=== PATIENT | female | born 1955 | race Caucasian/White ===

== ENCOUNTER 2022-12-29 04:11 | Emergency (ER) | payer OTHER, SELFPAY ==
[2022-12-29 04:17] VITALS: BP 175/77; PULSE 70; RESP 16; TEMP 36.6; O2SAT 97; BMI 33.1
--- NOTE | 2022-12-29 04:42 | ECG_ITS ---
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
[2022-12-29 04:47] LABS: Basophils Percent Auto 0.2 % (0.2-2.0); Eosinophils Absolute Auto 0.3 10^3/uL (0.0-0.7); Eosinophils Percent Auto 3.6 % (0.9-7.0); Hematocrit 35.1 % (36.0-48.0); Immature Granulocytes Abs Auto 0.17 10^3/uL (0.00-0.03); Immature Granulocytes Pct Auto 1.8 % (0.0-0.5); Lymphocytes Absolute Auto 1.3 10^3/uL (1.2-3.8); Lymphocytes Percent Auto 13.7 % (20.5-60.0); Mean Corpuscular HGB Conc 34.2 g/dL (29.9-35.2); Mean Corpuscular Hemoglobin 28.4 pg (26.7-34.0); Mean Platelet Volume 9.8 fL (9.5-13.5); Monocytes Absolute Auto 0.9 10^3/uL (0.3-0.8); Monocytes Percent Auto 10.2 % (1.7-12.0); Neutrophils Absolute Auto 6.5 10^3/uL (1.4-6.5); Neutrophils Percent Auto 70.5 % (43.0-75.0); Platelet Count 269 10^3/uL (150-450); Red Blood Count 4.23 10^6/uL (4.20-5.40); Red Cell Distribution Width 13.7 % (11.0-15.0); White Blood Count 9.2 10^3/uL (4.0-11.0)
[2022-12-29 04:58] LABS: Alanine Aminotransferase 12 U/L (14-59); Albumin Globulin Ratio 0.9; Albumin Level 3.3 g/dL (3.4-5.0); Alkaline Phosphatase 92 U/L (46-116); Anion Gap 10.3; Aspartate Amino Transferase <5 U/L (15-37); BUN Creatinine Ratio 33.3; Bilirubin Total 0.3 mg/dL (0.2-1.0); Calcium 9.2 mg/dL (8.5-10.1); Carbon Dioxide 30.3 mmol/L (21.0-32.0); Chloride 102 mmol/L (98-107); Estimated GFR (African America 56 (>=60); Estimated GFR (Non-African Ame 46 (>=60); Globulin 3.6 g/dL; Glucose 109 mg/dL (74-106); Potassium 3.6 mmol/L (3.5-5.1); Sodium 139 mmol/L (136-145); Total Protein 6.9 g/dL (6.4-8.2)
--- NOTE | 2022-12-29 05:03 | ED.ABDPAIN1 ---
HPI - Abdominal Pain General Chief Complaint: Abdominal Pain Stated Complaint: GENERAL WEAKNESS, 3 WEEKS POST COVID Time Seen by Provider: 12/29/22 04:40 Source: patient Mode of arrival: walk-in Limitations: no limitations History of Present Illness HPI narrative: The patient presented to us with a lower abdominal pain that resolved and she mentioned that she is feeling much better but she had some dizziness yesterday and 1 bowel movement that was loose the day before and the patient admitted that she have history of IBS and this is similar to her regular pain But she wanted to make sure that she is good to go to work at that she is feeling better Related Data Home Medications Medication Instructions Recorded Confirmed carvedilol 25 mg tablet mg 12/29/22 chlorthalidone 25 mg tablet mg 12/29/22 hydroxyzine HCl 10 mg tablet mg 12/29/22 lisinopril 40 mg tablet mg 12/29/22 methylprednisolone 4 mg tablets in mg 12/29/22 a dose pack pantoprazole 40 mg tablet,delayed mg PO 12/29/22 release rosuvastatin 40 mg tablet mg 12/29/22 Allergies Allergy/AdvReac Type Severity Reaction Status Date / Time Sulfa (Sulfonamide Allergy Mild Rash Verified 12/29/22 04:17 Antibiotics) Review of Systems ROS Status of ROS 10 or more systems reviewed and unremarkable except as noted in history and below Exam Narrative Exam Narrative: Nurses notes and vital signs reviewed and patient is not hypoxic. General: Well-appearing and in no apparent distress. Skin: Warm, dry, no pallor noted. No rash. Head: Normocephalic, atraumatic. Neck: Supple, non-tender. Eye: Pupils are equal, round and EOMI. No scleral icterus. Ears, Nose, Mouth, and Throat: TM are clear, no nasal mucosal hypertrophy. Oral mucosa is moist, no posterior oropharynx erythema, uvula is mid-line Cardiovascular: Regular Rate and Rhythm without murmur, gallop or rub. Respiratory: No accessory muscle use or respiratory distress. Lungs are clear to auscultation, no wheezing, rales or rhonchi Chest Wall: no tenderness Back: No midline thoracic or lumbar vertebral tenderness. No CVA tenderness Musculoskeletal: normal ROM, no calf or popliteal tenderness, no lower extremity edema/swelling GI: Abdomen is soft, non-distended. Normal bowel sounds. No masses appreciated. No tenderness to palpation. No rebound, guarding, or rigidity noted. Neurological: A&O x4. No cranial nerve dysfunction observed. No truncal ataxia. Moves all extremities. Sensation intact. Psychiatric: Cooperative and interactive. Normal mood and affect. Constitutional Vital Signs, click to edit/add: Last Vital Signs Temp 97.9 F 12/29/22 04:17 Pulse 70 12/29/22 04:17 Resp 16 12/29/22 04:17 BP 175/77 H 12/29/22 04:17 Pulse Ox 97 12/29/22 04:17 O2 Del Method Room Air 12/29/22 04:17 Course Vital Signs Vital signs: Vital Signs Temperature 97.9 F 12/29/22 04:17 Pulse Rate 70 12/29/22 04:17 Respiratory Rate 16 12/29/22 04:17 Blood Pressure 175/77 H 12/29/22 04:17 Pulse Oximetry 97 12/29/22 04:17 Oxygen Delivery Method Room Air 12/29/22 04:17 Temperature 97.9 F 12/29/22 04:17 Pulse Rate 70 12/29/22 04:17 Respiratory Rate 16 12/29/22 04:17 Blood Pressure 175/77 H 12/29/22 04:17 Pulse Oximetry 97 12/29/22 04:17 Oxygen Delivery Method Room Air 12/29/22 04:17 MDM - Abdominal Pain MDM Narrative Medical decision making narrative: Examination was benign the patient EKG was showing sinus rhythm with a heart rate of [address] elevation or depression The patient abdominal examination showed no tenderness in the CBC and chemistry showed mild acute kidney injury The patient was instructed on hydration The patient blood pressure was noted to be elevated and she did not take her blood pressure medication yet, she was instructed to take her medication on time The patient is to follow up with primary care physician in next 2-3 days or to return to the emergency department should any of the signs or symptoms worsen or new symptoms develop. The patient agrees with the following Diagnosis and Treatment plan and the patient will be discharged home. Lab Data Labs: Lab Results 12/29/22 Range/Units 04:25 WBC 9.2 (4.0-11.0) 10^3/uL RBC 4.23 (4.20-5.40) 10^6/uL Hgb 12.0 (12.0-16.0) g/dL Hct 35.1 L (36.0-48.0) % MCV 83.0 (81.0-99.0) fL MCH 28.4 (26.7-34.0) pg MCHC 34.2 (29.9-35.2) g/dL RDW 13.7 (11.0-15.0) % Plt Count 269 (150-450) 10^3/uL MPV 9.8 (9.5-13.5) fL Neut % (Auto) 70.5 (43.0-75.0) % Lymph % (Auto) 13.7 L (20.5-60.0) % [place] % (Auto) 10.2 (1.7-12.0) % Eos % (Auto) 3.6 (0.9-7.0) % Baso % (Auto) 0.2 (0.2-2.0) % Neut # (Auto) 6.5 (1.4-6.5) 10^3/uL Lymph # (Auto) 1.3 (1.2-3.8) 10^3/uL [place] # (Auto) 0.9 H (0.3-0.8) 10^3/uL Eos # (Auto) 0.3 (0.0-0.7) 10^3/uL Baso # (Auto) 0.0 (0.0-0.1) 10^3/uL Abs Immat Gran (auto) 0.17 H (0.00-0.03) 10^3/uL Imm/Tot Granulo (auto) 1.8 H (0.0-0.5) % Sodium 139 (136-145) mmol/L Potassium 3.6 (3.5-5.1) mmol/L Chloride 102 (98-107) mmol/L Carbon Dioxide 30.3 (21.0-32.0) mmol/L Anion Gap 10.3 BUN 39.0 H (7.0-18.0) mg/dL Creatinine 1.17 H (0.55-1.02) mg/dL Est GFR ( Amer) 56 L (>=60) Est GFR (Non-Af Amer) 46 L (>=60) BUN/Creatinine Ratio 33.3 Glucose 109 H (74-106) mg/dL Calcium 9.2 (8.5-10.1) mg/dL Total Bilirubin 0.3 (0.2-1.0) mg/dL AST <5 L (15-37) U/L ALT 12 L (14-59) U/L Alkaline Phosphatase 92 (46-116) U/L Troponin I High Sens 5.0 (4.0-51.3) pg/mL Total Protein 6.9 (6.4-8.2) g/dL Albumin 3.3 L (3.4-5.0) g/dL Globulin 3.6 g/dL Albumin/Globulin Ratio 0.9 Discharge Plan Discharge Chief Complaint: Abdominal Pain Clinical Impression: Gastroenteritis Patient Disposition: Home, Self-Care Time of Disposition Decision: 05:12 Condition: Good Mode of Transportation: Private Vehicle Prescriptions / Home Meds: No Action carvedilol 25 mg tablet chlorthalidone 25 mg tablet pantoprazole 40 mg tablet,delayed release (DR/EC) PO methylprednisolone 4 mg tablets,dose pack hydroxyzine HCl 10 mg tablet lisinopril 40 mg tablet rosuvastatin 40 mg tablet Instructions: Gastroenteritis (ED) Stand Alone Forms: Portal Instructions Referrals: Farzana Aldana MD [Primary Care Provider] - 1 week
[2022-12-29] MEDS: 0.9 % SODIUM CHLORIDE 1,000 ML 500 ML IV (05:15)
== END 2022-12-29 06:53 | disposition home or self-care (01) ==
PROVIDERS: Emergency Provider Emergency Medicine; PCP Family Medicine
DX: K52.9 Noninfective gastroenteritis and colitis, unspecified (principal); N17.9 Acute kidney failure, unspecified; K58.9 Irritable bowel syndrome, unspecified; Z79.899 Other long term (current) drug therapy
CPT/HCPCS: 36415; 80053; 84484; 85025; 93005; 99284

== ENCOUNTER 2023-03-27 11:16 | Outpatient (OUT) | payer OTHER, SELFPAY ==
--- NOTE | 2023-03-27 | US_ITS ---
[facility] [place] [id number] Patient Name: PEBBLES PEREYRA MRN: [id number] date: 1955 Sex: F Assigned Patient Location: [facility] Current Patient Location: [facility] Accession/Order Number: [id number] Exam Date: 03/27/2023 11:30 Report Date: 03/27/2023 13:41 At the request of: JEFFY RAMOS Procedure: US venous doppler LE RT EXAMINATION: US venous doppler LE RT HISTORY: M25.471 , right ankle swelling COMPARISON: No relevant comparison available. FINDINGS: REGION: Right lower extremity THROMBI: None. COMPRESSIBILITY: Normal compressibility. FLOW: Normal waveform and antegrade flow between 5 and 20 cm/s. OTHER: None. US/US venous doppler LE RT IMPRESSION: 1. No deep vein thrombus within the right lower extremity. Electronically authenticated by: KIRK LEWIS Date: 03/27/2023 13:41
== END 2023-03-27 11:17 | disposition home or self-care (01) ==
PROVIDERS: PCP Family Medicine; Visit Provider Family Medicine
DX: M79.604 Pain in right leg (principal)
CPT/HCPCS: 93971

== ENCOUNTER 2023-05-05 10:18 | Outpatient (OUT) | payer OTHER, SELFPAY ==
--- NOTE | 2023-05-05 10:23 | XR_ITS ---
[address] [address] Patient Name: PEBBLES PEREYRA MRN: [id number] date: 1955 Sex: F Assigned Patient Location: [facility] Current Patient Location: [facility] Accession/Order Number: [id number] Exam Date: 05/05/2023 10:27 Report Date: 05/05/2023 10:55 At the request of: JEFFY RAMOS Procedure: XR lumbar spine 2-3V EXAM: XR lumbar spine 2-3V HISTORY: Low Back Pain M54.50 COMPARISON: None. TECHNIQUE: 3 views Findings/impression: Satisfactory alignment. Maintained vertebral body heights and disc spaces. Mild facet arthropathy of L4-S1. No acute fracture or subluxation. Nonobstructive bowel gas pattern. Electronically authenticated by: JANN ACOSTA Date: 05/05/2023 10:55
== END 2023-05-05 10:19 | disposition home or self-care (01) ==
LOC: RAD 10:20
PROVIDERS: PCP Family Medicine; Visit Provider Family Medicine
DX: M54.50 Low back pain, unspecified (principal)
CPT/HCPCS: 72100

== ENCOUNTER 2023-06-24 08:33 | Outpatient (OUT) | payer OTHER, SELFPAY ==
--- OUTSIDE RECORDS SUMMARY | 2023-06-24 08:38 | XMS_ITS | CCD ---
Author Name Unknown Address [address] [place] [address] Organization [facility] Care Team Providers Care Senior Architectural Designer Name Role Phone Alex Horton Unavailable ARCADIO PRIEST Attending Unavailable Farzana Ramos Unavailable MD Farzana Ramos Attending Provider RICHARD, DR FARZANA Smith Admitting Unavailable RAMOS, DR FARZANA Smith Attending Unavailable RAMOS, DR FARZANA Smith Primary Care Unavailable ZIEBSHIRLEY, DR VICTOR HUGO Burton Consulting Unavailable RAMOS, DR FARZANA Smith Consulting Unavailable MISC, DR MCLAUGHLIN Admitting Unavailable MISC, DR MCLAUGHLIN Attending Unavailable RAMOS, DR FARZANA Smith Primary Care Unavailable MISC, DR MCLAUGHLIN Consulting Unavailable RICHARD, DR FARZANA Smith Admitting Unavailable RAMOS, DR FARZANA Smith Attending Unavailable RAMOS, DR FARZANA Smith Primary Care Unavailable CRISTOBALEBSHIRLEY, DR VICTOR HUGO Burton Consulting Unavailable RICHARD, DR FARZANA Smith Consulting Unavailable RICHARD, DR FARZANA Smith Primary Care Unavailable TUNG, DR JANN Burton Consulting Unavailable TUNG, DR JANN Burton Admitting Unavailable TUNG, DR JANN Burton Attending Unavailable RO BONILLA Consulting Unavailable LEVY BRAND Admitting Unavailable SUNDAY, LEVY Attending Unavailable RAMOS, DR FARZANA Smith Primary Care Unavailable LEVY BRAND Consulting Unavailable WINDY, DR HAQUE Admitting Unavailable WINDY, DR HAQUE Attending Unavailable RICHARD, DR FARZANA Smith Primary Care Unavailable WINDY, DR HAQUE Consulting Unavailable NON STAFF Primary Care Provider UnavailDO Alex Key Attending Provider Jean Paul FRANCISCO Attending Unavailable Gucci Meyers Unavailable Marine Watson Unavailable NON STAFF Primary Care Provider UnavailMD Gucci Christine Attending Provider Farzana Ramos Admitting Unavailable Farzana Ramos Attending Unavailable NON STAFF Primary Care Unavailable Gucci Meyers Admitting UnavailGucci Christine Attending UnavailAlex Key Admitting Unavailable Alex Horton Attending Unavailable NON STAFF Primary Care Unavailable Allergies Allergy Classification Reported Allergen(s) Allergy Type Date of Onset Reaction(s) Facility (17 sources) Sulf-10 Drug allergy Unknown [facility] Other (4 sources) Sulfonamides (Antibiotic); Translations: [SULFA (SULFONAMIDE ANTIBIOTICS)] Propensity to adverse reactions to drug (disorder) 06-02-20 14 [facility] Repository (3 sources) steriod Propensity to adverse reactions 10-17-19 22 Redness of Skin [facility] (1 source) Sulfonamides (Antibiotic) Drug allergy (disorder) 01-10-20 13 [facility] Repository (7 sources) HMG-CoA reductase inhibitor Drug allergy 08-27-19 14 Unknown [facility] Other (12 sources) Penicillin Drug Allergy 07-11-19 17 Unknown [facility] Other (3 sources) Allergies Reconciled Propensity to adverse reactions 04-30-20 21 Unknown [facility] Other (12 sources) Substance with sulfonamide structure and antibacterial mechanism of action (substance) Drug allergy 10-19-19 19 Unknown [facility] Other (3 sources) patient allergy list reviewed by nurse or physicia Propensity to adverse reactions 11-11-19 19 Comment:Done [facility] Other (7 sources) Statins Depletion *DIETARY PRODUCTS/DIETARY MANAGE Propensity to adverse reactions Unknown [facility] Other (1 source) Sulfamethoxazole; Translations: [sulfamethoxazole ] Drug Allergy [facility] Repository Medications Current Medications Medication Drug Class(es) Dates Sig (Normalized) Sig (Original) Aspir-81 (20 sources) Aspir-81 Active carvedilol 25 mg oral tablet (20 sources) alpha-Adrenergic Kalpana, beta-Adrenergic Kalpana Start: 10-17-19 take 25 mg by mouth twice daily Carvedilol Active 25 MG PO Twice daily October 15, 2021 11:00pm escitalopram 10 mg oral tablet (7 sources) Serotonin Reuptake Inhibitor Start: 04-09-20 take 1 tablet by mouth every twenty-four hours Lexapro 10 MG 1 tablet Orally Once a day for 30 day(s) Mar, Active hydroCHLOROthiazide 25 mg oral tablet (12 sources) Thiazide Diuretic Start: 10-17-19 take 25 mg by mouth once daily in the morning Hydrochlorothiazide Active 25 MG PO Every morning October 15, 2021 11:00pm hydrOXYzine hydrochloride 10 mg oral tablet (13 sources) Antihistamine Start: 11-22-19 take 1 tablet by mouth once daily at bedtime as needed hydrOXYzine HCl 10 MG 1 tablet at bedtime as needed Orally qhs prn for 30 days Nov, Active lisinopril 40 mg oral tablet (20 sources) Angiotensin Converting Enzyme Inhibitor take 1 tablet by mouth every twenty-four hours Lisinopril 40 MG 1 tablet Orally Once a day Active take 1 tablet by nazario th every twenty-four hours Lisinopril 10 MG 1 tablet Orally Once a day Active meloxicam 15 mg oral tablet (19 sources) Nonsteroidal Anti-inflammatory Drug Start: 10-16-2021 take 15 mg by mouth once daily in the morning Meloxicam Active 15 MG PO Every morning October 15, 2021 11:00pm Nitro Sublingual 0.4 (5 sources) Nitro Sublingual 0.4 Active nystatin 648085 unt/ml topical cream (10 sources) Polyene Antifungal Nystatin 1000 00 UNIT/GM 1 application Externally Twice a day for 10 days Active Nystatin 828547 UNIT/GM 1 application Externally Twice a day for 10 days Active pantoprazole 40 mg delayed release oral tablet (20 sources) Proton Pump Inhibitor Start: 10-16-2021 take 40 mg by mouth once daily in the morning Pantoprazole Active 40 MG PO Every morning October 15, 2021 11:00pm rosuvastatin calcium 20 mg oral tablet (20 sources) HMG-CoA Reductase Inhibitor Start: 10-16-2021 take 20 mg by mouth once daily at bedtime Rosuvastatin Active 20 MG PO Daily at bedtime October 15, 2021 11:00pm take 1 tablet by mouth every oth er day Rosuvastatin Calcium 40 MG 1 tablet Orally qod for 100 days Active take 1 tablet by nazario th every twenty-four hours Crestor 40 MG 1 tablet Orally Once a day Not-Taking/PRN Completed/Discontinued Medications Medication Drug Class(es) Dates Sig (Normalized) Sig (Original) acetaminophen 325 mg / oxyCODONE hydrochloride 5 mg oral tablet (8 sources) Opioid Agonist Start: 11-14-2021 take 1 tablet by mouth every four to six hours as needed oxyCODONE-Acetami nophen 5-325 MG 1 tablet as needed Orally every 4-6 hrs for 7 days Nov, Not-Taking Start: 10-22-2021 take 1 tablet by nazario th every four hours Oxycodone-Acetaminophen (Percocet) 5-325 mg tablet Active 1 TAB PO Q4H 30 October 22, 2021 Amoxicillin-Pot Clavulanate (1 source) Amoxicillin-Pot Clavulanate Not-Taking cefdinir 300 mg oral capsule (16 sources) Cephalosporin Antibacterial Cefdinir 300 MG as directed Orally Not-Taking/PRN chlorthalidone 25 mg oral tablet (16 sources) Thiazide-like Diuretic take 1 tablet by mouth every twenty-four hours Chlorthalidone 25 MG 1 tablet in the morning with food Orally Once a day Not-Taking/PRN cyclobenzaprine hydrochloride 5 mg oral tablet (4 sources) Muscle Relaxant Start: 2021 take 1 tablet by mouth every eight hours at bedtime as needed Cyclobenzaprine HCl 5 MG 1 tablet at bedtime as needed Orally every 8 hours as needed for 7 days Mar, Not-Taking fluconazole 100 mg oral tablet (16 sources) Azole Antifungal Fluconazole 100 MG 1 tablet Orally Not-Taking/PRN methylPREDNISolone 4 mg oral tablet (4 sources) Corticosteroid Start: 2021 methylPREDNISolone 4 MG as directed Orally for 6 days Mar, Not-Taking Multi For Her - (9 sources) Multi For Her - as directed Orally Not-Taking Multi For Her - as directed Orally Active PEG 3350-KCl-Na Bicarb-NaCl (1 source) PEG 3350-KCl-Na Bicarb-NaCl Not-Taking traMADol hydrochloride 50 mg oral tablet (4 sources) Opioid Agonist Start: 04-02-2022 take 1 tablet by mouth every four to six hours as needed traMADol HCl 50 MG 1 tablet as needed Orally every 4-6 hours as needed for 7 days [facility] # [id number] Mar, Not-Taking triamcinolone acetonide 40 mg/ml injectable suspension (11 sources) Corticosteroid Start: 02-23-2023 Kenalog-40 Feb, 40 mg Problems Active Problems Problem Classification Problem Date Documented Date Episodic/Chronic Adjustment disorders (3 sources) Adjustment disorder with depressed mood; Translations: [Adjustment disorder with depressed mood] Onset: 11-04-2016 Chronic Anxiety disorders (20 sources) Anxiety; Translations: [Other specified anxiety disorders] Chronic Disorders of lipid metabolism (20 sources) Mixed hyperlipidemia; Translations: [Dyslipidemia] Onset: 02-19-2022 Chronic Essential hypertension (20 sources) Essential (primary) hypertension; Translations: [Essential hypertension] Onset: 03-10-2022 Chronic Fluid and electrolyte disorders (16 sources) Hypokalemia; Translations: [Hypokalemia] Episodic Immunizations and screening for infectious disease (3 sources) Vaccination given; Translations: [Encounter for immunization] Episodic Malaise and fatigue (19 sources) Fatigue; Translations: [Other fatigue] Episodic Mycoses (6 sources) Candidiasis of skin and nails; Translations: [Candidiasis of skin and nail] Onset: 11-16-2017 Episodic Nonmalignant breast conditions (3 sources) Inflammatory disorder of breast; Translations: [Mastitis without abscess] Episodic Osteoarthritis (20 sources) Osteoarthritis of left knee joint; Translations: [Unilateral primary osteoarthritis, left knee] Onset: 09-23-2021 Resolved: 10-28-2021 Chronic Other connective tissue disease (1 source) Other specified soft tissue disorders Episodic Other ear and sense organ disorders (3 sources) Otitis externa of left ear; Translations: [Unspecified otitis externa, left ear] Chronic Other ear and sense organ disorders (20 sources) Impacted cerumen; Translations: [Impacted cerumen, left ear] Onset: 10-05-2017 Episodic Other inflammatory condition of skin (1 source) Pruritus, unspecified Episodic Other inflammatory condition of skin (3 sources) Lichen simplex chronicus; Translations: [Lichen simplex chronicus] Episodic Other lower respiratory disease (2 sources) Other forms of dyspnea; Translations: [Other forms of dyspnea] Onset: 07-01-2022 Episodic Other nervous system disorders (19 sources) Abnormal gait; Translations: [Other abnormalities of gait and mobility] Episodic Other non-traumatic joint disorders (20 sources) Arthralgia of the pelvic region and thigh; Translations: [Pain in left hip] Onset: 08-06-2018 Episodic Other non-traumatic joint disorders (2 sources) Effusion, right ankle Episodic Other nutritional; endocrine; and metabolic disorders (3 sources) Simple obesity ; Translations: [Other obesity due to excess calories] Onset: 08-25-2016 Chronic Other nutritional; endocrine; and metabolic disorders (3 sources) Obesity; Translations: [Obesity, unspecified] Chronic Other nutritional; endocrine; and metabolic disorders (3 sources) Body mass index 30+ - obesity; Translations: [Body mass index 31.0-31.9, adult] Onset: 08-25-2016 Chronic Other nutritional; endocrine; and metabolic disorders (6 sources) Obese class I; Translations: [Body mass index 32.0-32.9, adult] Onset: 04-01-2018 Chronic Other screening for suspected conditions (not mental disorders or infectious disease) (4 sources) Encounter for screening mammogram for malignant neoplasm of breast; Translations: [ENC SCR MAMMO MALIG NEOPLASM BREAST] Onset: 09-24-2022 Episodic Other upper respiratory infections (11 sources) Acute pharyngitis, unspecified; Translations: [Acute laryngitis] Onset: 08-26-2013 Episodic Otitis media and related conditions (20 sources) Non-suppurative otitis media; Translations: [Unspecified nonsuppurative otitis media, left ear] Onset: 05-07-2022 Episodic Residual codes; unclassified (2 sources) Other specified postprocedural states Onset: 11-13-2021 Resolved: 11-13-2021 Episodic Residual codes; unclassified (16 sources) Edema; Translations: [Localized edema] Episodic Residual codes; unclassified (19 sources) Insomnia; Translations: [Insomnia, unspecified] Episodic Residual codes; unclassified (7 sources) Asymptomatic menopausal state; Translations: [Menopause] Episodic Residual codes; unclassified (1 source) Family history of malignant neoplasm of kidney; Translations: [FAM HX MALIGNANT NEOPLASM KIDNEY] Onset: 09-29-2022 Episodic Residual codes; unclassified (3 sources) Localized edema; Translations: [Localized edema] Episodic Residual codes; unclassified (3 sources) Postmenopausal state; Translations: [Asymptomatic menopausal state] Episodic Residual codes; unclassified (9 sources) Menopause present; Translations: [Asymptomatic menopausal state] Episodic Spondylosis; intervertebral disc disorders; other back problems (20 sources) Radiculopathy, lumbar region; Translations: [Left side sciatica] Onset: 03-31-2022 Episodic Unclassified (3 sources) Acute candidiasis of vulva and vagina; Translations: [Acute candidiasis of vulva and vagina] Unclassified (1 source) Unilateral primary osteoarthritis, left knee; Translations: [Unilateral primary osteoarthritis, left knee] Onset: 02-23-2023 Varicose veins of lower extremity (1 source) Asymptomatic varicose veins of bilateral lower extremities Episodic Past or Other Problems Problem Classification Problem Date Documented Da te Episodic/Chronic Abdominal pain (3 sources) Abdominal pain; Translations: [Unspecified abdominal pain] Onset: 02-07-2014 Episodic Allergic reactions (3 sources) Contact dermatitis; Translations: [Contact dermatitis and other eczema, due to unspecified cause] Onset: 04-10-2015 Episodic Blindness and vision defects (3 sources) Transient visual loss; Translations: [Transient visual loss] Onset: 06-30-2017 Episodic Chronic obstructive pulmonary disease and bronchiectasis (1 source) Bronchitis, not specified as acute or chronic; Translations: [BRONCHITIS NOT SPEC ACUTE/CHRON] Onset: 05-07-2022 Episodic Gastrointestinal hemorrhage (3 sources) Melena; Translations: [Melena] Onset: 02-25-2018 Episodic Genitourinary symptoms and ill-defined conditions (4 sources) Dysuria; Translations: [Dysuria] Onset: 03-06-2016 Episodic Inflammatory diseases of female pelvic organs (3 sources) Acute vaginitis; Translations: [Acute vaginitis] Onset: 09-13-2018 Episodic Joint disorders and dislocations; trauma-related (5 sources) Other tear of medial meniscus, current injury, left knee, initial encounter; Translations: [Other tear of medial meniscus, current injury, left knee, subsequent encounter] Onset: 11-16-2014 Resolved: 10-14-2021 Episodic Nonspecific chest pain (6 sources) Chest pain; Translations: [Other chest pain] Onset: 08-25-2016 Episodic Other aftercare (1 source) intermediate manager (current) use of aspirin; Translations: [CARE HOME CURRENT USE OF ASPIRIN] Onset: 05-07-2022 Episodic Other aftercare (1 source) 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; Translations: [OTH CARE HOME CURRENT DRUG THERAPY] Onset: 05-07-2022 Episodic Other circulatory disease (3 sources) Cardiovascular symptoms; Translations: [Other specified symptoms and signs involving the circulatory and respiratory systems] Onset: 07-20-2018 Episodic Other eye disorders (3 sources) Pain in eye; Translations: [Ocular pain, bilateral] Onset: 06-30-2017 Episodic Other inflammatory condition of skin (3 sources) Intertrigo; Translations: [Erythema intertrigo] Onset: 09-28-2013 Episodic Other lower respiratory disease (3 sources) Cough; Translations: [Cough] Onset: 11-14-2015 Episodic Other non-traumatic joint disorders (2 sources) Pain in left knee Onset: 09-23-2021 Resolved: 10-14-2021 Episodic Other skin disorders (3 sources) Disorder of skin and/or subcutaneous tissue; Translations: [Unspecified disorder of skin and subcutaneous tissue] Onset: 11-14-2015 Episodic Residual codes; unclassified (3 sources) Requires influenza virus vaccination; Translations: [Need for prophylactic vaccination and inoculation, Influenza] Onset: 02-29-2016 Episodic Residual codes; unclassified (3 sources) Family history of mental disorder; Translations: [Family history of psychiatric condition] Onset: 08-26-2013 Episodic Residual codes; unclassified (3 sources) Chill; Translations: [Chills (without fever)] Onset: 07-20-2018 Episodic Unclassified (1 source) Allergic cough R05.8 Unclassified (1 source) Lumbar pain M54.50 Viral infection (19 sources) Disease caused by 2019-nCoV; Translations: [COVID-19] Results Test Name Value Interpretation Reference Range Facility US venous duplex LE BIon US venous duplex LE [facility] [place] [address] Ultrasound Report Signed Patient: Pebbles Johnson MR#: [id number] : 1955 Acct:[id number] Age/Sex: 68 / F ADM Date: 06/03/23 Loc: [facility] Room: Type: [facility] Attending Dr: Gucci Meyers MD Ordering Provider: Gucci Meyers MD Date of Service: 06/03/23 US/US venous duplex LE BI: I83.813 Copies to: Gucci Meyers MD BILATERAL LOWER EXTREMITY VENOUS DUPLEX INDICATION: Symptomatic varicose veins and right ankle swelling. PROCEDURE: Color-flow duplex scanning is used to interrogate the deep venous system of the right and left lower extremities. The common femoral vein, femoral vein and popliteal vein show good compressibility with normal proximal and distal augmentation. The calf veins are compressible. US/US venous duplex LE BI IMPRESSION: NO EVIDENCE FOR DEEP VEIN THROMBOSIS OR PROXIMAL SUPERFICIAL THROMBOPHLEBITIS IN THE RIGHT OR LEFT LOWER EXTREMITY. Severe reflux of greater than 5 seconds was identified in the greater saphenous vein, bilaterally. The greater saphenous vein was patent from the groin to the ankle, bilaterally. Impression dictated by: Gucci Meyers MD06/03/2023 12:58 PM Dictation Location: [place] [address] Tech: Sondra Longo Transcribed By: SADIA 06/03/23 1258 Dictated By: Gucci Meyers MD 06/03/23 1258 Signed By: 06/03/23 1258 Normal [facility] XR knee LT 3V - NOT FOR ER U Danny 02-23-2023 XR knee LT 3V - NOT FOR ER USE [facility] [place] [address] XRay Report Signed Patient: Pebbles Johnson MR#: [id number] : 1955 Acct:[id number] Age/Sex: 68 / F ADM Date: 02/23/23 Loc: [facility] Room: Type: [facility] Attending Dr: Alex Horton DO Copies to: Alex Horton DO Ordering Provider: Alex Horton DO Date of Service: 02/23/23 XR/XR knee LT 3V - NOT FOR ER USE: Primary osteoarthritis of left knee LEFT KNEE - 3 views CLINICAL HISTORY: Continue left knee pain for months. COMPARISON: Left knee series 07/05/2020 FINDINGS: Mild degenerative changes without acute bony process. XR/XR knee LT 3V - NOT FOR ER USE IMPRESSION: MILD DEGENERATIVE CHANGES WITHOUT ACUTE BONY PROCESS. Impression dictated by: Marc Mak Jr., DVidalOVidal02/23/2023 3:35 PM Dictation Location: [place] [address] Transcribed By: [facility] 02/23/23 1535 Dictated By: Marc Mak Jr, DO 02/23/23 1534 Signed By: 02/23/23 1535 [facility] MG MAMM SCREEN 3D FELICIA CADon 09-24-2022 MG MAMM SCREEN 3D FELICIA CAD Patient: PEBBLES JOHNSON Exam Date: 09/24/2022 : 1955 Gender:F Ordering : DR FARZANA RAMOS M.D. Admission #: [id number] Family : Order #: [id number] CLICK HERE TO VIEW EXAM RADIOLOGY REPORT PROCEDURE: MAMMOGRAM SCREENING 3D BILATERAL CAD COMPARISON: MG MAMM SCREEN 3D FELICIA CAD, 09/09/2021. MG MAMM SCREEN FELICIA W CAD, 05/02/2020. MG MAMM SCREEN FELICIA W CAD, 07/26/2018. DIGITIZED_MAMMO, 11/17/2008. INDICATIONS: Screening mammography Calculator Name NCI Breast Cancer Risk Assessment Tool 5 Year Breast Cancer Risk 1.40% Lifetime Breast Cancer Risk 4.90% Personal Breast Cancer No Personal Ovarian Cancer No Treatments None Family Cancers Mother with kidney cancer at age 30. LOCATION: [facility] BREAST COMPOSITION: Heterogeneously dense,which may obscure small masses. FINDINGS: DIAGNOSTIC CATEGORY 2--BENIGN FINDING: RIGHT BREAST: No significant suspicious finding. No significant change has occurred. LEFT BREAST: No significant suspicious finding. Scattered benign-appearing calcifications are present. No significant change has occurred. RECOMMENDATIONS: ROUTINE MAMMOGRAM AND CLINICAL EVALUATION IN 12 MONTHS. PLEASE NOTE: A NORMAL MAMMOGRAM DOES NOT EXCLUDE THE POSSIBILITY OF BREAST CANCER. A CLINICALLY SUSPICIOUS PALPABLE LUMP SHOULD BE BIOPSIED. Dictated by: Victor Hugo Cesar M.D. on 09/24/2022 at 13:19 Approved by: Victor Hugo Cesar M.D. on 09/24/2022 at 13:25 Normal [facility] Urinalysis - DIPSTICKon 04- Appearance (U) clear [employer] Other Bilirubin Ql (U) small [employer] Other Color (U) yellow [facility] Other Glucose Ql (U) Negative [employer] Other Hemoglobin Ql (U) Negative [employer] Other Ketones Ql (U) off chart [employer] Other Leukocyte esterase Test strip Ql (U) Negative [facility] Other Nitrite Ql (U) Negative [employer] Other pH (U) 5.0 [pH] [facility] Other Protein Ql (U) Negative [employer] Other Specific gravity (U) [Rel density] 1.010 [facility] Other Urobilinogen (U) [Mass/Vol] 0.2 mg/dL [facility] Other Urinalysis - DIPSTICK [facility] Other Urine Cultureon 09-24-2022 Bacteria identified Cx Nom (U) <9,000 colonies/ml mixed bacterial skin contaminants 2 Days PERFORMED BY: [place] [address] PATHOLOGIST BRIDGE MECHANIC DARRICK GARZA M.D. Normal [facility] Comment on above: Performed By: #### C UU #### [facility] [address] [place] [address] LIPID PROFILEon 07-05-2022 CHOL-HDL RATIO NORM SEE BELOW Normal [facility] Comment on above: Result Comment: 3.3 - 4.4 LOW RISK 4.4 - 7.1 AVERAGE RISK 7.1 - 11.0 MODERATE RISK >11.0 HIGH RISK Performed By: #### L IPID #### [facility] [address] [place] [address] Dr. Carlos Barlow Cholesterol [Mass/Vol] 181 mg/dL Normal <=200 [facility] Comment on above: Performed By: #### L IPID #### [facility] [address] [place] [address] [address] Carlos Barlow Cholesterol in HDL [Mass/Vol] 63 mg/dL Critically high 40-60 [facility] Comment on above: Performed By: #### L IPID #### [facility] [address] [place] [id number] Carlos Barlow Cholesterol in LDL [Mass/Vol] 88.0 mg/dL Normal [facility] Comment on above: Performed By: #### L IPID #### [facility] [address] [place] [address] [address] Carlos Barlow Cholesterol.total /Cholesterol in HDL [Mass ratio] 2.9 {ratio} Normal [facility] Comment on above: Performed By: #### L IPID #### [facility] [address] [place] [address] [address] Carlos Barlow HDL NORMAL > or = 60 mg/dl - LO W CARDIOVASCULAR RISK <40 mg/dl - HIGH CARDIOVASCULAR RISK Normal [facility] Comment on above: Performed By: #### L IPID #### [facility] [address] [address] [address] Carlos Barlow LDL CALC NORMAL SEE BELOW Normal [facility] Comment on above: Result Comment: <100 mg/dl OPTIMAL 100 - 129 mg/dl NEAR OR ABOVE OPTIMAL 130 - 159 mg/dl BORDERLINE HIGH 160 - 189 mg/dl HIGH >190 mg/dl VERY HIGH Performed By: #### L IPID #### [facility] [address] [address] [address] Carlos Barlow Triglyceride [Mass/Vol] 150 mg/dL Normal <=150 [facility] Comment on above: Performed By: #### L IPID #### [facility] [address] [address] [address] Carlos Barlow VLDL CALC 30.0 mg/dL Normal [facility] Comment on above: Performed By: #### L IPID #### [facility] [address] [place], [place] [address] Dr. Carlos Barlow 37on 07-01-2022 37 -Check cholesterol blood work when fasting -Continue current medications Normal [facility] Office Visiton 07-01-2022 Follow-up visit [id number] Pebbles Johnson 1955 F Date Provider Department Center 07/01/2022 [id number] LARIOS [facility] No family history on file Level of Service:57223 MS OFFICE/OUTPATIENT ESTABLISHED LOW MDM 20-29 MIN Reason for Visit and Comments: Hypertension [701328] Hyperlipidemia [182] Normal [facility] XR CHEST 1 Von 05-05-2022 XR CHEST 1 V EXAM: XR CHEST 1 V HISTORY: COUGH COMPARISON: 10/11/2019 TECHNIQUE: Chest single view. FINDINGS: Lines/tubes/devices: None. Cardiomediastinum: Cardiac silhouette appears normal in size. Unremarkable mediastinal silhouette. Vasculature: No increased pulmonary vasculature. Lungs/pleura: No consolidation, sizeable effusion, or visible pneumothorax. Mild coarsening of interstitial lung markings suggested, similar to the prior exam, likely chronic changes. Mild biapical thickening. Suspect small granulomas, most visible towards the right lung apex. Bones/soft tissues: Bony thorax appears grossly intact as seen. IMPRESSION: No acute cardiopulmonary findings. Electronically authenticated by: RO BONILLA Date: 2022-05-05 06:41 Normal [facility] XR NECK SOFT TISSUEon 2021 XR NECK SOFT TISSUE EXAM: XR NECK SOFT TISSUE HISTORY: COUGH COMPARISON: None. FINDINGS: 2 views of the neck were obtained using soft tissue technique. The airway appears patent and nondistended. Epiglottis and aryepiglottic folds appear well-defined. No pathologic prevertebral soft tissue thickening is seen. No unexpected radiopaque foreign body is seen. Mild degenerative changes of the cervical spine with mild narrowing of the disc spaces and small disc marginal osteophytes at the C4-C5 and C5-C6 levels. IMPRESSION: No acute radiographic abnormality of the neck soft tissues. Electronically authenticated by: RO BONILLA Date: 2022-05-05 06:42 Normal [facility] XR LSPINE MIN 4 VIEWSon 03-15 XR LSPINE MIN 4 VIEWS EXAMINATION: XR LSPINE MIN 4 VIEWS HISTORY: Left side sciatica ; low back and left hip pain for 2 weeks COMPARISON: No relevant comparison available. FINDINGS: BONES: 3 mm anterior listhesis of L4 on 5. Moderate degenerative facet arthropathy L4-L5, L5-S1. No fracture or bone lesion. DISC SPACES: Mild narrowing L4-L5, L5-S1. PARASPINOUS: Negative. No paraspinous abnormality is seen. OTHER: Negative. IMPRESSION: 1. 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 Electronically authenticated by: VICTOR HUGO CESAR Date: 2022-04-01 06:49 Normal [facility] 36on 03-24-2022 36 Patient called c/o increased muscle cramps and pain since Crestor was increased to 40mg daily on 02/25/2022. She has been in severe pain and unable to ambulate at times. She states she cannot tolerate bigger dose. Any recommendations? Please advise. Thanks. 03/25/22: Spoke with patient and made her aware of Dr. Temple's suggestion. She will try it and let us know. Normal [facility] LIPID PROFILEon 03-10-2022 CHOL-HDL RATIO NORM SEE BELOW Normal [facility] Comment on above: Result Comment: 3.3 - 4.4 LOW RISK 4.4 - 7.1 AVERAGE RISK 7.1 - 11.0 MODERATE RISK >11.0 HIGH RISK Performed By: #### B MP, LIPID, LIVER #### [facility] [address] [address] [address] Carlos Barlow Cholesterol [Mass/Vol] 186 mg/dL Normal <=200 [facility] Comment on above: Performed By: #### B MP, LIPID, LIVER #### [facility] [address] [address] [address] Carlos Barlow Cholesterol in HDL [Mass/Vol] 61 mg/dL Critically high 40-60 [facility] Comment on above: Performed By: #### B MP, LIPID, LIVER #### [facility] [address] [address] [address] Carlos Barlow Cholesterol in LDL [Mass/Vol] 90.4 mg/dL Normal [facility] Comment on above: Performed By: #### B MP, LIPID, LIVER #### [facility] [address] [address] [address] Carlos Barlow Cholesterol.total /Cholesterol in HDL [Mass ratio] 3.0 {ratio} Normal [facility] Comment on above: Performed By: #### B MP, LIPID, LIVER #### [facility] [address] [address] [address] Carlos Barlow HDL NORMAL > or = 60 mg/dl - LO W CARDIOVASCULAR RISK <40 mg/dl - HIGH CARDIOVASCULAR RISK Normal [facility] Comment on above: Performed By: #### B MP, LIPID, LIVER #### [facility] [address] [address] [address] Carlos Barlow LDL CALC NORMAL SEE BELOW Normal [facility] Comment on above: Result Comment: <100 mg/dl OPTIMAL 100 - 129 mg/dl NEAR OR ABOVE OPTIMAL 130 - 159 mg/dl BORDERLINE HIGH 160 - 189 mg/dl HIGH >190 mg/dl VERY HIGH Performed By: #### B MP, LIPID, LIVER #### [facility] [address] [place] [address] Dr. Carlos Barlow Triglyceride [Mass/Vol] 173 mg/dL Critically high <=150 [facility] Comment on above: Performed By: #### B MP, LIPID, LIVER #### [facility] [address] [address] [address] Carlos Barlow VLDL CALC 34.6 mg/dL Normal [facility] Comment on above: Performed By: #### B MP, LIPID, LIVER #### [facility] [address] [place] [address] Dr. Carlos Barlow LIVER PROFILEon 03-10-2022 Albumin [Mass/Vol] 3.6 g/dL Normal 3.4-5.0 [facility] Comment on above: Performed By: #### B MP, LIPID, LIVER #### [facility] [address] [place] [address] Dr. Carlos Barlow Albumin/Globulin [Mass ratio] 1.1 {ratio} Normal [facility] Comment on above: Performed By: #### B MP, LIPID, LIVER #### [facility] [address] [address] [address] Carlos Barlow ALP [Catalytic activity/Vol] 92 U/L Normal 46-116 [facility] Comment on above: Performed By: #### B MP, LIPID, LIVER #### [facility] [address] [address] [address] Carlos Barlow ALT [Catalytic activity/Vol] 20 U/L Normal 14-59 [facility] Comment on above: Performed By: #### B MP, LIPID, LIVER #### [facility] [address] [address] [address] Carlos Barlow AST [Catalytic activity/Vol] 16 U/L Normal 15-37 [facility] Comment on above: Performed By: #### B MP, LIPID, LIVER #### [facility] [address] [address] [address] Carlos Barlow BILI, CONJUGATED 0.1 mg/dL Normal 0.0-0.2 [facility] Comment on above: Performed By: #### B MP, LIPID, LIVER #### [facility] [address] [address] [address] Carlos Barlow Bilirubin [Mass/Vol] 0.3 mg/dL Normal 0.2-1.0 [facility] Comment on above: Performed By: #### B MP, LIPID, LIVER #### [facility] [address] [address] [address] Carlos Barlow Globulin (S) [Mass/Vol] 3.4 g/dL Normal [facility] Comment on above: Performed By: #### B MP, LIPID, LIVER #### [facility] [address] [address] [address] Carlos Barlow Protein [Mass/Vol] 7.0 g/dL Normal 6.4-8.2 [facility] Comment on above: Performed By: #### B MP, LIPID, LIVER #### [facility] [address] [address] [address] Carlos Barlow PROF CHEM 8 (BAS METB)on Anion gap [Moles/Vol] 12.0 mmol/L Normal [facility] Comment on above: Performed By: #### B MP, LIPID, LIVER ####[facility] [address] [address]Dr. Carlos Barlow Calcium [Mass/Vol] 9.6 mg/dL Normal 8.5-10.1 [facility] Comment on above: Performed By: #### B MP, LIPID, LIVER ####[facility] [address] [address]Dr. Carlos Barlow Chloride [Moles/Vol] 105 mmol/L Normal 98-107 [facility] Comment on above: Performed By: #### B MP, LIPID, LIVER ####[facility] [address] [address]Dr. Carlos Barlow CO2 [Moles/Vol] 26.5 mmol/L Normal 21.0-32.0 [facility] Comment on above: Performed By: #### B MP, LIPID, LIVER ####[facility] [address] [address]Dr. Carlos Barlow Creatinine [Mass/Vol] 0.89 mg/dL Normal 0.55-1.02 [facility] Comment on above: Performed By: #### B MP, LIPID, LIVER ####[facility] [address] [address]Dr. Carlos Barlow EGFR-AF TAJIK >60 Normal >=60 [facility] Comment on above: Performed By: #### B MP, LIPID, LIVER ####[facility] [address] [address]Dr. Carlos Barlow EGFR-NON AF TAJIK >60 Normal >=60 [facility] Comment on above: Performed By: #### B MP, LIPID, LIVER ####[facility] [address] [address]Dr. Carlos Barlow Glucose [Mass/Vol] 116 mg/dL Critically high 74-106 [facility] Comment on above: Performed By: #### B MP, LIPID, LIVER ####[facility] [address] [address]Dr. Carlos Barlow Potassium [Moles/Vol] 4.0 mmol/L Normal 3.5-5.1 [facility] Comment on above: Performed By: #### B MP, LIPID, LIVER ####[facility] [address] [address]Dr. Carlos Barlow Sodium [Moles/Vol] 139 mmol/L Normal 136-145 [facility] Comment on above: Performed By: #### B MP, LIPID, LIVER ####[facility] [address] [address]Dr. Dulceulices Barlow Urea nitrogen [Mass/Vol] 24.0 mg/dL Critically high 7.0-18.0 [facility] Comment on above: Performed By: #### B MP, LIPID, LIVER ####[facility] [address] [address]Dr. Carlos Barlow Urea nitrogen/Creatini ne [Mass ratio] 26.9 mg/mg Normal [facility] Comment on above: Performed By: #### B MP, LIPID, LIVER ####[facility] [address] [address]Dr. Carlos Barlow Orders Onlyon 02-21-2022 Orders Only [id number] Pebbles Johnson 1955 F Date Provider Department Center 02/21/2022 RadhikaEVERARDO FALCON [facility] No family history on file Normal [facility] CBC AUTO DIFFon 02-19-2022 BASO # 0.0 103/ul Normal 0.0-0.1 [facility] Comment on above: Performed By: #### C BC ####[facility] [address] [place], [place] [address]Dr. Carlos Barlow Basophils/100 WBC (Bld) 0.4 % Normal 0.2-2.0 [facility] Comment on above: Performed By: #### C BC ####[facility] [address] [address]Dr. Carlos Barlow EO # 0.2 103/ul Normal 0.0-0.7 [facility] Comment on above: Performed By: #### C BC ####[facility] [address] [address]Dr. Carlos Barlow Eosinophils/100 WBC (Bld) 4.1 % Normal 0.9-7.0 [facility] Comment on above: Performed By: #### C BC ####[facility] [address] [address]Dr. Carlos Barlow Erythrocyte distribution width (RBC) [Ratio] 13.2 % Normal 11.0-15.0 [facility] Comment on above: Performed By: #### C BC ####[facility] [address] [place], [place] [address]Dr. Carlos Barlow Hematocrit (Bld) [Volume fraction] 37.9 % Normal 36.0-48.0 [facility] Comment on above: Performed By: #### C BC ####[facility] [address] [place], [place] [address]Dr. Carlos Barlow Hemoglobin (Bld) [Mass/Vol] 12.7 g/dL Normal 12.0-16.0 [facility] Comment on above: Performed By: #### C BC ####[facility] [address] [place], [place] [address]Dr. Carlos Barlow IG # 0.02 10e3/ul Normal 0.00-0.03 [facility] Comment on above: Performed By: #### C BC ####[facility] [address] [place], [place] [address]Dr. Carlos Barlow IG % 0.4 % Normal 0.0-0.5 [facility] Comment on above: Performed By: #### C BC ####[facility] [address] [place], [place] [address]Dr. Carlos Barlow LYMPH # 0.9 103/ul Critically low 1.2-3.8 [facility] Comment on above: Performed By: #### C BC ####[facility] [address] [place], [place] [address]Dr. Carlos Barlow Lymphocytes/100 WBC (Bld) 17.7 % Critically low 20.5-60.0 [facility] Comment on above: Performed By: #### C BC ####[facility] [address] [place], [place] [address]Dr. Carlos Barlow MANUAL DIFF REQ NO Normal [facility] Comment on above: Performed By: #### C BC ####[facility] [address] [id number][address] Carlos Barlow MCH (RBC) [Entitic mass] 28.4 pg Normal 26.7-34.0 [facility] Comment on above: Performed By: #### C BC ####[facility] [address] [id number]. Carlos Barlow MCHC (RBC) [Mass/Vol] 33.5 g/dL Normal 29.9-35.2 [facility] Comment on above: Performed By: #### C BC ####[facility] [address] [address]Dr. Carlos Cain MCV (RBC) [Entitic vol] 84.8 fL Normal 81.0-99.0 [facility] Comment on above: Performed By: #### C BC ####[facility] [address] [place], [place] [address]Dr. Carlos Barlow MONO # 0.7 103/ul Normal 0.3-0.8 [facility] Comment on above: Performed By: #### C BC ####[facility] [address] [place], [place] [address]Dr. Dulceulices Barlow Monocytes/100 WBC (Bld) 13.4 % Critically high 1.7-12.0 [facility] Comment on above: Performed By: #### C BC ####[facility] [address] [place], [place] [address]Dr. Carlos Barlow NEUT # 3.3 103/ul Normal 1.4-6.5 [facility] Comment on above: Performed By: #### C BC ####[facility] [address] [place], [place] [address]Dr. Dulceulices Barlow Neutrophils/100 WBC (Bld) 64.0 % Normal 43.0-75.0 [facility] Comment on above: Performed By: #### C BC ####[facility] [address] [place], [place] [address]Dr. Carlos Barlow Platelet mean volume (Bld) [Entitic vol] 10.5 fL Normal 9.5-13.5 [facility] Comment on above: Performed By: #### C BC ####[facility] [address] [place], [place] [address]Qb. Dulceulices Barlow PLT 252 103/ul Normal 150-450 [facility] Comment on above: Performed By: #### C BC ####[facility] [address] [place], [place] [address]Zf. Carlos Barlow RBC 4.47 106/ul Normal 4.20-5.40 [facility] Comment on above: Performed By: #### C BC ####[facility] [address] [place], [place] [address]Nb. Carlos Barlow WBC 5.2 103/ul Normal 4.0-11.0 [facility] Comment on above: Performed By: #### C BC ####[facility] [address] [place], [place] [address]Qi. Carlos Barlow LIPID PROFILEon 02-19-2022 CHOL-HDL RATIO NORM SEE BELOW Normal [facility] Comment on above: Result Comment: 3.3 - 4.4 LOW RISK 4.4 - 7.1 AVERAGE RISK 7.1 - 11.0 MODERATE RISK >11.0 HIGH RISK Performed By: #### C MP, LIPID #### [facility] [address] [address] [address] Carlos Barlow Cholesterol [Mass/Vol] 241 mg/dL Critically high <=200 [facility] Comment on above: Performed By: #### C MP, LIPID #### [facility] [address] [address] [address] Carlos Barlow Cholesterol in HDL [Mass/Vol] 51 mg/dL Normal 40-60 [facility] Comment on above: Performed By: #### C MP, LIPID #### [facility] [address] [address] [address] Carlos Barlow Cholesterol in LDL [Mass/Vol] 133.8 mg/dL Normal [facility] Comment on above: Performed By: #### C MP, LIPID #### [facility] [address] [address] [address] Carlos Barlow Cholesterol.total /Cholesterol in HDL [Mass ratio] 4.7 {ratio} Normal [facility] Comment on above: Performed By: #### C MP, LIPID #### [facility] [address] [address] [address] Carlos Barlow HDL NORMAL > or = 60 mg/dl - LO W CARDIOVASCULAR RISK <40 mg/dl - HIGH CARDIOVASCULAR RISK Normal [facility] Comment on above: Performed By: #### C MP, LIPID #### [facility] [address] [address] [address] Carlos Barlow LDL CALC NORMAL SEE BELOW Normal [facility] Comment on above: Result Comment: <100 mg/dl OPTIMAL 100 - 129 mg/dl NEAR OR ABOVE OPTIMAL 130 - 159 mg/dl BORDERLINE HIGH 160 - 189 mg/dl HIGH >190 mg/dl VERY HIGH Performed By: #### C MP, LIPID #### [facility] [address] [place] [address] Dr. Carlso Barlow Triglyceride [Mass/Vol] 281 mg/dL Critically high <=150 [facility] Comment on above: Performed By: #### C MP, LIPID #### [facility] [address] [place] [address] Dr. Carlos Barlow VLDL CALC 56.2 mg/dL Normal [facility] Comment on above: Performed By: #### C MP, LIPID #### [facility] [address] [place] [address] Dr. Carlos Barlow PROF 14(COMP METB)on 022 Albumin [Mass/Vol] 3.3 g/dL Critically low 3.4-5.0 [facility] Comment on above: Performed By: #### C MP, LIPID #### [facility] [address] [address] [address] Carlos Barlow Albumin/Globulin [Mass ratio] 0.9 {ratio} Normal [facility] Comment on above: Performed By: #### C MP, LIPID #### [facility] [address] [address] [address] Carlos Barlow ALP [Catalytic activity/Vol] 96 U/L Normal 46-116 [facility] Comment on above: Performed By: #### C MP, LIPID #### [facility] [address] [address] [address] Carlos Barlow ALT [Catalytic activity/Vol] 21 U/L Normal 14-59 [facility] Comment on above: Performed By: #### C MP, LIPID #### [facility] [address] [address] [address] Carlos Barlow Anion gap [Moles/Vol] 7.2 mmol/L Normal [facility] Comment on above: Performed By: #### C MP, LIPID #### [facility] [address] [address] [address] Carlos Barlow AST [Catalytic activity/Vol] 14 U/L Critically low 15-37 [facility] Comment on above: Performed By: #### C MP, LIPID #### [facility] [address] [place] [address] Dr. Carlos Barlow Bilirubin [Mass/Vol] 0.2 mg/dL Normal 0.2-1.0 [facility] Comment on above: Performed By: #### C MP, LIPID #### [facility] [address] [place] [address] Dr. Carlos Barlow Calcium [Mass/Vol] 9.5 mg/dL Normal 8.5-10.1 [facility] Comment on above: Performed By: #### C MP, LIPID #### [facility] [address] [place] [address] Dr. Carlos Barlow Chloride [Moles/Vol] 103 mmol/L Normal 98-107 [facility] Comment on above: Performed By: #### C MP, LIPID #### [facility] [address] [address] [address] Carlos Barlow CO2 [Moles/Vol] 32.1 mmol/L Critically high 21.0-32.0 [facility] Comment on above: Performed By: #### C MP, LIPID #### [facility] [address] [place] [address] Dr. Carlos Barlow Creatinine [Mass/Vol] 0.80 mg/dL Normal 0.55-1.02 [facility] Comment on above: Performed By: #### C MP, LIPID #### [facility] [address] [address] [address] Carlos Barlow EGFR-AF TAJIK >60 Normal >=60 [facility] Comment on above: Performed By: #### C MP, LIPID #### [facility] [address] [address] [address] Carlos Barlow EGFR-NON AF TAJIK >60 Normal >=60 [facility] Comment on above: Performed By: #### C MP, LIPID #### [facility] [address] [address] [address] Carlos Barlow Globulin (S) [Mass/Vol] 3.5 g/dL Normal [facility] Comment on above: Performed By: #### C MP, LIPID #### [facility] [address] [place] [address] Dr. Carlos Barlow Glucose [Mass/Vol] 110 mg/dL Critically high 74-106 [facility] Comment on above: Performed By: #### C MP, LIPID #### [facility] [address] [address] [address] Carlos Barlow Potassium [Moles/Vol] 4.3 mmol/L Normal 3.5-5.1 [facility] Comment on above: Performed By: #### C MP, LIPID #### [facility] [address] [place] [address] Dr. Carlos Barlow Protein [Mass/Vol] 6.8 g/dL Normal 6.4-8.2 [facility] Comment on above: Performed By: #### C MP, LIPID #### [facility] [address] [address] [address] Carlos Barlow Sodium [Moles/Vol] 138 mmol/L Normal 136-145 [facility] Comment on above: Performed By: #### C MP, LIPID #### [facility] [address] [address] [address] Carlos Barolw Urea nitrogen [Mass/Vol] 15.0 mg/dL Normal 7.0-18.0 [facility] Comment on above: Performed By: #### C MP, LIPID #### [facility] [address] [place], [place] [address] Dr. Carlos Barlow Urea nitrogen/Creatini ne [Mass ratio] 18.8 mg/mg Normal [facility] Comment on above: Performed By: #### C MP, LIPID #### [facility] [address] [place], [place] [address] Dr. Carlos Barlow Vital Signs Date Time Vital Sign Value Performing Clinician Facility 06-03-2023 09:00-0500 Body height 149.86 cm Marine Watson Other [facility] Other 06-03-2023 09:00-0500 Body mass index (BMI) [Ratio] 33.93 kg/m2 Marine Watson Other [facility] Other 06-03-2023 09:00-0500 Body temperature 96.7 [degF] Marine Watson Other [facility] Other 06-03-2023 09:00-0500 Body weight 76.2 kg Marine Shirley Other [facility] Other 06-03-2023 09:00-0500 Diastolic blood pressure 80 mm[Hg] Marine Watson Other [facility] Other 06-03-2023 09:00-0500 SaO2% (BldA) [Mass fraction] 96 % Marine Watson Other [facility] Other 06-03-2023 09:00-0500 Systolic blood pressure 142 mm[Hg] Marine Watson Other [facility] Other 05-05-2023 09:45-0500 Body height 149.86 cm Farzana Ramos Other [facility] Other 05-05-2023 09:45-0500 Body mass index (BMI) [Ratio] 33.93 kg/m2 Farzana Ramos Other [facility] Other 05-05-2023 09:45-0500 Body weight 76.2 kg Farzana Ramos Other [facility] Other 05-05-2023 09:45-0500 Diastolic blood pressure 76 mm[Hg] Farzana Ramos Other [facility] Other 05-05-2023 09:45-0500 Systolic blood pressure 142 mm[Hg] Farzana Ramos Other [facility] Other 04-29-2023 09:45-0500 Body height 149.86 cm Gucci Meyers Other [facility] Other 04-29-2023 09:45-0500 Body mass index (BMI) [Ratio] 34.53 kg/m2 Gucci Meyers Other [facility] Other 04-29-2023 09:45-0500 Body temperature 97.4 [degF] Gucci Meyers Other [facility] Other 04-29-2023 09:45-0500 Body weight 77.57 kg Gucci Meyers Other [facility] Other 04-29-2023 09:45-0500 Diastolic blood pressure 62 mm[Hg] Gucci Meyers Other [facility] Other 04-29-2023 09:45-0500 SaO2% (BldA) [Mass fraction] 99 % Gucci Meyers Other [facility] Other 04-29-2023 09:45-0500 Systolic blood pressure 140 mm[Hg] Gucci Meyers Other [facility] Other 04-09-2023 09:15-0400 Body height 149.86 cm Farzana Ramos Other [facility] Other 04-09-2023 09:15-0400 Body mass index (BMI) [Ratio] 34.53 kg/m2 Farzana Ramos Other [facility] Other 04-09-2023 09:15-0400 Body weight 77.57 kg Farzana Ramos Other [facility] Other 04-09-2023 09:15-0400 Diastolic blood pressure 78 mm[Hg] Farzana Ramos Other [facility] Other 04-09-2023 09:15-0400 Systolic blood pressure 151 mm[Hg] Farzana Ramos Other [facility] Other 03-27-2023 10:30-0400 Body height 149.86 cm Farzana Ramos Other [facility] Other 03-27-2023 10:30-0400 Body mass index (BMI) [Ratio] 35.75 kg/m2 Farzana Ramos Other [facility] Other 03-27-2023 10:30-0400 Body weight 80.29 kg Farzana Ramos Other [facility] Other 03-27-2023 10:30-0400 Diastolic blood pressure 81 mm[Hg] Farzana Ramos Other [facility] Other 03-27-2023 10:30-0400 Systolic blood pressure 147 mm[Hg] Farzana Ramos Other [facility] Other 03-11-2023 11:00-0400 Body height 149.86 cm Farzana Ramos Other [facility] Other 03-11-2023 11:00-0400 Body mass index (BMI) [Ratio] 33.73 kg/m2 Farzana Ramos Other [facility] Other 03-11-2023 11:00-0400 Body weight 75.75 kg Farzana Ramos Other [facility] Other 03-11-2023 11:00-0400 Diastolic blood pressure 66 mm[Hg] Farzana Ramos Other [facility] Other 03-11-2023 11:00-0400 Systolic blood pressure 109 mm[Hg] Farzana Ramos Other [facility] Other 11-21-2022 10:45-0400 Body height 149.86 cm Farzana Ramos Other [facility] Other 11-21-2022 10:45-0400 Body mass index (BMI) [Ratio] 33.12 kg/m2 Farzana Ramos Other [facility] Other 11-21-2022 10:45-0400 Body weight 74.39 kg Farzana Ramos Other [facility] Other 11-21-2022 10:45-0400 Diastolic blood pressure 70 mm[Hg] Farzana Ramos Other [facility] Other 11-21-2022 10:45-0400 Systolic blood pressure 112 mm[Hg] Farzana Ramos Other [facility] Other 10-14-2021 10:45-0400 Body height 149.86 cm Alex Horton Other [facility] Other 10-14-2021 10:45-0400 Body mass index (BMI) [Ratio] 33.93 kg/m2 Alex Sol Other [facility] Other 10-14-2021 10:45-0400 Body weight 76.2 kg Alex Sol Other [facility] Other 09-23-2021 11:15-0400 Body height 149.86 cm Alex Sol Other [facility] Other 09-23-2021 11:15-0400 Body mass index (BMI) [Ratio] 33.12 kg/m2 Alex Sol Other [facility] Other 09-23-2021 11:15-0400 Body weight 74.39 kg Alex Sol Other [facility] Other Encounters Encounter Date Encounter Type Care Provider Facility Start: 06-29-2023 ambulatory Jean Paul Stone ty:[facility] Start: 06-03-2023 End: 06-03-2023 Patient encounter procedure Marine Watson [facility] V[facility] Surgery Start: 06-03-2023 End: 06-03-2023 ambulatory NON STAFF [facility] Other Start: 05-20-2023 End: 05-20-2023 ambulatory Farzana Ramos Other [facility] Other Start: 05-20-2023 Telephone encounter Farzana Ramos [facility] Start: 05-05-2023 End: 05-05-2023 ambulatory Farzana Ramos Other [facility] Other Start: 05-05-2023 Office outpatient vi sit 15 minutes Farzana Ramos [facility] Start: 04-29-2023 End: 04-29-2023 ambulatory Gucci Luigi Other [facility] Other Start: 04-29-2023 Office outpatient ne w 30 minutes Gucci Meyers [facility] Start: 04-29-2023 Telephone encounter Gucci Terry [facility] Start: 04-21-2023 End: 04-21-2023 ambulatory Alex Horton Other [facility] Other Start: 04-21-2023 Telephone encounter Alex Horton [facility] Start: 04-09-2023 End: 04-09-2023 ambulatory Farzana Ramos Other [facility] Other Start: 04-09-2023 Office outpatient vi sit 15 minutes Farzana Ramos [facility] Start: 03-30-2023 End: 03-30-2023 ambulatory Farzana Ramos Other [facility] Other Start: 03-30-2023 Telephone encounter Farzana Ramos [facility] Start: 03-27-2023 End: 03-27-2023 ambulatory Farzana Ramos Other [facility] Other Start: 03-27-2023 Office outpatient vi sit 15 minutes Farzana Ramos [facility] Start: 03-24-2023 End: 03-24-2023 ambulatory Farzana Ramos Other [facility] Other Start: 03-24-2023 Telephone encounter Farzana Ramos [facility] Start: 03-23-2023 ambulatory Jean Paul FRANCISCO Facility :[facility] Start: 03-11-2023 End: 03-11-2023 ambulatory Farzana Ramos Other [facility] Other Start: 03-11-2023 Office outpatient vi sit 15 minutes Farzana Ramos [facility] Start: 02-23-2023 End: 02-23-2023 ambulatory Alex Horton Facility:[facility] Start: 02-23-2023 End: 02-23-2023 ambulatory NON STAFF [facility] Work Phone: Start: 02-23-2023 End: 02-23-2023 Patient encounter procedure [facility] Start: 02-03-2023 End: 02-03-2023 ambulatory Farzana Ramos Other [facility] Other Start: 02-03-2023 Telephone encounter Farzana Ramos [facility] Start: 11-21-2022 End: 11-21-2022 ambulatory Farzana Ramos Other [facility] Other Start: 11-21-2022 Office outpatient vi sit 15 minutes Farzana Ramos [facility] Start: 09-26-2022 End: 09-26-2022 ambulatory Farzana Ramos Other [facility] Other Start: 09-26-2022 Telephone encounter Farzana Ramos [facility] Start: 09-24-2022 Nursing evaluation o f patient and report Farzana Ramos [facility] Start: 09-24-2022 End: 09-25-[address] FARZANA RAMOS [facility] Work Phone: Start: 09-24-2022 End: 09-24-2022 Departed Referred MD Farzana Ramos Work Phone: [facility] [place] Work Phone: Start: 07-07-2022 (Televisit) Televisit Farzana De La Cruz [facility] Start: 07-07-2022 End: 07-07-2022 ambulatory Farzana Ramos Other [facility] Other Start: 07-05-2022 End: 07-06-[address] DOCTOR MCCULLOUGH Facility:[facility] Start: 07-01-2022 End: 07-01-2022 [facility] Start: 05-13-2022 Adult health examination Farzana Ramos Other [facility] Other Start: 05-05-2022 End: 05-05-[address] FARZANA RAMOS Facility:[facility] Start: 04-02-2022 End: 04-02-2022 ambulatory Alex Horton Other [facility] Other Start: 04-02-2022 Office outpatient vi sit 15 minutes Alex Horton [facility] Start: 03-31-2022 End: 04-01-[address] FARZANA RAMOS Facility:[facility] Start: 03-10-2022 End: 03-11-[address] GARLAND TEMPLE Facility:[facility] Start: 02-19-2022 End: 02-20-2022 ambulatory LEVY BRAND Facility:[facility] Start: 11-13-2021 End: 11-13-2021 ambulatory Alex Horton Other [facility] Other Start: 11-13-2021 Telephone encounter Alex RAMIRES [facility] Start: 10-28-2021 End: 10-28-2021 ambulatory Alex Horton Other [facility] Other Start: 10-28-2021 Telephone encounter Alex RAMIRES [facility] Start: 10-23-2021 End: 10-23-2021 ambulatory Alex Horton Other [facility] Other Start: 10-23-2021 Telephone encounter Alex RAMIRES [facility] Start: 10-14-2021 End: 10-14-2021 ambulatory Alex Horton Other [facility] Other Start: 10-14-2021 Office outpatient vi sit 25 minutes Alex Horton [facility] Start: 09-23-2021 End: 09-23-2021 ambulatory Alex Horton Other [facility] Other Start: 09-23-2021 Office outpatient vi sit 15 minutes Alex Horton [facility] Procedures Date Procedure Procedure Detail Performing Clinician Start: 06-03-2023 Duplex scan of lower limb veins Start: 02-23-2023 X-ray of left knee Start: 09-13-2018 Screening for malignant neoplasm of cervix Farzana Ramos Other Start: 04-10-2015 Screening mammography Farzana Ramos Other Start: 05-16-2014 History and 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, administrative Farzana Ramos Other History of operative procedure on knee S/P arthroscopic knee surgery MD Farzana Ramos Work Phone: Screening for malign ant neoplasm of breast Farzana Ramos Other Plan of Treatment Date Care Activity Detail Author Start: 09-24-2022 Bacteria identified in Urine by Culture Urine Culture [facility] Immunizations Immunization Date Immunization Notes Care Provider Fa cility 07-23-2022 Prevnar 20 Farzana Ramos Other [facility] Other 03-22-2022 COVID-19 Vaccine Moderna - Documentation Purposes Only Farzana Ramos Other [facility] Other 03-22-2022 influenza virus vaccine, split virus (incl. purified surface antigen) Farzana Ramos Other [facility] Other 06-05-2021 pneumococcal conjuga te vaccine, 13 valent Farzana Ramos Other [facility] Other 05-23-2021 Do not use COVID-19 Pfizer 2 dose Alex Horton Other [facility] 09-28-2020 COVID-19 mRNA, Comirnaty (Pfizer) MD Farzana Ramos Work Phone: [facility] 09-18-2020 Do not use COVID-19 Pfizer 2 dose Alex Sol Other [facility] Other 08-28-2020 Do not use COVID-19 Pfizer 2 dose Alex Sol Other [facility] 03-09-2018 influenza virus vaccine, split virus (incl. purified surface antigen) Farzana Ramos Other [facility] Other 02-29-2016 tetanus and diphther ia toxoids, adsorbed, preservative free, for adult use (5 Lf of tetanus toxoid and 2 Lf of diphtheria toxoid) Farzana Ramos Other [facility] Other 04-09-2015 tetanus and diphther ia toxoids, adsorbed, preservative free, for adult use (5 Lf of tetanus toxoid and 2 Lf of diphtheria toxoid) Farzana Ramos Other [facility] Other Payers Date Payer Category Payer Unknown [id number] 2020 Unknown [id number] 1955 Unknown [id number] 2.16.84 [id number] 1956 Unknown [id number] 2.16.84 [id number] 1956 Unknown [id number] .16.84 [id number] 1956 Unknown [id number] .16.84 [id number] 1956 Unknown [id number] 2.16.84 [id number] 1956 Unknown [id number] 2.16.84 [id number] 1956 Unknown [id number] 2.16.8 [id number] Self-pay Self Pay [id number] Social History Date Type Detail Facility Unknown if ever smoked [facility] Other Sex Assigned At Sex Assigned At Bir th [facility] Other Start: 10-22-2021 End: 10-22-2021 Tobacco smoking status NHIS Never smoked tobacco (finding) [facility] Start: 1955 Sex Assigned At Female [facility] Clinical Notes 09-23-2021 to 06-03-2023 Note Date & Type Note Facility 06-03-2023 Evaluation note Encounter Date Diagnosis Assessment Notes May, Asymptomatic varicose veins of both lower extremities (ICD-10 - I83.93) We reviewed her full functional duplex studies which in fact does show greater than 5-second reflux of bilateral GSV and saphenofemoral junction. Bilateral GSV however are not significantly dilated and of normal size. She does have additional secondary varicosities bilaterally however again not significantly dilated. Her right ankle edema was her main concern and by use of graded compression stockings the symptoms have become controlled. She denies any additional symptoms of venous disease. At this juncture, I would recommend continued conservative management of her venous disease. We discussed venous disease at length and all her questions were addressed. She understands the importance of conservative therapy efforts with use of graded compression stockings, leg elevation, good skin care moisturizer therapy, weight management, and frequent activity in the overall management of her chronic venous disease. She understands the chronic and progressive nature of venous disease in general and the importance of these conservative therapy efforts. We will continue to follow her along as needed going forward, she knows to call us with any issues or concerns along the way. She knows to call us with any worsening or additional symptoms. May, Edema of right ankle (ICD-10 - M25.471) [facility] Other 12-06-2023 Evaluation note* Encounter Date Diagnosis Assessment Notes Treatment Notes Treatment Clinical Notes May, Lumbar radiculopathy (ICD-10 - M54.16) [facility] Other 11-21-2023 Evaluation note* Encounter Date Diagnosis Assessment Notes Treatment Notes Treatment Clinical Notes Apr, Lumbar pain (ICD-10 - M54.50) Continue followup w chiropractor in 1 hr. XR order given. Discussed potential referral to pain management if needed. Will call w update. Taking motrin tid for pain. [facility] Other 11-15-2023 Evaluation note* Encounter Date Diagnosis Assessment Notes Treatment Notes Treatment Clinical Notes Apr, Right leg swelling (ICD-10 - M79.89) This patient is complaining of unilateral leg swelling. She really does not have very many symptoms of varicose veins. However I do suggest we obtain a right lower extremity comprehensive venous duplex evaluation to rule out any valvular incompetence and/or venous insufficiency which may be contributing to her symptoms of swelling. I am aware that she recently had a venous duplex which was negative for DVT, however they did not check the valve status. We will reorder this evaluation as I do believe it is very pertinent to her diagnosis and care. The meantime the patient can help herself by weight loss and compression therapy. We will see her back in a few weeks to go over the results. [facility] Other 10-26-2023 Evaluation note* Encounter Date Diagnosis Assessment Notes Treatment Notes Treatment Clinical Notes Mar, Anxiety, generalized (ICD-10 - F41.1) Skin exam normal. Suspect her anxiety is causing the itching sensation. Discussed medication and counseling. Followup in 1 month. [facility] Other 10-13-2023 Evaluation note* Encounter Date Diagnosis Assessment Notes Treatment Notes Treatment Clinical Notes Mar, Right ankle swelling (ICD-10 - M25.471) Discussed importance to r/o DVT. Consider referral based on US results. [facility] Other 09-27-2023 Evaluation note* Encounter Date Diagnosis Assessment Notes Treatment Notes Treatment Clinical Notes Feb, Essential hypertension (ICD-10 - I10) Discussed low bp today and how this can be linked to her symptoms of lightheadedness. Will hold chlorthalidone. Check bp daily. Call with readings. Followup in 1 month. [facility] Other 06-09-2023 Evaluation note* Encounter Date Diagnosis Assessment Notes Treatment Notes Treatment Clinical Notes Nov, Pruritus (ICD-10 - L29.9) Med could relieve itching and help her sleep Nov, Situational anxiety (ICD-10 - F41.8) Discussed medications and stress relief. Continue present chronic medications. [facility] Other 04-12-2023 Evaluation note* Encounter Date Diagnosis Assessment Notes Treatment Notes Treatment Clinical Notes Sep, Dysuria (ICD-10 - R30.0) [facility] Other 01-23-2023 Evaluation note* Encounter Date Diagnosis Assessment Notes Treatment Notes Treatment Clinical Notes Jun, Allergic cough (ICD-10 - R05.8) Discussed symptom management with Coricidin and Claritin. Call if fevers or shortness of breath occurs. Discussed masking at work for her own wellness as well as her coworkers and customers. [facility] Other 01-17-2023 NotePatient here for 4 mo follow up hypertension and hyperlipidemia. Dr. Temple increased her lisinopril to 40mg daily at last apt in Feb 2022. He also switched hydrochlorothiazide to chlorthalidone. She had labs 03/10/2022. Denies chest pain and SOB. Doing well from cardiac standpoint. Thinks she has neuropathy and will call her PCP for an apt soon. Review of Systems Musculoskeletal: Positive for arthritis and joint pain. Neurological: Positive for light-headedness. All other systems reviewed and are negative.[facility] 07[facility] NoteCardiology Clinic Note Subjective Pebbles Johnson is a 67 y.o. year old female patient with hypertension and hyperlipidemia seen in follow-up. Last seen by Dr. Cartagena in 02/2022 for BP management. BP is well controlled with medication changes, she reports dizziness with bending but otherwise doing well from a cardiac standpoint. Patient Active Problem List Diagnosis Abnormal results of cardiovascular function studies Bipolar disorder (CMS/HCC) Diaphragmatic hernia Dyspnea Essential hypertension Hyperlipidemia Irritable bowel syndrome No family history on file. Social History Tobacco Use Smoking status: Never Smokeless tobacco: Never Substance Use Topics Alcohol use: Yes Comment: occasional Review of Systems Constitutional: Positive for decreased appetite. Cardiovascular: Negative for chest pain, claudication, dyspnea on exertion, irregular heartbeat, leg swelling, near-syncope, orthopnea, palpitations, paroxysmal nocturnal dyspnea and syncope. Musculoskeletal: Positive for joint pain. Neurological: Positive for dizziness. All other systems reviewed and are negative. Objective Visit Vitals BP 117/59 (BP Location: Left arm, Patient Position: Sitting) Pulse 72 Ht 1.499 m (4' 11 ) Wt 75.8 kg (167 lb) SpO2 99% BMI 33.73 kg/m??? Smoking Status Never BSA 1.78 m??? Physical Exam General: Awake, alert, good spirits. NAD Eyes: anicteric sclera. Non-injected conjunctiva. No xanthelasmas Neck: No elevated JVP. No carotid bruit Pulm: Breath sounds clear to ascultation bilaterally with no wheeze, crackles or rhonchi Cards: Regular rate and rhythm, S1, S2. No S3 or S4 gallop. Murmur: none Abd: Soft, Nontender, physiologic bowel sounds are present Extr: Lower extremity edema: None. DP pulses:2+ Skin: warm, dry, well perfused Neuro: A&Ox3, No gross deficits Allergies Allergies Allergen Reactions Sulfa (Sulfonamide Antibiotics) Other Medications Current Outpatient Medications: aspirin 81 mg EC tablet, in the morning., Disp: , Rfl: carvedilol (Coreg) 25 mg tablet, Take 1 tablet (25 mg) by mouth with breakfast and with evening meal., Disp: 180 tablet, Rfl: 3 chlorthalidone (Hygroton) 25 mg tablet, Take 25 mg by mouth in the morning., Disp: , Rfl: lisinopril 40 mg tablet, Take 40 mg by mouth in the morning., Disp: , Rfl: meloxicam (Mobic) 15 mg tablet, Take 15 mg by mouth in the morning., Disp: , Rfl: nitroglycerin (Nitrostat) 0.4 mg SL tablet, nitroglycerin 0.[address] 1 tablet as needed by sublingual route for 30 days., Disp: , Rfl: pantoprazole (ProtoNix) 40 mg EC tablet, pantoprazole 40 mg tablet,delayed release TAKE 1 TABLET BY MOUTH EVERY DAY, Disp: , Rfl: rosuvastatin (Crestor) 40 mg tablet, Take 1 tablet by mouth daily in the evening, Disp: 30 tablet, Rfl: 11 Recent Labs 02/20/2022 Hemoglobin: 12.7; hematocrit 37.9; sodium 138, potassium 4.3, BUN 15, serum creatinine 0.8, ALT 21, AST 14, total cholesterol 241, HDL 51, triglycerides 281, LDL of 133.8. Imaging and other tests Echo: 06/2019 Global left ventricular systolic function is hyperdynamic (Visually estimated EF 75%). The left ventricle is normal size. No regional wall motion abnormality. Grade 1, mild diastolic dysfunction (abnormal relaxation). Normal right ventricular systolic function. The right ventricle is normal in size. Doppler studies suggest normal right sided pressures. No valvular stenosis or significant insufficiency. Assessment Diagnoses and all orders for this visit: Mixed hyperlipidemia - Lipid panel; Future Essential hypertension Dyspnea on exertion Plan 1 mixed hyperlipidemia -Reports rosuvastatin was increased following last blood draw. We will recheck fasting lipid panel. If poorly controlled, plan to add ezetimibe. 2. Essential hypertension -Well-controlled on carvedilol 25 mg twice daily, lisinopril 40 mg daily, chlorthalidone 25 mg daily. Continue current medication regiment Follow up in about 6 months (around 12/29/2022). Arcadio Priest APRN-PHYLICIA [facility]* Encounter Date Diagnosis Assessment Notes Treatment Notes Treatment Clinical Notes Mar, Primary osteoarthritis of left knee (ICD-10 - M17.12) Mar, Other tear of medial meniscus of left knee as current injury, subsequent encounter (ICD-10 - S83.242D) Doing well no issues Mar, Other specified postprocedural states (ICD-10 - Z98.890) Mar, Lumbar radiculopathy (ICD-10 - M54.16) Pebbles is a patient known to me from prior left knee issues she is presents today with a left lumbar radiculopathy. Her physical exam and x-rays have been reviewed with her at bedside. At this time we will treat this conservatively and I have prescribed the listed medications in order to treat this. We will also get her started in physical therapy for back stretching core strengthening exercises. Would not recommend chiropractor use at this time. I will plan to see her back in 6 weeks to see how she is progressing. She continues to have issues we will get an MRI of the lumbar spine [facility] Other 10-18-2022 NotePROCEDURE: XR HIP LT 2 3V W PELVIS HISTORY: Left side sciatica ; low back and left hip pain for 2 weeks COMPARISON: None. FINDINGS: BONES:No fracture, acute abnormality, or significant arthropathy. SOFT TISSUES:No visible soft tissue swelling. EFFUSION:None visible. OTHER: Negative. IMPRESSION: 1. No acute bone abnormality or significant degenerative joint disease. Electronically authenticated by: VICTOR HUGO CESAR Date: 2022-04-01 06:49[facility]06-01-2022 Evaluation note* Encounter Date Diagnosis Assessment Notes Treatment Notes Treatment Clinical Notes Nov, Other specified postprocedural states (ICD-10 - Z98.890) [facility] Other 05-16-2022 Evaluation note* Encounter Date Diagnosis Assessment Notes Treatment Notes Treatment Clinical Notes October, Primary osteoarthritis of left knee (ICD-10 - M17.12) [facility] Other 05-02-2022 Evaluation note* Encounter Date Diagnosis Assessment Notes Treatment Notes Treatment Clinical Notes October, Acute pain of left knee (ICD-10 - M25.562) Annia is here today for MRI review of the left knee. We have discussed this and images have been reviewed. There is medial compartment arthrosis appreciated along with a medial meniscus tear. We have discussed these in particular in regards to ongoing pain after surgery which could represent knee DJD which we will treat in the future. She verbalizes understanding of this. At this juncture we have discussed the findings and diagnosis as well as reviewed appropriate imaging and performed interpretation of testing. Surgical intervention is recommended. Prior medical notes and history have been reviewed. Surgical versus non-operative management have been discussed in detail and non-operative management was given as an option. The risks of surgical intervention were given. Pre-operative optimization will be done prior to surgical procedure to limit juan c-operative risks. I have discussed the planned procedure, how and who performs the procedure, and the personnel involved. Cardiovascular, pulmonary, and other life threatening episodes can occur during surgery although there is a low risk of these happening. Surgical risks including bleeding, neurovascular injury, wound closure problems and infection were discussed. Juan C-operative risks including infection, bleeding, wound healing problems, and need for further surgery were discussed. It was discussed that there is a possibility of blood transfusion with any surgical procedure and the risks involved in receiving a blood transfusion. Possibility of, and need for, future bracing or DME use, physical or occupational therapy, mental therapy, rehabilitation, pain management and need for secondary procedures was discussed. I have warned against smoking and the use of tobacco products due to the risks associated with them, in particular, poor healing. 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 I have advised to follow all post-operative instructions in order to obtain the best outcome. Informed consent has been verbally affirmed and signed as indicated. We will plan on left knee arthroscopy. Follow-up 1 week after surgery. October, Acute medial meniscus tear of left knee, initial encounter (ICD-10 - S83.242A) October, Primary osteoarthritis of left knee (ICD-10 - M17.12) Today we have discussed degenerative joint disease of the knee and its treatment. Imaging was explained and reviewed with the patient. We discussed recommended conservative therapies including physical therapy, anti-inflammatory medications, and weight loss strategies. We also discussed other treatment options including cortisone injections, Visco supplementation injections which I cannot recommend but are options for treatment. I have laid out the course of knee DJD including the end-stage treatment of total joint arthroplasty. The patient recognizes and understands our options and goals and we will move forward with our treatment. Continue meloxicam at this time. Voltaren as needed. We will attempt to obtain an MRI of the knee and she may follow-up after this for further treatment options. [facility] Other 04-11-2022 Evaluation note* Encounter Date Diagnosis Assessment Notes Treatment Notes Treatment Clinical Notes Sep, Acute pain of left knee (ICD-10 - M25.562) With the patient's ongoing symptoms and failure conservative treatment, including NSAIDs cortisone injections and HEP, and overall benign appearance of her x-rays I would proceed with an MRI of the knee at this time to evaluate for internal derangement or meniscal pathology. She may follow-up after MRI I am concerned about a potential meniscal tear that will not improve with conservative and non-operative treatments. Continued active use of the knee can lead to worsening of the condition and lead to irreversible damage to the knee. An MRI of the knee will be necessary to identify the source of pain and plan potential surgical treatment. Patient given MRI information sheet Sep, Primary osteoarthritis of left knee (ICD-10 - M17.12) Today we have discussed degenerative joint disease of the knee and its treatment. Imaging was explained and reviewed with the patient. We discussed recommended conservative therapies including physical therapy, anti-inflammatory medications, and weight loss strategies. We also discussed other treatment options including cortisone injections, Visco supplementation injections which I cannot recommend but are options for treatment. I have laid out the course of knee DJD including the end-stage treatment of total joint arthroplasty. The patient recognizes and understands our options and goals and we will move forward with our treatment. Continue meloxicam at this time. Voltaren as needed. We will attempt to obtain an MRI of the knee and she may follow-up after this for further treatment options. [employer] Other Evaluation noteNo InformationNort Dashride Other Evaluation noteNo assessment information available [facility] Work Phone: History general Narrative - Reported* Type Description Date Medical History Benign essential HTN Medical History Hypercholesterolemia Surgical History colonoscopy Surgical History partial hysterectomy Hospitalization History see above [facility] Other History general Narrative - Reported* Type Description Date Medical History Benign essential HTN Medical History Hypercholesterolemia Medical History Dyslipidemia Medical History COVID Medical History Fatigue Medical History Left otitis media with effusion Medical History Sciatica, left side Medical History Menopause Medical History Hip pain, left Medical History Edema of both lower extremities Medical History Balance disorder Medical History Hypokalemia Medical History Impacted cerumen of left ear Medical History Osteoarthritis of left knee Medical History Essential hypertension Medical History Insomnia, persistent Medical History Situational anxiety Medical History Cellulitis of right breast Surgical History colonoscopy Surgical History partial hysterectomy Surgical History Left knee surgery 10/2021 Hospitalization History see above [place] [facility] Other Reason for visit NarrativeLOWER BACK - REFERRAL FOR [facility] Dashride Other Summary Purpose Family History Relationship Condition Age at Onset Recorded Date/T elizabeth Not Specified Malignant neoplasm of kidney Unknown father Pulmonary emphysema Unknown brother Chronic obstructive pulmonary disease Unk nown Advance Directives Advance Directive Response Recorded Date/ Time Advance Directives No July 08, 2020 7:33pm Advance Directive Response Recorded Date/ Time Advance Directives No July 08, 2020 6:33pm Reason for Referral Reason lumbar pain Diagnosis 1 Lumbar radiculopathy (M54.16) Referral Organization [facility] [employer] [facility] kavin Referring Provider First Name Farzana Referring Provider Last Name Richard Referring Provider Specialty [facility] Referred Organization [facility] Referred Address [address], [place],[address] Referred Provider Specialty Pain Medicin e Referral Priority Routine Reason *Waiting for appt swelling and varicosities Diagnosis 1 Right ankle swelling (M25.471) Referral Organization [facility] kavin Referring Provider First Name Farzana Referring Provider Last Name Richard Referring Provider Specialty [facility] Referred Organization [facility] V[facility] Surge ry Referred Provider Gucci Meyers Referred Address [address],[address] Referred Provider Specialty Vascular Navjot soledad Referral Priority Routine General Notes Yuridia Garcia 12:53:57 PM >received today, faxed P2P Chief Complaint and Reason for Visit Chief Complaint i83.813 Additional Source Comments REASON FOR VISIT (unrecogniz ed section and content) Recheck Left KneeReview MRI Resultssurgery questionsrxpain medRecheck Left KneeCOUGH, RUNNY NOSEUA-Frequency- Stomach Painurine cultureAnxiety/Nervesrefilldizzy lightheadedmessageswollen anklesUS legOn-Going IssuesNo InformationReferred by Dr. Farzana Ramos for swelling and varicositiesVascular surgery office note4 week follow up; To go over FF results; B/L FF legs at 8:00amlumbar xr INFORMATION SOURCE (unrecogn ized section and content) DATE CREATED AUTHOR 07/02/2022 [facility] DATE CREATED AUTHOR AUTHOR'S ORGANIZ ATION 09/30/2022 [facility] DATE CREATED AUTHOR AUTHOR'S ORGANIZ ATION 03/24/2023 Luis Alexus [facility] DATE CREATED AUTHOR AUTHOR'S ORGANIZ ATION 06/04/2023 [facility] Care Teams (unrecognized sec tion and content) Team Status: Inactive Member Role Status Dates Farzana Ramos MD Attending Provider Active Team Status: Active Member Role Status Dates NON STAFF Primary Care Provider Active Team Status: Inactive Member Role Status Dates NON STAFF Primary Care Provider Active Alex Horton DO Attending Provider Active Team Status: Inactive Member Role Status Dates NON STAFF Primary Care Provider Active Gucci Meyers MD Attending Provider Active Goals (unrecognized section and content) Goals may be documented in a n alternate section FOR RECORDS PERTAINING TO PATIENTS WHO ARE OR HAVE BEEN ENROLLED IN A CHEMICAL DEPENDENCY/SUBSTANCEABUSE PROGRAM, SOME INFORMATION MAY BE OMITTED. This clinical summary was aggregated from multiple sources. Caution should be exercised in using it in the provision of clinical care. This summary normalizes information from multiple sources, and as a consequence, information in this document may materially change the coding, format and clinical context of patient data. In addition, data may be omitted in some cases. CLINICAL DECISIONS SHOULD BE BASED ON THE PRIMARY CLINICAL RECORDS. [employer] provides no warranty or guarantee of the accuracy or completeness of information in this document.
--- NOTE | 2023-06-24 08:57 | PM.CN ---
Consult Note: HPI Data of Consult Patient: new to practice Consult date: 06/24/23 Requesting Physician: Sara Cobb NP Primary Care Provider: Farzana Aldana MD Consult Narrative Reason for consult: establish for low back pain Narrative: Adelita Johnson a pleasant 68 year old female presents for chronic low back pain, worsening over the last month. Has been following with PCP and chiropractor for chronic low back pain, today pain 0/10 however increased pain with activity standing and walking. Pain does increase to 8/10 Denies numbness, tingling, weakness. finds benefit to tylenol arthritis PRN. Patient has not completed PT at this time, over the summer she is active in water therapy. Patient notices the most pain throughout her work day and with standing for periods of time. Patient would like to discuss options for her chronic low back pain. cc:: CC: Sara Cobb NP Review of Systems ROS Status of ROS 10 or more systems reviewed and unremarkable except as noted in history and below Musculoskeletal Reports: back pain Meds Home Medications and Allergies Home Medications Medication Instructions Recorded Confirmed Type carvedilol 25 mg tablet mg 12/29/22 History chlorthalidone 25 mg tablet mg 12/29/22 History hydroxyzine HCl 10 mg tablet mg 12/29/22 History lisinopril 40 mg tablet mg 12/29/22 History methylprednisolone 4 mg tablets in mg 12/29/22 History a dose pack pantoprazole 40 mg tablet,delayed mg PO 12/29/22 History release rosuvastatin 40 mg tablet mg 12/29/22 History Allergies Allergy/AdvReac Type Severity Reaction Status Date / Time Sulfa (Sulfonamide Allergy Mild Rash Verified 12/29/22 04:17 Antibiotics) Exam Constitutional Documenting provider has reviewed patient's vital signs: yes Common normals: no apparent distress, oriented x3, healthy appearing, alert and well nourished General appearance: cooperative HENMT Common normals: normocephalic, hearing grossly normal bilaterally and moist oral mucous membranes Head and scalp: normocephalic Eye Common normals: PERRL Pupil: PERRL Neck & C-Spine Common normals: full ROM General: normal visual inspection Chest Common normals: inspection of chest normal Respiratory Common normals: normal respiratory effort, no retractions and no use of accessory muscles Back & Pelvis Lumbar spine/lower back: ROM limited, pain with ROM and straight leg raise negative bilaterally Sacroiliac joints: SI joint(s) abnormal Other: bilateral facet pain pain worst over l4-5 l5-s1 no radiculopathy positive facet loading bilateral positive fabers/fadirs, thigh thrust, gaenslens and tenderness over bilateral PSIS Extremity Common normals: normal to inspection and full ROM Neuro Common normals: oriented x3, CN's II-XII intact bilaterally, moves all extremities, no focal motor deficits, no sensory deficits noted and deep tendon reflexes 2+ bilaterally Sensorium/orientation: alert Motor exam: strength 5/5 throughout and no movement abnormalities noted Psych Common normals: mental status grossly normal, thought process normal, cooperative, affect normal, speech normal and activity/motor behavior normal Speech: normal speech Thought process: normal thought process Results Additional Findings Additional findings: I have checked an [place] report on this patient today and there are no aberrancies noted in the prescribing history.?? A drug screen was completed and reviewed within the last year, and if there has not been a drug screen completed we ordered one today to monitor higher risk, state monitored pain medication use. As part of providing excellent, safe, comprehensive care, the following was completed at our patient's visit: 1. A medication reconciliation and review to ensure accurate knowledge of current/active medications, including asking our patients to inform us about any [id number] medications or herbal remedies/nutritional supplements/alternative remedies. 2. A review to specifically ensure our patients have had annual screening for: elevated body mass index (BMI), tobacco use, screening for depression, and screening for unhealthy alcohol use. When screening is concerning, patients are provided with education and the specific recommendation to discuss the concerning health issue and treatment options with their primary care provider. 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 education provided on facet blocks and thermal RFA at bilateral l4-5 L5-S1 for chronic low back pain and lumbar spondylosis
== END 2023-06-24 08:34 | disposition home or self-care (01) ==
LOC: PM 08:34
PROVIDERS: PCP Family Medicine; Visit Provider Nurse Practitioner
DX: M47.816 Spondylosis without myelopathy or radiculopathy, lumbar region (principal); M46.1 Sacroiliitis, not elsewhere classified; M54.50 Low back pain, unspecified
CPT/HCPCS: G0463

== ENCOUNTER 2023-08-07 18:19 | Emergency (ER) | payer OTHER, SELFPAY ==
[2023-08-07 18:20] VITALS: BP 176/90; PULSE 74; RESP 18; TEMP 37.1; O2SAT 97; BMI 35.6
--- OUTSIDE RECORDS SUMMARY | 2023-08-07 18:25 | XMS_ITS | CCD ---
Author Name Unknown Address [address] [place] [address] Organization [facility] Care Team Providers Care Mill Dresser Name Role Phone Alex Horton Unavailable YUVAL PRIEST Attending Unavailable Jeffy Ramos Unavailable MD Jeffy Ramos Attending Provider [phone] RICHARD, DR JEFFY Smith Admitting Unavailable RAMOS, DR JEFFY Smith Attending Unavailable RAMOS, DR JEFFY Smith Primary Care Unavailable ZIEBSHIRLEY, DR KIRK Burton Consulting Unavailable RAMOS, DR JEFFY Smith Consulting Unavailable MISC, DR MCLAUGHLIN Admitting Unavailable MISC, DR MCLAUGHLIN Attending Unavailable RAMOS, DR JEFFY Smith Primary Care Unavailable MISC, DR MCLAUGHLIN Consulting Unavailable RAMOS, DR JEFFY Smith Admitting Unavailable RAMOS, DR JEFFY Smith Attending Unavailable RAMOS, DR JEFFY Smith Primary Care Unavailable CRISTOBALEBSHIRLEY, DR KIRK Burton Consulting Unavailable RAMOS, DR JEFFY Smith Consulting Unavailable RAMOS, DR JEFFY Smith Primary Care Unavailable TUNG, DR JANN Burton Consulting Unavailable TUNG, DR JANN Burton Admitting Unavailable TUNG, DR JANN Burton Attending Unavailable RO BONILLA Consulting Unavailable SUNDAY, LEVY Admitting Unavailable SUNDAYLEVY Attending Unavailable RAMOS, DR JEFFY Smith Primary Care Unavailable SUNDAY, LEVY Consulting Unavailable ELTAHAWRichard, DR HAQUE Admitting Unavailable ELTAHAWY, DR HAQUE Attending Unavailable RAMOS, DR JEFFY Smith Primary Care Unavailable WINDY, DR HAQUE Consulting Unavailable NON STAFF Primary Care Provider UnavailDO Alex Key Attending Provider Gucci Meyers Unavailable Marine Watson Unavailable NON STAFF Primary Care Provider UnavailMD Gucci Christine Attending Provider Jeffy Ramos Admitting Unavailable Jeffy Ramos Attending Unavailable NON STAFF Primary Care Unavailable Gucci Meyers Admitting UnavailGucci Christine Attending UnavailAlex Key Admitting Unavailable Alex Horton Attending Unavailable NON STAFF Primary Care Unavailable JEFFY RAMOS Primary Care Physician [phone] Lissa Prather Unavailable Jean Paul URBAN Referring Unavailable Jean Paul URBAN Attending Unavailable Jean Paul URBAN Attending Unavailable Jean Paul URBAN Admitting Unavailable Jean Paul URBAN R Referring Unavailable Jean Paul URBAN Attending Unavailable Allergies Allergy Classification Reported Allergen(s) Allergy Type Date of Onset Reaction(s) Facility (17 sources) Sulf-10 Drug allergy Unknown [facility] Other (4 sources) Sulfonamides (Antibiotic); Translations: [SULFA (SULFONAMIDE ANTIBIOTICS)] Propensity to adverse reactions to drug (disorder) 06-02-20 14 [facility] Repository (3 sources) steriod Propensity to adverse reactions 10-17-19 22 Redness of Skin [facility] (1 source) Sulfonamides (Antibiotic) Drug allergy (disorder) 01-10-20 13 [facility] Repository (7 sources) HMG-CoA reductase inhibitor Drug allergy 08-27-19 14 Unknown [facility] Other (12 sources) Penicillin Drug Allergy 07-11-19 17 Unknown [facility] Other (3 sources) Allergies Reconciled Propensity to adverse reactions 04-30-20 21 Unknown [facility] Other (13 sources) Substance with sulfonamide structure and antibacterial mechanism of action (substance) Drug allergy 10-19-19 19 Unknown [facility] Other (3 sources) patient allergy list reviewed by nurse or physicia Propensity to adverse reactions 11-11-19 19 Comment:Done [facility] Other (7 sources) Statins Depletion *DIETARY PRODUCTS/DIETARY MANAGE Propensity to adverse reactions Unknown [facility] Other (3 sources) Sulfamethoxazole; Translations: [sulfamethoxazole ] Drug Allergy .... [facility] Medications Current Medications Medication Drug Class(es) Dates Sig (Normalized) Sig (Original) Aspir-81 (20 sources) Aspir-81 Active aspirin 81 mg oral tablet (2 sources) Platelet Aggregation Inhibitor, Nonsteroidal Anti-inflammatory Drug Start: 10-23-19 17 take 1 tablet by mouth once daily aspirin 81 mg oral tablet 81 mg = 1 tab(s), Oral, Daily, Refills(s) 0, Prophylaxis Start Date: 10/22/16 Status: Ordered carvedilol 25 mg oral tablet (20 sources) alpha-Adrenergic Kalpana, beta-Adrenergic Kalpana Start: 10-17-19 22 carvedilol 25 mg Tab Refills(s) 0 Start Date: 06/29/23 Status: Ordered escitalopram 10 mg oral tablet (10 sources) Serotonin Reuptake Inhibitor Start: 04-09-20 23 escitalopram 10 mg Tab Refills(s) 0 Start Date: 06/29/23 Status: Ordered hydroCHLOROthiazide 25 mg oral tablet (12 sources) Thiazide Diuretic Start: 10-17-19 22 take 25 mg by mouth once daily in the morning Hydrochlorothiazide Active 25 MG PO Every morning October 15, 2021 11:00pm hydrOXYzine hydrochloride 10 mg oral tablet (14 sources) Antihistamine Start: 11-22-19 23 take 1 tablet by mouth once daily at bedtime as needed hydrOXYzine HCl 10 MG 1 tablet at bedtime as needed Orally qhs prn for 30 days Nov, Active Lisinopril (20 sources) Angiotensin Converting Enzyme Inhibitor Start: 03-12-20 20 lisinopril Oral, Daily, Refills(s) 0 Start Date: 03/12/20 Status: Ordered take 1 tablet by nazario th every twenty-four hours Lisinopril 40 MG 1 [...] October 15, 2021 11:00pm Nitro Sublingual 0.4 (6 sources) Nitro Sublingual 0.4 Active nitroglycerin 0.4 mg sublingual tablet (2 sources) Nitrate Vasodilator Start: 06-29-2023 nitroglycerin 0.4 mg sublingual Tab 0.4 mg = 1 tab(s), SubLingual, q5min, PRN for chest pain, # 100 tab(s), Refills(s) 0 Start Date: 06/29/23 Status: Ordered pantoprazole 40 mg delayed release oral tablet (20 sources) Proton Pump Inhibitor Start: 10-16-2021 take 1 mg by mouth once daily Pantoprazole [address] Tab mg tab(s), Oral, Daily, Refills(s) 0 Start Date: 06/29/23 Status: Ordered rosuvastatin calcium 40 mg oral tablet (20 sources) HMG-CoA Reductase Inhibitor Start: 06-29-2023 take 1 mg by mouth once daily rosuvastatin 40 mg Tab mg tab(s), Oral, Daily, Refills(s) 0 Start Date: 06/29/23 Status: Ordered Start: 10-16-2021 take 20 mg by mouth once daily at bedtime Rosuvastatin Active 20 MG PO Daily at bedtime October 15, 2021 11:00pm take 1 tablet by nazario th every other day Rosuvastatin Calcium 40 MG 1 tablet Orally qod for 100 days Active Completed/Discontinued Medications Medication Drug Class(es) Dates Sig [...] tablet Active 1 TAB PO Q4H 30 7 October 22, 2021 Amoxicillin-Pot Clavulanate (1 source) Amoxicillin-Pot Clavulanate Not-Taking cefdinir 300 mg oral capsule (17 sources) Cephalosporin Antibacterial Cefdinir 300 MG as directed Orally Not-Taking/PRN chlorthalidone 25 mg oral tablet (17 sources) Thiazide-like Diuretic take 1 tablet by mouth every twenty-four hours Chlorthalidone 25 MG 1 tablet in the morning with food Orally Once a day Not-Taking/PRN ciprofloxacin 500 mg oral tablet (2 sources) Quinolone Antimicrobial Start: 2023 take 1 tablet by mouth once daily Cipro 500 mg Tab 500 mg = 1 tab(s), Oral, Daily, take one tab day before procedure and one tab after procedure, same day of procedure, # 2 tab(s), Refills(s) 0, Pharmacy: [id number], 150, cm, 06/29/23 11:34:00 EST, Height/Length Dosing, 79, kg, 06/29/23 11:34:00 EST, Weight Dosing Start Date: 06/29/23 Status: Ordered cyclobenzaprine hydrochloride 5 mg oral tablet (4 sources) Muscle Relaxant Start: 2021 take 1 tablet by mouth every eight hours at bedtime as needed Cyclobenzaprine HCl 5 MG 1 tablet at bedtime as needed Orally every 8 hours as needed for 7 days Mar, Not-Taking fluconazole 100 mg oral tablet (17 sources) Azole Antifungal Fluconazole 100 MG 1 tablet Orally Not-Taking/PRN methylPREDNISolone 4 mg oral tablet (4 sources) Corticosteroid Start: 2021 methylPREDNISolone 4 MG as directed Orally for 6 days Mar, Not-Taking Multi For Her - (9 sources) Multi For Her - as directed Orally Not-Taking Multi For Her - as directed Orally Active nystatin 334362 unt/ml topical cream (11 sources) Polyene Antifungal Nystatin 1000 00 UNIT/GM 1 application Externally Twice a day for 10 days Not-Taking/PRN Nystatin 015405 UNIT/GM 1 application Externally Twice a day for 10 days Active PEG 3350-KCl-Na Bicarb-NaCl (1 source) PEG 3350-KCl-Na Bicarb-NaCl Not-Taking traMADol hydrochloride 50 mg oral tablet (4 sources) Opioid Agonist Start: 04-02-2022 take 1 tablet by mouth every four to six hours as needed traMADol HCl 50 MG 1 tablet as needed Orally every 4-6 hours as needed for 7 days VANESSA # [id number] Mar, Not-Taking triamcinolone acetonide 40 mg/ml injectable suspension (12 sources) Corticosteroid Start: 02-23-2023 Kenalog-40 Feb, 40 [...] Onset: 03-10-2022 Chronic Fluid and electrolyte disorders (17 sources) Hypokalemia; Translations: [Hypokalemia] Episodic Genitourinary symptoms and ill-defined conditions (6 sources) Mixed incontinence; Translations: [Incontinence without sensory awareness] Onset: 06-29-2023 Chronic Genitourinary symptoms and ill-defined conditions (8 sources) Dysuria; Translations: [Dysuria] Onset: 03-06-2016 Episodic Immunizations and screening for infectious disease (3 sources) Vaccination given; Translations: [Encounter for immunization] Episodic Malaise and fatigue (20 sources) Fatigue; Translations: [Other fatigue] Episodic Mood disorders (2 sources) Depressive disorder 06-29-2023 Chronic Mycoses (6 sources) Candidiasis of skin and [...] Onset: 07-01-2022 Episodic Other nervous system disorders (20 sources) Abnormal gait; Translations: [Other abnormalities of [...] Onset: 09-24-2022 Episodic Other upper respiratory infections (12 sources) Acute pharyngitis, unspecified; Translations: [Acute laryngitis] Onset: 08-26-2013 Episodic Otitis media and related conditions (20 sources) Non-suppurative otitis media; Translations: [Unspecified nonsuppurative otitis media, left ear] Onset: 05-07-2022 Episodic Residual codes; unclassified (2 sources) Other specified postprocedural states Onset: 11-13-2021 Resolved: 11-13-2021 Episodic Residual codes; unclassified (17 sources) Edema; Translations: [Localized edema] Episodic Residual codes; unclassified (20 sources) Insomnia; Translations: [Insomnia, unspecified] Episodic Residual [...] [Asymptomatic menopausal state] Episodic Residual codes; unclassified (10 sources) Menopause present; Translations: [Asymptomatic menopausal state] Episodic Spondylosis; intervertebral disc disorders; other back problems (20 sources) Radiculopathy, lumbar region; Translations: [Left side sciatica] Onset: 03-31-2022 Episodic Unclassified (3 sources) Acute candidiasis of vulva and vagina; Translations: [Acute candidiasis of vulva and vagina] Unclassified (1 source) Unilateral primary osteoarthritis, left knee; Translations: [Unilateral primary osteoarthritis, left knee] Onset: 02-23-2023 Unclassified (2 sources) Asymptomatic microscopic hematuria 06-29-2023 Varicose veins of lower extremity (1 source) [...] sources) Melena; Translations: [Melena] Onset: 02-25-2018 Episodic Inflammatory diseases of female pelvic organs [...] Onset: 08-25-2016 Episodic Other aftercare (1 source) terminologist (current) use of aspirin; Translations: [CORRECTION CURRENT USE OF ASPIRIN] Onset: 05-07-2022 Episodic Other aftercare (1 source) Other halfway (current) drug therapy; Translations: [OTH CORRECTION CURRENT DRUG THERAPY] Onset: 05-07-2022 Episodic Other [...] R05.8 Unclassified (1 source) Lumbar pain M54.50 Unclassified (1 source) Contact with and (suspected) exposure to covid-19 Z20.822 Viral infection (20 sources) Disease caused by 2019-nCoV; Translations: [COVID-19] Results Test Name Value Interpretation Reference Range Facility Consent for Procedure/Surger yon 07-28-2023 Consent for Procedure/Surgery [id number]# 1.00TIFF [facility] Consent for Treatmenton 07-16 Consent for Treatment [id number] .00TIFF [facility] IntraOperative Documentson 0 07-28-2023 IntraOperative Documents [id number]# 1.00TIFF [facility] IntraOperative Documents [id number]# 1.00TIFF [facility] Main OR Intraoperative Recor don 07-28-2023 Main OR Intraoperative Record IntraOp Document Type FTURO Summary Primary Physician: Jean Paul URBAN MD Finalized Date/Time: 07/28/23 11:03:27 Pt. Name: PEBBLES JOHNSON Dioni/Sex: 1955 Female Med Rec #: [id number] Physician: Jean Paul URBAN MD Financial #: [id number] Pt. Type: O Room/Bed: / Admit/Disch: 07/28/23 08:21:27 - Institution: Case Times FTURO Entry 1 Patient Times In Room 07/28/23 10:50:00 Out Room 07/28/23 11:05:00 Procedure Times Start 07/28/23 10:54:00 Stop 07/28/23 11:01:00 Anesthesia Times Last Modified By: Juan C BLAKELY, JUANISOR, Genesis 07/28/23 11:01:52 Case Attendance FTURO Entry 1 Entry 2 Entry 3 Case Attendee Jean Paul URBAN MD RN, CNOR, Belg[place] PEÑA, Reina Hurtado Role Performed Surgeon - Primary Baggage Porter Head - Primary Scrub - Primary Time In 07/28/23 10:50:00 07/28/23 10:50:00 07/28/23 10:50:00 Time Out 07/28/23 11:05:00 07/28/23 11:05:00 07/28/23 11:05:00 Procedure CYSTOSCOPY LOCAL WITH CYSTOSCOPY LOCAL WITH CYSTOSCOPY LOCAL WITH URETHRAL DILATION(.) URETHRAL DILATION(.) URETHRAL DILATION(.) Comments Last Modified By: Juan C RN, CNOR, Juan C RN, CNOR, Juan C RN, JUANISOR, Genesis 07/28/23 Genesis 07/28/23 Genesis 07/28/23 11:01:55 11:01:55 11:01:55 Surgical Procedures FTURO Entry 1 Procedure Description Procedure CYSTOSCOPY LOCAL WITH Modifiers . URETHRAL DILATION Surgeon Description CYSTO UD Primary Procedure Yes Primary Surgeon Jean Paul URBAN MD Start 07/28/23 10:54:00 Stop 07/28/23 11:01:00 Anesthesia Type Local Surgical Service Urology Wound Class 2 - Clean-Contaminated Last Modified By: KAY Irizarry RN, Ruthann 07/28/23 11:01:44 General Case Data FTURO Pre-Care Text: Classifies surgical wound, implements aseptic technique, initiates traffic control Entry 1 Case Information OR URO 1 FT Case Level None Wound Class 2 - Clean-Contaminated Specialty Urology Preop Diagnosis MIXED INCONTINENCE, Postop Same As Preop No HEMATURIA Postop Diagnosis urethral [id number] Outcomes Met? Yes Last Modified By: KAY Irizarry RN, Ruthann 07/28/23 11:02:15 Post-Care Text: The patient is free from signs and symptoms of infection EU IntraOp - FTURO Pre-Care Text: Implements protective measures prior to operative or invasive procedure, confirms identity before the operative or invasive procedure, verifies operative procedure, surgical site, and laterality Entry 1 EU Perioperative Protocols Procedure(s) CYSTOSCOPY LOCAL WITH Patient Identity Birthday, ID Band URETHRAL DILATION(.) Verified (select at Check, Patient least 2): Participation Consents / H and P HandP, Surgery/Procedure Operative Site N/A Verified Consent Marking Verified Surgical Site Yes Laterality Verified n/a Verified Procedure Verified Yes Correct Patient Yes Position Verified Availability Equipment, Medication Time Out MARYAM BEAVERS, Jean Paul Burton, Verified (If Participants KAY Irizarry RN, Applicable) Belgica Hurtado CST, Reina Valencia Time Out Complete 07/28/23 10:52:00 Allergies Reviewed? Yes Allergies Reviewed Self/Patient With Body Position Frog Legged Prep Area perineal area Prep Agents Betadine Solution Skin. Condition Unable to Visualize Additional None Specimens Collected Vitals - EU Blood Pressure 194/80 Pulse 63 bpm Respirations 18 br/min SPO2 EBL 0 IandO - EU Total Intake 0 mL Total Output 0 mL Outcomes Met? Yes Last Modified By: KAY Irizarry RN, Ruthann 07/28/23 11:03:11 Post-Care Text: The patient is free from signs and symptoms of injury caused by extraneous objects Sign Out FTURO Entry 1 Before Patient Leaves OR Nurse verbally Yes Nurse verbally n/a confirms with the confirms with the team the name of team that the procedure(s) instrument, sponge, recorded and needle counts are correct (or N/A) Nurse verbally n/a Nurse verbally n/a confirms with the confirms with the team how the team whether there specimen is labeled are any equipment (including patient problems to be name), if applicable addressed Sign Out Complete 07/28/23 11:04:00 Last Modified By: KAY Irizarry RN, Ruthann 07/28/23 11:03:20 Case Comments Finalized By: KAY Irizarry RN, Ruthann Document Signatures Signed By: KAY Irizarry RN, Ruthann 07/28/23 11:03 Normal [facility] Main OR Preoperative Recordo n 07-28-2023 Main OR Preoperative Record Holding Area Document Type FTURO Summary Primary Physician: Jean Paul URBAN MD Finalized Date/Time: 07/28/23 10:57:37 Pt. Name: PEBBLES JOHNSON/Sex: 1955 Female Med Rec #: [id number] Physician: Jean Paul URBAN MD Financial #: [id number] Pt. Type: O Room/Bed: / Admit/Disch: 07/28/23 08:21:27 - Institution: Case Times Holding FTURO Pre-Care Text: Verifies consent for planned procedure, identifies individual values and wishes concerning care, includes family members in perioperative teaching Secures patient's records' belongings, and valuables, maintains patient's dignity and privacy, and maintains patient confidentiality Entry 1 In Holding 07/28/23 10:05:00 Outcomes Met? Yes Last Modified By: Starr Villa LPN 07/28/23 10:05:35 Post-Care Text: The patient participates in decisions affecting his or her perioperative plan of care The patient's right to privacy is maintained Surgery Checklist FTURO Entry 1 Patient Birthday, ID Band Procedure History and Physical Identification: Check, Patient Verification: Participation NPO after Midnight: No Personal Items: Glasses Limitations: up ad kobe Complaints of Pain: No Skin Integrity Intact, [place], Warm, & Dry Vitals - EU Blood Pressure 194/80 Pulse 63 bpm Respirations 18 br/min SPO2 99 % RN Reviewed Yes Last Modified By: KAY Irizarry RN, Ruthann 07/28/23 10:57:35 Finalized By: KAY Irizarry RN, Ruthann Document Signatures Signed By: Starr Villa LPN 07/28/23 10:24 Juan C BLAKELY, Genesis VILLANUEVA 07/28/23 10:57 Normal [facility] Operative Reporton Operative Report Patient: PEBBLES JOHNSON Age: 68 years Sex: Female : 1955 Associated Diagnoses: None Author: Jean Paul URBAN MD Procedure Operative Information Details: Date/ Time: 07/28/2023 11:05:00. Pre-Op Dx: Micro Hematuria - With Symptoms - R31.29, Incomplete Bladder Emptying - R39.14, Urethral Stricture - Other Unspecified - N35.9. Post-Op Dx: Same. Anesthesia Type: Local. Procedure: Local Cystoscopy with Urethral Dilation. Complications: None. Risks/Benefits/Inform ed Consent: Surgical risks, benefits, details of the procedure have been explained to the patient, Full informed consent has been obtained. Intraoperative Information Prepped: Patient is brought back to the endoscopy suite, Patient is placed in modified dorso/lithotomy position, Patient prepped in the usual fashion with Betadine solution, 2% Xylocaine Jelly is placed per Urethra, After waiting several minutes the Cystoscope is introduced. The Urethra is: Tight. The Bladder is: Trabeculated (No bladder tumors. No CHAY. Posterior laxity. No true prolapse., Moderate atrophic vaginitis). The ureteral orifices: Show efflux of clear urine. The Urethra was dilated to: 30 Czech w/ sounds. Devices Implanted: None. Removal: Cystoscope is removed, The patient tolerated it well. Postoperative Information Discharge: Patient is discharged home with antibiotic coverage, Follow up arranged. Normal [facility] Comment on above: Result Comment: Elec tronically Signed By: Jean Paul URBAN MD\.br\Date and Time Signed: 07/28/23 11:10 EST COVID + FLU Quick Testingon 07-18-2023 SARS-CoV-2 (COVID-19) RNA ALEXA+probe Ql (Unsp spec) Negative [facility] Other COVID + FLU Quick Testing Negative [facility] Other [facility] 06-30-2023 Forms [id number] .00TIFF Normal [facility] Screenson 06-30-2023 Screens [id number]# 1.00TIFF Normal [facility] Ambulatory Visit Summaryon 0 06-29-2023 Ambulatory Visit Summary PEBBLES JOHNSON :1955 Visit Date:06/29/2023 Ambulatory Visit Instructions Your Diagnosis Mixed incontinence Incontinence without sensory awareness Asymptomatic microscopic hematuria History of UTI Tests Performed Urnls Dip Stick Auto w/o Microscopy POC [id number] Your Care Team Attending Physician - MARYAM BEAVERS, Jean Paul Burton Primary Care Physician - JEFFY RAMOS MD This Is Your Medications List ciprofloxacin (Cipro 500 mg Tab) Contact prescribing physician if questions or concerns aspirin (aspirin 81 mg oral tablet) carvedilol (carvedilol 25 mg Tab) escitalopram (escitalopram 10 mg Tab) lisinopril nitroglycerin (nitroglycerin 0.4 mg sublingual Tab) pantoprazole (Pantoprazole [address] Tab) rosuvastatin (rosuvastatin 40 mg Tab) Procedures Performed Appendectomy, Colonoscopy, Hysterectomy. Discharge Vitals Heart Rate (Peripheral) 69 Respiratory Rate 16 Blood Pressure 134/78 Height 150 cm Height 59 in Weight 79 kg Weight 173.8 lb BMI 35.11 What to do next You Need to Schedule the Following Appointments Follow Up with MARYAM BEAVERS, Jean Paul Burton, OLEKSANDR When: Comments: sched cysto/urodynamics Where: [facility] [address], [place] [address] [phone] Medications What How Much When Instructions New ciprofloxacin (Cipro 500 mg Tab) 1 Tablets By Mouth Every day take one tab day before procedure and one tab after procedure Pickup at [facility][id number] Unchanged aspirin (aspirin 81 mg oral tablet) 1 Tablets By Mouth Every day Contact prescribing physician if questions or concerns Unchanged carvedilol (carvedilol 25 mg Tab) Contact prescribing physician if questions or concerns Unchanged escitalopram (escitalopram 10 mg Tab) Contact prescribing physician if questions or concerns Unchanged lisinopril By Mouth Every day Contact prescribing physician if questions or concerns Unchanged nitroglycerin (nitroglycerin 0.4 mg sublingual Tab) 1 Tablets Sublingual Every 5 minutes as needed for for chest pain Contact prescribing physician if questions or concerns Unchanged pantoprazole (Pantoprazole [address] Tab) By Mouth Every day Contact prescribing physician if questions or concerns Unchanged rosuvastatin (rosuvastatin 40 mg Tab) By Mouth Every day Contact prescribing physician if questions or concerns Pharmacy Information [facility] #[id number]: [address], [place] [id number] [phone] Test Results Urnls Dip Stick Auto w/o Microscopy POC 98812 (06/29/2023) Bilirubin Urine Dipstick - Negative Blood Urine Dipstick - 1+ Small Leukocytes Urine Dipstick - Negative Nitrite Urine Dipstick - Negative Protein Urine Dipstick - Trace Specific [facility] Urine Dipstick - >=1.030 Urine Appearance Urine Dipstick - Clear Urine Color Urine Dipstick - Yellow Urobilinogen Urine Dipstick - Normal 0.2-1 EU/dl pH Urine Dipstick - 5 Allergies sulfamethoxazole (....) Problems Ongoing - Any problem that you are currently receiving treatment for. Asymptomatic microscopic hematuria Depression History of UTI Hyperlipemia Hypertension Incontinence without sensory awareness Mixed incontinence Patient Survey You may receive a survey via text or e-mail asking about your office visit. Please share your experience with us by completing your survey. We appreciate your feedback and thank you for choosing us for your care. Education Materials Urodynamic Testing Urodynamic tests are done to determine how well your lower urinary tract is working. The lower urinary tract includes your bladder and the part of your body that drains urine from the bladder (urethra). When your kidneys filter your blood, urine is stored in your bladder until you feel the urge to urinate. Urination requires coordination between the nerves and muscles of your bladder and urethra. When your lower urinary tract is working well, you should be able to: ? Start urinating when your bladder is full. ? Empty your bladder completely. ? Control the flow of your urine. Why do I need urodynamic testing? You may need urodynamic testing to help find the cause of any of these problems: ? Leaking urine (incontinence). ? Problems starting or stopping your urine flow. ? Frequent or painful urination. ? Frequent urinary tract infections. ? Being unable to empty your bladder completely. ? Having strong urges to pass urine (urgency). ? Having a weak flow of urine. What are the risks? Generally, these tests are safe. However, some of the tests have risks, including: ? Discomfort. ? Frequent urge to urinate. ? Bleeding. ? Infection. ? Allergic reactions to medicines or dyes (contrast material). What happens before the test? ? Ask your health care provider about changing or stopping your regular medicines. This is especially important if you are taking diabetes med (more content not included)... Normal [facility] Patient Educationon 06-29-19 Patient Education Urology Urodynamic Testing Urodynamic tests are done to determine how well your lower urinary tract is working. The lower urinary tract includes your bladder and the part of your body that drains urine from the bladder (urethra). When your kidneys filter your blood, urine is stored in your bladder until you feel the urge to urinate. Urination requires coordination between the nerves and muscles of your bladder and urethra. When your lower urinary tract is working well, you should be able to: ? Start urinating when your bladder is full. ? Empty your bladder completely. ? Control the flow of your urine. Why do I need urodynamic testing? You may need urodynamic testing to help find the cause of any of these problems: ? Leaking urine (incontinence). ? Problems starting or stopping your urine flow. ? Frequent or painful urination. ? Frequent urinary tract infections. ? Being unable to empty your bladder completely. ? Having strong urges to pass urine (urgency). ? Having a weak flow of urine. What are the risks? Generally, these tests are safe. However, some of the tests have risks, including: ? Discomfort. ? Frequent urge to urinate. ? Bleeding. ? Infection. ? Allergic reactions to medicines or dyes (contrast material). What happens before the test? ? Ask your health care provider about changing or stopping your regular medicines. This is especially important if you are taking diabetes medicines or blood thinners. ? You may be asked to avoid urinating before coming to the test so that you arrive with a full bladder. ? Tell a health care provider about: ? Any allergies you have. ? All medicines you are taking, including vitamins, herbs, eye drops, creams, and ovqm-giz-mcavehx medicines. ? Whether you are or may be . What happens during the test? You may have various urodynamic tests. The tests may be done separately or may all be done during one visit. You may be given an antibiotic medicine before or after testing to help prevent infection. The types of tests that may be done include: Uroflowmetry This test measures how much urine you pass and how long it takes to pass. ? You will urinate into a certain type of toilet or device (flowmeter). ? The device will measure the volume and the time of your urine flow. ? These measurements will be sent to a computer that creates a graph of your urine flow. Postvoid residual measurement This test measures how much urine is left in your bladder after you urinate. ? The test may be done with ultrasound. In this method, sound waves and a computer will be used to create an image of your bladder. ? The test can also be done by inserting a thin, flexible tube (catheter) into your bladder after you urinate. The remaining urine will be removed through the catheter so it can be measured. ? Remaining urine will be measured in milliliters (mL). If you have more than 100 mL left in your bladder after you urinate, your bladder is not emptying as it should. Cystometric testing This test uses a type of bladder catheter that can measure pressure. ? You may be given a medicine to numb the area (local anesthetic). ? The area around the opening of your urethra will be cleaned. ? A urinary catheter will be passed through your urethra into your bladder and used to empty your bladder completely. ? A measuring catheter will be placed, and your bladder will be filled with warm, germ-free (sterile) water. ? Pressure measurements will be taken: ? As your bladder fills. ? When you feel the need to urinate. ? As your bladder is emptied. ? You may be asked to cough or bear down to check for leakage. ? In some cases, your bladder may be filled with a material that shows up on X-rays (contrast material) so that X-ray pictures can be taken during the test. Electromyogram This test measures the electrical activity of the nerves and muscles of your bladder and the opening of your urethra. ? Sticky patches (electrodes) will be placed near your rectum and urethra to measure electrical activity. ? The measurements will show how well your nerves are communicating with your muscles. What can I expect after the test? ? You should be able to go home right away and do your usual activities. ? You may be told to drink a glass of water every 30 minutes for the first 2 hours after testing. ? Taking a warm bath or using warm, wet cloths (warm compresses) may relieve any discomfort near your urethra. What do the results mean? Talk with your health care provider about what your results mean. Some common causes for abnormal results from urodynamic tests include: ? Enlarged prostate in men. ? Overactive bladder. ? Urinary tract infection. ? Nervous system diseases. ? Spinal cord damage. Questions to ask your health care provider Ask your health care provider, or the department that is doing the test: ? When will my results be (more content not included)... Normal [facility] Urology Office/Clinic Noteon 06-29-2023 Urology Office/Clinic Note Chief Complaint stresss incontinence HPI Staff New pt today for stress incontinence. Previously seen by PRW. Last 2011. Previous dx of urgency, frequency, microhematuria, mixed incontinence and chronic cystitis. Dysuria: no Incomplete bladder emptying: no Hematuria: no Frequency: every couple of hours Urgency: only if she has to wait too long Nocturia: 2-3 for a year Stream: no straining Leaking: yes Post void dripping: no Wearing pads/ Depends: large pads changes sometimes 2-3x Urge incontinence: sometimes Stress incontinence: with lifting, sneezing and coughing Incontinence without Sensory Awareness: pt states she has gotten out of bed and realized she was wet Abdominal pain: no Flank pain: lower back arthritis Sexual complaints: no History of Present Illness Tests reviewed: reviewed UA I have reviewed the previous health record information and history for this patient from external providers. I have reviewed and verified the staff HPI to be accurate for this encounter. Review of Systems PHQ Score Initial Depression Screen Score: 0 SCORE ROS - Provider Constitutional: denies weight loss, denies hot flashes. Eyes: denies eye problems. Gastrointestinal: denies nausea, denies vomiting. Cardiovascular: denies chest pain or angina. Integumentary: no dryness Musculoskeletal: denies musculoskeletal symptoms. ENMT: denies otolaryngeal symptoms. Respiratory: no shortness of breath. Heme/Lymph: denies easy bleeding tendency, denies easy bruising tendency. Psychiatric: no confusion, no anxiety. Genitourinary: See HPI. Physical Exam Vitals & Measurements HR: 69(Peripheral) RR: 16 BP: 134/78 HT: 59 in HT: 150 cm WT: 79 kg WT: 173.8 lb BMI: 35.11 General Appearance: alert , no acute distress, well nourished, well developed female. Head: normocephalic . Eyes: normal orbit and globe. ENMT: normal examination of external ears. Chest: Lungs CTA, respirations non labored . Cardiovascular: regular rate and rhythm. Abdomen: soft , non distended, no tenderness, no mass or organomegaly, no hernia. Genitourinary: bladder nonpalpable, no flank tenderness. Lymph Nodes: unremarkable palpation of the cervical area. Skin: warm, dry, no bruising. Psychiatric: cooperative, affect appropriate for age, normal judgement, euthymic mood. Assessment/Plan Pebbles is a 68 yo female new pt here for CHAY. Last seen by PRW 2011. 1. Mixed incontinence (N39.46: Mixed incontinence) S/p Cysto/UD 10/31/09. Took Vesicare 5mg in the past. BBS 24. States she leaks when she coughs/sneezes. Reports she is able to make it to the bathroom most times. Has had a few episodes where her pad was wet without her realizing. Voids q3hrs. Denies having to strain to empty. States the most bothersome sx is leaking and pad usage. Changes pads 2-3x/day, usually damp vs soaked. -Will schedule cysto with urodynamics. The risks and benefits have been discussed. The risks include bleeding, infection, and irritation of the bladder and urinary channel, among others. The patient, after being informed of procedural details and after questions have been answered, wishes to proceed. Full informed consent has been obtained. Will order Local anesthesia. 2. 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 3. Asymptomatic microscopic hematuria (R31.21: Asymptomatic microscopic hematuria) Hx of partial hysterectomy. Chronic. States she has had this at her gynecology appts for years. UA today shows small blood. Denies ever seeing any visible blood in her urine. -cysto as above 4. History of UTI (Z87.440: Personal history of urinary (tract) infections) States she has not had an infection recently. Has been increasing her water intake. Follow-up With When Contact Information MARYAM BEAVERS, Jean Paul Burton, [facility] [address] [place] [address] [phone] Additional Instructions: sched cysto/urodynamics Patient Education Urodynamic Testing Urinary Incontinence I, Lucia Hensley, personally scribed for Dr. Urban on 06/29/2023 11:57:37. . Documentation recorded by the scribe, Lucia Hensley, accurately reflects the services(s) I performed and decisions made by me. Authenticated by Dr. Urban on 06/29/2023 11:59:53. Problem List/Past Medical History Ongoing Asymptomatic microscopic hematuria Depression History of UTI Hyperlipemia Hypertension Incontinence without sensory awareness Mixed incontinence Historical No qualifying data Procedure/Surgical History Appendectomy, Colonoscopy, Hysterectomy. Medications aspirin 81 mg oral tablet, 81 mg= 1 tab(s), Oral, Daily carvedilol 25 mg Tab escitalopram 10 mg Tab lisinopril, Oral, Daily nitroglycerin 0.4 mg sublingual Tab, 0.4 mg= 1 tab(s), SubLingual, q5min, PRN Pantoprazole [address] Tab, Oral, Daily rosuvastatin 40 mg Tab, Oral, Daily (more content not included)... Normal [facility] Comment on above: Result Comment: Elec tronically Signed By: Jean Paul URBAN MD\.br\Date and Time Signed: 06/29/23 11:59 EST\.br\Electronically Co-Signed By: Lucia Hensley\.br\Date and Time Co-Signed: 06/29/23 11:57 EST US venous duplex LE BIon US venous duplex LE BI [facility] Main [address] [address] Ultrasound Report Signed Patient: Pebbles Johnson MR#: [id number] : 1955 Acct:[id number] Age/Sex: 68 / F ADM Date: 06/03/23 Loc: [facility] Room: Type: [facility] CLI Attending Dr: Gucci Meyers MD Ordering Provider: [...] Gucci Meyers MD06/03/2023 12:58 PM Dictation Location: [place] [address] Tech: Sondra Longo Transcribed By: SADIA 06/03/23 1258 Dictated By: Gucci Meyers MD 06/03/23 1258 Signed By: 06/03/23 1258 Normal [facility] XR knee LT 3V - NOT FOR ER U Danny 02-23-2023 XR knee LT 3V - NOT FOR ER USE [place] [place] [address] XRay Report Signed Patient: Pebbles Johnson MR#: [id number] : 1955 Acct:[id number] Age/Sex: 68 / F ADM Date: 02/23/23 Loc: [facility] Room: Type: [facility] Attending Dr: Alex Horton DO Copies to: [...] PROCESS. Impression dictated by: Marc Mak Jr., DAnne Marie02/23/2023 3:35 PM Dictation Location: [place] [address] Transcribed By: [facility] 02/23/23 1535 Dictated By: Marc Mak Jr, DO 02/23/23 1534 Signed By: 02/23/23 1535 [facility] MG MAMM SCREEN 3D FELICIA CADon 09-24-2022 MG MAMM SCREEN 3D FELICIA CAD Patient: PEBBLES JOHNSON Exam Date: 09/24/2022 : 1955 Gender:F Ordering : DR JEFFY RAMOS M.D. Admission #: [id number] Family : Order #: [id number] CLICK HERE TO VIEW EXAM RADIOLOGY REPORT [...] kidney cancer at age 31. LOCATION: [facility] BREAST COMPOSITION: Heterogeneously dense,which may obscure small [...] PALPABLE LUMP SHOULD BE BIOPSIED. Dictated by: Kirk Cesar M.D. on 09/24/2022 at 13:19 Approved by: Kirk Cesar M.D. on 09/24/2022 at 13:25 Normal [facility] Urinalysis - DIPSTICKon 04- Appearance (U) clear [facility] Other Bilirubin Ql (U) small [employer] ast [employer] Other Color (U) yellow [facility] Other Glucose Ql (U) Negative [facility] Other Hemoglobin Ql (U) Negative [facility] Other Ketones Ql (U) off chart [facility] Other Leukocyte esterase Test strip Ql (U) Negative [facility] Other Nitrite Ql (U) Negative [facility] Other pH (U) 5.0 [pH] [facility] Other Protein Ql (U) Negative [facility] Other Specific gravity (U) [Rel density] 1.010 [facility] Other Urobilinogen (U) [Mass/Vol] 0.2 mg/dL [facility] Other Urinalysis - DIPSTICK [facility] Other Urine Cultureon 09-24-2022 Bacteria identified Cx Nom (U) <9,000 colonies/ml mixed bacterial skin contaminants 2 Days PERFORMED BY: [place] [address] PATHOLOGIST FUEL CELL BINDER DARRICK GARZA M.D. Normal [facility] Comment on above: Performed By: #### C UU #### [facility] [address] LIPID PROFILEon 07-05-2022 CHOL-HDL RATIO NORM SEE BELOW Normal [facility] Comment on above: Result Comment: 3.3 - 4.4 LOW RISK 4.4 - 7.1 AVERAGE RISK 7.1 - 11.0 MODERATE RISK >11.0 HIGH RISK Performed By: #### L IPID #### [facility] [address] [place] [address] [address] Carlos Barlow Cholesterol [Mass/Vol] 181 mg/dL Normal <=200 [facility] Comment on above: Performed By: #### L IPID #### [facility] [address] [place] [address] [address] Carlos Barlow Cholesterol in HDL [Mass/Vol] 63 mg/dL Critically high 40-60 [facility] Comment on above: Performed By: #### L IPID #### [facility] [address] [place] [address] [address] Carlos Barlow Cholesterol in LDL [Mass/Vol] 88.0 mg/dL Normal [facility] Comment on above: Performed By: #### L IPID #### [facility] [address] [place] [address] [address] Carlos Barlow Cholesterol.total/C holesterol in HDL [Mass ratio] 2.9 {ratio} Normal [facility] Comment on above: Performed By: #### L IPID #### [facility] [address] [place] [address] [address] Carlos Barlow HDL NORMAL > or = 60 mg/dl - LO W CARDIOVASCULAR RISK <40 mg/dl - HIGH CARDIOVASCULAR RISK Normal [facility] Comment on above: Performed By: #### L IPID #### [facility] [address] [place] [address] [address] Carlos Barlow LDL CALC NORMAL SEE BELOW Normal [facility] Comment on above: Result Comment: <100 mg/dl OPTIMAL 100 - 129 mg/dl NEAR OR ABOVE OPTIMAL 130 - 159 mg/dl BORDERLINE HIGH 160 - 189 mg/dl HIGH >190 mg/dl VERY HIGH Performed By: #### L IPID #### [facility] [address] [place] [address] [address] Carlos Barlow Triglyceride [Mass/Vol] 150 mg/dL Normal <=150 [facility] Comment on above: Performed By: #### L IPID #### [facility] [address] [place] [address] [address] Carlos Barlow VLDL CALC 30.0 mg/dL Normal [facility] Comment on above: Performed By: #### L IPID #### [facility] [address] [place] [address] [address] Carlos Barlow 37on 07-01-2022 37 -Check cholesterol blood work when fasting -Continue current medications Normal [facility] Office Visiton 07-01-2022 Follow-up visit [id number] AlexPebbles 1955 F Date Provider Department Center 07/01/2022 [id number] PRIEST DEVON [facility] No family history on file Level of Service:52838 [place] OFFICE/OUTPATIENT ESTABLISHED LOW [facility] 20-29 MIN Reason for Visit and Comments: Hypertension [746077] Hyperlipidemia [182] Normal [facility] XR CHEST 1 Von 05-05-2022 XR CHEST [...] by: RO BONILLA Date: 2022-05-05 06:41 Normal [facility] XR NECK SOFT TISSUEon 2021 XR NECK [...] by: RO BONILLA Date: 2022-05-05 06:42 Normal [facility] XR LSPINE MIN 4 VIEWSon 10- XR LSPINE MIN 4 VIEWS EXAMINATION: XR [...] of lower lumbar spine. Electronically authenticated by: KIRK CESAR Date: 2022-04-01 06:49 Normal [facility] 36on 03-24-2022 36 Patient called c/o increased [...] try it and let us know. Normal [facility] LIPID PROFILEon 03-10-2022 CHOL-HDL RATIO NORM SEE BELOW Normal [facility] Comment on above: Result Comment: 3.3 - 4.4 LOW RISK 4.4 - 7.1 AVERAGE RISK 7.1 - 11.0 MODERATE RISK >11.0 HIGH RISK Performed By: #### B MP, LIPID, LIVER #### [facility] [address] [place] [address] [address] Carlos Barlow Cholesterol [Mass/Vol] 186 mg/dL Normal <=200 [facility] Comment on above: Performed By: #### B MP, LIPID, LIVER #### [facility] [address] [place] [address] [address] Carlos Barlow Cholesterol in HDL [Mass/Vol] 61 mg/dL Critically high 40-60 [facility] Comment on above: Performed By: #### B MP, LIPID, LIVER #### [facility] [address] [place] [address] [address] Carlos Barlow Cholesterol in LDL [Mass/Vol] 90.4 mg/dL Normal [facility] Comment on above: Performed By: #### B MP, LIPID, LIVER #### [facility] [address] [place] [address] [address] Carlos Barlow Cholesterol.total/C holesterol in HDL [Mass ratio] 3.0 {ratio} Normal [facility] Comment on above: Performed By: #### B MP, LIPID, LIVER #### [facility] [address] [place] [address] Dr. Carlos Barlow HDL NORMAL > or = 60 mg/dl - LO W CARDIOVASCULAR RISK <40 mg/dl - HIGH CARDIOVASCULAR RISK Normal [facility] Comment on above: Performed By: #### B MP, LIPID, LIVER #### [facility] [address] [place] [address] [address] Carlos Barlow LDL CALC NORMAL SEE BELOW Normal [facility] Comment on above: Result Comment: <100 mg/dl OPTIMAL 100 - 129 mg/dl NEAR OR ABOVE OPTIMAL 130 - 159 mg/dl BORDERLINE HIGH 160 - 189 mg/dl HIGH >190 mg/dl VERY HIGH Performed By: #### B MP, LIPID, LIVER #### [facility] [address] [place] [address] Dr. Carlos Barlow Triglyceride [Mass/Vol] 173 mg/dL Critically high <=150 [facility] Comment on above: Performed By: #### B MP, LIPID, LIVER #### [facility] [address] [place] [address] Dr. Carlos Barlow VLDL CALC 34.6 mg/dL Normal [facility] Comment on above: Performed By: #### B MP, LIPID, LIVER #### [facility] [address] [place] [address] Dr. Carlos Barlow LIVER PROFILEon 03-10-2022 Albumin [Mass/Vol] 3.6 g/dL Normal 3.4-5.0 [facility] Comment on above: Performed By: #### B MP, LIPID, LIVER #### [facility] [address] [place] [address] Dr. Carlos Barlow Albumin/Globulin [Mass ratio] 1.1 {ratio} Normal [facility] Comment on above: Performed By: #### B MP, LIPID, LIVER #### [facility] [address] [place] [address] Dr. Carlos Barlow ALP [Catalytic activity/Vol] 92 U/L Normal 46-116 [facility] Comment on above: Performed By: #### B MP, LIPID, LIVER #### [facility] [address] [place] [address] Dr. Carlos Barlow ALT [Catalytic activity/Vol] 20 U/L Normal 14-59 [facility] Comment on above: Performed By: #### B MP, LIPID, LIVER #### [facility] [address] [place] [address] Dr. Carlos Barlow AST [Catalytic activity/Vol] 16 U/L Normal 15-37 [facility] Comment on above: Performed By: #### B MP, LIPID, LIVER #### [facility] [address] [place] [address] Dr. Carlos Barlow BILI, CONJUGATED 0.1 mg/dL Normal 0.0-0.2 [facility] Comment on above: Performed By: #### B MP, LIPID, LIVER #### [facility] [address] [place] [address] Dr. Carlos Barlow Bilirubin [Mass/Vol] 0.3 mg/dL Normal 0.2-1.0 [facility] Comment on above: Performed By: #### B MP, LIPID, LIVER #### [facility] [address] [place] [address] Dr. Carlos Barlow Globulin (S) [Mass/Vol] 3.4 g/dL Normal [facility] Comment on above: Performed By: #### B MP, LIPID, LIVER #### [facility] [address] [place] [address] Dr. Carlos Barlow Protein [Mass/Vol] 7.0 g/dL Normal 6.4-8.2 [facility] Comment on above: Performed By: #### B MP, LIPID, LIVER #### [facility] [address] [place] [address] Dr. Carlos Barlow PROF CHEM 8 (BAS METB)on Anion gap [Moles/Vol] 12.0 mmol/L Normal [facility] Comment on above: Performed By: #### B MP, LIPID, LIVER ####[facility] [id number] [place] [id number]. Carlos Barlow Calcium [Mass/Vol] 9.6 mg/dL Normal 8.5-10.1 [facility] Comment on above: Performed By: #### B MP, LIPID, LIVER ####[facility] [id number] [place] [id number]. Carlos Barlow Chloride [Moles/Vol] 105 mmol/L Normal 98-107 [facility] Comment on above: Performed By: #### B MP, LIPID, LIVER ####[facility] [address] [place] [id number]. Carlos Barlow CO2 [Moles/Vol] 26.5 mmol/L Normal 21.0-32.0 [facility] Comment on above: Performed By: #### B MP, LIPID, LIVER ####[facility] [address] [place] [address]Dr. Carlos Barlow Creatinine [Mass/Vol] 0.89 mg/dL Normal 0.55-1.02 [facility] Comment on above: Performed By: #### B MP, LIPID, LIVER ####[facility] [address] [place] [address]Dr. Carlos Barlow EGFR-AF BULGARIAN >60 Normal >=60 [facility] Comment on above: Performed By: #### B MP, LIPID, LIVER ####[facility] [address] [place] [address]Dr. Carlos Barlow EGFR-NON AF BULGARIAN >60 Normal >=60 [facility] Comment on above: Performed By: #### B MP, LIPID, LIVER ####[facility] [address] [place] [id number]. Carlos Barlow Glucose [Mass/Vol] 116 mg/dL Critically high 74-106 [facility] Comment on above: Performed By: #### B MP, LIPID, LIVER ####[facility] [address] [place] [address]Dr. Carlos Barlow Potassium [Moles/Vol] 4.0 mmol/L Normal 3.5-5.1 [facility] Comment on above: Performed By: #### B MP, LIPID, LIVER ####[facility] [address] [place] [address]Dr. Carlos Barlow Sodium [Moles/Vol] 139 mmol/L Normal 136-145 [facility] Comment on above: Performed By: #### B MP, LIPID, LIVER ####[facility] [address] [place] [address]Dr. Carlos Barlow Urea nitrogen [Mass/Vol] 24.0 mg/dL Critically high 7.0-18.0 [facility] Comment on above: Performed By: #### B MP, LIPID, LIVER ####[facility] [address] [place] [address]Dr. Carlos Barlow Urea nitrogen/Creatinine [Mass ratio] 26.9 mg/mg Normal [facility] Comment on above: Performed By: #### B MP, LIPID, LIVER ####[facility] [id number] [place], [place] [address]Dr. Carlos Barlow Orders Onlyon 02-21-2022 Orders Only [id number] Pebbles Johnson 1955 F Date Provider Department Center 02/21/2022 EVERARDO GUTIERREZ [facility] No family history on file Normal [facility] CBC AUTO DIFFon 02-19-2022 BASO # 0.0 103/ul Normal 0.0-0.1 [facility] Comment on above: Performed By: #### C BC ####[facility] [address] [place], [place] [address]Dr. Carlos Barlow Basophils/100 WBC (Bld) 0.4 % Normal 0.2-2.0 [facility] Comment on above: Performed By: #### C BC ####[facility] [address] [address]Dr. Carlos Barlow EO # 0.2 103/ul Normal 0.0-0.7 [facility] Comment on above: Performed By: #### C BC ####[facility] [address] [place], [place] [address]Dr. Carlos Barlow Eosinophils/100 WBC (Bld) 4.1 % Normal 0.9-7.0 [facility] Comment on above: Performed By: #### C BC ####[facility] [address] [address]Dr. Carlos Barlow Erythrocyte distribution width (RBC) [Ratio] 13.2 % Normal 11.0-15.0 [facility] Comment on above: Performed By: #### C BC ####[facility] [address] [place], [place] [address]Dr. Carlos Barlow Hematocrit (Bld) [Volume fraction] 37.9 % Normal 36.0-48.0 [facility] Comment on above: Performed By: #### C BC ####[facility] [address] [place], [place] [address]Dr. Carlos Barlow Hemoglobin (Bld) [Mass/Vol] 12.7 g/dL Normal 12.0-16.0 [facility] Comment on above: Performed By: #### C BC ####[facility] [address] [place], [place] [address]Dr. Carlos Barlow IG # 0.02 10e3/ul Normal 0.00-0.03 [facility] Comment on above: Performed By: #### C BC ####[facility] [address] [place], [place] [address]Dr. Carlos Barlow IG % 0.4 % Normal 0.0-0.5 [facility] Comment on above: Performed By: #### C BC ####[facility] [address] [place], [place] [address]Dr. Carlos Barlow LYMPH # 0.9 103/ul Critically low 1.2-3.8 [facility] Comment on above: Performed By: #### C BC ####[facility] [address] [place], [place] [address]Dr. Carlos Barlow Lymphocytes/100 WBC (Bld) 17.7 % Critically low 20.5-60.0 [facility] Comment on above: Performed By: #### C BC ####[facility] [address] [address]Dr. Carlos Barlow MANUAL DIFF REQ NO Normal [facility] Comment on above: Performed By: #### C BC ####[facility] [address] [address]Dr. Carlos Barlow MCH (RBC) [Entitic mass] 28.4 pg Normal 26.7-34.0 [facility] Comment on above: Performed By: #### C BC ####[facility] [address] [place], [place] [address]Dr. Carlos Cain MCHC (RBC) [Mass/Vol] 33.5 g/dL Normal 29.9-35.2 [facility] Comment on above: Performed By: #### C BC ####[facility] [address] [place], [place] [address]Dr. Carlos Cain MCV (RBC) [Entitic vol] 84.8 fL Normal 81.0-99.0 [facility] Comment on above: Performed By: #### C BC ####[facility] [address] [place], [place] [address]Dr. Carlos Cain MONO # 0.7 103/ul Normal 0.3-0.8 [facility] Comment on above: Performed By: #### C BC ####[facility] [address] [place], [place] [address]Dr. Dulceulices Barlow Monocytes/100 WBC (Bld) 13.4 % Critically high 1.7-12.0 [facility] Comment on above: Performed By: #### C BC ####[facility] [address] [place], [place] [address]Dr. Dulceulices Cain NEUT # 3.3 103/ul Normal 1.4-6.5 [facility] Comment on above: Performed By: #### C BC ####[facility] [address] [place], [place] [address]Dr. Dulceulices Barlow Neutrophils/100 WBC (Bld) 64.0 % Normal 43.0-75.0 [facility] Comment on above: Performed By: #### C BC ####[facility] [address] [place], [place] [address]Dr. Carlos Barlow Platelet mean volume (Bld) [Entitic vol] 10.5 fL Normal 9.5-13.5 [facility] Comment on above: Performed By: #### C BC ####[facility] [address] [place], [place] [address]Ze. Carlos Barlow PLT 252 103/ul Normal 150-450 [facility] Comment on above: Performed By: #### C BC ####[facility] [address] [id number]. Carlos Cain RBC 4.47 106/ul Normal 4.20-5.40 [facility] Comment on above: Performed By: #### C BC ####[facility] [address] [id number]. Dulceulices Cain WBC 5.2 103/ul Normal 4.0-11.0 [facility] Comment on above: Performed By: #### C BC ####[facility] [address] [id number]. Carlos Barlow LIPID PROFILEon 02-19-2022 CHOL-HDL RATIO NORM SEE BELOW Normal [facility] Comment on above: Result Comment: 3.3 - 4.4 LOW RISK 4.4 - 7.1 AVERAGE RISK 7.1 - 11.0 MODERATE RISK >11.0 HIGH RISK Performed By: #### C MP, LIPID #### [facility] [address] [address] [address] Carlos Barlow Cholesterol [Mass/Vol] 241 mg/dL Critically high <=200 [facility] Comment on above: Performed By: #### C MP, LIPID #### [facility] [address] [address] [address] Carlos Barlow Cholesterol in HDL [Mass/Vol] 51 mg/dL Normal 40-60 [facility] Comment on above: Performed By: #### C MP, LIPID #### [facility] [address] [address] [address] Carlos Barlow Cholesterol in LDL [Mass/Vol] 133.8 mg/dL Normal [facility] Comment on above: Performed By: #### C MP, LIPID #### [facility] [address] [address] [address] Carlos Barlow Cholesterol.total/C holesterol in HDL [Mass ratio] 4.7 {ratio} Normal [facility] Comment on above: Performed By: #### C MP, LIPID #### [facility] [address] [place] [address] Dr. Carlos Barlow HDL NORMAL > or = 60 mg/dl - LO W CARDIOVASCULAR RISK <40 mg/dl - HIGH CARDIOVASCULAR RISK Normal [facility] Comment on above: Performed By: #### C MP, LIPID #### [facility] [address] [place] [address] Dr. Carlos Barlow LDL CALC NORMAL SEE BELOW Normal [facility] Comment on above: Result Comment: <100 mg/dl OPTIMAL 100 - 129 mg/dl NEAR OR ABOVE OPTIMAL 130 - 159 mg/dl BORDERLINE HIGH 160 - 189 mg/dl HIGH >190 mg/dl VERY HIGH Performed By: #### C MP, LIPID #### [facility] [address] [place] [address] Dr. Carlos Barlow Triglyceride [Mass/Vol] 281 mg/dL Critically high <=150 [facility] Comment on above: Performed By: #### C MP, LIPID #### [facility] [address] [place] [address] Dr. Carlos Barlow VLDL CALC 56.2 mg/dL Normal [facility] Comment on above: Performed By: #### C MP, LIPID #### [facility] [address] [place] [address] Dr. Carlos Barlow PROF 14(COMP METB)on 022 Albumin [Mass/Vol] 3.3 g/dL Critically low 3.4-5.0 [facility] Comment on above: Performed By: #### C MP, LIPID #### [facility] [address] [place] [address] Dr. Carlos Barlow Albumin/Globulin [Mass ratio] 0.9 {ratio} Normal [facility] Comment on above: Performed By: #### C MP, LIPID #### [facility] [address] [place] [address] Dr. Carlos Barlow ALP [Catalytic activity/Vol] 96 U/L Normal 46-116 [facility] Comment on above: Performed By: #### C MP, LIPID #### [facility] [address] [address] [address] Carlos Barlow ALT [Catalytic activity/Vol] 21 U/L Normal 14-59 [facility] Comment on above: Performed By: #### C MP, LIPID #### [facility] [address] [address] [address] Carlos Barlow Anion gap [Moles/Vol] 7.2 mmol/L Normal [facility] Comment on above: Performed By: #### C MP, LIPID #### [facility] [address] [address] [address] Carlos Barlow AST [Catalytic activity/Vol] 14 U/L Critically low 15-37 [facility] Comment on above: Performed By: #### C MP, LIPID #### [facility] [address] [address] [address] Carlos Barlow Bilirubin [Mass/Vol] 0.2 mg/dL Normal 0.2-1.0 [facility] Comment on above: Performed By: #### C MP, LIPID #### [facility] [address] [place] [address] Dr. Carlos Barlow Calcium [Mass/Vol] 9.5 mg/dL Normal 8.5-10.1 [facility] Comment on above: Performed By: #### C MP, LIPID #### [facility] [address] [place] [address] Dr. Carlos Barlow Chloride [Moles/Vol] 103 mmol/L Normal 98-107 [facility] Comment on above: Performed By: #### C MP, LIPID #### [facility] [address] [address] [address] Carlos Barlow CO2 [Moles/Vol] 32.1 mmol/L Critically high 21.0-32.0 [facility] Comment on above: Performed By: #### C MP, LIPID #### [facility] [address] [place] [address] Dr. Carlos Barlow Creatinine [Mass/Vol] 0.80 mg/dL Normal 0.55-1.02 [facility] Comment on above: Performed By: #### C MP, LIPID #### [facility] [address] [place] [address] Dr. Carlos Barlow EGFR-AF BULGARIAN >60 Normal >=60 [facility] Comment on above: Performed By: #### C MP, LIPID #### [facility] [address] [address] [address] Carlos Barlow EGFR-NON AF BULGARIAN >60 Normal >=60 [facility] Comment on above: Performed By: #### C MP, LIPID #### [facility] [address] [place] [address] Dr. Carlos Barlow Globulin (S) [Mass/Vol] 3.5 g/dL Normal [facility] Comment on above: Performed By: #### C MP, LIPID #### [facility] [address] [place] [address] Dr. Carlos Barlow Glucose [Mass/Vol] 110 mg/dL Critically high 74-106 [facility] Comment on above: Performed By: #### C MP, LIPID #### [facility] [address] [place] [address] Dr. Carlos Barlow Potassium [Moles/Vol] 4.3 mmol/L Normal 3.5-5.1 [facility] Comment on above: Performed By: #### C MP, LIPID #### [facility] [address] [place] [address] Dr. Carlos Barlow Protein [Mass/Vol] 6.8 g/dL Normal 6.4-8.2 [facility] Comment on above: Performed By: #### C MP, LIPID #### [facility] [address] [place] [address] Dr. Carlos Barlow Sodium [Moles/Vol] 138 mmol/L Normal 136-145 [facility] Comment on above: Performed By: #### C MP, LIPID #### [facility] [address] [place] [address] Dr. Carlos Barlow Urea nitrogen [Mass/Vol] 15.0 mg/dL Normal 7.0-18.0 [facility] Comment on above: Performed By: #### C MP, LIPID #### [facility] [address] [address] [address] Carlos Barlow Urea nitrogen/Creatinine [Mass ratio] 18.8 mg/mg Normal [facility] Comment on above: Performed By: #### C MP, LIPID #### [facility] [id number] Carlos Barlow Vital Signs Date Time Vital Sign Value Performing Clinician Facility 07-18-2023 10:05-0500 Body height 149.86 cm Lissa Yamilka Other [facility] Other 07-18-2023 10:05-0500 Body mass index (BMI) [Ratio] 33.42 kg/m2 Lissa Yamilka Other [facility] Other 07-18-2023 10:05-0500 Body temperature 96.2 [degF] Lissa Yamilka Other [facility] Other 07-18-2023 10:05-0500 Body weight 75.07 kg Lissa Yamilka Other [facility] Other 07-18-2023 10:05-0500 Diastolic blood pressure 81 mm[Hg] Lissa Yamilka Other [facility] Other 07-18-2023 10:05-0500 Respiratory rate 18 /min Lissa Yamilka Other [facility] Other 07-18-2023 10:05-0500 SaO2% (BldA) [Mass fraction] 96 % Lissa Yamilka Other [facility] Other 07-18-2023 10:05-0500 Systolic blood pressure 181 mm[Hg] Lissa Prather Other [facility] Other 06-29-2023 11:17-0500 Blood Pressure Location Jean Paul URBAN [facility] 06-29-2023 11:17-0500 Diastolic blood pressure 78 mm[Hg] Jean Paul URBAN [facility] 06-29-2023 11:17-0500 Heart rate 69 /min Jean Paul URBAN [facility] 06-29-2023 11:17-0500 Respiratory rate 16 /min Jean Paul URBAN [facility] 06-29-2023 11:17-0500 Systolic blood pressure 134 mm[Hg] Jean Paul URBAN [facility] 06-03-2023 09:00-0500 Body height 149.86 cm Marine Watson Other [employer] [facility] Other 06-03-2023 09:00-0500 Body mass index (BMI) [Ratio] 33.93 kg/m2 Marine Watson Other [facility] Other 06-03-2023 09:00-0500 Body temperature 96.7 [degF] Marine Watson Other [facility] Other 06-03-2023 09:00-0500 Body weight 76.2 kg Marine Watson Other [facility] Other 06-03-2023 09:00-0500 Diastolic blood pressure 80 mm[Hg] Marine Watson Other [facility] Other 06-03-2023 09:00-0500 SaO2% (BldA) [Mass fraction] 96 % Marine Watson Other [facility] Other 06-03-2023 09:00-0500 Systolic blood pressure 142 mm[Hg] Marine Watson Other [facility] Other 05-05-2023 09:45-0500 Body height 149.86 cm Jeffy Ramos Other [facility] Other 05-05-2023 09:45-0500 Body mass index (BMI) [Ratio] 33.93 kg/m2 Jeffy Ramos Other [facility] Other 05-05-2023 09:45-0500 Body weight 76.2 kg Jeffy Ramos Other [facility] Other 05-05-2023 09:45-0500 Diastolic blood pressure 76 mm[Hg] Jeffy Ramos Other [facility] Other 05-05-2023 09:45-0500 Systolic blood pressure 142 mm[Hg] Jeffy Ramos Other [facility] Other 04-29-2023 09:45-0500 Body height 149.86 cm Gucci Meyers Other [facility] Other 04-29-2023 09:45-0500 Body mass index (BMI) [Ratio] 34.53 kg/m2 Gucci Meyers Other [facility] Other 04-29-2023 09:45-0500 Body temperature 97.4 [degF] Gucci Meyers Other [facility] Other 04-29-2023 09:45-0500 Body weight 77.57 kg Gucci Luigi Other [facility] Other 04-29-2023 09:45-0500 Diastolic blood pressure 62 mm[Hg] Gucci Meyers Other [facility] Other 04-29-2023 09:45-0500 SaO2% (BldA) [Mass fraction] 99 % Gucci Lowryjair Other [facility] Other 04-29-2023 09:45-0500 Systolic blood pressure 140 mm[Hg] Gucci Luigi Other [facility] Other 04-09-2023 09:15-0400 Body height 149.86 cm Jeffy Ramos Other [facility] Other 04-09-2023 09:15-0400 Body mass index (BMI) [Ratio] 34.53 kg/m2 Jeffy Ramos Other [facility] Other 04-09-2023 09:15-0400 Body weight 77.57 kg Jeffy Ramos Other [facility] Other 04-09-2023 09:15-0400 Diastolic blood pressure 78 mm[Hg] Jeffy Ramos Other [facility] Other 04-09-2023 09:15-0400 Systolic blood pressure 151 mm[Hg] Jeffy Ramos Other [facility] Other 03-27-2023 10:30-0400 Body height 149.86 cm Jeffy Ramos Other [facility] Other 03-27-2023 10:30-0400 Body mass index (BMI) [Ratio] 35.75 kg/m2 Jeffy Ramos Other [facility] Other 03-27-2023 10:30-0400 Body weight 80.29 kg Jeffy Ramos Other [facility] Other 03-27-2023 10:30-0400 Diastolic blood pressure 81 mm[Hg] Jeffy Ramos Other [facility] Other 03-27-2023 10:30-0400 Systolic blood pressure 147 mm[Hg] Jeffy Ramos Other [facility] Other 03-11-2023 11:00-0400 Body height 149.86 cm Jeffy Ramos Other [facility] Other 03-11-2023 11:00-0400 Body mass index (BMI) [Ratio] 33.73 kg/m2 Jeffy Ramos Other [facility] Other 03-11-2023 11:00-0400 Body weight 75.75 kg Jeffy Ramos Other [facility] Other 03-11-2023 11:00-0400 Diastolic blood pressure 66 mm[Hg] Jeffy Ramos Other [facility] Other 03-11-2023 11:00-0400 Systolic blood pressure 109 mm[Hg] Jeffy Ramos Other [facility] Other 11-21-2022 10:45-0400 Body height 149.86 cm Jeffy Ramos Other [facility] Other 11-21-2022 10:45-0400 Body mass index (BMI) [Ratio] 33.12 kg/m2 Jeffy Richard Other [facility] Other 11-21-2022 10:45-0400 Body weight 74.39 kg Jeffy Richard Other [facility] Other 11-21-2022 10:45-0400 Diastolic blood pressure 70 mm[Hg] Jeffy Richard Other [facility] Other 11-21-2022 10:45-0400 Systolic blood pressure 112 mm[Hg] Jeffy Richard Other [facility] Other 10-14-2021 10:45-0400 Body height 149.86 cm Alex Horton Other [facility] Other 10-14-2021 10:45-0400 Body mass index (BMI) [Ratio] 33.93 kg/m2 Alex Sol Other [facility] Other 10-14-2021 10:45-0400 Body weight 76.2 kg Alex Sol Other [facility] Other 09-23-2021 11:15-0400 Body height 149.86 cm Alex Sol Other [facility] Other 09-23-2021 11:15-0400 Body mass index (BMI) [Ratio] 33.12 kg/m2 Alex Sol Other [facility] Other 09-23-2021 11:15-0400 Body weight 74.39 kg Alex Sol Other [facility] Other Encounters Encounter Date Encounter Type Care Provider Facility Start: 10-16-2023 ambulatory Jean Paul Stone ty:[facility] Start: 07-28-2023 End: 07-29-2023 ambulatory Jean Paul Micheal MARYAM Facility:[facility] Start: 07-28-2023 End: 07-28-2023 Patient encounter procedure Jean Paul R MARYAM [facility] Start: 07-18-2023 End: 07-18-2023 ambulatory Lissa Prather Other [facility] Other Start: 07-18-2023 Office outpatient vi sit 15 minutes Lissa Prather [facility] Start: 06-29-2023 End: 06-30-2023 ambulatory Jean Paul Micheal MARYAM Facility:[facility] Start: 06-29-2023 End: 06-29-2023 Patient encounter procedure Jean Paul Micheal MARYAM [facility] Start: 06-03-2023 End: 06-03-2023 Patient encounter procedure Marine Victoriakathrin [facility] Vascular Surgery Start: 06-03-2023 End: 06-03-2023 ambulatory NON STAFF [facility] Other Start: 05-20-2023 End: 05-20-2023 ambulatory Jeffy Ramos Other [facility] Other Start: 05-20-2023 Telephone encounter Jeffy Ramos [facility] Start: 05-05-2023 End: 05-05-2023 ambulatory Jeffy Ramos Other [facility] Other Start: 05-05-2023 Office outpatient vi sit 15 minutes Jeffy Ramos [facility] Start: 04-29-2023 End: 04-29-2023 ambulatory Gucci Meyers Other [facility] Other Start: 04-29-2023 Office outpatient ne w 30 minutes Gucci Meyers [facility] Vascular Surgery Start: 04-29-2023 Telephone encounter Gucci sexton [facility] [employer] Start: 04-21-2023 End: 04-21-2023 ambulatory Alex Horton Other [facility] Other Start: 04-21-2023 Telephone encounter [facility] Start: 04-09-2023 End: 04-09-2023 ambulatory Jeffy Ramos Other [facility] Other Start: 04-09-2023 Office outpatient vi sit 15 minutes Jeffy Ramos [facility] Start: 03-30-2023 End: 03-30-2023 ambulatory Jeffy Ramos Other [facility] Other Start: 03-30-2023 Telephone encounter Jeffy Ramos [facility] Start: 03-27-2023 End: 03-27-2023 ambulatory Jeffy Ramos Other [facility] Other Start: 03-27-2023 Office outpatient vi sit 15 minutes Jeffy Ramos [facility] Start: 03-24-2023 End: 03-24-2023 ambulatory Jeffy Ramos Other [facility] Other Start: 03-24-2023 Telephone encounter Jeffy Ramos [facility] Start: 03-23-2023 ambulatory Jean Paul URBAN Facility :[facility] Start: 03-11-2023 End: 03-11-2023 ambulatory Jeffy Ramos Other [facility] Other Start: 03-11-2023 Office outpatient vi sit 15 minutes Jeffy Ramos [facility] Start: 02-23-2023 End: 02-23-2023 ambulatory Alex Horton Facility:[facility] Start: 02-23-2023 End: 02-23-2023 ambulatory NON STAFF [facility] Work Phone: Start: 02-23-2023 End: 02-23-2023 Patient encounter procedure [facility] Start: 02-03-2023 End: 02-03-2023 ambulatory Jeffy Ramos Other [facility] Other Start: 02-03-2023 Telephone encounter Jeffy Ramos [facility] Start: 11-21-2022 End: 11-21-2022 ambulatory Jeffy Ramos Other [facility] Other Start: 11-21-2022 Office outpatient vi sit 15 minutes Jeffy Ramos [facility] Start: 09-26-2022 End: 09-26-2022 ambulatory Jeffy Ramos Other [facility] Other Start: 09-26-2022 Telephone encounter Jeffy Ramos [facility] Start: 09-24-2022 Nursing evaluation o f patient and report Jeffy Ramos [facility] Start: 09-24-2022 End: 09-25-[address] JEFFY RAMOS [facility] Work Phone: Start: 09-24-2022 End: 09-24-2022 Departed Referred MD Jeffy Ramos Work Phone: [facility] [place] Work Phone: Start: 07-07-2022 (Televisit) Televisit Jeffy De La Cruz [facility] Start: 07-07-2022 End: 07-07-2022 ambulatory Jeffy Ramos Other [facility] Other Start: 07-05-2022 End: 07-06-[address] DOCTOR MCCULLOUGH Facility:[facility] Start: 07-01-2022 End: 07-01-2022 ambulatory [facility] Start: 05-13-2022 Adult health examination Jeffy Ramos Other [facility] Other Start: 05-05-2022 End: 05-05-[address] JEFFY RAMOS Facility:[facility] Start: 04-02-2022 End: 04-02-2022 ambulatory Alex Horton Other [facility] Other Start: 04-02-2022 Office outpatient vi sit 15 minutes Alex Horton [facility] Start: 03-31-2022 End: 04-01-[address] JEFFY RAMOS Facility:[facility] Start: 03-10-2022 End: 03-11-[address] GARLAND TEMPLE Facility:[facility] Start: 02-19-2022 End: 02-20-2022 ambulatory LEVY SUNDAY Facility:[facility] Start: 11-13-2021 End: 11-13-2021 ambulatory Alex Horton Other [facility] Other Start: 11-13-2021 Telephone encounter Alex RAMIRES [facility] Start: 10-28-2021 End: 10-28-2021 ambulatory Alex Horton Other [facility] Other Start: 10-28-2021 Telephone encounter Alex RAMIRES [facility] Start: 10-23-2021 End: 10-23-2021 ambulatory Alex Horton Other [facility] Other Start: 10-23-2021 Telephone encounter Alex Horton [facility] Start: 10-14-2021 End: 10-14-2021 ambulatory Alex Horton Other [facility] Other Start: 10-14-2021 Office outpatient vi sit 25 minutes Alex Horton [facility] Start: 09-23-2021 End: 09-23-2021 ambulatory Alex Horton Other [facility] Other Start: 09-23-2021 Office outpatient vi sit 15 minutes Alex Horton [facility] Procedures Date Procedure Procedure Detail Performing Clinician Start: 06-03-2023 Duplex scan of lower limb veins Start: 02-23-2023 X-ray of left knee Start: 09-13-2018 Screening for malignant neoplasm of cervix Jeffy Ramos Other Start: 04-10-2015 Screening mammography Jeffy Ramos Other Start: 05-16-2014 History and 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, administrative Jeffy Ramos Other Appendectomy Jean Paul URBAN Colonoscopy Jean Paul URBAN History of operative procedure on knee S/P arthroscopic knee surgery MD Jeffy Ramos Work Phone: Hysterectomy Jean Paul URBAN Screening for malign ant neoplasm of breast Jeffy Ramos Other Plan of Treatment Date Care Activity Detail Author Start: 09-24-2022 Bacteria identified in Urine by Culture Urine Culture [facility] Immunizations Immunization Date Immunization Notes Care Provider Fa ciliruben 07-23-2022 Prevnar 20 Jeffy Ramos Other [facility] Other 03-22-2022 COVID-19 Vaccine Moderna - Documentation Purposes Only Jeffy Ramos Other [facility] Other 03-22-2022 influenza virus vaccine, split virus (incl. purified surface antigen) Jeffy Ramos Other [facility] Other 06-05-2021 pneumococcal conjuga te vaccine, 13 valent Jeffy Ramos Other [facility] Other 05-23-2021 Do not use COVID-19 Pfizer 2 dose Alex Horton Other [facility] 09-28-2020 COVID-19 Jaguar Jimenes (Pfizer) MD Jeffy Ramos Work Phone: [facility] 09-18-2020 Do not use COVID-19 Pfizer 2 dose Alex Sol Other [facility] Other 08-28-2020 Do not use COVID-19 Pfizer 2 dose Alex Horton Other [facility] 03-09-2018 influenza virus vaccine, split virus (incl. purified surface antigen) Jeffy Ramos Other [facility] Other 02-29-2016 tetanus and diphther ia toxoids, adsorbed, preservative free, for adult use (5 Lf of tetanus toxoid and 2 Lf of diphtheria toxoid) Jeffy Ramos Other [facility] Other 04-09-2015 tetanus and diphther ia toxoids, adsorbed, preservative free, for adult use (5 Lf of tetanus toxoid and 2 Lf of diphtheria toxoid) Jeffy Ramos Other [facility] Other Payers Date Payer Category Payer Unknown [id number] 1955 Unknown [id number] 2.16.84 [id number] 1955 Unknown [id number] 2.16.84 [id number] 1955 Unknown [id number] 2.16.84 [id number] 1955 Unknown [id number] 2.16.84 [id number] 1955 Unknown [id number] 2.16.84 [id number] 1955 Unknown [id number] 2.16.84 [id number] 1955 Unknown [id number] 2.16.8 [id number] 1955 Unknown [id number] 2.16.8 [id number] 1955 Unknown [id number] 2.16.8 [id number] Self-pay Self Pay [id number] Unknown [employer] [id number] Social History Date Type Detail Facility Unknown if ever smoked [facility] Other Sex Assigned At [facility] Start: 03-12-2020 End: 10-22-2021 Tobacco smoking status NHIS Never smoked tobacco (finding) [facility] Start: 1955 Sex Assigned At Female [facility] Tobacco smoking status Never [facility] Functional Status Date Assessment Result Facility 07-28-2023 Functional Status N/A [facility] 06-29-2023 Functional Status N/A [facility] Clinical Notes 09-23-2021 to 07-28-2023 Note Date & Type Note Facility 07-28-2023 Note [id number] [facility] 07-28-2023 Hospital Discharg e instructions Patient Education 07/28/2023 11:01:31 EU - Cystoscopy with Urethral Dilation Discharge Instructions (CUSTOM) Cystoscopy with Urethral Dilation Voiding after the procedure: there may be some pain, urethral bleeding, burning, urgency, frequency and blood tinged urine following the procedure. These symptoms usually resolve within 2-5 days. Drink the amount of fluid it takes to keep the urine pink to yellow or clear in color. Drinking enough water and fluids will help to ease any discomfort after your procedure. If you are having problems that seem out of the ordinary, please call. If unable to contact your physician and you feel it is an emergency, go to the nearest emergency room or call 911 Diet you may resume your normal diet. Activity you may resume your normal activities Call if you have a fever over 100 degrees Follow Up Care 06/29/2023 12:29:49 With:Jean Paul URBAN Address: [facility] [address] [place] [address]- Business (1) When:10/26/2023 11:01:17 [facility] 07-28-2023 Note Custom Cystoscopy with Urethral Dilation ? Voiding after the procedure: there may be some pain, urethral bleeding, burning, urgency, frequency and blood tinged urine following the procedure. These symptoms usually resolve within 2-5 days. Drink the amount of fluid it takes to keep the urine pink to yellow or clear in color. Drinking enough water and fluids will help to ease any discomfort after your procedure. ? If you are having problems that seem out of the ordinary, please call. ? If unable to contact your physician and you feel it is an emergency, go to the nearest emergency room or call 911 ? Diet ? you may resume your normal diet. ? Activity ? you may resume your normal activities ? Call if you have a fever over 100 degrees [facility] 07-18-2023 Evaluation note Encounter Date Diagnosis Assessment Notes Jul, Contact with and (suspected) exposure to covid-19 (ICD-10 - Z20.822) Jul, Viral URI (ICD-10 - J06.9) Drink plenty of fluids, get plenty of rest. Take Tylenol or Motrin as needed for aches pains or fevers. Follow-up with your family physician if no improvement in 2 to 3 days [facility] Other 01-15-2024 Hospital Discharge instructions Patient Education 06/29/2023 11:57:20 Urodynamic Testing Urodynamic Testing Urodynamic tests are done to determine how well your lower urinary tract is working. The lower urinary tract includes your bladder and the part of your body that drains urine from the bladder (urethra). When your kidneys filter your blood, urine is stored in your bladder until you feel the urge to urinate. Urination requires coordination between the nerves and muscles of your bladder and urethra. When your lower urinary tract is working well, you should be able to: Start urinating when your bladder is full. Empty your bladder completely. Control the flow of your urine. Why do I need urodynamic testing? You may need urodynamic testing to help find the cause of any of these problems: Leaking urine (incontinence). Problems starting or stopping your urine flow. Frequent or painful urination. Frequent urinary tract infections. Being unable to empty your bladder completely. Having strong urges to pass urine (urgency). Having a weak flow of urine. What are the risks? Generally, these tests are safe. However, some of the tests have risks, including: Discomfort. Frequent urge to urinate. Bleeding. Infection. Allergic reactions to medicines or dyes (contrast material). What happens before the test? Ask your health care provider about changing or stopping your regular medicines. This is especiallyimportant if you are taking diabetes medicines or blood thinners. You may be asked to avoid urinating before coming to the test so that you arrive with a full bladder. Tell a health care provider about: ?Any allergies you have. ?All medicines you are taking, including vitamins, herbs, eye drops, creams, and avrk-ukc-ikksqim medicines. ?Whether you are or may be . What happens during the test? You may have various urodynamic tests. The tests may be done separately or may all be done during one visit. You may be given an antibiotic medicine before or after testing to help prevent infection. The types of tests that may be done include: Uroflowmetry This test measures how much urine you pass and how long it takes to pass. You will urinate into a certain type of toilet or device (flowmeter). The device will measure the volume and the time of your urine flow. These measurements will be sent to a computer that creates a graph of your urine flow. Postvoid residual measurement This test measures how much urine is left in your bladder after you urinate. The test may be done with ultrasound. In this method, sound waves and a computer will be used to create an image of your bladder. The test can also be done by inserting a thin, flexible tube (catheter) into your bladder after youurinate. The remaining urine will be removed through the catheter so it can be measured. Remaining urine will be measured in milliliters (mL). If you have more than 100 mL left in your bladder after you urinate, your bladder is not emptying as it should. Cystometric testing This test uses a type of bladder catheter that can measure pressure. You may be given a medicine to numb the area (local anesthetic). The area around the opening of your urethra will be cleaned. A urinary catheter will be passed through your urethra into your bladder and used to empty your bladder completely. A measuring catheter will be placed, and your bladder will be filled with warm, germ-free (sterile)water. Pressure measurements will be taken: ?As your bladder fills. ?When you feel the need to urinate. ?As your bladder is emptied. You may be asked to cough or bear down to check for leakage. In some cases, your bladder may be filled with a material that shows up on X- rays (contrast material) so that X-ray pictures can be taken during the test. Electromyogram This test measures the electrical activity of the nerves and muscles of your bladder and the opening of your urethra. Sticky patches (electrodes) will be placed near your rectum and urethra to measure electrical activity. The measurements will show how well your nerves are communicating with your muscles. What can I expect after the test? You should be able to go home right away and do your usual activities. You may be told to drink a glass of water every 30 minutes for the first 2 hours after testing. Taking a warm bath or using warm, wet cloths (warm compresses) may relieve any discomfort near yoururethra. What do the results mean? Talk with your health care provider about what your results mean. Some common causes for abnormal results from urodynamic tests include: Enlarged prostate in men. Overactive bladder. Urinary tract infection. Nervous system diseases. Spinal cord damage. Questions to ask your health care provider Ask your health care provider, or the department that is doing the test: When will my results be ready? How will I get my results? What are my treatment options? What other tests do I need? What are my next steps? Contact a health care provider if: You have pain. You have blood in your urine. You have chills. You have a fever. Summary Urodynamic tests are done to determine how well your lower urinary tract is working. The lower urinary tract includes your bladder and urethra. You may need urodynamic testing to help find the cause of various problems with urination, such as leaking urine (incontinence) or problems starting or stopping your urine flow. You may have various urodynamic tests. The tests may be done separately or may all be done during one testing visit. Talk with your health care provider about what your results mean. Contact your health care provider if you have pain, chills, a fever, or blood in your urine. This information is not intended to replace advice given to you by your health care provider. Make sure you discuss any questions you have with your health care provider. Document Revised: 02/12/2022 Document Reviewed: 01/04/2021 [employer] Patient Education 2022 [employer]. 06/29/2023 11:52:01 Urinary Incontinence Urinary Incontinence Urinary incontinence refers to a condition in which a person is unable to control where and when topass urine. A person with this condition will urinate involuntarily. This means that the person urinates when he or she does not mean to. What are the causes? This condition may be caused by: Medicines. Infections. Constipation. Overactive bladder muscles. Weak bladder muscles. Weak pelvic floor muscles. These muscles provide support for the bladder, intestine, and, in women,the uterus. Enlarged prostate in men. The prostate is a gland near the bladder. When it gets too big, it can pinch the urethra. With the urethra blocked, the bladder can weaken and lose the ability to empty properly. Surgery. Emotional factors, such as anxiety, stress, or post-traumatic stress disorder (PTSD). Spinal cord injury, nerve injury, or other neurological conditions. Pelvic organ prolapse. This happens in women when organs move out of place and into the vagina. This movement can prevent the bladder and urethra from working properly. What increases the risk? The following factors may make you more likely to develop this condition: Age. The older you are, the higher the risk. Obesity. Being physically inactive. and childbirth. Menopause. Diseases that affect the nerves or spinal cord. Long-term, or chronic, coughing. This can increase pressure on the bladder and pelvic floor muscles. What are the signs or symptoms? Symptoms may vary depending on the type of urinary incontinence you have. They include: A sudden urge to urinate, and passing urine involuntarily before you can get to a bathroom (urge incontinence). Suddenly passing urine when doing activities that force urine to pass, such as coughing, laughing, exercising, or sneezing (stress incontinence). Needing to urinate often but urinating only a small amount, or constantly dribbling urine (overflowincontinence). Urinating because you cannot get to the bathroom in time due to a physical disability, such as arthritis or injury, or due to a communication or thinking problem, such as Alzheimer's disease (functional incontinence). How is this diagnosed? This condition may be diagnosed based on: Your medical history. A physical exam. Tests, such as: ?Urine tests. ?X-rays of your kidney and bladder. ?Ultrasound. ?CT scan. ?Cystoscopy. In this procedure, a health care provider inserts a tube with a light and camera (cystoscope) through the urethra and into the bladder to check for problems. ?Urodynamic testing. These tests assess how well the bladder, urethra, and sphincter can store and release urine. There are different types of urodynamic tests, and they vary depending on what the test is measuring. To help diagnose your condition, your health care provider may recommend that you keep a log of when you urinate and how much you urinate. How is this treated? Treatment for this condition depends on the type of incontinence that you have and its cause. Treatment may include: Lifestyle changes, such as: ?Quitting smoking. ?Maintaining a healthy weight. ?Staying active. Try to get 150 minutes of moderate-intensity exercise every week. Ask your health care provider which activities are safe for you. ?Eating a healthy diet. ?Avoid high-fat foods, like fried foods. ?Avoid refined carbohydrates like white bread and white rice. ?Limit how much alcohol and caffeine you drink. ?Increase your fiber intake. Healthy sources of fiber include beans, whole grains, and fresh fruitsand vegetables. Behavioral changes, such as: ?Pelvic floor muscle exercises. ?Bladder training, such as lengthening the amount of time between bathroom breaks, or using the bathroom at regular intervals. ?Using techniques to suppress bladder urges. This can include distraction techniques or controlled breathing exercises. Medicines, such as: ?Medicines to relax the bladder muscles and prevent bladder spasms. ?Medicines to help slow or prevent the growth of a man's prostate. ?Botox injections. These can help relax the bladder muscles. Treatments, such as: ?Using pulses of electricity to help change bladder reflexes (electrical nerve stimulation). ?For women, using a clinical medical assistant to prevent urine leaks. This is a small, tampon-like, disposabledevice that is inserted into the urethra. ?Injecting collagen or carbon beads (bulking agents) into the urinary sphincter. These can help thicken tissue and close the bladder opening. ?Surgery. Follow these instructions at home: Lifestyle Limit alcohol and caffeine. These can fill your bladder quickly and irritate it. Keep yourself clean to help prevent odors and skin damage. Ask your health care provider about special skin creams and cleansers that can protect the skin from urine. Consider wearing pads or adult diapers. Make sure to change them regularly, and always change them right after experiencing incontinence. General instructions Take dczc-mos-mvcsjgr and prescription medicines only as told by your health care provider. Use the bathroom about every 3 4 hours, even if you do not feel the need to urinate. Try to empty your bladder completely every time. After urinating, wait a minute. Then try to urinate again. Make sure you are in a relaxed position while urinating. If your incontinence is caused by nerve problems, keep a log of the medicines you take and the times you go to the bathroom. Keep all follow-up visits. This is important. Where to find more information National [place] of Diabetes and Digestive and Kidney Diseases: www.niddk.nih.gov [employer] [place] [employer] Association: www.urologyhealth.org Contact a health care provider if: You have pain that gets worse. Your incontinence gets worse. Get help right away if: You have a fever or chills. You are unable to urinate. You have redness in your groin area or down your legs. Summary Urinary incontinence refers to a condition in which a person is unable to control where and when topass urine. This condition may be caused by medicines, infection, weak bladder muscles, weak pelvic floor muscles, enlargement of the prostate (in men), or surgery. Factors such as older age, obesity, and childbirth, menopause, neurological diseases, andchronic coughing may increase your risk for developing this condition. Types of urinary incontinence include urge incontinence, stress incontinence, overflow incontinence, and functional incontinence. This condition is usually treated first with lifestyle and behavioral changes, such as quitting smoking, eating a healthier diet, and doing regular pelvic floor exercises. Other treatment options include medicines, bulking agents, medical devices, electrical nerve stimulation, or surgery. This information is not intended to replace advice given to you by your health care provider. Make sure you discuss any questions you have with your health care provider. Document Revised: 01/04/2021 Document Reviewed: 01/04/2021 [employer] Patient Education 2022 [employer]. Follow Up Care 03/23/2023 10:22:20 With:MARYAM BEAVERS, Jean Paul Burton, URL Address: [facility] [address], [place] [address]- [phone] When: Unknown Comments:sched cysto/urodynamics [facility] [place] 12-20-2023 Evaluation note* Encounter Date Diagnosis Assessment Notes Treatment Notes Treatment Clinical Notes May, Asymptomatic varicose veins of both [...] Edema of right ankle (ICD-10 - M25.471) [facility] Other 12-06-2023 Evaluation note* Encounter Date Diagnosis Assessment Notes Treatment Notes Treatment Clinical Notes May, Lumbar radiculopathy (ICD-10 - M54.16) [facility] Other 11-21-2023 Evaluation note* Encounter Date Diagnosis Assessment Notes Treatment Notes Treatment Clinical Notes Apr, Lumbar pain (ICD-10 - M54.50) Continue followup w chiropractor in 1 hr. XR order given. Discussed potential referral to pain management if needed. Will call w update. Taking motrin tid for pain. [facility] Other 11-15-2023 Evaluation note* Encounter Date Diagnosis [...] few weeks to go over the results. [facility] Other 10-26-2023 Evaluation note* Encounter Date Diagnosis Assessment Notes Treatment Notes Treatment Clinical Notes Mar, Anxiety, generalized (ICD-10 - F41.1) Skin exam normal. Suspect her anxiety is causing the itching sensation. Discussed medication and counseling. Followup in 1 month. [facility] Other 10-13-2023 Evaluation note* Encounter Date Diagnosis Assessment Notes Treatment Notes Treatment Clinical Notes Mar, Right ankle swelling (ICD-10 - M25.471) Discussed importance to r/o DVT. Consider referral based on US results. [facility] Other 09-27-2023 Evaluation note* Encounter Date Diagnosis Assessment Notes Treatment Notes Treatment Clinical Notes Feb, Essential hypertension (ICD-10 - I10) Discussed low bp today and how this can be linked to her symptoms of lightheadedness. Will hold chlorthalidone. Check bp daily. Call with readings. Followup in 1 month. [facility] Other 06-09-2023 Evaluation note* Encounter Date Diagnosis Assessment Notes Treatment Notes Treatment Clinical Notes Nov, Pruritus (ICD-10 - L29.9) Med could relieve itching and help her sleep Nov, Situational anxiety (ICD-10 - F41.8) Discussed medications and stress relief. Continue present chronic medications. [facility] Other 04-12-2023 Evaluation note* Encounter Date Diagnosis Assessment Notes Treatment Notes Treatment Clinical Notes Sep, Dysuria (ICD-10 - R30.0) [facility] Other 01-23-2023 Evaluation note* Encounter Date Diagnosis Assessment Notes Treatment Notes Treatment Clinical Notes Jun, Allergic cough (ICD-10 - R05.8) Discussed symptom management with Coricidin and Claritin. Call if fevers or shortness of breath occurs. Discussed masking at work for her own wellness as well as her coworkers and customers. [facility] Other 01-17-2023 NotePatient here for 4 mo [...] light-headedness. All other systems reviewed and are negative.[facility] 07-01-2022 NoteCardiology Clinic Note Subjective Pebbles Johnson [...] up in about 6 months (around 12/29/2022). Yuval Priest APRN-[facility]* Encounter Date Diagnosis Assessment Notes [...] get an MRI of the lumbar spine [facility] Other 10-18-2022 NotePROCEDURE: XR HIP LT 2 3V W PELVIS HISTORY: Left side sciatica ; low back and left hip pain for 2 weeks COMPARISON: None. FINDINGS: BONES:No fracture, acute abnormality, or significant arthropathy. SOFT TISSUES:No visible soft tissue swelling. EFFUSION:None visible. OTHER: Negative. IMPRESSION: 1. No acute bone abnormality or significant degenerative joint disease. Electronically authenticated by: KIRK CESAR Date: 2022-04-01 06:49[facility]06[facility]01[facility] Evaluation note* Encounter Date Diagnosis Assessment Notes Treatment Notes Treatment Clinical Notes Nov, Other specified postprocedural states (ICD-10 - Z98.890) [facility] Other 05-16-2022 Evaluation note* Encounter Date Diagnosis Assessment Notes Treatment Notes Treatment Clinical Notes October, Primary osteoarthritis of left knee (ICD-10 - M17.12) [facility] Other 05-02-2022 Evaluation note* Encounter Date Diagnosis [...] done prior to surgical procedure to limit toshia-operative risks. I have discussed the planned procedure, how and who performs the procedure, and the personnel involved. Cardiovascular, pulmonary, and other life threatening episodes can occur during surgery although there is a low risk of these happening. Surgical risks including bleeding, neurovascular injury, wound closure problems and infection were discussed. Toshia-operative risks including infection, bleeding, wound healing problems, [...] poor healing. 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 I [...] follow-up after this for further treatment options. [facility] Other 04-11-2022 Evaluation note* Encounter Date Diagnosis [...] follow-up after this for further treatment options. [facility] Other Evaluation + Plan note Future Appointments Appointment Date:07/28/2023 09:00:00 AM Scheduled Provider: Location:[facility] Appointment Type:Urology FT Appointment Date:07/28/2023 10:15:00 AM Scheduled Provider: Location:[facility] Appointment Type:Urology FT [facility] evaluation + Plan note Future Appointments Appointment Date:10/16/2023 10:30:00 AM Scheduled Provider:Jean Paul URBAN MD Location:[facility] Other Evaluation noteNo assessment information available [facility] Work Phone: [facility] Narrative - Reported* Type Description Date Medical History Benign essential HTN Medical History Hypercholesterolemia Surgical History colonoscopy Surgical History partial hysterectomy Hospitalization History see above [facility] Other [facility] Narrative - Reported* Type Description Date [...] knee surgery 10/2021 Hospitalization History see above [place] [facility] Other Hospital course Narrative No data available for this section [facility] [employer] progress note No data available for this section [facility] [employer] reason for visit NarrativeLOWER BACK - REFERRAL FOR [facility] [employer] Other Summary Purpose Family History No Family History Records Found Relationship Condition Age at Onset Recorded Date/T elizabeth Not Specified Malignant neoplasm of kidney Unknown father Pulmonary emphysema Unknown brother Chronic obstructive pulmonary disease Unk nown Advance Directives No Advanced Directives Records Found Advance Directive Response Recorded Date/ Time Advance Directives No July 08, 2020 7:33pm Advance Directive Response Recorded Date/ Time Advance Directives No July 08, 2020 6:33pm Reason for Referral Reason lumbar pain Diagnosis 1 Lumbar radiculopathy (M54.16) Referral Organization [facility] [place] Referring Provider First Name Jeffy Referring Provider Last Name Richard Referring Provider Specialty [facility] Referred Organization [facility] Referred Address [address] [place], [place],[address] Referred Provider Specialty Pain Medicin e Referral Priority Routine Reason *Waiting for appt swelling and varicosities Diagnosis 1 Right ankle swelling (M25.471) Referral Organization [facility] [place] Referring Provider First Name Jeffy Referring Provider Last Name Richard Referring Provider Specialty [facility] Referred Organization [facility] Vascular Surge ry Referred Provider Gucci Meyers Referred Address [address],[address] Referred Provider Specialty Vascular Navjot soledad Referral Priority Routine General Notes Yuridia Garcia 12:53:57 PM >received today, faxed P2P Chief Complaint and Reason for Visit Chief Complaint i83.813 Additional Source Comments REASON FOR VISIT (unrecogniz ed section and content) Recheck Left KneeReview MRI Resultssurgery questionsrxpain medRecheck Left KneeCOUGH, RUNNY NOSEUA-Frequency- Stomach Painurine cultureAnxiety/Nervesrefilldizzy lightheadedmessageswollen anklesUS legOn-Going IssuesNo InformationReferred by Dr. Jeffy Ramos for swelling and varicositiesVascular surgery office note4 week follow up; To go over FF results; B/L FF legs at 8:00amlumbar xrCOUGH, CONGESTION, COVID EXPOSURE INFORMATION SOURCE (unrecogn ized section and content) DATE CREATED AUTHOR 07/02/2022 [facility] DATE CREATED AUTHOR AUTHOR'S ORGANIZ ATION 09/30/2022 [facility] DATE CREATED AUTHOR AUTHOR'S ORGANIZ ATION 06/04/2023 [facility] DATE CREATED AUTHOR AUTHOR'S ORGANIZ ATION 07/29/2023 [facility] Care Teams (unrecognized sec tion and content) Team Status: Inactive Member Role Status Dates Jeffy Ramos MD Attending Provider Active Team Status: [...] BE BASED ON THE PRIMARY CLINICAL RECORDS. [employer] provides no warranty or guarantee of the accuracy or completeness of information in this document.
[2023-08-07] MEDS: LIDOCAINE HCL 1% PF 20 MG/2 ML VIAL INJ (18:42)
[2023-08-07] MEDS: ADACEL DIPH,PERTUSS(ACELL),TET VAC/PF 0.5 ML ADULT SYRINGE IM (18:42)
--- NOTE | 2023-08-07 18:43 | ED.GENADUL1 ---
Documented by User: Shaniqua Ferguson 08/07/23 19:00 HPI - General Adult General Chief complaint: Wound/Laceration Stated complaint: Laceration Time Seen by Provider: 08/07/23 18:28 Source: patient Mode of arrival: walk-in Limitations: no limitations History of Present Illness HPI narrative: 68-year-old female presents with chief complaint of a laceration to the left index finger. 1.5 cm laceration noted to the distal aspect of the left index finger. While cutting with a pair of scissors at [employer]. She was working. Related Data Home Medications Medication Instructions Recorded Confirmed carvedilol 25 mg tablet 25 mg PO DAILY 12/29/22 06/24/23 lisinopril 40 mg tablet 40 mg PO DAILY 12/29/22 06/24/23 pantoprazole 40 mg tablet,delayed 40 mg PO DAILY 12/29/22 06/24/23 release rosuvastatin 40 mg tablet 40 mg PO DAILY 12/29/22 06/24/23 aspirin 81 mg tablet,delayed 81 mg PO DAILY 06/24/23 06/24/23 release (Adult Aspirin Regimen) escitalopram oxalate 10 mg tablet 10 mg PO DAILY 06/24/23 06/24/23 Allergies Allergy/AdvReac Type Severity Reaction Status Date / Time Sulfa (Sulfonamide Allergy Mild Rash Verified 12/29/22 04:17 Antibiotics) Review of Systems ROS Narrative All Systems are negative except as noted/marked. PFSH PFSH Medical History (Updated 08/07/23 @ 18:57 by Shaniqua Ferguson) Heartburn ?R12 - Heartburn (ICD-10) High cholesterol ?E78.00 - Pure hypercholesterolemia, unspecified (ICD-10) HTN (hypertension) ?I10 - Essential (primary) hypertension (ICD-10) Surgical History (Updated 06/24/23 @ 10:35 by Nila Arnold RN) History of arthroscopic knee surgery ?Z98.890 - Other specified postprocedural states (ICD-10) History of cardiac cath ?Z98.890 - Other specified postprocedural states (ICD-10) Social History Smoking status: Never smoker Exam Narrative Exam Narrative: Nurses note and vital signs reviewed and patient is not hypoxic. General: The patient appears well and in no apparent distress. Patient is resting comfortably on cart. Skin: Warm, dry, no pallor noted. There is no rash noted. Head: Normocephalic, atraumatic Eye: Normal conjunctiva, no drainage, EOMI. PERRL Ears, Nose, Mouth, and Throat: oral mucosa is moist. Nares patent. Mouth without vesicles. Ear canals patent. Tm's without Erythema Musculoskeletal: 1.5 5 cm laceration distal aspect left index finger, superficial, no active bleed The patient has no evidence of calf tenderness, no pitting edema, symmetrical pulses noted bilaterally Neurological: A&O x4, normal speech Psychiatric: Cooperative Constitutional Vital Signs, click to edit/add: Last Vital Signs Temp 98.8 F 08/07/23 18:20 Pulse 74 08/07/23 18:20 Resp 18 08/07/23 18:20 BP 176/90 H 08/07/23 18:20 Pulse Ox 97 08/07/23 18:20 Course Vital Signs Vital signs: Vital Signs Temperature 98.8 F 08/07/23 18:20 Pulse Rate 74 08/07/23 18:20 Respiratory Rate 18 08/07/23 18:20 Blood Pressure 176/90 H 08/07/23 18:20 Pulse Oximetry 97 08/07/23 18:20 Temperature 98.8 F 08/07/23 18:20 Pulse Rate 74 08/07/23 18:20 Respiratory Rate 18 08/07/23 18:20 Blood Pressure 176/90 H 08/07/23 18:20 Pulse Oximetry 97 08/07/23 18:20 Medical Decision Making [facility] Narrative Medical decision making narrative: Patient presenting here with chief complaint of laceration distal aspect left index finger volar surface.Wound was anesthetized 1% lidocaine solution locally.Area was cleaned and prepped. 2 simple sutures with 4-0 Ethilon were used. Patient was given suture instructions to follow-up with occupational medicine in 7 to 10 days for suture removal. No further workup needed Discharge Plan Discharge Chief Complaint: Wound/Laceration Clinical Impression: Laceration Patient Disposition: Home, Self-Care Time of Disposition Decision: 18:55 Condition: Good Prescriptions / Home Meds: No Action aspirin [Adult Aspirin Regimen] 81 mg tablet,delayed release (DR/EC) 81 mg PO DAILY escitalopram oxalate 10 mg tablet 10 mg PO DAILY carvedilol 25 mg tablet 25 mg PO DAILY pantoprazole 40 mg tablet,delayed release (DR/EC) 40 mg PO DAILY lisinopril 40 mg tablet 40 mg PO DAILY rosuvastatin 40 mg tablet 40 mg PO DAILY Instructions: Finger Laceration (ED) Additional Instructions: follow up with occupational medicine for suture removal in 7-10 days Stand Alone Forms: Portal Instructions Referrals: Farzana Aldana MD [Primary Care Provider] - 1 week Documented by User: Christian Narayan MD 08/07/23 19:29 HPI - General Adult General Chief complaint: Wound/Laceration Stated complaint: Laceration Time Seen by Provider: 08/07/23 18:28 Related Data Home Medications Medication Instructions Recorded Confirmed carvedilol 25 mg tablet 25 mg PO DAILY 12/29/22 06/24/23 lisinopril 40 mg tablet 40 mg PO DAILY 12/29/22 06/24/23 pantoprazole 40 mg tablet,delayed 40 mg PO DAILY 12/29/22 06/24/23 release rosuvastatin 40 mg tablet 40 mg PO DAILY 12/29/22 06/24/23 aspirin 81 mg tablet,delayed 81 mg PO DAILY 06/24/23 06/24/23 release (Adult Aspirin Regimen) escitalopram oxalate 10 mg tablet 10 mg PO DAILY 06/24/23 06/24/23 Allergies Allergy/AdvReac Type Severity Reaction Status Date / Time Sulfa (Sulfonamide Allergy Mild Rash Verified 12/29/22 04:17 Antibiotics) [facility] Medical History (Updated 08/07/23 @ 18:57 by Shaniqua Ferguson) Heartburn ?R12 - Heartburn (ICD-10) High cholesterol ?E78.00 - Pure hypercholesterolemia, unspecified (ICD-10) HTN (hypertension) ?I10 - Essential (primary) hypertension (ICD-10) Surgical History (Updated 06/24/23 @ 10:35 by Nila Arnold RN) History of arthroscopic knee surgery ?Z98.890 - Other specified postprocedural states (ICD-10) History of cardiac cath ?Z98.890 - Other specified postprocedural states (ICD-10) Social History Smoking status: Never smoker Exam Constitutional Vital Signs, click to edit/add: Last Vital Signs Temp 98.8 F 08/07/23 18:20 Pulse 74 08/07/23 18:20 Resp 18 08/07/23 18:20 BP 176/90 H 08/07/23 18:20 Pulse Ox 97 08/07/23 18:20 Course Vital Signs Vital signs: Vital Signs Temperature 98.8 F 08/07/23 18:20 Pulse Rate 74 08/07/23 18:20 Respiratory Rate 18 08/07/23 18:20 Blood Pressure 176/90 H 08/07/23 18:20 Pulse Oximetry 97 08/07/23 18:20 Temperature 98.8 F 08/07/23 18:20 Pulse Rate 74 08/07/23 18:20 Respiratory Rate 18 08/07/23 18:20 Blood Pressure 176/90 H 08/07/23 18:20 Pulse Oximetry 97 08/07/23 18:20 Medical Decision Making MDM Narrative Medical decision making narrative: Patient presenting here with chief complaint of laceration distal aspect left index finger volar surface.Wound was anesthetized 1% lidocaine solution locally.Area was cleaned and prepped. 2 simple sutures with 4-0 Ethilon were used. Patient was given suture instructions to follow-up with occupational medicine in 7 to 10 days for suture removal. No further workup needed I, Dr Narayan, have reviewed the above progress note and course of action in the ER; agree with the above. I have gone over history and physical, and discussed disposition and treatment plan with the patient. Discharge Plan Discharge Chief Complaint: Wound/Laceration Clinical Impression: Laceration Patient Disposition: Home, Self-Care Time of Disposition Decision: 18:55 Condition: Good Prescriptions / Home Meds: No Action aspirin [Adult Aspirin Regimen] 81 mg tablet,delayed release (DR/EC) 81 mg PO DAILY escitalopram oxalate 10 mg tablet 10 mg PO DAILY carvedilol 25 mg tablet 25 mg PO DAILY pantoprazole 40 mg tablet,delayed release (DR/EC) 40 mg PO DAILY lisinopril 40 mg tablet 40 mg PO DAILY rosuvastatin 40 mg tablet 40 mg PO DAILY Instructions: Finger Laceration (ED) Additional Instructions: follow up with occupational medicine for suture removal in 7-10 days Stand Alone Forms: Portal Instructions Referrals: Farzana Aldana MD [Primary Care Provider] - 1 week
== END 2023-08-07 20:10 | disposition home or self-care (01) ==
PROVIDERS: Emergency Provider Emergency Medicine; PCP Family Medicine
DX: S61.211A Laceration without foreign body of left index finger without damage to nail, initial encounter (principal); W26.8XXA Contact with other sharp object(s), not elsewhere classified, initial encounter
CPT/HCPCS: 12001; 90471; 90715; 99284

== ENCOUNTER 2024-01-31 23:52 | Observation (INO) | payer OTHER, SELFPAY ==
[2024-01-31 23:57] VITALS: BP 182/79; PULSE 76; TEMP 36.7; O2SAT 95; BMI 35.2
--- OUTSIDE RECORDS SUMMARY | 2024-01-31 23:59 | XMS_ITS | CCD ---
Author Organization [facility] Care Team Providers Care Content Publisher Name Role Phone Alex Horton Unavailable Farzana Ramos Unavailable MD Farzana Ramos Attending Provider [phone] RICHARD, DR FARZANA Smith Admitting Unavailable RAMOS, DR FARZANA Smith Attending Unavailable RAMOS, DR FARZANA Smith Primary Care Unavailable ZIEBER, DR VICTOR HUGO Burton Consulting Unavailable RAMOS, DR FARZANA Smith Consulting Unavailable MISC, DR MCLAUGHLIN Admitting Unavailable MISC, DR MCLAUGHLIN Attending Unavailable RAMOS, DR FARZANA Smith Primary Care Unavailable MISC, DR MCLAUGHLIN Consulting Unavailable RAMOS, DR FARZANA Smith Admitting Unavailable RAMOS, DR FARZANA Smith Attending Unavailable RAMOS, DR FARZANA Smith Primary Care Unavailable ZIEBSHIRLEY, DR VICTOR HUGO Burton Consulting Unavailable RAMOS, DR FARZANA Smith Consulting Unavailable RAMOS, DR FARZANA Smith Primary Care Unavailable RUBY, DR JANN Burton Consulting Unavailable TUNG, DR JANN Burton Admitting Unavailable TUNG, DR JANN Burton Attending Unavailable RO BONILLA Consulting Unavailable SUNDAY, LEVY Admitting Unavailable SUNDAY, LEVY Attending Unavailable RAMOS, DR FARZANA Smith Primary Care Unavailable SUNDAY, LEVY Consulting Unavailable ELTAHAWRichard, DR HAQUE Admitting Unavailable ELTAHAWY, DR HAQUE Attending Unavailable RAMOS, DR FARZANA Smith Primary Care Unavailable WINDY, [...] Attending Unavailable NON STAFF Primary Care Unavailable FARZANA RAMOS Primary Care Physician Lissa Prather Unavailable URBAN, Jean Paul R Attending Unavailable URBAN, Jean Paul R Attending Unavailable URBAN, Jean Paul R Referring Unavailable URBAN, Jean Paul R Attending Unavailable URBAN, Jean Paul R Admitting Unavailable URBAN, Jean Paul R Attending Unavailable URBAN, Jean Paul R Referring Unavailable WINDY, EHAB Attending Unavailable Allergies Allergy Classification Reported Allergen(s) Allergy Type Date of Onset Reaction(s) Facility (17 sources) Sulf-10 Drug allergy Unknown [facility] Other (4 sources) Sulfonamides (Antibiotic); Translations: [SULFA (SULFONAMIDE ANTIBIOTICS)] Allergy to substance 06-02-20 14 [facility] (3 sources) steriod Propensity to adverse reactions 10-17-19 22 [facility] (1 source) Sulfonamides (Antibiotic) Drug allergy (disorder) 01-10-20 13 [facility] (7 sources) HMG-CoA reductase inhibitor Drug allergy 08-27-19 14 Unknown [facility] Other (12 sources) Penicillin Drug Allergy 07-11-19 17 Unknown [facility] Other (3 sources) Allergies Reconciled Propensity to adverse reactions 04-30-20 21 Unknown [facility] Other (13 sources) Substance with sulfonamide structure and antibacterial mechanism of action (substance) Drug allergy 10-19-19 19 Unknown [facility] Other (3 sources) patient allergy list reviewed by nurse or physicia Propensity to adverse reactions 11-11-19 19 Comment:Done [facility] Other (7 sources) Statins Depletion *DIETARY PRODUCTS/DIETARY MANAGE Propensity to adverse reactions Unknown [facility] Other (4 sources) Sulfamethoxazole; Translations: [sulfamethoxazole ] Drug Allergy .... [facility] Medications Current Medications Medication Drug Class(es) Dates Sig (Normalized) Sig (Original) Aspir-81 (20 sources) Aspir-81 Active aspirin 81 mg oral tablet (3 sources) Platelet Aggregation Inhibitor, Nonsteroidal Anti-inflammatory Drug [...] Refills(s) 0 Start Date: 06/29/23 Status: Ordered estradiol 0.1 mg/ml vaginal cream (1 source) Estrogen Start: 10-16-19 24 estradiol 0.1 mg/g Vag Crm 1 gm, Vaginal, As Directed, 42.5 gm, Refill(s) 4, Apply with plunger 2x per week. Also pply around outer urethra with finger., [facility], 149, cm, 10/16/23 10:35:00 EDT, Height/Length Dosing, 76.4, kg, 10/16/23 10:35:00 EDT, Weight Dosing Start Date: 10/16/23 Status: Ordered hydroCHLOROthiazide 25 mg oral tablet [...] 0.4 Active nitroglycerin 0.4 mg sublingual tablet (3 sources) Nitrate Vasodilator Start: 06-29-2023 nitroglycerin 0.4 [...] procedure, # 2 tab(s), Refills(s) 0, Pharmacy: [facility], 150, cm, 06/29/23 11:34:00 EST, Height/Length [...] Her - as directed Orally Active nystatin 528262 unt/ml topical cream (11 sources) Polyene Antifungal Nystatin 1000 00 UNIT/GM 1 application Externally Twice a day for 10 days Not-Taking/PRN Nystatin 019953 UNIT/GM 1 application Externally Twice a day for 10 days Active PEG 3350-KCl-Na Bicarb-NaCl (1 source) PEG 3350-KCl-Na Bicarb-NaCl Not-Taking traMADol hydrochloride 50 mg oral tablet (4 sources) Opioid Agonist Start: 04-02-2022 take 1 tablet by mouth every four to six hours as needed traMADol HCl 50 MG 1 tablet as needed Orally every 4-6 hours as needed for 7 days [facility] # [id number] Mar, Not-Taking triamcinolone acetonide 40 mg/ml injectable suspension (12 sources) Corticosteroid Start: 02-23-2023 Kenalog-40 11 Feb, 2023 40 mg Problems Active Problems Problem Classification Problem Date Documented Date Episodic/Chronic Adjustment disorders (3 sources) Adjustment disorder with depressed mood; Translations: [Adjustment disorder with depressed mood] Onset: 11-04-2016 Chronic Anxiety disorders (20 sources) Anxiety; Translations: [Other specified anxiety disorders] Chronic Disorders of lipid metabolism (20 sources) Dyslipidemia; Translations: [Hyperlipidemia, unspecified] Onset: 02-19-2022 Chronic Essential hypertension (20 sources) Essential hypertension; Translations: [Essential (primary) hypertension] Onset: 03-10-2022 Chronic Fluid and electrolyte disorders (17 sources) Hypokalemia; Translations: [Hypokalemia] Episodic Genitourinary symptoms and ill-defined conditions (10 sources) Mixed incontinence; Translations: [Incontinence without sensory awareness] Onset: 06-29-2023 Chronic Genitourinary symptoms and ill-defined conditions (10 sources) Dysuria; Translations: [Dysuria] Onset: 03-06-2016 Episodic Immunizations and screening for infectious disease (3 sources) Vaccination given; Translations: [Encounter for immunization] Episodic Malaise and fatigue (20 sources) Fatigue; Translations: [Other fatigue] Episodic Menopausal disorders (2 sources) Atrophic vaginitis; Translations: [Postmenopausal atrophic vaginitis] Onset: 10-16-2023 Chronic Mood disorders (3 sources) Depressive disorder 06-29-2023 Chronic Mycoses (6 sources) Candidiasis of skin and nails; Translations: [Candidiasis of skin and nail] Onset: 11-16-2017 Episodic Nonmalignant breast conditions (3 sources) Inflammatory disorder of breast; Translations: [Mastitis without abscess] Episodic Nonspecific chest pain (8 sources) Chest pain; Translations: [Other chest pain] Onset: 08-25-2016 Episodic Osteoarthritis (20 sources) Osteoarthritis of left knee joint; Translations: [Unilateral primary osteoarthritis, left knee] Onset: 09-23-2021 Resolved: 10-28-2021 Chronic Other connective tissue disease (1 source) Other specified soft tissue disorders Episodic Other diseases of bladder and urethra (2 sources) Urethral stricture; Translations: [Unspecified urethral stricture, female] Onset: 10-16-2023 Episodic Other ear and sense organ disorders [...] chronicus; Translations: [Lichen simplex chronicus] Episodic Other nervous system disorders (20 sources) [...] primary osteoarthritis, left knee] Onset: 02-23-2023 Unclassified (3 sources) Asymptomatic microscopic hematuria 06-29-2023 Varicose veins [...] subsequent encounter] Onset: 11-16-2014 Resolved: 10-14-2021 Episodic Other aftercare (1 source) 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) use 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; Translations: [EXECUTIVE CANDIDATE DEVELOPER CURRENT USE OF ASPIRIN] Onset: 05-07-2022 Episodic Other aftercare (1 source) Other group home (current) drug therapy; Translations: [OTH EXECUTIVE CANDIDATE DEVELOPER CURRENT DRUG THERAPY] Onset: 05-07-2022 Episodic Other [...] Test Name Value Interpretation Reference Range Facility 36on 11-11-2023 36 PT INFORMED Normal [facility] Office Visiton 10-19-2023 Follow-up visit [id number] Pebbles Johnson 1955 F Date Provider Department Center 10/19/2023 [id number]-CYNTHIA BARRY Family History Problem Relation Age of Onset Cancer Other Coronary artery disease Other Depression Other Family Status - Relation Status Age at Other Level of Service:20349 [place] OFFICE/OUTPATIENT ESTABLISHED MOD MDM 30 MIN Normal [facility] Orders Onlyon 10-19-2023 Orders Only [id number] Pebbles Johnson 1955 F Date Provider Department Center 10/19/2023 Radhika8-EVERARDO ARELLANO Family History Problem Relation Age of Onset Cancer Other Coronary artery disease Other Depression Other Family Status - Relation Status Age at Other Normal [facility] Ambulatory Visit Summaryon 0 10-16-2023 Ambulatory Visit Summary PEBBLES JOHNSON :1955 Visit Date:10/16/2023 Ambulatory Visit Instructions Your Diagnosis Unspecified urethral stricture, female Mixed incontinence Incontinence without sensory awareness Vaginal atrophy Asymptomatic microscopic hematuria Your Care Team Attending Physician - Jean Paul URBAN MD Primary Care Physician - FARZANA RAMOS MD Referring Physician - Jean Paul URBAN MD This Is Your Medications List estradiol topical (estradiol 0.1 mg/g Vag Crm) Contact prescribing physician if questions or concerns aspirin (aspirin 81 mg oral tablet) carvedilol (carvedilol 25 mg Tab) lisinopril nitroglycerin (nitroglycerin 0.4 mg sublingual Tab) pantoprazole (Pantoprazole [address] Tab) rosuvastatin (rosuvastatin 40 mg Tab) Procedures Performed Cystourethroscopy with dilation of urethral stricture (07/28/2023), Urodynamics (07/28/2023), Appendectomy, Colonoscopy, Hysterectomy. Discharge Vitals Heart Rate (Peripheral) 80 Respiratory Rate 16 Blood Pressure 134/78 Height 149 cm Height 59 in Weight 76.4 kg Weight 168.08 lb BMI 34.41 What to do next You Need to Schedule the Following Appointments Follow Up with MARYAM BEAVERS, Jean Paul Burton, OLEKSANDR When: Where: [facility] [place] [address]- Medications What How Much When Instructions New estradiol topical (estradiol 0.1 mg/ g Vag Crm) 1 Gram Vaginal As Directed Refills: 4 Apply with plunger 2x per week. Also pply around outer urethra with finger. Pickup at [facility] Unchanged aspirin (aspirin 81 mg oral tablet) [...] physician if questions or concerns Pharmacy Information [facility]: [address] [place], [place] [id number] [phone] Allergies sulfamethoxazole (....) Problems Ongoing - Any problem that you are currently receiving treatment for. Asymptomatic microscopic hematuria Depression History of UTI Hyperlipemia Hypertension Incontinence without sensory awareness Mixed incontinence Unspecified urethral stricture, female Vaginal atrophy Patient Survey You may receive a survey via text or e-mail asking about your office visit. Please share your experience with us by completing your survey. We appreciate your feedback and thank you for choosing us for your care. Education Materials Vaginitis Vaginitis is a condition in which the vaginal tissue swells and becomes irritated. This condition is most often caused by a change in the normal balance of bacteria and yeast that live in the vagina. This change causes an overgrowth of certain bacteria or yeast, which causes the inflammation. There are different types of vaginitis. What are the causes? The cause of this condition depends on the type of vaginitis. It can be caused by: ? Bacteria (bacterial vaginosis). ? Yeast, which is a fungus (candidiasis). ? A parasite (trichomoniasis vaginitis). ? A virus (viral vaginitis). ? Low hormone levels (atrophic vaginitis). Low hormone levels can occur during , , or after menopause. ? Irritants, such as bubble baths, scented tampons, and feminine sprays (allergic vaginitis). Other factors can change the normal balance of the yeast and bacteria that live in the vagina. These include: ? Antibiotic medicines. ? Poor hygiene. ? Diaphragms, vaginal sponges, spermicides, control pills, and intrauterine devices (IUDs). ? Sex. ? Infection. ? Uncontrolled diabetes. ? A weakened body defense system (immune system). What increases the risk? This condition is more likely to develop in women who: ? Smoke or are exposed to secondhand smoke. ? Use vaginal douches, scented tampons, or scented sanitary pads. ? Wear tight-fitting pants or thong underwear. ? Use oral control pills or an IUD. ? Have sex without a condom or have multiple partners. ? Have an STI. ? Frequently use the spermicide nonoxynol-9. ? Eat lots of foods high in sugar or who have uncontrolled diabetes. ? Have low estrogen levels. ? Have a weakened immune system from an immune disorder or medical treatment. ? Are or . What are the signs or symptoms? Sympto (more content not included)... Normal [facility] Patient Educationon 10-16-19 Patient Education Obstetrics and Gynecology Vaginitis Vaginitis is a condition in which the vaginal tissue swells and becomes irritated. This condition is most often caused by a change in the normal balance of bacteria and yeast that live in the vagina. This change causes an overgrowth of certain bacteria or yeast, which causes the inflammation. There are different types of vaginitis. What are the causes? The cause of this condition depends on the type of vaginitis. It can be caused by: ? Bacteria (bacterial vaginosis). ? Yeast, which is a fungus (candidiasis). ? A parasite (trichomoniasis vaginitis). ? A virus (viral vaginitis). ? Low hormone levels (atrophic vaginitis). Low hormone levels can occur during , , or after menopause. ? Irritants, such as bubble baths, scented tampons, and feminine sprays (allergic vaginitis). Other factors can change the normal balance of the yeast and bacteria that live in the vagina. These include: ? Antibiotic medicines. ? Poor hygiene. ? Diaphragms, vaginal sponges, spermicides, control pills, and intrauterine devices (IUDs). ? Sex. ? Infection. ? Uncontrolled diabetes. ? A weakened body defense system (immune system). What increases the risk? This condition is more likely to develop in women who: ? Smoke or are exposed to secondhand smoke. ? Use vaginal douches, scented tampons, or scented sanitary pads. ? Wear tight-fitting pants or thong underwear. ? Use oral control pills or an IUD. ? Have sex without a condom or have multiple partners. ? Have an STI. ? Frequently use the spermicide nonoxynol-9. ? Eat lots of foods high in sugar or who have uncontrolled diabetes. ? Have low estrogen levels. ? Have a weakened immune system from an immune disorder or medical treatment. ? Are or . What are the signs or symptoms? Symptoms vary depending on the cause of the vaginitis. Common symptoms include: ? Abnormal vaginal discharge. ? The discharge is white, patel, or yellow with bacterial vaginosis. ? The discharge is thick, white, and cheesy with a yeast infection. ? The discharge is frothy and yellow or greenish with trichomoniasis. ? A bad vaginal smell. The smell is fishy with bacterial vaginosis. ? Vaginal itching, pain, or swelling. ? Pain with sex. ? Pain or burning when urinating. Sometimes there are no symptoms. How is this diagnosed? This condition is diagnosed based on your symptoms and medical history. A physical exam, including a pelvic exam, will also be done. You may also have other tests, including: ? Tests to determine the pH level (acidity or alkalinity) of your vagina. ? A whiff test to assess the odor that results when a sample of your vaginal discharge is mixed with a potassium hydroxide solution. ? Tests of vaginal fluid. A sample will be examined under a microscope. How is this treated? Treatment varies depending on the type of vaginitis you have. Your treatment may include: ? Antibiotic creams or pills to treat bacterial vaginosis and trichomoniasis. ? Antifungal medicines, such as vaginal creams or suppositories, to treat a yeast infection. ? Medicine to ease discomfort if you have viral vaginitis. Your sexual partner should also be treated. ? Estrogen delivered in a cream, pill, suppository, or vaginal ring to treat atrophic vaginitis. If vaginal dryness occurs, lubricants and moisturizing creams may help. You may need to avoid scented soaps, sprays, or douches. ? Stopping use of a product that is causing allergic vaginitis and then using a vaginal cream to treat the symptoms. Follow these instructions at home: Lifestyle ? Keep your genital area clean and dry. Avoid soap, and only rinse the area with water. ? Do not douche or use tampons until your health care provider says it is okay. Use sanitary pads, if needed. ? Do not have sex until your health care provider approves. When you can return to sex, practice safe sex and use condoms. ? Wipe from front to back. This avoids the spread of bacteria from the rectum to the vagina. General instructions ? Take tiss-ygz-[id number] and prescription medicines only as told by your health care provider. ? If you were prescribed an antibiotic medicine, take or use it as told by your health care provider. Do not stop taking or using the antibiotic even if you start to feel better. ? Keep all follow-up visits. This is important. How is this prevented? ? Use mild, unscented products. Do not use things that can irritate the vagina, such as fabric softeners. Avoid the following products if they are scented: ? Feminine sprays. ? Detergents. ? Tampons. ? Feminine hygiene products. ? Soaps or bubble baths. ? Let air reach your genital area. To do this: ? Wear cotton underwear to reduce moisture buildup. ? Avoid wearing underwear while you sleep. ? Avoid wearing tight pants and underwear or nylons without a cot (more content not included)... Normal [facility] Urology Office/Clinic Noteon 10-16-2023 Urology Office/Clinic Note Chief Complaint 3m s/p Cysto/UD HPI Staff S/P Cysto/UD & Uro's 07/28/23 DX: Mixed Incontinence, Incontinence w/o sensory awareness, Microscopic Hematuria & Hx of UTI. *No Urology Meds Since procedure, feels like she is emptying bladder better. Denies pain/burning and visible blood in urine. Denies UTI since last encounter. Still wearing a pad, pantyliner, changes 1-2x/day. Leaks mostly when she can't get to the restroom quick enough. Has improved since Cysto/UD. History of Present Illness Tests reviewed: reviewed UA and UDS report. I have reviewed the previous health record information and history for this patient from Dr. Urban. I have reviewed and verified the staff HPI to be accurate for this encounter. There have been no associated fever, chills, flank pain, or blood in the urine. Denies any urinary infections since last encounter. Review of Systems PHQ Score Initial [...] HPI. Physical Exam Vitals & Measurements HR: 80(Peripheral) RR: 16 BP: 134/78 HT: 59 in HT: 149 cm WT: 76.4 kg WT: 168.08 lb BMI: 34.41 General Appearance: alert , no acute distress, well nourished, well developed female. Assessment/Plan 1. Unspecified urethral stricture, female (N35.92: Unspecified urethral stricture, female) S/p Cysto/UD 10/31/09. S/p cysto/UD 07/28/23. Dilated to 30 Fr. Reports improvement in emptying since dilation. 2. Mixed incontinence (N39.46: Mixed incontinence) S/p urodynamics 07/28/23. Prior BBS 24. Took VESIcare 5mg in the past. No CHAY seen on cysto/UD 07/28/23. Posterior laxity. No true prolapse. Still wearing a panty liner, changes 1-2x daily. Leakage has improved since procedure. Does take a water pill. 3. Incontinence without sensory awareness (N39.42: Incontinence without sensory awareness) See #2. 4. Vaginal atrophy (N95.2: Postmenopausal atrophic vaginitis) Moderate atrophic vaginitis. Found recently cysto/UD 07/28/23. Had the discussion of starting estrogen cream. Discussed benefits of applying cream. Pt wishes to start. -Script sent for Estradiol cream to be applied 2x per week, pt to use plunger -Directed how to properly apply -Follow up in 6 months 5. Asymptomatic microscopic hematuria (R31.21: Asymptomatic microscopic hematuria) Hx of partial hysterectomy. Chronic. States she has had this at her gynecology appts for years. UA today shows trace-intact blood. Denies gross hematuria. Neg cysto 07/28/23. Follow-up With When Contact Information MARYAM BEAVERS, Jean Paul Burton, [address] [place] [address]- Additional Instructions: 6 months Patient Education Vaginitis Katiuska Beaver, personally scribed for Dr. Urban on 10/16/2023 11:09:42. . Documentation recorded by the scribe, Katiuska Hobbs, accurately reflects the services(s) I performed and decisions made by me. Authenticated by Dr. Urban on 10/16/2023 11:13:00. Problem List/Past Medical History Ongoing Asymptomatic microscopic hematuria Depression History of UTI Hyperlipemia Hypertension Incontinence without sensory awareness Mixed incontinence Unspecified urethral stricture, female Vaginal atrophy Historical No qualifying data Procedure/Surgical History Cystourethroscopy with dilation of urethral stricture (07/28/2023), Urodynamics (07/28/2023), Appendectomy, Colonoscopy, Hysterectomy. Medications aspirin 81 mg oral tablet, 81 mg= 1 tab(s), Oral, Daily carvedilol 25 mg Tab lisinopril, Oral, Daily nitroglycerin 0.4 mg sublingual Tab, 0.4 mg= 1 tab(s), SubLingual, q5min, PRN Pantoprazole [address] Tab, Oral, Daily rosuvastatin 40 mg Tab, Oral, Daily Allergies sulfamethoxazole (....) Social History Alcohol - Low Risk, 02/02/2019 Substance Abuse - Denies Substance Abuse, 02/02/2019 Tobacco - Denies Tobacco Use, 02/02/2019 Never (less than 100 in lifetime) Tobacco Use:. Never Smokeless Tobacco Use:. Household tobacco concerns: No. Yes, 10/16/2023 Family History Alcoholism: Sister and Brother. Renal cancer: Mother. Immunizations Vaccine Date Status influenza virus vaccine, inactivated 04/08/2023 Recorded influenza virus vaccine, inactivated 03/22/2022 Recorded SARS-CoV-2 (COVID-19) [id number] 03/22/2022 Recorded SARS-CoV-2 (COVID-19) mRNA BNT-162b2 vax 05/23/2021 Recorded influenza virus vaccine, inactivated 04/01/2021 Recorded SARS-CoV-2 (COVID-19) mRNA (more content not included)... [facility] Comment on above: Result Comment: Elec tronically Signed By: Jean Paul URBAN MD\.br\Date and Time Signed: 10/16/23 11:13 EDT\.br\Electronically Co-Signed By: Katiuska Hobbs\.br\Date and Time Co-Signed: 10/16/23 11:11 EDT Consent for Procedure/Surger yon 07-28-2023 Consent for Procedure/Surgery [id number]# 1.00TIFF [facility] Consent for Treatmenton 07-16 Consent for Treatment [id number] .00TIFF [facility] IntraOperative Documentson 0 07-28-2023 IntraOperative Documents [id number]# 1.00TIFF [facility] IntraOperative Documents [id number]# 1.00TIFF [facility] Main OR Intraoperative Recor don 07-28-2023 Main OR Intraoperative Record IntraOp Document Type FTURO Summary Primary Physician: Jean Paul URBAN MD Finalized Date/Time: 07/28/23 11:03:27 Pt. Name: PEBBLES JOHNSON/Sex: 1955 Female Med Rec #: [id number] Physician: Jean Paul URBAN MD Financial #: [id number] Pt. Type: O Room/Bed: / Admit/Disch: 07/28/23 08:21:27 - Institution: Case Times FTURO Entry 1 Patient Times In Room 07/28/23 10:50:00 Out Room 07/28/23 11:05:00 Procedure Times Start 07/28/23 10:54:00 Stop 07/28/23 11:01:00 Anesthesia Times Last Modified By: Juan C BLAKELY, JUANISOR, Genesis 07/28/23 11:01:52 Case Attendance FTURO Entry 1 Entry 2 Entry 3 Case Attendee MARYAM BEAVERS, Jean Paul Irizarry RN, CNOR, [place] PEÑA, Reina Hurtado Role Performed Surgeon - Primary Fence Post Driver - Primary Scrub - Primary Time In 07/28/23 10:50:00 07/28/23 10:50:00 07/28/23 10:50:00 Time Out 07/28/23 11:05:00 07/28/23 11:05:00 07/28/23 11:05:00 Procedure CYSTOSCOPY LOCAL WITH CYSTOSCOPY LOCAL WITH CYSTOSCOPY LOCAL WITH URETHRAL DILATION(.) URETHRAL DILATION(.) URETHRAL DILATION(.) Comments Last Modified By: Juan C RN, CNOR, Juan C BLAKELY, CNOR, Juan C BLAKELY, CNOR, Genesis 07/28/23 Genesis 07/28/23 Genesis 07/28/23 11:01:55 11:01:55 11:01:55 Surgical Procedures FTURO Entry 1 Procedure Description Procedure CYSTOSCOPY LOCAL WITH Modifiers . URETHRAL DILATION Surgeon Description CYSTO UD Primary Procedure Yes Primary Surgeon Jean Paul URBAN MD Start 07/28/23 10:54:00 Stop 07/28/23 11:01:00 Anesthesia Type Local Surgical Service Urology Wound Class 2 - Clean-Contaminated Last Modified By: Juan C BLAKELY, JUANISOR, Genesis 07/28/23 11:01:44 General Case Data FTURO Pre-Care Text: Classifies surgical wound, implements aseptic technique, initiates traffic control Entry 1 Case Information OR URO 1 FT Case Level None Wound Class 2 - Clean-Contaminated Specialty Urology Preop Diagnosis MIXED INCONTINENCE, Postop Same As Preop No HEMATURIA Postop Diagnosis urethral [id number] Outcomes Met? Yes Last Modified By: KAY [...] KAY Irizarry RN, Applicable) Belgica Hurtado CST, Kimberly A Time Out Complete 07/28/23 10:52:00 Allergies Reviewed? [...] By: KAY Irizarry RN, Ruthann 07/28/23 11:03 [facility] Main OR Preoperative Recordo n 07-28-2023 Main OR Preoperative Record Holding Area Document Type FTURO Summary Primary Physician: Jean Paul URBAN MD Finalized Date/Time: 07/28/23 10:57:37 Pt. Name: PEBBLES JOHNSON /Sex: 1955 Female Med Rec #: [id number] Physician: Jean Paul URBAN MD Financial #: [id number] Pt. Type: O Room/Bed: / Admit/Disch: 07/28/23 [...] Complaints of Pain: No Skin Integrity Intact, [place], Warm, & Dry Vitals - EU Blood Pressure 194/80 Pulse 63 bpm Respirations 18 br/min SPO2 99 % RN Reviewed Yes Last Modified By: KAY Irizarry RN, Ruthann 07/28/23 10:57:35 Finalized By: KAY Irizarry RN, Ruthann Document Signatures Signed By: Starr Villa LPN 07/28/23 10:24 KAY Irizarry RN, Ruthann 07/28/23 10:57 Normal [facility] Operative Reporton Operative Report Patient: PEBBLES JOHNSON [...] urine. The Urethra was dilated to: 30 Amharic w/ sounds. Devices Implanted: None. Removal: Cystoscope is removed, The patient tolerated it well. Postoperative Information Discharge: Patient is discharged home with antibiotic coverage, Follow up arranged. Normal [facility] Comment on above: Result Comment: Elec tronically Signed By: MARYAM BEAVERS, Jean Paul Billingsley.melissa\Date and Time Signed: 07/28/23 11:10 EST COVID + FLU Quick Testingon 07-18-2023 SARS-CoV-2 (COVID-19) RNA ALEXA+probe Ql (Unsp spec) Negative [employer] Other COVID + FLU Quick Testing Negative [employer] Other Formson 06-30-2023 Forms [id number] .00TIFF Normal [facility] Screenson 06-30-2023 Screens [id number] 1.00TIFF Normal [facility] Ambulatory Visit Summaryon 0 06-29-2023 Ambulatory Visit Summary PEBBLES JOHNSON :1955 Visit Date:06/29/2023 Ambulatory Visit Instructions Your Diagnosis Mixed incontinence Incontinence without sensory awareness Asymptomatic microscopic hematuria History of UTI Tests Performed Urnls Dip Stick Auto w/o Microscopy POC 80482 Your Care Team Attending Physician - Jean Paul URBAN MD Primary Care Physician - FARZANA RAMOS MD This Is Your Medications List [...] Schedule the Following Appointments Follow Up with MAYRAM BEAVERS, Jean Paul Burton, OLEKSANDR When: Comments: sched cysto/urodynamics Where: [facility] [address], [place] [address]- [phone] Medications What How Much When Instructions New ciprofloxacin (Cipro 500 mg Tab) 1 Tablets By Mouth Every day take one tab day before procedure and one tab after procedure Pickup at [facility] #51051 Unchanged aspirin (aspirin 81 mg oral tablet) [...] physician if questions or concerns Pharmacy Information [facility] #[id number]: [address], [place] [id number] [phone] Test Results Urnls Dip Stick Auto w/o Microscopy POC 80176 (06/29/2023) Bilirubin Urine Dipstick - Negative Blood Urine Dipstick - 1+ Small Leukocytes Urine Dipstick - Negative Nitrite Urine Dipstick - Negative Protein Urine Dipstick - Trace Specific Atkinson Urine Dipstick - >=1.030 Urine Appearance Urine [...] (more content not included)... Normal [facility] Patient Educationon 06-29-19 Patient Education Urology Urodynamic [...] including vitamins, herbs, eye drops, creams, and wqfn-rab-flqemyn medicines. ? Whether you are or may [...] results be (more content not included)... Normal [facility] Urology Office/Clinic Noteon 06-29-2023 Urology Office/Clinic Note Chief Complaint stresss incontinence HPI Staff New pt today for stress incontinence. Previously seen by PRW. Last OV 2011. Previous dx of urgency, frequency, microhematuria, [...] Contact Information MARYAM BEAVERS, Jean Paul Burton, URL [facility] [address], [place] [address] [phone] Additional Instructions: sched cysto/urodynamics Patient Education Urodynamic Testing Urinary Incontinence I, Lucia Hensley, personally scribed for Dr. Urban on 06/29/2023 11:57:37. . Documentation recorded by the hansaibe, Lucia Hensley, accurately reflects the services(s) I [...] (more content not included)... Normal [facility] Comment on above: Result Comment: Elec tronically Signed By: Jean Paul URBAN MD\.br\Date and Time Signed: 06/29/23 11:59 EST\.br\Electronically Co-Signed By: Lucia Hensley\.br\Date and Time Co-Signed: 06/29/23 11:57 EST US venous duplex LE BIon US venous duplex LE [facility] [place] [address] Ultrasound Report Signed Patient: Pebbles Johnson MR#: [id number] : 1955 Acct:[id number] Age/Sex: 68 / F ADM Date: 06/03/23 Loc: [facility] Room: Type: [facility] Attending Dr: Gucci Meyers MD Ordering Provider: [...] Gucci Meyers MD06/03/2023 12:58 PM Dictation Location: [place] [address] Tech: Sondra Longo Transcribed By: [facility] 06/03/23 1258 Dictated By: Gucci Meyers MD 06/03/23 1258 Signed By: 06/03/23 1258 [facility] XR knee LT 3V - NOT FOR ER U Danny 02-23-2023 XR knee LT 3V - NOT FOR ER USE [facility] [place] [address] XRay Report Signed Patient: Pebbles Johnson MR#: [id number] : 1955 Acct:[id number] Age/Sex: 68 / F ADM Date: 02/23/23 Loc[place] [facility] Room: Type: [facility] Attending Dr: Alex Horton DO Copies to: [...] PROCESS. Impression dictated by: Marc Mak Jr., D.O.02/23/2023 3:35 PM Dictation Location: [place] [address] Transcribed By: [facility] 02/23/23 1535 Dictated By: Marc Mak Jr, DO 02/23/23 1534 Signed By: 02/23/23 153 [facility] MG MAMM SCREEN 3D FELICIA CADon 09-24-2022 MG MAMM SCREEN 3D FELICIA CAD Patient: PEBBLES JOHNSON Exam Date: 09/24/2022 : 1955 Gender:F Ordering : DR FARZANA RAMOS M.D. Admission #: [id number] Family : Order #: [id number] CLICK HERE TO VIEW EXAM RADIOLOGY REPORT [...] kidney cancer at age 31. LOCATION: [facility] BREAST COMPOSITION: Heterogeneously dense,which may obscure small [...] M.D. on 09/24/2022 at 13:25 Normal [facility] Urinalysis - DIPSTICKon 09-13 Appearance (U) clear [employer] Other Bilirubin Ql (U) small [employer] Other Color (U) yellow [facility] Other Glucose Ql (U) Negative [employer] Other Hemoglobin Ql (U) Negative [employer] Other Ketones Ql (U) off chart [employer] Other Leukocyte esterase Test strip Ql (U) Negative [facility] Other Nitrite Ql (U) Negative [employer] Other pH (U) 5.0 [pH] [facility] Other Protein Ql (U) Negative [employer] Other Specific gravity (U) [Rel density] 1.010 [facility] Other Urobilinogen (U) [Mass/Vol] 0.2 mg/dL [facility] Other Urinalysis - DIPSTICK [facility] Other Urine Cultureon 09-24-2022 Bacteria identified Cx Nom (U) <9,000 colonies/ml mixed bacterial skin contaminants 2 Days PERFORMED BY: [place] [address] PATHOLOGIST DIRECTOR OF FINANCIAL PLANNING DARRICK GARZA M.D. Normal [facility] Comment on above: Performed By: #### C UU #### [facility] [address] LIPID PROFILEon 07-05-2022 CHOL-HDL RATIO NORM SEE BELOW Normal [facility] Comment on above: Result Comment: 3.3 - 4.4 LOW RISK 4.4 - 7.1 AVERAGE RISK 7.1 - 11.0 MODERATE RISK >11.0 HIGH RISK Performed By: #### L IPID #### [facility] [address] [place] [address] Dr. Carlos Barlow Cholesterol [Mass/Vol] 181 mg/dL Normal <=[address] [facility] Comment on above: Performed By: #### L IPID #### [facility] [address] [place] [address] [address] Carlos Barlow Cholesterol in HDL [Mass/Vol] 63 mg/dL Critically high 40-[address] [facility] Comment on above: Performed By: #### L IPID #### [facility] [address] [place] [address] [address] Carlos Barlow Cholesterol in LDL [Mass/Vol] 88.0 mg/dL Normal [facility] Comment on above: Performed By: #### L IPID #### [facility] [address] [place] [address] [address] Carlos Barlow Cholesterol.total/C holesterol in HDL [Mass ratio] 2.9 {ratio} Normal [facility] Comment on above: Performed By: #### L IPID #### [facility] [address] [place] [address] [address] Carlos Barlow HDL NORMAL > or = 60 mg/dl - LO W CARDIOVASCULAR RISK <40 mg/dl - HIGH CARDIOVASCULAR RISK Normal [facility] Comment on above: Performed By: #### L IPID #### [facility] [address] [place] [address] Dr. Carlos Barlow LDL CALC NORMAL SEE BELOW Normal [facility] Comment on above: Result Comment: <100 mg/dl OPTIMAL 100 - 129 mg/dl NEAR OR ABOVE OPTIMAL 130 - 159 mg/dl BORDERLINE HIGH 160 - 189 mg/dl HIGH >190 mg/dl VERY HIGH Performed By: #### L IPID #### [facility] [address] [place] [address] [address] Carlos Barlow Triglyceride [Mass/Vol] 150 mg/dL Normal <=150 [facility] Comment on above: Performed By: #### L IPID #### [facility] [address] [place] [address] [address] Carlos Barlow VLDL CALC 30.0 mg/dL Normal [facility] Comment on above: Performed By: #### L IPID #### [facility] [address] [place] [address] Dr. Carlos Barlow XR CHEST 1 Von 05-05-2022 XR CHEST [...] RO BONILLA Date: 2022-05-05 06:41 Normal [facility] XR NECK SOFT TISSUEon 2021 XR NECK [...] RO BONILLA Date: 2022-05-05 06:42 Normal [facility] XR LSPINE MIN 4 VIEWSon 03-15 XR [...] VICTOR HUGO CESAR Date: 2022-04-01 06:[address] [facility] LIPID PROFILEon 03-10-2022 CHOL-HDL RATIO NORM SEE BELOW Normal [facility] Comment on above: Result Comment: 3.3 - 4.4 LOW RISK 4.4 - 7.1 AVERAGE RISK 7.1 - 11.0 MODERATE RISK >11.0 HIGH RISK Performed By: #### B MP, LIPID, LIVER #### [facility] [address] [place] [address] [address] Carlos Barlow Cholesterol [Mass/Vol] 186 mg/dL Normal <=[address] [facility] Comment on above: Performed By: #### B MP, LIPID, LIVER #### [facility] [address] [place] [address] [address] Carlos Barlow Cholesterol in HDL [Mass/Vol] 61 mg/dL Critically high 40-[address] [facility] Comment on above: Performed By: #### B MP, LIPID, LIVER #### [facility] [address] [place] [address] [address] Carlos Barlow Cholesterol in LDL [Mass/Vol] 90.4 mg/dL Normal [facility] Comment on above: Performed By: #### B MP, LIPID, LIVER #### [facility] [address] [place] [address] [address] Carlos Barlow Cholesterol.total/C holesterol in HDL [Mass ratio] 3.0 {ratio} Normal [facility] Comment on above: Performed By: #### B MP, LIPID, LIVER #### [facility] [address] [place] [address] [address] Carlos Barlow HDL NORMAL > or = 60 mg/dl - LO W CARDIOVASCULAR RISK <40 mg/dl - HIGH CARDIOVASCULAR RISK Normal [facility] Comment on above: Performed By: #### B MP, LIPID, LIVER #### [facility] [address] [place] [address] Dr. Carlos Barlow LDL CALC NORMAL SEE BELOW Normal [facility] Comment on above: Result Comment: <100 mg/dl OPTIMAL 100 - 129 mg/dl NEAR OR ABOVE OPTIMAL 130 - 159 mg/dl BORDERLINE HIGH 160 - 189 mg/dl HIGH >190 mg/dl VERY HIGH Performed By: #### B MP, LIPID, LIVER #### [facility] [address] [place] [address] Dr. Carlos Barlow Triglyceride [Mass/Vol] 173 mg/dL Critically high <=150 [facility] Comment on above: Performed By: #### B MP, LIPID, LIVER #### [facility] [address] [place] [address] Dr. Carlos Barlow VLDL CALC 34.6 mg/dL Normal [facility] Comment on above: Performed By: #### B MP, LIPID, LIVER #### [facility] [address] [place] [address] [address] Carlos Barlow LIVER PROFILEon 03-10-2022 Albumin [Mass/Vol] 3.6 g/dL Normal 3.4-5.0 [facility] Comment on above: Performed By: #### B MP, LIPID, LIVER #### [facility] [address] [place] [address] [address] Carlos Barlow Albumin/Globulin [Mass ratio] 1.1 {ratio} Normal [facility] Comment on above: Performed By: #### B MP, LIPID, LIVER #### [facility] [address] [place] [address] [address] Carlos Barlow ALP [Catalytic activity/Vol] 92 U/L Normal 46-[address] [facility] Comment on above: Performed By: #### B MP, LIPID, LIVER #### [facility] [address] [place] [address] Dr. Carlos Barlow ALT [Catalytic activity/Vol] 20 U/L Normal 14-[address] [facility] Comment on above: Performed By: #### B MP, LIPID, LIVER #### [facility] [address] [place] [address] Dr. Carlos Barlow AST [Catalytic activity/Vol] 16 U/L Normal 15-[address] [facility] Comment on above: Performed By: #### B MP, LIPID, LIVER #### [facility] [address] [place] [address] Dr. Carlos Barlow BILI, CONJUGATED 0.1 mg/dL Normal 0.0-0.2 [facility] Comment on above: Performed By: #### B MP, LIPID, LIVER #### [facility] [address] [place] [address] Dr. Carlos Barlow Bilirubin [Mass/Vol] 0.3 mg/dL Normal 0.2-1.[address] [facility] Comment on above: Performed By: #### B MP, LIPID, LIVER #### [facility] [address] [place] [address] Dr. Carlos Barlow Globulin (S) [Mass/Vol] 3.4 g/dL Normal [facility] Comment on above: Performed By: #### B MP, LIPID, LIVER #### [facility] [address] [place] [address] [address] Carlos Barlow Protein [Mass/Vol] 7.0 g/dL Normal 6.4-8.2 [facility] Comment on above: Performed By: #### B MP, LIPID, LIVER #### [facility] [address] [place] [address] [address] Carlos Barlow PROF CHEM 8 (BAS METB)on Anion gap [Moles/Vol] 12.0 mmol/L Normal [facility] Comment on above: Performed By: #### B MP, LIPID, LIVER ####[facility] [address] [place] [address]Dr. Carlos Barlow Calcium [Mass/Vol] 9.6 mg/dL Normal 8.5-10.1 [facility] Comment on above: Performed By: #### B MP, LIPID, LIVER ####[facility] [address] [place] [address]Dr. Carlos Barlow Chloride [Moles/Vol] 105 mmol/L Normal 98-107 [facility] Comment on above: Performed By: #### B MP, LIPID, LIVER ####[facility] [address] [place] [address]Dr. Carlos Barlow CO2 [Moles/Vol] 26.5 mmol/L Normal 21.0-32.[address] [facility] Comment on above: Performed By: #### B MP, LIPID, LIVER ####[facility] [address] [place] [address]Dr. Carlos Barlow Creatinine [Mass/Vol] 0.89 mg/dL Normal 0.55-1.02 [facility] Comment on above: Performed By: #### B MP, LIPID, LIVER ####[facility] [address] [place] [address]Dr. Carlos Barlow EGFR-AF BRUNEIAN >60 Normal >=[address] [facility] Comment on above: Performed By: #### B MP, LIPID, LIVER ####[facility] [address] [place] [address]Dr. Carlos Barlow EGFR-NON AF BRUNEIAN >60 Normal >=[address] [facility] Comment on above: Performed By: #### B MP, LIPID, LIVER ####[facility] [address] [place] [address]Dr. Carlos Barlow Glucose [Mass/Vol] 116 mg/dL Critically high 74-106 [facility] Comment on above: Performed By: #### B MP, LIPID, LIVER ####[facility] [address] [place] [address]Dr. Carlos Barlow Potassium [Moles/Vol] 4.0 mmol/L Normal 3.5-5.[address] [facility] Comment on above: Performed By: #### B MP, LIPID, LIVER ####[facility] [address] [place] [address]Dr. Carlos Barlow Sodium [Moles/Vol] 139 mmol/L Normal 136-145 [facility] Comment on above: Performed By: #### B MP, LIPID, LIVER ####[facility] [address] [place] [address]Dr. Carlos Barlow Urea nitrogen [Mass/Vol] 24.0 mg/dL Critically high 7.0-18.[address] [facility] Comment on above: Performed By: #### B MP, LIPID, LIVER ####[facility] [address] [place] [address]Dr. Carlos Barlow Urea nitrogen/Creatinine [Mass ratio] 26.9 mg/mg Normal [facility] Comment on above: Performed By: #### B MP, LIPID, LIVER ####[facility] [address] [place] [address]Dr. Carlos Barlow CBC AUTO DIFFon 02-19-2022 BASO # 0.0 103/ul Normal 0.0-0.[address] [facility] Comment on above: Performed By: #### C BC ####[facility] [address] [place] [address]Dr. Carlos Barlow Basophils/100 WBC (Bld) 0.4 % Normal 0.2-2.[address] [facility] Comment on above: Performed By: #### C BC ####[facility] [address] [place] [address]Dr. Carlos Barlow EO # 0.2 103/ul Normal 0.0-0.7 [facility] Comment on above: Performed By: #### C BC ####[facility] [address] [place] [address]Dr. Carlos Barlow Eosinophils/100 WBC (Bld) 4.1 % Normal 0.9-7.0 [facility] Comment on above: Performed By: #### C BC ####[facility] [address] [place], [place] [address]Dr. Carlos Barlow Erythrocyte distribution width (RBC) [Ratio] 13.2 % Normal 11.0-15.[address] [facility] Comment on above: Performed By: #### C BC ####[facility] [address] [place], [place] [address]Dr. Carlos Barlow Hematocrit (Bld) [Volume fraction] 37.9 % Normal 36.0-48.[address] [facility] Comment on above: Performed By: #### C BC ####[facility] [address] [place], [place] [address]Dr. Carlos Barlow Hemoglobin (Bld) [Mass/Vol] 12.7 g/dL Normal 12.0-16.[address] [facility] Comment on above: Performed By: #### C BC ####[facility] [address] [place], [place] [address]Dr. Carlos Barlow IG # 0.02 10e3/ul Normal 0.00-0.03 [facility] Comment on above: Performed By: #### C BC ####[facility] [address] [place], [place] [address]Dr. Carlos Barlow IG % 0.4 % Normal 0.0-0.5 [facility] Comment on above: Performed By: #### C BC ####[facility] [address] [place], [place] [address]Dr. Carlos Barlow LYMPH # 0.9 103/ul Critically low 1.2-3.8 The [facility] Comment on above: Performed By: #### C BC ####[facility] [address] [place] [address]Dr. Carlos Barlow Lymphocytes/100 WBC (Bld) 17.7 % Critically low 20.5-60.[address] [facility] Comment on above: Performed By: #### C BC ####[facility] [address] [place] [address]Dr. Carlos Barlow MANUAL DIFF REQ NO Normal [facility] Comment on above: Performed By: #### C BC ####[facility] [address] [place] [phone]. Carlos Cain MCH (RBC) [Entitic mass] 28.4 pg Normal 26.7-34.0 [facility] Comment on above: Performed By: #### C BC ####[facility] [address] [place], [place] [address]Dr. Carlos Cain MCHC (RBC) [Mass/Vol] 33.5 g/dL Normal 29.9-35.2 [facility] Comment on above: Performed By: #### C BC ####[facility] [address] [place] [id number]. Carlos Barlow MCV (RBC) [Entitic vol] 84.8 fL Normal 81.0-99.0 [facility] Comment on above: Performed By: #### C BC ####[facility] [address] [place], [place] [address]Dr. Carlos Cain MONO # 0.7 103/ul Normal 0.3-0.8 [facility] Comment on above: Performed By: #### C BC ####[facility] [address] [place], [place] [address]Dr. Carlos Cain Monocytes/100 WBC (Bld) 13.4 % Critically high 1.7-12.0 [facility] Comment on above: Performed By: #### C BC ####[facility] [address] [place], [place] [address]Dr. Carlos Barlow NEUT # 3.3 103/ul Normal 1.4-6.5 [facility] Comment on above: Performed By: #### C BC ####[facility] [address] [place], [place] [address]Oo. Carlos Barlow Neutrophils/100 WBC (Bld) 64.0 % Normal 43.0-75.[address] [facility] Comment on above: Performed By: #### C BC ####[facility] [address] [place], [place] [address]Qm. Carlos Barlow Platelet mean volume (Bld) [Entitic vol] 10.5 fL Normal 9.5-13.[address] [facility] Comment on above: Performed By: #### C BC ####[facility] [address] [place] [address]Dr. Carlos Barlow PLT 252 103/ul Normal 150-[address] [facility] Comment on above: Performed By: #### C BC ####[facility] [address] [place] [address]Dr. Carlos Barlow RBC 4.47 106/ul Normal 4.20-5.40 [facility] Comment on above: Performed By: #### C BC ####[facility] [id number] [id number]. Carlos Barlow WBC 5.2 103/ul Normal 4.0-11.[address] [facility] Comment on above: Performed By: #### C BC ####[facility] [id number] [id number]. Carlos Barlow LIPID PROFILEon 02-19-2022 CHOL-HDL RATIO NORM SEE BELOW Normal [facility] Comment on above: Result Comment: 3.3 - 4.4 LOW RISK 4.4 - 7.1 AVERAGE RISK 7.1 - 11.0 MODERATE RISK >11.0 HIGH RISK Performed By: #### C MP, LIPID #### [facility] [id number] Carlos Barlow Cholesterol [Mass/Vol] 241 mg/dL Critically high <=[address] [facility] Comment on above: Performed By: #### C MP, LIPID #### [facility] [id number] Carlos Barlow Cholesterol in HDL [Mass/Vol] 51 mg/dL Normal 40-[address] [facility] Comment on above: Performed By: #### C MP, LIPID #### [facility] [address] [address] [address] Carlos Barlow Cholesterol in LDL [Mass/Vol] 133.8 mg/dL Normal [facility] Comment on above: Performed By: #### C MP, LIPID #### [facility] [address] [address] [address] Carlos Barlow Cholesterol.total/C holesterol in HDL [Mass ratio] 4.7 {ratio} Normal [facility] Comment on above: Performed By: #### C MP, LIPID #### [facility] [address] [place] [address] Dr. Carlos Barlow HDL NORMAL > or = 60 mg/dl - LO W CARDIOVASCULAR RISK <40 mg/dl - HIGH CARDIOVASCULAR RISK Normal [facility] Comment on above: Performed By: #### C MP, LIPID #### [facility] [address] [place] [address] Dr. Carlos Barlow LDL CALC NORMAL SEE BELOW Normal [facility] Comment on above: Result Comment: <100 mg/dl OPTIMAL 100 - 129 mg/dl NEAR OR ABOVE OPTIMAL 130 - 159 mg/dl BORDERLINE HIGH 160 - 189 mg/dl HIGH >190 mg/dl VERY HIGH Performed By: #### C MP, LIPID #### [facility] [address] [place] [address] Dr. Carlos Barlow Triglyceride [Mass/Vol] 281 mg/dL Critically high <=[address] [facility] Comment on above: Performed By: #### C MP, LIPID #### [facility] [address] [place] [address] Dr. Carlos Barlow VLDL CALC 56.2 mg/dL Normal [facility] Comment on above: Performed By: #### C MP, LIPID #### [facility] [address] [place] [address] Dr. Carlos Barlow PROF 14(COMP METB)on 022 Albumin [Mass/Vol] 3.3 g/dL Critically low 3.4-5.0 Th [facility] Comment on above: Performed By: #### C MP, LIPID #### [facility] [address] [address] [address] Carlos Barlow Albumin/Globulin [Mass ratio] 0.9 {ratio} Normal [facility] Comment on above: Performed By: #### C MP, LIPID #### [facility] [address] [address] [address] Carlos Barlow ALP [Catalytic activity/Vol] 96 U/L Normal 46-[address] [facility] Comment on above: Performed By: #### C MP, LIPID #### [facility] [address] [address] [address] Carlos Barlow ALT [Catalytic activity/Vol] 21 U/L Normal 14-[address] [facility] Comment on above: Performed By: #### C MP, LIPID #### [facility] [address] [place] [address] Dr. Carlos Barlow Anion gap [Moles/Vol] 7.2 mmol/L Normal [facility] Comment on above: Performed By: #### C MP, LIPID #### [facility] [address] [place] [address] Dr. Carlos Barlow AST [Catalytic activity/Vol] 14 U/L Critically low 15-[address] [facility] Comment on above: Performed By: #### C MP, LIPID #### [facility] [address] [place] [address] Dr. Carlos Barlow Bilirubin [Mass/Vol] 0.2 mg/dL Normal 0.2-1.[address] [facility] Comment on above: Performed By: #### C MP, LIPID #### [facility] [address] [address] [address] Carlos Barlow Calcium [Mass/Vol] 9.5 mg/dL Normal 8.5-10.1 [facility] Comment on above: Performed By: #### C MP, LIPID #### [facility] [address] [address] [address] Carlos Barlow Chloride [Moles/Vol] 103 mmol/L Normal 98-[address] [facility] Comment on above: Performed By: #### C MP, LIPID #### [facility] [address] [address] [address] Carlos Barlow CO2 [Moles/Vol] 32.1 mmol/L Critically high 21.0-32.[address] [facility] Comment on above: Performed By: #### C MP, LIPID #### [facility] [address] [address] [address] Carlos Barlow Creatinine [Mass/Vol] 0.80 mg/dL Normal 0.55-1.[address] [facility] Comment on above: Performed By: #### C MP, LIPID #### [facility] [address] [place] [address] Dr. Carlos Barlow EGFR-AF BRUNEIAN >60 Normal >=60 [facility] Comment on above: Performed By: #### C MP, LIPID #### [facility] [address] [place] [address] Dr. Carlos Barlow EGFR-NON AF BRUNEIAN >60 Normal >=[address] [facility] Comment on above: Performed By: #### C MP, LIPID #### [facility] [address] [place] [address] Dr. Carlos Barlow Globulin (S) [Mass/Vol] 3.5 g/dL Normal [facility] Comment on above: Performed By: #### C MP, LIPID #### [facility] [address] [place] [address] Dr. Carlos Barlow Glucose [Mass/Vol] 110 mg/dL Critically high 74-106 T [facility] Comment on above: Performed By: #### C MP, LIPID #### [facility] [address] [place] [address] Dr. Carlos Barlow Potassium [Moles/Vol] 4.3 mmol/L Normal 3.5-5.[address] [facility] Comment on above: Performed By: #### C MP, LIPID #### [facility] [address] [place] [address] Dr. Carlos Barlow Protein [Mass/Vol] 6.8 g/dL Normal 6.4-8.2 [facility] Comment on above: Performed By: #### C MP, LIPID #### [facility] [address], [place] [address] Dr. Carlos Barlow Sodium [Moles/Vol] 138 mmol/L Normal 136-145 [facility] Comment on above: Performed By: #### C MP, LIPID #### [facility] [address], [place] [address] Dr. Carlos Barlow Urea nitrogen [Mass/Vol] 15.0 mg/dL Normal 7.0-18.[address] [facility] Comment on above: Performed By: #### C MP, LIPID #### [facility] [address], [place] [address] Dr. Carlos Barlow Urea nitrogen/Creatinine [Mass ratio] 18.8 mg/mg Normal [facility] Comment on above: Performed By: #### C MP, LIPID #### [facility] [address] [place], [place] [address] Dr. Carlos Barlow Vital Signs Date Time Vital Sign Value Performing Clinician Facility 10-16-2023 10:31-0400 Blood Pressure Location Jean Paul URBAN [facility] 10-16-2023 10:31-0400 Diastolic blood pressure 78 mm[Hg] Jean Paul URBAN [facility] 10-16-2023 10:31-0400 Heart rate 80 /min Jean Paul RUBAN [facility] 10-16-2023 10:31-0400 Respiratory rate 16 /min Jean Paul URBAN [facility] 10-16-2023 10:31-0400 Systolic blood pressure 134 mm[Hg] Jean Paul URBAN [facility] 07-18-2023 10:05-0500 Body height 149.86 cm Lissa Prather Other [facility] Other 07-18-2023 10:05-0500 Body mass index (BMI) [Ratio] 33.42 kg/m2 Lissa Prather Other [facility] Other 07-18-2023 10:05-0500 Body temperature 96.2 [degF] Lissa Prather Other [facility] Other 07-18-2023 10:05-0500 Body weight 75.07 kg Lissa Prather Other [facility] Other 07-18-2023 10:05-0500 Diastolic blood pressure 81 mm[Hg] Lissa Prather Other [facility] Other 07-18-2023 10:05-0500 Respiratory rate 18 /min Lissa Prather Other [facility] Other 07-18-2023 10:05-0500 SaO2% (BldA) [Mass fraction] 96 % Lissa Prather Other [facility] Other 07-18-2023 10:05-0500 Systolic blood pressure 181 mm[Hg] Lissa Prather Other [facility] Other 06-29-2023 11:17-0500 Blood Pressure Location Jean Paul URBAN [facility] 06-29-2023 11:17-0500 Diastolic blood pressure 78 mm[Hg] Jean Paul URBAN [facility] 06-29-2023 11:17-0500 Heart rate 69 /min Jean Paul URBAN [facility] 06-29-2023 11:17-0500 Respiratory rate 16 /min Jean Paul URBAN [facility] 06-29-2023 11:17-0500 Systolic blood pressure 134 mm[Hg] Jean Paul URBAN [facility] 06-03-2023 09:00-0500 Body height 149.86 cm Marine Watson Other [facility] Other 06-03-2023 09:00-0500 Body mass index (BMI) [Ratio] 33.93 kg/m2 Marine Watson Other [facility] Other 06-03-2023 09:00-0500 Body temperature 96.7 [degF] Marine Watson Other [facility] Other 06-03-2023 09:00-0500 Body weight 76.2 kg Marine Shirley Other [facility] Other 06-03-2023 09:00-0500 Diastolic blood pressure 80 mm[Hg] Marine Watson Other [facility] Other 06-03-2023 09:00-0500 SaO2% (BldA) [Mass fraction] 96 % Marine Watson Other [facility] Other 06-03-2023 09:00-0500 Systolic blood pressure 142 mm[Hg] Marine Watson Other [facility] Other 05-05-2023 09:45-0500 Body height 149.86 cm Farzana Ramos Other [facility] Other 05-05-2023 09:45-0500 Body mass index (BMI) [Ratio] 33.93 kg/m2 Farzana Ramos Other [facility] Other 05-05-2023 09:45-0500 Body weight 76.2 kg Farzana Ramos Other [facility] Other 05-05-2023 09:45-0500 Diastolic blood pressure 76 mm[Hg] Farzana Ramos Other [facility] Other 05-05-2023 09:45-0500 Systolic blood pressure 142 mm[Hg] Farzana Ramos Other [facility] Other 04-29-2023 09:45-0500 Body height 149.86 cm Gucci Meyers Other [facility] Other 04-29-2023 09:45-0500 Body mass index (BMI) [Ratio] 34.53 kg/m2 Gucci Meyers Other [facility] Other 04-29-2023 09:45-0500 Body temperature 97.4 [degF] Gucci Meyers Other [facility] Other 04-29-2023 09:45-0500 Body weight 77.57 kg Gucci Meyers Other [facility] Other 04-29-2023 09:45-0500 Diastolic blood pressure 62 mm[Hg] Gucci Meyers Other [facility] Other 04-29-2023 09:45-0500 SaO2% (BldA) [Mass fraction] 99 % Gucci Meyers Other [facility] Other 04-29-2023 09:45-0500 Systolic blood pressure 140 mm[Hg] Gucci Lowryjair Other [facility] Other 04-09-2023 09:15-0400 Body height 149.86 cm Farzana Ramos Other [facility] Other 04-09-2023 09:15-0400 Body mass index (BMI) [Ratio] 34.53 kg/m2 Farzana Ramos Other [facility] Other 04-09-2023 09:15-0400 Body weight 77.57 kg Farzana Ramos Other [facility] Other 04-09-2023 09:15-0400 Diastolic blood pressure 78 mm[Hg] Farzana Ramos Other [facility] Other 04-09-2023 09:15-0400 Systolic blood pressure 151 mm[Hg] Farzana Ramos Other [facility] Other 03-27-2023 10:30-0400 Body height 149.86 cm Farzana Ramos Other [facility] Other 03-27-2023 10:30-0400 Body mass index (BMI) [Ratio] 35.75 kg/m2 Farzana Ramos Other [facility] Other 03-27-2023 10:30-0400 Body weight 80.29 kg Farzana Ramos Other [facility] Other 03-27-2023 10:30-0400 Diastolic blood pressure 81 mm[Hg] Farzana Ramos Other [facility] Other 03-27-2023 10:30-0400 Systolic blood pressure 147 mm[Hg] Farzana Ramos Other [facility] Other 03-11-2023 11:00-0400 Body height 149.86 cm Farzana Ramos Other [facility] Other 03-11-2023 11:00-0400 Body mass index (BMI) [Ratio] 33.73 kg/m2 Farzana Ramos Other [facility] Other 03-11-2023 11:00-0400 Body weight 75.75 kg Farzana Ramos Other [facility] Other 03-11-2023 11:00-0400 Diastolic blood pressure 66 mm[Hg] Farzana Ramos Other [facility] Other 03-11-2023 11:00-0400 Systolic blood pressure 109 mm[Hg] Farzana Ramos Other [facility] Other 11-21-2022 10:45-0400 Body height 149.86 cm Farzana Ramos Other [facility] Other 11-21-2022 10:45-0400 Body mass index (BMI) [Ratio] 33.12 kg/m2 Farzana Ramos Other [facility] Other 11-21-2022 10:45-0400 Body weight 74.39 kg Farzana Ramos Other [facility] Other 11-21-2022 10:45-0400 Diastolic blood pressure 70 mm[Hg] Farzana Ramos Other [facility] Other 11-21-2022 10:45-0400 Systolic blood pressure 112 mm[Hg] Farzana Ramos Other [facility] Other 10-14-2021 10:45-0400 Body height 149.86 cm Alex Horton Other [facility] Other 10-14-2021 10:45-0400 Body mass index (BMI) [Ratio] 33.93 kg/m2 Alex Sol Other [facility] Other 10-14-2021 10:45-0400 Body weight 76.2 kg Alex Sol Other [facility] Other 09-23-2021 11:15-0400 Body height 149.86 cm Alex Sol Other [facility] Other 09-23-2021 11:15-0400 Body mass index (BMI) [Ratio] 33.12 kg/m2 Alex Sol Other [facility] Other 09-23-2021 11:15-0400 Body weight 74.39 kg Alex Sol Other [facility] Other Encounters Encounter Date Encounter Type Care Provider Facility Start: 04-22-2024 ambulatory Jean Paul Stone ty:[facility] Start: 10-19-2023 End: 10-19-2023 ambulatory [facility] Start: 10-16-2023 End: 10-17-2023 ambulatory Jean Paul URBAN Facility: [facility] Start: 10-16-2023 End: 10-16-2023 Patient encounter procedure Jean Paul URBAN [facility] [place] Start: 07-28-2023 End: 07-29-2023 ambulatory Jean Paul URBAN Facility:[facility] Start: 07-28-2023 End: 07-28-2023 Patient encounter procedure Jean Paul URBAN [facility] Start: 07-18-2023 End: 07-18-2023 ambulatory Lissa Rossmond Other [facility] Other Start: 07-18-2023 Office outpatient vi sit 15 minutes Lissa Yamilka [facility] Start: 06-29-2023 End: 06-30-2023 ambulatory Jean Paul URBAN Facility:[facility] Start: 06-29-2023 End: 06-29-2023 Patient encounter procedure Jean Paul Burton URBAN [facility] Start: 06-03-2023 End: 06-03-2023 Patient encounter procedure Marine Barrywinnie [facility] Start: 06-03-2023 End: 06-03-2023 ambulatory NON STAFF [facility] Other Start: 05-20-2023 End: 05-20-2023 ambulatory Farzana Ramos Other [facility] Other Start: 05-20-2023 Telephone encounter Farzana Ramos [facility] Start: 05-05-2023 End: 05-05-2023 ambulatory Farzana Ramos Other [facility] Other Start: 05-05-2023 Office outpatient vi sit 15 minutes Farzana Ramos [facility] Start: 04-29-2023 End: 04-29-2023 ambulatory Gucci Meyers Other [facility] Other Start: 04-29-2023 Office outpatient ne w 30 minutes Gucci Meyers [facility] Start: 04-29-2023 Telephone encounter Gucci sexton [facility] Start: 04-21-2023 End: 04-21-2023 ambulatory Alex Horton Other [facility] Other Start: 04-21-2023 Telephone encounter [facility] Start: 04-09-2023 End: 04-09-2023 ambulatory Farzana Richard Other [facility] Other Start: 04-09-2023 Office outpatient vi sit 15 minutes Farzana Ramos [facility] Start: 03-30-2023 End: 03-30-2023 ambulatory Farzana Richard Other [facility] Other Start: 03-30-2023 Telephone encounter Farzana Ramos [facility] Start: 03-27-2023 End: 03-27-2023 ambulatory Farzana Ramos Other [facility] Other Start: 03-27-2023 Office outpatient vi sit 15 minutes Farzana Ramos [facility] Start: 03-24-2023 End: 03-24-2023 ambulatory Farzana Richard Other [facility] Other Start: 03-24-2023 Telephone encounter Farzana Richard [facility] Start: 03-23-2023 ambulatory Jean Paul URBAN Facility :[facility] Start: 03-11-2023 End: 03-11-2023 ambulatory Farzana Richard Other [facility] Other Start: 03-11-2023 Office outpatient vi sit 15 minutes Farzana Ramos [facility] Start: 02-23-2023 End: 02-23-2023 ambulatory Alex Horton [facility] Start: 02-23-2023 End: 02-23-2023 ambulatory NON STAFF [facility] Work Phone: Start: 02-23-2023 End: 02-23-2023 Patient encounter procedure [facility] Start: 02-03-2023 End: 02-03-2023 ambulatory Farzana Ramos Other [facility] Other Start: 02-03-2023 Telephone encounter Farzana Ramos [facility] Start: 11-21-2022 End: 11-21-2022 ambulatory Farzana Ramos Other [facility] Other Start: 11-21-2022 Office outpatient vi sit 15 minutes Farzana Ramos [facility] Start: 09-26-2022 End: 09-26-2022 ambulatory Farzana Ramos Other [facility] Other Start: 09-26-2022 Telephone encounter Farzana Ramos [facility] Start: 09-24-2022 Nursing evaluation o f patient and report Farzana Ramos [facility] Start: 09-24-2022 End: 09-25-[address] FARZANA RAMOS [facility] Work Phone: Start: 09-24-2022 End: 09-24-2022 Departed Referred MD Farzana Ramos Work Phone: [facility] [place] Work Phone: Start: 07-07-2022 (Televisit) Televisit Farzana De La Cruz [facility] Start: 07-07-2022 End: 07-07-2022 ambulatory Farzana Ramos Other [facility] Other Start: 07-05-2022 End: 07-06-[address] DOCTOR MCCULLOUGH Facility:[facility] Start: 05-13-2022 Adult health examination Farzana Ramos Other [facility] Other Start: 05-05-2022 End: 05-05-[address] FARZANA RAMOS Facility:[facility] Start: 04-02-2022 End: 04-02-2022 ambulatory Alex Horton Other [facility] Other Start: 04-02-2022 Office outpatient vi sit 15 minutes Alex Horton [facility] Start: 03-31-2022 End: 04-01-[address] FARZANA RAMOS Facility:[facility] Start: 03-10-2022 End: 03-11-[address] CYNTHIA BARRY Facility:[facility] Start: 02-19-2022 End: 02-20-2022 ambulatory LEVY BRAND Facility:[facility] Start: 11-13-2021 End: 11-13-2021 ambulatory Alex Horton Other [facility] Other Start: 11-13-2021 Telephone encounter Alex RAMIRES [facility] Start: 10-28-2021 End: 10-28-2021 ambulatory Alex Horton Other [facility] Other Start: 10-28-2021 Telephone encounter Alex RAMIRES [facility] Start: 10-23-2021 End: 10-23-2021 ambulatory Alex Horton Other [facility] Other Start: 10-23-2021 Telephone encounter Alex RAMIRES [facility] Start: 10-14-2021 End: 10-14-2021 ambulatory Alex Horton Other [facility] Other Start: 10-14-2021 Office outpatient vi sit 25 minutes Alex Horton [facility] Start: 09-23-2021 End: 09-23-2021 ambulatory Alex Horton Other [facility] Other Start: 09-23-2021 Office outpatient vi sit 15 minutes Alex Horton [facility] Procedures Date Procedure Procedure Detail Performing Clinician Start: 07-28-2023 Cystourethroscopy with dilation of urethral stricture Jean Paul URBAN Start: 07-28-2023 Urodynamic studies Jean Paul URBAN Start: 06-03-2023 Duplex scan of lower limb veins Start: 02-23-2023 X-ray of left knee Start: 09-13-2018 Screening for malignant neoplasm of cervix Farzana Ramos Other Start: 04-10-2015 Screening mammography Farzana Ramos Other Start: 05-16-2014 History and 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, administrative Farzana Ramos Other Appendectomy Jean Paul URBAN Colonoscopy Jean Paul URBAN History of operative procedure on knee S/P arthroscopic knee surgery MD Farzana Ramos Work Phone: Hysterectomy Jean Paul URBAN Screening for malign ant neoplasm of breast Farzana Ramos Other Plan of Treatment Date Care Activity Detail Author Start: 09-24-2022 Bacteria identified in Urine by Culture Urine Culture [facility] Immunizations Immunization Date Immunization Notes Care Provider Fa cili 04-08-2023 influenza virus vaccine, unspecified formulation Jean Paul URBAN [facility] 07-23-2022 Prevnar 20 Farzana Ramos Other [facility] Other 03-22-2022 COVID-19 Vaccine Moderna - Documentation Purposes Only Farzana Ramos Other [facility] Other 03-22-2022 influenza virus vaccine, split virus (incl. purified surface antigen) Farzana Ramos Other [facility] Other 03-22-2022 influenza virus vaccine, unspecified formulation Jean Paul URBAN [facility] 03-22-2022 SARS-CoV-2 (COVID-19 ) [id number] Jean Paul URBAN [facility] 06-05-2021 pneumococcal conjuga te vaccine, 13 valent Farzana Ramos Other [facility] Other 05-23-2021 Do not use COVID-19 Pfizer 2 dose Alex Horton Other [facility] 04-01-2021 influenza virus vaccine, unspecified formulation Q2ebanking [facility] 09-28-2020 COVID-19 Jaguar Jimenes (Pfizer) MD Farzana Ramos Work Phone: [facility] 09-18-2020 Do not use COVID-19 Pfizer 2 dose Alex Sol Other [facility] 08-28-2020 Do not use COVID-19 Pfizer 2 dose Alex Sol Other [facility] 02-29-2020 influenza virus vaccine, unspecified formulation Q2ebanking [facility] 03-25-2019 influenza virus vaccine, unspecified formulation Q2ebanking [facility] 06-28-2018 zoster vaccine recombinant Q2ebanking [facility] 03-30-2018 zoster vaccine recombinant Q2ebanking [facility] 03-09-2018 influenza virus vaccine, split virus (incl. purified surface antigen) Farzana Ramos Other [facility] Other 03-09-2018 influenza virus vaccine, unspecified formulation Q2ebanking [facility] 02-29-2016 tetanus and diphther ia toxoids, adsorbed, preservative free, for adult use (5 Lf of tetanus toxoid and 2 Lf of diphtheria toxoid) Farzana Ramos Other [facility] Other 04-09-2015 influenza virus vaccine, unspecified formulation Q2ebanking [facility] 04-09-2015 tetanus and diphther ia toxoids, adsorbed, preservative free, for adult use (5 Lf of tetanus toxoid and 2 Lf of diphtheria toxoid) Farzana Ramos Other [facility] Other Payers Date Payer Category Payer Unknown [id number] 1955 Unknown [id number] 2.16.84 [id number] 1955 Unknown [id number] 2.16.84 [id number] 1955 Unknown [id number] 2.16.84 [id number] 1955 Unknown [id number] 2.16.84 [id number] 1955 Unknown [id number] 2.16.84 [id number] 1955 Unknown [id number] 2.16.84 [id number] 1955 Unknown [id number] 2.16.8 [id number] 1955 Unknown [id number] 2.16.8 [id number] 1955 Unknown [id number] 2.16.8 [id number] 1955 Unknown [id number] 2.16.8 [id number] Self-pay Self Pay [id number] Unknown [facility] [id number] Social History Date Type Detail Facility Unknown if ever smoked [facility] Other Sex Assigned At [facility] Start: 10-22-2021 End: 10-16-2023 Tobacco smoking status NHIS Never smoked tobacco (finding) [facility] Start: 1955 Sex Assigned At Female F [facility] Tobacco smoking status Never [facility] Functional Status Date Assessment Result Facility 10-16-2023 Functional Status N/A [facility] 07-28-2023 Functional Status N/A [facility] 06-29-2023 Functional Status N/A [facility] Clinical Notes 09-23-2021 to 10-19-2023 Note Date & Type Note Facility 10-19-2023 Note [facility] Note Chief Complaint: Patient here for 1 year follow up hypertension and hyperlipidemia. Denies chest pain, SOB, and LE edema. Says she's doing well from cardiac standpoint. PCP stopped chlorthalidone back in Feb 2023. HPI: Pebbles Johnson is a 68 y.o. female with hypertension and hyperlipidemia seen in follow-up. Last seen by Dr. Cartagena in 02/2022 for BP management. BP is well controlled with medication changes, she reports dizziness with bending but otherwise doing well from a cardiac standpoint. She is not checking her blood pressure at home She has no cardiovascular symptoms Cardiology ROS: Review of Systems All other systems reviewed and are negative. Past Medical History She has a past medical history of Bipolar 1 disorder (CMS/[facility]), Hyperlipidemia, and Hypertension. Surgical History She has a past surgical history that includes Appendectomy; section, classic; Hemorrhoid surgery; and Hysterectomy. Social History She reports that she has never smoked. She has never used smokeless tobacco. She reports current alcohol use. No history on file for drug use. Family History Family History Problem Relation Name Age of Onset Cancer Other Coronary artery disease Other Depression Other Allergies Sulfa (sulfonamide antibiotics) Medications Current Outpatient Medications: aspirin 81 mg EC tablet, in the morning., Disp: , Rfl: carvedilol (Coreg) 25 mg tablet, TAKE 1 TABLET BY MOUTH EVERY DAY WITH BREAKFAST AND 1 WITH EVENING MEAL, Disp: 180 tablet, Rfl: 3 chlorthalidone (Hygroton) 25 mg tablet, Take 1 tablet (25 mg) by mouth once daily as directed., Disp: 90 tablet, Rfl: 3 lisinopril 40 mg tablet, Take 1 tablet (40 mg) by mouth in the morning., Disp: 90 tablet, Rfl: 3 meloxicam (Mobic) 15 mg tablet, Take 15 mg by mouth in the morning., Disp: , Rfl: nitroglycerin (Nitrostat) 0.4 mg SL tablet, nitroglycerin 0.[address] 1 tablet as needed by sublingual route for 30 days., Disp: , Rfl: pantoprazole (ProtoNix) 40 mg EC tablet, pantoprazole 40 mg tablet,delayed release TAKE 1 TABLET BY MOUTH EVERY DAY, Disp: 90 tablet, Rfl: 3 rosuvastatin (Crestor) 40 mg tablet, Take 1 tablet by mouth daily in the evening, Disp: 30 tablet, Rfl: 11 Last Recorded Vitals BP 166/82 (BP Location: Left arm, Patient Position: Sitting) Pulse 64 Ht 1.499 m (4' 11 ) Wt 76.2 kg (168 lb) SpO2 96% BMI 33.93 kg/m??? Physical Examination: GENERAL: alert and oriented x3, well developed, in no acute distress. HEAD: atraumatic, normocephalic. EYES: ALBINA, EOMI. NECK: trachea midline, no JVD present, no carotid bruits present. CARDIAC: S1, S2 present. RRR. No murmur, rubs, or gallops. RESPIRATORY: CTAB, no increased effort of breathing, no rales, rhonchi, or wheezing. ABDOMEN: soft, nontender, nondistended. EXTREMITIES: no lower extremity edema, peripheral pulses are 2+ bilaterally. No rash/skin discoloration present. NEURO: strength/sensation equal and symmetric in bilateral upper and lower extremities. PSYCH: appropriate mood, affect, and judgement. Recent Labs 02/20/2022 Hemoglobin: 12.7; hematocrit 37.9; [...] Future Essential hypertension Dyspnea on exertion Plan Will reinstitute a diuretic in the form of hydrochlorothiazide 25 mg daily Will repeat a CMP and fasting lipid profile 1 week later She is to continue the remainder of her medical therapy including aspirin, Coreg, lisinopril and Crestor; if her lipid profile is uncontrolled, may consider addition of Zetia or a PCSK9 inhibitor She is to monitor her blood pressure and heart rate at home and let us know of any significant fluctuations Return to clinic in 1 year or sooner should problems arise Cynthia Barry MD, MPH, FACC, [facility], [facility] Interventional Cardiology Pager Email: [email or web address] 10-16-2023 Hospital Discharge instructions Patient Education 10/16/2023 11:09:24 Vaginitis Vaginitis Vaginitis is a condition in which the vaginal tissue swells and becomes irritated. This condition is most often caused by a change in the normal balance of bacteria and yeast that live in the vagina. This change causes an overgrowth of certain bacteria or yeast, which causes the inflammation. There are different types of vaginitis. What are the causes? The cause of this condition depends on the type of vaginitis. It can be caused by: Bacteria (bacterial vaginosis). Yeast, which is a fungus (candidiasis). A parasite (trichomoniasis vaginitis). A virus (viral vaginitis). Low hormone levels (atrophic vaginitis). Low hormone levels can occur during , , or after menopause. Irritants, such as bubble baths, scented tampons, and feminine sprays (allergic vaginitis). Other factors can change the normal balance of the yeast and bacteria that live in the vagina. These include: Antibiotic medicines. Poor hygiene. Diaphragms, vaginal sponges, spermicides, control pills, and intrauterine devices (IUDs). Sex. Infection. Uncontrolled diabetes. A weakened body defense system (immune system). What increases the risk? This condition is more likely to develop in women who: Smoke or are exposed to secondhand smoke. Use vaginal douches, scented tampons, or scented sanitary pads. Wear tight-fitting pants or thong underwear. Use oral control pills or an IUD. Have sex without a condom or have multiple partners. Have an STI. Frequently use the spermicide nonoxynol-9. Eat lots of foods high in sugar or who have uncontrolled diabetes. Have low estrogen levels. Have a weakened immune system from an immune disorder or medical treatment. Are or . What are the signs or symptoms? Symptoms vary depending on the cause of the vaginitis. Common symptoms include: Abnormal vaginal discharge. ?The discharge is white, patel, or yellow with bacterial vaginosis. ?The discharge is thick, white, and cheesy with a yeast infection. ?The discharge is frothy and yellow or greenish with trichomoniasis. A bad vaginal smell. The smell is fishy with bacterial vaginosis. Vaginal itching, pain, or swelling. Pain with sex. Pain or burning when urinating. Sometimes there are no symptoms. How is this diagnosed? This condition is diagnosed based on your symptoms and medical history. A physical exam, including a pelvic exam, will also be done. You may also have other tests, including: Tests to determine the pH level (acidity or alkalinity) of your vagina. A whiff test to assess the odor that results when a sample of your vaginal discharge is mixed with a potassium hydroxide solution. Tests of vaginal fluid. A sample will be examined under a microscope. How is this treated? Treatment varies depending on the type of vaginitis you have. Your treatment may include: Antibiotic creams or pills to treat bacterial vaginosis and trichomoniasis. Antifungal medicines, such as vaginal creams or suppositories, to treat a yeast infection. Medicine to ease discomfort if you have viral vaginitis. Your sexual partner should also be treated. Estrogen delivered in a cream, pill, suppository, or vaginal ring to treat atrophic vaginitis. If vaginal dryness occurs, lubricants and moisturizing creams may help. You may need to avoid scented soaps, sprays, or douches. Stopping use of a product that is causing allergic vaginitis and then using a vaginal cream to treat the symptoms. Follow these instructions at home: Lifestyle Keep your genital area clean and dry. Avoid soap, and only rinse the area with water. Do not douche or use tampons until your health care provider says it is okay. Use sanitary pads, if needed. Do not have sex until your health care provider approves. When you can return to sex, practice safe sex and use condoms. Wipe from front to back. This avoids the spread of bacteria from the rectum to the vagina. General instructions Take ovzk-yyq-cdjjdjc and prescription medicines only as told by your health care provider. If you were prescribed an antibiotic medicine, take or use it as told by your health care provider. Do not stop taking or using the antibiotic even if you start to feel better. Keep all follow-up visits. This is important. How is this prevented? Use mild, unscented products. Do not use things that can irritate the vagina, such as fabric softeners. Avoid the following products if they are scented: ?Feminine sprays. ?Detergents. ?Tampons. ?Feminine hygiene products. ?Soaps or bubble baths. Let air reach your genital area. To do this: ?Wear cotton underwear to reduce moisture buildup. ?Avoid wearing underwear while you sleep. ?Avoid wearing tight pants and underwear or nylons without a cotton panel. ?Avoid wearing thong underwear. Take off any wet clothing, such as bathing suits, as soon as possible. Practice safe sex and use condoms. Contact a health care provider if: You have abdominal or pelvic pain. You have a fever or chills. You have symptoms that last for more than 2 3 days. Get help right away if: You have a fever and your symptoms suddenly get worse. Summary Vaginitis is a condition in which the vaginal tissue becomes inflamed.This condition is most often caused by a change in the normal balance of bacteria and yeast that live in the vagina. Treatment varies depending on the type of vaginitis you have. Do not douche, use tampons, or have sex until your health care provider approves. When you can return to sex, practice safe sex and use condoms. This information is not intended to replace advice given to you by your health care provider. Make sure you discuss any questions you have with your health care provider. Document Revised: 11/29/2020 Document Reviewed: 11/29/2020 [employer]bolt Patient Education 2022 [employer]. Follow Up Care 07/28/2023 11:08:09 With:MARYAM BEAVERS, Jean Paul Burton, URL Address: [address] [place] [address] [place] [address]- When: Unknown [facility] 07-28-2023 Note [id number] [facility] 07-28-2023 Hospital Discharge instructions Patient Education 07/28/2023 11:01:31 EU - [...] Paul URBAN Address: [facility] [address] [place] [address]- Business (1) When:10/26/2023 11:01:17 [facility] 07-28-2023 Note Custom Cystoscopy with Urethral [...] a fever over 100 degrees [facility] 07-18-2023 Evaluation note Encounter Date Diagnosis Assessment Notes Jul, Contact with and (suspected) exposure to covid-19 (ICD-10 - Z20.822) Jul, Viral URI (ICD-10 - J06.9) Drink plenty of fluids, get plenty of rest. Take Tylenol or Motrin as needed for aches pains or fevers. Follow-up with your family physician if no improvement in 2 to 3 days [facility] Other 01-15-2024 Hospital Discharge instructions Patient Education [...] including vitamins, herbs, eye drops, creams, and wlnk-bai-fzwcikv medicines. ?Whether you are or may be [...] provider. Document Revised: 02/12/2022 Document Reviewed: 01/04/2021 [employer]bolt Patient Education 2022 [employer]. 06/29/2023 11:52:01 Urinary Incontinence Urinary Incontinence Urinary [...] (electrical nerve stimulation). ?For women, using a medical van driver to prevent urine leaks. This is a [...] right after experiencing incontinence. General instructions Take uuss-wed-xfungcg and prescription medicines only as told by [...] important. Where to find more information National [place] of Diabetes and Digestive and Kidney Diseases: www.niddk.nih.gov [employer]: www.urologyhealth.org Contact a health care [...] provider. Document Revised: 01/04/2021 Document Reviewed: 01/04/2021 [employer]bolt Patient Education 2022 [employer]. Follow Up Care 03/23/2023 10:22:20 With:MARYAM BEAVERS, Jean Paul Burton, URL Address: [facility] [address] , [place] [address] [phone] When: Unknown Comments:sched cysto/urodynamics [facility] 12-20-2023 Evaluation note* Encounter Date Diagnosis Assessment [...] Edema of right ankle (ICD-10 - M25.471) [facility] Other 12-06-2023 Evaluation note* Encounter Date Diagnosis Assessment Notes Treatment Notes Treatment Clinical Notes May, Lumbar radiculopathy (ICD-10 - M54.16) [facility] Other 11-21-2023 Evaluation note* Encounter Date Diagnosis Assessment Notes Treatment Notes Treatment Clinical Notes Apr, Lumbar pain (ICD-10 - M54.50) Continue followup w chiropractor in 1 hr. XR order given. Discussed potential referral to pain management if needed. Will call w update. Taking motrin tid for pain. [facility] Other 11-15-2023 Evaluation note* Encounter Date Diagnosis [...] few weeks to go over the results. [facility] Other 10-26-2023 Evaluation note* Encounter Date Diagnosis Assessment Notes Treatment Notes Treatment Clinical Notes Mar, Anxiety, generalized (ICD-10 - F41.1) Skin exam normal. Suspect her anxiety is causing the itching sensation. Discussed medication and counseling. Followup in 1 month. [facility] Other 10-13-2023 Evaluation note* Encounter Date Diagnosis Assessment Notes Treatment Notes Treatment Clinical Notes Mar, Right ankle swelling (ICD-10 - M25.471) Discussed importance to r/o DVT. Consider referral based on US results. [facility] Other 09-27-2023 Evaluation note* Encounter Date Diagnosis Assessment Notes Treatment Notes Treatment Clinical Notes Feb, Essential hypertension (ICD-10 - I10) Discussed low bp today and how this can be linked to her symptoms of lightheadedness. Will hold chlorthalidone. Check bp daily. Call with readings. Followup in 1 month. [facility] Other 06-09-2023 Evaluation note* Encounter Date Diagnosis Assessment Notes Treatment Notes Treatment Clinical Notes Nov, Pruritus (ICD-10 - L29.9) Med could relieve itching and help her sleep Nov, Situational anxiety (ICD-10 - F41.8) Discussed medications and stress relief. Continue present chronic medications. [facility] Other 04-12-2023 Evaluation note* Encounter Date Diagnosis Assessment Notes Treatment Notes Treatment Clinical Notes Sep, Dysuria (ICD-10 - R30.0) [facility] Other 01-23-2023 Evaluation note* Encounter Date Diagnosis Assessment Notes Treatment Notes Treatment Clinical Notes Jun, Allergic cough (ICD-10 - R05.8) Discussed symptom management with Coricidin and Claritin. Call if fevers or shortness of breath occurs. Discussed masking at work for her own wellness as well as her coworkers and customers. [facility] Other 10-19-2022 Evaluation note* Encounter Date Diagnosis Assessment Notes [...] get an MRI of the lumbar spine [facility] Other 10-18-2022 NotePROCEDURE: XR HIP LT 2 3V W PELVIS HISTORY: Left side sciatica ; low back and left hip pain for 2 weeks COMPARISON: None. FINDINGS: BONES:No fracture, acute abnormality, or significant arthropathy. SOFT TISSUES:No visible soft tissue swelling. EFFUSION:None visible. OTHER: Negative. IMPRESSION: 1. No acute bone abnormality or significant degenerative joint disease. Electronically authenticated by: VICTOR HUGO CESAR Date: 2022-04-01 06:49[facility]06-01-2022 Evaluation note* Encounter Date Diagnosis Assessment Notes Treatment Notes Treatment Clinical Notes Nov, Other specified postprocedural states (ICD-10 - Z98.890) [facility] Other 05-16-2022 Evaluation note* Encounter Date Diagnosis Assessment Notes Treatment Notes Treatment Clinical Notes October, Primary osteoarthritis of left knee (ICD-10 - M17.12) [facility] Other 05-02-2022 Evaluation note* Encounter Date Diagnosis [...] healing. 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 I have [...] follow-up after this for further treatment options. [facility] Other 04-11-2022 Evaluation note* Encounter Date Diagnosis [...] follow-up after this for further treatment options. [facility] Other Evaluation + Plan note Future Appointments Appointment Date:07/28/2023 09:00:00 AM Scheduled Provider: Location:[facility] Appointment Type:Urology FT Appointment Date:07/28/2023 10:15:00 AM Scheduled Provider: Location:[facility] Appointment Type:Urology FT [facility] evaluation + Plan note Future Appointments Appointment Date:10/16/2023 10:30:00 AM Scheduled Provider:Jean Paul URBAN MD Location:[facility] Future App[facility]ments Appointment Date:04/22/2024 09:45:00 AM Scheduled Provider:Jean Paul URBAN MD Location:[facility] Appointment Type:URO Office Visit [facility] evaluation noteNo [employer] Other Evaluation noteNo assessment information available [facility] Work Phone: [facility] general Narrative - Reported* Type Description Date Medical History Benign essential HTN Medical History Hypercholesterolemia Surgical History colonoscopy Surgical History partial hysterectomy Hospitalization History see above [facility] Other [facility]ish[facility] general Narrative - Reported* Type Description Date [...] knee surgery 10/2021 Hospitalization History see above [facility] Other Hospital course Narrative No data available for this section [facility] progress note No data available for this section [facility] clickTRUE reason for visit NarrativeLOWER BACK - REFERRAL FOR [employer] Other Family History No Family History Records Found [...] Advance Directives No July 08, 2020 6:33pm Summary Purpose Reason for Referral Reason lumbar pain Diagnosis 1 Lumbar radiculopathy (M54.16) Referral Organization [facility] Referring Provider First Name Farzana Referring Provider Last Name Richard Referring Provider Specialty [facility] Berry Kitchen Referred Organization [facility] Referred Address [address], [place],[address] Referred Provider Specialty Pain Medicin e Referral Priority Routine Reason *Waiting for appt swelling and varicosities Diagnosis 1 Right ankle swelling (M25.471) Referral Organization [facility] Referring Provider First Name Farzana Referring Provider Last Name Richard Referring Provider Specialty [facility] cine Referred Organization [facility] Vascular Surge ry Referred Provider Gucci Meyers Referred Address [address] [facility] [address],[place], [place],[address] Referred Provider Specialty Vascular Navjot soledad Referral [...] legs at 8:00amlumbar xrCOUGH, CONGESTION, COVID EXPOSURE Care Teams (unrecognized sec tion and content) [...] be documented in a n alternate section INFORMATION SOURCE (unrecogn ized section and content) DATE CREATED AUTHOR 09/30/2022 [facility] DATE CREATED AUTHOR AUTHOR'S ORGANIZ ATION 06/04/2023 [facility] DATE CREATED AUTHOR AUTHOR'S ORGANIZ ATION 10/17/2023 [facility] DATE CREATED AUTHOR AUTHOR'S ORGANIZ ATION 11/12/2023 [facility] FOR RECORDS PERTAINING TO PATIENTS WHO ARE [...] BE BASED ON THE PRIMARY CLINICAL RECORDS. [employer] provides no warranty or guarantee of the accuracy or completeness of information in this document.
[2024-02-01] VITALS (33 sets, daily range): BP systolic 109–182; BP diastolic 68–95; PULSE 59–88; TEMP 36.5–36.6; O2SAT 94–97; BMI 34.7
--- NOTE | 2024-02-01 00:06 | XR_ITS ---
The [address] [address] Patient Name: PEBBLES PEREYRA MRN: [id number] date: 1955 Sex: F Assigned Patient Location: ER Current Patient Location: ED.MAIN Accession/Order Number: [id number] Exam Date: 02/01/2024 00:30 Report Date: 02/01/2024 03:23 At the request of: ORLANDO NGUYEN Procedure: XR chest 1V EXAM: XR chest 1V HISTORY: Chest pain COMPARISON: Chest radiograph dated 05/05/2022. TECHNIQUE: One view of the chest was obtained. FINDINGS: The cardiac silhouette is normal in size. The lungs are clear. There is no significant pneumothorax or pleural effusion. No acute osseous abnormality is seen. XR/XR chest 1V IMPRESSION: 1. No acute cardiopulmonary abnormality. Electronically authenticated by: Stevie AGUILERA Date: 02/01/2024 03:23
--- NOTE | 2024-02-01 00:06 | ECG_ITS ---
The 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
--- NOTE | 2024-02-01 00:06 | ED.CHESTPAI1 ---
HPI - Chest Pain General Chief Complaint: Chest Pain Stated Complaint: CHEST PAIN Time Seen by Provider: 02/01/24 00:00 Source: patient Mode of arrival: walk-in History of Present Illness HPI narrative: 69-year-old female presents for chest pain. It started 30 minutes prior to arrival when she was just laying down, she was not doing anything exertional. It feels like a pressure and it does not seem to radiate. No back pain or shortness of breath. She has not had a fever or vomiting. She has a history of hypertension and high cholesterol but no history of CAD. Symptom has been continuous. Related Data Home Medications ?Medication ?Instructions ?Recorded ?Confirmed carvedilol 25 mg tablet 25 mg PO DAILY 12/29/22 06/24/23 lisinopril 40 mg tablet 40 mg PO DAILY 12/29/22 06/24/23 pantoprazole 40 mg tablet,delayed 40 mg PO DAILY 12/29/22 06/24/23 release rosuvastatin 40 mg tablet 40 mg PO DAILY 12/29/22 06/24/23 aspirin 81 mg tablet,delayed 81 mg PO DAILY 06/24/23 06/24/23 release (Adult Aspirin Regimen) escitalopram oxalate 10 mg tablet 10 mg PO DAILY 06/24/23 06/24/23 Allergies Allergy/AdvReac Type Severity Reaction Status Date / Time Sulfa (Sulfonamide Allergy Mild Rash Verified 12/29/22 04:17 Antibiotics) Review of Systems ROS Narrative A ten point review of systems is negative except as noted above. PFSH PFSH Medical History (Updated 02/01/24 @ 01:50 by Padilla Pillai MD) Heartburn ?R12 - Heartburn (ICD-10) High cholesterol ?E78.00 - Pure hypercholesterolemia, unspecified (ICD-10) HTN (hypertension) ?I10 - Essential (primary) hypertension (ICD-10) Surgical History (Updated 06/24/23 @ 10:35 by Nila Arnold RN) History of arthroscopic knee surgery ?Z98.890 - Other specified postprocedural states (ICD-10) History of cardiac cath ?Z98.890 - Other specified postprocedural states (ICD-10) Social History Smoking status: Never smoker Exam Narrative Exam Narrative: Nurses note and vital signs reviewed and patient is not hypoxic. General: The patient appears well and in no apparent distress. Patient is resting comfortably on cart. Skin: Warm, dry, no pallor noted. There is no rash noted. Head: Normocephalic, atraumatic Eye: Normal conjunctiva, no drainage Ears, Nose, Mouth, and Throat: oral mucosa is moist. Nares patent. Cardiovascular: Regular Rate and Rhythm Respiratory: Patient is in no distress, no accessory muscle use, lungs are clear to auscultation, no wheezing, rales or rhonchi Back: non-tender GI: Soft and not tender Musculoskeletal: The patient has no evidence of calf tenderness, no pitting edema, symmetrical pulses noted bilaterally Neurological: A&O, normal speech Psychiatric: Cooperative Constitutional Vital Signs, click to edit/add: Last Vital Signs Temp 98.1 F 01/31/24 23:57 Pulse 76 01/31/24 23:57 Resp 16 01/31/24 23:57 BP 137/89 02/01/24 00:27 Pulse Ox 96 02/01/24 00:04 O2 Del Method Room Air 02/01/24 00:04 Course Vital Signs Vital signs: Vital Signs Temperature 98.1 F 01/31/24 23:57 Pulse Rate 76 01/31/24 23:57 Respiratory Rate 16 01/31/24 23:57 Blood Pressure 182/79 H 01/31/24 23:57 Pulse Oximetry 95 01/31/24 23:57 Oxygen Delivery Method Room Air 01/31/24 23:57 Temperature 98.1 F 01/31/24 23:57 Pulse Rate 76 01/31/24 23:57 Respiratory Rate 16 01/31/24 23:57 Blood Pressure 137/89 02/01/24 00:27 Pulse Oximetry 96 02/01/24 00:04 Oxygen Delivery Method Room Air 02/01/24 00:04 MDM - Chest Pain MDM Narrative Medical decision making narrative: Her symptoms are concerning and resolved with nitroglycerin. 2 sets of troponin are negative and should be admitted for observation. Findings are discussed with the patient. She is being admitted for observation. Differential Diagnosis Differential diagnosis: Likely pneumothorax, unstable angina pectoris, atypical chest pain, st elevation myocardial infarction and chest pain Lab Data Attestation: I reviewed the patient's lab results. Labs: Lab Results 02/01/24 02/01/24 Range/Units 00:15 01:21 WBC 6.2 (4.0-11.0) 10^3/uL RBC 4.65 (4.20-5.40) 10^6/uL Hgb 12.7 (12.0-16.0) g/dL Hct 38.8 (36.0-48.0) % MCV 83.4 (81.0-99.0) fL MCH 27.3 (26.7-34.0) pg MCHC 32.7 (29.9-35.2) g/dL RDW 14.5 (11.0-15.0) % Plt Count 211 (150-450) 10^3/uL MPV 9.5 (9.5-13.5) fL Neut % (Auto) 60.4 (43.0-75.0) % Lymph % (Auto) 22.2 (20.5-60.0) % [place] % (Auto) 11.7 (1.7-12.0) % Eos % (Auto) 5.0 (0.9-7.0) % Baso % (Auto) 0.2 (0.2-2.0) % Neut # (Auto) 3.7 (1.4-6.5) 10^3/uL Lymph # (Auto) 1.4 (1.2-3.8) 10^3/uL [place] # (Auto) 0.7 (0.3-0.8) 10^3/uL Eos # (Auto) 0.3 (0.0-0.7) 10^3/uL Baso # (Auto) 0.0 (0.0-0.1) 10^3/uL Abs Immat Gran (auto) 0.03 (0.00-0.03) 10^3/uL Imm/Tot Granulo (auto) 0.5 (0.0-0.5) % Sodium 137 (136-145) mmol/L Potassium 3.4 L (3.5-5.1) mmol/L Chloride 102 (98-107) mmol/L Carbon Dioxide 28.7 (21.0-32.0) mmol/L Anion Gap 9.7 BUN 18.0 (7.0-18.0) mg/dL Creatinine 1.05 H (0.55-1.02) mg/dL Est GFR ( Amer) >60 (>=60) Est GFR (Non-Af Amer) 52 L (>=60) BUN/Creatinine Ratio 17.1 Glucose 119 H (74-106) mg/dL Calcium 9.3 (8.5-10.1) mg/dL Troponin I High Sens 4.3 7.1 (4.0-51.3) pg/mL ECG Data Attestation: I personally reviewed and interpreted this ECG as follows: (EKG on my interpretation shows normal sinus rhythm with a rate of 75 and no acute change.) Heart Score History: Highly Suspicious ECG: NS Repolarization Age: >65 years Risk Factors: 1 or 2 Risk Factors Troponin: <Normal Limit Total Heart Score Recommendations & Risks:: 6 Discharge Plan Discharge Chief Complaint: Chest Pain Clinical Impression: Chest pain Patient Disposition: Admitted as Observation Time of Disposition Decision: 01:49 Condition: Good
[2024-02-01] MEDS: ASPIRIN 81 MG TAB.CHEW 324 MG PO (00:21)
[2024-02-01] MEDS: NITROGLYCERIN 0.4 MG BOTTLE SL (00:22)
[2024-02-01 00:23] LABS: Basophils Percent Auto 0.2 % (0.2-2.0); Eosinophils Absolute Auto 0.3 10^3/uL (0.0-0.7); Hematocrit 38.8 % (36.0-48.0); Hemoglobin 12.7 g/dL (12.0-16.0); Immature Granulocytes Abs Auto 0.03 10^3/uL (0.00-0.03); Immature Granulocytes Pct Auto 0.5 % (0.0-0.5); Lymphocytes Absolute Auto 1.4 10^3/uL (1.2-3.8); Lymphocytes Percent Auto 22.2 % (20.5-60.0); Mean Corpuscular HGB Conc 32.7 g/dL (29.9-35.2); Mean Corpuscular Hemoglobin 27.3 pg (26.7-34.0); Mean Corpuscular Volume 83.4 fL (81.0-99.0); Mean Platelet Volume 9.5 fL (9.5-13.5); Monocytes Absolute Auto 0.7 10^3/uL (0.3-0.8); Monocytes Percent Auto 11.7 % (1.7-12.0); Neutrophils Absolute Auto 3.7 10^3/uL (1.4-6.5); Neutrophils Percent Auto 60.4 % (43.0-75.0); Platelet Count 211 10^3/uL (150-450); Red Blood Count 4.65 10^6/uL (4.20-5.40); Red Cell Distribution Width 14.5 % (11.0-15.0); White Blood Count 6.2 10^3/uL (4.0-11.0)
--- NOTE | 2024-02-01 00:24 | PC.NURSE ---
prior to [facility]
[2024-02-01 00:52] LABS: Anion Gap 9.7; BUN Creatinine Ratio 17.1; Calcium 9.3 mg/dL (8.5-10.1); Carbon Dioxide 28.7 mmol/L (21.0-32.0); Chloride 102 mmol/L (98-107); Estimated GFR (African America >60 (>=60); Estimated GFR (Non-African Ame 52 (>=60); Glucose 119 mg/dL (74-106); Potassium 3.4 mmol/L (3.5-5.1); Sodium 137 mmol/L (136-145); Troponin I High Sensitivity 4.3 pg/mL (4.0-51.3)
[2024-02-01 01:43] LABS: Troponin I High Sensitivity 7.1 pg/mL (4.0-51.3)
--- OUTSIDE RECORDS SUMMARY | 2024-02-01 03:29 | XMS_ITS | CCD ---
Author Organization [facility] Care Team Providers Care Production Engineer Name Role Phone Alex Horton Unavailable Farzana Ramos Unavailable MD Farzana Ramos Attending Provider RICHARD, DR FARZANA Simth Admitting Unavailable RAMOS, DR FARZANA Smith Attending [...] Care Provider UnavailDO Alex Key Attending Provider [phone] Gucci Meyers Unavailable Marine Watson Unavailable NON [...] Facility (17 sources) Sulf-10 Drug allergy Unknown [employer] Other (4 sources) Sulfonamides (Antibiotic); Translations: [SULFA (SULFONAMIDE ANTIBIOTICS)] Allergy to substance 06-02-20 14 Rash [facility] (3 sources) steriod Propensity to adverse reactions 10-17-19 22 Redness of Skin [facility] (1 source) Sulfonamides (Antibiotic) Drug allergy (disorder) 01-10-20 13 [facility] Repository (7 sources) HMG-CoA reductase inhibitor Drug allergy 08-27-19 14 Unknown [employer] Other (12 sources) Penicillin Drug Allergy 07-11-19 17 Unknown [employer] Other (3 sources) Allergies Reconciled Propensity to adverse reactions 04-30-20 21 Unknown [employer] Other (13 sources) Substance with sulfonamide structure and antibacterial mechanism of action (substance) Drug allergy 10-19-19 19 Unknown [employer] Other (3 sources) patient allergy list reviewed by nurse or physicia Propensity to adverse reactions 11-11-19 19 Comment:Done [employer] Other (7 sources) Statins Depletion *DIETARY PRODUCTS/DIETARY 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 [facility] Medications Current Medications Medication Drug Class(es) Dates [...] Also pply around outer urethra with finger., [facility], 149, cm, 10/16/23 10:35:00 EDT, Height/Length [...] procedure, # 2 tab(s), Refills(s) 0, Pharmacy: [facility], 150, cm, 06/29/23 11:34:00 EST, Height/Length [...] Her - as directed Orally Active nystatin 867341 unt/ml topical cream (11 sources) Polyene Antifungal Nystatin 1000 00 UNIT/GM 1 application Externally Twice a day for 10 days Not-Taking/PRN Nystatin 171755 UNIT/GM 1 application Externally Twice a day for 10 days Active PEG 3350-KCl-Na Bicarb-NaCl (1 source) PEG 3350-KCl-Na Bicarb-NaCl Not-Taking traMADol hydrochloride 50 mg oral tablet (4 sources) Opioid Agonist Start: 04-02-2022 take 1 tablet by mouth every four to six hours as needed traMADol HCl 50 MG 1 tablet as needed Orally every 4-6 hours as needed for 7 days [facility] # [id number] Mar, Not-Taking triamcinolone acetonide 40 mg/ml injectable [...] Resolved: 10-14-2021 Episodic Other aftercare (1 source) 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; Translations: [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 CURRENT USE OF ASPIRIN] Onset: 05-07-2022 Episodic Other aftercare (1 source) Other skilled nursing (current) drug therapy; Translations: [OTH 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 CURRENT DRUG THERAPY] Onset: 05-07-2022 Episodic Other [...] Facility 36on 11-11-2023 36 PT INFORMED Normal [facility] Office Visiton 10-19-2023 Follow-up visit [id number] Pebbles Johnson 1955 F Date Provider Department Center 10/19/2023 271-CYNTHIA BARRY Family History Problem Relation Age of Onset Cancer Other Coronary artery disease Other Depression Other Family Status - Relation Status Age at Other Level of Service:[address] [place] OFFICE/OUTPATIENT ESTABLISHED MOD MDM 30 MIN Normal [facility] Orders Onlyon 10-19-2023 Orders Only [id number] Pebbles Johnson 1955 F Date Provider Department Center 10/19/2023 Radhika8-EVERARDO ARELLANO Family History Problem Relation Age of Onset Cancer Other Coronary artery disease Other Depression Other Family Status - Relation Status Age at Other Normal [facility] Ambulatory Visit Summaryon 0 10-16-2023 [...] BEAVERS, Jean Paul Burton, OLEKSANDR When: Where: [facility] [place] [address]- Medications What How Much When Instructions New estradiol topical (estradiol 0.1 mg/ g Vag Crm) 1 Gram Vaginal As Directed Refills: 4 Apply with plunger 2x per week. Also pply around outer urethra with finger. Pickup at [facility] Unchanged aspirin (aspirin 81 mg oral [...] physician if questions or concerns Pharmacy Information [facility]: [address] [place], [place] [phone] Allergies sulfamethoxazole (....) Problems Ongoing - Any [...] symptoms? Sympto (more content not included)... Normal [facility] Patient Educationon 10-16-19 Patient Education Obstetrics and [...] to the vagina. General instructions ? Take lbea-oma-ooixnfi and prescription medicines only as told by [...] a cot (more content not included)... Normal [facility] Urology Office/Clinic Noteon 10-16-2023 Urology Office/Clinic Note [...] MARYAM BEAVERS, Jean Paul Burton, [address] [place] [address]- Additional Instructions: 6 months Patient Education Vaginitis [...] virus vaccine, inactivated 03/22/2022 Recorded SARS-CoV-2 (COVID-19) [id number].[id number] 03/22/2022 Recorded SARS-CoV-2 (COVID-19) mRNA BNT-162b2 vax 05/23/2021 Recorded influenza virus vaccine, inactivated 04/01/2021 Recorded SARS-CoV-2 (COVID-19) mRNA (more content not included)... [facility] Comment on above: Result Comment: Elec tronically Signed By: Jean Paul URBAN MD\.br\Date and Time Signed: 10/16/23 11:13 EDT\.br\Electronically Co-Signed By: Katiuska Hobbs\.br\Date and Time Co-Signed: 10/16/23 11:11 EDT Consent for Procedure/Surger yon 07-28-2023 Consent for Procedure/Surgery [id number]# 1.00TIFF [facility] Consent for Treatmenton 07-16 Consent for Treatment [id number]#1 .00TIFF [facility] IntraOperative Documentson 0 07-28-2023 IntraOperative Documents [id number] 1.00TIFF [facility] IntraOperative Documents [id number]# 1.00TIFF [facility] Main [place] Intraoperative Recor don 07-28-2023 Main OR Intraoperative Record IntraOp Document Type FTURO Summary Primary Physician: Jean Paul URBAN MD Finalized Date/Time: 07/28/23 11:03:27 Pt. Name: PEBBLES JOHNSON/Sex: 1955 Female Med Rec #: [id number] Physician: Jean Paul URBAN MD Financial #: [id number] Pt. Type: O Room/Bed: / Admit/Disch: 07/28/23 [...] Reina Hurtado Role Performed Surgeon - Primary Public Defender - Primary Scrub - Primary Time In [...] As Preop No HEMATURIA Postop Diagnosis urethral ejl5xetigt Outcomes Met? Yes Last Modified By: KAY [...] By: KAY Irizarry RN, Ruthann 07/28/23 11:03 [facility] Main OR Preoperative Recordo n 07-28-2023 Main OR Preoperative Record Holding Area Document Type FTURO Summary Primary Physician: Jean Paul URBAN MD Finalized Date/Time: 07/28/23 10:57:37 Pt. Name: PEBBLES JOHNSON /Sex: 1955 Female Med Rec #: [id number] Physician: Jean Paul URBAN MD Financial #: [id number] Pt. Type: O Room/Bed: / Admit/Disch: 07/28/23 [...] Complaints of Pain: No Skin Integrity Intact, [place], Warm, & Dry Vitals - EU Blood Pressure 194/80 Pulse 63 bpm Respirations 18 br/min SPO2 99 % RN Reviewed Yes Last Modified By: KAY Irizarry RN, Ruthann 07/28/23 10:57:35 Finalized By: KAY Irizarry RN, Ruthann Document Signatures Signed By: Starr Villa LPN 07/28/23 10:24 KAY Irizarry RN, Ruthann 07/28/23 10:57 Normal [facility] Operative Reporton Operative Report Patient: PEBBLES JOHNSON [...] urine. The Urethra was dilated to: 30 Italian w/ sounds. Devices Implanted: None. Removal: Cystoscope is removed, The patient tolerated it well. Postoperative Information Discharge: Patient is discharged home with antibiotic coverage, Follow up arranged. Normal [facility] Comment on above: Result Comment: Elec tronically Signed By: MARYAM BEAVERS, Jean Paul Billingsley.melissa\Date and Time Signed: 07/28/23 11:10 EST COVID + FLU Quick Testingon 07-18-2023 SARS-CoV-2 (COVID-19) RNA ALEXA+probe Ql (Unsp spec) Negative [employer] Other COVID + FLU Quick Testing Negative [employer] Other Formson 06-30-2023 Forms [id number]#1 .00TIFF Normal [facility] Screenson 06-30-2023 Screens [id number]# 1.00TIFF Normal [facility] Ambulatory Visit Summaryon 0 06-29-2023 Ambulatory Visit Summary PEBBLES JOHNSON :1955 Visit Date:06/29/2023 Ambulatory Visit Instructions Your Diagnosis Mixed incontinence Incontinence without sensory awareness Asymptomatic microscopic hematuria History of UTI Tests Performed Urnls Dip Stick Auto w/o Microscopy POC 83551 Your Care Team Attending Physician - Jean [...] cysto/urodynamics Where: [facility] [address], [place] [phone] Medications What How Much When Instructions New ciprofloxacin (Cipro 500 mg Tab) 1 Tablets By Mouth Every day take one tab day before procedure and one tab after procedure Pickup at [facility] #35389 Unchanged aspirin (aspirin 81 mg oral tablet) [...] physician if questions or concerns Pharmacy Information [facility] #83047: [address] [place], [place] [phone] Test Results Urnls Dip Stick Auto w/o Microscopy POC 26969 (06/29/2023) Bilirubin Urine Dipstick - Negative Blood Urine Dipstick - 1+ Small Leukocytes Urine Dipstick - Negative Nitrite Urine Dipstick - Negative Protein Urine Dipstick - Trace Specific [place] Urine Dipstick - >=1.030 Urine Appearance Urine [...] diabetes med (more content not included)... Normal [facility] Patient Educationon 06-29-19 Patient Education Urology Urodynamic [...] including vitamins, herbs, eye drops, creams, and elkv-dxv-njupuvq medicines. ? Whether you are or may [...] be (more content not included)... Normal [facility] Urology Office/Clinic Noteon 06-29-2023 Urology Office/Clinic Note [...] [facility] [address], [place] [phone] Additional Instructions: sched cysto/urodynamics Patient Education Urodynamic [...] Oral, Daily (more content not included)... Normal [facility] Comment on above: Result Comment: Elec tronically Signed By: Jean Paul URBAN MD\.br\Date and Time Signed: 06/29/23 11:59 EST\.br\Electronically Co-Signed By: Lucia Hensley\.br\Date and Time Co-Signed: 06/29/23 11:57 EST US venous duplex LE BIon US venous duplex LE [facility] [place] [address] Ultrasound Report Signed Patient: Pebbles Johnson MR#: [id number] : 1955 Acct:[id number] Age/Sex: 68 / F ADM Date: 06/03/23 Loc: [facility] Room: Type: [facility] Attending Dr: Gucci Meyers MD Ordering Provider: [...] Gucci Meyers MD06/03/2023 12:58 PM Dictation Location: [place] [address] Tech: Sondra Longo Transcribed By: [facility] 06/03/23 1258 Dictated By: Gucci Meyers MD 06/03/23 1258 Signed By: 06/03/[address] [facility] XR knee LT 3V - NOT FOR ER U Danny 02-23-2023 XR knee LT 3V - NOT FOR ER USE [facility] [place] [address] XRay Report Signed Patient: Pebbles Johnson MR#: [id number] : 1955 Acct:[id number] Age/Sex: 68 / F ADM Date: 02/23/23 Loc: [facility] Room: Type: [facility] Attending Dr: Alex Horton DO Copies to: [...] Mak Jr., D.O.02/23/2023 3:35 PM Dictation Location: [place] [address] Transcribed By: [facility] 02/23/23 1535 Dictated By: Marc Mak Jr, DO 02/23/23 1534 Signed By: 02/23/[address] [facility] MG MAMM SCREEN 3D FELICIA CADon 09-24-2022 MG MAMM SCREEN 3D FELICIA CAD Patient: PEBBLES JOHNSON Exam Date: 09/24/2022 : 1955 Gender:F Ordering : DR FARZANA RAMOS M.D. Admission #: [id number] Family : Order #: [id number] CLICK HERE TO VIEW EXAM RADIOLOGY REPORT [...] kidney cancer at age 31. LOCATION: [facility] BREAST COMPOSITION: Heterogeneously dense,which may obscure small [...] M.D. on 09/24/2022 at 13:25 Normal [facility] Urinalysis - DIPSTICKon 09-13 Appearance (U) clear [employer] Other Bilirubin Ql (U) small [employer] Other Color (U) yellow [employer] Other Glucose Ql (U) Negative [employer] Other Hemoglobin Ql (U) Negative [employer] Other Ketones Ql (U) off chart [employer] Other Leukocyte esterase Test strip Ql (U) Negative [employer] Other Nitrite Ql (U) Negative [employer] Other pH (U) 5.0 [pH] [employer] Other Protein Ql (U) Negative [employer] Other Specific gravity (U) [Rel density] 1.010 [employer] Other Urobilinogen (U) [Mass/Vol] 0.2 mg/dL [employer] Other Urinalysis - DIPSTICK [employer] Other Urine Cultureon 09-24-2022 Bacteria identified Cx Nom (U) <9,000 colonies/ml mixed bacterial skin contaminants 2 Days PERFORMED BY: [place] [address] PATHOLOGIST BUYER INTERN DARRICK GARZA M.D. Normal [facility] Comment on above: Performed By: #### C UU #### [facility] [address] LIPID PROFILEon 07-05-2022 CHOL-HDL RATIO NORM SEE BELOW Normal [facility] Comment on above: Result Comment: 3.3 - 4.4 LOW RISK 4.4 - 7.1 AVERAGE RISK 7.1 - 11.0 MODERATE RISK >11.0 HIGH RISK Performed By: #### L IPID #### [facility] [address] [place] [address] Dr. Carlos Barlow Cholesterol [Mass/Vol] 181 mg/dL Normal <=200 [facility] Comment on above: Performed By: #### L IPID #### [facility] [address] [place] [address] [address] Carlos Barlow Cholesterol in HDL [Mass/Vol] 63 mg/dL Critically high 40-60 [facility] Comment on above: Performed By: #### L IPID #### [facility] [address] [place] [address] [address] Carlos Barlow Cholesterol in LDL [Mass/Vol] 88.0 mg/dL Normal [facility] Comment on above: Performed By: #### L IPID #### [facility] [address] [place] [address] [address] Carlos Barlow Cholesterol.total/C holesterol in HDL [Mass ratio] 2.9 {ratio} Normal [facility] Comment on above: Performed By: #### L IPID #### [facility] [address] [place] [address] [address] Carlos Barlow HDL NORMAL > or = 60 mg/dl - LO W CARDIOVASCULAR RISK <40 mg/dl - HIGH CARDIOVASCULAR RISK Normal [facility] Comment on above: Performed By: #### L IPID #### [facility] [address] [place] [address] Dr. Carlos Barlow LDL CALC NORMAL SEE BELOW Normal [facility] Comment on above: Result Comment: <100 mg/dl OPTIMAL 100 - 129 mg/dl NEAR OR ABOVE OPTIMAL 130 - 159 mg/dl BORDERLINE HIGH 160 - 189 mg/dl HIGH >190 mg/dl VERY HIGH Performed By: #### L IPID #### [facility] [address] [place] [address] [address] Carlos Barlow Triglyceride [Mass/Vol] 150 mg/dL Normal <=150 [facility] Comment on above: Performed By: #### L IPID #### [facility] [address] [place] [address] [address] Carlos Barlow VLDL CALC 30.0 mg/dL Normal [facility] Comment on above: Performed By: #### L IPID #### [facility] [address] [place] [address] Dr. Carlos Barlow XR CHEST 1 Von [...] RO BONILLA Date: 2022-05-05 06:41 Normal [facility] XR NECK SOFT TISSUEon 2021 XR [...] RO BONILLA Date: 2022-05-05 06:42 Normal [facility] XR LSPINE MIN 4 VIEWSon 03-15 XR [...] VICTOR HUGO CESAR Date: 2022-04-01 06:49 Normal [facility] LIPID PROFILEon 03-10-2022 CHOL-HDL RATIO NORM SEE BELOW Normal [facility] Comment on above: Result Comment: 3.3 - 4.4 LOW RISK 4.4 - 7.1 AVERAGE RISK 7.1 - 11.0 MODERATE RISK >11.0 HIGH RISK Performed By: #### B MP, LIPID, LIVER #### [facility] [address] [place] [address] [address] Carlos Barlow Cholesterol [Mass/Vol] 186 mg/dL Normal <=200 [facility] Comment on above: Performed By: #### B MP, LIPID, LIVER #### [facility] [address] [place] [address] [address] Carlos Barlow Cholesterol in HDL [Mass/Vol] 61 mg/dL Critically high 40-60 [facility] Comment on above: Performed By: #### B MP, LIPID, LIVER #### [facility] [address] [place] [address] [address] Carlos Barlow Cholesterol in LDL [Mass/Vol] 90.4 mg/dL Normal [facility] Comment on above: Performed By: #### B MP, LIPID, LIVER #### [facility] [address] [place] [address] [address] Carlos Barlow Cholesterol.total/C holesterol in HDL [Mass ratio] 3.0 {ratio} Normal [facility] Comment on above: Performed By: #### B MP, LIPID, LIVER #### [facility] [address] [place] [address] [address] Carlos Barlow HDL NORMAL > or = 60 mg/dl - LO W CARDIOVASCULAR RISK <40 mg/dl - HIGH CARDIOVASCULAR RISK Normal [facility] Comment on above: Performed By: #### B MP, LIPID, LIVER #### [facility] [address] [place] [address] Dr. Carlos Barlow LDL CALC NORMAL SEE BELOW Normal [facility] Comment on above: Result Comment: <100 mg/dl OPTIMAL 100 - 129 mg/dl NEAR OR ABOVE OPTIMAL 130 - 159 mg/dl BORDERLINE HIGH 160 - 189 mg/dl HIGH >190 mg/dl VERY HIGH Performed By: #### B MP, LIPID, LIVER #### [facility] [address] [place] [address] Dr. Carlos Barlow Triglyceride [Mass/Vol] 173 mg/dL Critically high <=150 [facility] Comment on above: Performed By: #### B MP, LIPID, LIVER #### [facility] [address] [place] [address] Dr. Carlos Barlow VLDL CALC 34.6 mg/dL Normal [facility] Comment on above: Performed By: #### B MP, LIPID, LIVER #### [facility] [address] [place] [address] [address] Carlos Barlow LIVER PROFILEon 03-10-2022 Albumin [Mass/Vol] 3.6 g/dL Normal 3.4-5.0 [facility] Comment on above: Performed By: #### B MP, LIPID, LIVER #### [facility] [address] [place] [address] [address] Carlos Barlow Albumin/Globulin [Mass ratio] 1.1 {ratio} Normal [facility] Comment on above: Performed By: #### B MP, LIPID, LIVER #### [facility] [address] [place] [address] [address] Carlos Barlow ALP [Catalytic activity/Vol] 92 U/L Normal 46-116 [facility] Comment on above: Performed By: #### B MP, LIPID, LIVER #### [facility] [address] [place] [address] Dr. Carlos Barlow ALT [Catalytic activity/Vol] 20 U/L Normal 14-59 [facility] Comment on above: Performed By: #### B MP, LIPID, LIVER #### [facility] [address] [place] [address] Dr. Carlos Barlow AST [Catalytic activity/Vol] 16 U/L Normal 15-37 [facility] Comment on above: Performed By: #### B MP, LIPID, LIVER #### [facility] [address] [place] [address] Dr. Carlos Barlow BILI, CONJUGATED 0.1 mg/dL Normal 0.0-0.2 [facility] Comment on above: Performed By: #### B MP, LIPID, LIVER #### [facility] [address] [place] [address] Dr. Carlos Barlow Bilirubin [Mass/Vol] 0.3 mg/dL Normal 0.2-1.0 [facility] Comment on above: Performed By: #### B MP, LIPID, LIVER #### [facility] [address] [place] [address] Dr. Carlos Barlow Globulin (S) [Mass/Vol] 3.4 g/dL Normal [facility] Comment on above: Performed By: #### B MP, LIPID, LIVER #### [facility] [address] [place] [address] [address] Carlos Barlow Protein [Mass/Vol] 7.0 g/dL Normal 6.4-8.2 [facility] Comment on above: Performed By: #### B MP, LIPID, LIVER #### [facility] [address] [place] [address] [address] Carlos Barlow PROF CHEM 8 (BAS METB)on Anion gap [Moles/Vol] 12.0 mmol/L Normal [facility] Comment on above: Performed By: #### B MP, LIPID, LIVER ####[facility] [address] [place] [address]Dr. Carlos Barlow Calcium [Mass/Vol] 9.6 mg/dL Normal 8.5-10.1 [facility] Comment on above: Performed By: #### B MP, LIPID, LIVER ####[facility] [address] [place] [address]Dr. Carlos Barlow Chloride [Moles/Vol] 105 mmol/L Normal 98-107 [facility] Comment on above: Performed By: #### B MP, LIPID, LIVER ####[facility] [address] [place] [address]Dr. Carlos Barlow CO2 [Moles/Vol] 26.5 mmol/L Normal 21.0-32.0 [facility] Comment on above: Performed By: #### B MP, LIPID, LIVER ####[facility] [address] [place] [address]Dr. Carlos Barlow Creatinine [Mass/Vol] 0.89 mg/dL Normal 0.55-1.02 [facility] Comment on above: Performed By: #### B MP, LIPID, LIVER ####[facility] [address] [place] [address]Dr. Carlos Barlow EGFR-AF LEBANESE >60 Normal >=60 [facility] Comment on above: Performed By: #### B MP, LIPID, LIVER ####[facility] [address] [place] [address]Dr. Carlos Barlow EGFR-NON AF LEBANESE >60 Normal >=60 [facility] Comment on above: Performed By: #### B MP, LIPID, LIVER ####[facility] [address] [place] [address]Dr. Carlos Barlow Glucose [Mass/Vol] 116 mg/dL Critically high 74-106 T [facility] Comment on above: Performed By: #### B MP, LIPID, LIVER ####[facility] [address] [place] [address]Dr. Carlos Barlow Potassium [Moles/Vol] 4.0 mmol/L Normal 3.5-5.1 [facility] Comment on above: Performed By: #### B MP, LIPID, LIVER ####[facility] [address] [place] [address]Dr. Carlos Barlow Sodium [Moles/Vol] 139 mmol/L Normal 136-145 [facility] Comment on above: Performed By: #### B MP, LIPID, LIVER ####[facility] [address] [place] [address]Dr. Carlos Barlow Urea nitrogen [Mass/Vol] 24.0 mg/dL Critically high 7.0-18.0 [facility] Comment on above: Performed By: #### B MP, LIPID, LIVER ####[facility] [address] [place] [address]Dr. Carlos Barlow Urea nitrogen/Creatinine [Mass ratio] 26.9 mg/mg Normal [facility] Comment on above: Performed By: #### B MP, LIPID, LIVER ####[facility] [address] [place] [address]Dr. Carlos Barlow CBC AUTO DIFFon 02-19-2022 BASO # 0.0 103/ul Normal 0.0-0.1 [facility] Comment on above: Performed By: #### C BC ####[facility] [address] [place] [address]Dr. Carlos Barlow Basophils/100 WBC (Bld) 0.4 % Normal 0.2-2.0 [facility] Comment on above: Performed By: #### C BC ####[facility] [address] [place] [id number]. Carlos Barlow EO # 0.2 103/ul Normal 0.0-0.7 [facility] Comment on above: Performed By: #### C BC ####[facility] [address] [place] [address]Dr. Carlos Barlow Eosinophils/100 WBC (Bld) 4.1 % Normal 0.9-7.0 [facility] Comment on above: Performed By: #### C BC ####[facility] [address] [place], [place] [address]Dr. Carlos Barlow Erythrocyte distribution width (RBC) [Ratio] 13.2 % Normal 11.0-15.0 [facility] Comment on above: Performed By: #### C BC ####[facility] [address] [place], [place] [address]Dr. Carlos Barlow Hematocrit (Bld) [Volume fraction] 37.9 % Normal 36.0-48.0 [facility] Comment on above: Performed By: #### C BC ####[facility] [address] [place], [place] [address]Dr. Carlos Barlow Hemoglobin (Bld) [Mass/Vol] 12.7 g/dL Normal 12.0-16.0 [facility] Comment on above: Performed By: #### C BC ####[facility] [address] [place], [place] [address]Dr. Carlos Barlow IG # 0.02 10e3/ul Normal 0.00-0.03 [facility] Comment on above: Performed By: #### C BC ####[facility] [address] [place], [place] [address]Dr. Carlos Barlow IG % 0.4 % Normal 0.0-0.5 [facility] Comment on above: Performed By: #### C BC ####[facility] [address] [place], [place] [address]Dr. Carlos Barlow LYMPH # 0.9 103/ul Critically low 1.2-3.8 [facility] Comment on above: Performed By: #### C BC ####[facility] [address] [id number]. Carlos Barlow Lymphocytes/100 WBC (Bld) 17.7 % Critically low 20.5-60.0 [facility] Comment on above: Performed By: #### C BC ####[facility] [address] [id number]. Carlos Barlow MANUAL DIFF REQ NO Normal [facility] Comment on above: Performed By: #### C BC ####[facility] [address] [id number]. Carlos Cain MCH (RBC) [Entitic mass] 28.4 pg Normal 26.7-34.0 [facility] Comment on above: Performed By: #### C BC ####[facility] [address] [place], [place] [address]Dr. Carlos Cain MCHC (RBC) [Mass/Vol] 33.5 g/dL Normal 29.9-35.2 [facility] Comment on above: Performed By: #### C BC ####[facility] [address] [place] [id number]. Carlos Barlow MCV (RBC) [Entitic vol] 84.8 fL Normal 81.0-99.0 [facility] Comment on above: Performed By: #### C BC ####[facility] [address] [place], [place] [id number]. Carlos Cain MONO # 0.7 103/ul Normal 0.3-0.8 [facility] Comment on above: Performed By: #### C BC ####[facility] [address] [place], [place] [id number]. Carlos Cain Monocytes/100 WBC (Bld) 13.4 % Critically high 1.7-12.0 [facility] Comment on above: Performed By: #### C BC ####[facility] [address] [place], [place] [id number]. Carlos Barlow NEUT # 3.3 103/ul Normal 1.4-6.5 [facility] Comment on above: Performed By: #### C BC ####[facility] [address] [place], [place] [address]Kn. Carlos Barlow Neutrophils/100 WBC (Bld) 64.0 % Normal 43.0-75.0 [facility] Comment on above: Performed By: #### C BC ####[facility] [address] [place], [place] [address]Zn. Carlos Barlow Platelet mean volume (Bld) [Entitic vol] 10.5 fL Normal 9.5-13.5 [facility] Comment on above: Performed By: #### C BC ####[facility] [address] [id number]. Carlos Barlow PLT 252 103/ul Normal 150-450 [facility] Comment on above: Performed By: #### C BC ####[facility] [address] [id number]. Carlos Barlow RBC 4.47 106/ul Normal 4.20-5.40 [facility] Comment on above: Performed By: #### C BC ####[facility] [address] [place] [id number]. Carlos Barlow WBC 5.2 103/ul Normal 4.0-11.0 [facility] Comment on above: Performed By: #### C BC ####[facility] [address] [place] [id number]. Carlos Barlow LIPID PROFILEon 02-19-2022 CHOL-HDL RATIO NORM SEE BELOW Normal [facility] Comment on above: Result Comment: 3.3 - 4.4 LOW RISK 4.4 - 7.1 AVERAGE RISK 7.1 - 11.0 MODERATE RISK >11.0 HIGH RISK Performed By: #### C MP, LIPID #### [facility] [id number] Carlos Barlow Cholesterol [Mass/Vol] 241 mg/dL Critically high <=200 [facility] Comment on above: Performed By: #### C MP, LIPID #### [facility] [id number] Carlos Barlow Cholesterol in HDL [Mass/Vol] 51 mg/dL Normal 40-60 [facility] Comment on above: Performed By: #### C MP, LIPID #### [facility] [address] [address] [address] Carlos Barlow Cholesterol in LDL [Mass/Vol] 133.8 mg/dL Normal [facility] Comment on above: Performed By: #### C MP, LIPID #### [facility] [address] [address] [address] Carlos Barlow Cholesterol.total/C holesterol in HDL [Mass ratio] 4.7 {ratio} Normal [facility] Comment on above: Performed By: #### C MP, LIPID #### [facility] [address] [place] [address] Dr. Carlos Barlow HDL NORMAL > or = 60 mg/dl - LO W CARDIOVASCULAR RISK <40 mg/dl - HIGH CARDIOVASCULAR RISK Normal [facility] Comment on above: Performed By: #### C MP, LIPID #### [facility] [address] [place] [address] Dr. Carlos Barlow LDL CALC NORMAL SEE BELOW Normal [facility] Comment on above: Result Comment: <100 mg/dl OPTIMAL 100 - 129 mg/dl NEAR OR ABOVE OPTIMAL 130 - 159 mg/dl BORDERLINE HIGH 160 - 189 mg/dl HIGH >190 mg/dl VERY HIGH Performed By: #### C MP, LIPID #### [facility] [address] [place] [address] Dr. Carlos Barlow Triglyceride [Mass/Vol] 281 mg/dL Critically high <=150 [facility] Comment on above: Performed By: #### C MP, LIPID #### [facility] [address] [place] [address] Dr. Carlos Barlow VLDL CALC 56.2 mg/dL Normal [facility] Comment on above: Performed By: #### C MP, LIPID #### [facility] [address] [place] [address] Dr. Carlos Barlow PROF 14(COMP METB)on 022 Albumin [Mass/Vol] 3.3 g/dL Critically low 3.4-5.0 Th [facility] Comment on above: Performed By: #### C MP, LIPID #### [facility] [address] [address] [address] Carlos Barlow Albumin/Globulin [Mass ratio] 0.9 {ratio} Normal [facility] Comment on above: Performed By: #### C MP, LIPID #### [facility] [address] [address] [address] Carlos Barlow ALP [Catalytic activity/Vol] 96 U/L Normal 46-116 [facility] Comment on above: Performed By: #### C MP, LIPID #### [facility] [address] [address] [address] Carlos Barlow ALT [Catalytic activity/Vol] 21 U/L Normal 14-59 [facility] Comment on above: Performed By: #### C MP, LIPID #### [facility] [address] [place] [address] Dr. Carlos Barlow Anion gap [Moles/Vol] 7.2 mmol/L Normal [facility] Comment on above: Performed By: #### C MP, LIPID #### [facility] [address] [place] [address] Dr. Carlos Barlow AST [Catalytic activity/Vol] 14 U/L Critically low 15-37 [facility] Comment on above: Performed By: #### C MP, LIPID #### [facility] [address] [place] [address] Dr. Carlos Barlow Bilirubin [Mass/Vol] 0.2 mg/dL Normal 0.2-1.0 [facility] Comment on above: Performed By: #### C MP, LIPID #### [facility] [address] [address] [address] Carlos Barlow Calcium [Mass/Vol] 9.5 mg/dL Normal 8.5-10.1 [facility] Comment on above: Performed By: #### C MP, LIPID #### [facility] [address] [address] [address] Carlos Barlow Chloride [Moles/Vol] 103 mmol/L Normal 98-107 [facility] Comment on above: Performed By: #### C MP, LIPID #### [facility] [address] [address] [address] Carlos Barlow CO2 [Moles/Vol] 32.1 mmol/L Critically high 21.0-32.0 [facility] Comment on above: Performed By: #### C MP, LIPID #### [facility] [address] [address] [address] Carlos Barlow Creatinine [Mass/Vol] 0.80 mg/dL Normal 0.55-1.02 [facility] Comment on above: Performed By: #### C MP, LIPID #### [facility] [address] [place] [address] Dr. Carlos Barlow EGFR-AF LEBANESE >60 Normal >=60 [facility] Comment on above: Performed By: #### C MP, LIPID #### [facility] [address] [place] [address] Dr. Carlos Barlow EGFR-NON AF LEBANESE >60 Normal >=60 [facility] Comment on above: Performed By: #### C MP, LIPID #### [facility] [address] [place] [address] Dr. Carlos Barlow Globulin (S) [Mass/Vol] 3.5 g/dL Normal [facility] Comment on above: Performed By: #### C MP, LIPID #### [facility] [address] [place] [address] Dr. Carlos Barlow Glucose [Mass/Vol] 110 mg/dL Critically high 74-106 T [facility] Comment on above: Performed By: #### C MP, LIPID #### [facility] [address] [place] [address] Dr. Carlos Barlow Potassium [Moles/Vol] 4.3 mmol/L Normal 3.5-5.1 [facility] Comment on above: Performed By: #### C MP, LIPID #### [facility] [address] [place] [address] Dr. Carlos Barlow Protein [Mass/Vol] 6.8 g/dL Normal 6.4-8.2 [facility] Comment on above: Performed By: #### C MP, LIPID #### [facility] [address] [place], [place] [address] Dr. Carlos Barlow Sodium [Moles/Vol] 138 mmol/L Normal 136-145 [facility] Comment on above: Performed By: #### C MP, LIPID #### [facility] [address] [place], [place] [address] Dr. Carlos Barlow Urea nitrogen [Mass/Vol] 15.0 mg/dL Normal 7.0-18.0 [facility] Comment on above: Performed By: #### C MP, LIPID #### [facility] [address] [place], [place] [address] Dr. Carlos Barlow Urea nitrogen/Creatinine [Mass ratio] 18.8 mg/mg Normal [facility] Comment on above: Performed By: #### C MP, LIPID #### [facility] [address] [place], [place] [address] Dr. Carlos Barlow Vital Signs Date Time Vital Sign Value Performing Clinician Facility 10-16-2023 10:31-0400 Blood Pressure Location Jean Paul URBAN [facility] 10-16-2023 10:31-0400 Diastolic blood pressure 78 mm[Hg] Jean Paul URBAN [facility] 10-16-2023 10:31-0400 Heart rate 80 /min Jean Paul URBAN [facility] 10-16-2023 10:31-0400 Respiratory rate 16 /min Jean Paul URBAN [facility] 10-16-2023 10:31-0400 Systolic blood pressure 134 mm[Hg] Jean Paul URBAN [facility] 07-18-2023 10:05-0500 Body height 149.86 cm Lissa Prather Other [facility] Other 07-18-2023 10:05-0500 Body mass index (BMI) [Ratio] 33.42 kg/m2 Lissa Prather Other [facility] Other 07-18-2023 10:05-0500 Body temperature 96.2 [degF] Lissa Prather Other [facility] Other 07-18-2023 10:05-0500 Body weight 75.07 kg Lissa Prather Other [facility] Other 07-18-2023 10:05-0500 Diastolic blood pressure 81 mm[Hg] Lissa Prather Other [facility] Other 07-18-2023 10:05-0500 Respiratory rate 18 /min Lissa Prather Other [facility] [facility] Other 07-18-2023 10:05-0500 SaO2% (BldA) [Mass fraction] 96 % Lissa Prather Other [facility] [facility] Other 07-18-2023 10:05-0500 Systolic blood pressure 181 mm[Hg] Lissa Prather Other [facility] [facility] Other 06-29-2023 11:17-0500 Blood Pressure Location Jean Paul URBAN [facility] 06-29-2023 11:17-0500 Diastolic blood pressure 78 mm[Hg] Jean Paul URBAN [facility] 06-29-2023 11:17-0500 Heart rate 69 /min Jean Paul URBAN [facility] 06-29-2023 11:17-0500 Respiratory rate 16 /min Jean Paul URBAN [facility] 06-29-2023 11:17-0500 Systolic blood pressure 134 mm[Hg] Jean Paul URBAN [facility] 06-03-2023 09:00-0500 Body height 149.86 cm Marine Watson Other [employer] [facility] Other 06-03-2023 09:00-0500 Body mass index (BMI) [Ratio] 33.93 kg/m2 Marine Watson Other [employer] Other 06-03-2023 09:00-0500 Body temperature 96.7 [degF] Marine Watson Other [employer] [facility] Other 06-03-2023 09:00-0500 Body weight 76.2 kg Marine Shirley Other [employer] [facility] Other 06-03-2023 09:00-0500 Diastolic blood pressure 80 mm[Hg] Marine Watson Other [facility] [facility] Other 06-03-2023 09:00-0500 SaO2% (BldA) [Mass fraction] 96 % Marine Watson Other [employer] [facility] Other 06-03-2023 09:00-0500 Systolic blood pressure 142 mm[Hg] Marine Watson Other [facility] [facility] Other 05-05-2023 09:45-0500 Body height 149.86 cm Farzana Ramos Other [facility] [facility] Other 05-05-2023 09:45-0500 Body mass index (BMI) [Ratio] 33.93 kg/m2 Farzana Ramos Other [facility] [facility] Other 05-05-2023 09:45-0500 Body weight 76.2 kg Farzana Ramos Other [employer] [facility] Other 05-05-2023 09:45-0500 Diastolic blood pressure 76 mm[Hg] Farzana Ramos Other [employer] Other 05-05-2023 09:45-0500 Systolic blood pressure 142 mm[Hg] Farzana Ramos Other [facility] [facility] Other 04-29-2023 09:45-0500 Body height 149.86 cm Gucci Meyers Other [employer] [facility] Other 04-29-2023 09:45-0500 Body mass index (BMI) [Ratio] 34.53 kg/m2 Gucci Meyers Other [employer] Other 04-29-2023 09:45-0500 Body temperature 97.4 [degF] Gucci Meyers Other [employer] Other 04-29-2023 09:45-0500 Body weight 77.57 kg Gucci Meyers Other [employer] Other 04-29-2023 09:45-0500 Diastolic blood pressure 62 mm[Hg] Gucci Meyers Other [employer] Other 04-29-2023 09:45-0500 SaO2% (BldA) [Mass fraction] 99 % Gucci Meyers Other [employer] Other 04-29-2023 09:45-0500 Systolic blood pressure 140 mm[Hg] Gucci Lowryjair Other [employer] [facility] Other 04-09-2023 09:15-0400 Body height 149.86 cm Farzana Ramos Other [employer] Other 04-09-2023 09:15-0400 Body mass index (BMI) [Ratio] 34.53 kg/m2 Farzana Ramos Other [employer] Other 04-09-2023 09:15-0400 Body weight 77.57 kg Farzana Ramos Other [employer] Other 04-09-2023 09:15-0400 Diastolic blood pressure 78 mm[Hg] Farzana Ramos Other [employer] Other 04-09-2023 09:15-0400 Systolic blood pressure 151 mm[Hg] Farzana Ramos Other [employer] [facility] Other 03-27-2023 10:30-0400 Body height 149.86 cm Farzana Ramos Other [employer] [facility] Other 03-27-2023 10:30-0400 Body mass index (BMI) [Ratio] 35.75 kg/m2 Farzana Ramos Other [employer] [facility] Other 03-27-2023 10:30-0400 Body weight 80.29 kg Farzana Ramos Other [employer] Other 03-27-2023 10:30-0400 Diastolic blood pressure 81 mm[Hg] Farzana Ramos Other [employer] Other 03-27-2023 10:30-0400 Systolic blood pressure 147 mm[Hg] Farzana Ramos Other [employer] Other 03-11-2023 11:00-0400 Body height 149.86 cm Farzana Ramos Other [employer] Other 03-11-2023 11:00-0400 Body mass index (BMI) [Ratio] 33.73 kg/m2 Farzana Ramos Other [employer] Other 03-11-2023 11:00-0400 Body weight 75.75 kg Farzana Ramos Other [employer] Other 03-11-2023 11:00-0400 Diastolic blood pressure 66 mm[Hg] Farzana Ramos Other [employer] Other 03-11-2023 11:00-0400 Systolic blood pressure 109 mm[Hg] Farzana Ramos Other [employer] Other 11-21-2022 10:45-0400 Body height 149.86 cm Farzana Ramos Other [employer] Other 11-21-2022 10:45-0400 Body mass index (BMI) [Ratio] 33.12 kg/m2 Farzana Ramos Other [employer] Other 11-21-2022 10:45-0400 Body weight 74.39 kg Farzana Ramos Other [employer] Other 11-21-2022 10:45-0400 Diastolic blood pressure 70 mm[Hg] Farzana Raoms Other [employer] [facility] Other 11-21-2022 10:45-0400 Systolic blood pressure 112 mm[Hg] Farzana Ramos Other [employer] Other 10-14-2021 10:45-0400 Body height 149.86 cm Alex Horton Other [employer] [facility] Other 10-14-2021 10:45-0400 Body mass index (BMI) [Ratio] 33.93 kg/m2 Alex Sol Other [employer] [facility] Other 10-14-2021 10:45-0400 Body weight 76.2 kg Alex Sol Other [employer] [facility] Other 09-23-2021 11:15-0400 Body height 149.86 cm Alex Sol Other [employer] [facility] Other 09-23-2021 11:15-0400 Body mass index (BMI) [Ratio] 33.12 kg/m2 Alex Sol Other [employer] [facility] Other 09-23-2021 11:15-0400 Body weight 74.39 kg Alex Sol Other [employer] Other Encounters Encounter Date Encounter Type Care Provider Facility Start: 04-22-2024 ambulatory Jean Paul Stone ty:[facility] Start: 10-19-2023 End: 10-19-2023 ambulatory [facility] Start: 10-16-2023 End: 10-17-2023 ambulatory Jean Paul URBAN [facility] Start: 10-16-2023 End: 10-16-2023 Patient encounter procedure Jean Paul URBAN [facility] Start: 07-28-2023 End: 07-29-2023 ambulatory Jean Paul URBAN Facility[place] Start: 07-28-2023 End: 07-28-2023 Patient encounter procedure Jean Paul URBAN [facility] Start: 07-18-2023 End: 07-18-2023 ambulatory Lissa Rossmond Other [employer] Other Start: 07-18-2023 Office outpatient vi sit 15 minutes Lissa Yamilka [facility] Start: 06-29-2023 End: 06-30-2023 ambulatory Jean Paul URBAN Facility:[facility] Start: 06-29-2023 End: 06-29-2023 Patient encounter procedure Jean Paul Burton URBAN [facility] Start: 06-03-2023 End: 06-03-2023 Patient encounter procedure Marine Barrywinnie [facility] Start: 06-03-2023 End: 06-03-2023 ambulatory NON STAFF [employer] [facility] Other Start: 05-20-2023 End: 05-20-2023 ambulatory Farzana Ramos Other [employer] [facility] Other Start: 05-20-2023 Telephone encounter Farzana Ramos [facility] Start: 05-05-2023 End: 05-05-2023 ambulatory Farzana Ramos Other [employer] Other Start: 05-05-2023 Office outpatient vi sit 15 minutes Farzana Ramos [facility] Start: 04-29-2023 End: 04-29-2023 ambulatory Gucci Meyers Other [employer] Other Start: 04-29-2023 Office outpatient ne w 30 minutes Gucci Meyers [facility] Start: 04-29-2023 Telephone encounter Gucci sexton [facility] Start: 04-21-2023 End: 04-21-2023 ambulatory Alex Horton Other [employer] [facility] Other Start: 04-21-2023 Telephone encounter [facility] Start: 04-09-2023 End: 04-09-2023 ambulatory Farzana Richard Other [employer] Other Start: 04-09-2023 Office outpatient vi sit 15 minutes Farzana Ramos [facility] Start: 03-30-2023 End: 03-30-2023 ambulatory Farzana Richard Other [employer] Other Start: 03-30-2023 Telephone encounter Farzana Ramos [facility] Start: 03-27-2023 End: 03-27-2023 ambulatory Farzana Ramos Other [employer] Other Start: 03-27-2023 Office outpatient vi sit 15 minutes Farzana Ramos [facility] Start: 03-24-2023 End: 03-24-2023 ambulatory Farzana Richard Other [employer] Other Start: 03-24-2023 Telephone encounter Farzana Richard [facility] Start: 03-23-2023 ambulatory Jean Paul URBAN Facility :[facility] Start: 03-11-2023 End: 03-11-2023 ambulatory Farzana Richard Other [employer] Other Start: 03-11-2023 Office outpatient vi sit 15 minutes Farzana Ramos [facility] Start: 02-23-2023 End: 02-23-2023 ambulatory Alex Horton Facility:[facility] Start: 02-23-2023 End: 02-23-2023 ambulatory NON STAFF [facility] Work Phone: Start: 02-23-2023 End: 02-23-2023 Patient encounter procedure [facility] Start: 02-03-2023 End: 02-03-2023 ambulatory Farzana Ramos Other [employer] Other Start: 02-03-2023 Telephone encounter Farzana Ramos [facility] Start: 11-21-2022 End: 11-21-2022 ambulatory Farzana Ramos Other [employer] Other Start: 11-21-2022 Office outpatient vi sit 15 minutes Farzana Ramos [facility] Start: 09-26-2022 End: 09-26-2022 ambulatory Farzana Ramos Other [employer] Other Start: 09-26-2022 Telephone encounter Farzana Ramos [facility] Start: 09-24-2022 Nursing evaluation o f patient and report Farzana Ramos [facility] Start: 09-24-2022 End: 09-25-[address] FARZANA RAMOS [facility] Work Phone: Start: 09-24-2022 End: 09-24-2022 Departed Referred MD Farzana Ramos Work Phone: [facility] [place] Work Phone: Start: 07-07-2022 (Televisit) Televisit Farzana De La Cruz [facility] Start: 07-07-2022 End: 07-07-2022 ambulatory Farzana Ramos Other [employer] Other Start: 07-05-2022 End: 07-06-[address] DOCTOR MCCULLOUGH Facility:[facility] Start: 05-13-2022 Adult health examination Farzana Ramos Other [employer] Other Start: 05-05-2022 End: 05-05-[address] FARZANA RAMOS Facility:[facility] Start: 04-02-2022 End: 04-02-2022 ambulatory Alex Horton Other [employer] Other Start: 04-02-2022 Office outpatient vi sit 15 minutes Alex Horton [facility] Start: 03-31-2022 End: 04-01-[address] FARZANA RAMOS Facility:[facility] Start: 03-10-2022 End: 03-11-[address] CYNTHIA BARRY Facility:[facility] Start: 02-19-2022 End: 02-20-2022 ambulatory LEVY BRAND Facility:[facility] Start: 11-13-2021 End: 11-13-2021 ambulatory Alex Horton Other [employer] Other Start: 11-13-2021 Telephone encounter Alex RAMIRES [facility] Start: 10-28-2021 End: 10-28-2021 ambulatory Alex Horton Other [employer] Other Start: 10-28-2021 Telephone encounter Alex RAMIRES [facility] Start: 10-23-2021 End: 10-23-2021 ambulatory Alex Horton Other [facility] Other Start: 10-23-2021 Telephone encounter Alex RAMIRES [facility] Start: 10-14-2021 End: 10-14-2021 ambulatory Alex Horton Other [employer] Other Start: 10-14-2021 Office outpatient vi sit 25 minutes Alex Horton [facility] Start: 09-23-2021 End: 09-23-2021 ambulatory Alex Horton Other [employer] Other Start: 09-23-2021 Office outpatient vi sit 15 minutes Alex Horton [facility] Procedures Date Procedure Procedure Detail Performing [...] administrative Farzana Ramos Other Appendectomy Jean Paul URABN Colonoscopy Jean Paul URBAN History of operative procedure on knee S/P arthroscopic knee surgery MD Farzana Ramos Work Phone: Hysterectomy Jean Paul URBAN Screening for malign ant neoplasm of breast Farzana Ramos Other Plan of Treatment Date Care Activity Detail Author Start: 09-24-2022 Bacteria identified in Urine by Culture Urine Culture [facility] Immunizations Immunization Date Immunization Notes Care Provider Fa cili 04-08-2023 influenza virus vaccine, unspecified formulation Jean Paul URBAN [facility] 07-23-2022 Prevnar 20 Farzana Ramos Other [employer] Other 03-22-2022 COVID-19 Vaccine Moderna - Documentation Purposes Only Farzana Ramos Other [employer] Other 03-22-2022 influenza virus vaccine, split virus (incl. purified surface antigen) Farzana Ramos Other [employer] Other 03-22-2022 influenza virus vaccine, unspecified formulation Jean Paul URBAN [facility] 03-22-2022 SARS-CoV-2 (COVID-19 ) [id number] Jean Paul URBAN [facility] 06-05-2021 pneumococcal conjuga te vaccine, 13 valent Farzana Ramos Other [employer] Other 05-23-2021 Do not use COVID-19 Pfizer 2 dose Alex Horton Other [facility] 04-01-2021 influenza virus vaccine, unspecified formulation [employer] [facility] 09-28-2020 COVID-19 Jaguar Jimenes (Pfizer) MD Farzana Ramos Work Phone: [facility] 09-18-2020 Do not use COVID-19 Pfizer 2 dose Alex Sol Other [facility] 08-28-2020 Do not use COVID-19 Pfizer 2 dose Alex Sol Other [facility] 02-29-2020 influenza virus vaccine, unspecified formulation [employer] [facility] 03-25-2019 influenza virus vaccine, unspecified formulation [employer] [facility] 06-28-2018 zoster vaccine recombinant [employer] [facility] 03-30-2018 zoster vaccine recombinant [employer] [facility] 03-09-2018 influenza virus vaccine, split virus (incl. purified surface antigen) Farzana Ramos Other [employer] Other 03-09-2018 influenza virus vaccine, unspecified formulation [employer] [facility] 02-29-2016 tetanus and diphther ia toxoids, adsorbed, preservative free, for adult use (5 Lf of tetanus toxoid and 2 Lf of diphtheria toxoid) Farzana Ramos Other [employer] Other 04-09-2015 influenza virus vaccine, unspecified formulation [employer] [facility] 04-09-2015 tetanus and diphther ia toxoids, adsorbed, preservative free, for adult use (5 Lf of tetanus toxoid and 2 Lf of diphtheria toxoid) Farzana Ramos Other [employer] Other Payers Date Payer Category Payer Unknown [id number] 1955 Unknown [id number] 2.16.84 [id number] 1955 Unknown [id number] 2.16.84 [id number] 1955 Unknown [id number] 2.16.84 [id number] 1955 Unknown [id number] 2.16.84 [id number] 1955 Unknown [id number] 2.16.84 [id number] 1955 Unknown [id number] 2.16.84 [id number] 1955 Unknown [id number] 2.16.8 [id number] 1955 Unknown [id number] 2.16.8 40.1.570774.3.579.2.727 1955 Unknown [id number] 2.16.8 [id number] 1955 Unknown [id number] 2.16.8 [id number] Self-pay Self Pay [id number] Unknown [facility] [id number] Social History Date Type Detail Facility Unknown if ever smoked [employer] Other Sex Assigned At [facility] Start: 10-22-2021 End: 10-16-2023 Tobacco smoking status NHIS Never smoked tobacco (finding) [facility] Start: 1955 Sex Assigned At Female F [facility] Tobacco smoking status Never [facility] Functional Status Date Assessment Result Facility 10-16-2023 Functional Status N/A [facility] 07-28-2023 Functional Status N/A [facility] 06-29-2023 Functional Status N/A [facility] Clinical Notes 09-23-2021 to 10-19-2023 Note Date & Type Note Facility 10-19-2023 Note [facility] Cardiology Clinic Note Chief Complaint: Patient here [...] past medical history of Bipolar 1 disorder (CMS/[facility]), Hyperlipidemia, and Hypertension. Surgical History She has [...] problems arise Cynthia Barry MD, MPH, FACC, [facility], [facility] Interventional Cardiology Pager Email: [email or web address] 10-16-2023 Hospital Discharge instructions Patient Education [...] rectum to the vagina. General instructions Take jyyk-tce-njkmxqb and prescription medicines only as told by [...] provider. Document Revised: 11/29/2020 Document Reviewed: 11/29/2020 [employer]IE[employer] Patient Education 2022 [employer]. Follow Up Care 07/28/2023 11:08:09 With:MARYAM BEAVERS, Jean Paul Burton, URL Address: [address] [place] [address] [place] [address]- When: Unknown [facility] 07-28-2023 Note [id number] [facility] 07-28-2023 Hospital Discharge instructions Patient Education 07/28/2023 [...] [facility] [address] [place] [address]- Business (1) When:10/26/2023 11:01:17 [facility] 07-28-2023 Note Custom Cystoscopy with Urethral Dilation [...] you have a fever over 100 degrees [facility] 07-18-2023 Evaluation note Encounter Date Diagnosis Assessment Notes Jul, Contact with and (suspected) exposure to covid-19 (ICD-10 - Z20.822) Jul, Viral URI (ICD-10 - J06.9) Drink plenty of fluids, get plenty of rest. Take Tylenol or Motrin as needed for aches pains or fevers. Follow-up with your family physician if no improvement in 2 to 3 days [employer] Other 01-15-2024 Hospital Discharge instructions Patient Education [...] including vitamins, herbs, eye drops, creams, and qjqu-orx-hsbvaxf medicines. ?Whether you are or may be [...] provider. Document Revised: 02/12/2022 Document Reviewed: 01/04/2021 [employer] Patient Education 2022 [employer]. 06/29/2023 11:52:01 Urinary Incontinence Urinary Incontinence Urinary [...] nerve stimulation). ?For women, using a medical corps officer to prevent urine leaks. This is a [...] right after experiencing incontinence. General instructions Take qmkv-qio-hikicyv and prescription medicines only as told by [...] important. Where to find more information National [place] of Diabetes and Digestive and Kidney Diseases: www.niddk.nih.gov Citizen Of [place] Urology Association: www.urologyhealth.org Contact a health care [...] provider. Document Revised: 01/04/2021 Document Reviewed: 01/04/2021 [employer]IE[employer] Patient Education 2022 [employer]. Follow Up Care 03/23/2023 10:22:20 With:MARYAM BEAVERS, Jean Paul Burton, URL Address: [facility] [address] , [place] [phone] When: Unknown Comments:sched cysto/urodynamics [facility] 12-20-2023 Evaluation note* Encounter Date Diagnosis Assessment [...] Edema of right ankle (ICD-10 - M25.471) [employer] Other 12-06-2023 Evaluation note* Encounter Date Diagnosis Assessment Notes Treatment Notes Treatment Clinical Notes May, Lumbar radiculopathy (ICD-10 - M54.16) [employer] Other 11-21-2023 Evaluation note* Encounter Date Diagnosis Assessment Notes Treatment Notes Treatment Clinical Notes Apr, Lumbar pain (ICD-10 - M54.50) Continue followup w chiropractor in 1 hr. XR order given. Discussed potential referral to pain management if needed. Will call w update. Taking motrin tid for pain. [employer] Other 11-15-2023 Evaluation note* Encounter Date Diagnosis [...] few weeks to go over the results. [employer] Other 10-26-2023 Evaluation note* Encounter Date Diagnosis Assessment Notes Treatment Notes Treatment Clinical Notes Mar, Anxiety, generalized (ICD-10 - F41.1) Skin exam normal. Suspect her anxiety is causing the itching sensation. Discussed medication and counseling. Followup in 1 month. [employer] Other 10-13-2023 Evaluation note* Encounter Date Diagnosis Assessment Notes Treatment Notes Treatment Clinical Notes Mar, Right ankle swelling (ICD-10 - M25.471) Discussed importance to r/o DVT. Consider referral based on US results. [employer] Other 09-27-2023 Evaluation note* Encounter Date Diagnosis Assessment Notes Treatment Notes Treatment Clinical Notes Feb, Essential hypertension (ICD-10 - I10) Discussed low bp today and how this can be linked to her symptoms of lightheadedness. Will hold chlorthalidone. Check bp daily. Call with readings. Followup in 1 month. [employer] Other 06-09-2023 Evaluation note* Encounter Date Diagnosis Assessment Notes Treatment Notes Treatment Clinical Notes Nov, Pruritus (ICD-10 - L29.9) Med could relieve itching and help her sleep Nov, Situational anxiety (ICD-10 - F41.8) Discussed medications and stress relief. Continue present chronic medications. [employer] Other 04-12-2023 Evaluation note* Encounter Date Diagnosis Assessment Notes Treatment Notes Treatment Clinical Notes Sep, Dysuria (ICD-10 - R30.0) [employer] Other 01-23-2023 Evaluation note* Encounter Date Diagnosis Assessment Notes Treatment Notes Treatment Clinical Notes Jun, Allergic cough (ICD-10 - R05.8) Discussed symptom management with Coricidin and Claritin. Call if fevers or shortness of breath occurs. Discussed masking at work for her own wellness as well as her coworkers and customers. [employer] Other 10-19-2022 Evaluation note* Encounter Date Diagnosis [...] get an MRI of the lumbar spine [employer] Other 10-18-2022 NotePROCEDURE: XR HIP LT 2 3V W PELVIS HISTORY: Left side sciatica ; low back and left hip pain for 2 weeks COMPARISON: None. FINDINGS: BONES:No fracture, acute abnormality, or significant arthropathy. SOFT TISSUES:No visible soft tissue swelling. EFFUSION:None visible. OTHER: Negative. IMPRESSION: 1. No acute bone abnormality or significant degenerative joint disease. Electronically authenticated by: VICTOR HUGO CESAR Date: 2022-04-01 06:49[facility]06-01-2022 Evaluation note* Encounter Date Diagnosis Assessment Notes Treatment Notes Treatment Clinical Notes Nov, Other specified postprocedural states (ICD-10 - Z98.890) [employer] Other 05-16-2022 Evaluation note* Encounter Date Diagnosis Assessment Notes Treatment Notes Treatment Clinical Notes October, Primary osteoarthritis of left knee (ICD-10 - M17.12) [employer] Other 05-02-2022 Evaluation note* Encounter Date Diagnosis [...] healing. 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 I have [...] follow-up after this for further treatment options. [employer] Other 04-11-2022 Evaluation note* Encounter Date Diagnosis [...] follow-up after this for further treatment options. [employer] Other Evaluation + Plan note Future Appointments Appointment Date:07/28/2023 09:00:00 AM Scheduled Provider: Location[facility] Appointment Type:Urology FT Appointment Date:07/28/2023 10:15:00 AM Scheduled Provider: Location:[facility] Appointment Type:Urology FT [facility] evaluation + Plan note Future Appointments Appointment Date:10/16/2023 10:30:00 AM Scheduled Provider:Jean Paul URBAN MD Location:[facility] Future Appointments Appointment Date:04/22/2024 09:45:00 AM Scheduled Provider:Jean Paul URBAN MD Location:[facility] Appointment Type:URO Office Visit [facility] evaluation noteNo Edvert Other Evaluation noteNo assessment information available [facility] Work Phone: [employer] general Narrative - Reported* Type Description Date Medical History Benign essential HTN Medical History Hypercholesterolemia Surgical History colonoscopy Surgical History partial hysterectomy Hospitalization History see above [employer] Other Hisdmrz general Narrative - Reported* Type Description Date [...] knee surgery 10/2021 Hospitalization History see above [employer] Other Hospital course Narrative No data available for this section [facility] progress note No data available for this section [facility] Manflu reason for visit NarrativeLOWER BACK - REFERRAL FOR [employer] Other Family History No Family History Records [...] Diagnosis 1 Lumbar radiculopathy (M54.16) Referral Organization [facility] Ogone kavin Referring Provider First Name Farzana Referring Provider Last Name Richard Referring Provider Specialty [facility] [email or web address] Referred Organization [facility] Referred Address [address], [place],[address] Referred Provider Specialty Pain Medicin e Referral Priority Routine Reason *Waiting for appt swelling and varicosities Diagnosis 1 Right ankle swelling (M25.471) Referral Organization [facility] Ogone kavin Referring Provider First Name Farzana Referring Provider Last Name Richard Referring Provider Specialty [facility] cine Referred Organization [facility] Vascular Surge ry Referred Provider Gucci Meyers Referred Address [address],[place], [place],[address] Referred Provider Specialty Vascular Navjot soledad Referral [...] DATE CREATED AUTHOR AUTHOR'S ORGANIZ ATION 06/04/2023 [facility] DATE CREATED AUTHOR AUTHOR'S ORGANIZ ATION 10/17/2023 [facility] DATE CREATED AUTHOR AUTHOR'S ORGANIZ ATION 11/12/2023 [facility] FOR RECORDS PERTAINING TO PATIENTS WHO ARE [...] BE BASED ON THE PRIMARY CLINICAL RECORDS. [employer] provides no warranty or guarantee of the accuracy or completeness of information in this document.
[2024-02-01] MEDS: 0.9 % SODIUM CHLORIDE 1,000 ML 75 ML IV (04:17)
[2024-02-01] MEDS: ENOXAPARIN SODIUM 40 MG/0.4 ML SYRINGE SUBQ (04:17)
[2024-02-01] MEDS: HYDRALAZINE HCL 20 MG/ML VIAL 10 MG IVP (04:17)
[2024-02-01 06:09] LABS: Basophils Percent Auto 0.3 % (0.2-2.0); Eosinophils Absolute Auto 0.3 10^3/uL (0.0-0.7); Eosinophils Percent Auto 4.9 % (0.9-7.0); Hematocrit 41.2 % (36.0-48.0); Hemoglobin 12.9 g/dL (12.0-16.0); Immature Granulocytes Abs Auto 0.03 10^3/uL (0.00-0.03); Immature Granulocytes Pct Auto 0.5 % (0.0-0.5); Lymphocytes Absolute Auto 1.3 10^3/uL (1.2-3.8); Lymphocytes Percent Auto 21.3 % (20.5-60.0); Mean Corpuscular HGB Conc 31.3 g/dL (29.9-35.2); Mean Corpuscular Hemoglobin 26.9 pg (26.7-34.0); Mean Platelet Volume 10.2 fL (9.5-13.5); Monocytes Absolute Auto 0.6 10^3/uL (0.3-0.8); Monocytes Percent Auto 10.3 % (1.7-12.0); Neutrophils Absolute Auto 3.9 10^3/uL (1.4-6.5); Neutrophils Percent Auto 62.7 % (43.0-75.0); Platelet Count 189 10^3/uL (150-450); Red Blood Count 4.79 10^6/uL (4.20-5.40); Red Cell Distribution Width 14.6 % (11.0-15.0); White Blood Count 6.1 10^3/uL (4.0-11.0)
[2024-02-01 06:12] LABS: INR 0.94; Partial Thromboplastin Time 35.6 sec (22.3-36.2)
[2024-02-01 06:26] LABS: Alanine Aminotransferase 23 U/L (14-59); Albumin Globulin Ratio 0.9; Albumin Level 3.2 g/dL (3.4-5.0); Alkaline Phosphatase 116 U/L (46-116); Anion Gap 11.8; Aspartate Amino Transferase 14 U/L (15-37); BUN Creatinine Ratio 22.4; Bilirubin Total 0.3 mg/dL (0.2-1.0); Calcium 9.3 mg/dL (8.5-10.1); Carbon Dioxide 26.7 mmol/L (21.0-32.0); Chloride 102 mmol/L (98-107); Estimated GFR (African America >60 (>=60); Estimated GFR (Non-African Ame >60 (>=60); Globulin 3.4 g/dL; Glucose 100 mg/dL (74-106); Magnesium 1.7 mg/dL (1.8-2.4); Phosphorus 3.2 mg/dL (2.6-4.7); Potassium 3.5 mmol/L (3.5-5.1); Sodium 137 mmol/L (136-145); Total Protein 6.6 g/dL (6.4-8.2)
--- NOTE | 2024-02-01 07:23 | CA_ITS ---
Patient Name: PEBBLES PEREYRA MR#: [id number] : 1955 Exam Date: 02/01/2024 Ordering Doctor: Shaikh Toshia Pitt . ECHOCARDIOGRAM REPORT PROCEDURE: CA ECHO DOPPLER COMPLETE INDICATIONS: chest pain COMPARISON: None. DESCRIPTION: COMPLETE ECHOCARDIOGRAM Real-time transthoracic echocardiography with 2D, M-mode, spectral and color flow Doppler performed. QUALITY: Technical quality was good. LEFT VENTRICLE: Normal chamber size. Mild concentric left ventricular hypertrophy. Normal systolic function. LV EF: Estimated left ventricular ejection fraction is 65-70%. DIASTOLIC: Grade 2 diastolic dysfunction. ATRIAL SEPTUM: LEFT ATRIUM: Normal chamber size. RIGHT ATRIUM: Normal chamber size. RIGHT VENTRICLE: Normal chamber size. Normal right ventricular systolic function. TRICUSPID VALVE: Normal mobility and thickness. No stenosis with mild regurgitation. Mild pulmonary hypertension. RVSP 39 mmHg MITRAL VALVE: Normal mobility and thickness. No evidence of mitral valve stenosis. There is no mitral annular calcification. Mild mitral regurgitation. AORTIC VALVE: Normal trileaflet appearance. No visible sclerosis. Normal leaflet mobility. No evidence of aortic valve stenosis. DVI 0.6. No aortic regurgitation. AORTIC ROOT: Normal diameter and appearance. PULMONIC VALVE: Normal thickness and mobility. No stenosis. Trivial regurgitation. PERICARDIUM: No evidence of pericardial effusion. IVC: Collapses with inspirations. Normal size. PLEURA: CONCLUSION: 1. Mild concentric left ventricular hypertrophy with normal systolic function. Estimated LVEF is 65 to 70%. 2. Normal right ventricular size and systolic function. 3. Grade 2 diastolic dysfunction. 4. Mild mitral and tricuspid regurgitation. 5. Mildly elevated right-sided pressures. RVSP is 39 mmHg. 6. No pericardial effusion. Adult Echocardiography Procedure Report Left Ventricle LVEDD (3.7 - 5.6 cm): 3.95 cm LVESD (2.2 - 4.0 cm): 2.52 cm LVIVS thickness (0.6 - 1.2 cm): 1.19 cm LVPW thickness (0.5 - 1.0 cm): 1.19 cm e': 0.06 m/s E - e': 15.45 LVOT Max Gradient: 1.95 mm[Hg], 2.79 mm[Hg] LVOT Area (cm2): 0.77 m/s Peak Velocity (LVOT): 0.70 m/s, 0.83 m/s Mean Velocity (LVOT): 0.48 m/s LVOT Diameter 1.87 cm Left Ventricular Ejection Fraction: 65-70 % Left Atrium LA Volume Index (2D A2C): 31.38 ml/m2 Left Atrium Systolic Dimension: 3.85 cm Mitral Valve MV E to A Ratio: 1.19 Mitral Valve A-Wave Peak Velocity: 0.76 m/s Mitral Valve E-Wave Peak Velocity: 0.90 m/s Right Ventricle RV Internal Diastolic Dimension: 2.95 cm Aorta AO Root Diam: 2.75 cm Ascending Ao Diam: 2.58 cm Aortic Valve AoV Area (Peak Nate): 1.40 cm2, 1.28 cm2 AoV Area (VTI): 1.39 cm2, 1.33 cm2 Peak Velocity(Antegrade Flow): 1.50 m/s Peak Gradient(Antegrade Flow): 8.97 mm[Hg] Mean Velocity(Antegrade Flow): 1.02 m/s Mean Gradient(Antegrade Flow): 4.92 mm[Hg] Velocity Time Integral: 37.24 cm Tricuspid Valve Peak Velocity (Regurgitant Flow): 1.84 m/s, 2.99 m/s Pulmonic Valve Mean Gradient: 2.57 mm[Hg], 2.22 mm[Hg] Mean Velocity: 0.76 m/s, 0.68 m/s Peak Velocity: 1.03 m/s Peak Gradient: 3.96 mm[Hg], 4.49 mm[Hg] Right Atrium Right Atrium Systolic Pressure: 47.76 ml, 47.76 ml Dictated by: Levi Peña M.D. on 02/01/2024 at 18:10 Approved by: Levi Peña M.D. on 02/01/2024 at 18:14
[2024-02-01 07:51] LABS: Estimated Average Glucose 120 mg/dL; Glycohemoglobin A1C 5.8 % (4.5-6.2)
[2024-02-01 07:54] LABS: Chol HDL Ratio 3.8; Cholesterol 232 mg/dL (<=200); HDL Cholesterol 61 mg/dL (40-60); Triglycerides 190 mg/dL (<=150)
[2024-02-01] MEDS: CARVEDILOL 25 MG TABLET PO (08:49)
[2024-02-01] MEDS: HYDROCHLOROTHIAZIDE 25 MG TABLET PO (08:49)
[2024-02-01] MEDS: LISINOPRIL 20 MG TABLET 40 MG PO (08:49)
[2024-02-01] MEDS: ASPIRIN 81 MG TABLET.DR PO (08:49)
[2024-02-01] MEDS: OMEPRAZOLE 40 MG CAPSULE.DR PO (08:49)
--- NOTE | 2024-02-01 12:05 | CM.NOTE ---
Rounds made with Dr. Pitt, pt will have echocardiogram today. Dr. Pitt will further discuss plan of care after echo completed. Possible discharge to home this afternoon.
--- NOTE | 2024-02-01 12:19 | CM.NOTE ---
Medicare Outpatient Observation Notice discussed with pt, pt verbalizes understanding and signs paper. Original given to pt and copy placed on pt's chart.
--- NOTE | 2024-02-01 13:32 | P.HP_ITS ---
HPI H&P: HPI History of Present Illness Chief complaint: CHEST PAIN Narrative: HPI and Hospital Course: 69-year-old female with no prior history of congestive heart failure or coronary artery disease was in her usual state of health when she felt that her heart was beating really fast and her chest felt a little funny. She is not sure but she might have felt a little chest discomfort and mild difficulty in breathing. Her symptoms lasted for about half an hour or so and then since arrival to ER, she has been asymptomatic. She has a history of high blood pressure and hyperlipidemia and reports compliance with her medications. She had exercise stress test many years ago for exertional shortness of breath and according to her her workup was negative. She has no significant family history of coronary artery disease in the family. Patient rides her bike 2-3 times a week for about 20 to 30 minutes and denies any exertional symptoms including chest pain, shortness of breath, palpitations, dizziness. She was admitted for overnight observation for chest pain workup. There are no significant EKG changes and her cardiac enzymes are negative. Echocardiogram was performed that did not show any significant cardiac structural abnormalities (official echo reading is pending) No overnight events noted on telemetry. Patient is asymptomatic. It seems very unlikely that her symptoms were because of underlying coronary artery disease as she is fairly active and does not experience any exertional symptoms to suggest underlying coronary artery disease. It is however possible that she may have cardiac arrhythmia that was transient and will benefit from outpatient Holter mo nitor. She will be discharged with Holter monitor for 72 hours. She was instructed to follow-up with her primary care physician within 1 to 2 weeks. Patient was educated on worrisome signs and symptoms and instructed to return to ED if she develop worsening/persistent/progressive chest pain, shortness of breath, palpitations, dizziness. Opioid HPI Opioid Management Most Recent Pain and Opioid Data: Last Pain Scale 2 08/07/23 19:01 Last Pain Assessment 02/01/24 13:16 Last ORT Total Score 1 02/01/24 03:35 Last ORT Risk Category Low Risk 02/01/24 03:35 Review of Systems ROS Status of ROS 10 or more systems reviewed and unremark able except as noted in history and below [facility] Medical History (Updated 02/01/24 @ 13:37 by Shaikh Yoandy MD) Heartburn ?R12 - Heartburn (ICD-10) High cholesterol ?E78.00 - Pure hypercholesterolemia, unspecified (ICD-10) HTN (hypertension) ?I10 - Essential (primary) hypertension (ICD-10) Surgical History (Updated 06/24/23 @ 10:35 by Nila Arnold RN) History of arthroscopic knee surgery ?Z98.890 - Other specified postprocedural states (ICD-10) History of cardiac cath ?Z98.890 - Other specified postprocedural states (ICD-10) Family History (Updated 02/01/24 @ 03:58 by Genie Hoang) Brother Family history of COPD (chronic obstructive pulmonary disease) Family history of diabetes mellitus Mother Family history of cancer Sister Family history of diabetes mellitus Daughter Family history of hypertension Father Family history of myocardial infarction Social History (Updated 02/01/24 @ 04:01 by Genie Hoang) Within the past year, how often did you have a drink containing alcohol: monthly or less Within the past year, how many standard drinks containing alcohol did you have on a typical day: 1 or 2 Within the past year, how often did you have six or more drinks on one occasion: never Total score: 0 Score interpretation: A score less than 3 is consistent with normal alcohol consumption. Smoking status: Never smoker Non-prescribed substance use: denies use Highest level of school completed/degree received: high school graduate Are you now , , , , never or living with a partner: living with partner In a typical week, how many times do you talk on the telephone with family, friends, or neighbors: once per week How often do you get together with friends or relatives: once per week How often do you attend anabaptist or adventism services: never Do you belong to any clubs or organizations such as anabaptist groups unions, fraternal or athletic groups, or school groups: yes Total score: 2 Score interpretation: A score of greater than or equal to 2 indicates the lowest level of social isolation. Little interest or pleasure in doing things: not at all Feeling down, depressed, or hopeless: not at all Feel stressed/tense/nervous/anxious/difficulty sleeping: very much Life stressors: other Life stressor details: family and new job Due to disability, difficulty making decisions: No Do you think of yourself as: straight/heterosexual Gender Identity: female Meds Home Medications and Allergies Home Medications ?Medication ?Instructions ?Recorded ?Confirmed ?Type carvedilol 25 mg tablet 25 mg PO BID 12/29/22 02/01/24 History lisinopril 40 mg tablet 40 mg PO DAILY 12/29/22 02/01/24 History pantoprazole 40 mg tablet,delayed 40 mg PO DAILY 12/29/22 02/01/24 History release rosuvastatin 40 mg tablet 40 mg PO .evry other day 12/29/22 02/01/24 History aspirin 81 mg tablet,delayed 81 mg PO DAILY 06/24/23 02/01/24 History release (Adult Aspirin Regimen) Allergies Allergy/AdvReac Type Severity Reaction Status Date / Time Sulfa (Sulfonamide Allergy Mild Rash Verified 12/29/22 04:17 Antibiotics) Exam Constitutional Vital Signs, click to edit/add: Last Vital Signs Temp 97.8 F 02/01/24 11:58 Pulse 63 02/01/24 11:58 Resp 16 02/01/24 11:58 BP 109/68 02/01/24 11:58 Pulse Ox 95 02/01/24 11:58 O2 Del Method Room Air 02/01/24 11:58 Documenting provider has reviewed patient's vital signs: yes Common normals: no apparent distress and oriented x3 General appearance: cooperative HENMT Common normals: normocephalic and head/scalp atraumatic Head and scalp: normocephalic and atraumatic Eye Common normals: conjunctivae normal and no scleral icterus Conjunctiva: conjunctiva(e) normal Respiratory Common normals: normal respiratory effort and clear to auscultation bilaterally Effort & inspection: able to speak in complete sentences Auscultation: clear to auscultation bilaterally Cardio Common normals: regular rate, S1 normal heart sound and S2 normal heart sound Rate: regular rate Heart sounds: S1 normal and S2 normal GI Common normals: Normal to inspection, nondistended, normoactive bowel sounds present, soft to palpation, non-tender and no hepatosplenomegaly Palpation: soft and no hepatosplenomegaly Extremity Common normals: no clubbing, cyanosis or edema Neuro Common normals: oriented x3, moves all extremities and no focal motor deficits Psych Common normals: mental status grossly normal, denies hallucinations, denies homicidal ideation and denies suicidal ideation Results Labs Labs: Short CBC 02/01/24 02/01/24 Range/Units 00:15 05:50 WBC 6.2 6.1 (4.0-11.0) 10^3/uL Hgb 12.7 12.9 (12.0-16.0) g/dL Hct 38.8 41.2 (36.0-48.0) % Plt Count 211 189 (150-450) 10^3/uL BMP 02/01/24 02/01/24 00:15 05:50 Sodium 137 137 Potassium 3.4 L 3.5 Chloride 102 102 Carbon Dioxide 28.7 26.7 BUN 18.0 19.0 H Creatinine 1.05 H 0.85 Glucose 119 H 100 Calcium 9.3 9.3 Liver Function 02/01/24 Range/Units 05:50 Total Bilirubin 0.3 (0.2-1.0) mg/dL AST 14 L (15-37) U/L ALT 23 (14-59) U/L Alkaline Phosphatase 116 (46-116) U/L Albumin 3.2 L (3.4-5.0) g/dL Assessment and Plan Assessment and Plan (1) Chest pain: Assessment and Plan: No acute EKG changes. Trops x 3 negative. No sig abnormality on ECHO. Symptoms resolved. likely non cardiac as patients does not experience any symptoms concerning for underlying CAD upon exertion and she is fairly active with regular moderate intensity exercise. Qualifiers: Chest pain type: other chest pain Qualified Code(s): R07.89 - Other chest pain (2) Palpitations: Assessment and Plan: Resolved. Ordered Holter for 3 days upon discharge. (3) HTN (hypertension): Assessment and Plan: BP at goal. C/w home medications Qualifiers: Hypertension type: primary hypertension Qualified Code(s): I10 - Essential (primary) hypertension (4) High cholesterol: Assessment and Plan: C/w crestor
--- NOTE | 2024-02-02 14:18 | CM.DCFOLLOWU ---
1st attempt 02/02/24
== END 2024-02-01 14:00 | disposition home or self-care (01) ==
LOC: ER 02-01 01:50 → MS 02-01 03:26
PROVIDERS: Registered Nurse; Admitting Provider Internal Medicine; Emergency Provider Emergency Medicine; PCP Family Medicine; Visit Provider Internal Medicine
DX: R07.89 Other chest pain (principal); R00.2 Palpitations; I10 Essential (primary) hypertension; E78.00 Pure hypercholesterolemia, unspecified; Z79.899 Other long term (current) drug therapy; R06.00 Dyspnea, unspecified
CPT/HCPCS: 36415; 71045; 80048; 80053; 80061; 83036; 83735; 83880; 84100; 84484; 85025; 85610; 85730; 93005; 93242; 93306; 94761; 96372; 96374; 99285; G0378; J0360; J1650

== ENCOUNTER 2024-02-25 08:12 | Outpatient (OUT) | payer OTHER, SELFPAY ==
[2024-02-25 09:12] LABS: Alanine Aminotransferase 28 U/L (14-59); Albumin Globulin Ratio 1.1; Albumin Level 3.8 g/dL (3.4-5.0); Alkaline Phosphatase 126 U/L (46-116); Anion Gap 12.8; Aspartate Amino Transferase 16 U/L (15-37); BUN Creatinine Ratio 29.5; Bilirubin Total 0.5 mg/dL (0.2-1.0); Calcium 9.7 mg/dL (8.5-10.1); Chloride 102 mmol/L (98-107); Estimated GFR (African America >60 (>=60); Estimated GFR (Non-African Ame >60 (>=60); Globulin 3.6 g/dL; Glucose 110 mg/dL (74-106); Potassium 3.8 mmol/L (3.5-5.1); Sodium 141 mmol/L (136-145); Total Protein 7.4 g/dL (6.4-8.2); Triglycerides 175 mg/dL (<=150)
[2024-02-25 09:13] LABS: Chol HDL Ratio 3.8; Cholesterol 259 mg/dL (<=200); HDL Cholesterol 68 mg/dL (40-60)
== END 2024-02-25 08:13 | disposition home or self-care (01) ==
LOC: LAB 08:15
PROVIDERS: PCP Family Medicine; Visit Provider Internal Medicine Interventional Cardiology
DX: E78.5 Hyperlipidemia, unspecified (principal)
CPT/HCPCS: 36415; 80053; 80061

== ENCOUNTER 2024-03-15 11:47 | Outpatient (OUT) | payer OTHER, SELFPAY ==
--- OUTSIDE RECORDS SUMMARY | 2024-03-15 12:09 | XMS_ITS | CCD ---
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 Name Role Phone Alex Horton Unavailable Jeffy Ramos Unavailable MD Jeffy Ramos Attending Provider RICHARD, DR JEFFY Smith Admitting Unavailable RAMOS, [...] RAMOS, DR JEFFY Smith Primary Care Unavailable ELTAADA, DR HAQUE Consulting Unavailable NON STAFF Primary Care Provider UnavailDO Alex Key Attending Provider Gucci Meyers Unavailable Marine Watson Unavailable NON STAFF Primary Care Provider UnavailMD Gucci Christine Attending Provider Jeffy Ramos Admitting Unavailable Jeffy Ramos Attending Unavailable NON STAFF Primary Care Unavailable Gucci Meyers Admitting UnavailGucci Christine Attending UnavailAlex Kye Admitting Unavailable Alex Horton Attending Unavailable NON STAFF Primary Care Unavailable JEFFY RAMOS Primary Care Physician [phone] YamilkaLissa jaramillo Unavailable URBAN, Jean Paul R Attending Unavailable URBAN, Jean Paul R Attending Unavailable URBAN, Jean Paul R Referring Unavailable URBAN, Jean Paul R Attending Unavailable URBAN, Jean Paul R Admitting Unavailable URBAN, Jean Paul R Attending Unavailable URBAN, Jean Paul R Referring Unavailable ELTAHAWY, EHAB Attending Unavailable ELTAHAWY, EHAB Attending Unavailable Allergies Allergy Classification Reported Allergen(s) Allergy Type Date of Onset Reaction(s) Facility (17 sources) Sulf-10 Drug allergy Unknown [facility] Other (4 sources) Sulfonamides (Antibiotic); Translations: [SULFA (SULFONAMIDE ANTIBIOTICS)] Allergy to substance 06-02-20 14 Rash [facility] (3 sources) steriod Propensity to adverse reactions 10-17-19 22 Redness of Skin [facility] (1 source) Sulfonamides (Antibiotic) Drug allergy (disorder) 01-10-20 13 [facility] Repository (7 sources) HMG-CoA reductase inhibitor Drug allergy 08-27-19 14 Unknown [facility] Other (12 sources) Penicillin Drug Allergy 07-11-19 17 Unknown [facility] Other (3 sources) Allergies Reconciled Propensity to adverse reactions 04-30-20 21 Unknown [facility] Other (13 sources) Substance with sulfonamide structure and antibacterial mechanism of action (substance) Drug allergy 10-19-19 19 Unknown [facility] Other (3 sources) patient allergy list reviewed by nurse or physicia Propensity to adverse reactions 11-11-19 19 Comment:Done [facility] Other (7 sources) Statins Depletion *DIETARY PRODUCTS/DIETARY MANAGE Propensity to adverse reactions Unknown [facility] Other (4 sources) Sulfamethoxazole; Translations: [sulfamethoxazole ] Drug Allergy .... [facility] (1 source) rosuvastatin; Translations: [ROSUVASTATIN] Drug Allergy 02-16-20 [facility] Repository Medications Current Medications Medication Drug Class(es) Dates Sig (Normalized) Sig (Original) Aspir-81 (20 sources) Aspir-81 Active aspirin 81 mg oral tablet (3 sources) Platelet Aggregation Inhibitor, Nonsteroidal Anti-inflammatory Drug Start: 10-23-19 take 1 tablet by mouth once daily aspirin 81 mg oral tablet 81 mg = 1 tab(s), Oral, Daily, Refills(s) 0, Prophylaxis Start Date: 10/22/16 Status: Ordered carvedilol 25 mg oral tablet (20 sources) alpha-Adrenergic Kalpana, beta-Adrenergic Kalpana Start: 10-17-19 carvedilol 25 mg Tab Refills(s) 0 Start Date: 06/29/23 Status: Ordered escitalopram 10 mg oral tablet (10 sources) Serotonin Reuptake Inhibitor Start: 04-09-20 escitalopram 10 mg Tab Refills(s) 0 Start Date: 06/29/23 Status: Ordered estradiol 0.1 mg/ml vaginal cream (1 source) Estrogen Start: 10-16-19 estradiol 0.1 mg/g Vag Crm 1 gm, Vaginal, As Directed, 42.5 gm, Refill(s) 4, Apply with plunger 2x per week. Also pply around outer urethra with finger., [facility], 149, cm, 10/16/23 10:35:00 EDT, Height/Length [...] procedure, # 2 tab(s), Refills(s) 0, Pharmacy: [facility], 150, cm, 06/29/23 11:34:00 EST, Height/Length [...] Her - as directed Orally Active nystatin 628752 unt/ml topical cream (11 sources) Polyene Antifungal Nystatin 1000 00 UNIT/GM 1 application Externally Twice a day for 10 days Not-Taking/PRN Nystatin 785168 UNIT/GM 1 application Externally Twice a day for 10 days Active PEG 3350-KCl-Na Bicarb-NaCl (1 source) PEG 3350-KCl-Na Bicarb-NaCl Not-Taking traMADol hydrochloride 50 mg oral tablet (4 sources) Opioid Agonist Start: 04-02-2022 take 1 tablet by mouth every four to six hours as needed traMADol HCl 50 MG 1 tablet as needed Orally every 4-6 hours as needed for 7 days VANESSA # [id number] Mar, Not-Taking triamcinolone acetonide 40 mg/ml injectable [...] 11-16-2014 Resolved: 10-14-2021 Episodic Nonspecific chest pain (8 sources) Chest pain; Translations: [Other chest pain] Onset: 08-25-2016 Episodic Other aftercare (1 source) 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; Translations: [[facility] CURRENT USE OF ASPIRIN] Onset: 05-07-2022 Episodic Other aftercare (1 source) Other superintendent terminal (current) drug therapy; Translations: [OTH [facility] CURRENT DRUG THERAPY] Onset: 05-07-2022 Episodic Other [...] Test Name Value Interpretation Reference Range Facility Office Visiton 02-16-2024 Follow-up visit [id number] Pebbles Johnson 1955 Date Provider Department Center 02/16/2024 CYNTHIA PARKER Family History Problem Relation Age of Onset Cancer Other Coronary artery disease Other Depression Other Family Status - Relation Status Age at Other Level of Service:06278 MD OFFICE/OUTPATIENT ESTABLISHED MOD MDM 30 MIN Normal [facility] 36on 11-11-2023 36 PT INFORMED Normal [facility] Office Visiton 10-19-2023 Follow-up visit [id number] Pebbles Johnson 1955 Provider Department Center 10/19/2023 CYNTHIA PARKER Family History Problem Relation Age of Onset Cancer Other Coronary artery disease Other Depression Other Family Status - Relation Status Age at Other Level of Service:69337 MD OFFICE/OUTPATIENT ESTABLISHED MOD MDM 30 MIN Normal [facility] Orders Onlyon 10-19-2023 Orders Only [id number] Pebbles Johnson 1955 Provider Department Center 10/19/2023 EVERARDO GUTIERREZ Family History Problem Relation Age of Onset Cancer Other Coronary artery disease Other Depression Other Family Status - Relation Status Age at Other Normal [facility] Ambulatory Visit Summaryon 0 10-16-2023 Ambulatory Visit Summary PEBBLES JOHNSON :1955 Visit Date:10/16/2023 Ambulatory Visit Instructions Your Diagnosis Unspecified urethral stricture, female Mixed incontinence Incontinence without sensory awareness Vaginal atrophy Asymptomatic microscopic hematuria Your Care Team Attending Physician - MARYAM BEAVERS, Jean Paul Burton Primary Care Physician - RICHARD BEAVERS, JEFFY Referring Physician - MARYAM BEAVERS, Jean Paul Burton This Is Your Medications List estradiol topical [...] Following Appointments Follow Up with MARYAM BEAVERS, OELKSANDR Topete When: Where: [address] [place] [address]- Medications What How Much When Instructions New estradiol topical (estradiol 0.1 mg/ g Vag Crm) 1 Gram Vaginal As Directed Refills: 4 Apply with plunger 2x per week. Also pply around outer urethra with finger. Pickup at [facility] Unchanged aspirin (aspirin 81 mg oral [...] physician if questions or concerns Pharmacy Information [facility]: [address] [place], [place] [phone] Allergies sulfamethoxazole (....) Problems Ongoing - Any [...] symptoms? Sympto (more content not included)... Normal [facility] Patient Educationon 10-16-19 Patient Education Obstetrics and [...] to the vagina. General instructions ? Take guka-bkt-egrvqpf and prescription medicines only as told by [...] a cot (more content not included)... Normal [facility] Urology Office/Clinic Noteon 10-16-2023 Urology Office/Clinic Note [...] Information MARYAM BEAVERS, Jean Paul Burton, URL [facility] [place] [id number]- Additional Instructions: 6 months Patient Education Vaginitis [...] virus vaccine, inactivated 03/22/2022 Recorded SARS-CoV-2 (COVID-19) [id number] 03/22/2022 Recorded SARS-CoV-2 (COVID-19) mRNA BNT-162b2 vax 05/23/2021 Recorded influenza virus vaccine, inactivated 04/01/2021 Recorded SARS-CoV-2 (COVID-19) mRNA (more content not included)... [facility] Comment on above: Result Comment: Elec tronically Signed By: Jean Paul URBAN MD\.br\Date and Time Signed: 10/16/23 11:13 EDT\.br\Electronically Co-Signed By: Katiuska Hobbs.br\Date and Time Co-Signed: 10/16/23 11:11 EDT Consent for Procedure/Surger yon 07-28-2023 Consent for Procedure/Surgery [id number]# 1.00TIFF [facility] Consent for Treatmenton 07-16 Consent for Treatment [id number]#1 .00TIFF [facility] IntraOperative Documentson 0 07-28-2023 IntraOperative Documents [id number]# 1.00TIFF Normal [facility] IntraOperative Documents [id number] 1.00TIFF Normal [facility] Main OR Intraoperative Recor don 07-28-2023 Main OR Intraoperative Record IntraOp Document Type FTURO Summary Primary Physician: Jean Paul URBAN MD Finalized Date/Time: 07/28/23 11:03:27 Pt. Name: RODDYPEBBLES/Sex: 1955 Female Med Rec #: [id number] Physician: Jean Paul URBAN MD Financial #: [id number] Pt. Type: O Room/Bed: / Admit/Disch: 07/28/23 08:21:27 - Institution: Case Times FTURO Entry 1 Patient Times In Room 07/28/23 10:50:00 Out Room 07/28/23 11:05:00 Procedure Times Start 07/28/23 10:54:00 Stop 07/28/23 11:01:00 Anesthesia Times Last Modified By: Juan C BLAKELY, KAY, Genesis 07/28/23 11:01:52 Case Attendance FTURO Entry 1 Entry 2 Entry 3 Case Attendee MARYAM BEAVERS, Jean Paul Irizarry RN, CNOR, [place] PEÑA, Reina Hurtado Role Performed Surgeon - Primary Web Marketing Coordinator - Primary Scrub - Primary Time In [...] As Preop No HEMATURIA Postop Diagnosis urethral [id number] Outcomes Met? Yes Last Modified By: KAY [...] Position Verified Availability Equipment, Medication Time Out Jean Paul URBAN MD, Verified (If Participants Juan C BLAKELY, JUANISOR, Applicable) [place] Hurtado CST, Kimberly A Time [...] KAY Irizarry RN, Ruthann 07/28/23 11:03 Normal [facility] Main OR Preoperative Recordo n 07-28-2023 Main OR Preoperative Record Holding Area Document Type FTURO Summary Primary Physician: Jean Paul URBAN MD Finalized Date/Time: 07/28/23 10:57:37 Pt. Name: JOHNSONPEBBLES./Sex: 1955 Female Med Rec #: [id number] Physician: Jean Paul URBAN MD Financial #: [id number] Pt. Type: O Room/Bed: / Admit/Disch: 07/28/23 [...] Complaints of Pain: No Skin Integrity Intact, [place], Warm, & Dry Vitals - EU Blood Pressure 194/80 Pulse 63 bpm Respirations 18 br/min SPO2 99 % RN Reviewed Yes Last Modified By: KAY Irizarry RN, Ruthann 07/28/23 10:57:35 Finalized By: KAY Irizarry RN, Ruthann Document Signatures Signed By: Allen SUNStarr Freedom 07/28/23 10:24 KAY Irizarry RN, Ruthann 07/28/23 10:57 Normal [facility] Operative Reporton Operative Report Patient: PEBBLES JOHNSON [...] urine. The Urethra was dilated to: 30 Austrian w/ sounds. Devices Implanted: None. Removal: Cystoscope is removed, The patient tolerated it well. Postoperative Information Discharge: Patient is discharged home with antibiotic coverage, Follow up arranged. Normal [facility] Comment on above: Result Comment: Elec tronically Signed By: Jean Paul URBAN MD\.br\Date and Time Signed: 07/28/23 11:10 EST COVID + FLU Quick Testingon 07-18-2023 SARS-CoV-2 (COVID-19) RNA ALEXA+probe Ql (Unsp spec) Negative [facility] Other COVID + FLU Quick Testing Negative [facility] Other Formson 06-30-2023 Forms [id number]#1 .00TIFF Normal [facility] Screenson 06-30-2023 Screens [id number]# 1.00TIFF Normal [facility] Ambulatory Visit Summaryon 0 06-29-2023 Ambulatory Visit Summary PEBBLES JOHNSON :1955 Visit Date:06/29/2023 Ambulatory Visit Instructions Your Diagnosis Mixed incontinence Incontinence without sensory awareness Asymptomatic microscopic hematuria History of UTI Tests Performed Urnls Dip Stick Auto w/o Microscopy POC 41869 Your Care Team Attending Physician - MARYAM [...] Up with MARYAM BEAVERS, Jean Paul Burton, URL When: Comments: sched cysto/urodynamics Where: [facility] [address] , [place] [phone] Medications What How Much When Instructions New ciprofloxacin (Cipro 500 mg Tab) 1 Tablets By Mouth Every day take one tab day before procedure and one tab after procedure Pickup at [id number] Unchanged aspirin (aspirin 81 mg oral tablet) [...] physician if questions or concerns Pharmacy Information [facility][id number]: [address] [place], [place] [phone] Test Results Urnls Dip Stick Auto w/o Microscopy POC 15277 (06/29/2023) Bilirubin Urine Dipstick - Negative Blood Urine Dipstick - 1+ Small Leukocytes Urine Dipstick - Negative Nitrite Urine Dipstick - Negative Protein Urine Dipstick - Trace Specific [place] Urine Dipstick - >=1.030 Urine Appearance Urine [...] diabetes med (more content not included)... Normal [facility] Patient Educationon 06-29-19 Patient Education Urology Urodynamic [...] including vitamins, herbs, eye drops, creams, and mdyg-hlv-nbdrxcm medicines. ? Whether you are or may [...] results be (more content not included)... Normal [facility] Urology Office/Clinic Noteon 06-29-2023 Urology [...] water intake. Follow-up With When Contact Information Jean Paul URBAN MD, L [facility] [address] [place] [phone] Additional Instructions: sched cysto/urodynamics Patient Education Urodynamic [...] Oral, Daily (more content not included)... Normal [facility] Comment on above: Result Comment: Elec tronically Signed By: Jean Paul URBAN MD\.br\Date and Time Signed: 06/29/23 11:59 EST\.br\Electronically Co-Signed By: Lucia Hensley\.br\Date and Time Co-Signed: 06/29/23 11:57 EST US venous duplex LE Sosan US venous duplex LE YUE [facility] Main [address] [address] Ultrasound Report Signed Patient: Pebbles Johnson MR#: [id number] : 1955 Acct:[id number] Age/Sex: 68 / F ADM Date: 06/03/23 Loc: [facility] Room: Type: [facility] CLI Attending Dr: Gucci Meyers MD Ordering [...] Gucci Meyers MD06/03/2023 12:58 PM Dictation Location: [id number] Tech: Sondra Longo Transcribed By: SADAI 06/03/23 1258 Dictated By: Gucci Meyers MD 06/03/23 1258 Signed By: 06/03/23 1258 [facility] XR knee LT 3V - NOT FOR ER U Danny 02-23-2023 XR knee LT 3V - NOT FOR ER USE [facility] Main [place] [address] [place] [address] XRay Report Signed Patient: Pebbles Johnson MR#: [id number] : 1955 Acct:[id number] Age/Sex: 68 / F ADM Date: 02/23/23 Loc: [facility] Room: Type: [facility] CLI Attending Dr: Alex Horton DO Copies to: [...] PROCESS. Impression dictated by: Marc Mak Jr., Freedom.OVidal02/23/2023 3:35 PM Dictation Location: [place] [address] Transcribed By: [facility] 02/23/23 1535 Dictated By: Marc Mak Jr, DO 02/23/23 1534 Signed By: 02/23/23 1535 Normal [facility] MG MAMM SCREEN 3D FELICIA CADon 09-24-2022 MG MAMM SCREEN 3D FELICIA CAD Patient: PEBBLES JOHNSON Exam Date: 09/24/2022 : 1955 Gender:F Ordering : DR JEFFY RAMOS M.D. Admission #: [id number] Family : Order #: [id number] CLICK HERE TO VIEW EXAM RADIOLOGY REPORT [...] kidney cancer at age 31. LOCATION: [facility] BREAST COMPOSITION: Heterogeneously dense,which may [...] Cesar M.D. on 09/24/2022 at 13:25 Normal [facility] Urinalysis - DIPSTICKon 09-13 Appearance (U) clear [employer] Other Bilirubin Ql (U) small [employer] [facility] [employer] Other Color (U) yellow [facility] Other Glucose Ql (U) Negative [employer] Other Hemoglobin Ql (U) Negative [employer] Other Ketones Ql (U) off chart [employer] Other Leukocyte esterase Test strip Ql (U) Negative [facility] Other Nitrite Ql (U) Negative [employer] Other pH (U) 5.0 [pH] [facility] Other Protein Ql (U) Negative [employer] Other Specific gravity (U) [Rel density] 1.010 [facility] Other Urobilinogen (U) [Mass/Vol] 0.2 mg/dL [facility] Other Urinalysis - DIPSTICK [facility] Other Urine Cultureon 09-24-2022 Bacteria identified Cx Nom (U) <9,000 colonies/ml mixed bacterial skin contaminants 2 Days PERFORMED BY: [facility] [address] [place] [address] PATHOLOGIST SHOE SALESMAN DARRICK GARZA M.D. Normal [facility] Comment on above: Performed By: #### C UU #### [facility] [address] LIPID PROFILEon 07-05-2022 CHOL-HDL RATIO NORM SEE BELOW Normal [facility] Comment on above: Result Comment: 3.3 - 4.4 LOW RISK 4.4 - 7.1 AVERAGE RISK 7.1 - 11.0 MODERATE RISK >11.0 HIGH RISK Performed By: #### L IPID #### [facility] [address] [place] [address] [address] Carlos Barlow Cholesterol [Mass/Vol] 181 mg/dL Normal <=200 [facility] Comment on above: Performed By: #### L IPID #### [facility] [address] [place] [address] [address] Carlos Barlow Cholesterol in HDL [Mass/Vol] 63 mg/dL Critically high 40-60 [facility] Comment on above: Performed By: #### L IPID #### [facility] [address] [place] [address] [address] Carlos Barlow Cholesterol in LDL [Mass/Vol] 88.0 mg/dL Normal [facility] Comment on above: Performed By: #### L IPID #### [facility] [address] [place] [address] [address] Carlos Barlow Cholesterol.total/C holesterol in HDL [Mass ratio] 2.9 {ratio} Normal [facility] Comment on above: Performed By: #### L IPID #### [facility] [address] [place] [address] [address] Carlos Barlow HDL NORMAL > or = 60 mg/dl - LO W CARDIOVASCULAR RISK <40 mg/dl - HIGH CARDIOVASCULAR RISK Normal [facility] Comment on above: Performed By: #### L IPID #### [facility] [address] [place] [address] [address] Carlos Barlow LDL CALC NORMAL SEE BELOW Normal [facility] Comment on above: Result Comment: <100 mg/dl OPTIMAL 100 - 129 mg/dl NEAR OR ABOVE OPTIMAL 130 - 159 mg/dl BORDERLINE HIGH 160 - 189 mg/dl HIGH >190 mg/dl VERY HIGH Performed By: #### L IPID #### [facility] [address] [place] [address] [address] Carlos Barlow Triglyceride [Mass/Vol] 150 mg/dL Normal <=150 [facility] Comment on above: Performed By: #### L IPID #### [facility] [address] [place] [address] [address] Carlos Barlow VLDL CALC 30.0 mg/dL Normal [facility] Comment on above: Performed By: #### L IPID #### [facility] [address] [place] [id number] aCrlos Barlow XR CHEST 1 Von 05-05-2022 XR [...] RO BONILLA Date: 2022-05-05 06:41 Normal [facility] XR NECK SOFT TISSUEon 2021 [...] RO BONILLA Date: 2022-05-05 06:42 Normal [facility] XR LSPINE MIN 4 VIEWSon [...] by: KIRK CESAR Date: 2022-04-01 06:49 Normal [facility] LIPID PROFILEon 03-10-2022 CHOL-HDL RATIO NORM SEE BELOW Normal [facility] Comment on above: Result Comment: 3.3 - 4.4 LOW RISK 4.4 - 7.1 AVERAGE RISK 7.1 - 11.0 MODERATE RISK >11.0 HIGH RISK Performed By: #### B MP, LIPID, LIVER #### [facility] [address] [place] [address] [address] Carlos Barlow Cholesterol [Mass/Vol] 186 mg/dL Normal <=200 [facility] Comment on above: Performed By: #### B MP, LIPID, LIVER #### [facility] [address] [place] [address] [address] Carlos Barlow Cholesterol in HDL [Mass/Vol] 61 mg/dL Critically high 40-60 [facility] Comment on above: Performed By: #### B MP, LIPID, LIVER #### [facility] [address] [place] [address] [address] Carlos Barlow Cholesterol in LDL [Mass/Vol] 90.4 mg/dL Normal [facility] Comment on above: Performed By: #### B MP, LIPID, LIVER #### [facility] [address] [place] [address] [address] Carlos Barlow Cholesterol.total/C holesterol in HDL [Mass ratio] 3.0 {ratio} Normal [facility] Comment on above: Performed By: #### B MP, LIPID, LIVER #### [facility] [address] [place] [address] Dr. Carlos Barlow HDL NORMAL > or = 60 mg/dl - LO W CARDIOVASCULAR RISK <40 mg/dl - HIGH CARDIOVASCULAR RISK Normal [facility] Comment on above: Performed By: #### B MP, LIPID, LIVER #### [facility] [address] [place] [address] Dr. Carlos Barlow LDL CALC NORMAL SEE BELOW Normal [facility] Comment on above: Result Comment: <100 mg/dl OPTIMAL 100 - 129 mg/dl NEAR OR ABOVE OPTIMAL 130 - 159 mg/dl BORDERLINE HIGH 160 - 189 mg/dl HIGH >190 mg/dl VERY HIGH Performed By: #### B MP, LIPID, LIVER #### [facility] [address] [place] [address] [address] Carlos Barlow Triglyceride [Mass/Vol] 173 mg/dL Critically high <=150 [facility] Comment on above: Performed By: #### B MP, LIPID, LIVER #### [facility] [address] [place] [address] [address] Carlos Barlow VLDL CALC 34.6 mg/dL Normal [facility] Comment on above: Performed By: #### B MP, LIPID, LIVER #### [facility] [address] [place] [address] [address] Carlos Barlow LIVER PROFILEon 03-10-2022 Albumin [Mass/Vol] 3.6 g/dL Normal 3.4-5.0 [facility] Comment on above: Performed By: #### B MP, LIPID, LIVER #### [facility] [address] [place] [address] Dr. Carlos Barlow Albumin/Globulin [Mass ratio] 1.1 {ratio} Normal [facility] Comment on above: Performed By: #### B MP, LIPID, LIVER #### [facility] [address] [place] [address] Dr. Carlos Barlow ALP [Catalytic activity/Vol] 92 U/L Normal 46-116 [facility] Comment on above: Performed By: #### B MP, LIPID, LIVER #### [facility] [address] [place] [address] Dr. Carlos Barlow ALT [Catalytic activity/Vol] 20 U/L Normal 14-59 [facility] Comment on above: Performed By: #### B MP, LIPID, LIVER #### [facility] [address] [place] [address] Dr. Carlos Barlow AST [Catalytic activity/Vol] 16 U/L Normal 15-37 [facility] Comment on above: Performed By: #### B MP, LIPID, LIVER #### [facility] [address] [place] [address] [address] Carlos Barlow BILI, CONJUGATED 0.1 mg/dL Normal 0.0-0.2 [facility] Comment on above: Performed By: #### B MP, LIPID, LIVER #### [facility] [address] [place] [address] [address] Carlos Barlow Bilirubin [Mass/Vol] 0.3 mg/dL Normal 0.2-1.0 [facility] Comment on above: Performed By: #### B MP, LIPID, LIVER #### [facility] [address] [place] [address] [address] Carlos Barlow Globulin (S) [Mass/Vol] 3.4 g/dL Normal [facility] Comment on above: Performed By: #### B MP, LIPID, LIVER #### [facility] [address] [place] [address] [address] Carlos Barlow Protein [Mass/Vol] 7.0 g/dL Normal 6.4-8.2 [facility] Comment on above: Performed By: #### B MP, LIPID, LIVER #### [facility] [facility] [address] [address] [address] Carlos Barlow PROF CHEM 8 (BAS METB)on Anion gap [Moles/Vol] 12.0 mmol/L Normal [facility] Comment on above: Performed By: #### B MP, LIPID, LIVER ####[facility] [address] [address]DrVidal Barlow Calcium [Mass/Vol] 9.6 mg/dL Normal 8.5-10.1 [facility] Comment on above: Performed By: #### B MP, LIPID, LIVER ####[facility] [address] [address]DrVidal Barlow Chloride [Moles/Vol] 105 mmol/L Normal 98-107 [facility] Comment on above: Performed By: #### B MP, LIPID, LIVER ####[facility] [address] [address]DrVidal Barlow CO2 [Moles/Vol] 26.5 mmol/L Normal 21.0-32.0 [facility] Comment on above: Performed By: #### B MP, LIPID, LIVER ####[facility] [address] [id number]. Carlos Barlow Creatinine [Mass/Vol] 0.89 mg/dL Normal 0.55-1.02 [facility] Comment on above: Performed By: #### B MP, LIPID, LIVER ####[facility] [address] [id number]. Dulcelan Barlow EGFR-AF [facility] >60 Normal >=60 [facility] Comment on above: Performed By: #### B MP, LIPID, LIVER ####[facility] [address] [id number]. Carlos Barlow EGFR-NON AF [facility] >60 Normal >=60 [facility] Comment on above: Performed By: #### B MP, LIPID, LIVER ####[facility] [address] [address]Dr. Carlos Barlow Glucose [Mass/Vol] 116 mg/dL Critically high 74-106 [facility] Comment on above: Performed By: #### B MP, LIPID, LIVER ####[facility] [address] [phone]. Carlos Barlow Potassium [Moles/Vol] 4.0 mmol/L Normal 3.5-5.1 [facility] Comment on above: Performed By: #### B MP, LIPID, LIVER ####[facility] [address] [phone]. Carlos Barlow Sodium [Moles/Vol] 139 mmol/L Normal 136-145 [facility] Comment on above: Performed By: #### B MP, LIPID, LIVER ####[facility] [address] [phone]. Carlos Barlow Urea nitrogen [Mass/Vol] 24.0 mg/dL Critically high 7.0-18.0 [facility] Comment on above: Performed By: #### B MP, LIPID, LIVER ####[facility] [address] [phone]. Carlos Barlow Urea nitrogen/Creatinine [Mass ratio] 26.9 mg/mg Normal [facility] Comment on above: Performed By: #### B MP, LIPID, LIVER ####[facility] [address] [phone]. Carlos Barlow CBC AUTO DIFFon 02-19-2022 BASO # 0.0 103/ul Normal 0.0-0.1 [facility] Comment on above: Performed By: #### C BC ####[facility] [address] [phone]. Dulceulices Barlow Basophils/100 WBC (Bld) 0.4 % Normal 0.2-2.0 [facility] Comment on above: Performed By: #### C BC ####[facility] [address] [place], [place] [id number]. Cralos Cain EO # 0.2 103/ul Normal 0.0-0.7 [facility] Comment on above: Performed By: #### C BC ####[facility] [address] [place], [place] [address]Dr. Dulceulices Barlow Eosinophils/100 WBC (Bld) 4.1 % Normal 0.9-7.0 [facility] Comment on above: Performed By: #### C BC ####[facility] [address] [place], [place] [address]Dr. Carlos Cain Erythrocyte distribution width (RBC) [Ratio] 13.2 % Normal 11.0-15.0 [facility] Comment on above: Performed By: #### C BC ####[facility] [address] [place], [place] [address]Dr. Carlos Barlow Hematocrit (Bld) [Volume fraction] 37.9 % Normal 36.0-48.0 [facility] Comment on above: Performed By: #### C BC ####[facility] [address] [place], [place] [id number]. Carlos Barlow Hemoglobin (Bld) [Mass/Vol] 12.7 g/dL Normal 12.0-16.0 [facility] Comment on above: Performed By: #### C BC ####[facility] [address] [place], [place] [id number]. Carlos Barlow IG # 0.02 10e3/ul Normal 0.00-0.03 [facility] Comment on above: Performed By: #### C BC ####[facility] [address] [phone]. Dulceulices Barlow IG % 0.4 % Normal 0.0-0.5 [facility] Comment on above: Performed By: #### C BC ####[facility] [address] [phone] Carlos Cain LYMPH # 0.9 103/ul Critically low 1.2-3.8 [facility] Comment on above: Performed By: #### C BC ####[facility] [address] [phone] Dulceulices Barlow Lymphocytes/100 WBC (Bld) 17.7 % Critically low 20.5-60.0 [facility] Comment on above: Performed By: #### C BC ####[facility] [address] [address]Dr. Carlos Balrow MANUAL DIFF REQ NO Normal [facility] Comment on above: Performed By: #### C BC ####[facility] [address] [phone]. Carlos Cain MCH (RBC) [Entitic mass] 28.4 pg Normal 26.7-34.0 [facility] Comment on above: Performed By: #### C BC ####[facility] [address] [phone] Carlos Cain MCHC (RBC) [Mass/Vol] 33.5 g/dL Normal 29.9-35.2 [facility] Comment on above: Performed By: #### C BC ####[facility] [address] [id number] Dulceulices Barlow MCV (RBC) [Entitic vol] 84.8 fL Normal 81.0-99.0 [facility] Comment on above: Performed By: #### C BC ####[facility] [address] [id number] Barlow MONO # 0.7 103/ul Normal 0.3-0.8 [facility] Comment on above: Performed By: #### C BC ####[facility] [address] [phone]. Carlos Barlow Monocytes/100 WBC (Bld) 13.4 % Critically high 1.7-12.0 [facility] Comment on above: Performed By: #### C BC ####[facility] [address] [id number]. Carlos Barlow NEUT # 3.3 103/ul Normal 1.4-6.5 [facility] Comment on above: Performed By: #### C BC ####[facility] [address] [phone]. Carlos Barlow Neutrophils/100 WBC (Bld) 64.0 % Normal 43.0-75.0 [facility] Comment on above: Performed By: #### C BC ####[facility] [address] [phone]. Carlos Barlow Platelet mean volume (Bld) [Entitic vol] 10.5 fL Normal 9.5-13.5 [facility] Comment on above: Performed By: #### C BC ####[facility] [address] [id number]. Carlos Barlow PLT 252 103/ul Normal 150-450 [facility] Comment on above: Performed By: #### C BC ####[facility] [address] [phone]. Carlos Barlow RBC 4.47 106/ul Normal 4.20-5.40 [facility] Comment on above: Performed By: #### C BC ####[facility] [address] [id number]. Carlos Barlow WBC 5.2 103/ul Normal 4.0-11.0 [facility] Comment on above: Performed By: #### C BC ####[facility] [address] [phone]. Carlos Barlow LIPID PROFILEon 02-19-2022 CHOL-HDL RATIO NORM SEE BELOW Normal [facility] Comment on above: Result Comment: 3.3 - 4.4 LOW RISK 4.4 - 7.1 AVERAGE RISK 7.1 - 11.0 MODERATE RISK >11.0 HIGH RISK Performed By: #### C MP, LIPID #### [facility] [address] [address] [address] Carlos Barlow Cholesterol [Mass/Vol] 241 mg/dL Critically high <=200 [facility] Comment on above: Performed By: #### C MP, LIPID #### [facility] [address] [address] [address] Carlos Barlow Cholesterol in HDL [Mass/Vol] 51 mg/dL Normal 40-60 [facility] Comment on above: Performed By: #### C MP, LIPID #### [facility] [address] [place] [address] Dr. Carlos Barlow Cholesterol in LDL [Mass/Vol] 133.8 mg/dL Normal [facility] Comment on above: Performed By: #### C MP, LIPID #### [facility] [address] [address] [address] Carlos Barlow Cholesterol.total/C holesterol in HDL [Mass ratio] 4.7 {ratio} Normal [facility] Comment on above: Performed By: #### C MP, LIPID #### [facility] [address] [place] [address] Dr. Carlos Barlow HDL NORMAL > or = 60 mg/dl - LO W CARDIOVASCULAR RISK <40 mg/dl - HIGH CARDIOVASCULAR RISK Normal [facility] Comment on above: Performed By: #### C MP, LIPID #### [facility] [address] [place] [address] Dr. Carlos Barlow LDL CALC NORMAL SEE BELOW Normal [facility] Comment on above: Result Comment: <100 mg/dl OPTIMAL 100 - 129 mg/dl NEAR OR ABOVE OPTIMAL 130 - 159 mg/dl BORDERLINE HIGH 160 - 189 mg/dl HIGH >190 mg/dl VERY HIGH Performed By: #### C MP, LIPID #### [facility] [address] [place] [address] Dr. Carlos Barlow Triglyceride [Mass/Vol] 281 mg/dL Critically high <=150 [facility] Comment on above: Performed By: #### C MP, LIPID #### [facility] [address] [address] [address] Carlos Barlow VLDL CALC 56.2 mg/dL Normal [facility] Comment on above: Performed By: #### C MP, LIPID #### [facility] [address] [address] [address] Carlos Barlow PROF 14(COMP METB)on 022 Albumin [Mass/Vol] 3.3 g/dL Critically low 3.4-5.[address] [facility] Comment on above: Performed By: #### C MP, LIPID #### [facility] [address] [address] [address] Carlos Barlow Albumin/Globulin [Mass ratio] 0.9 {ratio} Normal [facility] Comment on above: Performed By: #### C MP, LIPID #### [facility] [address] [place] [address] Dr. Carlos Barlow ALP [Catalytic activity/Vol] 96 U/L Normal 46-116 [facility] Comment on above: Performed By: #### C MP, LIPID #### [facility] [address] [place] [address] Dr. Carlos Barlow ALT [Catalytic activity/Vol] 21 U/L Normal 14-59 [facility] Comment on above: Performed By: #### C MP, LIPID #### [facility] [address] [address] [address] Carlos Barlow Anion gap [Moles/Vol] 7.2 mmol/L Normal [facility] Comment on above: Performed By: #### C MP, LIPID #### [facility] [address] [place] [address] Dr. Carlos Barlow AST [Catalytic activity/Vol] 14 U/L Critically low 15-37 [facility] Comment on above: Performed By: #### C MP, LIPID #### [facility] [address] [place] [address] Dr. Carlos Barlow Bilirubin [Mass/Vol] 0.2 mg/dL Normal 0.2-1.0 [facility] Comment on above: Performed By: #### C MP, LIPID #### [facility] [address] [address] [address] Carlos Barlow Calcium [Mass/Vol] 9.5 mg/dL Normal 8.5-10.1 [facility] Comment on above: Performed By: #### C MP, LIPID #### [facility] [address] [address] [address] Carlos Barlow Chloride [Moles/Vol] 103 mmol/L Normal 98-107 [facility] Comment on above: Performed By: #### C MP, LIPID #### [facility] [address] [address] [address] Carlos Barlow CO2 [Moles/Vol] 32.1 mmol/L Critically high 21.0-32.0 [facility] Comment on above: Performed By: #### C MP, LIPID #### [facility] [address] [place] [address] Dr. Carlos Barlow Creatinine [Mass/Vol] 0.80 mg/dL Normal 0.55-1.02 [facility] Comment on above: Performed By: #### C MP, LIPID #### [facility] [address] [address] [address] Carlos Barlow EGFR-AF [facility] >60 Normal >=60 [facility] Comment on above: Performed By: #### C MP, LIPID #### [facility] [address] [address] [address] Carlos Barlow EGFR-NON AF [facility] >60 Normal >=60 [facility] Comment on above: Performed By: #### C MP, LIPID #### [facility] [address] [address] [address] Carlos Barlow Globulin (S) [Mass/Vol] 3.5 g/dL Normal [facility] Comment on above: Performed By: #### C MP, LIPID #### [facility] [address] [address] [address] Carlos Barlow Glucose [Mass/Vol] 110 mg/dL Critically high 74-106 [facility] Comment on above: Performed By: #### C MP, LIPID #### [facility] [address] [address] [address] Carlos Barlow Potassium [Moles/Vol] 4.3 mmol/L Normal 3.5-5.1 [facility] Comment on above: Performed By: #### C MP, LIPID #### [facility] [address] [address] [address] Carlos Barlow Protein [Mass/Vol] 6.8 g/dL Normal 6.4-8.2 [facility] Comment on above: Performed By: #### C MP, LIPID #### [facility] [address] [address] [address] Carlos Barlow Sodium [Moles/Vol] 138 mmol/L Normal 136-145 [facility] Comment on above: Performed By: #### C MP, LIPID #### [facility] [address] [address] [address] Carlos Barlow Urea nitrogen [Mass/Vol] 15.0 mg/dL Normal 7.0-18.0 [facility] Comment on above: Performed By: #### C MP, LIPID #### [facility] [address] [address] [address] Carlos Barlow Urea nitrogen/Creatinine [Mass ratio] 18.8 mg/mg Normal [facility] Comment on above: Performed By: #### C MP, LIPID #### [facility] [address] [address] [address] Carlos Barlow Vital Signs Date Time Vital Sign Value Performing Clinician Facility 10-16-2023 10:31-0400 Blood Pressure Location Jean Paul [facility] 10-16-2023 10:31-0400 Diastolic blood pressure 78 mm[Hg] Jean Paul [facility] 10-16-2023 10:31-0400 Heart rate 80 /min Jean Paul [facility] 05-03-2024 10:31-0400 Respiratory rate 16 /min Jean [facility] 10-16-2023 10:31-0400 Systolic blood pressure 134 mm[Hg] Jean [facility] 07-18-2023 10:05-0500 Body height 149.86 cm Lissa Rossmond Other [facility] Other 07-18-2023 10:05-0500 Body mass index (BMI) [Ratio] 33.42 kg/m2 Lissa Yamilka Other [facility] Other 07-18-2023 10:05-0500 Body temperature 96.2 [degF] Lissa Yamilka Other [facility] Other 07-18-2023 10:05-0500 Body weight 75.07 kg Lissa Rossmond Other [facility] Other 07-18-2023 10:05-0500 Diastolic blood pressure 81 mm[Hg] Lissa Yamilka Other [facility] Other 07-18-2023 10:05-0500 Respiratory rate 18 /min Lissa Yamilka Other [facility] Other 07-18-2023 10:05-0500 SaO2% (BldA) [Mass fraction] 96 % Lissa Yamilka Other [facility] Other 07-18-2023 10:05-0500 Systolic blood pressure 181 mm[Hg] Lissa Yamilka Other [facility] Other 06-29-2023 11:17-0500 Blood Pressure Location [facility] 06-29-2023 11:17-0500 Diastolic blood pressure 78 mm[Hg] Jean Paul [facility] 06-29-2023 11:17-0500 Heart rate 69 /min Jean Paul [facility] 06-29-2023 11:17-0500 Respiratory rate 16 /min Jean Paul [facility] 06-29-2023 11:17-0500 Systolic blood pressure 134 mm[Hg] Jean Paul [facility] 06-03-2023 09:00-0500 Body height 149.86 cm Marine Watson Other [facility] Other 06-03-2023 09:00-0500 Body mass index (BMI) [Ratio] 33.93 kg/m2 Marine Watson Other [facility] Other 06-03-2023 09:00-0500 Body temperature 96.7 [degF] Marine Watson Other [facility] Other 06-03-2023 09:00-0500 Body weight 76.2 kg Marine Watson Other [facility] Other 06-03-2023 09:00-0500 Diastolic blood pressure 80 mm[Hg] Marine Watson Other [facility] Other 06-03-2023 09:00-0500 SaO2% (BldA) [Mass fraction] 96 % Marine Watson Other [facility] Other 06-03-2023 09:00-0500 Systolic blood pressure 142 mm[Hg] Marine Watson Other [facility] Other 05-05-2023 09:45-0500 Body height 149.86 cm Jeffy Ramos Other [facility] Other 05-05-2023 09:45-0500 Body mass index (BMI) [Ratio] 33.93 kg/m2 Jeffy Ramos Other [facility] Other 05-05-2023 09:45-0500 Body weight 76.2 kg Jeffy Ramos Other [facility] Other 05-05-2023 09:45-0500 Diastolic blood pressure 76 mm[Hg] Jeffy Ramos Other [facility] Other 05-05-2023 09:45-0500 Systolic blood pressure 142 mm[Hg] Jeffy Ramos Other [facility] Other 04-29-2023 09:45-0500 Body height 149.86 cm Gucci Meyers Other [facility] Other 04-29-2023 09:45-0500 Body mass index (BMI) [Ratio] 34.53 kg/m2 Gucci Meyers Other [facility] Other 04-29-2023 09:45-0500 Body temperature 97.4 [degF] Gucci Meyers Other [facility] Other 04-29-2023 09:45-0500 Body weight 77.57 kg Gucci Meyers Other [facility] Other 04-29-2023 09:45-0500 Diastolic blood pressure 62 mm[Hg] Gucci Luigi Other [facility] Other 04-29-2023 09:45-0500 SaO2% (BldA) [Mass fraction] 99 % Gucci Luigi Other [facility] Other 04-29-2023 09:45-0500 Systolic blood pressure 140 mm[Hg] Gucci Luigi Other [facility] Other 04-09-2023 09:15-0400 Body height 149.86 cm Jeffy Ramos Other [facility] Other 04-09-2023 09:15-0400 Body mass index (BMI) [Ratio] 34.53 kg/m2 Jeffy Ramos Other [facility] Other 04-09-2023 09:15-0400 Body weight 77.57 kg Jeffy Ramos Other [facility] Other 04-09-2023 09:15-0400 Diastolic blood pressure 78 mm[Hg] Jeffy Ramos Other [facility] Other 04-09-2023 09:15-0400 Systolic blood pressure 151 mm[Hg] Jeffy Ramos Other [facility] Other 03-27-2023 10:30-0400 Body height 149.86 cm Jeffy Ramos Other [facility] Other 03-27-2023 10:30-0400 Body mass index (BMI) [Ratio] 35.75 kg/m2 Jeffy Ramos Other [facility] Other 03-27-2023 10:30-0400 Body weight 80.29 kg Jeffy Ramos Other [facility] Other 03-27-2023 10:30-0400 Diastolic blood pressure 81 mm[Hg] Jeffy Ramos Other [facility] Other 03-27-2023 10:30-0400 Systolic blood pressure 147 mm[Hg] Jeffy Ramos Other [facility] Other 03-11-2023 11:00-0400 Body height 149.86 cm Jeffy Ramos Other [facility] Other 03-11-2023 11:00-0400 Body mass index (BMI) [Ratio] 33.73 kg/m2 Jeffy Ramos Other [facility] Other 03-11-2023 11:00-0400 Body weight 75.75 kg Jeffy Ramos Other [facility] Other 03-11-2023 11:00-0400 Diastolic blood pressure 66 mm[Hg] Jeffy Ramos Other [facility] Other 03-11-2023 11:00-0400 Systolic blood pressure 109 mm[Hg] Jeffy Ramos Other [facility] Other 11-21-2022 10:45-0400 Body height 149.86 cm Jeffy Ramos Other [facility] Other 11-21-2022 10:45-0400 Body mass index (BMI) [Ratio] 33.12 kg/m2 Jeffy Ramos Other [facility] Other 11-21-2022 10:45-0400 Body weight 74.39 kg Jeffy Ramos Other [facility] Other 11-21-2022 10:45-0400 Diastolic blood pressure 70 mm[Hg] Jeffy Ramos Other [facility] Other 11-21-2022 10:45-0400 Systolic blood pressure 112 mm[Hg] Jeffy Ramos Other [facility] Other 10-14-2021 10:45-0400 Body height 149.86 cm Alex Horton Other [facility] Other 10-14-2021 10:45-0400 Body mass index (BMI) [Ratio] 33.93 kg/m2 Alex Sol Other [facility] Other 10-14-2021 10:45-0400 Body weight 76.2 kg Alex Sol Other [facility] Other 09-23-2021 11:15-0400 Body height 149.86 cm Alex Sol Other [facility] Other 09-23-2021 11:15-0400 Body mass index (BMI) [Ratio] 33.12 kg/m2 Alex Sol Other [facility] Other 09-23-2021 11:15-0400 Body weight 74.39 kg Alex Sol Other [facility] Other Encounters Encounter Date Encounter Type Care Provider Facility Start: 04-22-2024 ambulatory Jean Paul Stone ty:[facility] Start: 02-16-2024 End: 02-16-2024 ambulatory [facility] Start: 10-19-2023 End: 10-19-2023 ambulatory [facility] Start: 10-16-2023 End: 10-17-2023 ambulatory Jean Paul URBAN Facility:[facility] Start: 10-16-2023 End: 10-16-2023 Patient encounter procedure [facility] Start: 07-28-2023 End: 07-29-2023 ambulatory Jean Paul URBAN Facility:[facility] Start: 07-28-2023 End: 07-28-2023 Patient encounter procedure Jean Paul URB[facility] Start: 07-18-2023 End: 07-18-2023 ambulatory Lissa Prather Other [facility] Other Start: 07-18-2023 Office outpatient vi sit 15 minutes Lissa Prather [facility] Start: 06-29-2023 End: 06-30-2023 ambulatory Jean Paul URBAN Facility: [facility] Start: 06-29-2023 End: 06-29-2023 Patient encounter procedure Jean Paul [facility] Start: 06-03-2023 End: 06-03-2023 Patient encounter procedure Marine Watson [facility] Start: 06-03-2023 End: 06-03-2023 ambulatory NON STAFF [facility] Other Start: 05-20-2023 End: 05-20-2023 ambulatory Jeffy Ramos Other [facility] Other Start: 05-20-2023 Telephone encounter Jeffy Ramos [facility] Start: 05-05-2023 End: 05-05-2023 ambulatory Jeffy Ramos Other [facility] Other Start: 05-05-2023 Office outpatient vi sit 15 minutes Jeffy Ramos [facility] Start: 04-29-2023 End: 04-29-2023 ambulatory Gucci Meyers Other [facility] Other Start: 04-29-2023 Office outpatient ne w 30 minutes Gucci Meyers [facility] Start: 04-29-2023 Telephone encounter Gucci sexton [facility] Start: 04-21-2023 End: 04-21-2023 ambulatory Alex Horton Other [facility] Other Start: 04-21-2023 Telephone encounter [facility] Start: 04-09-2023 End: 04-09-2023 ambulatory Jeffy Ramos Other [facility] Other Start: 04-09-2023 Office outpatient vi sit 15 minutes Jeffy Ramos [facility] Start: 03-30-2023 End: 03-30-2023 ambulatory Jeffy Ramos Other [facility] Other Start: 03-30-2023 Telephone encounter Jeffy Ramos [facility] Start: 03-27-2023 End: 03-27-2023 ambulatory Jeffy Ramos Other [facility] Other Start: 03-27-2023 Office outpatient vi sit 15 minutes Jeffy Ramos [facility] Start: 03-24-2023 End: 03-24-2023 ambulatory Jeffy Ramos Other [facility] Other Start: 03-24-2023 Telephone encounter Jeffy Ramos [facility] Start: 03-23-2023 ambulatory Jean Paul URBAN Facility :[facility] Start: 03-11-2023 End: 03-11-2023 ambulatory Jeffy Ramos Other [facility] Other Start: 03-11-2023 Office outpatient vi sit 15 minutes Jeffy Ramos [facility] Start: 02-23-2023 End: 02-23-2023 ambulatory Alex Erik NairSol Facility:[facility] Start: 02-23-2023 End: 02-23-2023 ambulatory NON STAFF [facility] Work Phone: Start: 02-23-2023 End: 02-23-2023 Patient encounter procedure [facility] Start: 02-03-2023 End: 02-03-2023 ambulatory Jeffy Ramos Other [facility] Other Start: 02-03-2023 Telephone encounter Jeffy Ramos [facility] Start: 11-21-2022 End: 11-21-2022 ambulatory Jefyf Ramos Other [facility] Other Start: 11-21-2022 Office outpatient vi sit 15 minutes Jeffy Ramos [facility] Start: 09-26-2022 End: 09-26-2022 ambulatory Jeffy Ramos Other [facility] Other Start: 09-26-2022 Telephone encounter Jfefy aRmos [facility] Start: 09-24-2022 Nursing evaluation o f patient and report Jeffy Ramos [facility] Start: 09-24-2022 End: 09-25-[address] JEFFY RAMOS [facility] Work Phone: Start: 09-24-2022 End: 09-24-2022 Departed Referred MD Jeffy Ramos Work Phone: [facility] [place] Work Phone: Start: 07-07-2022 (Televisit) Televisit Jeffy De La Cruz [facility] Start: 07-07-2022 End: 07-07-2022 ambulatory Jeffy Ramos Other [facility] Other Start: 07-05-2022 End: 07-06-[address] DOCTOR MCCULLOUGH Facility: Start: 05-13-2022 Adult health examination Jeffy Ramos Other [facility] Other Start: 05-05-2022 End: 05-05-[address] JEFFY RAMOS Facility:[facility] Start: 04-02-2022 End: 04-02-2022 ambulatory Alex Horton Other [facility] Other Start: 04-02-2022 Office outpatient vi sit 15 minutes Alex Horton [facility] Start: 03-31-2022 End: 04-01-[address] JEFFY RAMOS Facility:[facility] Start: 03-10-2022 End: 03-11-[address] CYNTHIA BARRY Facility:[facility] Start: 02-19-2022 End: 02-20-2022 ambulatory LEVY BRAND Facility:[facility] Start: 11-13-2021 End: 11-13-2021 ambulatory Alex Horton Other [facility] Other Start: 11-13-2021 Telephone encounter Alex RAMIRES [facility] Start: 10-28-2021 End: 10-28-2021 ambulatory Alex Horton Other [facility] Other Start: 10-28-2021 Telephone encounter Alex Horton FP [facility] Start: 10-23-2021 End: 10-23-2021 ambulatory Alex Horton Other [facility] Other Start: 10-23-2021 Telephone encounter Alex Horton [facility] Start: 10-14-2021 End: 10-14-2021 ambulatory Alex Horton Other [facility] Other Start: 10-14-2021 Office outpatient vi sit 25 minutes Alex Horton [facility] Start: 09-23-2021 End: 09-23-2021 ambulatory Alex Horton Other [facility] Other Start: 09-23-2021 Office outpatient vi sit 15 minutes [facility] Procedures Date Procedure Procedure Detail Performing [...] identified in Urine by Culture Urine Culture [facility] Immunizations Immunization Date Immunization Notes [facility] influenza virus vaccine, unspecified formulation Jean Paul URBAN [facility] 07-23-2022 Prevnar 20 Jeffy Ramos Other [facility] Other 03-22-2022 COVID-19 Vaccine Moderna - Documentation Purposes Only Jeffy Ramos Other [facility] Other 03-22-2022 influenza virus vaccine, split virus (incl. purified surface antigen) Jeffy Ramos Other [facility] Other 03-22-2022 influenza virus vaccine, unspecified formulation Jean Paul URBAN [facility] 03-22-2022 SARS-CoV-2 (COVID-19 ) [id number] Jean Paul URBAN [facility] 06-05-2021 pneumococcal conjuga te vaccine, 13 valent Jeffy Ramos Other [facility] [employer] Other 05-23-2021 Do not use COVID-19 Pfizer 2 dose Alex Sol Other [facility] 04-01-2021 influenza virus vaccine, unspecified formulation Jean Paul URBAN [facility] 09-28-2020 COVID-19 mRNA, Comirnaty (Pfizer) MD Jeffy Ramos Work Phone: [facility] 09-18-2020 Do not use COVID-19 Pfizer 2 dose Alex Sol Other [facility] 08-28-2020 Do not use COVID-19 Pfizer 2 dose Alex Sol Other [facility] 02-29-2020 influenza virus vaccine, unspecified formulation Jean Paul URBAN [facility] 03-25-2019 influenza virus vaccine, unspecified formulation Jean Paul URBAN [facility] 06-28-2018 zoster vaccine recombinant Jean Paul URBAN [facility] 03-30-2018 zoster vaccine recombinant Jean Paul URBAN [facility] 03-09-2018 influenza virus vaccine, split virus (incl. purified surface antigen) Jeffy Ramos Other [facility] Other 03-09-2018 influenza virus vaccine, unspecified formulation Jean Paul URBAN [facility] 02-29-2016 tetanus and diphther ia toxoids, adsorbed, preservative free, for adult use (5 Lf of tetanus toxoid and 2 Lf of diphtheria toxoid) Jeffy Ramos Other [facility] Other 04-09-2015 influenza virus vaccine, unspecified formulation Jean Paul URBAN [facility] 04-09-2015 tetanus and diphther ia toxoids, adsorbed, preservative free, for adult use (5 Lf of tetanus toxoid and 2 Lf of diphtheria toxoid) Jeffy Ramos Other [facility] Other Payers Date Payer Category Payer Unknown [id number] 1955 Unknown [id number] 2.16.84 [id number] 1955 Unknown [id number] 2.16.84 [id number] 1955 Unknown [id number] 2.16.84 [id number] 1955 Unknown [id number] 2.16.84 [id number] 1955 Unknown [id number] 2.16.84 [id number] 1955 Unknown [id number] 2.16.84 [id number] 1955 Unknown [id number] 2.16.8 [id number] 1955 Unknown [id number] 2.16.8 [id number] 1955 Unknown [id number] 2.16.8 [id number] 1955 Unknown [id number] 2.16.8 [id number] Self-pay Self Pay [id number] Unknown [employer] [id number] Social History Date Type Detail Facility Unknown if ever smoked [facility] Other Sex Assigned At [facility] Start: 10-22-2021 End: 10-16-2023 Tobacco smoking status NHIS Never smoked tobacco (finding) [facility] Start: 1955 Sex Assigned At Female F [facility] Tobacco smoking status Never [facility] Functional Status Date Assessment Result Facility 10-16-2023 Functional Status N/A [facility] 07-28-2023 Functional Status N/A [facility] 06-29-2023 Functional Status N/A [facility] Clinical Notes 09-23-2021 to 02-16-2024 Note Date & Type Note Facility 02-16-2024 Note [facility] Cardiology Clinic Note Chief Complaint: Patient here for 1 year follow up hypertension and hyperlipidemia. Denies chest pain, SOB, and LE edema. Says she's doing well from cardiac standpoint. PCP stopped chlorthalidone back in Feb 2023. HPI: Pebbles Johnson is a 69 y.o. female with hypertension and hyperlipidemia seen in follow-up. Last seen by Dr. Barry in 02/2022 for BP management. BP is well controlled with medication changes, she reports dizziness with bending but otherwise doing well from a cardiac standpoint. She is not checking her blood pressure at home She has no cardiovascular symptoms Assessment and Plan (1) Chest pain: Assessment and Plan: No acute EKG changes. Trops x 3 negative. No sig abnormality on ECHO. Symptoms resolved. likely non cardiac as patients does not experience any symptoms concerning for underlying CAD upon exertion and she is fairly active with regular moderate intensity exercise. Qualifiers: Chest pain type: other chest pain Qualified Code(s): R07.89 - Other chest pain (2) Palpitations: Assessment and Plan: Resolved. Ordered Holter for 3 days upon discharge. (3) HTN (hypertension): Assessment and Plan: BP at goal. C/w home medications Qualifiers: Hypertension type: primary hypertension Qualified Code(s): I10 - Essential (primary) hypertension (4) High cholesterol: Assessment and Plan: C/w crestor Cardiology ROS: Review of Systems Cardiovascular: Positive for leg swelling (minimal). All other systems reviewed and are negative. Past Medical History She has a past medical history of Bipolar 1 disorder (CMS/HCC), Hyperlipidemia, and Hypertension. Surgical History She has [...] Coronary artery disease Other Depression Other Allergies Rosuvastatin and Sulfa (sulfonamide antibiotics) Medications Current Outpatient Medications: aspirin 81 mg EC tablet, in the morning., Disp: , Rfl: carvedilol (Coreg) 25 mg tablet, TAKE 1 TABLET BY MOUTH EVERY DAY WITH BREAKFAST AND 1 WITH EVENING MEAL, Disp: 180 tablet, Rfl: 3 lisinopril 40 mg tablet, Take 1 tablet (40 mg) by mouth in the morning., Disp: 90 tablet, Rfl: 3 nitroglycerin (Nitrostat) 0.4 mg SL tablet, Place 1 tablet (0.4 mg) under the tongue every 5 (five) minutes if needed for chest pain., Disp: 25 tablet, Rfl: 3 pantoprazole (ProtoNix) 40 mg EC tablet, pantoprazole 40 mg tablet,delayed release TAKE 1 TABLET BY MOUTH EVERY DAY, Disp: 90 tablet, Rfl: 3 chlorthalidone (Hygroton) 25 mg tablet, Take 1 tablet (25 mg) by mouth once daily as directed. (Patient not taking: Reported on 10/19/2023), Disp: 90 tablet, Rfl: 3 furosemide (Lasix) 20 mg tablet, TAKE 1/2 TABLET DAILY (Patient not taking: Reported on 02/16/2024), Disp: 45 tablet, Rfl: 3 furosemide (Lasix) 20 mg tablet, TAKE 1/2 TABLET DAILY (Patient not taking: Reported on 02/16/2024), Disp: 45 tablet, Rfl: 3 hydroCHLOROthiazide (HYDRODiuril) 25 mg tablet, Take 1 tablet (25 mg) by mouth in the morning. (Patient not taking: Reported on 02/16/2024), Disp: 90 tablet, Rfl: 3 meloxicam (Mobic) 15 mg tablet, Take 15 mg by mouth in the morning., Disp: , Rfl: rosuvastatin (Crestor) 40 mg tablet, Take 1 tablet by mouth daily in the evening (Patient not taking: Reported on 02/16/2024), Disp: 30 tablet, Rfl: 11 Last Recorded Vitals BP 172/78 (BP Location: Left arm, Patient Position: Sitting) Pulse 69 Ht 1.499 m (4' 11 ) Wt 78.5 kg (173 lb) SpO2 98% BMI 34.94 kg/m??? Physical Examination: GENERAL: alert and oriented [...] 1, mild diastolic dysfunction (abnormal relaxation). Normal (more content not included)... [facility] 10-19-2023 Note [facility] Cardiology Clinic Note Chief Complaint: Patient [...] past medical history of Bipolar 1 disorder (CMS/HCC), Hyperlipidemia, and Hypertension. Surgical History She has [...] should problems arise Cynthia Barry MD, MPH, [facility], [facility], [facility] Interventional Cardiology Pager Email: [email or web address] 10-16-2023 Hospital Discharge instructions Patient Education 10/16/2023 [...] rectum to the vagina. General instructions Take bzew-jzd-sihrzae and prescription medicines only as told by [...] provider. Document Revised: 11/29/2020 Document Reviewed: 11/29/2020 [employer] Patient Education 2022 [employer]. Follow Up Care 07/28/2023 11:08:09 With:MARYAM BEAVERS, Jean Paul Burton, URL Address: [address] [place], [place] [address]- When: Unknown [facility] 07-28-2023 Note [id number] [facility] 07-28-2023 Hospital Discharge instructions Patient Education 07/28/2023 [...] Paul URBAN Address: [facility] [address] [place] [address]- Business (1) When:10/26/2023 11:01:17 [facility] 07-28-2023 Note Custom Cystoscopy with [...] you have a fever over 100 degrees [facility] 07-18-2023 Evaluation note Encounter Date Diagnosis Assessment Notes Jul, Contact with and (suspected) exposure to covid-19 (ICD-10 - Z20.822) Jul, Viral URI (ICD-10 - J06.9) Drink plenty of fluids, get plenty of rest. Take Tylenol or Motrin as needed for aches pains or fevers. Follow-up with your family physician if no improvement in 2 to 3 days [facility] Other 01-15-2024 Hospital Discharge instructions Patient Education [...] including vitamins, herbs, eye drops, creams, and qoen-coc-jyrglgp medicines. ?Whether you are or may be [...] provider. Document Revised: 02/12/2022 Document Reviewed: 01/04/2021 [employer] Patient Education 2022 [employer]. 06/29/2023 11:52:01 Urinary Incontinence Urinary Incontinence Urinary [...] nerve stimulation). ?For women, using a medical office assistant to prevent urine leaks. This is [...] right after experiencing incontinence. General instructions Take pzli-iwf-gzvxylh and prescription medicines only as told by [...] important. Where to find more information National [place] of Diabetes and Digestive and Kidney Diseases: www.niddk.nih.gov [place] [employer]: www.urologyhealth.org Contact a health care [...] provider. Document Revised: 01/04/2021 Document Reviewed: 01/04/2021 [employer] Patient Education 2022 [employer]. Follow Up Care 03/23/2023 10:22:20 With:MARYAM BEAVERS, Jean Paul Burton, URL Address: [facility] [address] , [place] [address] [phone] When: Unknown Comments:sched cysto/urodynamics [facility] 12-20-2023 Evaluation note* Encounter Date [...] Edema of right ankle (ICD-10 - M25.471) [facility] Other 12-06-2023 Evaluation note* Encounter Date Diagnosis Assessment Notes Treatment Notes Treatment Clinical Notes May, Lumbar radiculopathy (ICD-10 - M54.16) [facility] Other 11-21-2023 Evaluation note* Encounter Date Diagnosis Assessment Notes Treatment Notes Treatment Clinical Notes Apr, Lumbar pain (ICD-10 - M54.50) Continue followup w chiropractor in 1 hr. XR order given. Discussed potential referral to pain management if needed. Will call w update. Taking motrin tid for pain. [facility] Other 11-15-2023 Evaluation note* Encounter Date Diagnosis [...] few weeks to go over the results. [facility] Other 10-26-2023 Evaluation note* Encounter Date Diagnosis Assessment Notes Treatment Notes Treatment Clinical Notes Mar, Anxiety, generalized (ICD-10 - F41.1) Skin exam normal. Suspect her anxiety is causing the itching sensation. Discussed medication and counseling. Followup in 1 month. [facility] Other 10-13-2023 Evaluation note* Encounter Date Diagnosis Assessment Notes Treatment Notes Treatment Clinical Notes Mar, Right ankle swelling (ICD-10 - M25.471) Discussed importance to r/o DVT. Consider referral based on US results. [facility] Other 09-27-2023 Evaluation note* Encounter Date Diagnosis Assessment Notes Treatment Notes Treatment Clinical Notes Feb, Essential hypertension (ICD-10 - I10) Discussed low bp today and how this can be linked to her symptoms of lightheadedness. Will hold chlorthalidone. Check bp daily. Call with readings. Followup in 1 month. [facility] Other 06-09-2023 Evaluation note* Encounter Date Diagnosis Assessment Notes Treatment Notes Treatment Clinical Notes Nov, Pruritus (ICD-10 - L29.9) Med could relieve itching and help her sleep Nov, Situational anxiety (ICD-10 - F41.8) Discussed medications and stress relief. Continue present chronic medications. [facility] Other 04-12-2023 Evaluation note* Encounter Date Diagnosis Assessment Notes Treatment Notes Treatment Clinical Notes Sep, Dysuria (ICD-10 - R30.0) [facility] Other 01-23-2023 Evaluation note* Encounter Date Diagnosis Assessment Notes Treatment Notes Treatment Clinical Notes Jun, Allergic cough (ICD-10 - R05.8) Discussed symptom management with Coricidin and Claritin. Call if fevers or shortness of breath occurs. Discussed masking at work for her own wellness as well as her coworkers and customers. [facility] Other 10-19-2022 Evaluation note* Encounter Date Diagnosis [...] get an MRI of the lumbar spine [facility] Other 10-18-2022 NotePROCEDURE: XR HIP LT 2 3V W PELVIS HISTORY: Left side sciatica ; low back and left hip pain for 2 weeks COMPARISON: None. FINDINGS: BONES:No fracture, acute abnormality, or significant arthropathy. SOFT TISSUES:No visible soft tissue swelling. EFFUSION:None visible. OTHER: Negative. IMPRESSION: 1. No acute bone abnormality or significant degenerative joint disease. Electronically authenticated by: KIRK CESAR Date: 2022-04-01 06:49[facility]06-01-2022 Evaluation note* Encounter Date Diagnosis Assessment Notes Treatment Notes Treatment Clinical Notes Nov, Other specified postprocedural states (ICD-10 - Z98.890) [facility] Other 05-16-2022 Evaluation note* Encounter Date Diagnosis Assessment Notes Treatment Notes Treatment Clinical Notes October, Primary osteoarthritis of left knee (ICD-10 - M17.12) [facility] Other 05-02-2022 Evaluation note* Encounter Date Diagnosis [...] poor healing. I have advised against the correction use of narcotic pain medication. I have [...] follow-up after this for further treatment options. [facility] Other 04-11-2022 Evaluation note* Encounter Date Diagnosis [...] follow-up after this for further treatment options. [facility] Other Evaluation + Plan note Future Appointments Appointment Date:07/28/2023 09:00:00 AM Scheduled Provider: Location:[facility] Appointment Type:Urology FT Appointment Date:07/28/2023 10:15:00 AM Scheduled Provider: Location:[facility] Appointment Type:Urology FT [facility] evaluation + Plan note Future Appointments Appointment Date:10/16/2023 10:30:00 AM Scheduled Provider:Jean Paul URBAN MD Location:[facility] App[facility]ments Appointment Date:04/22/2024 09:45:00 AM Scheduled Provider:Jean Paul URBAN MD Location:[facility] Appointment Type:URO Office Visit [facility] evaluation noteNo InformationRedstone [employer] Other Evaluation noteNo assessment information available [facility] Work Phone: Hiswqfd general Narrative - Reported* Type Description Date Medical History Benign essential HTN Medical History Hypercholesterolemia Surgical History colonoscopy Surgical History partial hysterectomy Hospitalization History see above [facility] Other [facility] general Narrative - Reported* Type Description Date [...] knee surgery 10/2021 Hospitalization History see above [facility] Other Hospital course Narrative No data available for this section [facility] [employer] progress note No data available for this section [facility] [employer] reason for visit NarrativeLOWER BACK - REFERRAL FOR [facility] [employer] Other Family History No Family History Records [...] Diagnosis 1 Lumbar radiculopathy (M54.16) Referral Organization [facility] kavin Referring Provider First Name Jeffy Referring Provider Last Name Richard Referring Provider Specialty Family [facility] Referred Organization [facility] Referred Address [address] [place], [place],[address] Referred Provider Specialty Pain Medicin e Referral Priority Routine Reason *Waiting for appt swelling and varicosities Diagnosis 1 Right ankle swelling (M25.471) Referral Organization [facility] Referring Provider First Name Jeffy Referring Provider Last Name Richard Referring Provider Specialty Family Medi cine Referred Organization [facility] Vascular Surge ry Referred Provider Gucci Meyers Referred Address [address] [place] [address],[facility] [address],[place], [place],[address] Referred Provider Specialty Vascular Navjot soledad Referral [...] STAFF Primary Care Provider Active Alex Horton , Attending Provider Active Team Status: Inactive Member Role Status Dates NON STAFF Primary Care Provider Active Gucci Meyers MD Attending Provider Active Goals (unrecognized section and content) Goals may be documented in a n alternate section INFORMATION SOURCE (unrecogn ized section and content) DATE CREATED AUTHOR 09/30/[address] [facility] DATE CREATED AUTHOR AUTHOR'S ORGANIZ ATION 06/04/2023 [facility] DATE CREATED AUTHOR AUTHOR'S ORGANIZ ATION 10/17/2023 [facility] DATE CREATED AUTHOR AUTHOR'S ORGANIZ ATION 02/16/2024 [facility] FOR RECORDS PERTAINING TO PATIENTS WHO [...] BE BASED ON THE PRIMARY CLINICAL RECORDS. [facility]. provides no warranty or guarantee of the accuracy or completeness of information in this document.
[2024-03-15 12:13] LABS: Basophils Percent Auto 0.4 % (0.2-2.0); Eosinophils Absolute Auto 0.3 10^3/uL (0.0-0.7); Eosinophils Percent Auto 4.1 % (0.9-7.0); Hematocrit 39.9 % (36.0-48.0); Hemoglobin 13.4 g/dL (12.0-16.0); Immature Granulocytes Abs Auto 0.03 10^3/uL (0.00-0.03); Immature Granulocytes Pct Auto 0.4 % (0.0-0.5); Lymphocytes Absolute Auto 1.3 10^3/uL (1.2-3.8); Lymphocytes Percent Auto 15.9 % (20.5-60.0); Mean Corpuscular HGB Conc 33.6 g/dL (29.9-35.2); Mean Corpuscular Hemoglobin 27.9 pg (26.7-34.0); Mean Platelet Volume 9.5 fL (9.5-13.5); Monocytes Absolute Auto 0.7 10^3/uL (0.3-0.8); Monocytes Percent Auto 8.5 % (1.7-12.0); Neutrophils Absolute Auto 5.5 10^3/uL (1.4-6.5); Neutrophils Percent Auto 70.7 % (43.0-75.0); Platelet Count 228 10^3/uL (150-450); Red Blood Count 4.81 10^6/uL (4.20-5.40); Red Cell Distribution Width 14.3 % (11.0-15.0); White Blood Count 7.8 10^3/uL (4.0-11.0)
[2024-03-15 12:34] LABS: Estimated Average Glucose 123 mg/dL; Glycohemoglobin A1C 5.9 % (4.5-6.2)
[2024-03-15 12:50] LABS: Thyroid Stimulating Hormone 2.416 uIU/mL (0.358-3.740)
[2024-03-16 05:07] LABS: Vitamin B12 594 pg/mL (232-1245)
== END 2024-03-15 11:48 | disposition home or self-care (01) ==
LOC: LAB 11:49
PROVIDERS: PCP Family Medicine; Visit Provider Family Medicine
DX: R53.1 Weakness (principal); G62.9 Polyneuropathy, unspecified; R73.09 Other abnormal glucose; E61.1 Iron deficiency
CPT/HCPCS: 36415; 82607; 82728; 82746; 83036; 84443; 85025

== ENCOUNTER 2024-08-17 13:17 | Outpatient (OUT) | payer OTHER, SELFPAY ==
--- NOTE | 2024-08-17 13:20 | MM_ITS ---
Patient Name: PEBBLES PEREYRA MR#: [id number] : 1955 Exam Date: 08/17/2024 Ordering Doctor: DR Farzana Aldana M.D. RADIOLOGY REPORT PROCEDURE: MM TOMOSYNTHESIS SCREENING BI COMPARISON: MG MAMM SCREEN 3D FELICIA CAD, 09/24/2022. MG MAMM SCREEN 3D FELICIA CAD, 09/09/2021. MG MAMM SCREEN FELICIA W CAD, 05/02/2020. MG MAMM FELICIA SCRN W CAD DIG, 11/02/2012. INDICATIONS: Screening for malignant neoplasm Calculator Name NCI Breast Cancer Risk Assessment Tool 5 Year Breast Cancer Risk 1.40% Lifetime Breast Cancer Risk 4.60% Personal Breast Cancer No Personal Ovarian Cancer No Treatments None Family Cancers Mother with kidney cancer at age 30. LOCATION: [facility] BREAST COMPOSITION: There are scattered areas of fibroglandular density. FINDINGS: DIAGNOSTIC CATEGORY 1--NEGATIVE. RIGHT BREAST: No significant suspicious finding. LEFT BREAST: No significant suspicious finding. RECOMMENDATIONS: ROUTINE MAMMOGRAM AND CLINICAL EVALUATION IN 12 MONTHS. PLEASE NOTE: A NORMAL MAMMOGRAM DOES NOT EXCLUDE THE POSSIBILITY OF BREAST CANCER. A CLINICALLY SUSPICIOUS PALPABLE LUMP SHOULD BE BIOPSIED. Dictated by: Marc Mak DO on 08/18/2024 at 15:50 Approved by: Marc Mak DO on 08/18/2024 at 15:54
== END 2024-08-17 13:18 | disposition home or self-care (01) ==
LOC: MAMMO 13:17
PROVIDERS: PCP Family Medicine; Visit Provider Family Medicine
DX: Z12.31 Encounter for screening mammogram for malignant neoplasm of breast (principal); Z80.51 Family history of malignant neoplasm of kidney
CPT/HCPCS: 77063; 77067

== ENCOUNTER 2024-11-10 14:56 | Outpatient (OUT) | payer OTHER, SELFPAY ==
--- OUTSIDE RECORDS SUMMARY | 2024-11-10 14:00 | XMS_ITS | Encounter Summary ---
Author Organization The [facility] Address [address] [place] [address] Care Team Providers Care Jockey'S Agent Name Role Phone Farzana Aldana MD Primary Care Provider [phone] Encounter Details Date Type Department Care Team (Late st Contact Info) Description 11/10/2024 2:00 PM EDT Office Visit [facility] Heart at [facility] [address] [place] [address] Cynthia Barry MD [address] [facility] [place] [address] Orthostatic hypotension (Primary Dx); Benign hypertensive heart disease with heart failure (CMS/HCC) Social History Tobacco Use Types Packs/Day Years Used Date Smoking Tobacco: Never Smokeless Tobacco: Never Alcohol Use Standard Drinks/Week Comments Yes 0 (1 standard drink = 0.6 oz pur e alcohol) occasional [place] Safety & Environment Answer Date Rec orded Fear of Current or Ex-Partner Not on file Emotionally Abused Not on file 08/06/2023 Physically Abused Not on file 08/06/2023 Sexually Abused Not on file 08/06/2023 Physically or Sexually Abused Not on file Sex and Gender Information Value Date Recorded Sex Assigned at Female 10/14/2024 10:15 AM EDT Gender Identity Female 10/14/2024 10:15 AM EDT Sexual Orientation Heterosexual or Straight 07/2024 10:15 AM EDT documented as of this encounter Last Filed Vital Signs Vital Sign Reading Time Taken Comments Blood Pressure 119/62 11/10/2024 2:20 PM EDT Pulse 63 11/10/2024 2:20 PM EDT Temperature - - Respiratory Rate - - Oxygen Saturation 97% 11/10/2024 2:20 PM EDT Inhaled Oxygen Concentration - - Weight 80.3 kg (177 lb) 11/10/2024 2:20 PM EDT Height 149.9 cm (4' 11 ) 11/10/2024 2:20 PM EDT Body Mass Index 35.75 11/10/2024 2:20 PM EDT documented in this encounter Progress Notes * Cynthia Barry MD - 11/10/2024 2:00 PM EDT Images from the original note were not included. [facility] Cardiology Clinic Note Chief Complaint: Patient here for low blood pressure which is causing her to be lightheaded, walking sideways and dizzy. Dizziness occurs with standing, sitting, bending. Patient states her blood pressures at home have 76/42 , 77/40, 91/53 and 104/52. HPI: Adelita Johnson is a 69 y.o. female with [...] High cholesterol: Assessment and Plan: C/w crestor UPDATE 10/18/2024 Doing well; has no new cardiac symptoms. Blood pressure is well-controlled at home; she reassures me that it is consistently below 140 systolic and 85 diastolic UPDATE 11/10/2024 Started noticing dizziness and orthostatic symptoms on . She was working out in the yard and may not have been keeping up with her fluid intake. No fevers, no chills, no cough or expectoration. No blood in the urine or stools. No diarrhea. No vomiting. No burning in the urine. Denies chest pain, shortness of breath, palpitations. No orthopnea or paroxysmal dyspnea. No significant lower extremity edema. Cardiology ROS: Review of Systems Cardiovascular: Negative for leg swelling (minimal). All other systems [...] smokeless tobacco. She reports current alcohol use. She reports that she does not use drugs. Family History Family History Problem Relation Name Age of Onset Cancer Other Coronary artery disease Other Depression Other Allergies Rosuvastatin, Sulfa (sulfonamide antibiotics), and Sulfur Medications Current Outpatient Medications: aspirin 81 mg [...] on 10/19/2023), Disp: 90 tablet, Rfl: 3 ezetimibe (Zetia) 10 mg tablet, Take 1 tablet (10 mg) by mouth in the morning., Disp: 90 tablet, Rfl: 3 furosemide (Lasix) 20 mg tablet, TAKE 1/2 TABLET DAILY (Patient not taking: Reported on 02/16/2024), Disp: 45 tablet, Rfl: 3 furosemide (Lasix) 20 mg tablet, TAKE 1/2 TABLET DAILY (Patient not taking: Reported on 02/16/2024), Disp: 45 tablet, Rfl: 3 gabapentin (Neurontin) 300 mg capsule, Take 300 mg by mouth 3 times a day., Disp: , Rfl: hydroCHLOROthiazide (HYDRODiuril) 25 mg tablet, Take 1 tablet (25 mg) by mouth in the morning., Disp: 90 tablet, Rfl: 3 hydroCHLOROthiazide (HYDRODiuril) 25 mg tablet, Take 1 tablet (25 mg) by mouth in the morning. (Patient not taking: Reported on 10/18/2024), Disp: 90 tablet, Rfl: 3 lisinopril 40 mg tablet, TAKE 1 TABLET BY MOUTH IN THE MORNING, Disp: 90 tablet, Rfl: 3 meloxicam (Mobic) 15 mg tablet, Take 15 mg by mouth in the morning., Disp: , Rfl: nitroglycerin (Nitrostat) 0.4 mg SL tablet, Place 1 tablet (0.4 mg) under the tongue every 5 (five)minutes if needed for chest pain., Disp: 25 tablet, Rfl: 3 pantoprazole (ProtoNix) 40 mg EC tablet, TAKE 1 TABLET BY MOUTH DAILY, Disp: 90 tablet, Rfl: 3 rosuvastatin (Crestor) 40 mg tablet, Take 1 tablet by mouth daily in the evening, Disp: 30 tablet, Rfl: 11 Last Recorded Vitals BP 119/62 (BP Location: Right arm, Patient Position: Sitting) Pulse 63 Ht 1.499 m (4' 11 ) Wt80.3 kg (177 lb) SpO2 97% BMI 35.75 kg/m?? Physical Examination: GENERAL: alert and oriented x3, [...] 4.3, BUN 15, serum creatinine 0.8, ALT 21,AST 14, total cholesterol 241, HDL 51, triglycerides [...] pressures. No valvular stenosis or significant insufficiency. Echocardiogram 02/01/2024: Mild concentric left ventricular hypertrophy with normal systolic function; EF 65 to 70% Normal right ventricular size and systolic function Grade 2 diastolic dysfunction Mild mitral and tricuspid regurgitation Mildly elevated right-sided pressure; RVSP 39 mmHg No pericardial effusion Labs 03/15/2024: CBC is normal Labs 02/25/2024: BUN 26, creatinine 0.88 Triglycerides 175, cholesterol 259, HDL 68, LDL 156 Assessment Mixed hyperlipidemia Essential hypertension LVH Diastolic dysfunction Dyspnea on exertion Orthostatic hypotension/dizziness Low blood pressure readings Plan Will discontinue hydrochlorothiazide Will decrease her Coreg to 12.5 mg p.o. twice daily She is to monitor her blood pressure at home a.m. and p.m. to keep a log We will give her a lab slip to check CBC and CMP today She is to return to the clinic in 2 to 3 weeks for further evaluation Cynthia Barry MD, MPH, [facility], [facility], [facility] Interventional Cardiology Pager Email: [email or web address] documented in this encounter Plan of Treatment Upcoming Encounters Date Type Department Care Team (Late st Contact Info) Description 12/15/2024 11:45 AM EDT Office Visit [facility] Heart at [facility] [address] [place] [address] Cynthia Barry MD [address] [facility] [address] [facility] [place] [address] Scheduled Orders Name Type Priority Associated Diagnoses Orde r Schedule Comprehensive metabolic panel Lab Routine Benign hypertensive heart disease with heart failure (CMS/HCC) Expected: 11/10/2024 (Approximate), Expires: 11/10/2025 CBC and differential Lab Routine Benign hypertensive heart disease with heart failure (CMS/[facility]) Expected: 11/10/2024 (Approximate), Expires: 11/10/2025 documented as of this encounter Visit Diagnoses Diagnosis Orthostatic hypotension- Primary Benign hypertensive heart disease with heart failure (CMS/[facility]ER[facility]) documented in this encounter Care Teams Jockey'S Agent Relationship Specialty Start Date End Date Farzana Aldana MD [address] [place] [address] #A PCP - General 06/26/22 documented as of this encounter
--- OUTSIDE RECORDS SUMMARY | 2024-11-10 15:01 | XMS_ITS | Clinical Summary ---
Author Organization [facility] Address [address] [place] [address] Care Team Providers Care Firer Tunnel Kiln Name Role Phone Farzana Aldana MD Primary Care Provider [phone] Allergies Active Allergy Reactions Criticality Noted Date Comments Rosuvastatin Other 02/16/2024 myalgias Sulfa (Sulfonamide Antibiotics) Other 05/15 Sulfur Other 06/02/2014 Medications Medication Sig Dispensed Refills Start Date End Date Status rosuvastatin (Crestor) 40 mg tabletIndications:Mi xed hyperlipidemia Take 1 tablet by mouth daily in the evening 30 tablet 11 02/25/2022 Active aspirin 81 mg EC tablet in the morning. Active meloxicam (Mobic) 15 mg tablet Take 15 mg by mouth in the morning. Active chlorthalidone (Hygroton) 25 mg tabletIndications:Be nign hypertensive heart disease without congestive heart failure Take 1 tablet (25 mg) by mouth once daily as directed. 90 tablet 3 10/24/2022 Active Additional Information Patient not taking.Reported on 10/19/2023 nitroglycerin (Nitrostat) 0.4 mg SL tabletIndications:Ch est pain, unspecified type Place 1 tablet (0.4 mg) under the tongue every 5 (five) minutes if needed for chest pain. 25 tablet 3 10/19/2023 Active hydroCHLOROthiazide (HYDRODiuril) 25 mg tabletIndications:Be nign hypertensive heart disease without congestive heart failure Take 1 tablet (25 mg) by mouth in the morning. 90 tablet 3 10/20/2023 Active furosemide (Lasix) 20 mg tabletIndications:Ed aramis, unspecified type TAKE 1/2 TABLET DAILY 45 tablet 3 10/26/2023 Active Additional Information Patient not taking.Reported on 02/16/2024 furosemide (Lasix) 20 mg tabletIndications:Ed aramis, unspecified type TAKE 1/2 TABLET DAILY 45 tablet 3 10/26/2023 Active Additional Information Patient not taking.Reported on 02/16/2024 hydroCHLOROthiazide (HYDRODiuril) 25 mg tabletIndications:Es sential hypertension Take 1 tablet (25 mg) by mouth in the morning. 90 tablet 3 02/16/2024 Active Additional Information Patient not taking.Reported on 10/18/2024 ezetimibe (Zetia) 10 mg tabletIndications:Hy perlipidemia, unspecified hyperlipidemia type Take 1 tablet (10 mg) by mouth in the morning. 90 tablet 3 03/15/2024 Active carvedilol (Coreg) 25 mg tabletIndications:Es sential hypertension Take 1 tablet (25 mg) by mouth with breakfast and with evening meal. 180 tablet 3 04/28/2024 Active lisinopril 40 mg tabletIndications:Be nign hypertensive heart disease without congestive heart failure TAKE 1 TABLET BY MOUTH IN THE MORNING 90 tablet 3 10/05/2024 Active pantoprazole (ProtoNix) 40 mg EC tabletIndications:Ch est pain, unspecified type TAKE 1 TABLET BY MOUTH DAILY 90 tablet 3 10/05/2024 Active gabapentin (Neurontin) 300 mg capsule Take 300 mg by mouth 3 times a day. 04/26/2024 Active carvedilol (Coreg) 12.5 mg tabletIndications:Be nign hypertensive heart disease with heart failure (CMS/HCC) Take 1 tablet (12.5 mg) by mouth with breakfast and with evening meal. 180 tablet 3 11/10/2024 Active Active Problems Problem Noted Date Diagnosed Date Depression 10/18/2024 Anxiety, generalized 02/16/2024 Balance disorder 02/16/2024 COVID 02/16/2024 Dyslipidemia 02/16/2024 Edema of both lower extremities 02/16/2024 Fatigue 02/16/2024 Hypokalemia 02/16/2024 Insomnia, persistent 02/16/2024 S/P arthroscopic knee surgery 02/16/2024 Sciatica, left side 02/16/2024 Situational anxiety 02/16/2024 Unilateral primary osteoarthritis, left knee 08/2023 Viral URI with cough 02/16/2024 Visit for suture removal 02/16/2024 Vaginal atrophy 10/19/2023 10/19/2023 Unspecified urethral stricture, female 4 10/19/2023 Incontinence without sensory awareness 4 10/19/2023 History of UTI 10/19/2023 10/19/2023 Asymptomatic microscopic hematuria 10/19/2023 10/19/2023 Abnormal results of cardiovascular function stud ies 09/29/2013 Bipolar disorder 09/29/2013 Diaphragmatic hernia 09/29/2013 Dyspnea 09/29/2013 Essential hypertension 09/29/2013 Assessment & Plan (11/05/2022 3:46 PM EDT): Hypertension is well controlled 107/59 Continue lisinopril, coreg and chlorthalidone Recent renal function normal Hyperlipidemia 09/29/2013 Assessment & Plan (11/05/2022 3:47 PM EDT): Continue statin Lipid level well controlled- reviewed with patient Irritable bowel syndrome 09/29/2013 Encounters Date Type Department Care Team Description 11/10/2024 2:00 PM EDT Office Visit [facility] [address] [place] [address] Cynthia Barry MD Orthostatic hypotension (Primary Dx); Benign hypertensive heart disease with heart failure (CMS/HCC) 10/18/2024 10:45 AM EDT Office Visit [facility] [address] [place] [address] Cynthia Barry MD Mixed hyperlipidemia (Primary Dx); Essential hypertension 10/05/2024 Refill [facility] [address] [place] [address] Cynthia Barry MD Benign hypertensive heart disease without congestive heart failure; Chest pain, unspecified type from Last 3 Months Family History Medical History Relation Name Comments Cancer Other Coronary artery disease Other Depression Other Relation Name Status Comments Other Social History Tobacco Use Types Packs/Day Years Used Date Smoking Tobacco: Never Smokeless Tobacco: Never Tobacco Cessation:Counseling Given: Not Answered Alcohol Use Standard Drinks/Week Comments Yes 0 [...] Heterosexual or Straight 07/2024 10:15 AM EDT Last Filed Vital Signs Vital Sign Reading [...] Mass Index 35.75 11/10/2024 2:20 PM EDT Plan of Treatment Upcoming Encounters Date Type Department Care Team (Late st Contact Info) Description 12/15/2024 11:45 AM EDT Office Visit [facility] [address] [place] [address] Cynthia Barry MD [address] [facility] [place] [address] Health Maintenance Due Date Last Done Comments CT Colonography 1956 Colonoscopy 1956 Colorectal Cancer Screening 1955 FIT-DNA 1956 FIT 1956 FOBT 1955 Medicare Annual Wellness (AWV) 1955 Sigmoidoscopy 1956 Depression Screening 1968 Adult Tetanus 01/28/1978 Mammogram 1996 Fall Risk Screening 01/28/2021 Pneumococcal Vaccine: 65+ Years (1 of 1 - PCV) 01/28/2021 COVID-19 Vaccine ( - season) 2024 05/11/2023, 03/22/2022, 05/23/2021, Additional history exists Zoster Vaccines Completed 06/28/2018, 03/30/2018 Influenza Vaccine Completed 04/05/2024, , 03/22/2022, Additional history exists HIB Vaccines Aged Out No longer eligi ble based on patient's age to complete this topic HPV Vaccines Aged Out No longer eligi ble based on patient's age to complete this topic IPV Vaccines Aged Out No longer eligi ble based on patient's age to complete this topic Meningococcal B Vaccine Aged Out No l onger eligible based on patient's age to complete this topic Meningococcal Vaccine Aged Out No sean brett eligible based on patient's age to complete this topic Rotavirus Vaccines Aged Out No longer eligible based on patient's age to complete this topic Care Teams Firer Tunnel Kiln Relationship Specialty Start Date End Date Farzana Aldana MD [address] [facility] #A PCP - General 06/26/22
--- OUTSIDE RECORDS SUMMARY | 2024-11-10 15:01 | XMS_ITS | Encounter Summary ---
Author Organization The [facility] Address [address] [place] [address] Care Team Providers Care Straddle Bug Name Role Phone Farzana Aldana MD Primary Care Provider [phone] Reason for Visit * Reason Comments Med Refill Encounter Details Date Type Department Care Team (Late st Contact Info) Description 04/15/[address] [address] Angela Patel, SANFORIZING MACHINE OPERATOR [address] [place] [address] Essential hypertension Social History Tobacco Use Types Packs/Day Years Used Date Smoking Tobacco: Never Smokeless Tobacco: Never Alcohol Use Standard Drinks/Week Comments Yes 0 (1 standard drink = 0.6 oz pur e alcohol) occasional Sex and Gender Information Value Date Recorded Sex Assigned at Female 10/14/2024 10:15 AM EDT Gender Identity Female 10/14/2024 10:15 AM EDT Sexual Orientation Heterosexual or Straight 07/2024 10:15 AM EDT documented as of this encounter Plan of Treatment Upcoming Encounters Date Type Department Care Team (Late st Contact Info) Description 12/15/2024 11:45 AM EDT Office Visit [place] [place] [address] [place] [address] Cynthia Barry MD [address] [facility] [address] [facility] [place] [address] documented as of this encounter Visit Diagnoses Diagnosis Essential hypertension Unspecified essential hypertension documented in this encounter Care Teams Straddle Bug Relationship Specialty Start Date End Date Farzana Aldana MD [address] [facility] #A PCP - General 06/26/22 documented as of this encounter
--- OUTSIDE RECORDS SUMMARY | 2024-11-10 15:01 | XMS_ITS | Clinical Summary ---
Author Organization [facility] Address [id number] [address] [place] [address] Care Team Providers Care Palletizer Operator Name Role Phone Unavailable Primary Care Provider Unavailabl e Social History Tobacco Use Types Packs/Day Years Used Date Smoking Tobacco: Never Assessed Childcare Answer Date Recorded Childcare Unknown 11/24/2018 Employment Answer Date Recorded Employment Unknown 11/24/2018 Comments Unknown Sex and Gender Information Value Date Recorded Sex Assigned at Not on file Legal Sex Female 11:21 AM EDT Gender Identity Not on file Sexual Orientation Not on file Plan of Treatment Health Maintenance Due Date Last Done Comments Depression Screening 1968 Tobacco Screening 1968 Adult BMI Screening 01/28/1974 DTaP,Tdap and Td Vaccines (1 - Tdap) 01/28/1975 Fall Risk Screening 01/28/2021 COVID-19 Vaccine (2023-2 5 season) 2024 05/23/2021, 09/18/2020, 08/28/2020 Influenza Vaccine 02/13/2025 04/01/2021, , 03/25/2019, Additional history exists Zoster (Shingles) Vaccine Completed 06/28/2018, Medical Devices Not on file Insurance [employer]VANT[employer] MEDICARE
--- OUTSIDE RECORDS SUMMARY | 2024-11-10 15:01 | XMS_ITS | Referral Summary ---
Author Organization [facility] Address [address] [place] [address] Care Team Providers Care Jewelry Designer Name Role Phone Farzana Aldana MD Primary Care Provider [phone] Encounters Date Type Department Care Team Description 11/10/2024 2:00 PM EDT Office Visit [address] [phone] Cynthia Barry MD Orthostatic hypotension (Primary Dx); Benign hypertensive heart disease with heart failure (CMS/HCC) 10/18/2024 10:45 AM EDT Office Visit [address] [address] Cynthia Barry MD Mixed hyperlipidemia (Primary Dx); Essential hypertension 10/05/2024 Refill [facility] [address] [place] [address] Cynthia Barry MD Benign hypertensive heart disease without congestive heart failure; Chest pain, unspecified type from Last 3 Months Allergies Active Allergy Reactions Criticality Noted Date [...] with evening meal. 180 tablet 3 04/28/2024 5 Active lisinopril 40 mg tabletIndications:Be nign hypertensive [...] reviewed with patient Irritable bowel syndrome 09/29/2013 Social History Tobacco Use Types Packs/Day Years [...] Description 12/15/2024 11:45 AM EDT Office Visit [facility] [address] [place] [address] Cynthia Barry MD [address] [facility] [address] [facility] [place] [address] Care Teams Jewelry Designer Relationship Specialty Start Date End Date Farzana Aldana MD [address] [place] [address] #A PCP - General 06/26/22
--- OUTSIDE RECORDS SUMMARY | 2024-11-10 15:01 | XMS_ITS | Encounter Summary ---
Author Organization [facility] Address [address] [place] [address] Care Team Providers Care Pole Cutter Name Role Phone Farzana Aldana MD Primary Care Provider Ramez Mccauley DO Unavailable [phone] Mer Rodriguez CADD TECHNICIAN Unavailable [phone] Paula Irizarry NP Unavailable [phone] Encounter Details Date Type Department Care Team (Late st Contact Info) Description 09/12/2024 Orders Only [facility] [address] [place] [address] Ramez Mccauley DO [address] [place] [address] Social History Tobacco Use Types Packs/Day Years Used Date Smoking Tobacco: Never Assessed Comments Unknown Sex and Gender Information Value Date Recorded Sex Assigned at Female 03/23/2024 3:55 PM EDT Legal Sex Female 7:09 PM EDT Gender Identity Female 03/23/2024 3:55 PM EDT Sexual Orientation Not on file documented as of this encounter Plan of Treatment Upcoming Encounters Date Type Department Care Team (Late st Contact Info) Description 01/23/2025 9:00 AM EDT Office Visit [facility] [address] [place] [address] Paula Irizarry NP [address] [place] [address] 01/31/2025 1:45 PM EDT Office Visit [facility] [address] [address] Ramez Mccauley DO [address] [id number] documented as of this encounter Procedures Procedure Name Priority Date/Time Associated Diagnosis Comments MRI LUMBAR SPINE WO CONTRAST Routine 09/12/2024 8:01 AM EDT documented in this encounter Results * MRI LUMBAR SPINE WO CONTRAST (09/12/2024 8:01 AM EDT) Anatomical Region Laterality Modality Radiographic Meagan ging Ramez Mccauley DO IMG XR PROCEDURES Final R esult documented in this encounter Visit Diagnoses Not on filedocumented in this encounter Care Teams Pole Cutter Relationship Specialty Start Date End Date Farzana Aldana MD PCP - General Family Medicine 02/25/24 Ramez Mccauley DO [phone] Referring Physician Neurology 05/17/24 Mer Rodriguez NP [address] [place] [phone] Nurse Practitioner Neurology 05/17/24 Paula Irizarry NP [address] [address] Nurse Practitioner Neurology 05/17/24 documented as of this encounter
[2024-11-10 15:27] LABS: Basophils Percent Auto 0.3 % (0.2-2.0); Eosinophils Absolute Auto 0.3 10^3/uL (0.0-0.7); Eosinophils Percent Auto 5.2 % (0.9-7.0); Hematocrit 38.2 % (36.0-48.0); Hemoglobin 12.6 g/dL (12.0-16.0); Immature Granulocytes Abs Auto 0.03 10^3/uL (0.00-0.03); Immature Granulocytes Pct Auto 0.5 % (0.0-0.5); Lymphocytes Absolute Auto 1.2 10^3/uL (1.2-3.8); Lymphocytes Percent Auto 19.2 % (20.5-60.0); Mean Corpuscular Hemoglobin 28.3 pg (26.7-34.0); Mean Corpuscular Volume 85.8 fL (81.0-99.0); Mean Platelet Volume 9.3 fL (9.5-13.5); Monocytes Absolute Auto 0.7 10^3/uL (0.3-0.8); Monocytes Percent Auto 11.9 % (1.7-12.0); Neutrophils Absolute Auto 3.9 10^3/uL (1.4-6.5); Neutrophils Percent Auto 62.9 % (43.0-75.0); Platelet Count 244 10^3/uL (150-450); Red Blood Count 4.45 10^6/uL (4.20-5.40); White Blood Count 6.2 10^3/uL (4.0-11.0)
[2024-11-10 15:46] LABS: Alanine Aminotransferase 36 U/L (14-59); Albumin Globulin Ratio 1.1; Albumin Level 3.7 g/dL (3.4-5.0); Alkaline Phosphatase 92 U/L (46-116); Anion Gap 10.1; Aspartate Amino Transferase 28 U/L (15-37); BUN Creatinine Ratio 26.3; Bilirubin Total 0.4 mg/dL (0.2-1.0); Calcium 9.7 mg/dL (8.5-10.1); Carbon Dioxide 32.9 mmol/L (21.0-32.0); Chloride 104 mmol/L (98-107); Estimated GFR (African America >60 (>=60 mL/min/1.73m^2); Estimated GFR (Non-African Ame >60 (>=60 mL/min/1.73m^2); Globulin 3.5 g/dL; Glucose 96 mg/dL (74-106); Sodium 143 mmol/L (136-145); Total Protein 7.2 g/dL (6.4-8.2)
== END 2024-11-10 14:57 | disposition home or self-care (01) ==
LOC: LAB 14:59
PROVIDERS: PCP Family Medicine; Visit Provider Internal Medicine Interventional Cardiology
DX: I11.0 Hypertensive heart disease with heart failure (principal)
CPT/HCPCS: 36415; 80053; 85025

== ENCOUNTER 2025-01-14 14:16 | Emergency (ER) | payer OTHER, SELFPAY ==
--- OUTSIDE RECORDS SUMMARY | 2025-01-14 14:21 | XMS_ITS | CCD ---
Author Organization [facility] CliniSynv Care Team Providers Care Shellfish Checker Name Role Phone Alex Horton Unavailable Jeffy Ramos Unavailable MD Jeffy Ramos Attending Provider RICHARD, DR JEFFY Smith Admitting Unavailable RAMOS, DR JEFFY Smith Attending Unavailable RAMOS, DR JEFFY Smith Primary Care Unavailable ZIEBER, DR KIRK Burton Consulting Unavailable RAMOS, DR JEFFY Smith Consulting Unavailable MISC, DR MCLAUGHLIN Admitting Unavailable MISC, DR MCLAUGHLIN Attending Unavailable RAMOS, DR JEFFY Smith Primary Care Unavailable MISC, DR MCLAUGHLIN Consulting Unavailable RAMOS, DR JEFFY Smith Admitting Unavailable RAMOS, DR JEFFY Smith Attending Unavailable ARMOS, DR JEFFY Smith Primary Care Unavailable ZIEBER, DR KIRK Burton Consulting Unavailable RAMOS, DR JEFFY Smith Consulting Unavailable RAMOS, DR JEFFY Smith Primary Care Unavailable TUNG, DR JANN Burton Consulting Unavailable TUNG, DR JANN Burton Admitting Unavailable TUNG, DR JANN Burton Attending Unavailable RO BONILLA Consulting Unavailable SUNDAY, ANGELA Admitting Unavailable SUNDAY, ANGELA Attending Unavailable RAMOS, DR JEFFY Smith Primary Care Unavailable SUNDAY, ANGELA Consulting Unavailable ELTAHAWRichard, DR HAQUE Admitting Unavailable ELTAHAWRichard, DR HAQUE Attending Unavailable RAMOS, DR JEFFY mSith Primary Care Unavailable ELTAHAWRichard, DR HAQUE Consulting Unavailable NON STAFF Primary Care Provider UnavailDO Alex Key Attending Provider Gucci Meyers Unavailable [phone] Marine Watson Unavailable NON STAFF Primary Care Provider UnavailMD Gucci Christine Attending Provider JEFFY RAMOS Primary Care Physician Lissa Prather Unavailable Jeffy Ramos MD Primary Care Provider URBAN, Jean Paul R Attending Unavailable URBAN, Jean Paul R Attending Unavailable URBAN, Jean Paul R Referring Unavailable URBAN, Jean Paul R Admitting Unavailable URBAN, Jean Paul R Attending Unavailable URBAN, Jean Paul R Referring Unavailable SARANYA WAYNE Attending Unavailable Garrick DO, Christopher Unavailable [phone] Michael PROJECT PRODUCTION ENGINEER, Mer Unavailable Juan C PROJECT PRODUCTION ENGINEER, Paula Unavailable Jeffy Ramos MD Primary Care Provider Mustapha Mccauley DO Attending Provider Jeffy Ramos Primary Care Unavailable Mustapha Mccauley Attending Unavailab le Mustapha Mccauley Admitting Unavailab Jeffy Marcelino MD Primary Care Provider Michael PROJECT PRODUCTION ENGINEER, Mer Unavailable PAULA BENSON Attending Unavailable GARRICK, CHRISTOPHER Attending Unavailable GARRICK, CHRISTOPHER Referring Unavailable GARRICK, CHRISTOPHER Attending Unavailable JEFFY RAMOS Referring Unavailable BLACKSTON, TESS T Attending Unavailable GARRICK, CHRISTOPHER Referring Unavailable KELBLEY, ANGELA Attending Unavailable GARRICK, CHRISTOPHER Referring Unavailable KELBLEY, ANGELA Attending Unavailable GARRICK, CHRISTOPHER Referring Unavailable KELBLEY, ANGELA Attending Unavailable GARRICK, CHRISTOPHER Referring Unavailable GARRICK, CHRISTOPHER Attending Unavailable KELBLEY, ANGELA Attending Unavailable GARRICK, CHRISTOPHER Referring Unavailable BLACKSTON, TESS T Attending Unavailable GARRICK, CHRISTOPHER Referring Unavailable GARRICK, CHRISTOPHER Attending Unavailable ELTAHAWY, EHAB Attending Unavailable ELTAADA, EHAB Attending Unavailable ELTAHAWRichard, EHAB Attending Unavailable ELTAHAWRichard, EHAB Attending Unavailable Jeffy Ramos MD Primary Care Provider Cynthia Temple Attending Provider [phone] Jeffy Ramos MD Attending Provider Allergies Allergy Classification Reported Allergen(s) Allergy Type Date of Onset Reaction(s) Facility (17 sources) Sulf-10 Drug allergy [email or web address] Other (5 sources) Sulfonamides (Antibiotic); Translations: [Sulfa (Sulfonamide Antibiotics)] Allergy to substance 12-19-20 14 Rash [facility] (3 sources) steriod Propensity to adverse reactions 10-17-19 22 Redness of Skin [facility] (1 source) Sulfonamides (Antibiotic) Drug allergy (disorder) 01-10-[address] [facility] Repository (7 sources) HMG-CoA reductase inhibitor Drug allergy 08-27-19 14 [email or web address] Other (12 sources) Penicillin Drug Allergy 07-11-19 17 Unknown [email or web address] Other (3 sources) Allergies Reconciled Propensity to adverse reactions 04-30-20 21 Unknown [email or web address] Other (20 sources) Substance with sulfonamide structure and antibacterial mechanism of action (substance) Drug allergy 10-19-19 19 [facility] (3 sources) patient allergy list reviewed by nurse or physicia Propensity to adverse reactions 11-11-19 19 Comment:[email or web address] Other (7 sources) Statins Depletion *DIETARY PRODUCTS/DIETARY MANAGE Propensity to adverse reactions Unknown [email or web address] Other (5 sources) Sulfamethoxazole; Translations: [sulfamethoxazole ] Drug Allergy .... [facility] (1 source) rosuvastatin; Translations: [ROSUVASTATIN] Drug Allergy 02-16-20 24 [facility] Repository (1 source) Sulfur; Translations: [SULFUR] Drug Allergy 06-02-20 14 [facility] Repository Medications Current Medications Medication Drug Class(es) Dates Sig (Normalized) Sig (Original) Aspir-81 (20 sources) Aspir-81 Active aspirin 81 mg delayed release oral tablet (20 sources) Platelet Aggregation Inhibitor, Nonsteroidal Anti-inflammatory Drug Start: 08-14-2023 take 1 tablet by mouth once daily Aspirin 81 mg tablet,delayed release (DR/EC) Active 81 MG PO Daily August 14, 2023 1:00am Complies with drug therapy Start: 10-22-2016 take 1 tablet by nzaario th once daily aspirin 81 mg oral tablet 81 mg = 1 tab(s), Oral, Daily, Refills(s) 0, Prophylaxis Start Date: 10/22/16 Status: Ordered carvedilol 25 mg oral tablet (20 sources) alpha-Adrenergic Kalpana, beta-Adrenergic Kalpana Start: 10-16-2021 take 1 tablet by mouth twice daily Carvedilol 25 mg tablet Active 25 MG PO Twice daily October 16, 2021 12:00am Complies with drug therapy estradiol 0.1 mg/ml vaginal cream (2 sources) Estrogen Start: 10-16-2023 estradiol 0.1 mg/g Vag Crm 1 gm, Vaginal, As Directed, 42.5 gm, Refill(s) 4, Apply with plunger 2x per week. Also pply around outer urethra with finger., [facility], 149, cm, 10/16/23 10:35:00 EDT, Height/Length Dosing, 76.4, kg, 10/16/23 10:35:00 EDT, Weight Dosing Start Date: 10/16/23 Status: Ordered ezetimibe 10 mg oral tablet (20 sources) Dietary Cholesterol Absorption Inhibitor Start: 04-15-2024 take 1 tablet by mouth once daily Ezetimibe 10 mg tablet Active 10 MG PO Daily April 15, 2024 12:00am Complies with drug therapy fluocinonide 0.5 mg/ml topical cream (3 sources) Corticosteroid Start: 08-16-2024 Fluocinonide 0.05 % cream Active 1 APPLIC TOPICAL 2-4 TIMES PER DAY as needed for itching August 16, 2024 1:00am Complies with drug therapy gabapentin 300 mg oral capsule (20 sources) Anti-epileptic Agent Start: 04-26-2024 End: 04-26-2025 take 1 capsule by mouth in the morning, then take 1 capsule by mouth in the evening, then take 1 capsule by mouth at bedtime gabapentin (Neurontin) 300 MG capsule Indications: Paresthesia Take 1 capsule (300 mg) by mouth in the morning and 1 capsule (300 mg) in the evening and 1 capsule (300 mg) before bedtime. 90 capsule 2 04/26/2024 04/26/2025 Active hydroCHLOROthiazide 25 mg oral tablet (20 sources) Thiazide Diuretic Start: 02-18-2024 take 1 tablet by mouth once daily in the morning Hydrochlorothiazide 25 mg tablet Active 25 MG PO Every morning February 18, 2024 12:00am Complies with drug therapy Start: 10-16-2021 End: 08-14-2023 take 1 tablet by mouth once daily in the morning Hydrochlorothiazide 25 mg tablet Discontinued 25 MG PO Every morning October 16, 2021 12:00am August 14, 2023 12:19pm hydrOXYzine hydrochloride 10 mg oral tablet (14 sources) Antihistamine Start: 11-21-2022 take 1 tablet by mouth once daily at bedtime as needed hydrOXYzine HCl 10 MG 1 tablet at bedtime as needed Orally qhs prn for 30 days Nov, Active lisinopril 40 mg oral tablet (20 sources) Angiotensin Converting Enzyme Inhibitor Start: 08-14-2023 take 1 tablet by mouth once daily Lisinopril 40 mg tablet Active 40 MG PO Daily August 14, 2023 1:00am Complies with drug therapy Start: 03-12-2020 lisinopril Ora l, Daily, Refills(s) 0 Start Date: 03/12/20 Status: Ordered lisinopril 2.5 M G tablet Take 40 mg by mouth Daily Active take 1 tablet by nazario th every twenty-four hours Lisinopril 40 MG 1 tablet Orally Once a day Active take 1 tablet by nazario th every twenty-four hours Lisinopril 10 MG 1 tablet Orally Once a day Active Nitro Sublingual 0.4 (6 sources) Nitro Sublingual 0.4 Active nitroglycerin 0.3 mg sublingual tablet (20 sources) Nitrate Vasodilator Start: 02-18-2024 Nitroglycerin 0.3 mg tablet, sublingual Active 0.3 MG SUBLINGUAL Q5M as needed February 18, 2024 12:00am do not exceed 3 doses per episode Complies with drug therapy Start: 06-29-2023 End: 01-05-2024 Nitroglycerin 0.4 mg tablet, sublingual Discontinued 0.4 MG SUBLINGUAL August 14, 2023 1:00am January 05, 2024 10:00am pantoprazole 40 mg delayed release oral tablet (20 sources) Proton Pump Inhibitor Start: 10-16-2021 take 1 tablet by mouth once daily in the morning Pantoprazole 40 mg tablet,delayed release (DR/EC) Active 40 MG PO Every morning October 16, 2021 12:00am Complies with drug therapy take 1 tablet by mouth before me altime pantoprazole (ProtoNix) 20 MG EC tablet Take 20 mg by mouth in the morning. Take before meals. Do not crush, chew, or split.. Active Completed/Discontinued Medications Medication Drug Class(es) Dates Sig (Normalized) Sig (Original) acetaminophen 325 mg / oxyCODONE hydrochloride 5 mg oral tablet (11 sources) Opioid Agonist Start: 11-14-2021 take 1 tablet by mouth every four to six hours as needed oxyCODONE-Acetami nophen 5-325 MG 1 tablet as needed Orally every 4-6 hrs for 7 days Nov, Not-Taking Start: 10-22-2021 End: 01-02-2024 take 1 tablet by mouth every four hours Oxycodone-Acetaminophen (Percocet) 5-325 mg tablet Discontinued 1 TAB PO Q4H 30 October 22, 2021 January 02, 2024 9:34am Amoxicillin-Pot Clavulanate (1 source) Amoxicillin-Pot Clavulanate Not-Taking azithromycin 250 mg oral tablet (3 sources) Macrolide Antimicrobial Start: 01-05-2024 End: 02-18-2024 Azithromycin 250 mg tablet Discontinued 0 PO .COMPLEX January 05, 2024 12:00am February 18, 2024 12:11pm For 250 mg dose pack: take 500 mg today (day 1), then 250 mg for 4 days (days 2-5) PO bupivacaine hydrochloride 2.5 mg/ml injectable solution (4 sources) Amide Local Anesthetic Start: 10-11-2024 End: 10-11-2024 bupivacaine (Marcaine) 0.25 % injection 2.5 mg Start: 10-11-2024 End: 10-11-2024 bupivacaine (Marcaine) 0.25 % injection 2.5 mg Start: 10-11-2024 End: 10-11-2024 2.5 mg (1 mL), Injection, On ce, On Thu10/11/24 at 1330, For 1 dose Start: 10-11-2024 End: 10-11-2024 2.5 mg (1 mL), Injection, On ce, On Thu10/11/24 at 1330, For 1 dose cefdinir 300 mg oral capsule (17 sources) Cephalosporin Antibacterial Cefdinir 300 MG as directed Orally Not-Taking/PRN chlorthalidone 25 mg oral tablet (17 sources) Thiazide-like Diuretic take 1 tablet by mouth every twenty-four hours Chlorthalidone 25 MG 1 tablet in the morning with food Orally Once a day Not-Taking/PRN ciprofloxacin 500 mg oral tablet (2 sources) Quinolone Antimicrobial Start: take 1 tablet by mouth once daily Cipro 500 mg Tab 500 mg = 1 tab(s), Oral, Daily, take one tab day before procedure and one tab after procedure, same day of procedure, # 2 tab(s), Refills(s) 0, Pharmacy: [id number], 150, cm, 06/29/23 11:34:00 EST, Height/Length Dosing, 79, kg, 06/29/23 11:34:00 EST, Weight Dosing Start Date: 06/29/23 Status: Ordered cyclobenzaprine hydrochloride 5 mg oral tablet (4 sources) Muscle Relaxant Start: take 1 tablet by mouth every eight hours at bedtime as needed Cyclobenzaprine HCl 5 MG 1 tablet at bedtime as needed Orally every 8 hours as needed for 7 days Mar, Not-Taking dexamethasone phosphate 10 mg/ml injectable solution (4 sources) Corticosteroid Start: End: dexAMETHasone sod phos (Decadron) injection 10 mg Start: 10-11-2024 End: 10-11-2024 dexAMETHasone sod phos (Deca dron) injection 10 mg Start: 10-11-2024 End: 10-11-2024 10 mg (1 mL), Injection, Onc e, On Thu10/11/24 at 1330, For 1 dose Start: 10-11-2024 End: 10-11-2024 10 mg (1 mL), Injection, Onc e, On Thu10/11/24 at 1330, For 1 dose doxycycline hyclate 100 mg oral capsule (3 sources) Tetracycline-class Drug Start: 05-05-2024 End: 08-16-2024 take 1 capsule by mouth twice daily Doxycycline Hyclate 100 mg capsule Discontinued 100 MG PO Twice daily 03 04May 05, 2024 1:00am August 16, 2024 3:15pm escitalopram 10 mg oral tablet (13 sources) Serotonin Reuptake Inhibitor Start: 08-14-2023 End: 01-02-2024 take 1 tablet by mouth once daily Escitalopram Oxalate 10 mg tablet Discontinued 10 MG PO Daily August 14, 2023 1:00am January 02, 2024 9:35am Start: 04-09-2023 escitalopram 1 0 mg Tab Refills(s) 0 Start Date: 06/29/23 Status: Ordered fluconazole 100 mg oral tablet (17 sources) Azole Antifungal Fluconazole 100 MG 1 tablet Orally Not-Taking/PRN iohexol (OMNIPaque) 300 MG/ML injection 2 mL (4 sources) Start: 10-11-2024 End: 10-11-2024 iohexol (OMNIPaque) 300 MG/ML injection 2 mL Start: 10-11-2024 End: 10-11-2024 2 mL, Injection, Once in terri ging, Starting on Thu10/11/24 at 1317, For 1 dose meloxicam 15 mg oral tablet (20 sources) Nonsteroidal Anti-inflammatory Drug Start: 10-16-2021 End: 08-14-2023 take 1 tablet by mouth once daily in the morning Meloxicam 15 mg tablet Discontinued 15 MG PO Every morning October 16, 2021 12:00am August 14, 2023 12:19pm methylPREDNISolone 4 mg oral tablet (4 sources) Corticosteroid Start: 04-02-2022 methylPREDNISolone 4 MG as directed Orally for 6 days Mar, Not-Taking Multi For Her - (9 sources) Multi For Her - as directed Orally Not-Taking Multi For Her - as directed Orally Active nystatin [id number] unt/ml topical cream (17 sources) Polyene Antifungal Start: 08-14-2023 End: 02-18-2024 Nystatin 100,000 unit/gram cream Discontinued 1 APPLIC TOPICAL Twice daily October 14, 2023 12:05pm February 18, 2024 12:29pm [employer] application Externally Twice a day; Note: Source Status: Not-TakingundefinedPRN; Refills: 0; Provider: Richard Smith Nystatin [id number] UNIT/GM 1 application Externally Twice a day for 10 days Not-Taking/PRN Nystatin [id number] UNIT/GM 1 application Externally Twice a day for 10 days Active PEG 3350-KCl-Na Bicarb-NaCl (1 source) PEG 3350-KCl-Na Bicarb-NaCl Not-Taking rosuvastatin calcium 40 mg oral tablet (20 sources) HMG-CoA Reductase Inhibitor Start: End: 5 take 1 tablet by mouth once daily Rosuvastatin 40 mg tablet Discontinued 40 MG PO Daily April 15, 2024 12:00am July 28, 2024 11:15am Start: 01-02-2024 End: 04-15-2024 take 1 tablet by mouth every other day Rosuvastatin 20 mg tablet Discontinued 20 MG PO .QOD January 02, 2024 9:34am April 15, 2024 1:44pm Start: 06-29-2023 End: 07-28-2024 take 1 tablet by mouth once daily Rosuvastatin 40 mg tablet Discontinued 40 MG PO Daily April 15, 2024 12:00am July 28, 2024 11:15am Start: 10-16-2021 End: 01-02-2024 take 1 tablet by mouth once daily at bedtime Rosuvastatin 20 mg tablet Discontinued 20 MG PO Daily at bedtime October 16, 2021 12:00am January 02, 2024 9:35am take 1 tablet by nazario th every other day Rosuvastatin Calcium 40 MG 1 tablet Orally qod for 100 days Active traMADol hydrochloride 50 mg oral tablet (4 sources) Opioid Agonist Start: 04-02-2022 take 1 tablet by mouth every four to six hours as needed traMADol HCl 50 MG 1 tablet as needed Orally every 4-6 hours as needed for 7 days VANESSA # [id number] Mar, Not-Taking triamcinolone acetonide 40 mg/ml injectable suspension (12 sources) Corticosteroid Start: 02-23-2023 Kenalog-40 Feb, 40 mg Problems Active Problems Problem Classification Problem Date Documented Date Episodic/Chronic Adjustment disorders (3 sources) Adjustment disorder with depressed mood; Translations: [Adjustment disorder with depressed mood] Onset: 11-04-2016 Chronic Anxiety disorders (20 sources) Anxiety; Translations: [Other specified anxiety disorders] Chronic Diabetes mellitus without complication (3 sources) Increased glucose level; Translations: [Other abnormal glucose] 03-15-2024 Episodic Disorders of lipid metabolism (20 sources) Dyslipidemia; Translations: [Hyperlipidemia, unspecified] Onset: 02-19-2022 Chronic Essential hypertension (20 sources) Essential hypertension; Translations: [Essential (primary) hypertension] Onset: 03-10-2022 Chronic Fluid and electrolyte disorders (20 sources) Hypokalemia; Translations: [Hypokalemia] 08-14-2023 Episodic Genitourinary symptoms and ill-defined conditions (13 sources) Mixed incontinence; Translations: [Incontinence without sensory awareness] Onset: 06-29-2023 Chronic Genitourinary symptoms and ill-defined conditions (12 sources) Dysuria; Translations: [Dysuria] Onset: 03-06-2016 Episodic Hypertension with complications and secondary hypertension (2 sources) Hypertensive heart disease with heart failure; Translations: [Hypertensive heart disease with heart failure] Onset: 11-10-2024 Chronic Immunizations and screening for infectious disease (3 sources) Vaccination given; Translations: [Encounter for immunization] Episodic Malaise and fatigue (20 sources) Fatigue; Translations: [Other fatigue] 08-14-2023 Episodic Menopausal disorders (4 sources) Atrophic vaginitis; Translations: [Postmenopausal atrophic vaginitis] Onset: 10-16-2023 Chronic Mood disorders (4 sources) Depressive disorder 06-29-2023 Chronic Mycoses (6 sources) Candidiasis of skin and nails; Translations: [Candidiasis of skin and nail] Onset: 11-16-2017 Episodic Nonmalignant breast conditions (3 sources) Inflammatory disorder of breast; Translations: [Mastitis without abscess] Episodic Nutritional deficiencies (3 sources) Iron deficiency; Translations: [Iron deficiency] 03-15-2024 Episodic Osteoarthritis (20 sources) Osteoarthritis of left knee joint; Translations: [Unilateral primary osteoarthritis, left knee] Onset: 09-23-2021 Resolved: 10-28-2021 Chronic Other aftercare (2 sources) Surgical follow-up; Translations: [Encounter for removal of sutures] 08-17-2023 Episodic Other aftercare (1 source) Removal of sutures done; Translations: [Encounter for removal of sutures] 08-17-2023 Episodic Other circulatory disease (2 sources) Orthostatic hypotension; Translations: [Orthostatic hypotension] Onset: 11-10-2024 Episodic Other connective tissue disease (1 source) Other specified soft tissue disorders Episodic Other connective tissue disease (3 sources) Other symptoms and signs involving the musculoskeletal system; Translations: [Other musculoskeletal symptoms referable to limbs] Onset: 09-06-2024 05-24-2024 Episodic Other diseases of bladder and urethra (4 sources) Urethral stricture; Translations: [Unspecified urethral stricture, female] Onset: 10-16-2023 Episodic Other ear and sense organ disorders (3 sources) Otitis externa of left ear; Translations: [Unspecified otitis externa, left ear] Chronic Other ear and sense organ disorders (20 sources) Impacted cerumen; Translations: [Impacted cerumen, left ear] Onset: 10-05-2017 08-18-2024 Episodic Other ear and sense organ disorders (1 source) Impacted cerumen, bilateral; Translations: [Impacted cerumen] 08-16-2024 Episodic Other ear and sense organ disorders (1 source) Impacted cerumen of bilateral ears; Translations: [Impacted cerumen, bilateral] 08-18-2024 Episodic Other inflammatory condition of skin (1 source) Pruritus, unspecified Episodic Other inflammatory condition of skin (3 sources) Lichen simplex chronicus; Translations: [Lichen simplex chronicus] Episodic Other nervous system disorders (3 sources) Peripheral nerve disease ; Translations: [Polyneuropathy, unspecified] 03-22-2024 Chronic Other nervous system disorders (20 sources) Abnormal gait; Translations: [Other abnormalities of gait and mobility] Episodic Other nervous system disorders (17 sources) Paresthesia; Translations: [Paresthesia of skin] 04-19-2024 Episodic Other nervous system disorders (3 sources) Impairment of balance; Translations: [Other abnormalities of gait and mobility] 08-14-2023 Episodic Other non-traumatic joint disorders (20 sources) Arthralgia of the pelvic region and thigh; Translations: [Pain in left hip] Onset: 08-06-2018 Episodic Other non-traumatic joint disorders (2 sources) Effusion, right ankle Episodic Other non-traumatic joint disorders (3 sources) Hip pain; Translations: [Pain in right hip] 08-16-2024 Episodic Other non-traumatic joint disorders (1 source) Pain in right hip; Translations: [Pain in joint, pelvic region and thigh] 08-16-2024 Episodic Other nutritional; endocrine; and metabolic disorders [...] Onset: 09-24-2022 Episodic Other upper respiratory infections (20 sources) Acute pharyngitis, unspecified; Translations: [Acute laryngitis] [...] Menopause present; Translations: [Asymptomatic menopausal state] Episodic Residual codes; unclassified (3 sources) Bilateral lower limb edema; Translations: [Localized edema] 08-14-2023 Episodic Residual codes; unclassified (3 sources) Persistent insomnia; Translations: [Insomnia, unspecified] 08-14-2023 Episodic Spondylosis; intervertebral disc disorders; other back problems (6 sources) Lumbar spondylosis; Translations: [Spondylosis without myelopathy or radiculopathy, lumbar region] 09-13-2024 Chronic Spondylosis; intervertebral disc disorders; other back problems (20 sources) Radiculopathy, lumbar region; Translations: [Left side sciatica] Onset: 03-31-2022 Episodic Unclassified (3 sources) Acute candidiasis of vulva and vagina; Translations: [Acute candidiasis of vulva and vagina] Unclassified (4 sources) Asymptomatic microscopic hematuria 06-29-2023 Varicose veins of lower extremity (1 source) Asymptomatic varicose veins of bilateral lower extremities Episodic Viral infection (3 sources) Disease caused by 2019-nCoV; Translations: [COVID-19] 08-14-2023 Episodic Past or Other Problems Problem Classification [...] 08-25-2016 Episodic Other aftercare (1 source) terminal carman (current) use of aspirin; Translations: [WELLNESS TRAINER CURRENT USE OF ASPIRIN] Onset: 05-07-2022 Episodic Other aftercare (1 source) Other assisted (current) drug therapy; Translations: [OTH [facility] CURRENT DRUG THERAPY] Onset: 05-07-2022 Episodic Other [...] with and (suspected) exposure to covid-19 Z20.822 Unclassified (2 sources) Weakness of both lower extremities 05-24-2024 Viral infection (20 sources) Disease caused by 2019-nCoV; Translations: [COVID-19] Results Test Name Value Interpretation Reference Range Facility Office Visiton 12-15-2024 Follow-up visit [id number] Pebbles Johnson 1955 F Date Provider Department Center 12/15/2024 [id number] TEMPLE [facility] Family History Problem Relation Age of Onset Emphysema Father Cancer Other Coronary artery disease Other Depression Other Family Status - Relation Status Age at Mother Father Other Level of Service:[address] [place] OFFICE/OUTPATIENT ESTABLISHED LOW MDM 20 MIN Normal [facility] Basophils Auto (Bld) [#/Vol] on 11-10-2024 Basophils (Bld) [#/Vol] 0.0 10 3/uL 0.0-0.1 [facility] Basophils/100 WBC Auto (Bld) on 11-10-2024 Basophils/100 WBC (Bld) 0.3 % 0.2-2.0 [facility] Eosinophils/100 WBC Auto (Bl d)on 11-10-2024 Eosinophils/100 WBC (Bld) 5.2 % 0.9-7.0 [facility] Erythrocyte distribution wid th Auto (RBC) [Ratio]on 11-10-2024 Erythrocyte distribution width (RBC) [Ratio] 14.0 % 11.0-15.0 [facility] Estimated glomerular filtrat ion rate (GFR) non- Americanon 11-10-2024 GFR/1.73 sq M.predicted among non-blacks MDRD (S/P/Bld) [Vol rate/Area] mL/min/{1.73_m2} >=60 mL/min/1.73m 2 [facility] Globulin Calc (S) [Mass/Vol] on 11-10-2024 Globulin (S) [Mass/Vol] 3.5 g/dL [facility] Hematocrit Auto (Bld) [Volum e fraction]on 11-10-2024 Hematocrit (Bld) [Volume fraction] 38.2 % 36.0-48.0 [facility] Hemoglobin [Mass/volume] in Bloodon 11-10-2024 Hemoglobin (Bld) [Mass/Vol] 12.6 g/dL 12.0-16.0 [facility] Laboratory - Chemistry and C hemistry - challengeon 11-10-2024 Albumin [Mass/Vol] 3.7 g/dL 3.4-5.0 [facility] [facility] ALP [Catalytic activity/Vol] 92 U/L 46-116 [facility] ALT [Catalytic activity/Vol] 36 U/L 14-59 [facility] AST [Catalytic activity/Vol] 28 U/L 15-37 [facility] Bilirubin [Mass/Vol] 0.4 mg/dL 0.2-1.0 [facility] Calcium [Mass/Vol] 9.7 mg/dL 8.5-10.1 [facility] Chloride [Moles/Vol] 104 mmol/L 98-107 [facility] CO2 [Moles/Vol] 32.9 mmol/L High 21.0-32.0 [facility] Creatinine [Mass/Vol] 0.80 mg/dL 0.55-1.02 [facility] GFR/1.73 sq M.predicted MDRD (S/P/Bld) [Vol rate/Area] mL/min/{1.73_m2} >=60 mL/min/1.73m 2 [facility] Glucose [Mass/Vol] 96 mg/dL 74-106 [facility] Potassium [Moles/Vol] 4.0 mmol/L 3.5-5.1 [facility] Protein [Mass/Vol] 7.2 g/dL 6.4-8.2 [facility] Sodium [Moles/Vol] 143 mmol/L 136-145 [facility] Urea nitrogen [Mass/Vol] 21.0 mg/dL High 7.0-18.0 [facility] Urea nitrogen/Creatinine [Mass ratio] 26.3 mg/mg [facility] Laboratory - Hematology and Cell countson 11-10-2024 Immature granulocytes/100 WBC (Bld) 0.5 % 0.0-0.5 [facility] Leukocytes [#/volume] correc garcía for nucleated erythrocytes in Blood by Automated counon 11-10-2024 WBC corrected for nucl RBC Auto (Bld) [#/Vol] 6.2 10 3/uL 4.0-11.0 [facility] Lymphocytes Auto (Bld) [#/Vo l]on 11-10-2024 Lymphocytes (Bld) [#/Vol] 1.2 10 3/uL 1.2-3.8 [facility] Lymphocytes/100 WBC Auto (Bl d)on 11-10-2024 Lymphocytes/100 WBC (Bld) 19.2 % Low 20.5-60.0 [facility] MCH Auto (RBC) [Entitic mass ]on 11-10-2024 MCH (RBC) [Entitic mass] 28.3 pg 26.7-34.0 [facility] MCHC Auto (RBC) [Mass/Vol]on 11-10-2024 MCHC (RBC) [Mass/Vol] 33.0 g/dL 29.9-35.2 [facility] MCV Auto (RBC) [Entitic vol] on 11-10-2024 MCV (RBC) [Entitic vol] 85.8 fL 81.0-99.0 [facility] Monocytes Auto (Bld) [#/Vol] on 11-10-2024 Monocytes (Bld) [#/Vol] 0.7 10 3/uL 0.3-0.8 [facility] Monocytes/100 WBC Auto (Bld) on 11-10-2024 Monocytes/100 WBC (Bld) 11.9 % 1.7-12.0 [facility] Neutrophils Auto (Bld) [#/Vo l]on 11-10-2024 Neutrophils (Bld) [#/Vol] 3.9 10 3/uL 1.4-6.5 [facility] Neutrophils/100 WBC Auto (Bl d)on 11-10-2024 Neutrophils/100 WBC (Bld) 62.9 % 43.0-75.0 [facility] No Panel Informationon 11-10 Eosinophils # (Auto) 0.3 10 3/uL 0.0-0.7 [facility] Immature Granulocyte # (Auto) 0.03 10 3/uL 0.00-0.03 [facility] Office Visiton 11-10-2024 Follow-up visit [id number] Pebbles Johnson 1955 F Date Provider Department Center 11/10/2024 [facility] Family History Problem Relation Age of Onset Cancer Other Coronary artery disease Other Depression Other Family Status - Relation Status Age at Other Level of Service:02876 [place] OFFICE/OUTPATIENT ESTABLISHED MOD MDM 30 MIN Normal [facility] Platelet mean volume Auto (B ld) [Entitic vol]on 11-10-2024 Platelet mean volume (Bld) [Entitic vol] 9.3 fL Low 9.5-13.5 [facility] Platelets Auto (Bld) [#/Vol] on 11-10-2024 Platelets (Bld) [#/Vol] 244 10 3/uL 150-450 [facility] RBC Auto (Bld) [#/Vol]on RBC (Bld) [#/Vol] 4.45 10 6/uL 4.20-5.40 [facility] Serum or plasma albumin/glob ulin mass ratioon 11-10-2024 Albumin/Globulin [Mass ratio] 1.1 {ratio} [facility] Serum or plasma anion gap de terminationon 11-10-2024 Anion gap [Moles/Vol] 10.1 mmol/L [facility] Office Visiton 10-18-2024 Follow-up visit [id number] Pebbles Johnson 1955 F Date Provider Department Center 10/18/2024 [facility] Family History Problem Relation Age of Onset Cancer Other Coronary artery disease Other Depression Other Family Status - Relation Status Age at Other Level of Service:[address]54 [place] OFFICE/OUTPATIENT ESTABLISHED LOW MDM 20 MIN Normal [facility] Magnetic resonance imaging r eportOrdered By: Karan Merrill on 09-06-2024 Study [place] [address] MRI Report Signed Patient: Pebbles Johnson MR#: [id number] : 1955 Acct:[id number] Age/Sex: 69 / F ADM Date: 5 Loc: Room: Type: [facility] Attending Dr: Mustapha Mccauley DO Copies to: Mustapha Mccauley DO~ Ordering Provider: Mustapha Mccauley DO Date of Service: 09/06/24 MR/MR lumbar spine wo con: [id number] ([id number]) XR/XR pre/post mri xray: R29.898 MRI lumbar spine without contrast/2 views of the lumbar spine INDICATION: Weakness of both lower extremities COMPARISON: None FINDINGS: X-rays of the lumbar spine: Mild dextrocurvature of the lumbar spine mild levocurvature of the lower thoracic spine. There is 5 mm anterolisthesis L4 on L5. 4 mm anterolisthesis L5 on S1. Moderate facet arthropathy L4-S1. Qzlh-hv-ntvbcxtw facet arthropathy L3-4. Lumbar vertebral heights are maintained. Intervertebral heights are maintained. MRI of the lumbar spine: Lumbar vertebral heights and alignment maintained. Anterolisthesis of L4-L5 noted 2 mm. Bone marrow signal is unremarkable for patient's age. Conus medullaris terminates normally at mid L1. Paraspinal softtissues otherwise unremarkable. T12-L1: No significant disc disease, central canal or neural foraminal narrowingidentified. L1-2: Broad-based disc bulge with left subarticular to foraminal zone protrusion. This narrows the left subarticular zone and left foraminal zone. Mild facet arthropathy. Moderate left neural foraminal narrowing. Please correlate with possible left L1 and L2 radiculopathy. L2-3: Circumferential disc bulge with facet arthropathy. Mild neural foraminal narrowing. Minor central canal narrowing. L3-4: Broad-based disc bulge with ghzs-wi-jgsccsot facet arthropathy. Bypm-hn-pyeglvzm central canal stenosis. Mild/moderate right neural from narrowing. Moderate left neural foraminal narrowing. L4-5: Circumferential disc bulge with moderate to severe facet arthropathy. Slight uncovering the posterior disc. There is crowding of both subarticular zones, correlate with L5 radiculopathy. Mild central canal narrowing. Pjqq-wj-zmcjdbnx neural foraminal narrowing. L5-S1: Moderate severe right and severe left facet arthropathy. Mild foraminal narrowing. No significant central stenosis or focal disc protrusion. MR/MR lumbar spine wo con IMPRESSION: Multilevel prominent posterior element degenerative changes. 2 mm anterolisthesis of L4-L5 on the MRI. This measures 5 mm on the standing x-rays. Moderate left-sided foraminal narrowing at L1-L2 and at L3-4 Impression dictated by: Karan Merrill M.D.09/06/2024 5:09 PM Dictation Location: [place] [address] Transcribed By: [facility] 09/06/241708 Dictated By: Karan Merrill MD 09/06/241654 Signed By: 09/06/241708 [facility] Work Phone: XR pre/post mri xrayon 09-06 XR pre/post mri [place] [address] MRI Report Signed Patient: Pebbles Johnson MR#: [id number] : 1955 Acct:[id number] Age/Sex: 69 / F ADM Date: 09/06/24 Loc: MR Room: Type: [facility] Attending Dr: Mustapha Mccauley DO Copies to: Mustapha Mccauley DO Ordering Provider: Mustapha Mccauley DO Date of Service: 09/06/24 MR/MR lumbar spine wo con: [id number] ([id number]) XR/XR pre/post mri xray: [id number] MRI lumbar spine without contrast/2 views of the lumbar spine INDICATION: Weakness of both lower extremities COMPARISON: None FINDINGS: X-rays of the lumbar spine: Mild dextrocurvature of the lumbar spine mild levocurvature of the lower thoracic spine. There is 5 mm anterolisthesis L4 on L5. 4 mm anterolisthesis L5 on S1. Moderate facet arthropathy L4-S1. Wftk-vj-dxreazco facet arthropathy L3-4. Lumbar vertebral heights are maintained. Intervertebral heights are maintained. MRI of the lumbar spine: Lumbar vertebral heights and alignment maintained. Anterolisthesis of L4- L5 noted 2 mm. Bone marrow signal is unremarkable for patient's age. Conus medullaris terminates normally at mid L1. Paraspinal soft tissues otherwise unremarkable. T12-L1: No significant disc disease, central canal or neural foraminal narrowing identified. L1-2: Broad-based disc bulge with left subarticular to foraminal zone protrusion. This narrows the left subarticular zone and left foraminal zone. Mild facet arthropathy. Moderate left neural foraminal narrowing. Please correlate with possible left L1 and L2 radiculopathy. L2-3: Circumferential disc bulge with facet arthropathy. Mild neural foraminal narrowing. Minor central canal narrowing. L3-4: Broad-based disc bulge with kdyi-yd-udkxhkja facet arthropathy. Ojvp-jc-wrjfceiu central canal stenosis. Mild/moderate right neural from narrowing. Moderate left neural foraminal narrowing. L4-5: Circumferential disc bulge with moderate to severe facet arthropathy. Slight uncovering the posterior disc. There is crowding of both subarticular zones, correlate with L5 radiculopathy. Mild central canal narrowing. Oiwb-wd-oqbvdbsl neural foraminal narrowing. L5-S1: Moderate severe right and severe left facet arthropathy. Mild foraminal narrowing. No significant central stenosis or focal disc protrusion. MR/MR lumbar spine wo con IMPRESSION: Multilevel prominent posterior element degenerative changes. 2 mm anterolisthesis of L4-L5 on the MRI. This measures 5 mm on the standing x-rays. Moderate left-sided foraminal narrowing at L1-L2 and at L3-4 Impression dictated by: Karan Merrill M.D.09/06/2024 5:09 PM Dictation Location: [facility] Transcribed By: SADIA 09/06/241708 Dictated By: Karan Merrill MD 09/06/241654 Signed By: 09/06/241708 Normal [facility] EMG 2 Extremitieson 05-17-20 24 S1 radiculopathy, bilaterally, mild [facility] NVC 9-10 Nerveson 05-17-2024 S1 radiculopathy, bilaterally, mild [facility] Ambulatory Visit Summaryon 1 07-03-2023 Ambulatory Visit Summary Ambulatory Visit Summary PEBBLES JOHNSON :1955 Visit Date:05/03/2024 Ambulatory Visit Instructions Your Diagnosis Unspecified urethral stricture, female Mixed incontinence Vaginal atrophy Asymptomatic microscopic hematuria Your Care Team Attending Physician - SARANYA WAYNE PA-C Primary Care Physician - JEFFY RAMOS MD This Is Your Medications List aspirin (aspirin 81 mg oral tablet) carvedilol (carvedilol 25 mg Tab) estradiol topical (estradiol 0.1 mg/g Vag Crm) ezetimibe hydrochlorothiazide lisinopril nitroglycerin (nitroglycerin 0.4 mg sublingual Tab) pantoprazole (Pantoprazole [address] Tab) rosuvastatin (rosuvastatin 40 mg Tab) Procedures Performed Cystourethroscopy with dilation of urethral stricture (07/28/2023), Urodynamics (07/28/2023), Appendectomy, Colonoscopy, Hysterectomy. Discharge Vitals Temperature (Oral) 37 ???C Heart Rate (Peripheral) 73 Respiratory Rate 18 Blood Pressure 123/67 Height 149 cm Height 59 in Weight 76 kg Weight 167.551 lb BMI 34.23 What to do next You Need to Schedule the Following Appointments Follow Up with SARANYA WAYNE PA-C, URL When: Within 1 year Where: Medications What How Much When Instructions Unchanged aspirin (aspirin 81 mg oral tablet) 1 Tablets By Mouth Every day Unchanged carvedilol (carvedilol 25 mg Tab) Unchanged estradiol topical (estradiol 0.1 mg/ g Vag Crm) 1 Gram Vaginal As Directed Apply with plunger 2x per week. Also pply around outer urethra with finger. Unchanged ezetimibe 10 Milligram By Mouth Unchanged hydrochlorothiazide 25 Milligram By Mouth Unchanged lisinopril By Mouth Every day Unchanged nitroglycerin (nitroglycerin 0.4 mg sublingual Tab) 1 Tablets Sublingual Every 5 minutes as needed for for chest pain Unchanged pantoprazole (Pantoprazole [address] Tab) By Mouth Every day Unchanged rosuvastatin (rosuvastatin 40 mg Tab) By Mouth Every day Allergies sulfamethoxazole (....) Problems Ongoing - Any problem that you are currently receiving treatment for. Asymptomatic microscopic hematuria Depression Hyperlipemia Hypertension Mixed incontinence Unspecified urethral stricture, female Vaginal atrophy Historical - Any problem that you are no longer receiving treatment for. History of UTI Incontinence without sensory awareness Patient Survey You may receive a survey via text or e-mail asking about your office visit. Please share your experience with us by completing your survey. We appreciate your feedback and thank you for choosing us for your care. Education Materials Overactive Bladder, Adult Overactive bladder is a condition in which a person has a sudden and frequent need to urinate. A person might also leak urine if he or she cannot get to the bathroom fast enough (urinary incontinence). Sometimes, symptoms can interfere with work or social activities. What are the causes? Overactive bladder is associated with poor nerve signals between your bladder and your brain. Your bladder may get the signal to empty before it is full. You may also have very sensitive muscles that make your bladder squeeze too soon. This condition may also be caused by other factors, such as: ??? Medical conditions: ? Urinary tract infection. ? Infection of nearby tissues. ? Prostate enlargement. ? Bladder stones, inflammation, or tumors. ? Diabetes. ? Muscle or nerve weakness, especially from these conditions: ? A spinal cord injury. ? Stroke. ? Multiple sclerosis. ? Parkinson's disease. ??? Other causes: ? Surgery on the uterus or urethra. ? Drinking too much caffeine or alcohol. ? Certain medicines, especially those that eliminate extra fluid in the body (diuretics). ? Constipation. What increases the risk? You may be at greater risk for overactive bladder if you: ??? Are an older adult. ??? Smoke. ??? Are going through menopause. ??? Have prostate problems. ??? Have a neurological disease, such as stroke, dementia, Parkinson's disease, or multiple sclerosis (MS). ??? Eat or drink alcohol, spicy food, caffeine, and other things that irritate the bladder. ??? Are overweight or obese. What are the signs or symptoms? Symptoms of this condition include a sudden, strong urge to urinate. Other symptoms include: ??? Leaking urine. ??? Urinating 8 or more times a day. ??? Waking up to urinate 2 or more times overnight. How is this diagnosed? This condition may be diagnosed based on: ??? Your symptoms and medical history. ??? A physical exam. ??? Blood or urine tests to check for possible causes, such as infection. You may also need to see a health care provider who specializes in urinary tract problems. This is called a urologist. How is this treated? Treatment for overactive bladder depends on the cause of your condition (more content not included)... Normal [facility] Reminderson 05-03-2024 Reminders Reminders From: [place] To: EU - Administrative; Sent: 05/03/2024 16:11:34 EST Show up: 10/13/2024 16:11:00 EDT Subject: 1 yr f/u Due Date/Time: 04/29/2025 16:11:00 EST Reminder/Recall Patient needs an appointment with ERNESTINE for a 1 yr F/U Normal [facility] Urology Office/Clinic Noteon 05-03-2024 Urology Office/Clinic Note Urology Office/Clinic Note Chief Complaint 6mo f/u HPI Staff 69 year old female here for 6 month F/U after starting estradiol Previous DX: unspecified urethral stricture, mixed incontinence, incontinence without awareness, vaginal atrophy and asymptomatic micro hematuria S/p Cysto/UD 10/31/09 and cysto/UD with urodynamics 07/28/23 *Pt. prescribed Estradiol cream 2xper week at last visit. Has not used it recently. States she is trying to drink more water Dysuria: denies Incomplete bladder emptying: denies Hematuria: denies Frequency: about every 3-4hrs (states she is on diuretic) Urgency: denies - only if she holds her urine too long Nocturia: 2x per night Stream: good stream Leaking: only when coughing Post void dripping: denies Wearing pads/ Depends: wears pads Urge incontinence: sometimes - not often Stress incontinence: yes - only a small amount Incontinence without Sensory Awareness: denies Abdominal pain: denies Flank pain: denies Review of Systems PHQ Score Initial Depression Screen Score: 0 SCORE Physical Exam Vitals & Measurements T: 37 ???C(Oral) HR: 73(Peripheral) RR: 18 BP: 123/67 HT: 59 in HT: 149 cm WT: 76 kg WT: 167.551 lb BMI: 34.23 Assessment/Plan 1. Unspecified urethral stricture, female (N35.92: Unspecified urethral stricture, female) S/p Cysto/UD 10/31/09. S/p cysto/UD 07/28/23. Dilated to 30 Fr. Reports improvement in emptying since dilation 10/16/23. TODAY: Continues to do well. No worsening stream yet. No UTIs. No straining. Ordered: Body Mass Index (BMI) documented 3008F Current tobacco non-user 1036F Depression Screening Negative 3352F E&M of Est. Patient Moderate 30-39 Min 06526 Influenza immunization status assessed 1030F Medication list documented in medical record 1159F Most recent diastolic blood pressure <80 mm Hg 3078F Patient screen for fall risk: no falls in last year or 1 fall with no injury in last year 1101F Review of all meds by a prescribing practitioner or clinical pharmacist documented in EHR 1160F Systolic BP <130 mm Hg (Most Recent) 3074F Urnls Dip Stick Auto w/o Microscopy POC 59504 2. Mixed incontinence (N39.46: Mixed incontinence) S/p urodynamics 07/28/23. Failed Vesicare 5mg in the past. No CHAY seen on cysto/UD 07/28/23. Posterior laxity. No true prolapse. 10/16/23: Still wearing a panty liner, changes 1-2x daily. Leakage has improved since procedure. Does take a water pill. TODAY: BBSQ 15 good control. Sx not bothersome enough to warrant medication at this time. Ordered: Body Mass Index (BMI) documented 3008F Current tobacco non-user 1036F Depression Screening Negative 3352F E&M of Est. Patient Moderate 30-39 Min 33187 Influenza immunization status assessed 1030F Medication list documented in medical record 1159F Most recent diastolic blood pressure <80 mm Hg 3078F Patient screen for fall risk: no falls in last year or 1 fall with no injury in last year 1101F Review of all meds by a prescribing practitioner or clinical pharmacist documented in EHR 1160F Systolic BP <130 mm Hg (Most Recent) 3074F Urnls Dip Stick Auto w/o Microscopy POC 36291 3. Vaginal atrophy (N95.2: Postmenopausal atrophic vaginitis) Moderate atrophic vaginitis found cysto/UD 07/28/23. Started Estradiol cream 2x per week w plunger 10/16/23. TODAY: Admits she never really started the Estrogen cream. I explained that not only does it help w dryness, also will help w UTI prevention and help delay stricture recurrence. Pt will to start using. Proper application discussed. Ordered: Body Mass Index (BMI) documented 3008F Current tobacco non-user 1036F Depression Screening Negative 3352F E&M of Est. Patient Moderate 30-39 Min 01227 Influenza immunization status assessed 1030F Medication list documented in medical record 1159F Most recent diastolic blood pressure <80 mm Hg 3078F Patient screen for fall risk: no falls in last year or 1 fall with no injury in last year 1101F Review of all meds by a prescribing practitioner or clinical pharmacist documented in EHR 1160F Systolic BP <130 mm Hg (Most Recent) 3074F Urnls Dip Stick Auto w/o Microscopy POC 88973 4. Asymptomatic microscopic hematuria (R31.21: Asymptomatic microscopic hematuria) Hx of partial hysterectomy. Chronic. States she has had this at her gynecology appts for years. Neg cysto 07/28/23. UA 10/16/23 shows trace-intact blood. TODAY: Same as last time, trace-intact. Denies gross hematuria. No action needed. Ordered: Body Mass Index (BMI) documented 3008F Current tobacco non-user 1036F Depression Screening Negative 3352F E&M of Est. Patient Moderate 30-39 Min 30957 Influenza immunization status assessed 1030F Medication list documented in medical record 1159F Most recent diastolic blood pressure <80 mm Hg 3078F Patient screen for fall risk: no falls in last year or 1 fall with no injury in last year 1101F Review of all meds by a prescribing practitione (more content not included)... Normal [facility] Comment on above: Result Comment: Elec tronically Signed By: SARANYA WAYNE PA-C\.melissa\Date and Time Signed: 05/03/24 15:02 EST Office Visiton 02-16-2024 Follow-up visit [id number] Pebbles Johnson 1955 F Date Provider Department Center 02/16/2024 [facility] Family History Problem Relation Age of Onset Cancer Other Coronary artery disease Other Depression Other Family Status - Relation Status Age at Other Level of Service:50271 [place] OFFICE/OUTPATIENT ESTABLISHED MOD MDM 30 MIN Normal [facility] Ambulatory Visit Summaryon 0 10-16-2023 Ambulatory Visit Summary PEBBLES JOHNSON :1955 Visit Date:10/16/2023 Ambulatory Visit Instructions Your Diagnosis Unspecified urethral stricture, female Mixed incontinence Incontinence without sensory awareness Vaginal atrophy Asymptomatic microscopic hematuria Your Care Team Attending Physician - Jean Paul URBAN MD Primary Care Physician - JEFFY RAMOS MD Referring Physician - Jean Paul [...] Following Appointments Follow Up with MARYAM BEAVERS, OLEKSANDR Topete When: Where: [facility] [place] [address]- Medications What How Much When Instructions New estradiol topical (estradiol 0.1 mg/ g Vag Crm) 1 Gram Vaginal As Directed Refills: 4 Apply with plunger 2x per week. Also pply around outer urethra with finger. Pickup at [facility] Unchanged aspirin (aspirin 81 mg oral [...] physician if questions or concerns Pharmacy Information [facility]: [address] [place], [place] [phone] Allergies sulfamethoxazole (....) Problems Ongoing - Any [...] symptoms? Sympto (more content not included)... Normal [facility] Patient Educationon 10-16-19 Patient Education Obstetrics and [...] to the vagina. General instructions ? Take ejdo-rlm-rlbkhhh and prescription medicines only as told by [...] a cot (more content not included)... Normal [facility] Urology Office/Clinic Noteon 10-16-2023 Urology Office/Clinic Note [...] Information MARYAM BEAVERS, Jean Paul Burton, URL [facility] [place] [address]- Additional Instructions: 6 months Patient Education Vaginitis IKatiuska, personally scribed for Dr. Urban on 10/16/2023 [...] virus vaccine, inactivated 03/22/2022 Recorded SARS-CoV-2 (COVID-19) [id number].[id number] 03/22/2022 Recorded SARS-CoV-2 (COVID-19) mRNA BNT-162b2 vax 05/23/2021 Recorded influenza virus vaccine, inactivated 04/01/2021 Recorded SARS-CoV-2 (COVID-19) mRNA (more content not included)... [facility] Comment on above: Result Comment: Elec tronically Signed By: Jean Paul URBAN MD\.br\Date and Time Signed: 10/16/23 11:13 EDT\.br\Electronically Co-Signed By: Katiuska Hobbs\.br\Date and Time Co-Signed: 10/16/23 11:11 EDT Consent for Procedure/Surger yon 07-28-2023 Consent for Procedure/Surgery [id number]#1.00 TIFF [facility] Consent for Treatmenton 07-16 Consent for Treatment [id number] IFF [facility] IntraOperative Documentson 0 07-28-2023 IntraOperative Documents [id number]#1.00 TIFF [facility] IntraOperative Documents [id number] TIFF [facility] Main OR Intraoperative Recor don 07-28-2023 Main OR Intraoperative Record IntraOp Document Type FTURO Summary Primary Physician: Jean Paul URBAN MD Finalized Date/Time: 07/28/23 11:03:27 Pt. Name: PEBBLES JOHNSON/Sex: 1955 Female Med Rec #: [id number] Physician: Jean Paul URBAN MD Financial #: [id number] Pt. Type: O Room/Bed: / Admit/Disch: 07/28/23 08:21:27 - Institution: Case Times FTURO Entry 1 Patient Times In Room 07/28/23 10:50:00 Out Room 07/28/23 11:05:00 Procedure Times Start 07/28/23 10:54:00 Stop 07/28/23 11:01:00 Anesthesia Times Last Modified By: Juan C BLAKELY, JUANISOR, Genesis 07/28/23 11:01:52 Case Attendance FTURO Entry 1 Entry 2 Entry 3 Case Attendee MARYAM BEVAERS, Jean Paul Irizarry RN, CNOR, [place] PEÑA, Reina Hurtado Role Performed Surgeon - Primary Java J2Ee Architect - Primary Scrub - Primary Time In 07/28/23 10:50:00 07/28/23 10:50:00 07/28/23 10:50:00 Time Out 07/28/23 11:05:00 07/28/23 11:05:00 07/28/23 11:05:00 Procedure CYSTOSCOPY LOCAL WITH CYSTOSCOPY LOCAL WITH CYSTOSCOPY LOCAL WITH URETHRAL DILATION(.) URETHRAL DILATION(.) URETHRAL DILATION(.) Comments Last Modified By: Juan C RN, CNOR, Juan C RN, CNOR, Juan C BLAKELY, JUANISOR, Genesis 07/28/23 Genesis 07/28/23 Genesis 07/28/23 [...] As Preop No HEMATURIA Postop Diagnosis urethral [id number] Outcomes Met? Yes Last Modified By: KAY [...] Jean Paul URBAN MD, Verified (If Participants KAY Irizarry RN, Applicable) [...] KAY Irizarry RN, Ruthann 07/28/23 11:03 Normal [facility] Main OR Preoperative Recordo n 07-28-2023 Main OR Preoperative Record Holding Area Document Type FTURO Summary Primary Physician: Jean Paul URBAN MD Finalized Date/Time: 07/28/23 10:57:37 Pt. Name: PEBBLES JOHNSON /Sex: 1955 Female Med Rec #: [id number] Physician: Jean Paul URBAN MD Financial #: [id number] Pt. Type: O Room/Bed: / Admit/Disch: 07/28/23 [...] Complaints of Pain: No Skin Integrity Intact, Sherrill, Warm, & Dry Vitals - EU Blood Pressure 194/80 Pulse 63 bpm Respirations 18 br/min SPO2 99 % RN Reviewed Yes Last Modified By: KAY Irizarry RN, Ruthann 07/28/23 10:57:35 Finalized By: KAY Irizarry RN, Ruthann Document Signatures Signed By: Starr Villa LPN 07/28/23 10:24 KAY Irizarry RN, Ruthann 07/28/23 10:57 Normal [facility] Operative Reporton Operative Report Patient: PEBBLES JOHNSON [...] Local Cystoscopy with Urethral Dilation. Complications: None. Risks/Benefits/Informed Consent: Surgical risks, benefits, details of the [...] urine. The Urethra was dilated to: 30 Luxembourgish w/ sounds. Devices Implanted: None. Removal: Cystoscope is removed, The patient tolerated it well. Postoperative Information Discharge: Patient is discharged home with antibiotic coverage, Follow up arranged. Normal [facility] Comment on above: Result Comment: Elec tronically Signed By: Jean Paul URBAN MD\.br\Date and Time Signed: 07/28/23 11:10 EST COVID + FLU Quick Testingon 07-18-2023 SARS-CoV-2 (COVID-19) RNA ALEXA+probe Ql (Unsp spec) Negative [employer] Other COVID + FLU Quick Testing Negative [employer] Other Formson 06-30-2023 Forms [id number] IFF Normal [facility] Screenson 06-30-2023 Screens [id number] TIFF Normal [facility] Ambulatory Visit Summaryon 0 06-29-2023 Ambulatory Visit Summary PEBBLES JOHNSON:1955 Visit Date:06/29/2023 Ambulatory Visit Instructions Your Diagnosis Mixed incontinence Incontinence without sensory awareness Asymptomatic microscopic hematuria History of UTI Tests Performed Urnls Dip Stick Auto w/o Microscopy POC 49407 Your Care Team Attending Physician - Jean Paul URBAN MD Primary Care Physician - JEFFY RAMOS MD [...] cysto/urodynamics Where: [facility] [address] , [place] [address]- [phone] Medications What How Much When Instructions New ciprofloxacin (Cipro 500 mg Tab) 1 Tablets By Mouth Every day take one tab day before procedure and one tab after procedure Pickup at [facility] #[id number] Unchanged aspirin (aspirin 81 mg oral tablet) [...] physician if questions or concerns Pharmacy Information [facility] #[id number]: [address], [place] [id number] [phone] Test Results Urnls Dip Stick Auto w/o Microscopy POC 48193 (06/29/2023) Bilirubin Urine Dipstick - Negative Blood Urine Dipstick - 1+ Small Leukocytes Urine Dipstick - Negative Nitrite Urine Dipstick - Negative Protein Urine Dipstick - Trace Specific [place] Urine Dipstick - >=1.030 Urine Appearance Urine [...] diabetes med (more content not included)... Normal [facility] Patient Educationon 06-29-19 Patient Education Urology Urodynamic [...] including vitamins, herbs, eye drops, creams, and luaq-jey-bpjizhe medicines. ? Whether you are or may [...] results be (more content not included)... Normal [facility] Urology Office/Clinic Noteon 06-29-2023 Urology Office/Clinic Note [...] Paul Burton, URL [facility] [address] , [place] [phone] Additional Instructions: sched cysto/urodynamics Patient Education Urodynamic [...] Oral, Daily (more content not included)... Normal [facility] Comment on above: Result Comment: Elec tronically Signed By: Jean Paul URBAN MD\.br\Date and Time Signed: 06/29/23 11:59 EST\.br\Electronically Co-Signed By: Lucia Hensley.br\Date and Time Co-Signed: 06/29/23 11:57 EST MG MAMM SCREEN 3D FELICIA CADon 09-24-2022 MG MAMM SCREEN 3D FELICIA CAD Patient: PEBBLES JOHNSON Exam Date: 09/24/2022 : 1955 Gender:F Ordering : DR JEFFY RAMOS M.D. Admission #: [id number] Family : Order #: [id number] CLICK HERE TO VIEW EXAM RADIOLOGY REPORT [...] at age 31. LOCATION: [facility] BREAST COMPOSITION: Heterogeneously dense,which may [...] M.D. on 09/24/2022 at 13:25 Normal [facility] Urinalysis - DIPSTICKon 09-13 Appearance (U) clear [employer] Other Bilirubin Ql (U) small [employer] Other Color (U) yellow [employer] Other Glucose Ql (U) Negative [employer] Other Hemoglobin Ql (U) Negative [employer] Other Ketones Ql (U) off chart [employer] Other Leukocyte esterase Test strip Ql (U) Negative [employer] Other Nitrite Ql (U) Negative [employer] Other pH (U) 5.0 [pH] [employer] Other Protein Ql (U) Negative [employer] Other Specific gravity (U) [Rel density] 1.010 [employer] Other Urobilinogen (U) [Mass/Vol] 0.2 mg/dL [employer] Other Urinalysis - DIPSTICK [employer] Other LIPID PROFILEon 07-05-2022 CHOL-HDL RATIO NORM SEE BELOW Normal [facility] Comment on above: Result Comment: 3.3 - 4.4 LOW RISK 4.4 - 7.1 AVERAGE RISK 7.1 - 11.0 MODERATE RISK >11.0 HIGH RISK Performed By: #### L IPID #### [facility] [address] [address] [address] Carlos Barlow Cholesterol [Mass/Vol] 181 mg/dL Normal <=[address] [facility] Comment on above: Performed By: #### L IPID #### [facility] [address] [address] [address] Carlos Barlow Cholesterol in HDL [Mass/Vol] 63 mg/dL Critically high 40-[address] [facility] Comment on above: Performed By: #### L IPID #### [facility] [address] [address] [address] Carlos Barlow Cholesterol in LDL [Mass/Vol] 88.0 mg/dL Normal [facility] Comment on above: Performed By: #### L IPID #### [facility] [address] [address] [address] Carlos Barlow Cholesterol.total/C holesterol in HDL [Mass ratio] 2.9 {ratio} Normal [facility] Comment on above: Performed By: #### L IPID #### [facility] [address] [address] [address] Carlos Barlow HDL NORMAL > or = 60 mg/dl - LO W CARDIOVASCULAR RISK <40 mg/dl - HIGH CARDIOVASCULAR RISK Normal [facility] Comment on above: Performed By: #### L IPID #### [facility] [address] [address] [address] Carlos Barlow LDL CALC NORMAL SEE BELOW Normal [facility] Comment on above: Result Comment: <100 mg/dl OPTIMAL 100 - 129 mg/dl NEAR OR ABOVE OPTIMAL 130 - 159 mg/dl BORDERLINE HIGH 160 - 189 mg/dl HIGH >190 mg/dl VERY HIGH Performed By: #### L IPID #### [facility] [address] [address] [address] Carlos Barlow Triglyceride [Mass/Vol] 150 mg/dL Normal <=[address] [facility] Comment on above: Performed By: #### L IPID #### [facility] [address] [place], [place] [address] Dr. Carlos Barlow VLDL CALC 30.0 mg/dL Normal [facility] Comment on above: Performed By: #### L IPID #### [facility] [address] [place], [place] [address] Dr. Carlos Barlow XR CHEST 1 Von [...] Date: 2022-05-05 06:41 Normal [facility] XR NECK SOFT TISSUEon 2021 [...] Date: 2022-05-05 06:42 Normal [facility] XR LSPINE MIN 4 VIEWSon [...] by: KIRK CESAR Date: 2022-04-01 06:[address] [facility] LIPID PROFILEon 03-10-2022 CHOL-HDL RATIO NORM SEE BELOW Normal [facility] Comment on above: Result Comment: 3.3 - 4.4 LOW RISK 4.4 - 7.1 AVERAGE RISK 7.1 - 11.0 MODERATE RISK >11.0 HIGH RISK Performed By: #### B MP, LIPID, LIVER #### [facility] [address] [address] [address] Carlos Barlow Cholesterol [Mass/Vol] 186 mg/dL Normal <=[address] [facility] Comment on above: Performed By: #### B MP, LIPID, LIVER #### [facility] [address] [place] [address] Dr. Carlos Barlow Cholesterol in HDL [Mass/Vol] 61 mg/dL Critically high 40-[address] [facility] Comment on above: Performed By: #### B MP, LIPID, LIVER #### [facility] [address] [place] [address] Dr. Carlos Barlow Cholesterol in LDL [Mass/Vol] 90.4 mg/dL Normal [facility] Comment on above: Performed By: #### B MP, LIPID, LIVER #### [facility] [address] [address] [address] Carlos Barlow Cholesterol.total/C holesterol in HDL [Mass ratio] 3.0 {ratio} Normal [facility] Comment on above: Performed By: #### B MP, LIPID, LIVER #### [facility] [address] [place] [address] Dr. Carlos Barlow HDL NORMAL > or = 60 mg/dl - LO W CARDIOVASCULAR RISK <40 mg/dl - HIGH CARDIOVASCULAR RISK Normal [facility] Comment on above: Performed By: #### B MP, LIPID, LIVER #### [facility] [address] [place] [address] Dr. Carlos Barlow LDL CALC NORMAL SEE BELOW Normal [facility] Comment on above: Result Comment: <100 mg/dl OPTIMAL 100 - 129 mg/dl NEAR OR ABOVE OPTIMAL 130 - 159 mg/dl BORDERLINE HIGH 160 - 189 mg/dl HIGH >190 mg/dl VERY HIGH Performed By: #### B MP, LIPID, LIVER #### [facility] [address] [address] [address] Carlos Barlow Triglyceride [Mass/Vol] 173 mg/dL Critically high <=[address] [facility] Comment on above: Performed By: #### B MP, LIPID, LIVER #### [facility] [address] [address] [address] Carlos Barlow VLDL CALC 34.6 mg/dL Normal [facility] Comment on above: Performed By: #### B MP, LIPID, LIVER #### [facility] [address] [place] [address] Dr. Carlos Barlow LIVER PROFILEon 03-10-2022 Albumin [Mass/Vol] 3.6 g/dL Normal 3.4-5.0 [facility] Comment on above: Performed By: #### B MP, LIPID, LIVER #### [facility] [address] [address] [address] Carlos Barlow Albumin/Globulin [Mass ratio] 1.1 {ratio} Normal [facility] Comment on above: Performed By: #### B MP, LIPID, LIVER #### [facility] [address] [address] [address] Carlos Barlow ALP [Catalytic activity/Vol] 92 U/L Normal 46-[address] [facility] Comment on above: Performed By: #### B MP, LIPID, LIVER #### [facility] [address] [address] [address] Carlos Barlow ALT [Catalytic activity/Vol] 20 U/L Normal 14-[address] [facility] Comment on above: Performed By: #### B MP, LIPID, LIVER #### [facility] [address] [address] [address] Carlos Barlow AST [Catalytic activity/Vol] 16 U/L Normal 15-[address] [facility] Comment on above: Performed By: #### B MP, LIPID, LIVER #### [facility] [address] [address] [address] Carlos Barlow BILI, CONJUGATED 0.1 mg/dL Normal 0.0-0.2 [facility] Comment on above: Performed By: #### B MP, LIPID, LIVER #### [facility] [address] [address] [address] Carlos Barlow Bilirubin [Mass/Vol] 0.3 mg/dL Normal 0.2-1.[address] [facility] Comment on above: Performed By: #### B MP, LIPID, LIVER #### [facility] [address] [address] [address] Carlos Barlow Globulin (S) [Mass/Vol] 3.4 g/dL Normal [facility] Comment on above: Performed By: #### B MP, LIPID, LIVER #### [facility] [address] [address] [address] Carlos Barlow Protein [Mass/Vol] 7.0 g/dL Normal 6.4-8.2 [facility] Comment on above: Performed By: #### B MP, LIPID, LIVER #### [facility] [address] [address] [address] Carlos Barlow PROF CHEM 8 (BAS METB)on Anion gap [Moles/Vol] 12.0 mmol/L Normal [facility] Comment on above: Performed By: #### B MP, LIPID, LIVER ####[facility] [address] [address]Dr. Carlos Barlow Calcium [Mass/Vol] 9.6 mg/dL Normal 8.5-10.1 [facility] Comment on above: Performed By: #### B MP, LIPID, LIVER ####[facility] [address] [address]Dr. Carlos Barlow Chloride [Moles/Vol] 105 mmol/L Normal 98-[address] [facility] Comment on above: Performed By: #### B MP, LIPID, LIVER ####[facility] [address] [id number]. Carlos Barlow CO2 [Moles/Vol] 26.5 mmol/L Normal 21.0-32.0 [facility] Comment on above: Performed By: #### B MP, LIPID, LIVER ####[facility] [address] [address]Dr. Carlos Barlow Creatinine [Mass/Vol] 0.89 mg/dL Normal 0.55-1.[address] [facility] Comment on above: Performed By: #### B MP, LIPID, LIVER ####[facility] [address] [address]Dr. Carlos Barlow EGFR-AF TONGAN >60 Normal >=60 [facility] Comment on above: Performed By: #### B MP, LIPID, LIVER ####[facility] [address] [address]Dr. Carlos Barlow EGFR-NON AF TONGAN >60 Normal >=[address] [facility] Comment on above: Performed By: #### B MP, LIPID, LIVER ####[facility] [address] [id number]. Carlos Barlow Glucose [Mass/Vol] 116 mg/dL Critically high 74-106 [facility] Comment on above: Performed By: #### B MP, LIPID, LIVER ####[facility] [address] [address]Dr. Carlos Barlow Potassium [Moles/Vol] 4.0 mmol/L Normal 3.5-5.[address] [facility] Comment on above: Performed By: #### B MP, LIPID, LIVER ####[facility] [address] [id number]. Carlos Barlow Sodium [Moles/Vol] 139 mmol/L Normal 136-145 [facility] Comment on above: Performed By: #### B MP, LIPID, LIVER ####[facility] [address] [id number]. Carlos Barlow Urea nitrogen [Mass/Vol] 24.0 mg/dL Critically high 7.0-18.[address] [facility] Comment on above: Performed By: #### B MP, LIPID, LIVER ####[facility] [address] [id number]. Carlos Barlow Urea nitrogen/Creatinine [Mass ratio] 26.9 mg/mg Normal [facility] Comment on above: Performed By: #### B MP, LIPID, LIVER ####[facility] [address] [id number]. Carlos Barlow CBC AUTO DIFFon 02-19-2022 BASO # 0.0 103/ul Normal 0.0-0.[address] [facility] Comment on above: Performed By: #### C BC ####[facility] [address] [place], [place] [address]Dr. Carlos Cain Basophils/100 WBC (Bld) 0.4 % Normal 0.2-2.[address] [facility] Comment on above: Performed By: #### C BC ####[facility] [address] [place], [place] [address]Dr. Carlos Barlow EO # 0.2 103/ul Normal 0.0-0.[address] [facility] Comment on above: Performed By: #### C BC ####[facility] [address] [place], [place] [address]Dr. Carlos Barlow Eosinophils/100 WBC (Bld) 4.1 % Normal 0.9-7.[address] [facility] Comment on above: Performed By: #### C BC ####[facility] [address] [place], [place] [address]Dr. Carlos Barlow Erythrocyte distribution width (RBC) [Ratio] 13.2 % Normal 11.0-15.[address] [facility] Comment on above: Performed By: #### C BC ####[facility] [address] [place], [place] [address]Dr. Carlos Barlow Hematocrit (Bld) [Volume fraction] 37.9 % Normal 36.0-48.[address] [facility] Comment on above: Performed By: #### C BC ####[facility] [address] [place], [place] [address]Dr. Carlos Barlow Hemoglobin (Bld) [Mass/Vol] 12.7 g/dL Normal 12.0-16.[address] [facility] Comment on above: Performed By: #### C BC ####[facility] [address] [address]DrVidal Cardonaulices Cain IG # 0.02 10e3/ul Normal 0.00-0.[address] [facility] Comment on above: Performed By: #### C BC ####[facility] [address] [address]DrVidal Barlow IG % 0.4 % Normal 0.0-0.[address] [facility] Comment on above: Performed By: #### C BC ####[facility] [address] [address]DrVidal Barlow LYMPH # 0.9 103/ul Critically low 1.2-3.8 [facility] Comment on above: Performed By: #### C BC ####[facility] [address] [address]DrVidal Barlow Lymphocytes/100 WBC (Bld) 17.7 % Critically low 20.5-60.[address] [facility] Comment on above: Performed By: #### C BC ####[facility] [address] [address]DrVidal Barlow MANUAL DIFF REQ NO Normal [facility] Comment on above: Performed By: #### C BC ####[facility] [address] [address]DrVidal Barlow MCH (RBC) [Entitic mass] 28.4 pg Normal 26.7-34.[address] [facility] Comment on above: Performed By: #### C BC ####[facility] [address] [id number] Barlow MCHC (RBC) [Mass/Vol] 33.5 g/dL Normal 29.9-35.[address] [facility] Comment on above: Performed By: #### C BC ####[facility] [address] [id number] Barlow MCV (RBC) [Entitic vol] 84.8 fL Normal 81.0-99.[address] [facility] Comment on above: Performed By: #### C BC ####[facility] [address] [address]Dr. Carlos Barlow MONO # 0.7 103/ul Normal 0.3-0.[address] [facility] Comment on above: Performed By: #### C BC ####[facility] [address] [address]Dr. Carlos Barlow Monocytes/100 WBC (Bld) 13.4 % Critically high 1.7-12.[address] [facility] Comment on above: Performed By: #### C BC ####[facility] [address] [place], [place] [address]Dr. Carlos Barlow NEUT # 3.3 103/ul Normal 1.4-6.[address] [facility] Comment on above: Performed By: #### C BC ####[facility] [address] [place], [place] [address]Dr. Carlos Barlow Neutrophils/100 WBC (Bld) 64.0 % Normal 43.0-75.[address] [facility] Comment on above: Performed By: #### C BC ####[facility] [address] [place], [place] [address]Dr. Carlos Barlow Platelet mean volume (Bld) [Entitic vol] 10.5 fL Normal 9.5-13.[address] [facility] Comment on above: Performed By: #### C BC ####[facility] [address] [place], [place] [address]Dr. Carlos Barlow PLT 252 103/ul Normal 150-[address] [facility] Comment on above: Performed By: #### C BC ####[facility] [address] [place], [place] [address]Dr. Carlos Barlow RBC 4.47 106/ul Normal 4.20-5.[address] [facility] Comment on above: Performed By: #### C BC ####[facility] [address] [place], [place] [address]Dr. Dulceulices Cain WBC 5.2 103/ul Normal 4.0-11.[address] [facility] Comment on above: Performed By: #### C BC ####[facility] [address] [place], [place] [address]Dr. Carlos Barlow LIPID PROFILEon 02-19-2022 CHOL-HDL RATIO NORM SEE BELOW Normal [facility] Comment on above: Result Comment: 3.3 - 4.4 LOW RISK 4.4 - 7.1 AVERAGE RISK 7.1 - 11.0 MODERATE RISK >11.0 HIGH RISK Performed By: #### C MP, LIPID #### [facility] [address] [place], [place] [address] Dr. Carlos Barlow Cholesterol [Mass/Vol] 241 mg/dL Critically high <=[address] [facility] Comment on above: Performed By: #### C MP, LIPID #### [facility] [address] [place], [place] [address] Dr. Carlos Barlow Cholesterol in HDL [Mass/Vol] 51 mg/dL Normal 40-[address] [facility] Comment on above: Performed By: #### C MP, LIPID #### [facility] [address] [address] [address] Carlos Barlow Cholesterol in LDL [Mass/Vol] 133.8 mg/dL Normal [facility] Comment on above: Performed By: #### C MP, LIPID #### [facility] [address] [place], [place] [address] Dr. Carlos Barlow Cholesterol.total/C holesterol in HDL [Mass ratio] 4.7 {ratio} Normal [facility] Comment on above: Performed By: #### C MP, LIPID #### [facility] [address] [place], [place] [address] Dr. Carlos Barlow HDL NORMAL > or = 60 mg/dl - LO W CARDIOVASCULAR RISK <40 mg/dl - HIGH CARDIOVASCULAR RISK Normal [facility] Comment on above: Performed By: #### C MP, LIPID #### [facility] [address] [place], [place] [address] Dr. Carlos Barlow LDL CALC NORMAL SEE BELOW Normal [facility] Comment on above: Result Comment: <100 mg/dl OPTIMAL 100 - 129 mg/dl NEAR OR ABOVE OPTIMAL 130 - 159 mg/dl BORDERLINE HIGH 160 - 189 mg/dl HIGH >190 mg/dl VERY HIGH Performed By: #### C MP, LIPID #### [facility] [address] [place] [address] Dr. Carlos Barlow Triglyceride [Mass/Vol] 281 mg/dL Critically high <=[address] [facility] Comment on above: Performed By: #### C MP, LIPID #### [facility] [address] [address] [address] Carlos Barlow VLDL CALC 56.2 mg/dL Normal [facility] Comment on above: Performed By: #### C MP, LIPID #### [facility] [address] [place] [address] Dr. Carlos Barlow PROF 14(COMP METB)on 022 Albumin [Mass/Vol] 3.3 g/dL Critically low 3.4-5.0 [facility] Comment on above: Performed By: #### C MP, LIPID #### [facility] [address] [place] [address] Dr. Carlos Barlow Albumin/Globulin [Mass ratio] 0.9 {ratio} Normal [facility] Comment on above: Performed By: #### C MP, LIPID #### [facility] [address] [place] [address] Dr. Carlos Barlow ALP [Catalytic activity/Vol] 96 U/L Normal 46-[address] [facility] Comment on above: Performed By: #### C MP, LIPID #### [facility] [address] [place] [address] Dr. Carlos Barlow ALT [Catalytic activity/Vol] 21 U/L Normal 14-[address] [facility] Comment on above: Performed By: #### C MP, LIPID #### [facility] [address] [place] [address] Dr. Carlos Barlow Anion gap [Moles/Vol] 7.2 mmol/L Normal [facility] Comment on above: Performed By: #### C MP, LIPID #### [facility] [address] [place] [address] Dr. Carlos Barlow AST [Catalytic activity/Vol] 14 U/L Critically low 15-[address] [facility] Comment on above: Performed By: #### C MP, LIPID #### [facility] [address] [address] [address] Carlos Barlow Bilirubin [Mass/Vol] 0.2 mg/dL Normal 0.2-1.[address] [facility] Comment on above: Performed By: #### C MP, LIPID #### [facility] [address] [address] [address] Carlos Barlow Calcium [Mass/Vol] 9.5 mg/dL Normal 8.5-10.1 [facility] Comment on above: Performed By: #### C MP, LIPID #### [facility] [address] [address] [address] Carlos Barlow Chloride [Moles/Vol] 103 mmol/L Normal 98-[address] [facility] Comment on above: Performed By: #### C MP, LIPID #### [facility] [address] [address] [address] Carlos Barlow CO2 [Moles/Vol] 32.1 mmol/L Critically high 21.0-32.[address] [facility] Comment on above: Performed By: #### C MP, LIPID #### [facility] [address] [place] [address] Dr. Carlos Barlow Creatinine [Mass/Vol] 0.80 mg/dL Normal 0.55-1.[address] [facility] Comment on above: Performed By: #### C MP, LIPID #### [facility] [address] [address] [address] Carlos Barlow EGFR-AF TONGAN >60 Normal >=60 [facility] Comment on above: Performed By: #### C MP, LIPID #### [facility] [address] [address] [address] Carlos Barlow EGFR-NON AF TONGAN >60 Normal >=[address] [facility] Comment on above: Performed By: #### C MP, LIPID #### [facility] [address] [place] [address] Dr. Carlos Barlow Globulin (S) [Mass/Vol] 3.5 g/dL Normal [facility] Comment on above: Performed By: #### C MP, LIPID #### [facility] [address] [address] [address] Carlos Barlow Glucose [Mass/Vol] 110 mg/dL Critically high 74-106 [facility] Comment on above: Performed By: #### C MP, LIPID #### [facility] [address] [address] [address] Carlos Barlow Potassium [Moles/Vol] 4.3 mmol/L Normal 3.5-5.[address] [facility] Comment on above: Performed By: #### C MP, LIPID #### [facility] [address] [address] [address] Carlos Barlow Protein [Mass/Vol] 6.8 g/dL Normal 6.4-8.2 [facility] Comment on above: Performed By: #### C MP, LIPID #### [facility] [address] [address] [address] Carlos Barlow Sodium [Moles/Vol] 138 mmol/L Normal 136-145 [facility] Comment on above: Performed By: #### C MP, LIPID #### [facility] [address] [address] [address] Carlos Barlow Urea nitrogen [Mass/Vol] 15.0 mg/dL Normal 7.0-18.[address] [facility] Comment on above: Performed By: #### C MP, LIPID #### [facility] [address] [address] [address] Carlos Barlow Urea nitrogen/Creatinine [Mass ratio] 18.8 mg/mg Normal [facility] Comment on above: Performed By: #### C MP, LIPID #### [facility] [address] [address] [address] Carlos Barlow Vital Signs Date Time Vital Sign Value Performing Clinician Faith felton 12-27-2024 09:28-0400 Body height 149.86 cm Jeffy Ramos MD Work Phone: [facility] 12-27-2024 09:28-0400 Body mass index (BMI) [Ratio] 35.3 kg/m2 Jeffy Ramos MD Work Phone: [facility] 12-27-2024 09:28-0400 Body weight 79.37 kg Jeffy Ramos MD Work Phone: [facility] 12-27-2024 09:28-0400 Diastolic blood pressure 60 mm[Hg] Jeffy Ramos MD Work Phone: [facility] 12-27-2024 09:28-0400 Heart rate 77 /min Jeffy Ramos MD Work Phone: [facility] 12-27-2024 09:28-0400 Systolic blood pressure 100 mm[Hg] Jeffy Ramos MD Work Phone: [facility] 10-11-2024 11:51-0400 Diastolic blood pressure 79 mm[Hg] Christopher Garrick DO Work Phone: [facility] 10-11-2024 11:51-0400 Heart rate 75 /min Christopher Garrick DO Work Phone: [facility] 10-11-2024 11:51-0400 Systolic blood pressure 136 mm[Hg] Christopher Garrick DO Work Phone: [facility] 09-13-2024 14:13-0400 Body height 149.9 cm Paula Benson PROJECT PRODUCTION ENGINEER Work Phone: [facility] 09-13-2024 14:13-0400 Body mass index (BMI) [Ratio] 35.14 kg/m2 Paula Benson PROJECT PRODUCTION ENGINEER Work Phone: [facility] 09-13-2024 14:13-0400 Body weight 78.93 kg Paula Benson PROJECT PRODUCTION ENGINEER Work Phone: [facility] 09-13-2024 14:13-0400 Diastolic blood pressure 78 mm[Hg] Paula Benson PROJECT PRODUCTION ENGINEER Work Phone: [facility] 09-13-2024 14:13-0400 Systolic blood pressure 132 mm[Hg] Paula Benson PROJECT PRODUCTION ENGINEER Work Phone: [facility] 08-16-2024 14:04-0500 Body height 149.86 cm [facility] 08-16-2024 14:04-0500 Body mass index (BMI) [Ratio] 35.1 kg/m2 [facility] 08-16-2024 14:04-0500 Body weight 78.92 kg [facility] 08-16-2024 14:04-0500 Diastolic blood pressure 73 mm[Hg] [facility] 08-16-2024 14:04-0500 Heart rate 64 /min [facility] 08-16-2024 14:04-0500 Systolic blood pressure 116 mm[Hg] [facility] 05-24-2024 16:04-0500 Body mass index (BMI) [Ratio] 38.17 kg/m2 Christopher Garrick DO Work Phone: [facility] 05-24-2024 16:04-0500 Body weight 85.73 kg Christopher Garrick DO Work Phone: [facility] 05-24-2024 16:04-0500 Diastolic blood pressure 76 mm[Hg] Christopher Garrick DO Work Phone: [facility] 05-24-2024 16:04-0500 Heart rate 67 /min Christopher Garrick DO Work Phone: [facility] 05-24-2024 16:04-0500 SaO2% (BldA) [Mass fraction] 97 % Christopher Garrick DO Work Phone: [facility] 05-24-2024 16:04-0500 Systolic blood pressure 128 mm[Hg] Christopher Garrick DO Work Phone: [facility] 05-03-2024 14:38-0500 Blood Pressure Location SARANYA WAYNE [facility] 05-03-2024 14:38-0500 Body temperature 98.6 [degF] SARANYA WAYNE [facility] 05-03-2024 14:38-0500 Diastolic blood pressure 67 mm[Hg] SARANYA WAYNE [facility] 05-03-2024 14:38-0500 Heart rate 73 /min SARANYA WAYEN [facility] 05-03-2024 14:38-0500 Respiratory rate 18 /min SARANYA WAYNE [facility] 05-03-2024 14:38-0500 Systolic blood pressure 123 mm[Hg] SARANYA WAYNE [facility] 04-19-2024 08:47-0500 Body mass index (BMI) [Ratio] 35.31 kg/m2 Christopher Garrick DO Work Phone: [facility] 04-19-2024 08:47-0500 Body weight 79.29 kg Christopher Garrick DO Work Phone: [facility] 04-19-2024 08:47-0500 Diastolic blood pressure 82 mm[Hg] Christopher Garrick DO Work Phone: [facility] 04-19-2024 08:47-0500 Heart rate 73 /min Christopher Garrick DO Work Phone: [facility] 04-19-2024 08:47-0500 SaO2% (BldA) [Mass fraction] 93 % Christopher Garrick DO Work Phone: [facility] 04-19-2024 08:47-0500 Systolic blood pressure 143 mm[Hg] Christopher Garrick DO Work Phone: [facility] 10-16-2023 10:31-0400 Blood Pressure Location Jean Paul URBAN [facility] 10-16-2023 10:31-0400 Diastolic blood pressure 78 mm[Hg] Jean Paul URBAN [facility] 10-16-2023 10:31-0400 Heart rate 80 /min Jean Paul URBAN [facility] 10-16-2023 10:31-0400 Respiratory rate 16 /min Jean Paul URBAN [facility] 10-16-2023 10:31-0400 Systolic blood pressure 134 mm[Hg] Jean Paul URBAN [facility] 07-18-2023 10:05-0500 Body height 149.86 cm Lissa Yamilka Other [employer] Other 07-18-2023 10:05-0500 Body mass index (BMI) [Ratio] 33.42 kg/m2 Lissa Yamilka Other [employer] Other 07-18-2023 10:05-0500 Body temperature 96.2 [degF] Lissa Yamilka Other [employer] Other 07-18-2023 10:05-0500 Body weight 75.07 kg Lissa Yamilka Other [employer] Other 07-18-2023 10:05-0500 Diastolic blood pressure 81 mm[Hg] Lissa Yamilka Other [employer] Other 07-18-2023 10:05-0500 Respiratory rate 18 /min Lissa Yamilka Other [employer] Other 07-18-2023 10:05-0500 SaO2% (BldA) [Mass fraction] 96 % Lissa Yamilka Other [employer] Other 07-18-2023 10:05-0500 Systolic blood pressure 181 mm[Hg] Lissa Prather Other [employer] Other 06-29-2023 11:17-0500 Blood Pressure Location Jean Paul URBAN [facility] 06-29-2023 11:17-0500 Diastolic blood pressure 78 mm[Hg] Jean Paul URBAN [facility] 06-29-2023 11:17-0500 Heart rate 69 /min Jean Paul URBAN [facility] 06-29-2023 11:17-0500 Respiratory rate 16 /min Jean Paul URBAN [facility] 06-29-2023 11:17-0500 Systolic blood pressure 134 mm[Hg] Jean Paul URBAN [facility] 06-03-2023 09:00-0500 Body height 149.86 cm Marine Watson Other [employer] [facility] [employer] Other 06-03-2023 09:00-0500 Body mass index (BMI) [Ratio] 33.93 kg/m2 Marine Watson Other [employer] Other 06-03-2023 09:00-0500 Body temperature 96.7 [degF] Marine Watson Other [employer] Other 06-03-2023 09:00-0500 Body weight 76.2 kg Marine Watson Other [employer] Other 06-03-2023 09:00-0500 Diastolic blood pressure 80 mm[Hg] Marine Watson Other [employer] Other 06-03-2023 09:00-0500 SaO2% (BldA) [Mass fraction] 96 % Marine Watson Other [employer] Other 06-03-2023 09:00-0500 Systolic blood pressure 142 mm[Hg] Marine Watson Other [employer] Other 05-05-2023 09:45-0500 Body height 149.86 cm Jeffy Ramos Other [employer] Other 05-05-2023 09:45-0500 Body mass index (BMI) [Ratio] 33.93 kg/m2 Jeffy Ramos Other [employer] Other 05-05-2023 09:45-0500 Body weight 76.2 kg Jeffy Ramos Other [employer] Other 05-05-2023 09:45-0500 Diastolic blood pressure 76 mm[Hg] Jeffy Ramos Other [employer] Other 05-05-2023 09:45-0500 Systolic blood pressure 142 mm[Hg] Jeffy Ramos Other [employer] Other 04-29-2023 09:45-0500 Body height 149.86 cm Gucci Meyers Other [employer] Other 04-29-2023 09:45-0500 Body mass index (BMI) [Ratio] 34.53 kg/m2 Gucci Meyers Other [employer] Other 04-29-2023 09:45-0500 Body temperature 97.4 [degF] Gucci Meyers Other [employer] Other 04-29-2023 09:45-0500 Body weight 77.57 kg Gucci Luigi Other [employer] Other 04-29-2023 09:45-0500 Diastolic blood pressure 62 mm[Hg] Gucci Luigi Other [employer] Other 04-29-2023 09:45-0500 SaO2% (BldA) [Mass fraction] 99 % Gucci Lowryjair Other [employer] Other 04-29-2023 09:45-0500 Systolic blood pressure 140 mm[Hg] Gucci Luigi Other [employer] Other 04-09-2023 09:15-0400 Body height 149.86 cm Jeffy Ramos Other [employer] Other 04-09-2023 09:15-0400 Body mass index (BMI) [Ratio] 34.53 kg/m2 Jeffy Ramos Other [employer] Other 04-09-2023 09:15-0400 Body weight 77.57 kg Jeffy Ramos Other [employer] Other 04-09-2023 09:15-0400 Diastolic blood pressure 78 mm[Hg] Jeffy Ramos Other [employer] Other 04-09-2023 09:15-0400 Systolic blood pressure 151 mm[Hg] eJffy Ramos Other [employer] Other 03-27-2023 10:30-0400 Body height 149.86 cm Jeffy Ramos Other [employer] Other 03-27-2023 10:30-0400 Body mass index (BMI) [Ratio] 35.75 kg/m2 Jeffy Ramos Other [employer] Other 03-27-2023 10:30-0400 Body weight 80.29 kg Jeffy Ramos Other [employer] Other 03-27-2023 10:30-0400 Diastolic blood pressure 81 mm[Hg] Jeffy Ramos Other [employer] Other 03-27-2023 10:30-0400 Systolic blood pressure 147 mm[Hg] Jeffy Ramos Other [employer] Other 03-11-2023 11:00-0400 Body height 149.86 cm Jeffy Ramos Other [employer] Other 03-11-2023 11:00-0400 Body mass index (BMI) [Ratio] 33.73 kg/m2 Jeffy Ramos Other [employer] Other 03-11-2023 11:00-0400 Body weight 75.75 kg Jeffy Ramos Other [employer] Other 03-11-2023 11:00-0400 Diastolic blood pressure 66 mm[Hg] Jeffy Ramos Other [employer] Other 03-11-2023 11:00-0400 Systolic blood pressure 109 mm[Hg] Jeffy Ramos Other [employer] Other 11-21-2022 10:45-0400 Body height 149.86 cm Jeffy Ramos Other [employer] Other 11-21-2022 10:45-0400 Body mass index (BMI) [Ratio] 33.12 kg/m2 Jeffy Ramos Other [employer] Other 11-21-2022 10:45-0400 Body weight 74.39 kg Jeffy Ramos Other [employer] Other 11-21-2022 10:45-0400 Diastolic blood pressure 70 mm[Hg] Jeffy Ramos Other [employer] Other 11-21-2022 10:45-0400 Systolic blood pressure 112 mm[Hg] Jeffy Ramos Other [employer] Other 10-14-2021 10:45-0400 Body height 149.86 cm Alex Nairley Other [employer] Other 10-14-2021 10:45-0400 Body mass index (BMI) [Ratio] 33.93 kg/m2 Alex Sol Other [employer] Other 10-14-2021 10:45-0400 Body weight 76.2 kg Alex Sol Other [employer] Other 09-23-2021 11:15-0400 Body height 149.86 cm Alex Sol Other [employer] Other 09-23-2021 11:15-0400 Body mass index (BMI) [Ratio] 33.12 kg/m2 Alex Sol Other [employer] Other 09-23-2021 11:15-0400 Body weight 74.39 kg Alex Slo Other [employer] Other Encounters Encounter Date Encounter Type Care Provider Facility Start: 12-27-2024 End: 12-27-2024 ambulatory Jeffy Ramos MD Work Phone: [facility] Work Phone: Start: 12-27-2024 End: 12-27-2024 Patient encounter procedure Jeffy Ramos MD -[facility] Work Phone: Start: 12-15-2024 End: 12-15-2024 ambulatory [facility] Start: 11-10-2024 Non-patient / Non-visit Cynthia giraldo [facility] Work Phone: Start: 11-10-2024 End: 11-10-2024 ambulatory [facility] Start: 10-18-2024 End: 10-18-2024 ambulatory [facility] Start: 10-11-2024 End: 10-11-2024 Bamboo flowsheet Mustapha Mccauley DO Work Phone: [facility] Start: 10-11-2024 End: 10-11-2024 Bamboo flowsheet Mustapha Mccauley DO Work Phone: [facility] Start: 10-11-2024 End: 10-11-2024 ambulatory MUSTAPHA MCCAULEY Not Available Start: 10-11-2024 End: 10-11-2024 Patient encounter procedure Mustapha Mccauley DO Work Phone: [facility] Comment on above: Lumbar radiculopathy (Primary Dx); Lumbar spondylosis; Lumbosacral radiculopathy; Paresthesia Start: 09-13-2024 End: 09-13-2024 Office outpatient visit 25 minutes Paula Benson PROJECT PRODUCTION ENGINEER Work Phone: [facility] Comment on above: Lumbar spondylosis ( Primary Dx); Lumbosacral radiculopathy; Paresthesia Start: 09-13-2024 End: 09-13-2024 ambulatory PAULA BENSON Not Available Start: 09-13-2024 End: 09-13-2024 Bamboo flowsheet Paula Benson PROJECT PRODUCTION ENGINEER Work Phone: [facility] Start: 09-13-2024 End: 09-13-2024 Bamboo flowsheet Paula Benson PROJECT PRODUCTION ENGINEER Work Phone: [facility] Start: 09-06-2024 End: 09-06-2024 Patient encounter procedure Jeffy Ramos MD Work Phone: [facility] [place] Work Phone: Start: 09-06-2024 End: 09-06-2024 ambulatory Jeffy Ramos MD Work Phone: [facility] Work Phone: Start: 08-16-2024 End: 08-16-2024 ambulatory [facility] Work Phone: Start: 08-16-2024 End: 08-16-2024 Patient encounter procedure [facility] Work Phone: Start: 05-24-2024 End: 05-24-2024 Office outpatient visit 25 minutes Mustapha Mccauley DO Work Phone: [facility] Comment on above: Weakness of both low er extremities (Primary Dx); Lumbosacral radiculopathy Start: 05-24-2024 End: 05-24-2024 ambulatory MUSTAPHA MCCAULEY Not Available Start: 05-24-2024 End: 05-24-2024 Bamboo flowsheet Tess Lopez PT Work Phone: [facility] Start: 05-24-2024 End: 05-24-2024 Bamboo flowsheet Tess Lopez PT Work Phone: [facility] Start: 05-24-2024 End: 05-24-2024 ambulatory Tess Lopez PT Work Phone: [facility] Comment on above: Paresthesia (Primary Dx); Radiculopathy, lumbar region Start: 05-18-2024 End: 05-18-2024 ambulatory Angela Kelbley [employer] [facility] Comment on above: Paresthesia (Primary Dx); Radiculopathy, lumbar region Start: 05-17-2024 End: 05-17-2024 Bamboo flowsheet Mustapha Mccauley DO Work Phone: [facility] Start: 05-17-2024 End: 05-17-2024 Bamboo flowsheet Mustapha Mccauley DO Work Phone: [facility] Start: 05-17-2024 End: 05-17-2024 Patient encounter procedure Mustapha Mccauley DO Work Phone: [facility] Comment on above: Lumbosacral radiculo bhumika (Primary Dx); Paresthesia Start: 05-17-2024 End: 05-17-2024 ambulatory MUSTAPHA MCCAULEY Not Available Start: 05-10-2024 End: 05-10-2024 ambulatory Angela Kelbley [employer] [facility] Comment on above: Paresthesia (Primary Dx); Radiculopathy, lumbar region Start: 05-05-2024 End: 05-05-2024 Bamboo flowsheet Angela Kelbley [facility] [employer] [facility] Start: 05-05-2024 End: 05-05-2024 Bamboo flowsheet Angela Kelbley [employer] [employer] [facility] Start: 05-05-2024 End: 05-05-2024 ambulatory Angela Kelbley [employer] [facility] Comment on above: Paresthesia (Primary Dx); Radiculopathy, lumbar region Start: 05-03-2024 End: 05-03-2024 Patient encounter procedure SARANYA WAYNE [facility] Start: 05-03-2024 End: 05-03-2024 Bamboo flowsheet Angela Kelbley [employer] [employer] Start: 05-03-2024 End: 05-03-2024 Bamboo flowsheet Angela Kelbley [employer] [employer] [facility] Start: 05-03-2024 End: 05-03-2024 ambulatory Angela Kelbley [employer] [facility] Comment on above: Paresthesia (Primary Dx); Radiculopathy, lumbar region Start: 04-28-2024 End: 04-28-2024 Bamboo flowsheet Tess Nakia Titielvin PT Work Phone: [facility] Start: 04-28-2024 End: 04-28-2024 Bamboo flowsheet Tess Lopez PT Work Phone: [facility] Start: 04-28-2024 End: 04-28-2024 ambulatory Tess Lopez PT Work Phone: [facility] Comment on above: Radiculopathy, lumba r region (Primary Dx); Paresthesia Start: 04-20-2024 End: 04-20-2024 Telephone encounter Sumaya Mcconnell PT [facility] Comment on above: PT Initial Eval (Tri ed to contact to schedule PT Eval for Paresthesia; had to lm requesting a call back.); Call Back (She called noting she is off / and ; I scheduled her PT eval for 04/28 w/ Tess Lopez, PT.) Start: 04-19-2024 End: 04-19-2024 Bamboo flowsheet Mustapha Mccauley DO Work Phone: [facility] Start: 04-19-2024 End: 04-19-2024 Bamboo flowsheet Mustapha Mccauley DO Work Phone: [facility] Start: 04-19-2024 End: 04-19-2024 Office outpatient new 45 minutes Mustapha Mccauley DO Work Phone: [facility] Comment on above: Paresthesia (Primary Dx) Start: 04-19-2024 End: 04-19-2024 ambulatory MUSTAPHA MCCAULEY Not Available Start: 02-16-2024 End: 02-16-2024 ambulatory AB [facility] Start: 10-16-2023 End: 10-16-2023 ambulatory Jean Paul URBAN Facility:[facility] Start: 10-16-2023 End: 10-16-2023 Patient encounter procedure Jean Paul URBAN [facility] Start: 07-28-2023 End: 07-28-2023 ambulatory Jean Paul URBAN [facility] Start: 07-28-2023 End: 07-28-2023 Patient encounter procedure Jean Paul URBAN [facility] Start: 07-18-2023 End: 07-18-2023 ambulatory Lissa Prather Other [employer] Other Start: 07-18-2023 Office outpatient vi sit 15 minutes Lissa Yamilka [facility] Start: 06-29-2023 End: 06-29-2023 ambulatory Jean Paul URBAN Facility:[facility] Start: 06-29-2023 End: 06-29-2023 Patient encounter procedure Jean Paul URBAN [facility] Start: 06-03-2023 End: 06-03-2023 Patient encounter procedure Marine Shirley [facility] V[facility] Start: 06-03-2023 End: 06-03-2023 ambulatory NON STAFF [employer] Other Start: 05-20-2023 End: 05-20-2023 ambulatory Jeffy Ramos Other [employer] Other Start: 05-20-2023 Telephone encounter Jeffy Ramos [facility] Start: 05-05-2023 End: 05-05-2023 ambulatory Jeffy Ramos Other [employer] Other Start: 05-05-2023 Office outpatient vi sit 15 minutes Jeffy Ramos [facility] Start: 04-29-2023 End: 04-29-2023 ambulatory Gucci Meyers Other [employer] Other Start: 04-29-2023 Office outpatient ne w 30 minutes Gucci Meyers [facility] Start: 04-29-2023 Telephone encounter Gucci Terry [facility] [employer] Start: 04-21-2023 End: 04-21-2023 ambulatory Alex Horton Other [employer] Other Start: 04-21-2023 Telephone encounter Alex Horton [facility] Start: 04-09-2023 End: 04-09-2023 ambulatory Jeffy Ramos Other [employer] Other Start: 04-09-2023 Office outpatient vi sit 15 minutes Jeffy Ramos [facility] Start: 03-30-2023 End: 03-30-2023 ambulatory Jeffy Ramos Other [employer] Other Start: 03-30-2023 Telephone encounter Jeffy Ramos [facility] Start: 03-27-2023 End: 03-27-2023 ambulatory Jeffy Ramos Other [employer] Other Start: 03-27-2023 Office outpatient vi sit 15 minutes Jeffy Ramos [facility] Start: 03-24-2023 End: 03-24-2023 ambulatory Jeffy Ramos Other [employer] Other Start: 03-24-2023 Telephone encounter Jeffy Ramos [facility] Start: 03-11-2023 End: 03-11-2023 ambulatory Jeffy Ramos Other [employer] Other Start: 03-11-2023 Office outpatient vi sit 15 minutes Jeffy Ramos [facility] Start: 02-23-2023 End: 02-23-2023 ambulatory NON STAFF [facility] Work Phone: Start: 02-23-2023 End: 02-23-2023 Patient encounter procedure [facility] Start: 02-03-2023 End: 02-03-2023 ambulatory Jeffy Ramos Other [employer] Other Start: 02-03-2023 Telephone encounter Jeffy Ramos [facility] Start: 11-21-2022 End: 11-21-2022 ambulatory Jeffy Ramos Other [employer] Other Start: 11-21-2022 Office outpatient vi sit 15 minutes Jeffy Ramos [facility] Start: 09-26-2022 End: 09-26-2022 ambulatory Jeffy Ramos Other [employer] Other Start: 09-26-2022 Telephone encounter Jeffy Ramos [facility] Start: 09-24-2022 Nursing evaluation o f patient and report Jeffy Ramos [facility] Start: 09-24-2022 End: 09-25-[address] JEFFY RAMOS [facility] Work Phone: Start: 09-24-2022 End: 09-24-2022 Departed Referred MD Jeffy Ramos Work Phone: [facility] [place] Work Phone: Start: 07-07-2022 (Televisit) Televisit Jeffy De La Cruz [facility] Start: 07-07-2022 End: 07-07-2022 ambulatory Jeffy Ramos Other [email or web address] Other Start: 07-05-2022 End: 07-06-[address] DOCTOR MCCULLOUGH Facility:H1 Start: 05-13-2022 Adult health examination Zaina Ramos Other [email or web address] Other Start: 05-05-2022 End: 05-05-[address] JEFFY RAMOS Facility:[facility]1 Start: 04-02-2022 End: 04-02-2022 ambulatory Alex Horton Other [email or web address] Other Start: 04-02-2022 Office outpatient vi sit 15 minutes Alex Horton [facility] Start: 03-31-2022 End: 04-01-[address] JEFFY RAMOS Facility:[facility]1 Start: 03-10-2022 End: 03-11-[address] CYNTHIA TEMPLE Facility:[facility]1 Start: 02-19-2022 End: 02-20-2022 ambulatory ANGELA BRAND Facility:[facility]1 Start: 11-13-2021 End: 11-13-2021 ambulatory Alex Horton Other [email or web address] Other Start: 11-13-2021 Telephone encounter Alex Horton [facility] Start: 10-28-2021 End: 10-28-2021 ambulatory Alex Horton Other [email or web address] Other Start: 10-28-2021 Telephone encounter Alex Horton [facility] Start: 10-23-2021 End: 10-23-2021 ambulatory Alex Horton Other [email or web address] Other Start: 10-23-2021 Telephone encounter Alex Horton [facility] Start: 10-14-2021 End: 10-14-2021 ambulatory Alex Horton Other [email or web address] Other Start: 10-14-2021 Office outpatient vi sit 25 minutes Alex Horton [facility] Start: 09-23-2021 End: 09-23-2021 ambulatory Alex Horton Other [email or web address] Other Start: 09-23-2021 Office outpatient vi sit 15 minutes Alex Horton [facility] Procedures Date Procedure Procedure Detail Performing Clinician Start: 09-06-2024 MR lumbar spine wo con Jeffy Ramos MD Work Phone: Start: 09-06-2024 XR pre/post mri xray Scott Ramos MD Work Phone: Start: 05-17-2024 End: 05-17-2024 Needle emg ea extremty w/paraspinl area complete Mustapha Mccauley DO Work Phone: Start: 07-28-2023 Cystourethroscopy wi th dilation of urethral stricture Jean Paul URBAN Start: 07-28-2023 Urodynamic studies Patr marshall URBAN Start: 06-03-2023 Duplex scan of lower limb veins Start: 02-23-2023 X-ray of left knee Start: 09-13-2018 Screening for malign ant neoplasm of cervix Jeffy Ramos Other Start: 04-10-2015 Screening mammography Dalila Ramos Other Start: 05-16-2014 History and 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, administrative Jeffy Ramos Other Appendectomy Jean Paul URBAN Colonoscopy Jean Paul URBAN History of operative procedure on knee S/P arthroscopic knee surgery MD Jeffy Ramos Work Phone: Comment on above: Problem List clean-u p per request of Phys. EHR Cmte Hysterectomy Jean Paul URBAN Screening for malign ant neoplasm of breast Jeffy Ramos Other Plan of Treatment Date Care Activity Detail Author Start: 01-31-2025 End: 01-31-2025 Patient encounter procedure 01/31/2025 1:45 PM EDT Office Visit [facility] [place] [address] [place] [address] Mustapha Mccauley DO [address] [place] [address] [facility] [place] Start: 01-23-2025 End: 01-23-2025 Patient encounter procedure 01/23/2025 9:00 AM EDT Office Visit [facility] [place] [address] [place] [address] Paula Benson NP [address] [place] [phone] [facility] [place] Start: 10-11-2024 End: 09-13-2025 Nerve Block Nerve Block Procedures Routine Lumbar spondylosis Lumbosacral radiculopathy Paresthesia Expected: 10/11/2024 (Approximate), Expires: 09/13/2025 [facility] Work Phone: Comment on above: Expected: 10/11/2024 (Approximate), Expires: 09/13/2025 Start: 10-11-2024 End: 10-11-2024 Patient encounter procedure 10/11/2024 11:45 AM EDT Office Visit [facility] [place] [address] [place] [address] Mustapha Mccauley DO [address] [place], [place] [id number] [facility] [place] Start: 09-13-2024 End: 09-13-2024 Patient encounter procedure 09/13/2024 2:20 PM EDT Office Visit [facility] [place] [address] [place] [address] Paula Benson NP [address] [place] [phone] Arrived [facility] [place] Comment on above: Arrived Start: 06-21-2024 End: 06-21-2024 Patient encounter procedure 06/21/2024 12:30 PM EST Office Visit [facility] [place] [address] [facility] [place] [address] Mustapha Mccauley DO [address] [place] [address] [facility] [place] [facility] Start: 05-24-2024 End: 05-24-2024 Patient encounter procedure 05/24/2024 4:15 PM EST Office Visit [facility] [place] [address] [facility] [place] [address] Mustapha Mccauley, DO [address] [place] [address] [facility] [place] [facility] Start: 05-24-2024 End: 05-24-2025 MR Lumbar spine WO contrast MR lumbar spine wo contrast Imaging Routine Weakness of both lower extremities Expected: 05/24/2024, Expires: 05/24/2025 [facility] Comment on above: Expected: 05/24/2024 , Expires: 05/24/2025 Start: 05-24-2024 End: 05-24-2025 Nerve Block Nerve Block Procedures Routine Lumbosacral radiculopathy Expected: 05/24/2024 (Approximate), Expires: 05/24/2025 [facility] Work Phone: Comment on above: Expected: 05/24/2024 (Approximate), Expires: 05/24/2025 Start: 05-24-2024 End: 05-24-2024 ambulatory 05/24/2024 9:30 AM EST Treatment [facility] [address] [place] [address] Tess Lopez, PT [address] [place] [address] [facility] Start: 05-19-2024 End: 05-19-2024 ambulatory 05/19/2024 11:00 AM EST Treatment [facility] [address] [place] [address] Tess Lopez, PT [address] [place] [address] [facility] Start: 05-18-2024 End: 05-18-2024 ambulatory 05/18/2024 9:30 AM EST Treatment [facility] [address] [place] [address] Angela Looney, BUCK [facility] Start: 05-17-2024 End: 05-17-2024 Patient encounter procedure [facility] [place] [facility] Comment on above: Arrived Start: 05-17-2024 End: 05-17-2024 ambulatory 05/17/2024 10:30 AM EST Treatment [facility] [address] [place] [address] Marya Looneyissa, CRANE RIGGER [facility] Start: 05-10-2024 End: 05-10-2024 ambulatory 05/10/2024 11:00 AM EST Treatment [facility] [address] [place] [address] Marya Looneyissa, CRANE RIGGER [facility] Start: 05-05-2024 End: 05-05-2024 ambulatory [facility] Comment on above: Arrived Start: 05-03-2024 End: 05-03-2024 ambulatory 05/03/2024 11:00 AM EST Treatment [facility] [address] [place] [address] Marya Looneyissa, CRANE RIGGER Arrived [facility] Comment on above: Arrived Start: 04-28-2024 End: 04-28-2024 ambulatory 04/28/2024 2:00 PM EST Evaluation [facility] [address] [place] [address] Tess Lopez, PT [address] [place] [address] [facility] Start: 04-28-2024 End: 04-28-2024 Patient encounter procedure 04/28/2024 8:30 AM EST Procedure Visit [facility] [place] [facility] [address] [place] [phone] Mustapha Mccauley DO [address] [place] [address] [facility] [place] [facility] Start: 04-19-2024 End: 04-19-2025 EMG 2 Extremities EMG 2 Extremities Neurology Routine Paresthesia Expected: 04/19/2024, Expires: 04/19/2025 [facility] Work Phone: Comment on above: Expected: 04/19/2024 , Expires: 04/19/2025 Start: 04-19-2024 End: 04-19-2024 Patient encounter procedure 04/19/2024 9:00 AM EST Office Visit [facility] [address] [facility] [place] [phone] Mustapha Mccauley, DO [address] [place] [address] Arrived [facility] Comment on above: Arrived Start: 09-24-2022 Bacteria identified in Urine by Culture Urine Culture [facility] Start: 01-28-2021 Pneumococcal Vaccine : 65+ Years (1 of 1 - PCV) Pneumococcal Vaccine: 65+ Years (1 of 1 - PCV) [facility] Start: 01-28-2006 Pneumococcal Vaccine : 65+ Years (1 of 1 - PCV) Pneumococcal Vaccine: 65+ Years (1 of 1 - PCV) [facility] Start: 1996 Screening for malign ant neoplasm of breast Mammogram [facility] Start: 1956 Screening for malign ant neoplasm of colon [facility] Patient Education Low back pain in adults [facility] Work Phone: XR Hip - right 2 Views [facility] XR Lumbar spine 2 or 3 Views [facility] Immunizations Immunization Date Immunization Notes Care Provider Fa cility 04-05-2024 influenza virus vaccine, unspecified formulation SARANYA WAYNE [facility] 04-05-2024 influenza, high dose seasonal, preservative-free [facility] 04-08-2023 influenza virus vaccine, unspecified formulation Jean Paul URBAN [facility] 07-23-2022 Prevnar 20 Jeffy Ramos Other [facility] 03-22-2022 COVID-19 Vaccine Moderna - Documentation Purposes Only Jeffy Ramos Other [facility] 03-22-2022 influenza virus vaccine, split virus (incl. purified surface antigen) Jeffy Ramos Other [facility] [employer] Other 03-22-2022 influenza virus vaccine, unspecified formulation Jean Paul URBAN [facility] 03-22-2022 SARS-CoV-2 (COVID-19 ) [id number] Jean Paul URBAN [facility] 06-05-2021 pneumococcal conjuga te vaccine, 13 valent Jeffy Ramos Other [facility] 05-23-2021 Do not use COVID-19 Pfizer 2 dose Alex Sol Other [facility] 04-01-2021 influenza virus vaccine, unspecified formulation Jean Paul URBAN [facility] 09-28-2020 COVID-19 mRNA, Comirnaty (Pfizer) MD Jeffy Ramos Work Phone: [facility] 09-18-2020 Do not use COVID-19 Pfizer 2 dose Alex Sol Other [facility] 08-28-2020 Do not use COVID-19 Pfizer 2 dose Alex Sol Other [facility] 02-29-2020 influenza virus vaccine, unspecified formulation Jean Paul URBAN [facility] 03-25-2019 influenza virus vaccine, unspecified formulation Jean Paul URBAN [facility] 06-28-2018 zoster vaccine recombinant Jean Paul URBAN [facility] 03-30-2018 zoster vaccine recombinant Jean Paul URBAN [facility] 03-09-2018 influenza virus vaccine, split virus (incl. purified surface antigen) Jeffy Ramos Other [email or web address] Other 03-09-2018 influenza virus vaccine, unspecified formulation Jean Paul URBAN [facility] 02-29-2016 tetanus and diphther ia toxoids, adsorbed, preservative free, for adult use (5 Lf of tetanus toxoid and 2 Lf of diphtheria toxoid) Jeffy Ramos Other [facility] 04-09-2015 influenza virus vaccine, unspecified formulation Jean Paul URBAN [facility] 04-09-2015 tetanus and diphther ia toxoids, adsorbed, preservative free, for adult use (5 Lf of tetanus toxoid and 2 Lf of diphtheria toxoid) Jeffy Ramos Other [facility] Payers Date Payer Category Payer Self-pay [id number] 2021 Medicare (Managed Care) [facility] [id number] 2020 Unknown [id number] 1956 Unknown [id number] 2.16.840.1.451442.3.579. 2.593 1956 Unknown [id number] 2.16.840.1.484789.3.579. 2.593 1956 Unknown [id number] 2.16.840.1.681240.3.579. 2.593 1956 Unknown [id number] 2.16.840.1.384303.3.579. 2.593 1956 Unknown [id number] 2..840.1.594038.3.579. 2.593 1956 Unknown [id number] 2.840.1.368218.3.579. 2.59 1956 Unknown [id number] 2..840.1.764640.3.579. 2.727 1956 Unknown [id number] 2.840.1.356169.3.579. 2.727 1956 Unknown [id number] 2.840.1.319138.3.579. 2.727 1956 Unknown [id number] 2.840.1.184858.3.579. 2.727 1956 Unknown [id number] 2.840.1.457748.3.579. 2.125 1956 Unknown [id number] 2.840.1.652143.3.579. 2.125 1956 Unknown [id number] 2.840.1.004474.3.579. 2.125 1956 Unknown [id number] 2..840.1.601941.3.579. 2.125 1956 Unknown [id number] 2.840.1.579846.3.579. 2.125 1956 Unknown [id number] 2.840.1.610508.3.579. 2.125 1956 Unknown [id number] 2.16.840.1.369161.3.579. 2.9 1956 Unknown [id number] 2.16.840.1.072335.3.579. 2.9 1956 Unknown [id number] 2.16.840.1.692520.3.579. 2.1258 1956 Unknown [id number] 2.16.840.1.605108.3.579. 2.9 1956 Unknown [id number] 2.16.840.1.388778.3.579. 2.1258 Unknown [facility] [id number] Unknown [id number] 2.16.840.1.238693.3.579. 2.531 Social History Date Type Detail Facility Unknown if ever smoked [email or web address] Other Sex Assigned At [facility] Start: 10-22-2021 End: 04-15-2024 Tobacco smoking status FLIS Never smoked tobacco (finding) [facility] Start: 1955 Sex Assigned At Female F [facility] Tobacco smoking status Never [facility] Tobacco smoking status [facility] Tobacco smoking consumption unknown [facility] Start: 03-23-2024 Gender identity Identifies as female gender (finding) [facility] Start: 08-16-2024 End: 09-07-2024 Sex Female (finding) [facility] Functional Status Date Assessment Result Facility 05-03-2024 Functional Status N/A [facility] 10-16-2023 Functional Status N/A [facility] 07-28-2023 Functional Status N/A [facility] 06-29-2023 Functional Status N/A [facility] Clinical Notes 09-23-2021 to 12-15-2024 Mustapha Mccauley DO - 10/11/2024 11:45 AM Ketan Benson NP - 09/13/2024 2:20 PM EDT Note Date & Type Note Facility 12-15-2024 Note [facility] Cardiology Clinic Note Chief Complaint: Patient here for 6 week follow up medication change. Hydrochlorothiazide was stopped and carvedilol was decreased to 12.5mg bid. Then patient had some LE edema and weight gain so she restarted hydrochlorothiazide. C/o diaphoresis. Denies chest pain and SOB. LE edema has resolved since restarting hydrochlorothiazide. HPI: Pebbles Johnson is a 69 y.o. female with hypertension and hyperlipidemia seen in follow-up. Last seen by Dr. Temple in 02/2022 for BP management. BP is [...] paroxysmal dyspnea. No significant lower extremity edema. Update 01/11/2025: Doing well. Blood pressure is better. No significant lightheadedness or dizziness. Has lower Back pain for which she receives shots for pain control Cardiology ROS: Review of Systems Constitutional: Positive for diaphoresis. All other systems reviewed and are negative. [...] the morning., Disp: , Rfl: carvedilol (Coreg) 12.5 mg tablet, Take 1 tablet (12.5 mg) by mouth with breakfast and with evening meal., Disp: 180 tablet, Rfl: 3 carvedilol (Coreg) 25 mg tablet, Take 1 [...] tablet, Rfl: 11 Last Recorded Vitals BP (more content not included)... [facility] 11-10-2024 Note [facility] Cardiology Clinic Note Chief Complaint: Patient here for low blood pressure which is causing her to be lightheaded, walking sideways and dizzy. Dizziness occurs with standing, sitting, bending. Patient states her blood pressures at home have 76/42 , 77/40, 91/53 and 104/52. HPI: Pebbles Johnson is a 69 y.o. female with hypertension and hyperlipidemia seen in follow-up. Last seen by Dr. Temple in 02/2022 for BP management. BP is [...] 63 Ht 1.499 m (4' 11 ) Wt 80.3 kg (177 lb) SpO2 97% BMI 35.75 kg/m??? Physical Examination: GENERAL: alert and oriented x3, well developed, in no acute distress. HEAD: atraumatic, normocephalic. EYES: ALBINA, EOMI. NECK: trachea midline, no JVD present, no carotid bruits present. CARDIAC: S1, S2 (more content not included)... [facility] 10-18-2024 Note [facility] Cardiology Clinic Note Chief Complaint: Patient here for 8 month follow up . Patient states she feel pretty good and has no cardiac complaints at this time. HPI: Pebbles Johnson is a 69 y.o. female with hypertension and hyperlipidemia seen in follow-up. Last seen by Dr. Temple in 02/2022 for BP management. BP is [...] consistently below 140 systolic and 85 diastolic Cardiology ROS: Review of Systems Cardiovascular: Negative [...] antibiotics), and Sulfur Medications Current Outpatient Medications: gabapentin (Neurontin) 300 mg capsule, Take 300 mg by mouth 3 times a day., Disp: , Rfl: aspirin 81 mg EC tablet, in the [...] on 02/16/2024), Disp: 90 tablet, Rfl: 3 hydroCHLOROthiazide (HYDRODiuril) 25 mg tablet, Take 1 tablet (25 mg) by mouth in the morning., Disp: 90 tablet, Rfl: 3 lisinopril 40 [...] tablet, Rfl: 11 Last Recorded Vitals BP 121/68 (BP Location: Left arm, Patient Position: Sitting) Pulse 68 Ht 1.499 m (4' 11 ) Wt 80.3 kg (177 lb) SpO2 98% BMI 35.75 kg/m??? Physical Examination: GENERAL: alert and oriented [...] sodium 138, potassium 4.3, BUN 15, serum (more content not included)... [facility] 10-11-2024 History of Present illness Narrative Images from the original note were not included. Reason for Appointment: Epidural HERE FOR FIRST EPI Patient ID: Pebbles Johnson is a 69 y.o. female who presents for lumbar radiculopathy Current Medications: has a current medication list which includes the following prescription(s): aspirin, carvedilol, ezetimibe, gabapentin, hydrochlorothiazide, lisinopril, nitroglycerin, pantoprazole, and rosuvastatin. Vitals: Visit Vitals BP 136/79 (BP Location: Left arm, Patient Position: Sitting, BP Cuff Size: Adult) Pulse 75 Allergies: Allergies Allergen Reactions Sulfa Antibiotics Rash EPIDURAL NOTE: Right L5 Epidural Injection Fluoroscopic needle guidance REASON FOR PROCEDURE: Lumbar radiculopathy and radicular pain ALLERGIES: See allergy list above. Patient specifically denies contrast and shellfish allergy. MEDICATIONS INJECTED: 1ml of 0.25% Bupivacaine mixed with Dexamethasone (10mg/ml) 10mg total. LOCAL ANESTHETIC INJECTED: None CONTRAST: Omnipaque 300mgI/mL, 1 mL per each procedure site SEDATION MEDICATIONS: None TOPICAL ANESTHETIC: Ethyl Chloride spray ESTIMATED BLOOD LOSS: None COMPLICATIONS: None TECHNIQUE: If applicable, blood thinning medications were held according to SIS and ELIAN guidelines. Time-out was taken to identify the correct patient, procedure, and side prior to starting the procedure. Lying in a prone position, the patient was prepped in the usual aseptic fashion. The appropriate site was identified under fluoroscopy. A 22 gauge needle was then introduced and the Right L5 foramen was negotiated under direct intermittent fluoroscopy. Lateral view was obtained to confirm needle placement and depth. Negative aspiration confirmed no blood and no CSF return. In the AP view 1 ml of Omnipaque 300mgI/mL contrast was injected and showed a good spread of the dye along the corresponding nerve root and through the foramen into the axillary recess of the epidural space without any vascular uptake. Then the 1ml of 0.25% Bupivacaine mixed with 1ml of Dexamethasone 10mg/ml was injected without adverse effect. The procedure was completed without complications and was tolerated well. The patient was monitored after the procedure. The patient (or responsible green party) was given post-procedure and discharge instructions to follow at home. The patient was discharged in stable condition. A follow-up appointment was made. The patient was instructed to avoid activities that would normally worsen the pain. Pre-procedure pain score: 5-6 /10 Locker Room Clerk: RT Neville(R) kVp: 103 Time (sec): 10 mA: 3.0 Patient ID: Pebbles Johnson is a 69 y.o. female. Nerve Block Date/Time: 10/11/2024 12:34 PM Performed by: Mustapha Mccauley DO Authorized by: Mustapha Mccauley DO Consent: Consent obtained: Written Consent given by: Patient [place] protocol: Procedure explained and questions answered to patient or proxy's satisfaction: yes Patient identity confirmed: Verbally with patient Location: Body area: Trunk Trunk nerve: Lumbar Procedure details: Guidance: fluoroscopy Steroid injected: Dexamethasone Post-procedure details: Procedure completion: Tolerated documented in this encounter [facility] 09-13-2024 History of Present illness Narrative Chief Complaint Patient presents with Back Pain Subjective Pebbles Johnson is a 69 y.o. female. History of Present Illness The patient presents today for follow-up. She had an MRI of the lumbar spine completed for review. BACK PAIN - The patient reports right-sided low back pain - This is chronic and intermittent - Severity is mild - It does not radiate to the buttock or lower extremities - She denies lower extremity weakness - She denies incontinence or bowel or bladder dysfunction - She denies any recent falls - She states it hurts to lift her right leg up to swing it into her car - She does notice intermittent numbness and tingling in the bilateral lower extremities which have lessened in frequency - She completed physical therapy in late 2023, and this was helpful - She continues to perform at home physical therapy exercises - 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 Review of Systems Constitutional: Negative for appetite change, chills, fatigue, fever and unexpected weight change. HENT: Negative for trouble swallowing and voice change. Eyes: Negative for visual change, double vision or loss of vision Respiratory: Negative for cough, shortness of breath and wheezing. Cardiovascular: Negative for chest pain and palpitations. Gastrointestinal: Negative for abdominal pain, blood in stool, nausea and vomiting. Musculoskeletal: Positive for arthralgias and back pain. Negative for gait problem and myalgias. Neurological: Positive for numbness. Negative for dizziness, tremors, seizures, syncope, facial asymmetry, speech difficulty, weakness, light-headedness and headaches. Psychiatric/Behavioral: Negative for confusion, hallucinations and suicidal ideas. The patient is not nervous/anxious. Home Medication List aspirin 81 MG EC tablet carvedilol 25 MG tablet; Commonly known as: Coreg ezetimibe 10 MG tablet; Commonly known as: Zetia gabapentin 300 MG capsule; Commonly known as: Neurontin; Take 1 capsule (300 mg) by mouth in the morning and 1 capsule (300 mg) in the evening and 1 capsule (300 mg) before bedtime. hydroCHLOROthiazide 25 MG tablet; Commonly known as: HYDRODiuril lisinopril 2.5 MG tablet nitroglycerin 0.3 MG SL tablet; Commonly known as: Nitrostat pantoprazole 20 MG EC tablet; Commonly known as: ProtoNix rosuvastatin 40 MG tablet; Commonly known as: Crestor Past Medical History: Diagnosis Date Bipolar 1 disorder (CMS/HCC) Chest pain Essential hypertension (CMS/HCC) Hyperlipidemia (CMS/HCC) Lumbosacral radiculopathy Mixed incontinence Urethral stricture Past Surgical History: Procedure Laterality Date APPENDECTOMY SECTION, CLASSIC HEMORRHOID SURGERY HYSTERECTOMY No family history on file. Social History Tobacco Use Smoking status: Not on file Smokeless tobacco: Not on file Substance Use Topics Alcohol use: Not on file Allergies: Sulfa antibiotics Vitals: 09/13/24 1413 BP: 132/78 Body mass index is 35.14 kg/m . weight: 174 lb Neurologic exam: Mental status and general appearance: Awake and alert with unlabored respirations. Oriented to person, place, and time. Recent and remote memory are intact. Speech is clear and fluent without aphasia. Speech is non-dysarthric. Attention and concentration are normal. Fund of knowledge is appropriate for level of education. Pleasant. Cranial nerves: CN II: Visual acuity is normal. Visual quevedo full to confrontation. CN III, IV, : Pupils are equal, round, and reactive to light. Extraocular movements intact. No ptosis present. CN V: Facial sensation is normal. CN VII: Full and symmetric facial movement. CN VIII: Hearing is normal to finger rub bilaterally. CN IX and X: Palate elevates symmetrically. CN XI: Shoulder shrug is normal bilaterally. CN XII: Tongue is midline without atrophy or fasciculation. Motor: RUE strength deltoid , biceps , triceps , wrist extensors , wrist flexor , and vocational coordinator strength 5/5. LUE strength deltoid , biceps , triceps , wrist extensors , wrist flexor , and vocational coordinator strength 5/5. RLE strength iliopsoas, quadriceps, tibialis anterior, and plantar flexion strength 5/5. LLE strength iliopsoas, quadriceps, tibialis anterior, and plantar flexion strength 5/5. Tone and bulk are normal. Sensory: Sensation is intact to light touch throughout all four extremities. Sensation is intact to temperature in all extremities. Reflexes: RUE biceps reflex 2+ , brachioradialis reflex 2+. LUE biceps reflex 2+ , brachioradialis reflex 2+. RLE knee reflex 1+. LLE knee reflex 1+. Crockett's sign negative. Coordination: Krcfsj-[id number]-nvqt testing normal. Rapid alternating movements are normal. Gait: Appears mildly antalgic. Review and summary of old records: MRI of the lumbar spine with and without contrast at [facility] on 09/06/2024: 2 mm anterolisthesis of L4-L5. This measures 5 mm on the standing x-rays. Conus medullaris terminates normally at mid L1. At L1-L2, broad-based disc bulge with left subarticular to foraminal zone protrusion. This narrows the left subarticular zone and left foraminal zone. Mild facet arthropathy. Moderate left neural foraminal narrowing. Please correlate with possible left L1 and L2 radiculopathy. At L2-L3, circumferential disc bulge with facet arthropathy. Mild neural foraminal narrowing and minor central canal narrowing. At L3-L4, broad-based disc bulge with [id number] facet arthropathy. Mild to moderate central canal stenosis. Mild to moderate right neural foraminal narrowing and moderate left neural foraminal narrowing. At L4-L5, circumferential disc bulge with moderate to severe facet arthropathy. There is crowding of both subarticular zones, correlate with L5 radiculopathy. Mild central canal narrowing. Mild to moderate neural foraminal narrowing. At L5-S1, moderate to severe right and severe left facet arthropathy. Mild foraminal narrowing. No significant central stenosis or focal disc protrusion. EMG of the bilateral lower extremities at [facility] on 05/17/2024: Bilateral S1 radiculopathies which are mild in degree electrically. No evidence of polyneuropathy. Labs on 03/15/2024: Hemoglobin A1c, vitamin B12, and thyroid stimulating hormone within normal limits. Assessment/Plan Diagnoses and all orders for this visit: Lumbar spondylosis Lumbosacral radiculopathy Paresthesia Ms. Johnson is a 69-year-old female who I believe has lumbosacral radiculopathy. This is likely secondary to disc bulges and degenerative changes in the lumbar spine which contribute to neural foraminal narrowing on MRI. The patient reports chronic right-sided low back pain which is non-radicular but also has intermittent numbness/paresthesias in the bilateral lower extremities (unclear exactly where). She has no subjective weakness and no objective weakness on clinical exam. BLE EMG on 05/17/2024 identified bilateral S1 radiculopathies without evidence of polyneuropathy. MRI of the lumbar spine on 09/06/2024 identified multilevel degenerative disc disease with facet arthropathy and varying degrees of spinal canal and neural foraminal stenosis at multiple levels. There was moderate left neural foraminal narrowing at L1-L2 and L3-L4 and mild to moderate right neural foraminal narrowing at L3-L4. At L4-L5, there was crowding of both subarticular zones at L4-L5. The patient has tried physical therapy for her symptoms with positive response, but symptoms persist. PLAN: - I reviewed MRI results with the patient - Will schedule for right L5 epidural injections. The patient does not believe she needs left-sided injections at this time. Risks including but not limited to epidural hematoma, bleeding, contrast reaction, infection, cumulative steroid dose risk, allergic reaction, and weakness have been discussed with the patient. She verbalizes understanding and wishes to proceed - Could consider facet injections in the future if there is less than optimal response to epidural injections - Continue at home physical therapy exercises - May continue gabapentin 300 mg by mouth three times a day if well tolerated. OARRS reviewed Diagnosis and treatment options discussed in detail. All questions answered. The patient verbalizes understanding and is agreeable to the plan. Discussion in layman's terms. Follow up in the office within 1 month; sooner if needed for new or worsening symptoms. Paula Benson NP [facility] documented in this encounter [facility] 08-16-2024 Chief complaint+R marvin for visit Narrative hip pain talk about referral , ear lavage August 16, 2024 1:59pm r29.898 September 06, 2024 3:0 0pm Reason for Visit Admit Date Impacted cerumen of both ears August 16, 2024 1:59pm Lumbar pain August 16, 2024 1:59 pm [facility] Work Phone: 1(536) 511-696503-04-2025 Evaluation note* Diagnosis Onset Date Resolution Status Admit Date Impacted cerumen of both ears acute August 16, 2024 1:59pm Lumbar pain acute August 16 1:59pm [facility] Work Phone: 1(407) 236-460412-10-2024 History of Present illness Narrative* Mustapha Mccauley DO - 05/24/2024 4:15 PM EST Images from the original note were not included. Chief Compliant: Paresthesia Subjective Pebbles Johnson, 69 y.o., female Patient presents today for a follow up for paresthesia in bilateral lower extremities. She is here with her boyfriend. She had an EMG completed for review. Patient has been going for physical therapywhich she states is helping. She is still having some lower back pain. She admits to numbness and tingling on bilateral LE. She denies any new concerns at this time. Review of Systems Constitutional: Negative for appetite change, fatigue and fever. Respiratory: Negative for cough, shortness of breath and wheezing. Cardiovascular: Negative for chest pain, palpitations and leg swelling. Gastrointestinal: Negative for abdominal pain, constipation, diarrhea and nausea. Musculoskeletal: Negative for arthralgias, gait problem and myalgias. Neurological: Positive for numbness. Negative for dizziness, tremors and headaches. No past medical history on file. No past surgical history on file. No family history on file. Social History Tobacco Use Smoking status: Not on file Smokeless tobacco: Not on file Substance Use Topics Alcohol use: Not on file Allergies: Sulfa antibiotics There were no vitals filed for this visit. There is no height or weight on file to calculate BMI. Neurologic exam: Mental status: Awake, alert to person, place and time. Recent and remote memory are intact. Language is fluent without aphasia. Attention and concentration are normal. Fund of knowledge is appropriate for level of education. Cranial nerves: CN II: Visual acuity is normal. Visual quevedo full to confrontation. CN III, IV, : pupils equal round and reactive to light. Extraocular movements intact. No ptosis present. CN V: Facial sensation is normal. CN VII: Full and symmetric facial movement. CN VIII: Hearing is normal to finger rub bilaterally: CN IX and X: Palate elevates symmetrically. CN XI: Shoulder shrug is normal bilaterally. CN XII: Tongue is midline without atrophy or fasciculation. Motor: RUE Strength deltoid, , biceps , triceps , wrist extensors , wrist flexor , vocational coordinator strength 5/5. LUE Strength deltoid , biceps , triceps , wrist extensors , wrist flexor , vocational coordinator strength 5/5. RLE Strength illopsoas, quadriceps, tibialis anterior, and gastrocnemius strength 4+/5. LLE Strength illopsoas, quadriceps, tibialis anterior, and gastrocnemius strength 4+/5. Normal tone x4 extremities. Bulk is normal. Sensory: Sensation is intact to light touch throughout Four extremities. Reflexes: RUE biceps reflex 2+ brachioradialis reflex 2+ . LUE biceps reflex 2+ brachioradialis reflex 2+ . RLE knee reflex 1+ . LLE knee reflex 1+ . Crockett's sign negative. Coordination: Lbzdxb-pq-cyzc testing and rapid alternating movements are normal Gait: Normal Review and summary of old records: EMG of the bilateral lower extremities and [facility] on 05/17/2024: Bilateral S1 radiculopathies which are mild in degree electrically. No evidence of polyneuropathy. Hemoglobin A1c, B12 and thyroid stimulating hormone are normal on 03/15/2024 Assessment/Plan Diagnoses and all orders for this visit: Lumbosacral radiculopathy Bilateral leg weakness It is my impression that the patient has paresthesias of the bilateral lower extremities. She does also relate some back pain. She states that this is worsening over the course of the last few months. She is unclear for the etiology. She is not a diabetic. Thyroid, A1c and B12 are within normal limits. She has no history of chemotherapy use. She is not an alcoholic. Examination is largely unremarkable. EMG does identified bilateral S1 radiculopathies. The patient has subtle weakness of the bilateral lower extremities, reflex changes, dermatomal distribution of symptoms, EMG confirmation of S1 radiculopathy and worsening of symptoms that have not responded to physical therapy. This mandates imaging to rule out a compressive lesion which could be d ebilitating not correctly identified and treated. Plan: Continue physical therapy MRI of the lumbar spine without contrast Epidural injection bilaterally at L5. Risks and benefits explained to the patient included but not limited to epidural hematoma, contrast reaction, infection, cumulative steroid dosing risk, weaknessand others. Patient understands these risks and wishes to proceed. The patient has no known history of contrast allergy. The patient takes aspirin but no other blood thinners. The patient is boyfriend accompanied her to the visit today and provided additional history. Pt has been fully educated on their diagnosis, treatment options, follow up plan, and return instructions documented in this encounterS[facility] [id number] History of Present illness Narrative* Tess Lopez PT - 05/24/2024 9:30 AM EST Physical Therapy Treatment Visit Patient Name: Pebbles Johnson Today's Date: 05/24/2024 Encounter Diagnoses Name Primary? Paresthesia Yes Radiculopathy, lumbar region Visit number: 6 Timed Code Treatment Minutes: 42 minutes Total Treatment Time: 55 minutes Time In: 9:37 AM Time Out: 10:32 AM History: Pt. Presents to PT with bilateral LE radiculopathy and low back pain which started a couple months ago. Pt. Stands for long periods while at work which increases her symptoms. Sleeping at night and standing for long periods of time really increases her pain. Long history of back pain but now her back pain is affecting her quality of life. N/T travels down the front on her leg. Precautions: universal Subjective Pt. Reports of 70% improvement, less episodes of N/T throughout the day. Compliant with HEP and PT is help to improve her quality of life. Pain: denies present pain Objective: PT Evaluation (04/28/24) Lumbar ROM: grossly WFL in all planes Flexibility: moderate piriformis and lumbar paraspinal muscle tightness, mild hamstring Joint: hypomobility at L4/5 Strength: core 4-/5, hip 4/5 grossly Gait: waddle, antalgic gait Posture: increased lumbar lordosis Palpation: increased lumbar paraspinal muscle tightness Treatment: Manual Therapy: (17 minutes ) Delivered pt prone manual ther to lower lumbar spine paraspinals STM,PA mobs, sacral distractions to decrease pain and tone Therapeutic Exercise: (14 minutes unsupervised) Guided pt through ther and flex exercises per grid to improve lumbar LE strength stability and functional strength Therapeutic Activity: Exercises to improve dynamic activities, functional tasks, functional mobility to return to prior activity level Neuromuscular re-education: (13 minutes supervised ) Core lumbar stability exercises focusing on improving transverse abdominal muscle strength and stability Modalities: (15 minutes) Post session prone: IFC to lower lumbar pt prone to reduce muscle soreness Assessment: Pt has participated 6 PT session with start of POC on 04/28 for lumbar pain and paraesthesis in LE.Reports positive improvement in low back pain with PT interventions and performing HEP. Pt. Demonstrates good progress with PT and recommend to continue PT treatment to help her continue to improve core/hip strength to help improve her quality of life and met full goals. Outcome Measure: 44/80 LEFS Short Term Goal: To be met in 2 weeks Goal 1: Pt to be instructed in home exercise program. Animal Ride Manager Goals: To be met in 10 weeks Goal 1: Pt to report independence and compliance with home program. Goal 2: Pt. Will report of 2/10 low back pain while standing for long periods of time to help improve her functional mobility and quality of life. (Progressing) Goal 3: Pt. Will demonstrate normal lumbar paraspinal muscle and piriformis to help decrease back pain and improve her functional mobility. (Progressing) Goal 4: Pt. Will demonstrate 5/5 core strength to allow her to stand for long periods of time whileat work. (Progressing) Goal 5: Pt. Will demonstrate 5/5 hip strength to allow her to stand for long periods of time while at work. (Progressing) Goal 6: Pt. Will score 65 or greater on LEFS to help improve her functional mobility. Pt will benefit from skilled PT for 1-2x/week from 04/28/24 to 07/07/24 to address the above impairments. I hereby deem this POC medically necessary. Please sign below. Date: documented in this encounterSoutheast [facility] [id number] History of Present illness Narrative* ROYER Lozada - 05/17/2024 12:30 PM EST Images from the original note were not included. Reason for Appointment: EMG Patient: Pebbles Johnson : 1955 EMG Computer: [employer] Referring Physician: Dr. Mustapha Mccauley EMG: ABDIRAHMAN mechanical engineering draftsperson: Brian Liao RT(R) Office Location: [place] Reason for EMG: c/o numbness/tingling in bilateral feet, low back pain. No hx of DM. Taking ASA. Comments: Procedure was explained to the patient who expressed understanding. Patient appeared to have tolerated the test well despite some discomfort due to the nature of the test. documented in this encounterSoutheast [facility] [id number] Hospital Discharge instructions Patient Education 05/03/2024 15:01:36 Overactive Bladder, Adult Overactive Bladder, Adult Overactive bladder is a condition in which a person has a sudden and frequent need to urinate. A person might also leak urine if he or she cannot get to the bathroom fast enough (urinary incontinence). Sometimes, symptoms can interfere with work or social activities. What are the causes? Overactive bladder is associated with poor nerve signals between your bladder and your brain. Your bladder may get the signal to empty before it is full. You may also have very sensitive muscles thatmake your bladder squeeze too soon. This condition may also be caused by other factors, such as: Medical conditions: ?Urinary tract infection. ?Infection of nearby tissues. ?Prostate enlargement. ?Bladder stones, inflammation, or tumors. ?Diabetes. ?Muscle or nerve weakness, especially from these conditions: ?A spinal cord injury. ?Stroke. ?Multiple sclerosis. ?Parkinson's disease. Other causes: ?Surgery on the uterus or urethra. ?Drinking too much caffeine or alcohol. ?Certain medicines, especially those that eliminate extra fluid in the body (diuretics). ?Constipation. What increases the risk? You may be at greater risk for overactive bladder if you: Are an older adult. Smoke. Are going through menopause. Have prostate problems. Have a neurological disease, such as stroke, dementia, Parkinson's disease, or multiple sclerosis (MS). Eat or drink alcohol, spicy food, caffeine, and other things that irritate the bladder. Are overweight or obese. What are the signs or symptoms? Symptoms of this condition include a sudden, strong urge to urinate. Other symptoms include: Leaking urine. Urinating 8 or more times a day. Waking up to urinate 2 or more times overnight. How is this diagnosed? This condition may be diagnosed based on: Your symptoms and medical history. A physical exam. Blood or urine tests to check for possible causes, such as infection. You may also need to see a health care provider who specializes in urinary tract problems. This is called a urologist. How is this treated? Treatment for overactive bladder depends on the cause of your condition and whether it is mild or severe. Treatment may include: Bladder training, such as: ?Learning to control the urge to urinate by following a schedule to urinate at regular intervals. ?Doing Kegel exercises to strengthen the pelvic floor muscles that support your bladder. Special devices, such as: ?Biofeedback. This uses sensors to help you become aware of your body's signals. ?Electrical stimulation. This uses electrodes placed inside the body (implanted) or outside the body. These electrodes send gentle pulses of electricity to strengthen the nerves or muscles that control the bladder. ?Women may use a plastic device, called a pessary, that fits into the vagina and supports the bladder. Medicines, such as: ?Antibiotics to treat bladder infection. ?Antispasmodics to stop the bladder from releasing urine at the wrong time. ?Tricyclic antidepressants to relax bladder muscles. ?Injections of botulinum toxin type A directly into the bladder tissue to relax bladder muscles. Surgery, such as: ?A device may be implanted to help manage the nerve signals that control urination. ?An electrode may be implanted to stimulate electrical signals in the bladder. ?A procedure may be done to change the shape of the bladder. This is done only in very severe cases. Follow these instructions at home: Eating and drinking Make diet or lifestyle changes recommended by your health care provider. These may include: ?Drinking fluids throughout the day and not only with meals. ?Cutting down on caffeine or alcohol. ?Eating a healthy and balanced diet to prevent constipation. This may include: ?Choosing foods that are high in fiber, such as beans, whole grains, and fresh fruits and vegetables. ?Limiting foods that are high in fat and processed sugars, such as fried and sweet foods. Lifestyle Lose weight if needed. Do not use any products that contain nicotine or tobacco. These include cigarettes, chewing tobacco, and vaping devices, such as e-cigarettes. If you need help quitting, ask your health care provider. General instructions Take xilf-wdr-necocwl and prescription medicines only as told by your health care provider. If you were prescribed an antibiotic medicine, take it as told by your health care provider. Do notstop taking the antibiotic even if you start to feel better. Use any implants or pessary as told by your health care provider. If needed, wear pads to absorb urine leakage. Keep a log to track how much and when you drink, and when you need to urinate. This will help your health care provider monitor your condition. Keep all follow-up visits. This is important. Contact a health care provider if: You have a fever or chills. Your symptoms do not get better with treatment. Your pain and discomfort get worse. You have more frequent urges to urinate. Get help right away if: You are not able to control your bladder. Summary Overactive bladder refers to a condition in which a person has a sudden and frequent need to urinate. Several conditions may lead to an overactive bladder. Treatment for overactive bladder depends on the cause and severity of your condition. Making lifestyle changes, doing Kegel exercises, keeping a log, and taking medicines can help with this condition. This information is not intended to replace advice given to you by your health care provider. Make sure you discuss any questions you have with your health care provider. Document Revised: 02/18/2021 Document Reviewed: 02/18/2021 [employer] Patient Education 2023 [employer]. Follow Up Care 10/16/2023 11:19:56 With:SARANYA WAYNE PA-C, URL Address: When:1 year [facility] 11-19-2024 NotePatient Education Obstetrics and Gynecology Overactive Bladder, Adult Overactive bladder is a condition in which a person has a sudden and frequent need to urinate. A person might also leak urine if he or she cannot get to the bathroom fast enough (urinary incontinence). Sometimes, symptoms can interfere with work or social activities. What are the causes? Overactive bladder is associated with poor nerve signals between your bladder and your brain. Your bladder may get the signal to empty before it is full. You may also have very sensitive muscles thatmake your bladder squeeze too soon. This condition may also be caused by other factors, such as: ??? Medical conditions: ? Urinary tract infection. ? Infection of nearby tissues. ? Prostate enlargement. ? Bladder stones, inflammation, or tumors. ? Diabetes. ? Muscle or nerve weakness, especially from these conditions: ? A spinal cord injury. ? Stroke. ? Multiple sclerosis. ? Parkinson's disease. ??? Other causes: ? Surgery on the uterus or urethra. ? Drinking too much caffeine or alcohol. ? Certain medicines, especially those that eliminate extra fluid in the body (diuretics). ? Constipation. What increases the risk? You may be at greater risk for overactive bladder if you: ??? Are an older adult. ??? Smoke. ??? Are going through menopause. ??? Have prostate problems. ??? Have a neurological disease, such as stroke, dementia, Parkinson's disease, or multiple sclerosis (MS). ??? Eat or drink alcohol, spicy food, caffeine, and other things that irritate the bladder. ??? Are overweight or obese. What are the signs or symptoms? Symptoms of this condition include a sudden, strong urge to urinate. Other symptoms include: ??? Leaking urine. ??? Urinating 8 or more times a day. ??? Waking up to urinate 2 or more times overnight. How is this diagnosed? This condition may be diagnosed based on: ??? Your symptoms and medical history. ??? A physical exam. ??? Blood or urine tests to check for possible causes, such as infection. You may also need to see a health care provider who specializes in urinary tract problems. This is called a urologist. How is this treated? Treatment for overactive bladder depends on the cause of your condition and whether it is mild or severe. Treatment may include: ??? Bladder training, such as: ? Learning to control the urge to urinate by following a schedule to urinate at regular intervals. ? Doing Kegel exercises to strengthen the pelvic floor muscles that support your bladder. ??? Special devices, such as: ? Biofeedback. This uses sensors to help you become aware of your body's signals. ? Electrical stimulation. This uses electrodes placed inside the body (implanted) or outside the body. These electrodes send gentle pulses of electricity to strengthen the nerves or muscles that control the bladder. ? Women may use a plastic device, called a pessary, that fits into the vagina and supports the bladder. ??? Medicines, such as: ? Antibiotics to treat bladder infection. ? Antispasmodics to stop the bladder from releasing urine at the wrong time. ? Tricyclic antidepressants to relax bladder muscles. ? Injections of botulinum toxin type A directly into the bladder tissue to relax bladder muscles. ??? Surgery, such as: ? A device may be implanted to help manage the nerve signals that control urination. ? An electrode may be implanted to stimulate electrical signals in the bladder. ? A procedure may be done to change the shape of the bladder. This is done only in very severe cases. Follow these instructions at home: Eating and drinking ??? Make diet or lifestyle changes recommended by your health care provider. These may include: ? Drinking fluids throughout the day and not only with meals. ? Cutting down on caffeine or alcohol. ? Eating a healthy and balanced diet to prevent constipation. This may include: ? Choosing foods that are high in fiber, such as beans, whole grains, and fresh fruits and vegetables. ? Limiting foods that are high in fat and processed sugars, such as fried and sweet foods. Lifestyle ??? Lose weight if needed. ??? Do not use any products that contain nicotine or tobacco. These include cigarettes, chewing tobacco, and vaping devices, such as e-cigarettes. If you need help quitting, ask your health care provider. General instructions ??? Take wqea-bmu-nzcpwsa and prescription medicines only as told by your health care provider. ??? If you were prescribed an antibiotic medicine, take it as told by your health care provider. Donot stop taking the antibiotic even if you start to feel better. ??? Use any implants or pessary as told by your health care provider. ??? If needed, wear pads to absorb urine leakage. ??? Keep a log to track how much and when you drink, and whe (more content not included)...[facility]11-14-2024 History of Present illness Narrative* Tess Andrew John, PT - 04/28/2024 2:00 PM EST Physical Therapy Evaluation Visit Patient Name: Pebbles Johnson Today's Date: 04/28/2024 Encounter Diagnoses Name Primary? Radiculopathy, lumbar region Yes Paresthesia Visit number: 1 Timed Code Treatment Minutes: 60 minutes Total Treatment Time: 60 minutes Time In: 1345 Time Out: 1430 History: Pt. Presents to PT with bilateral LE radiculopathy and low back pain which started a couple months ago. Pt. Stands for long periods while at work which increases her symptoms. Sleeping at night and standing for long periods of time really increases her pain. Long history of back pain but now her back pain is affecting her quality of life. N/T travels down the front on her leg. Precautions: universal Subjective Pain: 3/10 today; worst 8/10 Objective: PT Evaluation (04/28/24) Lumbar ROM: grossly WFL in all planes Flexibility: moderate piriformis and lumbar paraspinal muscle tightness, mild hamstring Joint: hypomobility at L4/5 Strength: core 4-/5, hip 4/5 grossly Gait: waddle, antalgic gait Posture: increased lumbar lordosis Palpation: increased lumbar paraspinal muscle tightness Treatment: PT evaluation (20 minutes) Education: HEP education with demonstration, Educated on Eval Findings and POC Manual Therapy: Passive ROM, Joint mobilization, Soft Tissue Mobilization, Myofascial Release, Muscle Energy Technique, Neural Mobilization, Myofascial Cupping, Dry Needling, IASTM, and Scar mobilization Therapeutic Exercise: (16 minutes) exercises in grid; Strength, Endurance, Flexibility, ROM, HEP, Neural Mobilization, Power, and Core Stability Therapeutic Activity: Exercises to improve dynamic activities, functional tasks, functional mobility to return to prior activity level Neuromuscular re-education: Balance Training, Muscle Facilitation, Dynamic Stability, Core Stabilization, and Blood Flow Restriction Training (BFRT) Modalities: (15 minutes) prone: IFC with MHP; Heat, Ice, Electrical Stimulation, Ultrasound, Cervical Mechanical Traction, Lumbar Mechanical Traction, Iontophoresis, and Fluidotherapy Assessment: Pt. Has participated 1 PT session with start of POC on 04/28 for lumbar pain and paraesthesis in LE. Pt. Will benefit from skilled PT services. PT treatment to focus on improving flexibility and strength. Outcome Measure: 44/80 LEFS Short Term Goal: To be met in 2 weeks Goal 1: Pt to be instructed in home exercise program. Shelter Goals: To be met in 10 weeks Goal 1: Pt to report independence and compliance with home program. Goal 2: Pt. Will report of 2/10 low back pain while standing for long periods of time to help improve her functional mobility and quality of life. Goal 3: Pt. Will demonstrate normal lumbar paraspinal muscle and piriformis to help decrease back pain and improve her functional mobility. Goal 4: Pt. Will demonstrate 5/5 core strength to allow her to stand for long periods of time whileat work. Goal 5: Pt. Will demonstrate 5/5 hip strength to allow her to stand for long periods of time while at work. Goal 6: Pt. Will score 65 or greater on LEFS to help improve her functional mobility. Pt will benefit from skilled PT for 1-2x/week from 04/28/24 to 07/07/24 to address the above impairments. I hereby deem this POC medically necessary. Please sign below. Date: Cosigned by Mustapha Mccauley DO at 04/28/2024 3:02 PM EST documented in this encounterSoutheast Missouri Community Treatment [id number] History of Present illness Narrative* Mustapha Mccauley DO - 04/19/2024 9:00 AM EST Images from the original note were not included. Chief Compliant: Paresthesia Subjective Pebbles Johnson, 69 y.o., female Pebbles presents today for a neurologic consult at the request of Dr. Jeffy Ramos for polyneuropathy. Patient states she is experiencing a tingling sensation on the bottom of both feet and toes. Shestates this has been happening for about 3 weeks. This is intermittent. She denies any numbness or pins and needles. She reports her toes turning somewhat blue when she is cold. She admits to pain inboth legs as well. She reports the right bothers her a bit more. She reports this is worse when sheis on her feet more often. She reports some imbalance and dizziness. She denies any recent falls. She is not diagnosed with diabetes but that's her last blood work implied that. She has not tried any medications. Review of Systems Constitutional: Negative for appetite change, fatigue and fever. Respiratory: Negative for cough, shortness of breath and wheezing. Cardiovascular: Negative for chest pain, palpitations and leg swelling. Gastrointestinal: Negative for abdominal pain, constipation, diarrhea and nausea. Musculoskeletal: Negative for arthralgias, gait problem and myalgias. Neurological: Positive for numbness. Negative for dizziness, tremors and headaches. No past medical history on file. No past surgical history on file. No family history on file. Social History Tobacco Use Smoking status: Not on file Smokeless tobacco: Not on file Substance Use Topics Alcohol use: Not on file Allergies: Sulfa antibiotics Vitals: 04/19/24 0847 BP: 143/82 Pulse: 73 SpO2: 93% Body mass index is 35.31 kg/m . weight: 174 lb 12.8 oz Neurologic exam: Mental status: Awake, alert to person, place and time. Recent and remote memory are intact. Language is fluent without aphasia. Attention and concentration are normal. Fund of knowledge is appropriate for level of education. Cranial nerves: CN II: Visual acuity is normal. Visual quevedo full to confrontation. CN III, IV, : pupils equal round and reactive to light. Extraocular movements intact. No ptosis present. CN V: Facial sensation is normal. CN VII: Full and symmetric facial movement. CN VIII: Hearing is normal to finger rub bilaterally: CN IX and X: Palate elevates symmetrically. CN XI: Shoulder shrug is normal bilaterally. CN XII: Tongue is midline without atrophy or fasciculation. Motor: RUE Strength deltoid, , biceps , triceps , wrist extensors , wrist flexor , vocational coordinator strength 5/5. LUE Strength deltoid , biceps , triceps , wrist extensors , wrist flexor , vocational coordinator strength 5/5. RLE Strength illopsoas, quadriceps, tibialis anterior, and gastrocnemius strength 5/5. LLE Strength illopsoas, quadriceps, tibialis anterior, and gastrocnemius strength 5/5. Normal tone x4 extremities. Bulk is normal. Sensory: Sensation is intact to light touch throughout Four extremities. Reflexes: RUE biceps reflex 2+ brachioradialis reflex 2+ . LUE biceps reflex 2+ brachioradialis reflex 2+ . RLE knee reflex 1+ . LLE knee reflex 1+ . Crockett's sign negative. Coordination: Fjtcnj-do-udev testing and rapid alternating movements are normal Gait: Normal Review and summary of old records: Hemoglobin A1c, B12 and thyroid stimulating hormone are normal on 03/15/2024 Assessment/Plan Diagnoses and all orders for this visit: Paresthesia It is my impression that the patient has paresthesias of the bilateral lower extremities. She does also relate some back pain. She states that this is worsening over the course of the last few months. She is unclear for the etiology. She is not a diabetic. Thyroid, A1c and B12 are within normal limits. She has no history of chemotherapy use. She is not an alcoholic. Examination is largely unremarkable. Plan: EMG of the bilateral lower extremities to assess for pathology as above in determine type and severity Physical therapy Based on response, we may need to consider imaging and other treatment modality such as medicationsor injections Pt has been fully educated on their diagnosis, treatment options, follow up plan, and return instructions documented in this encounterSoutheast Missouri Community Treatment [id number] [facility] Chief Complaint: Patient here for 1 year follow up hypertension and hyperlipidemia. Denies chest pain, SOB, and LE edema. Says she's doing well from cardiac standpoint. PCP stopped chlorthalidone back in Feb 2023. HPI: Pebbles Johnson is a 69 y.o. female with hypertension and hyperlipidemia seen in follow-up. Last seen by Dr. Temple in 02/2022 for BP management. BP is [...] dysfunction (abnormal relaxation). Normal (more content not included)...[facility] 10-16-2023 Hospital Discharge instructions Patient Education 10/16/2023 11:09:24 Vaginitis Vaginitis Vaginitis is a condition in which the vaginal tissue swells and becomes irritated. This condition is most often caused by a change in the normal balance of bacteria and yeast that live in the vagina.This change causes an overgrowth of certain bacteria or yeast, which causes the inflammation. Thereare different types of vaginitis. What are the [...] says it is okay. Use sanitary pads, ifneeded. Do not have sex until your health care provider approves. When you can return to sex, practice safesex and use condoms. Wipe from front to back. This avoids the spread of bacteria from the rectum to the vagina. General instructions Take laut-tuy-jcuqfnu and prescription medicines only as told by your health care provider. If you were prescribed an antibiotic medicine, take or use it as told by your health care provider.Do not stop taking or using the antibiotic [...] provider. Document Revised: 11/29/2020 Document Reviewed: 11/29/2020 [employer] Patient Education 2022 [employer]. Follow Up Care 07/28/2023 11:08:09 With:MARYAM BEAVERS, Jean Paul Burton, URL Address: [address] [place] [address] [place] [address]- When: Unknown [facility] 02-13-2024 Hospital Discharge instructions Patient Education 07/28/2023 11:01:31 EU - Cystoscopy with Urethral Dilation Discharge Instructions (CUSTOM) Cystoscopy with Urethral Dilation Voiding after the procedure: there may be some pain, urethral bleeding, burning, urgency, frequencyand blood tinged urine following the procedure. These [...] URBAN Address: [facility] [address] [place] [address]- Business (1) When:10/26/2023 11:01:17 [facility]02-13-2024 Note [id number] NoteCustom Cystoscopy with Urethral Dilation ? Voiding after [...] if you have a fever over 100 degreesFisher [facility] Evaluation note* Encounter Date Diagnosis Assessment Notes Treatment Notes Treatment Clinical Notes Jul, Contact with and (suspected) exposure to covid-19 (ICD-10 - Z20.822) Jul, Viral URI (ICD-10 - J06.9) Drink plenty of fluids, get plenty of rest. Take Tylenol or Motrin as needed for aches pains or fevers. Follow-up with your family physician if no improvement in 2 to 3 days [email or web address] Other 01-15-2024 Hospital Discharge instructions Patient Education [...] including vitamins, herbs, eye drops, creams, and jqql-roy-rsfdbnj medicines. ?Whether you are or may be [...] provider. Document Revised: 02/12/2022 Document Reviewed: 01/04/2021 [employer] Patient Education 2022 [employer]. 06/29/2023 11:52:01 Urinary Incontinence Urinary Incontinence Urinary [...] nerve stimulation). ?For women, using a medical authorization specialist to prevent urine leaks. This is a [...] right after experiencing incontinence. General instructions Take bhcx-qnt-ddqhvyq and prescription medicines only as told by [...] important. Where to find more information National [place] of Diabetes and Digestive and Kidney Diseases: www.niddk.nih.gov [employer] [employer]: www.urologyhealth.org Contact a health care [...] provider. Document Revised: 01/04/2021 Document Reviewed: 01/04/2021 [employer] Patient Education 2022 [employer]. Follow Up Care 03/23/2023 10:22:20 With:MARYAM BEAVERS, OLEKSANDR Topete Address: [facility] [address], [place] [address] [phone] When: Unknown Comments:sched cysto/urodynamics [facility] 12-20-2023 Evaluation note* Encounter Date Diagnosis Assessment [...] Edema of right ankle (ICD-10 - M25.471) [email or web address] Other 12-06-2023 Evaluation note* Encounter Date Diagnosis Assessment Notes Treatment Notes Treatment Clinical Notes May, Lumbar radiculopathy (ICD-10 - M54.16) [email or web address] Other 11-21-2023 Evaluation note* Encounter Date Diagnosis Assessment Notes Treatment Notes Treatment Clinical Notes Apr, Lumbar pain (ICD-10 - M54.50) Continue followup w chiropractor in 1 hr. XR order given. Discussed potential referral to pain management if needed. Will call w update. Taking motrin tid for pain. [email or web address] Other 11-15-2023 Evaluation note* Encounter Date Diagnosis [...] few weeks to go over the results. [email or web address] Other 10-26-2023 Evaluation note* Encounter Date Diagnosis Assessment Notes Treatment Notes Treatment Clinical Notes Mar, Anxiety, generalized (ICD-10 - F41.1) Skin exam normal. Suspect her anxiety is causing the itching sensation. Discussed medication and counseling. Followup in 1 month. [email or web address] Other 10-13-2023 Evaluation note* Encounter Date Diagnosis Assessment Notes Treatment Notes Treatment Clinical Notes Mar, Right ankle swelling (ICD-10 - M25.471) Discussed importance to r/o DVT. Consider referral based on US results. [email or web address] Other 09-27-2023 Evaluation note* Encounter Date Diagnosis Assessment Notes Treatment Notes Treatment Clinical Notes Feb, Essential hypertension (ICD-10 - I10) Discussed low bp today and how this can be linked to her symptoms of lightheadedness. Will hold chlorthalidone. Check bp daily. Call with readings. Followup in 1 month. [email or web address] Other 06-09-2023 Evaluation note* Encounter Date Diagnosis Assessment Notes Treatment Notes Treatment Clinical Notes Nov, Pruritus (ICD-10 - L29.9) Med could relieve itching and help her sleep Nov, Situational anxiety (ICD-10 - F41.8) Discussed medications and stress relief. Continue present chronic medications. [email or web address] Other 04-12-2023 Evaluation note* Encounter Date Diagnosis Assessment Notes Treatment Notes Treatment Clinical Notes Sep, Dysuria (ICD-10 - R30.0) [email or web address] Other 01-23-2023 Evaluation note* Encounter Date Diagnosis Assessment Notes Treatment Notes Treatment Clinical Notes Jun, Allergic cough (ICD-10 - R05.8) Discussed symptom management with Coricidin and Claritin. Call if fevers or shortness of breath occurs. Discussed masking at work for her own wellness as well as her coworkers and customers. [email or web address] Other 10-19-2022 Evaluation note* Encounter Date Diagnosis [...] get an MRI of the lumbar spine [email or web address] Other 10-18-2022 NotePROCEDURE: XR HIP LT 2 3V W PELVIS HISTORY: Left side sciatica ; low back and left hip pain for 2 weeks COMPARISON: None. FINDINGS: BONES:No fracture, acute abnormality, or significant arthropathy. SOFT TISSUES:No visible soft tissue swelling. EFFUSION:None visible. OTHER: Negative. IMPRESSION: 1. No acute bone abnormality or significant degenerative joint disease. Electronically authenticated by: KIRK CESAR Date: 2022-04-01 06:49[facility]06-01-2022 Evaluation note* Encounter Date Diagnosis Assessment Notes Treatment Notes Treatment Clinical Notes Nov, Other specified postprocedural states (ICD-10 - Z98.890) [email or web address] Other 05-16-2022 Evaluation note* Encounter Date Diagnosis Assessment Notes Treatment Notes Treatment Clinical Notes October, Primary osteoarthritis of left knee (ICD-10 - M17.12) [email or web address] Other 05-02-2022 Evaluation note* Encounter Date Diagnosis [...] poor healing. 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 I have [...] follow-up after this for further treatment options. [email or web address] Other 04-11-2022 Evaluation note* Encounter Date Diagnosis [...] follow-up after this for further treatment options. [email or web address] Other Chief complaint+Reason for visit Narrative* Chief Complaint Admit Date hip pain talk about referral, ear lavage August 16, 2024 1:59pm Reason for Visit Admit Date Lumbar pain August 16, 2024 1:59 pm Right hip pain August 16, 2024 1:59 pm [facility] Work Phone: Evaluation + Plan note Future Appointments Appointment Date:07/28/2023 09:00:00 AM Scheduled Provider: Location:[facility] Appointment Type:Urology FT Appointment Date:07/28/2023 10:15:00 AM Scheduled Provider: Location:[facility] Appointment Type:Urology FT [facility] evaluation + Plan note Future Appointments Appointment Date:10/16/2023 10:30:00 AM Scheduled Provider:Jean Paul URBAN MD Location:[facility] Future Appointments Appointment Date:04/22/2024 09:45:00 AM Scheduled Provider:Jean Paul URBAN MD Location:[facility] Appointment Type:URO Office Visit [facility] evaluation noteNo InformationNortSelect Specialty Hospital - [facility] [employer] Other Evaluation noteNo assessment information available [facility] Work Phone: Evaluation note* Diagnosis Paresthesia- Primary Disturbance of skin sensation [facility] Diagnosis Paresthesia- Primary Disturbance of skin sensation Radiculopathy, lumbar region Thoracic or lumbosacral neuritis or radiculitis, unspecified documented [facility]* Diagnosis Paresthesia- Primary Disturbance of skin sensation Radiculopathy, lumbar region Thoracic or lumbosacral neuritis or radiculitis, unspecified documented in [facility] encounter [facility]* Diagnosis Radiculopathy, lumbar region- Primary Thoracic or lumbosacral neuritis or radiculitis, unspecified Paresthesia Disturbance of skin sensation [facility]* Diagnosis Paresthesia- Primary Disturbance of skin sensation Radiculopathy, lumbar region Thoracic or lumbosacral neuritis or radiculitis, unspecified documented in this encounter [facility]* Diagnosis Lumbosacral radiculopathy- Primary Thoracic or lumbosacral neuritis or radiculitis, unspecified Paresthesia Disturbance of skin sensation documented in this encounter [facility]* Diagnosis Paresthesia- Primary Disturbance of skin sensation Radiculopathy, lumbar region Thoracic or lumbosacral neuritis or radiculitis, unspecified documented in this encounter [facility]* Diagnosis Weakness of both lower extremities- Primary Lumbosacral radiculopathy Thoracic or lumbosacral neuritis or radiculitis, unspecified documented in this encounter [facility]* Diagnosis Onset Date Resolution Status Admit Date Lumbar pain acute August 16 1:59pm Right hip pain acute August 16, 2024 1:59pm [facility] Work Phone: Evaluation note* Diagnosis Lumbar spondylosis- Primary Lumbosacral spondylosis without myelopathy Lumbosacral radiculopathy Thoracic or lumbosacral neuritis or radiculitis, unspecified Paresthesia Disturbance of skin sensation documented in this encounter [facility]* Diagnosis Lumbar radiculopathy- Primary Thoracic or lumbosacral neuritis or radiculitis, unspecified Lumbar spondylosis Lumbosacral spondylosis without myelopathy Lumbosacral radiculopathy Thoracic or lumbosacral neuritis or radiculitis, unspecified Paresthesia Disturbance of skin sensation documented in this encounter [facility] HealthcareHistory general Narrative - Reported* Type Description Date Medical History Benign essential HTN Medical History Hypercholesterolemia Surgical History colonoscopy Surgical History partial hysterectomy Hospitalization History see above [email or web address] Other History general Narrative - Reported* Type [...] knee surgery 10/2021 Hospitalization History see above [facility] [employer] Other Hospital course Narrative No data available for this section [facility] progress note No data available for this section [facility] reason for referral (narrative)No reason for referral information availableMer[facility] Health [facility] Work Phone: Reason for visit NarrativeLOWER BACK - REFERRAL FOR [facility] [employer] Other Reason for visit Narrative* Consultation (Routine) - Closed Specialty Diagnoses / Procedures Referred By Gemma andrew Referred To Contact Neurology Diagnoses Polyneuropathy, unspecified Procedures [place] OFFICE/OUTPATIENT NEW LOW MDM 30 MINUTES Jeffy Ramos MD [address] [place] [address] Phone: tel: fax: Mustapha Mccauley DO [address] [address] Phone: tel: fax: Referral ID Status Reason Start Date Expiration Date V isits Requested Visits Authorized [id number] Closed Consult and Treat 03/22/2024 09/18/2024 1 1 [facility] Narrative* Consultation (Routine) - Authorized Specialty Diagnoses / Procedures Referred By Gemma andrew Referred To Contact Physical Therapy Diagnoses Paresthesia Procedures [place] OFFICE/OUTPATIENT NEW HIGH MDM 60 MINUTES Mustapha Mccauley DO [address] [address] Phone: tel: fax: [facility] [address] [facility] [address] [place] [address] Phone: tel: fax: Referral ID Status Reason Start Date Expiration Date Visits Requested Visits Authorized [id number] Authorized Specialty Services Required 04/19/2024 10/16/2024 99 99 [facility] for [facility] Narrative* Consultation (Routine) - Authorized Specialty Diagnoses / Procedures Referred By Gemma andrew Referred To Contact Physical Therapy Diagnoses Paresthesia Procedures [place] OFFICE/OUTPATIENT NEW HIGH MDM 60 MINUTES Mustapha Mccauley DO [address] [place] [address] Phone: tel: fax: [facility] [address] [address] Phone: tel: fax: Referral ID Status Reason Start Date Expiration Date Visits Requested Visits Authorized [id number] Authorized Specialty Services Required 04/19/2024 06/14/2024 99 99 [facility] for [facility] Narrative* Injection (Routine) - Closed Specialty Diagnoses / Procedures Referred By Gemma andrew Referred To Contact Neurology Diagnoses Lumbar spondylosis Lumbosacral radiculopathy Paresthesia Procedures Nerve Block Paula Benson NP [address] [place] [phone] Phone: tel: Referral ID Status Reason Start Date Expiration Date Visits Re quested Visits Authorized [id number] Closed 10/11/2024 01/05/2025 1 1 [facility] Family History Relationship Condition Age at Onset Recorded Date/T elizabeth Not Specified Malignant neoplasm of kidney Unknown father Pulmonary emphysema Unknown brother Chronic obstructive pulmonary disease Unk nown Relationship Condition Age at Onset Recorded Date/T elizabeth mother Malignant neoplasm of kidney Unknown father Pulmonary emphysema Unknown brother Chronic obstructive pulmonary disease Unk nown Diabetes mellitus Unknown father Unknown Heart disease Unknown mother Malignant neoplasm Unknown Unknown Advance Directives Advance Directive Response Recorded Date/ Time Advance Directives No July 08, 2020 7:33pm Advance Directive Response Recorded Date/ Time Advance Directives No July 08, 2020 6:33pm Summary Purpose Reason for Referral Reason lumbar pain Diagnosis 1 Lumbar radiculopathy (M54.16) Referral Organization [facility] kavin Referring Provider First Name Jeffy Referring Provider Last Name Richard Referring Provider Specialty Family Medi cine Referred Organization [facility] Referred Address [address], [place],[address] Referred Provider Specialty Pain Medicin e Referral Priority Routine Reason *Waiting for appt swelling and varicosities Diagnosis 1 Right ankle swelling (M25.471) Referral Organization [facility] kavin Referring Provider First Name Jeffy Referring Provider Last Name Richard Referring Provider Specialty Family [facility] cine Referred Organization [facility] Vascular Surge ry Referred Provider Gucci Meyers Referred Address [address] [facility] [address],[place], [place],[address] Referred Provider Specialty Vascular Navjot soledad Referral Priority Routine General Notes Yuridia Garcia 12:53:57 PM >received today, faxed P2P Chief Complaint and Reason for Visit Chief Complaint i83.813 Chief Complaint Admit Date Ear Cleaning December 27, 2024 9:27 am Additional Source Comments REASON FOR VISIT (unrecogniz ed section and content) Reason Onset Date Comments PT Initial Eval 04/20/2024 Tried to contact to schedule PT Eval for Paresthesia; had to lm requesting a call back. Call Back 04/20/2024 She called my g she is off / and s; I scheduled her PT eval for 04/28 w/ Tess Lopez PT. Reason Comments Back Pain Care Teams (unrecognized sec tion and content) Team Status: Active Member Role Status Dates Jeffy Ramos MD Primary Care Provider Active Team Status: Active Member Role Status Dates Jeffy Ramos MD Primary Care Provider Active Start: November 10, 2024 Cynthia Temple Attending Provider Active Start: November 10, 2024 Team Status: Inactive Member Role Status Dates Jeffy Rmaos MD Primary Care Provider Active Start: December 27, 2024 End: December 27, 2024 Jeffy Ramos MD Attending Provider Active St art: December 27, 2024 End: December 27, 2024 Team Status: Inactive Member Role Status Dates [...] Active Gucci Meyers MD Attending Provider Active Shellfish Checker Relationship Specialty Start Date End Date Jeffy Ramos MD [address] [place] [facility] [address] PCP - General Family Medicine 02/25/24 Shellfish Checker Relationship Specialty Start Date End Date Jeffy Ramos MD [address] [place] [facility] [address] PCP - General Family Medicine 02/25/24 Shellfish Checker Relationship Specialty Start Date End Date Jeffy Ramos MD [address] [place] [facility] [address] PCP - General Family Medicine 02/25/24 Shellfish Checker Relationship Specialty Start Date End Date Jeffy Ramos MD [address] [place] [facility] [phone] PCP - General Family Medicine 02/25/24 Shellfish Checker Relationship Specialty Start Date End Date Jeffy Ramos MD [address] [place] [facility] [address] PCP - General Family Medicine 02/25/24 Shellfish Checker Relationship Specialty Start Date End Date Jeffy Ramos MD [address] [place] [facility] [address] PCP - General Family Medicine 02/25/24 Shellfish Checker Relationship Specialty Start Date End Date Jeffy Ramos MD [address] [place] [facility] [address] PCP - General Family Medicine 02/25/24 Shellfish Checker Relationship Specialty Start Date End Date Jeffy Ramos MD [address] [place] [facility] [address] PCP - General Family Medicine 02/25/24 Shellfish Checker Relationship Specialty Start Date End Date Jeffy Ramos MD [address] [place] [facility] [address] PCP - General Family Medicine 02/25/24 Shellfish Checker Relationship Specialty Start Date End Date Jeffy Ramos MD [address] [place] [facility] [address] PCP - General Family Medicine 02/25/24 Mustapha Mccauley DO [address] [place] [address] Referring Physician Neurology 05/17/24 Mer Rodriguez NP [address] [place] [address] Nurse Practitioner Neurology 05/17/24 Shellfish Checker Relationship Specialty Start Date End Date Jeffy Ramos MD [address] [place] [facility] [address] PCP - General Family Medicine 02/25/24 Mustapha Mccauley DO [address] [place] [address] Referring Physician Neurology 05/17/24 Mer Rodriguez NP [address] [place] [address] Nurse Practitioner Neurology 05/17/24 Paula Benson NP [address] [place] [address] Nurse Practitioner Neurology 05/17/24 Shellfish Checker Relationship Specialty Start Date End Date Jeffy Ramos MD [address] [place] [facility] [address] PCP - General Family Medicine 02/25/24 Mustapha Mccauley DO [address] [place] [address] Referring Physician Neurology 05/17/24 Mer Rodriguez NP [address] [place] [address] Nurse Practitioner Neurology 05/17/24 Paula Benson NP [address] [place] [address] Nurse Practitioner Neurology 05/17/24 Shellfish Checker Relationship Specialty Start Date End Date Jeffy Ramos MD [address] [place] [facility] [address] PCP - General Family Medicine 02/25/24 Mustapha Mccauley DO [address] [place] [address] Referring Physician Neurology 05/17/24 Mer Rodriguez NP [address] [place] [address] Nurse Practitioner Neurology 05/17/24 Paula Benson NP [address] [place] [address] Nurse Practitioner Neurology 05/17/24 Shellfish Checker Relationship Specialty Start Date End Date Jeffy Ramos MD [address] [place] [facility] [address] PCP - General Family Medicine 02/25/24 Mustapha Mccauley DO [address] [phone] Referring Physician Neurology 05/17/24 Mer Rodriguez, QUINTON [address] [address] Nurse Practitioner Neurology 05/17/24 Paula Benson NP [address] [phone] Nurse Practitioner Neurology 05/17/24 Team Status: Active Member Role Status Dates Jeffy Ramos MD Primary Care Provider Active Team Status: Inactive Member Role Status Dates Jeffy Ramos MD Primary Care Provide r, Attending Provider Active Start: August 16, 2024 End: August 16, 2024 Team Status: Inactive Member Role Status Dates Jeffy Ramos MD Primary Care Provider Active Start: September 06, 2024 End: September 06, 2024 Mustapha Mccauley DO Attending Provider Active Start: September 06, 2024 End: September 06, 2024 Shellfish Checker Relationship Specialty Start Date End Date Jeffy Ramos MD [address] [place] [facility] [address] PCP - General Family Medicine 02/25/24 Mustapha Mccauley DO [address] [address] Referring Physician Neurology 05/17/24 Mer Rodriguez, QUINTON [address] [address] Nurse Practitioner Neurology 05/17/24 Paula Benson, QUINTON [address] [address] [place] [phone] Nurse Practitioner Neurology 05/17/24 Shellfish Checker Relationship Specialty Start Date End Date Jeffy Ramos MD [address] [facility] [place] [address] PCP - General Family Medicine 02/25/24 Mustapha Mccauley DO [address] [address] [place] [address] Referring Physician Neurology 05/17/24 Mer Rodriguez NP [address] [address] [place], [place] [phone] Nurse Practitioner Neurology 05/17/24 Paula Benson NP [address] [address] [place] [phone] Nurse Practitioner Neurology 05/17/24 Shellfish Checker Relationship Specialty Start Date End Date Jeffy Ramos MD PCP - General Family Medicine 02/25/24 Mustapha Mccauley DO [address] [address] [place] [address] Referring Physician Neurology 05/17/24 Mer Rodriguez NP [address] [address] [place] [address] Nurse Practitioner Neurology 05/17/24 Paula Benson NP [address] [address] [place] [phone] Nurse Practitioner Neurology 05/17/24 Shellfish Checker Relationship Specialty Start Date End Date Jeffy Ramos MD PCP - General Family Medicine 02/25/24 Mustapha Mccauley DO [address] [place] [phone] Referring Physician Neurology 05/17/24 Mer Rodriguez, QUINTON [address] [place] [phone] Nurse Practitioner Neurology 05/17/24 Paula Benson NP [address] [phone] Nurse Practitioner Neurology 05/17/24 Team Status: Active Member Role Status Dates Jeffy Ramos MD Primary Care Provider Active Start: November 10, 2024 Cynthia Temple Attending Provider Active Start: November 10, 2024 Team Status: Inactive Member Role Status Dates Jeffy Ramos MD Primary Care Provider Active Start: December 27, 2024 End: December 27, 2024 Jeffy Ramos MD Attending Provider Active St art: December 27, 2024 End: December 27, 2024 Goals (unrecognized section and content) Goals may be documented in a n alternate section INFORMATION SOURCE (unrecogn ized section and content) DATE CREATED AUTHOR 09/30/2022 [facility] DATE CREATED AUTHOR AUTHOR'S ORGANIZ ATION 05/06/2024 [facility] DATE CREATED AUTHOR AUTHOR'S ORGANIZ ATION 09/10/2024 [facility] DATE CREATED AUTHOR AUTHOR'S ORGANIZ ATION 10/12/2024 [facility] EPIC DATE CREATED AUTHOR AUTHOR'S ORGANIZ ATION 12/18/2024 [facility] FOR RECORDS PERTAINING TO PATIENTS WHO ARE [...] BE BASED ON THE PRIMARY CLINICAL RECORDS. [facility] [employer] [facility]. provides no warranty or guarantee of the accuracy or completeness of information in this document.
[2025-01-14 14:27] VITALS: BP 129/58; PULSE 66; TEMP 36.9; O2SAT 97; BMI 35.1
[2025-01-14 15:02] LABS: Glucose Urine UA NEGATIVE (NEGATIVE)
--- NOTE | 2025-01-14 15:36 | CT_ITS ---
[address] [address] Patient Name: PEBBLES PEREYRA MRN: [id number] date: 1955 Sex: F Assigned Patient Location: ER Current Patient Location: ER Accession/Order Number: [id number] Exam Date: 01/14/2025 17:43 Report Date: 01/14/2025 17:48 At the request of: JUANA BAJWA Procedure: CT abdomen pelvis w con CT abdomen pelvis w con 01/14/2025 4:42 PM SIGNS AND SYMPTOMS: Abdominal pain, UTI TECHNIQUE: Multidetector ct axial images of the abdomen and pelvis were obtained with IV contrast. Multiplanar reformats were performed and reviewed to further define anatomy and possible pathology. CT was performed with one or more of the following dose reduction techniques: Automated exposure control, adjustment of the mA and/or kV according to patient size, or use of iterative reconstruction technique. COMPARISON: None. FINDINGS: Lower Chest: There is a hiatal hernia with gastric fundus in the lower mediastinum. ABDOMEN: Liver: Within normal limits. Bile Ducts: Normal caliber. Gallbladder: No calcified gallstones. Normal caliber wall. Pancreas: Within normal limits. Spleen: Within normal limits. Adrenals: Within normal limits. Kidneys: Within normal limits. Pelvis: Reproductive Organs: No pelvic masses. Ureters: Within normal limits. Bladder: Within normal limits. Bowel: There are uncomplicated colonic diverticula. There is wall thickening along the sigmoid colon near the junction of the descending colon suspicious for acute diverticulitis. There is accompanying fat stranding. There is no bowel obstruction. Mesenteric Lymph Nodes: No enlarged mesenteric lymph nodes. Peritoneum: No ascites or free air, no fluid collection. Vessels: Atherosclerotic changes are noted in the abdominal aorta and its branches. Retroperitoneum: Within normal limits. Abdominal Wall: Within normal limits. Bones: Degenerative changes are noted in the thoracolumbar spine as well as the hips and sacroiliac joints. CT/CT abdomen pelvis w con IMPRESSION: Findings suggest acute diverticulitis near the junction of the descending and sigmoid colon. No perforation or abscess formation. Impression dictated by: Tin Guadalupe M.D. 01/14/2025 5:48 PM Dictation Location: [place] [address] Electronically authenticated by: [id number] Y Date: 01/14/2025 17:48
--- NOTE | 2025-01-14 15:37 | ED.ABDPAIN1 ---
HPI - Abdominal Pain General Chief Complaint: Abdominal Pain Stated Complaint: UTI Time Seen by Provider: 01/14/25 15:31 Source: patient Mode of arrival: walk-in Limitations: no limitations History of Present Illness HPI narrative: Patient is a 69-year-old female who presents to the emergency department for 2-day history of pain across the low abdomen. She denies any radiation of the pain. She states she feels bloated. She has had no fevers, chills, nausea, vomiting. She feels she is passing normal bowel movements. No diarrhea or blood in her stool. She has not had any dysuria or hematuria although she thought she might have a UTI causing her symptoms. No medications taken prior to arrival. She states she has had a partial hysterectomy, no other abdominal surgeries. Related Data Home Medications ?Medication ?Instructions ?Recorded ?Confirmed carvedilol 25 mg tablet 12.5 mg PO BID 12/29/22 01/14/25 lisinopril 40 mg tablet 40 mg PO DAILY 12/29/22 01/14/25 pantoprazole 40 mg tablet,delayed 40 mg PO DAILY 12/29/22 01/14/25 release rosuvastatin 40 mg tablet 40 mg PO .evry other day 12/29/22 01/14/25 aspirin 81 mg tablet,delayed 81 mg PO DAILY 06/24/23 01/14/25 release (Adult Aspirin Regimen) ezetimibe 10 mg tablet 10 mg PO QDAY 01/14/25 01/14/25 hydrochlorothiazide 25 mg tablet 25 mg PO QAM 01/14/25 01/14/25 Previous Rx's ?Medication ?Instructions ?Recorded ciprofloxacin HCl 500 mg tablet 500 mg PO Q12H #14 tabs 01/14/25 hyoscyamine sulfate 0.125 mg 0.125 mg PO Q6H PRN abdominal pain 01/14/25 tablet (Levsin) #12 tabs metronidazole 500 mg tablet 500 mg PO Q12H 7 days #14 tabs 01/14/25 ondansetron 4 mg disintegrating 4 mg PO Q6H PRN nausea and 01/14/25 tablet vomiting #12 tabs Allergies Allergy/AdvReac Type Severity Reaction Status Date / Time Sulfa (Sulfonamide Allergy Mild Rash Verified 01/14/25 14:24 Antibiotics) Review of Systems ROS Constitutional Denies: fever or chills Ears, nose, mouth, and throat Denies: throat pain Cardiovascular Denies: chest pain Respiratory Denies: shortness of breath or cough Gastrointestinal Reports: abdominal pain and bloating; Denies: nausea, vomiting, diarrhea or constipation Musculoskeletal Denies: back pain Integumentary/Breast Denies: rash Neurological Denies: numbness in extremities or weakness in extremities Hematologic/Lymphatic Denies: easy bruising or easy bleeding PFSH PFSH Medical History (Updated 01/14/25 @ 17:52 by AYDEE Hannah) Heartburn ?R12 - Heartburn (ICD-10) High cholesterol ?E78.00 - Pure hypercholesterolemia, unspecified (ICD-10) HTN (hypertension) ?I10 - Essential (primary) hypertension (ICD-10) Surgical History (Updated 06/24/23 @ 10:35 by Nila Arnold RN) History of arthroscopic knee surgery ?Z98.890 - Other specified postprocedural states (ICD-10) History of cardiac cath ?Z98.890 - Other specified postprocedural states (ICD-10) Family History (Updated 02/01/24 @ 03:58 by Genie Hoang) Brother Family history of COPD (chronic obstructive pulmonary disease) Family history of diabetes mellitus Mother Family history of cancer Sister Family history of diabetes mellitus Daughter Family history of hypertension Father Family history of myocardial infarction Social History Within the past year, how often did you have a drink containing alcohol: monthly or less Within the past year, how many standard drinks containing alcohol did you have on a typical day: 1 or 2 Within the past year, how often did you have six or more drinks on one occasion: never Total score: 0 Score interpretation: A score less than 3 is consistent with normal alcohol consumption. Smoking status: Never smoker Non-prescribed substance use: denies use Highest level of school completed/degree received: high school graduate Are you now , , , , never or living with a partner: living with partner In a typical week, how many times do you talk on the telephone with family, friends, or neighbors: once per week How often do you get together with friends or relatives: once per week How often do you attend zoroastrian or baptism services: never Do you belong to any clubs or organizations such as zoroastrian groups unions, fraternal or athletic groups, or school groups: yes Total score: 2 Score interpretation: A score of greater than or equal to 2 indicates the lowest level of social isolation. Little interest or pleasure in doing things: not at all Feeling down, depressed, or hopeless: not at all Feel stressed/tense/nervous/anxious/difficulty sleeping: very much Life stressors: other Life stressor details: family and new job Due to disability, difficulty making decisions: No Do you think of yourself as: straight/heterosexual Gender Identity: female Exam Narrative Exam Narrative: Gen.: Awake, alert, in no distress Head: Normocephalic, atraumatic ENT: Moist mucous membranes Respiratory: No respiratory distress, lungs clear bilaterally Cardio: Regular rate and rhythm Gastrointestinal: Abdomen is soft, obese. Mildly distended and minimally diffusely tender to palpation of the bilateral lower quadrants of the abdomen. No guarding or rebound Extremities: Moves extremities equally Psych: Normal mood and affect Neuro: No focal neuro deficit Skin: Warm, dry, intact Constitutional Vital Signs, click to edit/add: Last Vital Signs Temp 98.4 F 01/14/25 14:27 Pulse 66 01/14/25 14:27 Resp 16 01/14/25 14:27 BP 129/58 01/14/25 14:27 Pulse Ox 97 01/14/25 14:27 O2 Del Method Room Air 01/14/25 14:27 Course Vital Signs Vital signs: Vital Signs Temperature 98.4 F 01/14/25 14:27 Pulse Rate 66 01/14/25 14:27 Respiratory Rate 16 01/14/25 14:27 Blood Pressure 129/58 01/14/25 14:27 Pulse Oximetry 97 01/14/25 14:27 Oxygen Delivery Method Room Air 01/14/25 14:27 Temperature 98.4 F 01/14/25 14:27 Pulse Rate 66 01/14/25 14:27 Respiratory Rate 16 01/14/25 14:27 Blood Pressure 129/58 01/14/25 14:27 Pulse Oximetry 97 01/14/25 14:27 Oxygen Delivery Method Room Air 01/14/25 14:27 MDM - Abdominal Pain MDM Narrative Medical decision making narrative: Abdomen is soft and benign, patient is hemodynamically stable with unremarkable lab studies. CT of the abdomen and pelvis shows acute uncomplicated diverticulitis with no abscess or perforation. Pain is well-controlled with Levsin only in the emergency department. Patient encouraged to follow clear liquid diet for 48 hours, started on Cipro, Flagyl, Zofran, Levsin for home. Follow-up with PCP and return to the emergency department if symptoms change or worsen. Medical Records Attestation: I reviewed the patient's medical records. Lab Data Attestation: I reviewed the patient's lab results. Labs: Lab Results 01/14/25 01/14/25 Range/Units 14:40 15:56 WBC 8.4 (4.0-11.0) 10^3/uL RBC 4.23 (4.20-5.40) 10^6/uL Hgb 12.2 (12.0-16.0) g/dL Hct 35.7 L (36.0-48.0) % MCV 84.4 (81.0-99.0) fL MCH 28.8 (26.7-34.0) pg MCHC 34.2 (29.9-35.2) g/dL RDW 13.6 (11.0-15.0) % Plt Count 204 (150-450) 10^3/uL MPV 9.2 L (9.5-13.5) fL Neut % (Auto) 70.8 (43.0-75.0) % Lymph % (Auto) 15.3 L (20.5-60.0) % [place] % (Auto) 10.8 (1.7-12.0) % Eos % (Auto) 2.3 (0.9-7.0) % Baso % (Auto) 0.4 (0.2-2.0) % Neut # (Auto) 6.0 (1.4-6.5) 10^3/uL Lymph # (Auto) 1.3 (1.2-3.8) 10^3/uL [place] # (Auto) 0.9 H (0.3-0.8) 10^3/uL Eos # (Auto) 0.2 (0.0-0.7) 10^3/uL Baso # (Auto) 0.0 (0.0-0.1) 10^3/uL Abs Immat Gran (auto) 0.03 (0.00-0.03) 10^3/uL Imm/Tot Granulo (auto) 0.4 (0.0-0.5) % Sodium 139 (136-145) mmol/L Potassium 3.5 (3.5-5.1) mmol/L Chloride 100 (98-107) mmol/L Carbon Dioxide 33.4 H (21.0-32.0) mmol/L Anion Gap 9.1 BUN 22.0 H (7.0-18.0) mg/dL Creatinine 0.87 (0.55-1.02) mg/dL Est GFR ( Amer) >60 (>=60 mL/min/1.73m^2) Est GFR (Non-Af Amer) >60 (>=60 mL/min/1.73m^2) BUN/Creatinine Ratio 25.3 Glucose 93 (74-106) mg/dL Lactate 0.9 (0.4-2.0) mmol/L Calcium 9.8 (8.5-10.1) mg/dL Total Bilirubin 0.7 (0.2-1.0) mg/dL AST 18 (15-37) U/L ALT 26 (14-59) U/L Alkaline Phosphatase 101 (46-116) U/L Total Protein 7.5 (6.4-8.2) g/dL Albumin 3.6 (3.4-5.0) g/dL Globulin 3.9 g/dL Albumin/Globulin Ratio 0.9 Lipase 26.0 (16.0-77.0) U/L Urine Color Lt. yellow (YELLOW) Urine Clarity Clear (CLEAR) Urine pH 6.0 (5.0-9.0) Ur Specific Wharton 1.025 (1.005-1.025) Urine Protein Negative (NEG/TRACE) mg/dL Urine Glucose (UA) Negative (NEGATIVE) mg/dL Urine Ketones Negative (NEGATIVE) mg/dL Urine Occult Blood Negative (NEGATIVE) Urine Nitrite Negative (NEGATIVE) Urine Bilirubin Negative (NEGATIVE) Urine Urobilinogen 0.2 (0.2-1.0) EU/dL Ur Leukocyte Esterase Negative (NEGATIVE) Imaging Data CT scan - abdomen: Attestation: I have reviewed the pertinent imaging results. Radiologist's impression: ITS Impressions Abdomen/Pelvis CT 01/14/25 15:36 IMPRESSION: Findings suggest acute diverticulitis near the junction of the descending and sigmoid colon. No perforation or abscess formation. Impression dictated by: Tin Guadalupe M.D. 01/14/2025 5:48 PM Dictation Location: [place] [address] Electronically authenticated by: [id number] Y Date: 01/14/2025 17:48 Discharge Plan Discharge Chief Complaint: Abdominal Pain Clinical Impression: Diverticulitis, Abdominal pain Patient Disposition: Home, Self-Care Time of Disposition Decision: 17:52 Condition: Good Prescriptions / Home Meds: New metronidazole 500 mg tablet 500 mg PO Q12H 7 Days Qty: 14 0RF ciprofloxacin HCl 500 mg tablet 500 mg PO Q12H Qty: 14 0RF hyoscyamine sulfate [Levsin] 0.125 mg tablet 0.125 mg PO Q6H PRN (Reason: abdominal pain) Qty: 12 0RF ondansetron 4 mg tablet,disintegrating 4 mg PO Q6H PRN (Reason: nausea and vomiting) Qty: 12 0RF No Action aspirin [Adult Aspirin Regimen] 81 mg tablet,delayed release (DR/EC) 81 mg PO DAILY ezetimibe 10 mg tablet 10 mg PO QDAY hydrochlorothiazide 25 mg tablet 25 mg PO QAM carvedilol 25 mg tablet 12.5 mg PO BID pantoprazole 40 mg tablet,delayed release (DR/EC) 40 mg PO DAILY lisinopril 40 mg tablet 40 mg PO DAILY rosuvastatin 40 mg tablet 40 mg PO . day Print Language: Solomon Islander Instructions: Diverticulitis (ED), Diverticulitis Diet (ED) Referrals: Farzana Aldana MD [Primary Care Provider, Family Practice] - 1 week
[2025-01-14] MEDS: HYOSCYAMINE SULFATE 0.125 MG TAB.SUBL SL (16:01)
[2025-01-14 16:02] LABS: Hematocrit 35.7 % (36.0-48.0); Hemoglobin 12.2 g/dL (12.0-16.0); Immature Granulocytes Abs Auto 0.03 10^3/uL (0.00-0.03); Immature Granulocytes Pct Auto 0.4 % (0.0-0.5); Lymphocytes Absolute Auto 1.3 10^3/uL (1.2-3.8); Mean Corpuscular HGB Conc 34.2 g/dL (29.9-35.2); Mean Corpuscular Hemoglobin 28.8 pg (26.7-34.0); Mean Corpuscular Volume 84.4 fL (81.0-99.0); Platelet Count 204 10^3/uL (150-450); Red Blood Count 4.23 10^6/uL (4.20-5.40); White Blood Count 8.4 10^3/uL (4.0-11.0)
[2025-01-14 16:17] LABS: Alanine Aminotransferase 26 U/L (14-59); Albumin Globulin Ratio 0.9; Albumin Level 3.6 g/dL (3.4-5.0); Alkaline Phosphatase 101 U/L (46-116); Anion Gap 9.1; Aspartate Amino Transferase 18 U/L (15-37); Blood Urea Nitrogen 22.0 mg/dL (7.0-18.0); Calcium 9.8 mg/dL (8.5-10.1); Carbon Dioxide 33.4 mmol/L (21.0-32.0); Chloride 100 mmol/L (98-107); Estimated GFR (African America >60 (>=60 mL/min/1.73m^2); Estimated GFR (Non-African Ame >60 (>=60 mL/min/1.73m^2); Globulin 3.9 g/dL; Glucose 93 mg/dL (74-106); Lipase 26.0 U/L (16.0-77.0); Potassium 3.5 mmol/L (3.5-5.1); Sodium 139 mmol/L (136-145); Total Protein 7.5 g/dL (6.4-8.2)
[2025-01-14 16:22] LABS: Lactate/Lactic Acid 0.9 mmol/L (0.4-2.0)
[2025-01-14] MEDS: CIPROFLOXACIN HCL 500 MG TABLET PO (18:08)
[2025-01-14] MEDS: METRONIDAZOLE 250 MG TABLET 500 MG PO (18:08)
== END 2025-01-14 18:10 | disposition home or self-care (01) ==
PROVIDERS: Physician Assistant; Emergency Provider Emergency Medicine; PCP Family Medicine
DX: K57.32 Diverticulitis of large intestine without perforation or abscess without bleeding (principal); R10.30 Lower abdominal pain, unspecified; Z90.711 Acquired absence of uterus with remaining cervical stump
CPT/HCPCS: 36415; 74177; 80053; 81003; 83605; 83690; 85025; 99285; Q9967

== ENCOUNTER 2025-03-02 09:00 | Outpatient (OUT) | payer OTHER, SELFPAY ==
--- OUTSIDE RECORDS SUMMARY | 2025-03-02 09:06 | XMS_ITS | CCD ---
Author Organization [facility] CliniSynv Care Team Providers Care [place] Folder Name Role Phone Alex Horton Unavailable Jeffy [...] Unavailable SUNDAY, ANGELA Attending Unavailable RAMOS, DR EJFFY Smith Primary Care Unavailable SUNDAY, ANGELA Consulting Unavailable ELTAHAWRichard, DR HAQUE Admitting Unavailable ELTAHAWRichard, DR HAQUE Attending Unavailable RAMOS, DR JEFFY Smith Primary Care Unavailable ELTAHAWRichard, DR HAQUE Consulting Unavailable NON STAFF Primary Care Provider UnavailDO Aelx Key Attending Provider Gucci Meyers Unavailable Marine Watson Unavailable NON STAFF Primary Care Provider UnavailMD Gucci Christine Attending Provider JEFFY RAMOS Primary Care Physician Lissa Prather Unavailable Jeffy Ramos MD Primary Care Provider [phone] URBAN, Jean Paul R Attending Unavailable URBAN, Jean Paul R Attending Unavailable URBAN, Jean Paul R Referring Unavailable URBAN, Jean Paul R Admitting Unavailable URBAN, Jean Paul R Attending Unavailable URBAN, Jean Paul R Referring Unavailable SARANYA WAYNE Attending Unavailable Garrick DO Christopher Unavailable Michael AIRPORT CONTROL OPERATOR, Mer Unavailable Juan C AIRPORT CONTROL OPERATOR, Paula Unavailable Jeffy Ramos MD Primary Care Provider Mustapha Mccauley DO Attending Provider Jeffy Ramos Primary Care Unavailable Mustapha Mccauley Attending Unavailab le Mustapha Mccauley Admitting Unavailab Jeffy Marcelino MD Primary Care Provider Michael AIRPORT CONTROL OPERATOR, Mer Unavailable PAULA BENSON Attending Unavailable GARRICK, [...] CHRISTOPHER Attending Unavailable ELTAHAWY, EHAB Attending Unavailable ELTAHAWRichard, EHAB Attending Unavailable ELTAHAWRichard, EHAB Attending Unavailable ELTAHAWY, EHAB Attending Unavailable Jeffy Ramos MD Primary Care Provider Elmatt, Chemaab A Attending Provider Jeffy Ramos MD Attending Provider Christian Pillai DO Attending Provider [phone] Cristela Turner CMA Attending Provider Unavaila madina Benson CROZE MACHINE OPERATOR-COMPREHENSIVE OPHTHALMOLOGIST-CPaula Attending Provider Mustapha Mccauley DO Attending Provider [phone] Jeffy Ramos MD Primary Care Provider Allergies Allergy Classification Reported Allergen(s) Allergy Type Date of Onset Reaction(s) Facility (17 sources) Sulf-10 Drug allergy Unknown [facility] Other (5 sources) Sulfonamides (Antibiotic); Translations: [Sulfa (Sulfonamide Antibiotics)] Allergy to substance 06-02-20 14 Rash [facility] (3 sources) steriod Propensity to adverse reactions 10-17-19 22 Redness of Skin [facility] (1 source) Sulfonamides (Antibiotic) Drug allergy (disorder) 01-10-[address] [facility] Repository (7 sources) HMG-CoA reductase inhibitor Drug allergy 08-27-19 14 Unknown [facility] Other (12 sources) Penicillin Drug Allergy 07-11-19 17 Unknown [facility] Other (3 sources) Allergies Reconciled Propensity to adverse reactions 04-30-20 21 Unknown [facility] Other (20 sources) Substance with sulfonamide structure and antibacterial mechanism of action (substance) Drug allergy 10-19-19 19 [facility] (3 sources) patient allergy list reviewed by nurse or physicia Propensity to adverse reactions 11-11-19 19 Comment:Done [facility] Other (7 sources) Statins Depletion *DIETARY PRODUCTS/DIETARY MANAGE Propensity to adverse reactions Unknown [facility] Other (5 sources) Sulfamethoxazole; Translations: [sulfamethoxazole ] Drug Allergy .... [facility] (1 source) rosuvastatin; Translations: [ROSUVASTATIN] Drug Allergy 02-16-20 24 [facility] Repository (1 source) Sulfur; Translations: [SULFUR] Drug Allergy 06-02-20 14 [facility] Repository Medications Current Medications Medication Drug [...] therapy Start: 10-22-2016 take 1 tablet by nazario once daily aspirin 81 mg oral tablet 81 mg = 1 tab(s), Oral, Daily, Refills(s) 0, Prophylaxis Start Date: 10/22/16 Status: Ordered azithromycin 250 mg oral tablet (8 sources) Macrolide Antimicrobial Start: 02-20-2025 Azithromycin 250 mg tablet Active 0 PO .COMPLEX February 20, 2025 12:00am For 250 mg dose pack: take 500 mg today (day 1), then 250 mg for 4 days (days 2-5) PO Complies with drug therapy Start: 01-05-2024 End: 02-18-2024 Azithromycin 250 mg tablet D iscontinued 0 PO .COMPLEX January 05, 2024 12:00am February 18, 2024 12:11pm For 250 mg dose pack: take 500 mg today (day 1), then 250 mg for 4 days (days 2-5) PO carvedilol 12.5 mg oral tablet (20 sources) alpha-Adrenergic Kalpana, beta-Adrenergic Kalpana Start: 01-23-2025 Carvedilol 12.5 mg tablet Active 12.5 MG PO January 23, 2025 12:00am Complies with drug therapy Start: 10-16-2021 take 1 tablet by [facility] twice daily Carvedilol 25 mg tablet Active 25 MG PO Twice daily October 16, 2021 12:00am Complies with drug therapy estradiol 0.1 mg/ml vaginal cream (2 sources) Estrogen Start: 10-16-2023 estradiol 0.1 mg/g Vag Crm 1 gm, Vaginal, As Directed, 42.5 gm, Refill(s) 4, Apply with plunger 2x per week. Also pply around outer urethra with finger., [id number], 149, cm, 10/16/23 10:35:00 EDT, Height/Length Dosing, 76.4, kg, 10/16/23 10:35:00 EDT, Weight Dosing Start Date: 10/16/23 Status: Ordered ezetimibe 10 mg oral tablet (20 sources) Dietary Cholesterol Absorption Inhibitor Start: 04-15-2024 take 1 tablet by mouth once daily Ezetimibe 10 mg tablet Active 10 MG PO Daily April 15, 2024 12:00am Complies with drug therapy fluocinonide 0.5 mg/ml topical cream (11 sources) Corticosteroid Start: 08-16-2024 End: 01-20-2025 Fluocinonide 0.05 % cream Active 1 APPLIC TOPICAL 2-4 TIMES PER DAY as needed for itching January 20, 2025 10:44am Complies with drug therapy gabapentin 300 mg [...] 14, 2023 1:00am January 05, 2024 10:00am nystatin [id number] unt/ml topical cream (20 sources) Polyene Antifungal Start: 02-02-2025 Nystatin 10 0,000 unit/gram cream Active 1 APPLIC TOPICAL Twice daily February 02, 2025 3:26pm [employer] application Externally Twice a day; Note: Source Status: Not-TakingundefinedPRN; Refills: 0; Provider: Richard Smith Complies with drug therapy Start: 08-14-2023 End: 02-18-2024 Nystatin 100,000 unit/gram c ream Discontinued 1 APPLIC TOPICAL Twice daily October 14, 2023 12:05pm February 18, 2024 12:29pm [employer] application Externally Twice a day; Note: Source Status: Not-TakingundefinedPRN; Refills: 0; Provider: Richard Smith Nystatin [id number] UNIT/GM 1 application Externally Twice a day for 10 days Not-Taking/PRN Nystatin [id number] UNIT/GM 1 application Externally Twice a day [...] / oxyCODONE hydrochloride 5 mg oral tablet (15 sources) Opioid Agonist Start: 11-14-2021 take 1 [...] Amoxicillin-Pot Clavulanate (1 source) Amoxicillin-Pot Clavulanate Not-Taking bupivacaine hydrochloride 2.5 mg/ml injectable solution (4 [...] procedure, # 2 tab(s), Refills(s) 0, Pharmacy: [facility], 150, cm, 06/29/23 11:34:00 EST, Height/Length [...] dose doxycycline hyclate 100 mg oral capsule (7 sources) Tetracycline-class Drug Start: 05-05-2024 End: 08-16-2024 take 1 capsule by mouth twice daily Doxycycline Hyclate 100 mg capsule Discontinued 100 MG PO Twice daily 03 04May 05, 2024 1:00am August 16, 2024 3:15pm escitalopram 10 mg oral tablet (17 sources) Serotonin Reuptake Inhibitor Start: 08-14-2023 End: [...] (20 sources) HMG-CoA Reductase Inhibitor Start: End: take 1 tablet by mouth once daily [...] as needed for 7 days VANESSA # [id number] Mar, Not-Taking triamcinolone acetonide 40 mg/ml injectable suspension (12 sources) Corticosteroid Start: 02-23-2023 Kenalog-40 Feb, 40 mg Problems Active Problems Problem Classification Problem Date Documented Date Episodic/Chronic Adjustment disorders (3 sources) Adjustment disorder with depressed mood; Translations: [Adjustment disorder with depressed mood] Onset: 11-04-2016 Chronic Anxiety disorders (20 sources) Anxiety; Translations: [Other specified anxiety disorders] Chronic Diabetes mellitus without complication (7 sources) Increased glucose level; Translations: [Other abnormal glucose] 03-15-2024 Episodic Disorders of lipid metabolism (20 sources) Dyslipidemia; Translations: [Hyperlipidemia, unspecified] Onset: 02-19-2022 Chronic Diverticulosis and diverticulitis (2 sources) Diverticulitis of large intestine; Translations: [Diverticulitis of large intestine without perforation or abscess without bleeding] 02-14-2025 Chronic Essential hypertension (20 sources) Essential hypertension; [...] Translations: [Mastitis without abscess] Episodic Nutritional deficiencies (7 sources) Iron deficiency; Translations: [Iron deficiency] 03-15-2024 Episodic Osteoarthritis (20 sources) Osteoarthritis of left knee joint; Translations: [Unilateral primary osteoarthritis, left knee] Onset: 09-23-2021 Resolved: 10-28-2021 Chronic Other aftercare (2 sources) Surgical follow-up; Translations: [Encounter for removal of sutures] 08-17-2023 Episodic Other aftercare (5 sources) Removal of sutures done; Translations: [Encounter for [...] Episodic Other ear and sense organ disorders (5 sources) Impacted cerumen of bilateral ears; Translations: [Impacted cerumen, bilateral] 08-18-2024 Episodic Other ear and sense organ disorders (8 sources) Disorder of right middle ear; Translations: [Unspecified disorder of right middle ear and mastoid] 12-27-2024 Episodic Other ear and sense organ disorders (8 sources) Excessive cerumen in ear canal ; Translations: [Impacted cerumen, left ear] 12-27-2024 Episodic Other inflammatory condition of skin (1 source) Pruritus, unspecified Episodic Other inflammatory condition of skin (3 sources) Lichen simplex chronicus; Translations: [Lichen simplex chronicus] Episodic Other nervous system disorders (7 sources) Peripheral nerve disease ; Translations: [Polyneuropathy, unspecified] 03-22-2024 Chronic Other nervous system disorders (20 sources) Abnormal gait; Translations: [Other abnormalities of gait and mobility] Episodic Other nervous system disorders (17 sources) Paresthesia; Translations: [Paresthesia of skin] 04-19-2024 Episodic Other nervous system disorders (7 sources) Impairment of balance; Translations: [Other abnormalities of gait and mobility] 08-14-2023 Episodic Other non-traumatic joint disorders (20 sources) Arthralgia of the pelvic region and thigh; Translations: [Pain in left hip] Onset: 08-06-2018 Episodic Other non-traumatic joint disorders (2 sources) Effusion, right ankle Episodic Other non-traumatic joint disorders (7 sources) Hip pain; Translations: [Pain in right [...] [Asymptomatic menopausal state] Episodic Residual codes; unclassified (7 sources) Bilateral lower limb edema; Translations: [Localized edema] 08-14-2023 Episodic Residual codes; unclassified (7 sources) Persistent insomnia; Translations: [Insomnia, unspecified] 08-14-2023 Episodic Spondylosis; intervertebral disc disorders; other back problems (14 sources) Lumbar spondylosis; Translations: [Spondylosis without myelopathy [...] of bilateral lower extremities Episodic Viral infection (7 sources) Disease caused by 2019-nCoV; Translations: [COVID-19] [...] Onset: 08-25-2016 Episodic Other aftercare (1 source) snf (current) use of aspirin; Translations: [ACCOUNT INSTALLATION SPECIALIST CURRENT USE OF ASPIRIN] Onset: 05-07-2022 Episodic Other aftercare (1 source) Other sports administrator (current) drug therapy; Translations: [OTH ACCOUNT INSTALLATION SPECIALIST CURRENT DRUG THERAPY] Onset: 05-07-2022 Episodic Other [...] Test Name Value Interpretation Reference Range Facility Basophils Auto (Bld) [#/Vol] Ordered By: Lisha So on 01-14-2025 Basophils (Bld) [#/Vol] 0.0 10 3/uL 0.0-0.1 [facility] Basophils/100 WBC Auto (Bld) Ordered By: Lisha So on 01-14-2025 Basophils/100 WBC (Bld) 0.4 % 0.2-2.0 [facility] Eosinophils/100 WBC Auto (Bl d)Ordered By: Lisha So on 01-14-2025 Eosinophils/100 WBC (Bld) 2.3 % 0.9-7.0 [facility] Erythrocyte distribution wid th Auto (RBC) [Ratio]Ordered By: Lisha So on 01-14-2025 Erythrocyte distribution width (RBC) [Ratio] 13.6 % 11.0-15.0 [facility] Estimated glomerular filtrat ion rate (GFR) non- AmericanOrdered By: Lisha So on 01-14-2025 GFR/1.73 sq M.predicted among non-blacks MDRD (S/P/Bld) [Vol rate/Area] mL/min/{1.73_m2} >=60 mL/min/1.73 m 2 [facility] Globulin Calc (S) [Mass/Vol] Ordered By: Lisha So on 01-14-2025 Globulin (S) [Mass/Vol] 3.9 g/dL [facility] Hematocrit Auto (Bld) [Volum e fraction]Ordered By: Lisha So on 01-14-2025 Hematocrit (Bld) [Volume fraction] 35.7 % Low 36.0-48.0 [facility] Hemoglobin [Mass/volume] in BloodOrdered By: Lisha So on 01-14-2025 Hemoglobin (Bld) [Mass/Vol] 12.2 g/dL 12.0-16.0 [facility] Laboratory - Chemistry and C hemistry - challengeOrdered By: Lisha So on 01-14-2025 Albumin [Mass/Vol] 3.6 g/dL 3.4-5.0 [facility] ALP [Catalytic activity/Vol] 101 U/L 46-116 [facility] ALT [Catalytic activity/Vol] 26 U/L 14-59 [facility] AST [Catalytic activity/Vol] 18 U/L 15-37 [facility] Bilirubin [Mass/Vol] 0.7 mg/dL 0.2-1.0 [facility] Calcium [Mass/Vol] 9.8 mg/dL 8.5-10.1 [facility] Chloride [Moles/Vol] 100 mmol/L 98-107 [facility] CO2 [Moles/Vol] 33.4 mmol/L High 21.0-32.0 [facility] Creatinine [Mass/Vol] 0.87 mg/dL 0.55-1.02 [facility] GFR/1.73 sq M.predicted MDRD (S/P/Bld) [Vol rate/Area] mL/min/{1.73_m2} >=60 mL/min/1.73 m 2 [facility] Glucose [Mass/Vol] 93 mg/dL 74-106 [facility] Lactate [Moles/Vol] 0.9 mmol/L 0.4-2.0 [facility] Lipase [Catalytic activity/Vol] 26.0 U/L 16.0-77.0 [facility] Potassium [Moles/Vol] 3.5 mmol/L 3.5-5.1 [facility] Protein [Mass/Vol] 7.5 g/dL 6.4-8.2 [facility] Sodium [Moles/Vol] 139 mmol/L 136-145 [facility] Urea nitrogen [Mass/Vol] 22.0 mg/dL High 7.0-18.0 [facility] Urea nitrogen/Creatinine [Mass ratio] 25.3 mg/mg [facility] Laboratory - Chemistry and C hemistry - challengeOrdered By: Christian Pillai on 01-14-2025 Bilirubin Ql (U) Negative NEGATIVE [facility] Glucose (U) [Mass/Vol] Negative NEGATIVE [facility] Ketones Ql (U) Negative NEGATIVE [facility] pH (U) 6.0 [pH] 5.0-9.0 [facility] Specific gravity (U) [Rel density] 1.025 1.005-1.025 [facility] Urobilinogen Qn (U) 0.2 {Michael'U}/dL 0.2-1.0 [facility] Laboratory - Hematology and Cell countsOrdered By: Lisha So on 01-14-2025 Immature granulocytes/100 WBC (Bld) 0.4 % 0.0-0.5 [facility] - Specimen inform ationOrdered By: Christian Pillai on 01-14-2025 Appearance (U) CLEAR CLEAR [facility] Color (U) LT. YELLOW YELLOW [facility] - UrinalysisOrder ed By: Christian Pillai on 01-14-2025 Leukocyte esterase Test strip Ql (U) Negative NEGATIVE [facility] Nitrite Ql (U) Negative NEGATIVE [facility] Protein Ql (U) Negative NEG/TRACE [facility] Leukocytes [#/volume] correc garcía for nucleated erythrocytes in Blood by Automated counOrdered By: Lisha So on 01-14-2025 WBC corrected for nucl RBC Auto (Bld) [#/Vol] 8.4 10 3/uL 4.0-11.0 [facility] Lymphocytes Auto (Bld) [#/Vo l]Ordered By: Lisha So on 01-14-2025 Lymphocytes (Bld) [#/Vol] 1.3 10 3/uL 1.2-3.8 [facility] Lymphocytes/100 WBC Auto (Bl d)Ordered By: Lisha So on 01-14-2025 Lymphocytes/100 WBC (Bld) 15.3 % Low 20.5-60.0 [facility] MCH Auto (RBC) [Entitic mass ]Ordered By: Lisha So on 01-14-2025 MCH (RBC) [Entitic mass] 28.8 pg 26.7-34.0 [facility] MCHC Auto (RBC) [Mass/Vol]Or dered By: Lisha So on 01-14-2025 MCHC (RBC) [Mass/Vol] 34.2 g/dL 29.9-35.[address] [facility] MCV Auto (RBC) [Entitic vol] Ordered By: Lisha So on 01-14-2025 MCV (RBC) [Entitic vol] 84.4 fL 81.0-99.0 [facility] Monocytes Auto (Bld) [#/Vol] Ordered By: Lisha So on 01-14-2025 Monocytes (Bld) [#/Vol] 0.9 10 3/uL High 0.3-0.8 [facility] Monocytes/100 WBC Auto (Bld) Ordered By: Lihsa So on 01-14-2025 Monocytes/100 WBC (Bld) 10.8 % 1.7-12.0 [facility] Neutrophils Auto (Bld) [#/Vo l]Ordered By: Lisha So on 01-14-2025 Neutrophils (Bld) [#/Vol] 6.0 10 3/uL 1.4-6.5 [facility] Neutrophils/100 WBC Auto (Bl d)Ordered By: Lisha So on 01-14-2025 Neutrophils/100 WBC (Bld) 70.8 % 43.0-75.0 [facility] No Panel InformationOrdered By: Lisha So on 01-14-2025 Eosinophils # (Auto) 0.2 10 3/uL 0.0-0.7 [facility] Immature Granulocyte # (Auto) 0.03 10 3/uL 0.00-0.03 [facility] No Panel InformationOrdered By: Christian Pillai on 01-14-2025 Urine Microscopic Review NO [facility] Urine Occult Blood Negative NEGATIVE [facility] Platelet mean volume Auto (B ld) [Entitic vol]Ordered By: Lisha So on 01-14-2025 Platelet mean volume (Bld) [Entitic vol] 9.2 fL Low 9.5-13.5 [facility] Platelets Auto (Bld) [#/Vol] Ordered By: Lisha So on 01-14-2025 Platelets (Bld) [#/Vol] 204 10 3/uL 150-450 [facility] RBC Auto (Bld) [#/Vol]Ordere d By: Lisha So on 01-14-2025 RBC (Bld) [#/Vol] 4.23 10 6/uL 4.20-5.40 [facility] Serum or plasma albumin/glob ulin mass ratioOrdered By: Lisha So on 01-14-2025 Albumin/Globulin [Mass ratio] 0.9 {ratio} [facility] Serum or plasma anion gap de terminationOrdered By: Lisha So on 01-14-2025 Anion gap [Moles/Vol] 9.1 mmol/L [facility] Office Visiton 12-15-2024 Follow-up visit [id number] Pebbles Johnson 1955 F Date Provider Department Center 12/15/2024 Lesley-CYNTHIA BARRY CARD [facility] Family History Problem Relation Age of Onset Emphysema Father Cancer Other Coronary artery disease Other Depression Other Family Status - Relation Status Age at Mother Father Other Level of Service:[address]004 [place] OFFICE/OUTPATIENT ESTABLISHED LOW MDM 20 MIN Normal [facility] Basophils Auto (Bld) [#/Vol] on 11-10-2024 Basophils (Bld) [#/Vol] 0.0 10 3/uL 0.0-0.1 [facility] Basophils/100 WBC Auto (Bld) on 11-10-2024 Basophils/100 WBC (Bld) 0.3 % 0.2-2.0 [facility] Eosinophils/100 WBC Auto (Bl d)on 11-10-2024 Eosinophils/100 WBC (Bld) 5.2 % 0.9-7.0 [facility] Erythrocyte distribution wid th Auto (RBC) [Ratio]on 11-10-2024 Erythrocyte distribution width (RBC) [Ratio] 14.0 % 11.0-15.0 [facility] Estimated glomerular filtrat ion rate (GFR) non- Americanon 11-10-2024 GFR/1.73 sq M.predicted among non-blacks MDRD (S/P/Bld) [Vol rate/Area] mL/min/{1.73_m2} >=60 mL/min/1.73 m 2 [facility] Globulin Calc (S) [Mass/Vol] on 11-10-2024 Globulin (S) [Mass/Vol] 3.5 g/dL [facility] Hematocrit Auto (Bld) [Volum e fraction]on 11-10-2024 Hematocrit (Bld) [Volume fraction] 38.2 % 36.0-48.0 [facility] Hemoglobin [Mass/volume] in Bloodon 11-10-2024 Hemoglobin (Bld) [Mass/Vol] 12.6 g/dL 12.0-16.0 [facility] Laboratory - Chemistry and C hemistry - challengeon 11-10-2024 Albumin [Mass/Vol] 3.7 g/dL 3.4-5.0 [facility] ALP [Catalytic activity/Vol] 92 U/L 46-116 [facility] ALT [Catalytic activity/Vol] 36 U/L 14-59 [facility] AST [Catalytic activity/Vol] 28 U/L 15-37 [facility] Bilirubin [Mass/Vol] 0.4 mg/dL 0.2-1.0 [facility] Calcium [Mass/Vol] 9.7 mg/dL 8.5-10.1 [facility] Chloride [Moles/Vol] 104 mmol/L 98-107 [facility] CO2 [Moles/Vol] 32.9 mmol/L High 21.0-32.0 [facility] Creatinine [Mass/Vol] 0.80 mg/dL 0.55-1.02 [facility] GFR/1.73 sq M.predicted MDRD (S/P/Bld) [Vol rate/Area] mL/min/{1.73_m2} >=60 mL/min/1.73 m 2 [facility] Glucose [Mass/Vol] 96 mg/dL 74-106 [facility] Potassium [Moles/Vol] 4.0 mmol/L 3.5-5.1 [facility] Protein [Mass/Vol] 7.2 g/dL 6.4-8.2 [facility] Sodium [Moles/Vol] 143 mmol/L 136-145 [facility] Urea nitrogen [Mass/Vol] 21.0 mg/dL High 7.0-18.0 [facility] Urea nitrogen/Creatinine [Mass ratio] 26.3 mg/mg [facility] Laboratory - Hematology and Cell countson 11-10-2024 Immature granulocytes/100 WBC (Bld) 0.5 % 0.0-0.5 [facility] Leukocytes [#/volume] correc garcía for nucleated erythrocytes in Blood by Automated counon 11-10-2024 WBC corrected for nucl RBC Auto (Bld) [#/Vol] 6.2 10 3/uL 4.0-11.0 [facility] Lymphocytes Auto (Bld) [#/Vo l]on 11-10-2024 Lymphocytes (Bld) [#/Vol] 1.2 10 3/uL 1.2-3.8 [facility] Lymphocytes/100 WBC Auto (Bl d)on 11-10-2024 Lymphocytes/100 WBC (Bld) 19.2 % Low 20.5-60.0 [facility] MCH Auto (RBC) [Entitic mass ]on 11-10-2024 MCH (RBC) [Entitic mass] 28.3 pg 26.7-34.0 [facility] MCHC Auto (RBC) [Mass/Vol]on 11-10-2024 MCHC (RBC) [Mass/Vol] 33.0 g/dL 29.9-35.2 [facility] MCV Auto (RBC) [Entitic vol] on 11-10-2024 MCV (RBC) [Entitic vol] 85.8 fL 81.0-99.0 [facility] Monocytes Auto (Bld) [#/Vol] on 11-10-2024 Monocytes (Bld) [#/Vol] 0.7 10 3/uL 0.3-0.8 [facility] Monocytes/100 WBC Auto (Bld) on 11-10-2024 Monocytes/100 WBC (Bld) 11.9 % 1.7-12.0 [facility] Neutrophils Auto (Bld) [#/Vo l]on 11-10-2024 Neutrophils (Bld) [#/Vol] 3.9 10 3/uL 1.4-6.5 [facility] Neutrophils/100 WBC Auto (Bl d)on 11-10-2024 Neutrophils/100 WBC (Bld) 62.9 % 43.0-75.0 [facility] No Panel Informationon 11-10 Eosinophils # (Auto) 0.3 10 3/uL 0.0-0.7 [facility] Immature Granulocyte # (Auto) 0.03 10 3/uL 0.00-0.03 [facility] Office Visiton 11-10-2024 Follow-up visit [id number] Pebbles Johnson 1955 F Date Provider Department Center 11/10/2024 [id number], CYNTHIA CARD [facility] Family History Problem Relation Age of Onset Cancer Other Coronary artery disease Other Depression Other Family Status - Relation Status Age at Other Level of Service:[address] [place] OFFICE/OUTPATIENT ESTABLISHED MOD MDM 30 MIN Normal [facility] Platelet mean volume Auto (B ld) [Entitic vol]on 11-10-2024 Platelet mean volume (Bld) [Entitic vol] 9.3 fL Low 9.5-13.5 [facility] Platelets Auto (Bld) [#/Vol] on 11-10-2024 Platelets (Bld) [#/Vol] 244 10 3/uL 150-450 [facility] RBC Auto (Bld) [#/Vol]on 05- 29-2025 RBC (Bld) [#/Vol] 4.45 10 6/uL 4.20-5.40 [facility] Serum or plasma albumin/glob ulin mass ratioon 11-10-2024 Albumin/Globulin [Mass ratio] 1.1 {ratio} [facility] Serum or plasma anion gap de terminationon 11-10-2024 Anion gap [Moles/Vol] 10.1 mmol/L [facility] Office Visiton 10-18-2024 Follow-up visit [id number] Pebbles Johnson 1955 F Date Provider Department Center 10/18/2024 [id number], CYNTHIA CARD [facility] Family History Problem Relation Age of Onset Cancer Other Coronary artery disease Other Depression Other Family Status - Relation Status Age at Other Level of Service:[address] [place] OFFICE/OUTPATIENT ESTABLISHED LOW MDM 20 MIN Normal [facility] Magnetic resonance imaging r eportOrdered By: Karan Merrill on 09-06-2024 Study report [facility] [place] [address] MRI Report Signed Patient: Pebbles Johnson MR#: [id number] : 1955 Acct:[id number] Age/Sex: 69 / F ADM Date: 5 Loc: Room: Type: [facility] Attending Dr: Mustapha Mccauley DO Copies to: Mustapha Mccauley DO~ Ordering Provider: Mustapha Mccauley DO Date of Service: 09/06/24 MR/MR lumbar spine wo con: R29.898 ([id number]) XR/XR pre/post mri xray: R29.898 MRI lumbar spine without contrast/2 views of the lumbar spine INDICATION: Weakness of both lower extremities COMPARISON: None FINDINGS: X-rays of the lumbar spine: Mild dextrocurvature of the lumbar spine mild levocurvature of the lower thoracic spine. There is 5 mm anterolisthesis L4 on L5. 4 mm anterolisthesis L5 on S1. Moderate facet arthropathy L4-S1. Kwes-kd-ighfftns facet arthropathy L3-4. Lumbar vertebral heights are [...] canal narrowing. L3-4: Broad-based disc bulge with sgku-rj-okazahcw facet arthropathy. Phlv-ti-comkbpyd central canal stenosis. Mild/moderate right neural from narrowing. Moderate left neural foraminal narrowing. L4-5: Circumferential disc bulge with moderate to severe facet arthropathy. Slight uncovering the posterior disc. There is crowding of both subarticular zones, correlate with L5 radiculopathy. Mild central canal narrowing. Boda-fy-jqsskaaa neural foraminal narrowing. L5-S1: Moderate severe right [...] Karan Merrill M.D.09/06/2024 5:09 PM Dictation Location: [place] [address] Transcribed By: [facility] 09/06/241708 Dictated By: Karan Merrill MD 09/06/241654 Signed By: 09/06/241708 [facility] Work Phone: XR pre/post mri xrayon 09-06 XR pre/post mri xray [facility] [place] [address] MRI Report Signed Patient: Pebbles Johnson MR#: [id number] : 1955 Acct:[id number] Age/Sex: 69 / F ADM Date: 09/06/24 Loc: MR Room: Type: [facility] Attending Dr: Mustapha Mccauley DO Copies to: Mustapha Mccauley DO Ordering Provider: Mustapha Mccauley DO Date of Service: 09/06/24 MR/MR lumbar spine wo con: R29.898 ([id number]) XR/XR pre/post mri xray: R29.898 MRI lumbar spine without contrast/2 views of the lumbar spine INDICATION: Weakness of both lower extremities COMPARISON: None FINDINGS: X-rays of the lumbar spine: Mild dextrocurvature of the lumbar spine mild levocurvature of the lower thoracic spine. There is 5 mm anterolisthesis L4 on L5. 4 mm anterolisthesis L5 on S1. Moderate facet arthropathy L4-S1. Zbxn-gr-vtfgawnm facet arthropathy L3-4. Lumbar vertebral heights are [...] canal narrowing. L3-4: Broad-based disc bulge with rfbp-ri-rferzphh facet arthropathy. Sldd-di-emexkaok central canal stenosis. Mild/moderate right neural from narrowing. Moderate left neural foraminal narrowing. L4-5: Circumferential disc bulge with moderate to severe facet arthropathy. Slight uncovering the posterior disc. There is crowding of both subarticular zones, correlate with L5 radiculopathy. Mild central canal narrowing. Uusl-rx-dcaacziz neural foraminal narrowing. L5-S1: Moderate severe right [...] Karan Merrill M.D.09/06/2024 5:09 PM Dictation Location: [place] [address] Transcribed By: [facility] 09/06/241708 Dictated By: Karan Merrill MD 09/06/241654 Signed By: 09/06/241708 Normal [facility] EMG 2 Extremitieson 05-17-20 24 S1 radiculopathy, bilaterally, mild [facility] NVC 9-10 Nerveson 05-17-2024 S1 radiculopathy, bilaterally, mild [facility] Ambulatory Visit Summaryon 1 07-03-2023 Ambulatory Visit Summary Ambulatory Visit Summary PEBBLES JOHNSON :1955 Visit Date:05/03/2024 Ambulatory Visit Instructions Your Diagnosis Unspecified urethral stricture, female Mixed incontinence Vaginal atrophy Asymptomatic microscopic hematuria Your Care Team Attending Physician - TONE RAMIREZ, SARANYA Smith Primary Care Physician - JEFFY RAMOS MD [...] of your condition (more content not included)... [facility] Reminderson 05-03-2024 Reminders Reminders From: [place] To: EU - Administrative; Sent: 05/03/2024 16:11:34 EST Show up: 10/13/2024 16:11:00 EDT Subject: 1 yr f/u Due Date/Time: 04/29/2025 16:11:00 EST Reminder/Recall Patient needs an appointment with ERNESTINE for a 1 yr F/U [facility] Urology Office/Clinic Noteon 05-03-2024 Urology Office/Clinic Note [...] E&M of Est. Patient Moderate 30-39 Min 29705 Influenza immunization status assessed 1030F Medication list [...] Urnls Dip Stick Auto w/o Microscopy POC 94811 2. Mixed incontinence (N39.46: Mixed incontinence) S/p urodynamics 07/28/23. Failed Vesicare 5mg in the past. No CHAY seen on cysto/UD 02/13/24. Posterior laxity. No true prolapse. 10/16/23: Still wearing a panty liner, changes 1-2x daily. Leakage has improved since procedure. Does take a water pill. TODAY: BBSQ 15 good control. Sx not bothersome enough to warrant medication at this time. Ordered: Body Mass Index (BMI) documented 3008F Current tobacco non-user 1036F Depression Screening Negative 3352F E&M of Est. Patient Moderate 30-39 Min 65583 Influenza immunization status assessed 1030F Medication list [...] Urnls Dip Stick Auto w/o Microscopy POC 65878 3. Vaginal atrophy (N95.2: Postmenopausal atrophic vaginitis) [...] E&M of Est. Patient Moderate 30-39 Min 47376 Influenza immunization status assessed 1030F Medication list [...] Urnls Dip Stick Auto w/o Microscopy POC 39139 4. Asymptomatic microscopic hematuria (R31.21: Asymptomatic microscopic [...] E&M of Est. Patient Moderate 30-39 Min 57114 Influenza immunization status assessed 1030F Medication list documented in medical record 1159F Most recent diastolic blood pressure <80 mm Hg 3078F Patient screen for fall risk: no falls in last year or 1 fall with no injury in last year 1101F Review of all meds by a prescribing practitione (more content not included)... Normal [facility] Comment on above: Result Comment: Elec tronically Signed By: SARANYA WAYNE PA-C\.br\Date and Time Signed: 05/03/24 15:02 EST Office Visiton 02-16-2024 Follow-up visit [id number] Pebbles Johnson 1955 F Date Provider Department Center 02/16/2024 [facility]ley[facility]CYNTHIA [facility] Family History Problem Relation Age of Onset Cancer Other Coronary artery disease Other Depression Other Family Status - Relation Status Age at Other Level of Service:[address] [place] OFFICE/OUTPATIENT ESTABLISHED MOD MDM 30 MIN Normal [facility] Ambulatory Visit Summaryon 0 10-16-2023 Ambulatory [...] with MARYAM BEAVERS, OLEKSANDR Topete When: Where: [address] [place], [place] [id number]- Medications What How Much When Instructions New estradiol topical (estradiol 0.1 mg/ g Vag Crm) 1 Gram Vaginal As Directed Refills: 4 Apply with plunger 2x per week. Also pply around outer urethra with finger. Pickup at [facility] Unchanged aspirin (aspirin 81 mg oral [...] physician if questions or concerns Pharmacy Information [facility]: [address] [place], [place] [phone] Allergies sulfamethoxazole (....) Problems Ongoing - Any [...] symptoms? Sympto (more content not included)... Normal [facility] Patient Educationon 10-16-19 Patient Education Obstetrics [...] to the vagina. General instructions ? Take tzlj-vrt-nmginki and prescription medicines only as told by [...] a cot (more content not included)... Normal [facility] Urology Office/Clinic Noteon 10-16-2023 Urology Office/Clinic [...] Information MARYAM BEAVERS, Jean Paul Burton, URL [address] [place] [address]- Additional Instructions: 6 months Patient Education Vaginitis [...] virus vaccine, inactivated 03/22/2022 Recorded SARS-CoV-2 (COVID-19) [id number] 03/22/2022 Recorded SARS-CoV-2 (COVID-19) mRNA BNT-162b2 vax 05/23/2021 Recorded influenza virus vaccine, inactivated 04/01/2021 Recorded SARS-CoV-2 (COVID-19) mRNA (more content not included)... [facility] Comment on above: Result Comment: Elec tronically Signed By: Jean Paul URBAN MD\.br\Date and Time Signed: 10/16/23 11:13 EDT\.br\Electronically Co-Signed By: Katiuska Hobbs.br\Date and Time Co-Signed: 10/16/23 11:11 EDT Consent for Procedure/Surger yon 07-28-2023 Consent for Procedure/Surgery [id number]# 1.00TIFF [facility] Consent for Treatmenton 07-16 Consent for Treatment [id number]#1 .00TIFF [facility] IntraOperative Documentson 0 07-28-2023 IntraOperative Documents [id number]# 1.00TIFF [facility] IntraOperative Documents [id number]# 1.00TIFF [facility] Main [place] Intraoperative Recor don 07-28-2023 Main OR Intraoperative Record IntraOp Document Type FTURO Summary Primary Physician: Jean Paul URBAN MD Finalized Date/Time: 07/28/23 11:03:27 Pt. Name: PEBBLES JOHNSON Dioni/Sex: 1955 Female Med Rec #: [id number] Physician: Jean Paul URBAN MD Financial #: [id number] Pt. Type: O Room/Bed: / Admit/Disch: 07/28/23 [...] Reina Hurtado Role Performed Surgeon - Primary Warp Hanger - Primary Scrub - Primary Time In 07/28/23 10:50:00 07/28/23 10:50:00 07/28/23 10:50:00 Time Out 07/28/23 11:05:00 07/28/23 11:05:00 07/28/23 11:05:00 Procedure CYSTOSCOPY LOCAL WITH CYSTOSCOPY LOCAL WITH CYSTOSCOPY LOCAL WITH URETHRAL DILATION(.) URETHRAL DILATION(.) URETHRAL DILATION(.) Comments Last Modified By: Juan C RN, CNOR, Juan C RN, CNOR, Juan C RN, CNOR, Genesis 07/28/23 Genesis 07/28/23 Genesis 07/28/23 11:01:55 11:01:55 11:01:55 Surgical Procedures FTURO Entry 1 Procedure Description Procedure CYSTOSCOPY LOCAL WITH Modifiers . URETHRAL DILATION Surgeon Description CYSTO UD Primary Procedure Yes Primary Surgeon Jean Paul URBAN MD 07/28/23 10:54:00 Stop 07/28/23 11:01:00 Anesthesia Type [...] As Preop No HEMATURIA Postop Diagnosis urethral [id number] Outcomes Met? Yes Last Modified By: KAY [...] KAY Irizarry RN, Ruthann 07/28/23 11:03 Normal [facility] Main OR Preoperative Recordo n 07-28-2023 Main OR Preoperative Record Holding Area Document Type FTURO Summary Primary Physician: Jean Paul URBAN MD Finalized Date/Time: 07/28/23 10:57:37 Pt. Name: PEBBLES JOHNSON /Sex: 1955 Female Med Rec #: [id number] Physician: Jean Paul URBAN MD Financial #: [id number] Pt. Type: O Room/Bed: / Admit/Disch: 07/28/23 [...] Complaints of Pain: No Skin Integrity Intact, Rulo, Warm, & Dry Vitals - EU Blood Pressure 194/80 Pulse 63 bpm Respirations 18 br/min SPO2 99 % RN Reviewed Yes Last Modified By: KAY Irizarry RN, Ruthann 07/28/23 10:57:35 Finalized By: KAY Irizarry RN, Ruthann Document Signatures Signed By: Starr Villa LPN 07/28/23 10:24 KAY Irizarry RN, Ruthann 07/28/23 10:57 Normal [facility] Operative Reporton Operative Report Patient: PEBBLES [...] urine. The Urethra was dilated to: 30 Malaysian w/ sounds. Devices Implanted: None. Removal: Cystoscope is removed, The patient tolerated it well. Postoperative Information Discharge: Patient is discharged home with antibiotic coverage, Follow up arranged. [facility] Comment on above: Result Comment: Elec tronically Signed By: Jean Paul URBAN MD\.br\Date and Time Signed: 07/28/23 11:10 EST COVID + FLU Quick Testingon 07-18-2023 SARS-CoV-2 (COVID-19) RNA ALEXA+probe Ql (Unsp spec) Negative [employer] Other COVID + FLU Quick Testing Negative [employer] Other Formson 06-30-2023 Forms [id number]#1 .00TIFF [facility] Screenson 06-30-2023 Screens [id number]# 1.00TIFF [facility] Ambulatory Visit Summaryon 0 06-29-2023 Ambulatory Visit Summary PEBBLES JOHNSON :1955 Visit Date:06/29/2023 Ambulatory Visit Instructions Your Diagnosis Mixed incontinence Incontinence without sensory awareness Asymptomatic microscopic hematuria History of UTI Tests Performed Urnls Dip Stick Auto w/o Microscopy POC 80996 Your Care Team Attending Physician - MARYAM [...] [facility] [address], [place] [phone] Medications What How Much When Instructions New ciprofloxacin (Cipro 500 mg Tab) 1 Tablets By Mouth Every day take one tab day before procedure and one tab after procedure Pickup at [id number] Unchanged aspirin (aspirin 81 mg oral tablet) [...] physician if questions or concerns Pharmacy Information [id number]: [address] [place], [place] [phone] Test Results Urnls Dip Stick Auto w/o Microscopy POC 67848 (06/29/2023) Bilirubin Urine Dipstick - Negative Blood Urine Dipstick - 1+ Small Leukocytes Urine Dipstick - Negative Nitrite Urine Dipstick - Negative Protein Urine Dipstick - Trace Specific [place] Urine Dipstick - >=1.030 Urine Appearance Urine [...] diabetes med (more content not included)... Normal [facility] Patient Educationon 06-29-19 Patient Education Urology Urodynamic [...] including vitamins, herbs, eye drops, creams, and hhvw-wsj-cqybbvh medicines. ? Whether you are or may [...] be (more content not included)... Normal [facility] Urology Office/Clinic Noteon 06-29-2023 Urology [...] URL [facility] [address] , [place] [phone] Additional Instructions: sched cysto/urodynamics Patient Education Urodynamic [...] Oral, Daily (more content not included)... Normal [facility] Comment on above: Result Comment: Elec tronically Signed By: Jean Paul URBAN MD\.br\Date and Time Signed: 06/29/23 11:59 EST\.br\Electronically Co-Signed By: Lucia Hensley\.br\Date and Time Co-Signed: 06/29/23 11:57 EST MG MAMM SCREEN 3D FELICIA CADon 09-24-2022 MG MAMM SCREEN 3D FELICIA CAD Patient: PEBBLES JOHNSONVidal Exam Date: 09/24/2022 : 1955 Gender:F Ordering : DR JEFFY RAMOS M.D. Admission #: [id number] Family : Order #: [id number] CLICK HERE TO VIEW EXAM RADIOLOGY REPORT [...] kidney cancer at age 31. LOCATION: [facility] BREAST COMPOSITION: Heterogeneously dense,which may [...] M.D. on 09/24/2022 at 13:25 Normal [facility] Urinalysis - DIPSTICKon 09-13 Appearance (U) clear [employer] Other Bilirubin Ql (U) small [employer] Other Color (U) yellow [employer] Other Glucose Ql (U) Negative [employer] Other Hemoglobin Ql (U) Negative [employer] Other Ketones Ql (U) off chart [employer] Other Leukocyte esterase Test strip Ql (U) Negative [employer] Other Nitrite Ql (U) Negative [employer] Other pH (U) 5.0 [pH] [employer] Other Protein Ql (U) Negative [employer] Other Specific gravity (U) [Rel density] 1.010 [employer] Other Urobilinogen (U) [Mass/Vol] 0.2 mg/dL [employer] Other Urinalysis - DIPSTICK [employer] Other LIPID PROFILEon 07-05-2022 CHOL-HDL RATIO NORM SEE BELOW Normal [facility] Comment on above: Result Comment: 3.3 - 4.4 LOW RISK 4.4 - 7.1 AVERAGE RISK 7.1 - 11.0 MODERATE RISK >11.0 HIGH RISK Performed By: #### L IPID #### [facility] [address] [place] [address] [address] Carlos Barlow Cholesterol [Mass/Vol] 181 mg/dL Normal <=200 Th [facility] Comment on above: Performed By: #### L IPID #### [facility] [address] [place] [address] [address] Carlos Barlow Cholesterol in HDL [Mass/Vol] 63 mg/dL Critically high 40-60 [facility] Comment on above: Performed By: #### L IPID #### [facility] [address] [place] [address] [address] Carlos Barlow Cholesterol in LDL [Mass/Vol] 88.0 mg/dL Normal [facility] Comment on above: Performed By: #### L IPID #### [facility] [address] [place] [address] [address] Carlos Barlow Cholesterol.total/Sharita sterol in HDL [Mass ratio] 2.9 {ratio} Normal [facility] Comment on above: Performed By: #### L IPID #### [facility] [address] [place] [address] [address] Carlos Barlow HDL NORMAL > or = 60 mg/dl - LO W CARDIOVASCULAR RISK <40 mg/dl - HIGH CARDIOVASCULAR RISK Normal [facility] Comment on above: Performed By: #### L IPID #### [facility] [address] [place] [address] [address] Carlos Barlow LDL CALC NORMAL SEE BELOW Normal [facility] Comment on above: Result Comment: <100 mg/dl OPTIMAL 100 - 129 mg/dl NEAR OR ABOVE OPTIMAL 130 - 159 mg/dl BORDERLINE HIGH 160 - 189 mg/dl HIGH >190 mg/dl VERY HIGH Performed By: #### L IPID #### [facility] [address] [place] [address] [address] Carlos Barlow Triglyceride [Mass/Vol] 150 mg/dL Normal <=[address] [facility] Comment on above: Performed By: #### L IPID #### [facility] [address] [place] [address] [address] Carlos Barlow VLDL CALC 30.0 mg/dL Normal [facility] Comment on above: Performed By: #### L IPID #### [facility] [address] [place], [place] [address] Dr. Carlos Barlow XR CHEST 1 Von [...] by: RO BONILLA Date: 2022-05-05 06:41 Normal [facility] XR NECK SOFT TISSUEon 2021 XR [...] by: RO BONILLA Date: 2022-05-05 06:42 Normal [facility] XR LSPINE MIN 4 VIEWSon 03-15 [...] by: KIRK CESAR Date: 2022-04-01 06:49 Normal [facility] LIPID PROFILEon 03-10-2022 CHOL-HDL RATIO NORM SEE BELOW Normal [facility] Comment on above: Result Comment: 3.3 - 4.4 LOW RISK 4.4 - 7.1 AVERAGE RISK 7.1 - 11.0 MODERATE RISK >11.0 HIGH RISK Performed By: #### B MP, LIPID, LIVER #### [facility] [address] [place] [address] [address] Carlos Barlow Cholesterol [Mass/Vol] 186 mg/dL Normal <=200 Th [facility] Comment on above: Performed By: #### B MP, LIPID, LIVER #### [facility] [address] [place] [address] [address] Carlos Barlow Cholesterol in HDL [Mass/Vol] 61 mg/dL Critically high 40-60 [facility] Comment on above: Performed By: #### B MP, LIPID, LIVER #### [facility] [address] [place] [address] [address] Carlos Barlow Cholesterol in LDL [Mass/Vol] 90.4 mg/dL Normal [facility] Comment on above: Performed By: #### B MP, LIPID, LIVER #### [facility] [address] [place] [address] [address] Carlos Barlow Cholesterol.total/Sharita sterol in HDL [Mass ratio] 3.0 {ratio} Normal [facility] Comment on above: Performed By: #### B MP, LIPID, LIVER #### [facility] [address] [place] [address] [address] Carlos Barlow HDL NORMAL > or = 60 mg/dl - LO W CARDIOVASCULAR RISK <40 mg/dl - HIGH CARDIOVASCULAR RISK Normal [facility] Comment on above: Performed By: #### B MP, LIPID, LIVER #### [facility] [address] [place] [address] [address] Carlos Barlow LDL CALC NORMAL SEE BELOW Normal [facility] Comment on above: Result Comment: <100 mg/dl OPTIMAL 100 - 129 mg/dl NEAR OR ABOVE OPTIMAL 130 - 159 mg/dl BORDERLINE HIGH 160 - 189 mg/dl HIGH >190 mg/dl VERY HIGH Performed By: #### B MP, LIPID, LIVER #### [facility] [address] [place] [address] [address] Carlos Barlow Triglyceride [Mass/Vol] 173 mg/dL Critically high <=150 [facility] Comment on above: Performed By: #### B MP, LIPID, LIVER #### [facility] [address] [place] [address] [address] Carlos Barlow VLDL CALC 34.6 mg/dL Normal [facility] Comment on above: Performed By: #### B MP, LIPID, LIVER #### [facility] [address] [place] [address] Dr. Carlos Barlow LIVER PROFILEon 03-10-2022 Albumin [Mass/Vol] 3.6 g/dL Normal 3.4-5.[address] [facility] Comment on above: Performed By: #### B MP, LIPID, LIVER #### [facility] [address] [place] [address] Dr. Carlos Barlow Albumin/Globulin [Mass ratio] 1.1 {ratio} Normal [facility] Comment on above: Performed By: #### B MP, LIPID, LIVER #### [facility] [address] [place] [address] [address] Carlos Barlow ALP [Catalytic activity/Vol] 92 U/L Normal 46-[address] [facility] Comment on above: Performed By: #### B MP, LIPID, LIVER #### [facility] [address] [place] [address] Dr. Carlos Barlow ALT [Catalytic activity/Vol] 20 U/L Normal 14-59 [facility] Comment on above: Performed By: #### B MP, LIPID, LIVER #### [facility] [address] [place] [address] [address] Carlos Barlow AST [Catalytic activity/Vol] 16 U/L Normal 15-37 [facility] Comment on above: Performed By: #### B MP, LIPID, LIVER #### [facility] [address] [place] [address] [address] Carlos Barlow BILI, CONJUGATED 0.1 mg/dL Normal 0.0-0.2 [facility] Comment on above: Performed By: #### B MP, LIPID, LIVER #### [facility] [address] [place] [address] [address] Carlos Barlow Bilirubin [Mass/Vol] 0.3 mg/dL Normal 0.2-1.0 [facility] Comment on above: Performed By: #### B MP, LIPID, LIVER #### [facility] [address] [place] [address] [address] Carlos Barlow Globulin (S) [Mass/Vol] 3.4 g/dL Normal [facility] Comment on above: Performed By: #### B MP, LIPID, LIVER #### [facility] [address] [place] [address] [address] Carlos Barlow Protein [Mass/Vol] 7.0 g/dL Normal 6.4-8.2 [facility] Comment on above: Performed By: #### B MP, LIPID, LIVER #### [facility] [address] [place] [address] [address] Carlos Barlow PROF CHEM 8 (BAS METB)on Anion gap [Moles/Vol] 12.0 mmol/L Normal [facility] Comment on above: Performed By: #### B MP, LIPID, LIVER ####[facility] [address] [place] [address]Dr. Carlos Barlow Calcium [Mass/Vol] 9.6 mg/dL Normal 8.5-10.[address] [facility] Comment on above: Performed By: #### B MP, LIPID, LIVER ####[facility] [address] [place] [address]Dr. Carlos Barlow Chloride [Moles/Vol] 105 mmol/L Normal 98-107 [facility] Comment on above: Performed By: #### B MP, LIPID, LIVER ####[facility] [address] [place] [id number]. Carlos Barlow CO2 [Moles/Vol] 26.5 mmol/L Normal 21.0-32.0 [facility] Comment on above: Performed By: #### B MP, LIPID, LIVER ####[facility] [address] [place] [id number]. Carlos Barlow Creatinine [Mass/Vol] 0.89 mg/dL Normal 0.55-1.02 [facility] Comment on above: Performed By: #### B MP, LIPID, LIVER ####[facility] [address] [place] [address]Dr. Carlos Barlow EGFR-AF CZECH >60 Normal >=60 [facility] Comment on above: Performed By: #### B MP, LIPID, LIVER ####[facility] [address] [place] [id number]. Carlos Barlow EGFR-NON AF CZECH >60 Normal >=60 [facility] Comment on above: Performed By: #### B MP, LIPID, LIVER ####[facility] [address] [place] [id number]. Carlos Barlow Glucose [Mass/Vol] 116 mg/dL Critically high 74-106 [facility] Comment on above: Performed By: #### B MP, LIPID, LIVER ####[facility] [address] [place] [id number]. Carlos Barlow Potassium [Moles/Vol] 4.0 mmol/L Normal 3.5-5.1 [facility] Comment on above: Performed By: #### B MP, LIPID, LIVER ####[facility] [address] [place] [id number]. Carlos Barlow Sodium [Moles/Vol] 139 mmol/L Normal 136-[address] [facility] Comment on above: Performed By: #### B MP, LIPID, LIVER ####[facility] [address] [place] [id number]. Carlos Barlow Urea nitrogen [Mass/Vol] 24.0 mg/dL Critically high 7.0-18.0 [facility] Comment on above: Performed By: #### B MP, LIPID, LIVER ####[facility] [facility] [address] [place] [address]Dr. Carlos Barlow Urea nitrogen/Creatinine [Mass ratio] 26.9 mg/mg Normal [facility] Comment on above: Performed By: #### B MP, LIPID, LIVER ####[facility] [address] [place], [place] [address]Dr. Carlos Barlow CBC AUTO DIFFon 02-19-2022 BASO # 0.0 103/ul Normal 0.0-0.1 [facility] Comment on above: Performed By: #### C BC ####[facility] Ul[address] [place], [place] [address]Dr. Carlos Barlow Basophils/100 WBC (Bld) 0.4 % Normal 0.2-2.0 [facility] Comment on above: Performed By: #### C BC ####[facility] [address] [place], [place] [address]DrVidal Barlow EO # 0.2 103/ul Normal 0.0-0.7 [facility] Comment on above: Performed By: #### C BC ####[facility] V[address] [place], [place] [address]DrVidal Barlow Eosinophils/100 WBC (Bld) 4.1 % Normal 0.9-7.0 [facility] Comment on above: Performed By: #### C BC ####[facility] N[address] [place], [place] [address]Dr. Carlos Barlow Erythrocyte distribution width (RBC) [Ratio] 13.2 % Normal 11.0-15.0 [facility] Comment on above: Performed By: #### C BC ####[facility] Em[address] [place], [place] [address]DrVidal Barlow Hematocrit (Bld) [Volume fraction] 37.9 % Normal 36.0-48.0 [facility] Comment on above: Performed By: #### C BC ####[facility] Mgwapgulyr[address] [place], [place] [address]Dr. Carlos Barlow Hemoglobin (Bld) [Mass/Vol] 12.7 g/dL Normal 12.0-16.[address] [facility] Comment on above: Performed By: #### C BC ####[facility] [address] [place] [address]Dr. Carlos Barlow IG # 0.02 10e3/ul Normal 0.00-0.[address] [facility] Comment on above: Performed By: #### C BC ####[facility] [address] [place] [address]Dr. Carlos Barlow IG % 0.4 % Normal 0.0-0.[address] [facility] Comment on above: Performed By: #### C BC ####[facility] R[address]neec[address] [place], [place] [address]DrVidal Barlow LYMPH # 0.9 103/ul Critically low 1.2-3.8 [facility] Comment on above: Performed By: #### C BC ####[facility] Lrvbj[address]gb[address] [place], [place] [address]Dr. Carlos Barlow Lymphocytes/100 WBC (Bld) 17.7 % Critically low 20.5-60.[address] [facility] Comment on above: Performed By: #### C BC ####[facility] W[address] [place], [place] [address]DrVidal Barlow MANUAL DIFF REQ NO Normal [facility] Comment on above: Performed By: #### C BC ####[facility] U[address]welt[address] [place], [place] [address]DrVidal Barlow MCH (RBC) [Entitic mass] 28.4 pg Normal 26.7-34.[address] [facility] Comment on above: Performed By: #### C BC ####[facility] [address] [place], [place] [address]Dr. Carlos Barlow MCHC (RBC) [Mass/Vol] 33.5 g/dL Normal 29.9-35.[address] [facility] Comment on above: Performed By: #### C BC ####[facility] [address] [place], [place] [address]Dr. Carlos Barlow MCV (RBC) [Entitic vol] 84.8 fL Normal 81.0-99.0 [facility] Comment on above: Performed By: #### C BC ####[facility] [address] [place], [place] [address]DrVidal Barlow MONO # 0.7 103/ul Normal 0.3-0.8 [facility] Comment on above: Performed By: #### C BC ####[facility] F[address]vrgczlt[address] [place], [place] [address]DrVidal Carlos Barlow Monocytes/100 WBC (Bld) 13.4 % Critically high 1.7-12. [address] [facility] Comment on above: Performed By: #### C BC ####[facility] [address] [place], [place] [address]DrVidal Carlos Barlow NEUT # 3.3 103/ul Normal 1.4-6.5 [facility] Comment on above: Performed By: #### C BC ####[facility] [address] [place], [place] [address]DrVidal Carlos Barlow Neutrophils/100 WBC (Bld) 64.0 % Normal 43.0-75.0 [facility] Comment on above: Performed By: #### C BC ####[facility] C[address]ds[address] [place], [place] [address]DrVidal Carlos Barlow Platelet mean volume (Bld) [Entitic vol] 10.5 fL Normal 9.5-13.[address] [facility] Comment on above: Performed By: #### C BC ####[facility] [address] [place], [place] [address]DrVidal Carlos Barlow PLT 252 103/ul Normal 150-[address] [facility] Comment on above: Performed By: #### C BC ####[facility] Ir[address]ncbi[address] [place], [place] [address]DrVidal Carlos Cain RBC 4.47 106/ul Normal 4.20-5.[address] [facility] Comment on above: Performed By: #### C BC ####[facility] [address] [place], [place] [address]Dr. Carlos Barlow WBC 5.2 103/ul Normal 4.0-11.0 [facility] Comment on above: Performed By: #### C BC ####[facility] [address] [place], [place] [address]FeDr. Carlos Barlow LIPID PROFILEon 02-19-2022 CHOL-HDL RATIO NORM SEE BELOW Normal [facility] Comment on above: Result Comment: 3.3 - 4.4 LOW RISK 4.4 - 7.1 AVERAGE RISK 7.1 - 11.0 MODERATE RISK >11.0 HIGH RISK Performed By: #### C MP, LIPID #### [facility] [address] [place], [place] [address] Dr. Carlos Barlow Cholesterol [Mass/Vol] 241 mg/dL Critically high <=200 [facility] Comment on above: Performed By: #### C MP, LIPID #### [facility] [address] [place], [place] [address] Dr. Carlos Barlow Cholesterol in HDL [Mass/Vol] 51 mg/dL Normal 40-60 [facility] Comment on above: Performed By: #### C MP, LIPID #### [facility] [address] [place], [place] [address] Dr. Carlos Barlow Cholesterol in LDL [Mass/Vol] 133.8 mg/dL Normal [facility] Comment on above: Performed By: #### C MP, LIPID #### [facility] [address] [place], [place] [address] Dr. Carlos Barlow Cholesterol.total/Sharita sterol in HDL [Mass ratio] 4.7 {ratio} Normal [facility] Comment on above: Performed By: #### C MP, LIPID #### [facility] [address] [place], [place] [address] Dr. Carlos Barlow HDL NORMAL > or = 60 mg/dl - LO W CARDIOVASCULAR RISK <40 mg/dl - HIGH CARDIOVASCULAR RISK Normal [facility] Comment on above: Performed By: #### C MP, LIPID #### [facility] [address] [place], [place] [address] Dr. Carlos Barlow LDL CALC NORMAL SEE BELOW Normal [facility] Comment on above: Result Comment: <100 mg/dl OPTIMAL 100 - 129 mg/dl NEAR OR ABOVE OPTIMAL 130 - 159 mg/dl BORDERLINE HIGH 160 - 189 mg/dl HIGH >190 mg/dl VERY HIGH Performed By: #### C MP, LIPID #### [facility] [address] [place] [address] Dr. Carlos Barlow Triglyceride [Mass/Vol] 281 mg/dL Critically high <=150 [facility] Comment on above: Performed By: #### C MP, LIPID #### [facility] [address] [place] [address] Dr. Carlos Barlow VLDL CALC 56.2 mg/dL Normal [facility] Comment on above: Performed By: #### C MP, LIPID #### [facility] [address] [place] [address] Dr. Carlos Barlow PROF 14(COMP METB)on 022 Albumin [Mass/Vol] 3.3 g/dL Critically low 3.4-5.[address] [facility] Comment on above: Performed By: #### C MP, LIPID #### [facility] [address] [place] [address] Dr. Carlos Barlow Albumin/Globulin [Mass ratio] 0.9 {ratio} Normal [facility] Comment on above: Performed By: #### C MP, LIPID #### [facility] [address] [place] [address] Dr. Carlos Barlow ALP [Catalytic activity/Vol] 96 U/L Normal 46-[address] [facility] Comment on above: Performed By: #### C MP, LIPID #### [facility] [address] [place] [address] Dr. Carlos Barlow ALT [Catalytic activity/Vol] 21 U/L Normal 14-59 [facility] Comment on above: Performed By: #### C MP, LIPID #### [facility] [address] [place] [address] Dr. Carlos Barlow Anion gap [Moles/Vol] 7.2 mmol/L Normal [facility] Comment on above: Performed By: #### C MP, LIPID #### [facility] [address] [place] [address] Dr. Carlos Barlow AST [Catalytic activity/Vol] 14 U/L Critically low 15-37 [facility] Comment on above: Performed By: #### C MP, LIPID #### [facility] [address] [place] [address] Dr. Carlos Barlow Bilirubin [Mass/Vol] 0.2 mg/dL Normal 0.2-1.0 [facility] Comment on above: Performed By: #### C MP, LIPID #### [facility] [address] [place] [address] Dr. Carlos Barlow Calcium [Mass/Vol] 9.5 mg/dL Normal 8.5-10.[address] [facility] Comment on above: Performed By: #### C MP, LIPID #### [facility] [address] [place] [address] Dr. Carlos Barlow Chloride [Moles/Vol] 103 mmol/L Normal 98-107 [facility] Comment on above: Performed By: #### C MP, LIPID #### [facility] [address] [place] [address] Dr. Carlos Barlow CO2 [Moles/Vol] 32.1 mmol/L Critically high 21.0-32.0 [facility] Comment on above: Performed By: #### C MP, LIPID #### [facility] [address] [place] [address] Dr. Carlos Barlow Creatinine [Mass/Vol] 0.80 mg/dL Normal 0.55-1.02 [facility] Comment on above: Performed By: #### C MP, LIPID #### [facility] [address] [place] [address] Dr. Carlos Barlow EGFR-AF CZECH >60 Normal >=60 [facility] Comment on above: Performed By: #### C MP, LIPID #### [facility] [address] [place] [address] Dr. Carlos Barlow EGFR-NON AF CZECH >60 Normal >=60 [facility] Comment on above: Performed By: #### C MP, LIPID #### [facility] [address] [place] [address] Dr. Carlos Barlow Globulin (S) [Mass/Vol] 3.5 g/dL Normal [facility] Comment on above: Performed By: #### C MP, LIPID #### [facility] [address] [place] [address] Dr. Carlos Barlow Glucose [Mass/Vol] 110 mg/dL Critically high 74-106 [facility] Comment on above: Performed By: #### C MP, LIPID #### [facility] [address] [place] [address] Dr. Carlos Barlow Potassium [Moles/Vol] 4.3 mmol/L Normal 3.5-5.1 [facility] Comment on above: Performed By: #### C MP, LIPID #### [facility] [address] [place] [address] Dr. Carlos Barlow Protein [Mass/Vol] 6.8 g/dL Normal 6.4-8.[address] [facility] Comment on above: Performed By: #### C MP, LIPID #### [facility] [address] [place] [address] Dr. Carlos Barlow Sodium [Moles/Vol] 138 mmol/L Normal 136-[address] [facility] Comment on above: Performed By: #### C MP, LIPID #### [facility] [address] [place] [address] Dr. Carlos Barlow Urea nitrogen [Mass/Vol] 15.0 mg/dL Normal 7.0-18.0 [facility] Comment on above: Performed By: #### C MP, LIPID #### [facility] [address] [place] [address] Dr. Carlos Barlow Urea nitrogen/Creatinine [Mass ratio] 18.8 mg/mg Normal [facility] Comment on above: Performed By: #### C MP, LIPID #### [facility] [address] [place], [place] [id number] Dr. Carlos Barlow Vital Signs Date Time Vital Sign Value Performing Clinician Faith felton 02-20-2025 14:31-0400 Body height 149.86 cm Jeffy Ramos MD Work Phone: [facility] 02-20-2025 14:31-0400 Body mass index (BMI) [Ratio] 34.4 kg/m2 Jeffy Ramos MD Work Phone: [facility] 02-20-2025 14:31-0400 Body temperature 98.1 [degF] Jeffy Ramos MD Work Phone: [facility] 02-20-2025 14:31-0400 Body weight 77.33 kg Jeffy Ramos MD Work Phone: [facility] 02-20-2025 14:31-0400 Diastolic blood pressure 55 mm[Hg] Jeffy Ramos MD Work Phone: [facility] 02-20-2025 14:31-0400 Heart rate 68 /min Jeffy Ramos MD Work Phone: [facility] 02-20-2025 14:31-0400 SaO2% (BldA) [Mass fraction] 97 % Jeffy Ramos MD Work Phone: [facility] 02-20-2025 14:31-0400 Systolic blood pressure 88 mm[Hg] Jeffy Ramos MD Work Phone: [facility] 02-02-2025 14:58-0400 Body height 149.86 cm Jeffy Ramos MD Work Phone: [facility] 02-02-2025 14:58-0400 Body mass index (BMI) [Ratio] 34.5 kg/m2 Jeffy Ramos MD Work Phone: [facility] 02-02-2025 14:58-0400 Body weight 77.56 kg Jeffy Ramos MD Work Phone: [facility] 02-02-2025 14:58-0400 Diastolic blood pressure 72 mm[Hg] Jeffy Ramos MD Work Phone: [facility] 02-02-2025 14:58-0400 Heart rate 61 /min Jeffy Ramos MD Work Phone: [facility] 02-02-2025 14:58-0400 Systolic blood pressure 121 mm[Hg] Jeffy Ramos MD Work Phone: [facility] 01-31-2025 13:51-0400 Diastolic blood pressure 82 mm[Hg] Jeffy Ramos MD Work Phone: [facility] 01-31-2025 13:51-0400 Heart rate 73 /min Jeffy Ramos MD Work Phone: [facility] 01-31-2025 13:51-0400 SaO2% (BldA) [Mass fraction] 97 % Jeffy Ramos MD Work Phone: [facility] 01-31-2025 13:51-0400 Systolic blood pressure 136 mm[Hg] Jeffy Ramos MD Work Phone: [facility] 01-23-2025 08:35-0400 Body height 149.86 cm Jeffy Ramos MD Work Phone: [facility] 01-23-2025 08:35-0400 Body mass index (BMI) [Ratio] 34.5 kg/m2 Jeffy Ramos MD Work Phone: [facility] 01-23-2025 08:35-0400 Body weight 77.56 kg Jeffy Ramos MD Work Phone: [facility] 01-23-2025 08:35-0400 Diastolic blood pressure 82 mm[Hg] Jeffy Ramos MD Work Phone: [facility] 01-23-2025 08:35-0400 Heart rate 71 /min Jeffy Ramos MD Work Phone: [facility] 01-23-2025 08:35-0400 Respiratory rate 16 /min Jeffy Ramos MD Work Phone: [facility] 01-23-2025 08:35-0400 SaO2% (BldA) [Mass fraction] 98 % Jeffy Ramos MD Work Phone: [facility] 01-23-2025 08:35-0400 Systolic blood pressure 130 mm[Hg] Jeffy Ramos MD Work Phone: [facility] 12-27-2024 09:28-0400 Body height 149.86 cm Jeffy Ramos MD Work Phone: [facility] 12-27-2024 09:28-0400 Body mass index (BMI) [Ratio] 35.3 kg/m2 Jeffy Ramos MD Work Phone: [facility] 12-27-2024 09:28-0400 Body weight 79.37 kg Jeffy Ramos MD Work Phone: [facility] 12-27-2024 09:28-0400 Diastolic blood pressure 60 mm[Hg] Jeffy Ramos MD Work Phone: [facility] 12-27-2024 09:28-0400 Heart rate 77 /min Jeffy Ramos MD Work Phone: [facility] 12-27-2024 09:28-0400 Systolic blood pressure 100 mm[Hg] Jeffy Ramos MD Work Phone: [facility] 10-11-2024 11:51-0400 Diastolic blood pressure 79 mm[Hg] Christopher Garrick DO Work Phone: [facility] 10-11-2024 11:51-0400 Heart rate 75 /min Christopher Garrick DO Work Phone: [facility] 10-11-2024 11:51-0400 Systolic blood pressure 136 mm[Hg] Christopher Garrick DO Work Phone: [facility] 09-13-2024 14:13-0400 Body height 149.9 cm Paula Benson [employer] Work Phone: [facility] 09-13-2024 14:13-0400 Body mass index (BMI) [Ratio] 35.14 kg/m2 Paula Benson [employer] Work Phone: [facility] 09-13-2024 14:13-0400 Body weight 78.93 kg Paula Benson [employer] Work Phone: [facility] 09-13-2024 14:13-0400 Diastolic blood pressure 78 mm[Hg] Paula Benson [employer] Work Phone: [facility] 09-13-2024 14:13-0400 Systolic blood pressure 132 mm[Hg] Paula Marquisoll [employer] Work Phone: [facility] 08-16-2024 14:04-0500 Body height 149.86 cm [facility] 08-16-2024 14:04-0500 Body mass index (BMI) [Ratio] 35.1 kg/m2 [facility] 08-16-2024 14:04-0500 Body weight 78.92 kg [facility] 08-16-2024 14:04-0500 Diastolic blood pressure 73 mm[Hg] [facility] 08-16-2024 14:04-0500 Heart rate 64 /min [facility] 08-16-2024 14:04-0500 Systolic blood pressure 116 mm[Hg] [facility] 05-24-2024 16:04-0500 Body mass index (BMI) [Ratio] 38.17 kg/m2 Christopher Garrick DO Work Phone: [facility] 05-24-2024 16:04-0500 Body weight 85.73 kg Christopher Garrick DO Work Phone: [facility] 05-24-2024 16:04-0500 Diastolic blood pressure 76 mm[Hg] Christopher Garrick DO Work Phone: [facility] 05-24-2024 16:04-0500 Heart rate 67 /min Christopher Garrick DO Work Phone: [facility] 05-24-2024 16:04-0500 SaO2% (BldA) [Mass fraction] 97 % Christopher Garrick DO Work Phone: [facility] 05-24-2024 16:04-0500 Systolic blood pressure 128 mm[Hg] Christopher Garrick DO Work Phone: [facility] 05-03-2024 14:38-0500 Blood Pressure Location SARANYA WAYNE [facility] 05-03-2024 14:38-0500 Body temperature 98.6 [degF] SARANYA WAYNE [facility] 05-03-2024 14:38-0500 Diastolic blood pressure 67 mm[Hg] SARANYA PERAZARY [facility] 05-03-2024 14:38-0500 Heart rate 73 /min SARANYA WAYNE [facility] 05-03-2024 14:38-0500 Respiratory rate 18 /min SARANYA WAYNE [facility] 05-03-2024 14:38-0500 Systolic blood pressure 123 mm[Hg] SARANYA WAYNE [facility] 04-19-2024 08:47-0500 Body mass index (BMI) [Ratio] 35.31 kg/m2 Christopher Garrick DO Work Phone: [facility] 04-19-2024 08:47-0500 Body weight 79.29 kg Christopher Garrick DO Work Phone: [facility] 04-19-2024 08:47-0500 Diastolic blood pressure 82 mm[Hg] Christopher Garrick DO Work Phone: [facility] 04-19-2024 08:47-0500 Heart rate 73 /min Christopher Garrick DO Work Phone: [facility] 04-19-2024 08:47-0500 SaO2% (BldA) [Mass fraction] 93 % Christopher Garrick DO Work Phone: [facility] 04-19-2024 08:47-0500 Systolic blood pressure 143 mm[Hg] Christopher Garrick DO Work Phone: [facility] 10-16-2023 10:31-0400 Blood Pressure Location Jean Paul URBAN [facility] 10-16-2023 10:31-0400 Diastolic blood pressure 78 mm[Hg] Jean Paul URBAN [facility] 10-16-2023 10:31-0400 Heart rate 80 /min Jean Paul URBAN [facility] 10-16-2023 10:31-0400 Respiratory rate 16 /min Jean Paul URBAN [facility] 10-16-2023 10:31-0400 Systolic blood pressure 134 mm[Hg] Jean Paul URBAN [facility] 07-18-2023 10:05-0500 Body height 149.86 cm Lissa Prather Other [facility] Other 07-18-2023 10:05-0500 Body mass index (BMI) [Ratio] 33.42 kg/m2 Lissa Prather Other [facility] Other 07-18-2023 10:05-0500 Body temperature 96.2 [degF] Lissa Prather Other [facility] Other 07-18-2023 10:05-0500 Body weight 75.07 kg Lissa Yamilka Other [facility] Other 07-18-2023 10:05-0500 Diastolic blood pressure 81 mm[Hg] Lissa Prather Other [facility] Other 07-18-2023 10:05-0500 Respiratory rate 18 /min Lissa Prather Other [facility] Other 07-18-2023 10:05-0500 SaO2% (BldA) [Mass fraction] 96 % Lissa Prather Other [facility] Other 07-18-2023 10:05-0500 Systolic blood pressure 181 mm[Hg] Lissa Prather Other [facility] Other 06-29-2023 11:17-0500 Blood Pressure Location Jean Paul URBAN [facility] 06-29-2023 11:17-0500 Diastolic blood pressure 78 mm[Hg] Jean Paul URBAN [facility] 06-29-2023 11:17-0500 Heart rate 69 /min Jean Paul URBAN [facility] 06-29-2023 11:17-0500 Respiratory rate 16 /min Jean Paul URBAN [facility] 06-29-2023 11:17-0500 Systolic blood pressure 134 mm[Hg] Jean Paul URBAN [facility] 06-03-2023 09:00-0500 Body height 149.86 cm Marine Watson Other [facility] Other 06-03-2023 09:00-0500 Body mass index (BMI) [Ratio] 33.93 kg/m2 Marine Watson Other [facility] Other 06-03-2023 09:00-0500 Body temperature 96.7 [degF] Marine Watson Other [facility] Other 06-03-2023 09:00-0500 Body weight 76.2 kg Marine Watson Other [facility] Other 06-03-2023 09:00-0500 Diastolic blood pressure 80 mm[Hg] Marine Watson Other [facility] Other 06-03-2023 09:00-0500 SaO2% (BldA) [Mass fraction] 96 % Marine Watson Other [facility] Other 06-03-2023 09:00-0500 Systolic blood pressure 142 mm[Hg] Marine Watson Other [facility] Other 05-05-2023 09:45-0500 Body height 149.86 cm Jeffy Ramos Other [facility] Other 05-05-2023 09:45-0500 Body mass index (BMI) [Ratio] 33.93 kg/m2 Jeffy Ramos Other [facility] Other 05-05-2023 09:45-0500 Body weight 76.2 kg Jeffy Ramos Other [facility] Other 05-05-2023 09:45-0500 Diastolic blood pressure 76 mm[Hg] Jeffy Ramos Other [facility] Other 05-05-2023 09:45-0500 Systolic blood pressure 142 mm[Hg] Jeffy Ramos Other [facility] Other 04-29-2023 09:45-0500 Body height 149.86 cm Gucci Meyers Other [facility] Other 04-29-2023 09:45-0500 Body mass index (BMI) [Ratio] 34.53 kg/m2 Gucci Lowryjair Other [facility] Other 04-29-2023 09:45-0500 Body temperature 97.4 [degF] Gucci Luigi Other [facility] Other 04-29-2023 09:45-0500 Body weight 77.57 kg Gucci Luigi Other [facility] Other 04-29-2023 09:45-0500 Diastolic blood pressure 62 mm[Hg] Ugcci Luigi Other [facility] Other 04-29-2023 09:45-0500 SaO2% (BldA) [Mass fraction] 99 % Gucci Luigi Other [facility] Other 04-29-2023 09:45-0500 Systolic blood pressure 140 mm[Hg] Gucci Luigi Other [facility] Other 04-09-2023 09:15-0400 Body height 149.86 cm Jeffy Ramos Other [facility] Other 04-09-2023 09:15-0400 Body mass index (BMI) [Ratio] 34.53 kg/m2 Jeffy Ramos Other [facility] Other 04-09-2023 09:15-0400 Body weight 77.57 kg Jeffy Ramos Other [facility] Other 04-09-2023 09:15-0400 Diastolic blood pressure 78 mm[Hg] Jeffy Ramos Other [facility] Other 04-09-2023 09:15-0400 Systolic blood pressure 151 mm[Hg] Jeffy Ramos Other [facility] Other 03-27-2023 10:30-0400 Body height 149.86 cm Jeffy Ramos Other [facility] Other 03-27-2023 10:30-0400 Body mass index (BMI) [Ratio] 35.75 kg/m2 Jeffy Ramos Other [facility] Other 03-27-2023 10:30-0400 Body weight 80.29 kg Jeffy Ramos Other [facility] Other 03-27-2023 10:30-0400 Diastolic blood pressure 81 mm[Hg] Jeffy Ramos Other [facility] Other 03-27-2023 10:30-0400 Systolic blood pressure 147 mm[Hg] Jeffy Ramos Other [facility] Other 03-11-2023 11:00-0400 Body height 149.86 cm Jeffy Ramos Other [facility] Other 03-11-2023 11:00-0400 Body mass index (BMI) [Ratio] 33.73 kg/m2 Jeffy Ramos Other [facility] Other 03-11-2023 11:00-0400 Body weight 75.75 kg Jeffy Ramos Other [facility] Other 03-11-2023 11:00-0400 Diastolic blood pressure 66 mm[Hg] Jeffy Ramos Other [facility] Other 03-11-2023 11:00-0400 Systolic blood pressure 109 mm[Hg] Jeffy Ramos Other [facility] Other 11-21-2022 10:45-0400 Body height 149.86 cm Jeffy Ramos Other [facility] Other 11-21-2022 10:45-0400 Body mass index (BMI) [Ratio] 33.12 kg/m2 Jeffy Ramos Other [facility] Other 11-21-2022 10:45-0400 Body weight 74.39 kg Jeffy Ramos Other [facility] Other 11-21-2022 10:45-0400 Diastolic blood pressure 70 mm[Hg] Jeffy Ramos Other [facility] Other 11-21-2022 10:45-0400 Systolic blood pressure 112 mm[Hg] Jeffy Ramos Other [facility] Other 10-14-2021 10:45-0400 Body height 149.86 cm Alex Horton Other [facility] Other 10-14-2021 10:45-0400 Body mass index (BMI) [Ratio] 33.93 kg/m2 Alex Horton Other [facility] Other 10-14-2021 10:45-0400 Body weight 76.2 kg Alex Horton Other [facility] Other 09-23-2021 11:15-0400 Body height 149.86 cm Alex Sol Other [facility] Other 09-23-2021 11:15-0400 Body mass index (BMI) [Ratio] 33.12 kg/m2 Alex Sol Other [facility] Other 09-23-2021 11:15-0400 Body weight 74.39 kg Alex Horton Other [facility] Other Encounters Encounter Date Encounter Type Care Provider Facility Start: 02-20-2025 End: 02-20-2025 ambulatory Jeffy Ramos MD Work Phone: [facility] Work Phone: Start: 02-20-2025 End: 02-20-2025 Patient encounter procedure Jeffy Ramos MD -[facility] Work Phone: Start: 02-02-2025 End: 02-02-2025 ambulatory Jeffy Ramos MD Work Phone: [facility] Work Phone: Start: 02-02-2025 End: 02-02-2025 Patient encounter procedure Jeffy Ramos MD -[facility] Work Phone: Start: 01-31-2025 End: 01-31-2025 ambulatory Jeffy Ramos MD Work Phone: [facility] Work Phone: Start: 01-31-2025 End: 01-31-2025 Patient encounter procedure Mustapha Conner DO -[facility] [place] Work Phone: Start: 01-23-2025 End: 01-23-2025 ambulatory Jeffy Ramos MD Work Phone: [facility] Work Phone: Start: 01-23-2025 End: 01-23-2025 Patient encounter procedure Paula Benson APRN-COMPREHENSIVE OPHTHALMOLOGIST-C -[facility] [place] Work Phone: Start: 01-16-2025 Non-patient / Non-visit Cristela Godoy CMA -[facility] Work Phone: Start: 01-14-2025 Non-patient / Non-visit Christian Loja DO -[facility] Work Phone: Start: 12-27-2024 End: 12-27-2024 ambulatory Jeffy Ramos MD Work Phone: [facility] Work Phone: Start: 12-27-2024 End: 12-27-2024 Patient encounter procedure Jeffy Ramos MD -[facility] Work Phone: Start: 12-15-2024 End: 12-15-2024 ambulatory [facility] Start: 11-10-2024 Non-patient / Non-visit Cynthia giraldo [facility] Work Phone: Start: 11-10-2024 End: 11-10-2024 ambulatory AB [facility] Start: 10-18-2024 End: 10-18-2024 ambulatory [facility] Start: 10-11-2024 End: 10-11-2024 Bamboo flowsheet Mustapha Garrick DO Work Phone: [facility] [place] Start: 10-11-2024 End: 10-11-2024 Bamboo flowsheet Johnzina Mccauley DO Work Phone: [facility] [place] Start: 10-11-2024 End: 10-11-2024 ambulatory MUSTAPHA MCCAULEY Not Available Start: 10-11-2024 End: 10-11-2024 Patient encounter procedure Mustapha Mccauley DO Work Phone: [facility] [place] Comment on above: Lumbar radiculopathy (Primary Dx); Lumbar spondylosis; Lumbosacral radiculopathy; Paresthesia Start: 09-13-2024 End: 09-13-2024 Office outpatient visit 25 minutes Paula Benson NP Work Phone: [facility] [place] Comment on above: Lumbar spondylosis ( Primary Dx); Lumbosacral radiculopathy; Paresthesia Start: 09-13-2024 End: 09-13-2024 ambulatory PAULA BENSON Not Available Start: 09-13-2024 End: 09-13-2024 Bamboo flowsheet Paula Benson AIRPORT CONTROL OPERATOR Work Phone: [facility] [place] Start: 09-13-2024 End: 09-13-2024 Bamboo flowsheet Paula Benson AIRPORT CONTROL OPERATOR Work Phone: [facility] [place] Start: 09-06-2024 End: 09-06-2024 Patient encounter procedure Jeffy Ramos MD Work Phone: [facility] [place] Work Phone: Start: 09-06-2024 End: 09-06-2024 ambulatory Jeffy Ramos MD Work Phone: [facility] Work Phone: Start: 08-16-2024 End: 08-16-2024 ambulatory [facility] Work Phone: Start: 08-16-2024 End: 08-16-2024 Patient encounter procedure [facility] Physician [facility] Work Phone: Start: 05-24-2024 End: 05-24-2024 Office outpatient visit 25 minutes Mustapha Mccauley DO Work Phone: [facility] [place] [address] Comment on above: Weakness of both low er extremities (Primary Dx); Lumbosacral radiculopathy Start: 05-24-2024 End: 05-24-2024 ambulatory MUSTAPHA MCCAULEY Not Available Start: 05-24-2024 End: 05-24-2024 Bamboo flowsheet Tess Lopez PT Work Phone: [facility] Start: 05-24-2024 End: 05-24-2024 Bamboo flowsbenjamin Lopez PT Work Phone: [facility] Start: 05-24-2024 End: 05-24-2024 ambulatory Tess Lopez PT Work Phone: [facility] Comment on above: Paresthesia (Primary Dx); Radiculopathy, lumbar region Start: 05-18-2024 End: 05-18-2024 ambulatory Angela Kelbley MICROBIOLOGY LAB MANAGER [facility] Comment on above: Paresthesia (Primary Dx); Radiculopathy, lumbar region Start: 05-17-2024 End: 05-17-2024 Bamboo flowsheet Mustapha Mccauley DO Work Phone: [facility] [place] [address] Start: 05-17-2024 End: 05-17-2024 Bamboo flowsheet Mustapha Mccauley DO Work Phone: [facility] [place] [address] Start: 05-17-2024 End: 05-17-2024 Patient encounter procedure Mustap[facility]ule[facility] DO [facility] Comment on above: Lumbosacral radiculo bhumika (Primary Dx); Paresthesia Start: 05-17-2024 End: 05-17-2024 ambulatory MUSTAPHA MCCAULEY Not Available Start: 05-10-2024 End: 05-10-2024 ambulatory Angela Kelbley MICROBIOLOGY LAB MANAGER [facility] Comment on above: Paresthesia (Primary Dx); Radiculopathy, lumbar region Start: 05-05-2024 End: 05-05-2024 Bamboo flowsheet Angela Kelbley MICROBIOLOGY LAB MANAGER [facility] Start: 05-05-2024 End: 05-05-2024 Bamboo flowsheet Angela Kelbley MICROBIOLOGY LAB MANAGER [facility] Start: 05-05-2024 End: 05-05-2024 ambulatory Angela Kelbley MICROBIOLOGY LAB MANAGER [facility] Comment on above: Paresthesia (Primary Dx); Radiculopathy, lumbar region Start: 05-03-2024 End: 05-03-2024 Patient encounter procedure SARANYA WAYNE [facility] Start: 05-03-2024 End: 05-03-2024 Bamboo flowsheet Angela Kelbley MICROBIOLOGY LAB MANAGER [facility] Start: 05-03-2024 End: 05-03-2024 Bamboo flowsheet Angela Kelbley MICROBIOLOGY LAB MANAGER [facility] Start: 05-03-2024 End: 05-03-2024 ambulatory Angela Looney MICROBIOLOGY LAB MANAGER [facility] Comment on above: Paresthesia [...] Bamboo flowsheet Mustapha Mccauley DO Work Phone: [facility] [employer] [address] Start: 04-19-2024 End: 04-19-2024 Bamboo flowsheet Mustapha Mccauley DO Work Phone: [email or web address] [employer] [address] Start: 04-19-2024 End: 04-19-2024 Office outpatient new 45 minutes Mustapha Mccauley DO Work Phone: [facility] [place] [facility] Comment on above: Paresthesia (Primary Dx) Start: 04-19-2024 End: 04-19-2024 ambulatory MUSTAPHA MCCAULEY Not Available Start: 02-16-2024 End: 02-16-2024 ambulatory [facility] Start: 10-16-2023 End: 10-16-2023 ambulatory Jean Paul URBAN Facility:[facility] [place] Start: 10-16-2023 End: 10-16-2023 Patient encounter procedure Jean Paul URBAN [facility] [place] Start: 07-28-2023 End: 07-28-2023 ambulatory Jean Paul URBAN Facility:[facility] Start: 07-28-2023 End: 07-28-2023 Patient encounter procedure Jean Paul URBAN [facility] Start: 07-18-2023 End: 07-18-2023 ambulatory Lissa Prather Other [facility] Other Start: 07-18-2023 Office outpatient vi sit 15 minutes Lissa Prather [facility] [place] Start: 06-29-2023 End: 06-29-2023 ambulatory Jean Paul URBAN Facility:[facility] [place] Start: 06-29-2023 End: 06-29-2023 Patient encounter procedure Jean Paul URBAN [facility] Start: 06-03-2023 End: 06-03-2023 Patient encounter procedure Marine Watson [facility] V[facility] Start: 06-03-2023 End: 06-03-2023 ambulatory NON STAFF [facility] Other Start: 05-20-2023 End: 05-20-2023 ambulatory Jeffy Ramos Other [facility] Other Start: 05-20-2023 Telephone encounter Jeffy Ramos [facility] Start: 05-05-2023 End: 05-05-2023 ambulatory Jeffy Ramos Other [facility] Other Start: 05-05-2023 Office outpatient vi sit 15 minutes Jeffy Ramos [facility] Start: 04-29-2023 End: 04-29-2023 ambulatory Gucci Luigi Other [facility] Other Start: 04-29-2023 Office outpatient ne w 30 minutes Gucci Meyers [facility] Start: 04-29-2023 Telephone encounter Gucci sexton [facility] [employer] [facility] [facility] Start: 04-21-2023 End: 04-21-2023 ambulatory Alex Horton Other [facility] Other Start: 04-21-2023 Telephone encounter [facility] Horton [facility] Start: 04-09-2023 End: 04-09-2023 ambulatory Jeffy Ramos Other [facility] Other Start: 04-09-2023 Office outpatient vi sit 15 minutes Jeffy Ramos [facility] Start: 03-30-2023 End: 03-30-2023 ambulatory Jeffy Ramos Other [facility] Other Start: 03-30-2023 Telephone encounter Jeffy Ramos [facility] Start: 03-27-2023 End: 03-27-2023 ambulatory Jeffy Ramos Other [facility] Other Start: 03-27-2023 Office outpatient vi sit 15 minutes Jeffy Ramos [facility] Start: 03-24-2023 End: 03-24-2023 ambulatory Jeffy Ramos Other [facility] Other Start: 03-24-2023 Telephone encounter Jeffy Ramos [facility] Start: 03-11-2023 End: 03-11-2023 ambulatory Jeffy Ramos Other [facility] Other Start: 03-11-2023 Office outpatient vi sit 15 minutes Jeffy Ramos [facility] Start: 02-23-2023 End: 02-23-2023 ambulatory NON STAFF [facility] Work Phone: Start: 02-23-2023 End: 02-23-2023 Patient encounter procedure [facility] Start: 02-03-2023 End: 02-03-2023 ambulatory Jeffy Ramos Other [facility] Other Start: 02-03-2023 Telephone encounter Jeffy Ramos [facility] Start: 11-21-2022 End: 11-21-2022 ambulatory Jeffy Ramos Other [facility] Other Start: 11-21-2022 Office outpatient vi sit 15 minutes Jeffy Ramos [facility] Start: 09-26-2022 End: 09-26-2022 ambulatory Jeffy Ramos Other [facility] Other Start: 09-26-2022 Telephone encounter Jeffy Ramos [facility] Start: 09-24-2022 Nursing evaluation o f patient and report Jeffy Ramos [facility] Start: 09-24-2022 End: 09-25-[address] JEFFY RAMOS [facility] Work Phone: Start: 09-24-2022 End: 09-24-2022 Departed Referred MD Jeffy Ramos Work Phone: [facility] [place] Work Phone: Start: 07-07-2022 (Televisit) Televisit Jeffy De La Cruz [facility] Start: 07-07-2022 End: 07-07-2022 ambulatory Jeffy Ramos Other [facility] Other Start: 07-05-2022 End: 07-06-[address] DOCTOR MCCULLOUGH Facility:[facility] Start: 05-13-2022 Adult health examination Zaina Ramos Other [facility] Other Start: 05-05-2022 End: 05-05-[address] JEFFY RAMOS Facility:[facility] Start: 04-02-2022 End: 04-02-2022 ambulatory Alex Horton Other [facility] Other Start: 04-02-2022 Office outpatient vi sit 15 minutes Alex Horton [facility] Start: 03-31-2022 End: 04-01-[address] JEFFY RAMOS Facility:[facility] Start: 03-10-2022 End: 03-11-[address] CYNTHIA BARRY Facility:[facility] Start: 02-19-2022 End: 02-20-2022 ambulatory ANGELA BRAND Facility:[facility] Start: 11-13-2021 End: 11-13-2021 ambulatory Alex Horton Other [facility] Other Start: 11-13-2021 Telephone encounter Alex Horton [facility] Start: 10-28-2021 End: 10-28-2021 ambulatory Alex oHrton Other [facility] Other Start: 10-28-2021 Telephone encounter Alex Horton [facility] Start: 10-23-2021 End: 10-23-2021 ambulatory Alex Horton Other [facility] Other Start: 10-23-2021 Telephone encounter Alex Horton [facility] Start: 10-14-2021 End: 10-14-2021 ambulatory Alex Horton Other [facility] Other Start: 10-14-2021 Office outpatient vi sit 25 minutes Alex Horton [facility] Start: 09-23-2021 End: 09-23-2021 ambulatory Alex Horton Other [facility] Other Start: 09-23-2021 Office outpatient vi sit 15 minutes Alex Horton [facility] Procedures Date Procedure Procedure Detail Performing [...] Jeffy Ramos Other Start: 04-10-2015 Screening mammography M hugh Ramos Other Start: 05-16-2014 History and physical [...] Visit [facility] [place] [address] [place] [address] Mustapha Mccauley DO [address] [place] [address] [facility] [place] Start: 01-23-2025 End: 01-23-2025 Patient encounter procedure 01/23/2025 9:00 AM EDT Office Visit [facility] [place] [address] [place] [address] Paula Benson, QUINTON [address] [place] [phone] [facility] [place] Start: 10-11-2024 End: 09-13-2025 Nerve Block Nerve Block Procedures Routine Lumbar spondylosis Lumbosacral radiculopathy Paresthesia Expected: 10/11/2024 (Approximate), Expires: 09/13/2025 [facility] Work Phone: Comment on above: Expected: 10/11/2024 (Approximate), Expires: 09/13/2025 Start: 10-11-2024 End: 10-11-2024 Patient encounter procedure 10/11/2024 11:45 AM EDT Office Visit [facility] [place] [address] [place] [address] Mustapha Mccauley DO [address] [place] [address] [facility] [place] Start: 09-13-2024 End: 09-13-2024 Patient encounter procedure 09/13/2024 2:20 PM EDT Office Visit [facility] [place] [address] [place] [address] Paula Benson NP [address] [place] [id number] Arrived [facility] [place] Comment on above: Arrived Start: 06-21-2024 End: 06-21-2024 Patient encounter procedure 06/21/2024 12:30 PM EST Office Visit [facility] [place] [address] [place] [address] Mustapha Mccauley DO [address] [place] [address] [facility] [place] [address] Start: 05-24-2024 End: 05-24-2024 Patient encounter procedure 05/24/2024 4:15 PM EST Office Visit [facility] [place] [address] [place] [address] Mustapha Mccauley, [address] [place] [address] [facility] [place] [address] [facility] Start: 05-24-2024 End: 05-24-2025 MR [...] [address] [place] [address] Tess Lopez, PT [address] [facility] [address] [place] [address] [facility] Start: 05-19-2024 End: 05-19-2024 ambulatory 05/19/2024 11:00 AM EST Treatment [facility] [address] [place] [address] Tess Lopez, PT [address] [place] [address] [facility] Start: 05-18-2024 End: 05-18-2024 ambulatory 05/18/2024 9:30 AM EST Treatment [facility] [address] [place] [address] Angela Looney, MICROBIOLOGY LAB MANAGER [facility] Start: 05-17-2024 End: 05-17-2024 Patient encounter procedure [facility] [place] [address] Comment on above: Arrived Start: 05-17-2024 End: 05-17-2024 ambulatory 05/17/2024 10:30 AM EST Treatment [facility] [address] [place] [address] Angela Looney, MICROBIOLOGY LAB MANAGER [facility] Start: 05-10-2024 End: 05-10-2024 ambulatory 05/10/2024 11:00 AM EST Treatment [facility] [address] [place] [address] Angela Looney, MICROBIOLOGY LAB MANAGER [facility] Start: 05-05-2024 End: 05-05-2024 ambulatory [facility] Comment on above: Arrived Start: 05-03-2024 End: 05-03-2024 ambulatory 05/03/2024 11:00 AM EST Treatment [facility] [address] [place] [address] Angela Looney, MICROBIOLOGY LAB MANAGER Arrived [facility] Comment on above: Arrived Start: 04-28-2024 End: 04-28-2024 ambulatory 04/28/2024 2:00 PM EST Evaluation [facility] [address] [place] [address] Tess Lopez, PT [address] [place] [address] [facility] Start: 04-28-2024 End: 04-28-2024 Patient encounter procedure 04/28/2024 8:30 AM EST Procedure Visit [facility] [place] [address] [place] [id number] Mustapha Mccauley DO [address] [place] [address] [facility] [place] [address] [facility] Start: 04-19-2024 End: 04-19-2025 EMG 2 Extremities EMG 2 Extremities Neurology Routine Paresthesia Expected: 04/19/2024, Expires: 04/19/2025 [facility] Work Phone: Comment on above: Expected: 04/19/2024 , Expires: 04/19/2025 Start: 04-19-2024 End: 04-19-2024 Patient encounter procedure 04/19/2024 9:00 AM EST Office Visit [facility] [address] [place] [address] Mustapha Mccauley, DO [address] [place] [address] Arrived [facility] Comment on above: Arrived Start: 09-24-2022 Bacteria identified in Urine by Culture Urine Culture [facility] Start: 01-28-2021 Pneumococcal Vaccine : 65+ Years (1 of 1 - PCV) Pneumococcal Vaccine: 65+ Years (1 of 1 - PCV) [facility] Start: 01-28-2006 Pneumococcal Vaccine : 65+ Years (1 of 1 - PCV) Pneumococcal Vaccine: 65+ Years (1 of 1 - PCV) [facility] Start: 1996 Screening for malign ant neoplasm of breast Mammogram [facility] Start: 1956 Screening for malign ant neoplasm of colon [facility] Patient Education [facility] Work Phone: XR Hip - right 2 Views [facility] XR Lumbar spine 2 or 3 Views [facility] Immunizations Immunization Date Immunization Notes Care Provider Fa cility 04-05-2024 influenza virus vaccine, unspecified formulation SARANYA WAYNE [facility] 04-05-2024 influenza, high dose seasonal, preservative-free [facility] 04-08-2023 influenza virus vaccine, unspecified formulation Jean Paul URBAN [facility] 07-23-2022 Prevnar 20 Jeffy Ramos Other [facility] 03-22-2022 COVID-19 Vaccine Moderna - Documentation Purposes Only Jeffy Ramos Other [facility] 03-22-2022 influenza virus vaccine, split virus (incl. purified surface antigen) Jeffy Ramos Other [facility] Other 03-22-2022 influenza virus vaccine, unspecified formulation Jean Paul URBAN [facility] 03-22-2022 SARS-CoV-2 (COVID-19 ) [id number] Jean Paul URBAN [facility] 06-05-2021 pneumococcal conjuga te vaccine, 13 valent Jeffy Ramos Other [facility] 05-23-2021 Do not use COVID-19 Pfizer 2 dose Alex Sol Other [facility] 04-01-2021 influenza virus vaccine, unspecified formulation Jean Paul URABN [facility] 09-28-2020 COVID-19 mRNA, Comirnaty (Pfizer) MD Jeffy Ramos Work Phone: [facility] 09-18-2020 Do not use COVID-19 Pfizer 2 dose Alex Sol Other [facility] 08-28-2020 Do not use COVID-19 Pfizer 2 dose Alex Sol Other [facility] 02-29-2020 influenza virus vaccine, unspecified formulation Jean Paul URBAN [facility] 03-25-2019 influenza virus vaccine, unspecified formulation Jean Paul URBAN [facility] 06-28-2018 zoster vaccine recombinant Jean Paul URBAN [facility] 03-30-2018 zoster vaccine recombinant Jean Paul URBAN [facility] 03-09-2018 influenza virus vaccine, split virus (incl. purified surface antigen) Jeffy Ramos Other [facility] Other 03-09-2018 influenza virus vaccine, unspecified formulation Jean Paul URBAN [facility] 02-29-2016 tetanus and diphther ia toxoids, adsorbed, preservative free, for adult use (5 Lf of tetanus toxoid and 2 Lf of diphtheria toxoid) Jeffy Ramos Other [facility] 04-09-2015 influenza virus vaccine, unspecified formulation Jean Paul URBAN [facility] 04-09-2015 tetanus and diphther ia toxoids, adsorbed, preservative free, for adult use (5 Lf of tetanus toxoid and 2 Lf of diphtheria toxoid) Jeffy Ramos Other [facility] Payers Date Payer Category Payer Self-pay [id number] 2021 Medicare (Managed Care) FOR[facility]LY [facility] [id number] 2020 Unknown [id number] [id number] 1956 Unknown [id number] 2.16.840.1.618968.3.579. 2.593 1956 Unknown [id number] 2.16.840.1.461794.3.579. 2.593 1956 Unknown [id number] 2.16.840.1.431287.3.579. 2.593 1956 Unknown [id number] 2.16.840.1.613016.3.579. 2.593 1956 Unknown [id number] 2.16.840.1.198084.3.579. 2.593 1956 Unknown [id number] 2..840.1.768245.3.579. 2.593 1956 Unknown [id number] 2..840.1.556277.3.579. 2.727 1956 Unknown [id number] 2..840.1.106690.3.579. 2.727 1956 Unknown [id number] 2..840.1.986998.3.579. 2.727 1956 Unknown [id number] 2..840.1.206901.3.579. 2.727 1956 Unknown [id number] 2..840.1.121587.3.579. 2.125 1956 Unknown [id number] 2..840.1.051766.3.579. 2.125 1956 Unknown [id number] 2..840.1.537387.3.579. 2.125 1956 Unknown [id number] 2.16.840.1.478213.3.579. 2.125 1956 Unknown [id number] 2.16.840.1.758886.3.579. 2.1259 1956 Unknown [id number] 2.16.840.1.004358.3.579. 2.1259 1956 Unknown [id number] 2.16.840.1.454936.3.579. 2.1259 1956 Unknown [id number] 2.16.840.1.054176.3.579. 2.1259 1956 Unknown [id number] 2.16.840.1.740542.3.579. 2.9 1956 Unknown [id number] 2.16.840.1.604925.3.579. 2.1259 1956 Unknown [id number] 2.16.840.1.130385.3.579. 2.1259 Unknown [facility] [id number] Unknown [id number] 2.16.840.1.876573.3.579. 2.531 Social History Date Type Detail Facility Unknown if ever smoked [facility] Other Sex Assigned At [facility] Start: 10-22-2021 End: 04-15-2024 Tobacco smoking status NHIS Never smoked tobacco (finding) [facility] Start: 1955 Sex Assigned At Female F [facility] Tobacco smoking status Never [facility] Tobacco smoking status [facility] Tobacco smoking consumption unknown [facility] Start: 03-23-2024 Gender identity Identifies as female gender (finding) [facility] Start: 08-16-2024 End: 09-07-2024 Sex Female (finding) [facility] Functional Status Date Assessment Result Facility 05-03-2024 Functional Status N/A [facility] 10-16-2023 Functional Status N/A [facility] 07-28-2023 Functional Status N/A [facility] 06-29-2023 Functional Status N/A [facility] Clinical Notes 09-23-2021 to 12-27-2024 Note Date & Type Note Facility 12-27-2024 Evaluation note Diagnosis Onset Date Resolution Disorder of right middle ear acute December 27, 2024 9:27am Excessive cerumen in left ear canal acute December 27, 2024 9:27am DDD (degenerative disc disease), lumbar chronic January 23 8:27am Lumbosacral radiculopathy chronic January 23 8:27am [facility] Work Phone: 1(139) 951-682607-15-2025 Evaluation note* Diagnosis Onset Date Resolution Status Admit Date Disorder of right middle ear acute December 27, 2024 9:27am Excessive cerumen in left ea r canal acute December 27, 2024 9:27am DDD (degenerative disc disease), lumbar chronic January 23 8:27am Lumbosacral radiculopathy chronic January 23, 2025 8:27am Lumbar radiculopathy acute 2024 1:15pm [facility] Work Phone: 1(523) 232-887807-15-2025 Evaluation note* Diagnosis Onset Date Resolution Status [...] abscess w/o bleeding acute February 02 2:48pm [facility] Work Phone: 1(894) 757-367307-03-20[facility] Chief Complaint: Patient here for 6 week follow up medication change. Hydrochlorothiazide was stopped and carvedilol was decreased to 12.5mg bid. Then patient had some LE edema and weight gain so she restarted hydrochlorothiazide. C/o diaphoresis. Denies chest pain and SOB. LE edema has resolved since restarting hydrochlorothiazide. HPI: Pebbles Valencia Johnson is a 69 y.o. female with [...] Last Recorded Vitals BP (more content not included)...[facility]05-29-[facility] Chief Complaint: [...] present. CARDIAC: S1, S2 (more content not included)...[facility]05-06-[facility] Chief Complaint: Patient [...] 4.3, BUN 15, serum (more content not included)...[facility]04-29-2025 History of Present illness Narrative* Mustapha Mccauley, - 10/11/2024 11:45 AM EDT Images from the original note were not included. Reason for Appointment: Epidural HERE FOR FIRST EPI Patient ID: Pebbles Johsnon is a 69 y.o. female who presents [...] good spread of the dye along the corresp onding nerve root and through the foramen into the axillary recess of the epidural space without any vascular uptake. Then the 1ml of 0.25% Bupivacaine mixed with 1ml of Dexamethasone 10mg/ml was injected without adverse effect. The procedure was completed without complications and was tolerated well. The patient was monitoredafter the procedure. The patient (or responsible democrat) was given post-procedure and discharge instructions to follow at home. The patient was discharged in stable condition. A follow-up appointment was made. The patient was instructed to avoid activities that would normally worsen the pain. Pre-procedure pain score: 5-6 /10 Marine Railway Operator: RT Neville(Micheal) kVp: 103 Time (sec): 10 mA: 3.0 Patient ID: Pebbles Johnson is a 69 y.o. female. Nerve Block Date/Time: 10/11/2024 12:34 PM Performed by: Mustapha Mccauley DO Authorized by: Mustapha Mccauley DO Consent: Consent obtained: Written Consent given by: Patient [place] protocol: Procedure explained and questions answered to patient or proxy's satisfaction: yes Patient identity confirmed: Verbally with patient Location: Body area: Trunk Trunk nerve: Lumbar Procedure details: Guidance: fluoroscopy Steroid injected: Dexamethasone Post-procedure details: Procedure completion: Tolerated documented in this encounterOzarks Medical [id number] History of Present illness Narrative* Paula Benson NP - 09/13/2024 2:20 PM EDT Chief Complaint Patient presents with Back Pain [...] 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 Recent and remotememory are intact. Speech is clear and fluent [...] wrist extensors , wrist flexor , and deep sea diver strength 5/5. LUE strength deltoid , biceps , triceps , wrist extensors , wrist flexor , and deep sea diver strength 5/5. RLE strength iliopsoas, quadriceps, tibialis [...] knee reflex 1+. Crockett's sign negative. Coordination: Uttsmr-hv-jhud testing normal. Rapid alternating movements are normal. Gait: Appears mildly antalgic. Review and summary of old records: MRI of the lumbar spine with and without contrast at [facility] on 09/06/2024: 2 mm anterolisthesis of L4-L5. [...] and minor central canal narrowing. At L3-L4, broad- based disc bulge with mnxj-ku-zpesszcn facet arthropathy. Mild to moderate centralcanal stenosis. Mild to moderate right neural foraminal [...] chronic right-sided low back pain which is non-radicularbut also has intermittent numbness/paresthesias in the bilateral lower extremities (unclear exactlywhere). She has no subjective weakness and no objective weakness on clinical exam. BLE EMG on 05/17/2024 identified bilateral S1 radiculopathies without evidence of polyneuropathy. MRI of the lumbar spine on 09/06/2024 identified multilevel degenerative disc disease with facet arthropathy and varying degrees of spinal canal and neural foraminal stenosis at multiple levels. There was moderate leftneural foraminal narrowing at L1-L2 and L3-L4 and mild to moderate right neural foraminal narrowingat L3-L4. At L4-L5, there was crowding of both subarticular zones at L4-L5. The patient has tried physical therapy for her symptoms with positive response, but symptoms persist. PLAN: - I reviewed MRI results with the patient - Will schedule for right L5 epidural injections. The patient does not believe she needs left-sidedinjections at this time. Risks including but not [...] in detail. All questions answered. The patient verbalizesunderstanding and is agreeable to the plan. Discussion in layman's terms. Follow up in the office within 1 month; sooner if needed for new or worsening symptoms. Paula Benson NP [facility] documented in this encounterOzarks Medical [id number] Chief complaint+Reason for visit Narrative* Chief Complaint Admit Date hip pain talk about referral, ear lavage August 16, 2024 1:59pm r29.898 September 06, 2024 3:0 0pm Reason for Visit Admit Date Impacted cerumen of both ears August 16, 2024 1:59pm Lumbar pain August 16, 2024 1:59 pm [facility] Work Phone: 1(323) 437-977403-04-2025 Evaluation note* Diagnosis Onset Date Resolution Status Admit Date Impacted cerumen of both ears acute August 16, 2024 1:59pm Lumbar pain acute August 16 1:59pm [facility] Work Phone: 1(589) 757-792812-10-2024 History of Present illness Narrative* Mustapha Mccauley, - 05/24/2024 4:15 PM EST Images from the original note were not included. Chief Compliant: Paresthesia Subjective Pebbles A Alex, 69 y.o., female Patient presents today for [...] , wrist extensors , wrist flexor , deep sea diver strength 5/5. LUE Strength deltoid , biceps , triceps , wrist extensors , wrist flexor , deep sea diver strength 5/5. RLE Strength illopsoas, quadriceps, tibialis [...] reflex 1+ . Crockett's sign negative. Coordination: Inrtmd-qv-ufmo testing and rapid alternating movements are normal [...] plan, and return instructions documented in this encounterOzarks Medical [id number] History of Present illness Narrative* Tess Lopez, PT - 05/24/2024 9:30 AM EST Physical [...] to be instructed in home exercise program. Residential Goals: To be met in 10 weeks [...] Please sign below. Date: documented in this [facility]12-03-2024 History of Present illness Narrative* ROYER Lozada - 05/17/2024 12:30 PM EST Images from the original note were not included. Reason for Appointment: EMG Patient: Pebbles Johnson : 1955 EMG Computer: [employer] Referring Physician: Dr. Mustapha Mccauley EMG: BLE industrial green systems designer: Brian Liao RT(R) Office Location: [place] Reason for EMG: c/o numbness/tingling in bilateral feet, low back pain. No hx of DM. Taking ASA. Comments: Procedure was explained to the patient who expressed understanding. Patient appeared to have tolerated the test well despite some discomfort due to the nature of the test. documented in this [facility]11-19-2024 Hospital Discharge instructions Patient Education 05/03/2024 15:01:36 [...] your health care provider. General instructions Take qmxb-qed-vvlmhiv and prescription medicines only as told by [...] provider. Document Revised: 02/18/2021 Document Reviewed: 02/18/2021 [employer] Patient Education 2023 link bird. Follow Up Care 10/16/2023 11:19:56 With:SARANYA WAYNE PA-C, URL Address: When:1 year [facility]24 NotePatient Education Obstetrics and Gynecology Overactive [...] health care provider. General instructions ??? Take wmhx-uzy-lhacubd and prescription medicines only as told by [...] you drink, and whe (more content not included)...[facility]11-14-2024 History of Present illness Narrative* Tess Lopez, PT - 04/28/2024 2:00 PM EST Physical [...] to be instructed in home exercise program. Residential Goals: To be met in 10 weeks [...] 04/28/2024 3:02 PM EST documented in this encounterOzarks Medical [id number] History of Present illness Narrative* Mustapha Mccauley [...] , wrist extensors , wrist flexor , deep sea diver strength 5/5. LUE Strength deltoid , biceps , triceps , wrist extensors , wrist flexor , deep sea diver strength 5/5. RLE Strength illopsoas, quadriceps, tibialis [...] reflex 1+ . Crockett's sign negative. Coordination: Felyzo-sf-mixz testing and rapid alternating movements are normal [...] plan, and return instructions documented in this encounterOzarks Medical CenterWmxybpvktu03-57-6921 [facility] Cardiology Clinic Note Chief Complaint: Patient here [...] dysfunction (abnormal relaxation). Normal (more content not included)...[facility] 10-16-2023 Hospital Discharge instructions Patient Education [...] rectum to the vagina. General instructions Take ylbc-pni-crkcoqj and prescription medicines only as told by [...] provider. Document Revised: 11/29/2020 Document Reviewed: 11/29/2020 [employer] Patient Education 2022 link bird. Follow Up Care 07/28/2023 11:08:09 With:MARYAM BEAVERS, Jean Paul Burton, URL Address: [address] [place] [address] [place] [address]- When: Unknown [facility] 02-13-2024 Hospital Discharge instructions Patient Education [...] Address: [facility] [address] [place] [address]- Business (1) When:10/26/2023 11:01:17 [facility]02-13-2024 Note [id number] [facility]-28-2023 NoteCustom Cystoscopy with Urethral Dilation ? [...] you have a fever over 100 degreesFisher [facility] Evaluation note* Encounter Date Diagnosis Assessment Notes Treatment Notes Treatment Clinical Notes Jul, Contact with and (suspected) exposure to covid-19 (ICD-10 - Z20.822) Jul, Viral URI (ICD-10 - J06.9) Drink plenty of fluids, get plenty of rest. Take Tylenol or Motrin as needed for aches pains or fevers. Follow-up with your family physician if no improvement in 2 to 3 days [facility] Other 01-15-2024 Hospital Discharge instructions Patient Education [...] including vitamins, herbs, eye drops, creams, and rhsp-kxk-zyfcdch medicines. ?Whether you are or may be [...] provider. Document Revised: 02/12/2022 Document Reviewed: 01/04/2021 [employer] Patient Education 2022 [employer] 06/29/2023 11:52:01 Urinary Incontinence Urinary Incontinence Urinary [...] nerve stimulation). ?For women, using a medical administrative assistant to prevent urine leaks. This is [...] right after experiencing incontinence. General instructions Take ozof-gcp-jcjchgq and prescription medicines only as told by [...] important. Where to find more information National [place] of Diabetes and Digestive and Kidney Diseases: www.niddk.nih.gov [place] [employer]: www.urologyhealth.org Contact a health care [...] provider. Document Revised: 01/04/2021 Document Reviewed: 01/04/2021 [employer] Patient Education 2022 link bird. Follow Up Care 03/23/2023 10:22:20 With:MARYAM BEAVERS, Jean Paul Burton, URL Address: [facility] [address] , [place] [address]- [phone] When: Unknown Comments:sched cysto/urodynamics [facility] 12-20-2023 Evaluation note* Encounter Date Diagnosis Assessment [...] Edema of right ankle (ICD-10 - M25.471) [facility] Other 12-06-2023 Evaluation note* Encounter Date Diagnosis Assessment Notes Treatment Notes Treatment Clinical Notes May, Lumbar radiculopathy (ICD-10 - M54.16) [facility] Other 11-21-2023 Evaluation note* Encounter Date Diagnosis Assessment Notes Treatment Notes Treatment Clinical Notes Apr, Lumbar pain (ICD-10 - M54.50) Continue followup w chiropractor in 1 hr. XR order given. Discussed potential referral to pain management if needed. Will call w update. Taking motrin tid for pain. [facility] Other 11-15-2023 Evaluation note* Encounter Date Diagnosis [...] few weeks to go over the results. [facility] Other 10-26-2023 Evaluation note* Encounter Date Diagnosis Assessment Notes Treatment Notes Treatment Clinical Notes Mar, Anxiety, generalized (ICD-10 - F41.1) Skin exam normal. Suspect her anxiety is causing the itching sensation. Discussed medication and counseling. Followup in 1 month. [facility] Other 10-13-2023 Evaluation note* Encounter Date Diagnosis Assessment Notes Treatment Notes Treatment Clinical Notes Mar, Right ankle swelling (ICD-10 - M25.471) Discussed importance to r/o DVT. Consider referral based on US results. [facility] Other 09-27-2023 Evaluation note* Encounter Date Diagnosis Assessment Notes Treatment Notes Treatment Clinical Notes Feb, Essential hypertension (ICD-10 - I10) Discussed low bp today and how this can be linked to her symptoms of lightheadedness. Will hold chlorthalidone. Check bp daily. Call with readings. Followup in 1 month. [facility] Other 06-09-2023 Evaluation note* Encounter Date Diagnosis Assessment Notes Treatment Notes Treatment Clinical Notes Nov, Pruritus (ICD-10 - L29.9) Med could relieve itching and help her sleep Nov, Situational anxiety (ICD-10 - F41.8) Discussed medications and stress relief. Continue present chronic medications. [facility] Other 04-12-2023 Evaluation note* Encounter Date Diagnosis Assessment Notes Treatment Notes Treatment Clinical Notes Sep, Dysuria (ICD-10 - R30.0) [facility] Other 01-23-2023 Evaluation note* Encounter Date Diagnosis Assessment Notes Treatment Notes Treatment Clinical Notes Jun, Allergic cough (ICD-10 - R05.8) Discussed symptom management with Coricidin and Claritin. Call if fevers or shortness of breath occurs. Discussed masking at work for her own wellness as well as her coworkers and customers. [facility] Other 10-19-2022 Evaluation note* Encounter Date Diagnosis [...] get an MRI of the lumbar spine [facility] Other 10-18-2022 NotePROCEDURE: XR HIP LT 2 3V W PELVIS HISTORY: Left side sciatica ; low back and left hip pain for 2 weeks COMPARISON: None. FINDINGS: BONES:No fracture, acute abnormality, or significant arthropathy. SOFT TISSUES:No visible soft tissue swelling. EFFUSION:None visible. OTHER: Negative. IMPRESSION: 1. No acute bone abnormality or significant degenerative joint disease. Electronically authenticated by: KIRK CESAR Date: 2022-04-01 06:49[facility]06-01-2022 Evaluation note* Encounter Date Diagnosis Assessment Notes Treatment Notes Treatment Clinical Notes Nov, Other specified postprocedural states (ICD-10 - Z98.890) [facility] Other 05-16-2022 Evaluation note* Encounter Date Diagnosis Assessment Notes Treatment Notes Treatment Clinical Notes October, Primary osteoarthritis of left knee (ICD-10 - M17.12) [facility] Other 05-02-2022 Evaluation note* Encounter Date Diagnosis [...] poor healing. 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 I have [...] follow-up after this for further treatment options. [facility] Other 04-11-2022 Evaluation note* Encounter Date Diagnosis [...] follow-up after this for further treatment options. [facility] Other Chief complaint+Reason for visit Narrative* Chief Complaint Admit Date hip pain talk about referral, ear lavage August 16, 2024 1:59pm Reason for Visit Admit Date Lumbar pain August 16, 2024 1:59 pm Right hip pain August 16, 2024 1:59 pm [facility] Work Phone: Evaluation + Plan note Future Appointments Appointment Date:07/28/2023 09:00:00 AM Scheduled Provider: Location:[facility] Appointment Type:Urology FT Appointment Date:07/28/2023 10:15:00 AM Scheduled Provider: Location:[facility] Appointment Type:Urology FT [facility] evaluation + Plan note Future Appointments Appointment Date:10/16/2023 10:30:00 AM Scheduled Provider:Jean Paul URBAN MD Location:[facility] Future Appointments Appointment Date:04/22/2024 09:45:00 AM Scheduled Provider:Jean Paul URBAN MD Location:[facility] Appointment Type:URO Office Visit [facility] evaluation noteNo Contractor [employer] Other evaluation noteNo assessment information available [facility] Work Phone: evaluuxpmo note* Diagnosis Paresthesia- Primary Disturbance of skin [...] in this encounter [facility]* Diagnosis Radiculopathy, lumbar region- Primary Thoracic or lumbosacral neuritis or radiculitis, unspecified Paresthesia Disturbance of skin sensation documented in this encounter [facility]* Diagnosis Paresthesia- Primary Disturbance of skin sensation Radiculopathy, lumbar region Thoracic or lumbosacral neuritis or radiculitis, unspecified documented in this encounter [facility] HealthcareEvaluation note* Diagnosis Lumbosacral radiculopathy- Primary Thoracic or lumbosacral neuritis or radiculitis, unspecified Paresthesia Disturbance of skin sensation documented in this encounter [facility] HealthcareEvaluation note* Diagnosis Paresthesia- Primary Disturbance of skin sensation Radiculopathy, lumbar region Thoracic or lumbosacral neuritis or radiculitis, unspecified documented in this encounter [facility] HealthcareEvaluation note* Diagnosis Weakness of both lower extremities- Primary Lumbosacral radiculopathy Thoracic or lumbosacral neuritis or radiculitis, unspecified documented in this encounter [facility] HealthcareEvaluation note* Diagnosis Onset Date Resolution Status Admit Date Lumbar pain acute August 16 1:59pm Right hip pain acute August 16, 2024 1:59pm [facility] Work Phone: Evaluation note* Diagnosis Lumbar spondylosis- Primary Lumbosacral spondylosis without myelopathy Lumbosacral radiculopathy Thoracic or lumbosacral neuritis or radiculitis, unspecified Paresthesia Disturbance of skin sensation documented in this encounter [facility] HealthcareEvaluation note* Diagnosis Lumbar radiculopathy- Primary Thoracic or lumbosacral neuritis or radiculitis, unspecified Lumbar spondylosis Lumbosacral spondylosis without myelopathy Lumbosacral radiculopathy Thoracic or lumbosacral neuritis or radiculitis, unspecified Paresthesia Disturbance of skin sensation documented in this encounter [facility] CenterHistory general Narrative - Reported* Type Description Date Medical History Benign essential HTN Medical History Hypercholesterolemia Surgical History colonoscopy Surgical History partial hysterectomy Hospitalization History see above [facility] Other History general Narrative - Reported* Type [...] knee surgery 10/2021 Hospitalization History see above [facility] [employer] Other Hospital course Narrative No data available for this section [facility] progress note No data available for this section [facility] reason for referral (narrative)No reason for referral information available[facility] Work Phone: Reason for visit NarrativeLOWER BACK - REFERRAL FOR [facility] [employer] Other Reason for visit Narrative* Consultation (Routine) - Closed Specialty Diagnoses / Procedures Referred By Gemma andrew Referred To Contact Neurology Diagnoses Polyneuropathy, unspecified Procedures [place] OFFICE/OUTPATIENT NEW LOW MDM 30 MINUTES Jeffy Ramos MD [address] [place] [address] Phone: tel: fax: Mustapha Mccauley, DO [address] [address] Phone: tel: fax: Referral ID Status Reason Start Date Expiration Date V isits Requested Visits Authorized [id number] Closed Consult and Treat 03/22/2024 09/18/2024 1 1 [facility]Reason for visit Narrative* Consultation (Routine) - Authorized Specialty Diagnoses / Procedures Referred By Gemma andrew Referred To Contact Physical Therapy Diagnoses Paresthesia Procedures [place] OFFICE/OUTPATIENT NEW HIGH MDM 60 MINUTES Mustapha Mccauley DO [address] [place] [address] Phone: tel: fax: [facility] [address] [address] Phone: tel: fax: Referral ID Status Reason Start Date Expiration Date Visits Requested Visits Authorized [id number] Authorized Specialty Services Required 04/19/2024 10/16/2024 99 99 [facility] HealthcareReason for visit Narrative* Consultation (Routine) - Authorized Specialty Diagnoses / Procedures Referred By Contac t Referred To Contact Physical Therapy Diagnoses Paresthesia Procedures [place] OFFICE/OUTPATIENT [facility] HIGH MDM 60 MINUTES Mustapha Mccauley DO [address] [place] [address] Phone: tel: fax: [facility] [address] [facility] [address] [place] [address] Phone: tel: fax: Referral ID Status Reason Start Date Expiration Date Visits Requested Visits Authorized [id number] Authorized Specialty Services Required 04/19/2024 06/14/2024 99 99 [facility] HealthcareReason for visit Narrative* Injection (Routine) - Closed Specialty Diagnoses / Procedures Referred By Contac t Referred To Contact Neurology Diagnoses Lumbar spondylosis Lumbosacral radiculopathy Paresthesia Procedures Nerve Block Paula Benson, QUINTON [address] [place] [address] Phone: tel: Referral ID Status Reason Start Date Expiration Date Visits Re quested Visits Authorized [id number] Closed 10/11/2024 01/05/2025 1 1 [facility] Healthcare Family History Relationship Condition Age at [...] disease Unknown mother Malignant neoplasm Unknown Unknown Relationship Condition Age at Onset Recorded Date/T elizabeth brother Chronic obstructive pulmonary disease Unk nown Diabetes mellitus Unknown father Unknown Heart disease Unknown Pulmonary emphysema Unknown mother Unknown Malignant neoplasm of kidney Unknown Advance Directives Advance Directive Response Recorded Date/ Time Advance Directives No July 08, 2020 7:33pm Advance Directive Response Recorded Date/ Time Advance Directives No July 08, 2020 6:33pm Summary Purpose Reason for Referral Reason lumbar pain Diagnosis 1 Lumbar radiculopathy (M54.16) Referral Organization [facility] kavin Referring Provider First Name Jeffy Referring Provider Last Name Richard Referring Provider Specialty Family Medi cine Referred Organization [facility] Referred Address [address] [place], [place],[address] Referred Provider Specialty Pain Medicin e Referral Priority Routine Reason *Waiting for appt swelling and varicosities Diagnosis 1 Right ankle swelling (M25.471) Referral Organization [facility] Referring Provider First Name Jeffy Referring Provider Last Name Richard Referring Provider Specialty Family Medi cine Referred Organization [facility] Vascular Surge ry Referred Provider [facility] Referred Address [address] [facility] [facility] [address],[place], [place],[address] Referred Provider Specialty Vascular Navjot soledad Referral Priority Routine General Notes BaldomeroYuridia kang 12:53:57 PM >received today, faxed P2P Chief Complaint and Reason for Visit Chief Complaint i83.813 Chief Complaint Admit Date Ear Cleaning December 27, 2024 9:27 am Chief Complaint Admit Date Ear Cleaning December 27, 2024 9:27 am Amb Documentation January 16, 2025 10: 25am 3-4 month follow up January 23, 2025 8: 27am Reason for Visit Admit Date Disorder of right middle ear December 27, 2024 9:27am Excessive cerumen in left ear canal December 27, 2024 9:27am DDD (degenerative disc disease), lumbar January 23, 2025 8:27am Lumbosacral radiculopathy January 23, 2 025 8:27am Chief Complaint Admit Date Ear Cleaning December 27, 2024 9:27 am Amb Documentation January 16, 2025 10: 25am 3-4 month follow up January 23, 2025 8: 27am EPI- BILAT L5-- APPROVED#[id number] A ugust 2024 1:15pm Chief Complaint Admit Date Ear Cleaning December 27, 2024 9:27 am Amb Documentation January 16, 2025 10: 25am 3-4 month follow up January 23, 2025 8: 27am EPI- BILAT L5-- APPROVED#[id number] A ugust 2024 1:15pm [facility] ER f/u February 02, 2025 2: 48pm Reason for Visit Admit Date Disorder of right middle ear Claudia 15th, 2025 9:27am Excessive cerumen in left ear canal December 27, 2024 9:27am DDD (degenerative disc disease), lumbar January 23, 2025 8:27am Lumbosacral radiculopathy January 23, 2 025 8:27am Lumbar radiculopathy January 31, 2025 1 :15pm Chief Complaint Admit Date Ear Cleaning December 27, 2024 9:27 am Amb Documentation January 16, 2025 10: 25am 3-4 month follow up January 23, 2025 8: 27am EPI- BILAT L5-- APPROVED#[id number] A ugust 2024 1:15pm [facility] ER f/u [...] abscess w/o bleeding February 02, 2025 2:48pm Additional Source Comments REASON FOR VISIT (unrecogniz ed section and content) Reason Onset Date Comments PT Initial Eval 04/20/2024 Tried to contact to schedule PT Eval for Paresthesia; had to lm requesting a call back. Call Back 04/20/2024 She called my g she is off / and ; I [...] 2024 End: December 27, 2024 Team Status: Active Member Role Status Dates Jeffy Ramos MD Primary Care Provider Active Start: January 14, 2025 Christian Pillai DO Attending Provider Active S tart: January 14, 2025 Team Status: Active Member Role Status Dates Jeffy Ramos MD Primary Care Provider Active Start: January 16, 2025 Cristela Turner CMA Attending Provider Active Start: January 16, 2025 Team Status: Inactive Member Role Status Dates Jeffy Ramos MD Primary Care Provider Active Start: January 23, 2025 End: January 23, 2025 Paula Benson , CROZE MACHINE OPERATOR-COMPREHENSIVE OPHTHALMOLOGIST-C Attending Provider Active Start: January 23, 2025 End: January 23, 2025 Team Status: Inactive Member Role Status Dates Jeffy Ramos MD Primary Care Provider Active Start: January 31, 2025 End: January 31, 2025 Mustapha Mccauley DO Attending Provider Active Start: January 31, 2025 End: January 31, 2025 Team Status: Inactive Member Role Status Dates Jeffy Ramos MD Primary Care Provider Active Start: February 02, 2025 End: February 02, 2025 Jeffy Ramos MD Attending Provider Active St art: February 02, 2025 End: February 02, 2025 Team Status: Inactive Member Role Status Dates Jeffy Ramos MD Primary Care Provider Active Start: February 20, 2025 End: February 20, 2025 Jeffy Ramos MD Attending Provider Active St art: February 20, 2025 End: February 20, 2025 Team Status: Active Member Role Status Dates Jeffy Ramos MD Primary Care Provider Active Team Status: Active Member Role Status Dates Jeffy Ramos MD Primary Care Provider Active Start: November 10, 2024 Cynthia Barry Attending Provider Active Start: November 10, 2024 [...] Active Gucci Meyers MD Attending Provider Active Gusset Folder Relationship Specialty Start Date End Date Jeffy Ramos MD [address] [place] [facility] [place] [address] PCP - General Family Medicine 02/25/24 Gusset Folder Relationship Specialty Start Date End Date Jeffy Ramos MD [address] [place] [facility] [place] [address] PCP - General Family Medicine 02/25/24 Gusset Folder Relationship Specialty Start Date End Date Jeffy Ramos MD [address] [place] [facility] [place] [address] PCP - General Family Medicine 02/25/24 Gusset Folder Relationship Specialty Start Date End Date Jeffy Ramos MD [address] [place] [facility] [place] [address] PCP - General Family Medicine 02/25/24 Gusset Folder Relationship Specialty Start Date End Date Jeffy Ramos MD [address] [place] [facility] [place] [address] PCP - General Family Medicine 02/25/24 Gusset Folder Relationship Specialty Start Date End Date Jeffy Ramos MD [address] [place] [facility] [place] [address] PCP - General Family Medicine 02/25/24 Gusset Folder Relationship Specialty Start Date End Date Jeffy Ramos MD [address] [place] [facility] [place] [address] PCP - General Family Medicine 02/25/24 Gusset Folder Relationship Specialty Start Date End Date Jeffy Ramos MD [address] [place] [facility] [place] [address] PCP - General Family Medicine 02/25/24 Gusset Folder Relationship Specialty Start Date End Date Jeffy Ramos MD [address] [place] [facility] [place] [address] PCP - General Family Medicine 02/25/24 Gusset Folder Relationship Specialty Start Date End Date Jeffy Ramos MD [address] [place] [facility] [place] [address] PCP - General Family Medicine 02/25/24 Mustapha Mccauley DO [address] [place] [address] Referring Physician Neurology 05/17/24 Mer Rodriguez NP [address] [place] [address] Nurse Practitioner Neurology 05/17/24 Gusset Folder Relationship Specialty Start Date End Date Jeffy Ramos MD [address] [place] [facility] [place] [address] PCP - General Family Medicine 02/25/24 Mustapha Mccauley DO [address] [place] [address] Referring Physician Neurology 05/17/24 Mer Rodriguez NP [address] [place] [address] Nurse Practitioner Neurology 05/17/24 Paula Benson NP [address] [place] [address] Nurse Practitioner Neurology 05/17/24 Gusset Folder Relationship Specialty Start Date End Date Jeffy Ramos MD [address] [place] [facility] [place] [address] PCP - General Family Medicine 02/25/24 Mustapha Mccauley DO [address] [place] [address] Referring Physician Neurology 05/17/24 Mer Rodriguez NP [address] [place] [address] Nurse Practitioner Neurology 05/17/24 Paula Benson NP [address] [place] [phone] Nurse Practitioner Neurology 05/17/24 Gusset Folder Relationship Specialty Start Date End Date Jeffy Ramos MD [address] [place] [facility] [place] [address] PCP - General Family Medicine 02/25/24 Mustapha Mccauley DO [address] [place] [address] Referring Physician Neurology 05/17/24 Mer Rodriguez NP [address] [place] [address] Nurse Practitioner Neurology 05/17/24 Paula Benson NP [address] [place] [phone] Nurse Practitioner Neurology 05/17/24 Gusset Folder Relationship Specialty Start Date End Date Jeffy Ramos MD [address] [place] [facility] [place] [address] PCP - General Family Medicine 02/25/24 Mustapha Mccauley DO [address] [id number] Referring Physician Neurology 05/17/24 Mer Rodriguez NP [address] [phone] Nurse Practitioner Neurology 05/17/24 Paula Benson NP [address] [address] Nurse Practitioner Neurology 05/17/24 Team Status: Inactive Member Role Status Dates Jeffy Ramos MD Primary Care Provide r, Attending Provider Active Start: August 16, 2024 End: August 16, 2024 Team Status: Inactive Member Role Status Dates Jeffy Ramos MD Primary Care Provider Active Start: September 06, 2024 End: September 06, 2024 Mustapha Mccauley DO Attending Provider Active Start: September 06, 2024 End: September 06, 2024 Gusset Folder Relationship Specialty Start Date End Date Jeffy Ramos MD [address] [place], [place] [address], [place] [address] PCP - General Family Medicine 02/25/24 Mustapha Mccauley DO [address], [facility] Referring Physician Neurology 05/17/24 Mer Rodriguez NP [address] [place] [address] Nurse Practitioner Neurology 05/17/24 Paula Benson NP [address] [phone] Nurse Practitioner Neurology 05/17/24 Gusset Folder Relationship Specialty Start Date End Date Jeffy Ramos MD [address] [facility] [place] [address] PCP - General Family Medicine 02/25/24 Mustapha Mccauley DO [address] [address] [place] [address] Referring Physician Neurology 05/17/24 Mer Rodriguez NP [address] [address] [place] [address] Nurse Practitioner Neurology 05/17/24 Paula Benson NP [address] [address] [place] [phone] Nurse Practitioner Neurology 05/17/24 Gusset Folder Relationship Specialty Start Date End Date Jeffy Ramos MD PCP - General Family Medicine 02/25/24 Mustapha Mccauley DO [address] [address] [place] [address] Referring Physician Neurology 05/17/24 Mer Rodriguez NP [address] [address] [place] [address] Nurse Practitioner Neurology 05/17/24 Paula Benson NP [address] [address] [place] [phone] Nurse Practitioner Neurology 05/17/24 Gusset Folder Relationship Specialty Start Date End Date Jeffy Ramos MD PCP - General Family Medicine 02/25/24 Mustapha Mccauley DO [address] [address] [place] [address] Referring Physician Neurology 05/17/24 Mer Rodriguez, QUINTON [address] [place] [address] Nurse Practitioner Neurology 05/17/24 Paula Benson, QUINTON [address] [place] [address] Nurse Practitioner Neurology 05/17/24 Team Status: Active Member Role Status Dates Jeffy Ramos MD Primary Care Provider Active Start: January 14, 2025 Christian Pillai DO Attending Provider Active S tart: January 14, 2025 Team Status: Active Member Role Status Dates Jeffy Ramos MD Primary Care Provider Active Start: January 16, 2025 Cristela Turner CMA Attending Provider Active Start: January 16, 2025 Team Status: Inactive Member Role Status Dates Jeffy Ramos MD Primary Care Provider Active Start: January 23, 2025 End: January 23, 2025 Paula Benson , CROZE MACHINE OPERATOR-COMPREHENSIVE OPHTHALMOLOGIST-C Attending Provider Active Start: January 23, 2025 End: January 23, 2025 Team Status: Inactive Member Role Status Dates Jeffy Ramos MD Primary Care Provider Active Start: January 31, 2025 End: January 31, 2025 Mustapha Mccauley DO Attending Provider Active Start: January 31, 2025 End: January 31, 2025 Team Status: Inactive Member Role Status Dates Jeffy Ramos MD Primary Care Provider Active Start: February 02, 2025 End: February 02, 2025 Jeffy Ramos MD Attending Provider Active St art: February 02, 2025 End: February 02, 2025 Team Status: Inactive Member Role Status Dates Jeffy Ramos MD Primary Care Provider Active Start: February 20, 2025 End: February 20, 2025 Jeffy Ramos MD Attending Provider Active St art: February 20, 2025 End: February 20, 2025 Goals (unrecognized section and content) Goals may be documented in a n alternate section INFORMATION SOURCE (unrecogn ized section and content) DATE CREATED AUTHOR 09/30/2022 [facility] DATE CREATED AUTHOR AUTHOR'S ORGANIZ ATION 05/06/2024 [facility] DATE CREATED AUTHOR AUTHOR'S ORGANIZ ATION 09/10/2024 [facility] DATE CREATED AUTHOR AUTHOR'S ORGANIZ ATION 10/12/2024 [facility] DATE CREATED AUTHOR AUTHOR'S ORGANIZ ATION 12/18/2024 [facility] FOR RECORDS PERTAINING TO PATIENTS WHO [...] BE BASED ON THE PRIMARY CLINICAL RECORDS. [employer] provides no warranty or guarantee of the accuracy or completeness of information in this document.
[2025-03-02 11:35] LABS: Alanine Aminotransferase 23 U/L (14-59); Albumin Globulin Ratio 0.9; Albumin Level 3.4 g/dL (3.4-5.0); Alkaline Phosphatase 78 U/L (46-116); Aspartate Amino Transferase 18 U/L (15-37); Cholesterol 161 mg/dL (<=200); Globulin 4.0 g/dL; HDL Cholesterol 59 mg/dL (40-60); Total Protein 7.4 g/dL (6.4-8.2); Triglycerides 144 mg/dL (<=150); VLDL CHOLESTEROL 28.8 mg/dL
== END 2025-03-02 09:01 | disposition home or self-care (01) ==
LOC: LAB 09:01
PROVIDERS: PCP Family Medicine; Visit Provider Internal Medicine Interventional Cardiology
DX: E78.2 Mixed hyperlipidemia (principal)
CPT/HCPCS: 36415; 80061; 80076

== ENCOUNTER 2025-03-02 09:04 | Outpatient (OUT) | payer OTHER, SELFPAY ==
--- OUTSIDE RECORDS SUMMARY | 2025-02-20 11:00 | XMS_ITS | Continuity of Care Document ---
Author Organization [facility] Address [address] [place] [address] Phone Care Team Providers Care Electric Power Superintendent Name Role Phone Farzana Aldana MD Primary Care Provider Farzana Aldana MD Attending Provider [phone] Christian Pillai DO Attending Provider [phone] Cristela Turner CMA Attending Provider Paula Lake Attending Provider + Ramez Mccauley DO Attending Provider Care Teams Patient Care Team Team Status: Active Member Role Status Dates Farzana Aldana MD Primary Care Provider Active Visit Care Team Team Status: Inactive Member Role Status Dates Farzana Aldana MD Primary Care Provider Active Start: December 27, 2024 End: December 27, 2024 Farzana Aldana MD Attending Provider Active St art: December 27, 2024 End: December 27, 2024 Visit Care Team Team Status: Active Member Role Status Dates Farzana Aldana MD Primary Care Provider Active Start: January 14, 2025 Christian Pillai DO Attending Provider Active S tart: January 14, 2025 Visit Care Team Team Status: Active Member Role Status Dates Farzana Aldana MD Primary Care Provider Active Start: January 16, 2025 Cristela Turner CMA Attending Provider Active Start: January 16, 2025 Visit Care Team Team Status: Inactive Member Role Status Dates Farzana Aldana MD Primary Care Provider Active Start: January 23, 2025 End: January 23, 2025 LEXY Nava-C Attending Provider Active Start: January 23, 2025 End: January 23, 2025 Visit Care Team Team Status: Inactive Member Role Status Dates Farzana Aldana MD Primary Care Provider Active Start: January 31, 2025 End: January 31, 2025 Ramez Mccauley DO Attending Provider Active Start: January 31, 2025 End: January 31, 2025 Visit Care Team Team Status: Inactive Member Role Status Dates Farzana Aldana MD Primary Care Provider Active Start: February 02, 2025 End: February 02, 2025 Farzana Aldana MD Attending Provider Active St art: February 02, 2025 End: February 02, 2025 Patient Care Team Team Status: Inactive Member Role Status Dates Farzana Aldana MD Primary Care Provider Active Start: February 20, 2025 End: February 20, 2025 Farzana Aldana MD Attending Provider Active St art: February 20, 2025 End: February 20, 2025 Chief Complaint and Reason for Visit Chief Complaint Admit Date Ear Cleaning December 27, 2024 9:27 am Amb Documentation January 16, 2025 10: 25am 3-4 month follow up January 23, 2025 8: 27am EPI- BILAT L5-- APPROVED#[id number] A ugust 2024 1:15pm [facility] ER f/u February 02, 2025 2: 48pm Cough, Green Mucus February 20, 2025 2:17pm Reason for Visit Admit Date Disorder of right middle ear December 27, 2024 9:27am Excessive cerumen in left ear canal December 27, 2024 9:27am DDD (degenerative disc disease), lumbar January 23, 2025 8:27am Lumbosacral radiculopathy January 23, 2 025 8:27am Lumbar radiculopathy January 31, 2025 1 :15pm Diverticulitis large intesti ne w/o perforation or abscess w/o bleeding February 02, 2025 2:48pm Allergies, Adverse Reactions, Alerts Allergen Type Severity Reaction Last Updated Verified Status Comments Sulfa (Sulfonamide Antibiotics) Allergy Unknown Rash February 20, 2025 2:33pm Yes Active Onset Date: 10/18/2018 Social History Smoking Status Status Start Date End Date Date of Observa tion Never smoked tobacco (finding) April 15, 2024 1:47pm Observation Status Observation Response Date of Response Legal Sex Female (finding) Sex Assigned At Female January, 89 Family History Relationship Condition Age at Onset Recorded Date/T elizabeth brother Chronic obstructive pulmonary disease Unk nown Diabetes mellitus Unknown father Unknown Heart disease Unknown Pulmonary emphysema Unknown mother Unknown Malignant neoplasm of kidney Unknown Problems Active Problems Medical Problem Onset Date Status Comments Sciatica, left side Unknown Active Elevated glucose Unknown Active Edema of both lower extremities Unknown Active COVID Unknown Active Anxiety, generalized Unknown Active Primary osteoarthritis of left knee Unknown Activ e Lumbar radiculopathy Unknown Active Lumbosacral radiculopathy Unknown Active Diverticulitis large intesti ne w/o perforation or abscess w/o bleeding Unknown Active Viral URI with cough Unknown Active Sinusitis, acute maxillary Unknown Active Fatigue Unknown Active Acute sinusitis Unknown Active Benign essential HTN Unknown Active Dyslipidemia Unknown Active Disorder of right middle ear Unknown Active Excessive cerumen in left ear canal Unknown Activ e Hypercholesterolemia Unknown Active Peripheral neuropathy Unknown Active Visit for suture removal Unknown Active DDD (degenerative disc disease), lumbar Unknown A ctive Situational anxiety Unknown Active Weakness Unknown Active Lumbar pain Unknown Active Osteoarthritis of left knee Unknown Active Viral URI Unknown Active Right hip pain Unknown Active Impacted cerumen of both ears Unknown Active Balance disorder Unknown Active Insomnia, persistent Unknown Active Hypokalemia Unknown Active Iron deficiency Unknown Active Inactive/Resolved Problems Medical Problem Onset Date Status Comments S/P arthroscopic knee surgery Unknown Resolved Problem List clean-up per request of Phys. EHR Cmte Medications Medication Status Dose Units Route Directions Qty Days St art Date Stop Date End Date Instructions Adherence Nystatin 100,000 unit/gram cream Discont inued 1 APPLIC TOPICA L Twice daily October 14, 2023 12:05p m Sept [facility] 2023 12:29 pm Free[employer] application Externally Twice a day; Note: Source Status: Not-Takingund efinedPRN; Refills: 0; Provider: Jovan Townsend n 40 mg tablet Active 40 MG PO Daily 2024 11:14a m Complies with drug therapy Fluocinonid e 0.05 % cream Active 1 APPLIC TOPICA L 2-4 TIMES PER DAY as needed for itching January 20, 2025 10:44a m Complies with drug therapy Carvedilol 25 mg tablet Active 25 MG PO Twice daily October 16, 2021 12:00a m Complies with drug therapy Meloxicam 15 mg tablet Discont inued 15 MG PO Every morning October 16, 2021 12:00a m August 14, 2023 12:19 pm Pantoprazol e 40 mg tablet,funmi yed release (DR/EC) Active 40 MG PO Every morning October 16, 2021 12:00a m Complies with drug therapy Hydrochloro thiazide 25 mg tablet Discont inued 25 MG PO Every morning October 16, 2021 12:00a m August 14, 2023 12:19 pm Rosuvastati n 20 mg tablet Discont inued 20 MG PO Daily at bedtime October 16, 2021 12:00a m January 02, 2024 9:35a m Oxycodone-A cetaminophe n (Percocet) 5-325 mg tablet Discont inued 1 TAB PO Q4H 30 7 October 22, 2021 January 02, 2024 9:34a m Rosuvastati n 20 mg tablet Discont inued 20 MG PO .QOD January 02, 2024 9:34am Novem 2023 1:44p m Escitalopra m Oxalate 10 mg tablet Discont inued 10 MG PO Daily August 14, 2023 1:00am January 02, 2024 9:35a m Lisinopril 40 mg tablet Active 40 MG PO Daily August 14, 2023 1:00am Complies with drug therapy Nitroglycer in 0.4 mg tablet, sublingual Discont inued 0.4 MG SUBLIN GUAL August 14, 2023 1:00am January 05, 2024 10:00 am Nystatin 100,000 unit/gram cream Discont inued 1 APPLIC TOPICA L Twice daily August 14, 2023 1:00am October 14, 2023 12:06 pm [employer] application Externally Twice a day; Note: Source Status: Not-Takingund efinedPRN; Refills: 0; Provider: Jovan Smith Aspirin 81 mg tablet,funmi yed release (DR/EC) Active 81 MG PO Daily August 14, 2023 1:00am Complies with drug therapy Azithromyci n 250 mg tablet Discont inued 0 PO .COMPLEX 6 January 05, 2024 12:00a m Septjairo mbzina 2023 12:11 pm For 250 mg dose pack: take 500 mg today (day 1), then 250 mg for 4 days (days 2-5) PO Hydrochloro thiazide 25 mg tablet Active 25 MG PO Every morning 2023 12:00a m Complies with drug therapy Nitroglycer in 0.3 mg tablet, sublingual Active 0.3 MG SUBLIN GUAL Q5M as needed 2023 12:00a m do not exceed 3 doses per episode Complies with drug therapy Fluocinonid e 0.05 % cream Discont inued 1 APPLIC TOPICA L 2-4 TIMES PER DAY as needed for itching August 16, 2024 1:00am Augus t 2024 10:44 am Azithromyci n 250 mg tablet Active 0 PO .COMPLEX 6 2024 12:00a m For 250 mg dose pack: take 500 mg today (day 1), then 250 mg for 4 days (days 2-5) PO Complies with drug therapy Rosuvastati n 40 mg tablet Discont inued 40 MG PO Daily b er 2023 12:00a m Febru 2024 11:15 am Ezetimibe 10 mg tablet Active 10 MG PO Daily b er 2023 12:00a m Complies with drug therapy Doxycycline Hyclate 100 mg capsule Discont inued 100 MG PO Twice daily 2023 1:00am August 16, 2024 3:15p m Carvedilol 12.5 mg tablet Active 12.5 MG PO January 23, 2025 12:00a m Complies with drug therapy Nystatin 100,000 unit/gram cream Active 1 APPLIC TOPICA L Twice daily February 02, 2025 3:26pm FreeText[employer] application Externally Twice a day; Note: Source Status: Not-Takingund efinedPRN; Refills: 0; Provider: Jovan Smith Complies with drug therapy Immunizations Immunization Event Date Not Given Reason Dose Number [id number] Lot Number Vaccine Information Statement (VIS) Detail Administration Location COVID-19 [id number] ([facility]) March 22, 2022 COVID-19 [place] ([place]) August 28, 2020 COVID-19 mRNA, Comirnaty (Pfizer) September 18, 2020 COVID-19 mRNA, Comirnaty (Pfizer) September 28, 2020 COVID-19 mRNA, Comirnaty (Pfizer) May 23, 2021 Fluzone TIV High-Dose [id number]+ April 05, 2024 [id number] [facility] influenza, unspecified formulation March 09, 2018 influenza, unspecified formulation March 22, 2022 Pneumococcal Conjugate Vaccine, 13 valent June 05, 2021 Pneumococcal Conjugate Vaccine, 20 valent July 23, 2022 Tetanus, Diphtheria adult, 5 Lf pres free abs April 09, 2015 Tetanus, Diphtheria adult, 5 Lf pres free abs February 29, 2016 Relevant Diagnostic Tests and/or Laboratory Data Laboratory Results Test Collection Date/Time Result Date/Time Result Interpretation Reference Range Result Comment Performing Site Urine Microscopic Review January 14, 2025 2:40pm January 14, 2025 2:40pm NO Lactic Acid Level January 14, 2025 3:56pm January 14, 2025 3:56pm 0.9 mmol/L 0.4-2.0 Lipase January 14, 2025 3:56pm January 14, 2025 3:56pm 26.0 U/L 16.0-77.0 Anion Gap January 14, 2025 3:56pm January 14, 2025 3:56pm 9.1 Basophils # (Auto) January 14, 2025 3:56pm January 14, 2025 3:56pm 0.0 10 3/uL 0.0-0.1 Urine Bilirubin January 14, 2025 2:40pm January 14, 2025 2:40pm NEGATIVE NEGATIVE Albumin/Melani bulin Ratio January 14, 2025 3:56pm January 14, 2025 3:56pm 0.9 Basophils (%) (Auto) January 14, 2025 3:56pm January 14, 2025 3:56pm 0.4 % 0.2-2.0 Urine Occult Blood January 14, 2025 2:40pm January 14, 2025 2:40pm NEGATIVE NEGATIVE Albumin January 14, 2025 3:56pm January 14, 2025 3:56pm 3.6 g/dL 3.4-5.0 Eosinophils # (Auto) January 14, 2025 3:56pm January 14, 2025 3:56pm 0.2 10 3/uL 0.0-0.7 Urine Appearance January 14, 2025 2:40pm January 14, 2025 2:40pm CLEAR CLEAR Alkaline Phosphatase January 14, 2025 3:56pm January 14, 2025 3:56pm 101 U/L 46-116 Eosinophils (%) (Auto) January 14, 2025 3:56pm January 14, 2025 3:56pm 2.3 % 0.9-7.0 Urine Color January 14, 2025 2:40pm January 14, 2025 2:40pm LT. YELLOW YELLOW Alanine Aminotransf erase (ALT/SGPT) January 14, 2025 3:56pm January 14, 2025 3:56pm 26 U/L 14-59 Hematocrit January 14, 2025 3:56pm January 14, 2025 3:56pm 35.7 % Below low normal 36.0-48.0 Urine Glucose (UA) January 14, 2025 2:40pm January 14, 2025 2:40pm NEGATIVE mg/dL NEGATIVE Aspartate Amino Transf (AST/SGOT) January 14, 2025 3:56pm January 14, 2025 3:56pm 18 U/L 15-37 Hemoglobin January 14, 2025 3:56pm January 14, 2025 3:56pm 12.2 g/dL 12.0-16.0 Urine Ketones January 14, 2025 2:40pm January 14, 2025 2:40pm NEGATIVE mg/dL NEGATIVE BUN/Creatin ine Ratio January 14, 2025 3:56pm January 14, 2025 3:56pm 25.3 Immature Granulocyte # (Auto) January 14, 2025 3:56pm January 14, 2025 3:56pm 0.03 10 3/uL 0.00-0.03 Urine Leukocyte Esterase January 14, 2025 2:40pm January 14, 2025 2:40pm NEGATIVE NEGATIVE Blood Urea Nitrogen January 14, 2025 3:56pm January 14, 2025 3:56pm 22.0 mg/dL Above high normal 7.0-18.0 Immature Granulocyte % (Auto) January 14, 2025 3:56pm January 14, 2025 3:56pm 0.4 % 0.0-0.5 Urine Nitrite January 14, 2025 2:40pm January 14, 2025 2:40pm NEGATIVE NEGATIVE Calcium Level January 14, 2025 3:56pm January 14, 2025 3:56pm 9.8 mg/dL 8.5-10.1 Lymphocytes # (Auto) January 14, 2025 3:56pm January 14, 2025 3:56pm 1.3 10 3/uL 1.2-3.8 Urine pH January 14, 2025 2:40pm January 14, 2025 2:40pm 6.0 5.0-9.0 Chloride Level January 14, 2025 3:56pm January 14, 2025 3:56pm 100 mmol/L 98-107 Lymphocytes (%) (Auto) January 14, 2025 3:56pm January 14, 2025 3:56pm 15.3 % Below low normal 20.5-60.0 Urine Protein January 14, 2025 2:40pm January 14, 2025 2:40pm NEGATIVE mg/dL NEG/TRACE Carbon Dioxide Level January 14, 2025 3:56pm January 14, 2025 3:56pm 33.4 mmol/L Above high normal 21.0-32.0 Mean Corpuscular Hemoglobin January 14, 2025 3:56pm January 14, 2025 3:56pm 28.8 pg 26.7-34.0 Urine Specific [place] January 14, 2025 2:40pm January 14, 2025 2:40pm 1.025 1.005-1.02 5 Creatinine January 14, 2025 3:56pm January 14, 2025 3:56pm 0.87 mg/dL 0.55-1.02 Mean Corpuscular Hemoglobin Concent January 14, 2025 3:56pm January 14, 2025 3:56pm 34.2 g/dL 29.9-35.2 Urine Urobilinoge n January 14, 2025 2:40pm January 14, 2025 2:40pm 0.2 EU/dL 0.2-1.0 Estimated GFR () January 14, 2025 3:56pm January 14, 2025 3:56pm >60 >=60 mL/min/1.7 3m 2 Mean Corpuscular Volume January 14, 2025 3:56pm January 14, 2025 3:56pm 84.4 fL 81.0-99.0 Estimated GFR (Non-Sondra n Austrian January 14, 2025 3:56pm January 14, 2025 3:56pm >60 >=60 mL/min/1.7 3m 2 Monocytes # (Auto) January 14, 2025 3:56pm January 14, 2025 3:56pm 0.9 10 3/uL Above high normal 0.3-0.8 Globulin January 14, 2025 3:56pm January 14, 2025 3:56pm 3.9 g/dL Monocytes (%) (Auto) January 14, 2025 3:56pm January 14, 2025 3:56pm 10.8 % 1.7-12.0 Glucose Level January 14, 2025 3:56pm January 14, 2025 3:56pm 93 mg/dL 74-106 Mean Platelet Volume January 14, 2025 3:56pm January 14, 2025 3:56pm 9.2 fL Below low normal 9.5-13.5 Potassium Level January 14, 2025 3:56pm January 14, 2025 3:56pm 3.5 mmol/L 3.5-5.1 Neutrophils # (Auto) January 14, 2025 3:56pm January 14, 2025 3:56pm 6.0 10 3/uL 1.4-6.5 Sodium Level January 14, 2025 3:56pm January 14, 2025 3:56pm 139 mmol/L 136-145 Neutrophils (%) (Auto) January 14, 2025 3:56pm January 14, 2025 3:56pm 70.8 % 43.0-75.0 Total Bilirubin January 14, 2025 3:56pm January 14, 2025 3:56pm 0.7 mg/dL 0.2-1.0 Platelet Count January 14, 2025 3:56pm January 14, 2025 3:56pm 204 10 3/uL 150-450 Total Protein January 14, 2025 3:56pm January 14, 2025 3:56pm 7.5 g/dL 6.4-8.2 Red Blood Count January 14, 2025 3:56pm January 14, 2025 3:56pm 4.23 10 6/uL 4.20-5.40 Red Cell Distributio n Width January 14, 2025 3:56pm January 14, 2025 3:56pm 13.6 % 11.0-15.0 Corrected White Blood Count January 14, 2025 3:56pm January 14, 2025 3:56pm 8.4 10 3/uL 4.0-11.0 Vital Signs Vital Reading Result Reference Range Collection Date/Time Height 59 [in_i] December 27, 2024 9:28am Weight 79.37 kg December 27, 2024 9:28am Heart Rate 77 /min 60-100 December 27, 2024 9:28am BP Systolic 100 mm[Hg] 100-140 December 27, 2024 9:28am BP Diastolic 60 mm[Hg] 60-100 December 27, 2024 9:28am BMI (Body Mass Index) 35.3 kg/m2 December 132024 9:28am Height 59 [in_i] January 23 8:35am Weight 77.56 kg January 23 8:35am Heart Rate 71 /min 60-100 January 23 8:35am Respiratory rate 16 /min 12-24 January 8:35am Oxygen saturation by Pulse oximetry 98 % 95-100 January 23, 2025 8: 35am BP Systolic 130 mm[Hg] 100-140 January 23, 8:35am BP Diastolic 82 mm[Hg] 60-100 January 23, 8:35am BMI (Body Mass Index) 34.5 kg/m2 January 23, 2025 8:35am Heart Rate 73 /min 60-100 January 31 1:51pm Oxygen saturation by Pulse oximetry 97 % 95-100 January 31, 2025 1: 51pm BP Systolic 136 mm[Hg] 100-140 January 31, 1:51pm BP Diastolic 82 mm[Hg] 60-100 January 31 1:51pm Height 59 [in_i] February 02 2:58pm Weight 77.56 kg February 02 2:58pm Heart Rate 61 /min 60-100 February 02 2:58pm BP Systolic 121 mm[Hg] 100-140 February 02 2:58pm BP Diastolic 72 mm[Hg] 60-100 February 02 2:58pm BMI (Body Mass Index) 34.5 kg/m2 February 02, 2025 2:58pm Height 59 [in_i] February 20, 2025 2:31pm Weight 77.33 kg February 20, 2025 2:31pm Body Temperature 98.1 [degF] 97.6-99.0 February 202024 2:31pm Heart Rate 68 /min 60-100 February 20, 2025 2:31pm Oxygen saturation by Pulse oximetry 97 % 95-100 February 20, 2025 2:31pm BP Systolic 88 mm[Hg] 100-140 February 20, 2025 2:31pm BP Diastolic 55 mm[Hg] 60-100 February 20, 2025 2:31pm BMI (Body Mass Index) 34.4 kg/m2 Sept2024 2:31pm Advance Directives Advance Directive Response Recorded Date/ Time Advance Directives No July 08, 2020 7:33pm Insurance Providers Guarantor Adelita Johnson Address [address] [place] [id number] Contact Info. Home Phone: Payer Policy Id Subscriber's Name Subscriber Id Effectiv e Date Expiration Date [employer] [facility] PFFS [id number] Adelita Johnson [id number] [employer] [id number] Adelita Johnson [id number] Encounters Encounter Location(s) Arrival/Admit Date Discharge/Depart Date Provider(s) Departed Physician/Prov ider Office Visit -[facility] December 27, 2024 9:27am December 27, 2024 10:00am Farzana Aldana MD Non-patient / Non-visit -[facility] January 14, 2025 2:40pm Freedom Fields DO Non-patient / Non-visit -[facility] January 16, 2025 10:25am Cristela Turner CMA Departed Physician/Prov ider Office Visit -[facility] [place] January 23, 2025 8:27am January 23, 2025 9:09am Paula Irizarry APRN-LINOTYPE MACHINIST APPRENTICE-[place] Departed Physician/Prov ider Office Visit -[facility] [place] January 31, 2025 1:15pm January 31, 2025 2:26pm Dalila Apple DO Departed Physician/Prov ider Office Visit -[facility] February 02, 2025 2:48pm February 02, 2025 3:28pm Farzana Aldana MD Departed Physician/Prov ider Office Visit -[facility] February 20, 2025 2:17pm February 20, 2025 2:57pm Farzana Aldana MD Recent Diagnosis Onset Date Admit Date Disorder of right middle ear Unknown Dec 9:27am Excessive cerumen in left ear canal Unknown December 27, 2024 9:27am DDD (degenerative disc disease), lumbar Unknown January 23, 2025 8:27am Lumbosacral radiculopathy Unknown January 23, 2025 8:27am Lumbar radiculopathy Unknown January 1:15pm Diverticulitis large intesti ne w/o perforation or abscess w/o bleeding Unknown February 02, 2025 2:48pm Assessments Diagnosis Onset Date Resolution Status Admit Date Disorder of right middle ear acute December 27, 2024 9:27am Excessive cerumen in left ea r canal acute December 27, 2024 9:27am DDD (degenerative disc disea se), lumbar chronic January 23 8:27am Lumbosacral radiculopathy chronic January 23, 2025 8:27am Lumbar radiculopathy acute 2024 1:15pm Diverticulitis large intesti ne w/o perforation or abscess w/o bleeding acute February 02 2:48pm Plan of Treatment Author Paula Irizarry [facility] Authored January 23, 2025 9: 26am Ms. Johnson is a 69-year-o ld female who I believe has lumbosacral radiculopathy. This is likely secondary to disc bulges and degenerative changes in the lumbar spine which contribute to neural foraminal narrowing on MRI. The patient reports chronic low back pain which is non-radicular but also has intermittent tingling in the bilateral lower extremities (predominantly in the plantar aspect of the feet). She has no objective weakness on clinical exam. BLE [...] physical therapy for her symptoms with positive response previously. She underwent right L5 epidural injection on 10/11/2024. Epidural injection was well tolerated and effectively reduced her pain by greater than 50% with total effects lasting greater than 3 months. It improved her quality of life and ability to perform activities. She would like to proceed with further epidural injections for symptom management. PLAN: - Schedule for repeat L5 epidural injections on 01/31/2025. Will change to bilateral per patient request. Risks including but not limited to epidural hematoma, bleeding, contrast reaction, infection, cumulative steroid dose risk, allergic reaction, and weakness have been discussed with the patient. She verbalizes understanding and wishes to proceed - Could consider referral to pain management for consideration of radiofrequency ablation in the future pending clinical course - Could consider facet injections in the future if epidural injections do not remain meaningfully effective - Continue at home physical therapy exercises - Stop gabapentin (the patient is no longer taking this) See above. Diagnosis and treatment plan discussed. The patient verbalizes understanding and is agreeable to the plan. All questions answered. I advised the patient to follow up closely with her primary care provider for management of diverticulitis. Author Farzana [facility] Authored December 27, 2024 10:5 6am Recommend OTC Nasacort for R middle ear effusion. Cerumen removed from L canal as listed above. Adelita tolerated well. Author Farzana [facility] Authored February 14, 2025 12:50pm Symptoms have resolved. Gave info on healthy diet to follow. Consider GI or GS referral if symptoms continue/recur. Future Tests Future scheduled test information is unavailable Pending Tests Pending diagnostic test information is unavailable Future Visits Future appointment information is unavailable Referrals to Other Providers Referral information is unavailable Future Procedures Future procedure information is unavailable Future Medications Future medication information is unavailable Patient Instructions Instruction Admit Date Diverticulitis Diverticulitis - Discharge instructions February 02, 2025 2:48pm
--- OUTSIDE RECORDS SUMMARY | 2025-03-02 09:07 | XMS_ITS | Encounter Summary ---
Author Organization [facility] Address [address] [place] [address] Care Team Providers Care Guest Request Runner Name Role Phone Farzana Aldana MD Primary Care Provider [phone] Reason for Visit * Reason Comments Med Refill Encounter Details Date Type Department Care Team (Late st Contact Info) Description 04/15/2023 Refill [facility] [address] [place] [address] Angela Patel, CASH REGISTER REPAIRER [address] [place] [phone] Essential hypertension Social History Tobacco Use Types Packs/Day Years Used Date Smoking Tobacco: Never Smokeless Tobacco: Never Alcohol Use Standard Drinks/Week Comments Yes 0 (1 standard drink = 0.6 oz pur e alcohol) occasional Comments Unknown Sex and Gender Information Value Date Recorded Sex Assigned at Female 10/14/2024 10:15 AM EDT Legal Sex Female 11:15 PM EDT Gender Identity Female 10/14/2024 10:15 AM EDT Sexual Orientation Heterosexual or Straight 07/2024 10:15 AM EDT documented as of this encounter Plan of Treatment Not on file documented as of this encounter Visit Diagnoses Diagnosis Essential hypertension Unspecified essential hypertension documented in this encounter Care Teams Guest Request Runner Relationship Specialty Start Date End Date Farzana Aldana MD [address] [facility] [address] PCP - General 06/26/22 documented as of this encounter
--- OUTSIDE RECORDS SUMMARY | 2025-03-02 09:07 | XMS_ITS | Encounter Summary ---
Author Organization [facility] Address [address] [place] [address] Care Team Providers Care Human Resources Benefits Coordinator Name Role Phone Farzana Aldana MD Primary Care Provider [phone] Ramez Mccauley DO Unavailable Mer Rodriguez PHILANTHROPY OFFICER Unavailable [phone] Paula Irizarry PHILANTHROPY OFFICER Unavailable Unavailable Encounter Details Date Type Department Care Team (Late st Contact Info) Description 09/12/2024 Orders Only RHYS DANNA [address] [facility] [address] [place] [address] Ramez Mccauley DO [address] [place] [address] Social History Tobacco Use Types Packs/Day [...] on file documented as of this encounter Procedures Procedure Name Priority Date/Time Associated Diagnosis Comments MRI LUMBAR SPINE WO CONTRAST Routine 09/12/2024 8:01 AM EDT documented in this encounter Results * MRI LUMBAR SPINE WO CONTRAST (09/12/2024 8:01 AM EDT) Anatomical Region Laterality Modality Radiographic Meagan ging us Ramez Mccauley DO IMG XR PROCEDURES Final R esult documented in this encounter Visit Diagnoses Not on filedocumented in this encounter Care Teams Human Resources Benefits Coordinator Relationship Specialty Start Date End Date Farzana Aldana MD PCP - General Family Medicine 02/25/24 Ramez Mccauley DO [address] [place] [address] Referring Physician Neurology 05/17/24 Mer Rodriguez NP [address] [place] [address] Nurse Practitioner Neurology 05/17/24 Paula Irizarry NP [address] [place] [address] Nurse Practitioner Neurology 05/17/24 documented as of this encounter
--- OUTSIDE RECORDS SUMMARY | 2025-03-02 09:07 | XMS_ITS | Clinical Summary ---
Author Organization [employer] tem Address [id number] [address] [place] [address] Care Team Providers Care Salesperson Parts Name Role Phone Unavailable Primary Care Provider [...] 01/28/1975 Fall Risk Screening 01/28/2021 COVID-19 Vaccine (2024-2 6 season) 2025 05/23/2021, 09/18/2020, 08/28/2020 Influenza Vaccine 02/13/2025 04/01/2021, , 03/25/2019, Additional history exists Zoster (Shingles) Vaccine Completed 06/28/2018, Medical Devices Not on file Insurance [employer] ADVANT[employer] MEDICARE
--- OUTSIDE RECORDS SUMMARY | 2025-03-02 09:07 | XMS_ITS | Clinical Summary ---
Author Organization [facility] Address [address] [place] [address] Care Team Providers Care Media Director Name Role Phone Farzana Aldana MD Primary Care Provider [phone] Allergies Active Allergy Reactions Criticality Noted Date Comments Rosuvastatin Other 02/16/2024 myalgias Sulfa (Sulfonamide Antibiotics) Other 05/15 Sulfur Other 06/02/2014 Medications rosuvastatin (Crestor) 40 mg tabletIndications: Mixed hyperlipidemia Take 1 tablet by mouth daily in the evening 30 tablet 11 02/26/20 22 Active aspirin 81 mg EC tablet in the morning. Acti ve meloxicam (Mobic) 15 mg tablet Take 15 mg by mouth in the morning. Active chlorthalidone (Hygroton) 25 mg tabletIndications: Benign hypertensive heart disease without congestive heart failure Take 1 tablet (25 mg) by mouth once daily as directed. 90 tablet 3 10/25/19 23 Active Additional Information Patient not taking.Reported on 12/15/2024 nitroglycerin (Nitrostat) 0.4 mg SL tabletIndications: Chest pain, unspecified type Place 1 tablet (0.4 mg) under the tongue every 5 (five) minutes if needed for chest pain. 25 tablet 3 10/19/19 24 Active hydroCHLOROthiazid e (HYDRODiuril) 25 mg tabletIndications: Benign hypertensive heart disease without congestive heart failure Take 1 tablet (25 mg) by mouth in the morning. 90 tablet 3 10/20/19 24 Active furosemide (Lasix) 20 mg tabletIndications: Edema, unspecified type TAKE 1/2 TABLET DAILY 45 tablet 3 10/26/19 24 Active Additional Information Patient not taking.Reported on 12/15/2024 furosemide (Lasix) 20 mg tabletIndications: Edema, unspecified type TAKE 1/2 TABLET DAILY 45 tablet 3 10/26/19 24 Active Additional Information Patient not taking.Reported on 12/15/2024 carvedilol (Coreg) 25 mg tabletIndications: Essential hypertension Take 1 tablet (25 mg) by mouth with breakfast and with evening meal. 180 tablet 3 04/28/20 24 025 Active lisinopril 40 mg tabletIndications: Benign hypertensive heart disease without congestive heart failure TAKE 1 TABLET BY MOUTH IN THE MORNING 90 tablet 3 10/06/19 25 Active pantoprazole (ProtoNix) 40 mg EC tabletIndications: Chest pain, unspecified type TAKE 1 TABLET BY MOUTH DAILY 90 tablet 3 10/06/19 25 Active gabapentin (Neurontin) 300 mg capsule Take 300 mg by mouth 3 times a day. 04/26/20 24 025 Active carvedilol (Coreg) 12.5 mg tabletIndications: Benign hypertensive heart disease with heart failure (CMS/HCC) Take 1 tablet (12.5 mg) by mouth with breakfast and with evening meal. 180 tablet 3 11/11/19 25 026 Active magnesium, amino acid chelate, 133 mg tablet Take 1 tablet by mouth in the morning. Active ascorbic acid (Vitamin C) 1,000 mg tablet Take 1,000 mg by mouth in the morning. Active hydroCHLOROthiazid e (HYDRODiuril) 25 mg tabletIndications: Essential hypertension TAKE 1 TABLET BY MOUTH IN THE MORNING 90 tablet 3 01/03/20 25 Active ezetimibe (Zetia) 10 mg tabletIndications: Hyperlipidemia, unspecified hyperlipidemia type Take 1 tablet (10 mg) by mouth once daily as directed. 90 tablet 3 01/07/20 25 026 Active Active Problems Problem Noted Date Diagnosed [...] female 4 10/19/2023 Incontinence without sensory awareness 10/19/2023 History of UTI 10/19/2023 10/19/2023 Asymptomatic [...] Encounters Date Type Department Care Team Description 01/06/[address] [address] Paula Edmonds MA Hyperlipidemia, unspecified hyperlipidemia type 12/31/2024 [address] [place] [address] Cynthia Barry MD Essential hypertension (Primary Dx) 12/15/2024 11:45 AM EDT Office Visit [address] [address] Cynthia Barry MD Mixed hyperlipidemia (Primary Dx) from Last 3 Months Family History Medical History Relation Name Comments Emphysema Father Cancer Other Coronary artery disease Other Depression Other Relation Name Status Comments Father Mother Other Social History Tobacco Use Types Packs/Day [...] Physically or Sexually Abused Not on file Comments Unknown Sex and Gender Information Value Date Recorded Sex Assigned at Female 10/14/2024 10:15 AM EDT Legal Sex Female 11:15 PM EDT Gender Identity Female 10/14/2024 10:15 AM EDT Sexual Orientation Heterosexual or Straight 07/2024 10:15 AM EDT Last Filed Vital Signs Vital Sign Reading Time Taken Comments Blood Pressure 143/78 12/15/2024 11:51 AM EDT Pulse 78 12/15/2024 11:51 AM EDT Temperature - - Respiratory Rate - - Oxygen Saturation 96% 12/15/2024 11:51 AM EDT Inhaled Oxygen Concentration - - Weight 78.9 kg (174 lb) 12/15/2024 11:51 AM EDT Height 149.9 cm (4' 11 ) 12/15/2024 11:51 AM EDT Body Mass Index 35.14 12/15/2024 11:51 AM EDT Plan of Treatment Health Maintenance Due Date Last Done Comments CT Colonography 1956 Colonoscopy 1956 Colorectal Cancer Screening 1956 FIT-DNA 1955 FIT 1956 FOBT 1955 Medicare Annual Wellness (AWV) 1955 Sigmoidoscopy 1956 Depression Screening 1968 Pneumococcal Vaccine: 50+ Years (1 of 2 - PCV) 01/28/1975 Adult Tetanus 01/28/1978 Mammogram 1996 Fall Risk Screening 01/28/2021 COVID-19 Vaccine ( season) 2025 05/11/2023, 03/22/2022, 05/23/2021, Additional history exists Influenza Vaccine (#1) 2025 , 04/08/2023, 03/22/2022, Additional history exists Zoster Vaccines Completed 06/28/2018, 03/30/2018 HIB Vaccines Aged Out No longer eligi [...] on patient's age to complete this topic Insurance [facility] Care Teams Media Director Relationship Specialty Start Date End Date Farzana Aldana MD [address] [facility] [address] PCP - General 06/26/22
--- OUTSIDE RECORDS SUMMARY | 2025-03-02 09:07 | XMS_ITS | Clinical Summary ---
Author Organization [facility] Address [address] [place] [address] Care Team Providers Care Wholesale Parts Salesperson Name Role Phone Farzana Aldana MD Primary Care Provider [phone] Ramez Mccauley DO Unavailable [phone] Mer Rodriguez TARIFF EXPERT Unavailable [phone] Paula Irizarry NP Unavailable Unavailable Allergies Active Allergy Reactions Criticality Noted Date Comments Sulfa Antibiotics Rash Low 04/19/2024 Medications pantoprazole (ProtoNix) 20 MG EC tablet Take 20 mg by mouth in the morning. Take before meals. Do not crush, chew, or split.. Active aspirin 81 MG EC tablet Take 81 mg by mouth Daily Active lisinopril 2.5 MG tablet Take 40 mg by mouth Daily Active nitroglycerin (Nitrostat) 0.[address] 0.3 mg under the tongue every 5 (five) minutes if needed for chest pain Active hydroCHLOROthia zide (HYDRODiuril) 25 MG tablet Take 25 mg by mouth Daily Active carvedilol (Coreg) 25 MG tablet Take 25 mg by mouth in the morning and 25 mg in the evening. Take with meals. Active rosuvastatin (Crestor) 40 MG tablet Take 40 mg by mouth Daily Active ezetimibe (Zetia) 10 MG tablet Take 10 mg by mouth Daily Active gabapentin (Neurontin) 300 MG capsuleIndicati ons:Paresthesia Take 1 capsule (300 mg) by mouth in the morning and 1 capsule (300 mg) in the evening and 1 capsule (300 mg) before bedtime. 90 capsule 2 04/26/2024 Active Active Problems No known active problems Social History Tobacco Use Types Packs/Day Years Used Date Smoking Tobacco: Never Assessed Comments Unknown Sex and Gender Information Value Date Recorded Sex Assigned at Female 03/23/2024 3:55 PM EDT Legal Sex Female 7:09 PM EDT Gender Identity Female 03/23/2024 3:55 PM EDT Sexual Orientation Not on file Last Filed Vital Signs Vital Sign Reading Time Taken Comments Blood Pressure 136/79 10/11/2024 11:51 AM EDT Pulse 75 10/11/2024 11:51 AM EDT Temperature - - Respiratory Rate - - Oxygen Saturation 97% 05/24/2024 4:04 PM EST Inhaled Oxygen Concentration - - Weight 78.9 kg (174 lb) 09/13/2024 2:13 PM EDT Height 149.9 cm (4' 11 ) 09/13/2024 2:13 PM EDT Body Mass Index 35.14 09/13/2024 2:13 PM EDT Plan of Treatment Health Maintenance Due Date Last Done Comments CT Colonography 1956 Colonoscopy 1956 Colorectal Cancer Screening 1956 FIT-DNA 1956 FIT 1956 FOBT 1956 Sigmoidoscopy 1956 Mammogram 1996 Pneumococcal Vaccine: 65+ Ye ars (1 of 1 - PCV) 01/28/2006 Influenza Vaccine (#1) 2025 , 04/08/2023, 03/22/2022, Additional history exists Insurance [employer] Care Teams Wholesale Parts Salesperson Relationship Specialty Start Date End Date Farzana Aldana MD PCP - General Family Medicine 02/25/24 Ramez Mccauley DO [address] [place] [address] Referring Physician Neurology 05/17/24 Mer Rodriguez NP [address] [place] [address] Nurse Practitioner Neurology 05/17/24 Paula Irizarry NP [address] [place] [address] Nurse Practitioner Neurology 05/17/24
--- OUTSIDE RECORDS SUMMARY | 2025-03-02 09:10 | XMS_ITS | CCD ---
Author Organization [facility]ini[facility] Care Team Providers Care Office Support Name Role Phone Alex Horton Unavailable Jeffy [...] JEFFY Smith Consulting Unavailable RAMOS, DR JEFFY Simth Primary Care Unavailable TUNG, DR JANN Burton [...] Care Provider UnavailDO Alex Key Attending Provider [phone] Gucci Meyers Unavailable Marine Watson Unavailable NON STAFF Primary Care Provider UnavailMD Gucci Christine Attending Provider JEFFY RAMOS Primary Care Physician [phone] Lissa Prather Unavailable Jeffy Ramos MD Primary Care Provider URBAN, Jean Paul R Attending Unavailable URBAN, Jean Paul R Attending Unavailable URBAN, Jean Paul R Referring Unavailable URBAN, Jean Paul R Admitting Unavailable URBAN, Jean Paul R Attending Unavailable URBAN, Jean Paul R Referring Unavailable SARANYA WAYNE Attending Unavailable Garrick DO Christopher Unavailable Michael RURAL SOCIOLOGIST, Mer Unavailable Juan C RURAL SOCIOLOGIST, Paula Unavailable Jeffy Ramos MD Primary Care Provider Mustapha Mccauley DO Attending Provider Jeffy Ramos Primary Care Unavailable Mustapha Mccauley Attending Unavailab le Mustapha Mccauley Admitting Unavailab Jeffy Marcelino MD Primary Care Provider Michael RURAL SOCIOLOGIST, Mer Unavailable PAULA BENSON Attending Unavailable GARRICK, [...] Attending Provider Christian Pillai DO Attending Provider [phone] Cristela Turner CMA Attending Provider Unavaila madina Benson METAL WEIGHER-FREEZER UNLOADER-CPaula Attending Provider Mustapha Mccauley DO Attending Provider Jeffy Ramos MD Primary Care Provider Allergies Allergy Classification Reported Allergen(s) Allergy Type Date of Onset Reaction(s) Facility (17 sources) Sulf-10 Drug allergy Unknown [facility] Other (5 sources) Sulfonamides (Antibiotic); Translations: [Sulfa (Sulfonamide Antibiotics)] Allergy to substance 06-02-20 14 Rash [facility] (3 sources) steriod Propensity to adverse reactions 10-17-19 22 Redness of Skin [facility] (1 source) Sulfonamides (Antibiotic) Drug allergy (disorder) 01-10-20 13 [facility] (7 sources) HMG-CoA reductase inhibitor Drug allergy 08-27-19 14 Unknown [facility] Other (12 sources) Penicillin Drug Allergy 07-11-19 17 Unknown [facility] Other (3 sources) Allergies Reconciled Propensity to adverse reactions 04-30-20 21 Unknown [facility] Other (20 sources) Substance with sulfonamide structure and antibacterial mechanism of action (substance) Drug allergy 10-19-[address] [facility] (3 sources) patient allergy list reviewed by nurse or physicia Propensity to adverse reactions 11-11-19 19 Comment:Done [facility] Other (7 sources) Statins Depletion *DIETARY PRODUCTS/DIETARY MANAGE Propensity to adverse reactions Unknown [facility] Other (5 sources) Sulfamethoxazole; Translations: [sulfamethoxazole ] Drug Allergy .... [facility] (1 source) rosuvastatin; Translations: [ROSUVASTATIN] Drug Allergy 02-16-20 24 [facility] Repository (1 source) Sulfur; Translations: [SULFUR] Drug Allergy 06-02-20 14 [facility] Repository Medications Current Medications Medication Drug [...] therapy Start: 10-16-2021 take 1 tablet by [facility] twice daily Carvedilol 25 mg tablet Active 25 MG PO Twice daily October 16, 2021 12:00am Complies with drug therapy estradiol 0.1 mg/ml vaginal cream (2 sources) Estrogen Start: 10-16-2023 estradiol 0.1 mg/g Vag Crm 1 gm, Vaginal, As Directed, 42.5 gm, Refill(s) 4, Apply with plunger 2x per week. Also pply around outer urethra with finger., [facility], 149, cm, 10/16/23 10:35:00 EDT, Height/Length [...] 2023 1:00am January 05, 2024 10:00am nystatin [id number] unt/ml topical cream (20 sources) Polyene Antifungal [...] Not-TakingundefinedPRN; Refills: 0; Provider: Richard Smith Nystatin [id number] UNIT/GM 1 application Externally Twice a day for 10 days Not-Taking/PRN Nystatin 208130 UNIT/GM 1 application Externally Twice a day [...] procedure, # 2 tab(s), Refills(s) 0, Pharmacy: [facility], 150, cm, 06/29/23 11:34:00 EST, Height/Length [...] as needed for 7 days VANESSA # [id number] Mar, Not-Taking triamcinolone acetonide 40 mg/ml injectable [...] Onset: 08-25-2016 Episodic Other aftercare (1 source) alf (current) use of aspirin; Translations: [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 CURRENT USE OF ASPIRIN] Onset: 05-07-2022 Episodic Other aftercare (1 source) 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 (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) drug therapy; Translations: [OTH 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 CURRENT DRUG THERAPY] Onset: 05-07-2022 Episodic Other [...] Basophils (Bld) [#/Vol] 0.0 10 3/uL 0.0-0.1 [facility] Basophils/100 WBC Auto (Bld) Ordered By: Lisha So on 01-14-2025 Basophils/100 WBC (Bld) 0.4 % 0.2-2.0 [facility] Eosinophils/100 WBC Auto (Bl d)Ordered By: Lisha So on 01-14-2025 Eosinophils/100 WBC (Bld) 2.3 % 0.9-7.0 [facility] Erythrocyte distribution wid th Auto (RBC) [Ratio]Ordered By: Lisha So on 01-14-2025 Erythrocyte distribution width (RBC) [Ratio] 13.6 % 11.0-15.0 [facility] Estimated glomerular filtrat ion rate (GFR) non- AmericanOrdered By: Lisha So on 01-14-2025 GFR/1.73 sq M.predicted among non-blacks MDRD (S/P/Bld) [Vol rate/Area] mL/min/{1.73_m2} >=60 mL/min/1.73 m 2 [facility] Globulin Calc (S) [Mass/Vol] Ordered By: Lisha So on 01-14-2025 Globulin (S) [Mass/Vol] 3.9 g/dL [facility] Hematocrit Auto (Bld) [Volum e fraction]Ordered By: Lisha So on 01-14-2025 Hematocrit (Bld) [Volume fraction] 35.7 % Low 36.0-48.0 [facility] Hemoglobin [Mass/volume] in BloodOrdered By: Lisha So on 01-14-2025 Hemoglobin (Bld) [Mass/Vol] 12.2 g/dL 12.0-16.0 [facility] Laboratory - Chemistry and C hemistry - challengeOrdered By: Lisha So on 01-14-2025 Albumin [Mass/Vol] 3.6 g/dL 3.4-5.0 [facility] ALP [Catalytic activity/Vol] 101 U/L 46-116 [facility] ALT [Catalytic activity/Vol] 26 U/L 14-59 [facility] AST [Catalytic activity/Vol] 18 U/L 15-37 [facility] Bilirubin [Mass/Vol] 0.7 mg/dL 0.2-1.0 [facility] Calcium [Mass/Vol] 9.8 mg/dL 8.5-10.1 [facility] Chloride [Moles/Vol] 100 mmol/L 98-107 [facility] CO2 [Moles/Vol] 33.4 mmol/L High 21.0-32.0 [facility] Creatinine [Mass/Vol] 0.87 mg/dL 0.55-1.02 [facility] GFR/1.73 sq M.predicted MDRD (S/P/Bld) [Vol rate/Area] mL/min/{1.73_m2} >=60 mL/min/1.73 m 2 [facility] Glucose [Mass/Vol] 93 mg/dL 74-106 [facility] Lactate [Moles/Vol] 0.9 mmol/L 0.4-2.0 [facility] Lipase [Catalytic activity/Vol] 26.0 U/L 16.0-77.0 [facility] Potassium [Moles/Vol] 3.5 mmol/L 3.5-5.1 [facility] Protein [Mass/Vol] 7.5 g/dL 6.4-8.2 [facility] Sodium [Moles/Vol] 139 mmol/L 136-145 [facility] Urea nitrogen [Mass/Vol] 22.0 mg/dL High 7.0-18.0 [facility] Urea nitrogen/Creatinine [Mass ratio] 25.3 mg/mg [facility] - Chemistry and C hemistry - challengeOrdered By: Christian Pillai on 01-14-2025 Bilirubin Ql (U) Negative NEGATIVE [facility] Glucose (U) [Mass/Vol] Negative NEGATIVE [facility] Ketones Ql (U) Negative NEGATIVE [facility] pH (U) 6.0 [pH] 5.0-9.0 [facility] Specific gravity (U) [Rel density] 1.025 1.005-1.025 [facility] Urobilinogen Qn (U) 0.2 {Michael'U}/dL 0.2-1.0 [facility] - Hematology and Cell countsOrdered By: Lisha So on 01-14-2025 Immature granulocytes/100 WBC (Bld) 0.4 % 0.0-0.5 [facility] - Specimen inform ationOrdered By: Christian Pillai on 01-14-2025 Appearance (U) CLEAR CLEAR [facility] Color (U) LT. YELLOW YELLOW [facility] - UrinalysisOrder ed By: Christian Pillai on 01-14-2025 Leukocyte esterase Test strip Ql (U) Negative NEGATIVE [facility] Nitrite Ql (U) Negative NEGATIVE [facility] Protein Ql (U) Negative NEG/TRACE [facility] Leukocytes [#/volume] correc garcía for nucleated erythrocytes in Blood by Automated counOrdered By: Lisha So on 01-14-2025 WBC corrected for nucl RBC Auto (Bld) [#/Vol] 8.4 10 3/uL 4.0-11.0 [facility] Lymphocytes Auto (Bld) [#/Vo l]Ordered By: Lisha So on 01-14-2025 Lymphocytes (Bld) [#/Vol] 1.3 10 3/uL 1.2-3.8 [facility] Lymphocytes/100 WBC Auto (Bl d)Ordered By: Lisha So on 01-14-2025 Lymphocytes/100 WBC (Bld) 15.3 % Low 20.5-60.0 [facility] MCH Auto (RBC) [Entitic mass ]Ordered By: Lisha So on 01-14-2025 MCH (RBC) [Entitic mass] 28.8 pg 26.7-34.0 [facility] MCHC Auto (RBC) [Mass/Vol]Or dered By: Lisha So on 01-14-2025 MCHC (RBC) [Mass/Vol] 34.2 g/dL 29.9-35.2 [facility] MCV Auto (RBC) [Entitic vol] Ordered By: Lisha So on 01-14-2025 MCV (RBC) [Entitic vol] 84.4 fL 81.0-99.0 [facility] Monocytes Auto (Bld) [#/Vol] Ordered By: Lisha So on 01-14-2025 Monocytes (Bld) [#/Vol] 0.9 10 3/uL High 0.3-0.8 [facility] Monocytes/100 WBC Auto (Bld) Ordered By: Lisha So on 01-14-2025 Monocytes/100 WBC (Bld) 10.8 % 1.7-12.0 [facility] Neutrophils Auto (Bld) [#/Vo l]Ordered By: Lisha So on 01-14-2025 Neutrophils (Bld) [#/Vol] 6.0 10 3/uL 1.4-6.5 [facility] Neutrophils/100 WBC Auto (Bl d)Ordered By: Lisha So on 01-14-2025 Neutrophils/100 WBC (Bld) 70.8 % 43.0-75.0 [facility] No Panel InformationOrdered By: Lisha So on 01-14-2025 Eosinophils # (Auto) 0.2 10 3/uL 0.0-0.7 [facility] Immature Granulocyte # (Auto) 0.03 10 3/uL 0.00-0.03 [facility] No Panel InformationOrdered By: Christian Pillai on 01-14-2025 Urine Microscopic Review NO [facility] Urine Occult Blood Negative NEGATIVE [facility] Platelet mean volume Auto (B ld) [Entitic vol]Ordered By: Lisha So on 01-14-2025 Platelet mean volume (Bld) [Entitic vol] 9.2 fL Low 9.5-13.5 [facility] Platelets Auto (Bld) [#/Vol] Ordered By: Lisha So on 01-14-2025 Platelets (Bld) [#/Vol] 204 10 3/uL 150-450 [facility] RBC Auto (Bld) [#/Vol]Ordere d By: Lisha So on 01-14-2025 RBC (Bld) [#/Vol] 4.23 10 6/uL 4.20-5.40 [facility] Serum or plasma albumin/glob ulin mass ratioOrdered By: Lisha So on 01-14-2025 Albumin/Globulin [Mass ratio] 0.9 {ratio} [facility] Serum or plasma anion gap de terminationOrdered By: Lisha So on 01-14-2025 Anion gap [Moles/Vol] 9.1 mmol/L [facility] Office Visiton 12-15-2024 Follow-up visit [id number] Pebbles Johnson 1955 F Date Provider Department Center 12/15/2024 Lesley-CYNTHIA BARRY [facility] Family History Problem Relation Age of Onset Emphysema Father Cancer Other Coronary artery disease Other Depression Other Family Status - Relation Status Age at Mother Father Other Level of Service:61715 CT OFFICE/OUTPATIENT ESTABLISHED LOW MDM 20 MIN Normal [facility] Basophils Auto (Bld) [#/Vol] on 11-10-2024 Basophils (Bld) [#/Vol] 0.0 10 3/uL 0.0-0.1 [facility] Basophils/100 WBC Auto (Bld) on 11-10-2024 Basophils/100 WBC (Bld) 0.3 % 0.2-2.0 [facility] Eosinophils/100 WBC Auto (Bl d)on 11-10-2024 Eosinophils/100 WBC (Bld) 5.2 % 0.9-7.0 [facility] Erythrocyte distribution wid th Auto (RBC) [Ratio]on 11-10-2024 Erythrocyte distribution width (RBC) [Ratio] 14.0 % 11.0-15.0 [facility] Estimated glomerular filtrat ion rate (GFR) non- Americanon 11-10-2024 GFR/1.73 sq M.predicted among non-blacks MDRD (S/P/Bld) [Vol rate/Area] mL/min/{1.73_m2} >=60 mL/min/1.73 m 2 [facility] Globulin Calc (S) [Mass/Vol] on 11-10-2024 Globulin (S) [Mass/Vol] 3.5 g/dL [facility] Hematocrit Auto (Bld) [Volum e fraction]on 11-10-2024 Hematocrit (Bld) [Volume fraction] 38.2 % 36.0-48.0 [facility] Hemoglobin [Mass/volume] in Bloodon 11-10-2024 Hemoglobin (Bld) [Mass/Vol] 12.6 g/dL 12.0-16.0 [facility] Laboratory - Chemistry and C hemistry - challengeon 11-10-2024 Albumin [Mass/Vol] 3.7 g/dL 3.4-5.0 [facility] ALP [Catalytic activity/Vol] 92 U/L 46-116 [facility] ALT [Catalytic activity/Vol] 36 U/L 14-59 [facility] AST [Catalytic activity/Vol] 28 U/L 15-37 [facility] Bilirubin [Mass/Vol] 0.4 mg/dL 0.2-1.0 [facility] Calcium [Mass/Vol] 9.7 mg/dL 8.5-10.1 [facility] Chloride [Moles/Vol] 104 mmol/L 98-107 [facility] CO2 [Moles/Vol] 32.9 mmol/L High 21.0-32.0 [facility] Creatinine [Mass/Vol] 0.80 mg/dL 0.55-1.02 [facility] GFR/1.73 sq M.predicted MDRD (S/P/Bld) [Vol rate/Area] mL/min/{1.73_m2} >=60 mL/min/1.73 m 2 [facility] Glucose [Mass/Vol] 96 mg/dL 74-106 [facility] Potassium [Moles/Vol] 4.0 mmol/L 3.5-5.1 [facility] Protein [Mass/Vol] 7.2 g/dL 6.4-8.2 [facility] Sodium [Moles/Vol] 143 mmol/L 136-145 [facility] Urea nitrogen [Mass/Vol] 21.0 mg/dL High 7.0-18.0 [facility] Urea nitrogen/Creatinine [Mass ratio] 26.3 mg/mg [facility] Laboratory - Hematology and Cell countson 11-10-2024 Immature granulocytes/100 WBC (Bld) 0.5 % 0.0-0.5 [facility] Leukocytes [#/volume] correc garcía for nucleated erythrocytes in Blood by Automated counon 11-10-2024 WBC corrected for nucl RBC Auto (Bld) [#/Vol] 6.2 10 3/uL 4.0-11.0 [facility] Lymphocytes Auto (Bld) [#/Vo l]on 11-10-2024 Lymphocytes (Bld) [#/Vol] 1.2 10 3/uL 1.2-3.8 [facility] Lymphocytes/100 WBC Auto (Bl d)on 11-10-2024 Lymphocytes/100 WBC (Bld) 19.2 % Low 20.5-60.0 [facility] MCH Auto (RBC) [Entitic mass ]on 11-10-2024 MCH (RBC) [Entitic mass] 28.3 pg 26.7-34.0 [facility] MCHC Auto (RBC) [Mass/Vol]on 11-10-2024 MCHC (RBC) [Mass/Vol] 33.0 g/dL 29.9-35.2 [facility] MCV Auto (RBC) [Entitic vol] on 11-10-2024 MCV (RBC) [Entitic vol] 85.8 fL 81.0-99.0 [facility] Monocytes Auto (Bld) [#/Vol] on 11-10-2024 Monocytes (Bld) [#/Vol] 0.7 10 3/uL 0.3-0.8 [facility] Monocytes/100 WBC Auto (Bld) on 11-10-2024 Monocytes/100 WBC (Bld) 11.9 % 1.7-12.0 [facility] Neutrophils Auto (Bld) [#/Vo l]on 11-10-2024 Neutrophils (Bld) [#/Vol] 3.9 10 3/uL 1.4-6.5 [facility] Neutrophils/100 WBC Auto (Bl d)on 11-10-2024 Neutrophils/100 WBC (Bld) 62.9 % 43.0-75.0 [facility] No Panel Informationon 11-10 Eosinophils # (Auto) 0.3 10 3/uL 0.0-0.7 [facility] Immature Granulocyte # (Auto) 0.03 10 3/uL 0.00-0.03 [facility] Office Visiton 11-10-2024 Follow-up visit [id number] Pebbles Johnson 1955 F Date Provider Department Center 11/10/2024 271-WINDY, CYNTHIA CARD [facility] Family History Problem Relation Age of Onset Cancer Other Coronary artery disease Other Depression Other Family Status - Relation Status Age at Other Level of Service:47067 CT OFFICE/OUTPATIENT ESTABLISHED MOD MDM 30 MIN Normal [facility] Platelet mean volume Auto (B ld) [Entitic vol]on 11-10-2024 Platelet mean volume (Bld) [Entitic vol] 9.3 fL Low 9.5-13.5 [facility] Platelets Auto (Bld) [#/Vol] on 11-10-2024 Platelets (Bld) [#/Vol] 244 10 3/uL 150-450 [facility] RBC Auto (Bld) [#/Vol]on 05- 29-2025 RBC (Bld) [#/Vol] 4.45 10 6/uL 4.20-5.40 [facility] Serum or plasma albumin/glob ulin mass ratioon 11-10-2024 Albumin/Globulin [Mass ratio] 1.1 {ratio} [facility] Serum or plasma anion gap de terminationon 11-10-2024 Anion gap [Moles/Vol] 10.1 mmol/L [facility] Office Visiton 10-18-2024 Follow-up visit [id number] Pebbles Johnson 1955 F Date Provider Department Center 10/18/2024 271-WINDY, CYNTHIA CARD [facility] Family History Problem Relation Age of Onset Cancer Other Coronary artery disease Other Depression Other Family Status - Relation Status Age at Other Level of Service:41633 CT OFFICE/OUTPATIENT ESTABLISHED LOW MDM 20 MIN Normal [facility] Magnetic resonance imaging r eportOrdered By: Karan Merrill on 09-06-2024 Study report [facility] [place] [address] MRI Report Signed Patient: Pebbles Johnson MR#: [id number] : 1955 Acct:[id number] Age/Sex: 69 / F ADM Date: 5 Loc: Room: Type: [facility] Attending Dr: Mustapha Mccauley DO Copies to: Mustapha Mccauley DO~ Ordering Provider: Mustapha Mccauley DO Date of Service: 09/06/24 MR/MR lumbar spine wo con: R29.898 ([id number]) XR/XR pre/post mri xray: R29.898 MRI lumbar spine without contrast/2 views of the lumbar spine INDICATION: Weakness of both lower extremities COMPARISON: None FINDINGS: X-rays of the lumbar spine: Mild dextrocurvature of the lumbar spine mild levocurvature of the lower thoracic spine. There is 5 mm anterolisthesis L4 on L5. 4 mm anterolisthesis L5 on S1. Moderate facet arthropathy L4-S1. Ehod-iz-npclvbmt facet arthropathy L3-4. Lumbar vertebral heights are [...] canal narrowing. L3-4: Broad-based disc bulge with qrbl-vq-lgyrytrz facet arthropathy. Sjlf-yo-rnibzpbj central canal stenosis. Mild/moderate right neural from narrowing. Moderate left neural foraminal narrowing. L4-5: Circumferential disc bulge with moderate to severe facet arthropathy. Slight uncovering the posterior disc. There is crowding of both subarticular zones, correlate with L5 radiculopathy. Mild central canal narrowing. Vhtf-qw-maqedwmj neural foraminal narrowing. L5-S1: Moderate severe right [...] Karan Merrill M.D.09/06/2024 5:09 PM Dictation Location: [place] [address] Transcribed By: [facility] 09/06/241708 Dictated By: Karan Merrill MD 09/06/241654 Signed By: 09/06/241708 [facility] Work Phone: XR pre/post mri xrayon 09-06 XR pre/post mri xray [facility] [place] [address] MRI Report Signed Patient: Pebbles Johnson MR#: [id number] : 1955 Acct:[id number] Age/Sex: 69 / F ADM Date: 09/06/24 Loc: MR Room: Type: [facility] Attending Dr: Mustapha Mccauley DO Copies to: Mustapha Mccauley DO Ordering Provider: Mustapha Mccauley DO Date of Service: 09/06/24 MR/MR lumbar spine wo con: R29.898 ([id number]) XR/XR pre/post mri xray: R29.898 MRI lumbar spine without contrast/2 views of the lumbar spine INDICATION: Weakness of both lower extremities COMPARISON: None FINDINGS: X-rays of the lumbar spine: Mild dextrocurvature of the lumbar spine mild levocurvature of the lower thoracic spine. There is 5 mm anterolisthesis L4 on L5. 4 mm anterolisthesis L5 on S1. Moderate facet arthropathy L4-S1. Jtwe-df-yozuoasa facet arthropathy L3-4. Lumbar vertebral heights are [...] canal narrowing. L3-4: Broad-based disc bulge with ahpg-vo-yypzfuzs facet arthropathy. Alyp-sp-mjhuxtbf central canal stenosis. Mild/moderate right neural from narrowing. Moderate left neural foraminal narrowing. L4-5: Circumferential disc bulge with moderate to severe facet arthropathy. Slight uncovering the posterior disc. There is crowding of both subarticular zones, correlate with L5 radiculopathy. Mild central canal narrowing. Xvms-lm-jjipodee neural foraminal narrowing. L5-S1: Moderate severe right [...] Karan Merrill M.D.09/06/2024 5:09 PM Dictation Location: [place] [address] Transcribed By: [facility] 09/06/241708 Dictated By: Karan Merrill MD 09/06/241654 Signed By: 09/06/241708 Normal [facility] EMG 2 Extremitieson 05-17-20 24 S1 radiculopathy, bilaterally, mild [facility] NVC 9-10 Nerveson 05-17-2024 S1 radiculopathy, bilaterally, mild [facility] Ambulatory Visit Summaryon 1 07-03-2023 Ambulatory Visit [...] of your condition (more content not included)... [facility] Reminderson 05-03-2024 Reminders Reminders From: [place] To: EU - Administrative; Sent: 05/03/2024 16:11:34 EST Show up: 10/13/2024 16:11:00 EDT Subject: 1 yr f/u Due Date/Time: 04/29/2025 16:11:00 EST Reminder/Recall Patient needs an appointment with ERNESTINE for a 1 yr F/U [facility] Urology Office/Clinic Noteon 05-03-2024 Urology Office/Clinic Note [...] E&M of Est. Patient Moderate 30-39 Min 51513 Influenza immunization status assessed 1030F Medication list [...] Urnls Dip Stick Auto w/o Microscopy POC 35339 2. Mixed incontinence (N39.46: Mixed incontinence) S/p [...] E&M of Est. Patient Moderate 30-39 Min 56446 Influenza immunization status assessed 1030F Medication list [...] Urnls Dip Stick Auto w/o Microscopy POC 35412 3. Vaginal atrophy (N95.2: Postmenopausal atrophic vaginitis) [...] E&M of Est. Patient Moderate 30-39 Min 52662 Influenza immunization status assessed 1030F Medication list [...] Urnls Dip Stick Auto w/o Microscopy POC 40309 4. Asymptomatic microscopic hematuria (R31.21: Asymptomatic microscopic [...] E&M of Est. Patient Moderate 30-39 Min 57019 Influenza immunization status assessed 1030F Medication list documented in medical record 1159F Most recent diastolic blood pressure <80 mm Hg 3078F Patient screen for fall risk: no falls in last year or 1 fall with no injury in last year 1101F Review of all meds by a prescribing practitione (more content not included)... Normal [facility] Comment on above: Result Comment: Elec tronically Signed By: SARANYA WAYNE PA-C\.br\Date and Time Signed: 05/03/24 15:02 EST Office Visiton 02-16-2024 Follow-up visit [id number] Pebbles Johnson 1955 F Date Provider Department Center 02/16/2024 Lesley-CYNTHIA BARRY CARD [facility] Family History Problem Relation Age of Onset Cancer Other Coronary artery disease Other Depression Other Family Status - Relation Status Age at Other Level of Service:49240 CT OFFICE/OUTPATIENT ESTABLISHED MOD MDM 30 MIN Normal [facility] Ambulatory Visit Summaryon 0 10-16-2023 Ambulatory [...] with MARYAM BEAVERS, OLEKSANDR Topete When: Where: [address] [place], [place] [id number]- Medications What How Much When Instructions New estradiol topical (estradiol 0.1 mg/ g Vag Crm) 1 Gram Vaginal As Directed Refills: 4 Apply with plunger 2x per week. Also pply around outer urethra with finger. Pickup at [facility] Unchanged aspirin (aspirin 81 mg oral [...] physician if questions or concerns Pharmacy Information [facility]: [address] [place], [place] [phone] Allergies sulfamethoxazole (....) Problems Ongoing - Any [...] to the vagina. General instructions ? Take rjox-vis-bthoylh and prescription medicines only as told by [...] a cot (more content not included)... Normal [facility] Urology Office/Clinic Noteon 10-16-2023 Urology Office/Clinic Note [...] Information MARYAM BEAVERS, Jean Paul Burton, URL [address] [place] [address]- Additional Instructions: 6 months Patient Education Vaginitis [...] virus vaccine, inactivated 03/22/2022 Recorded SARS-CoV-2 (COVID-19) [id number] 03/22/2022 Recorded SARS-CoV-2 (COVID-19) mRNA BNT-162b2 vax 05/23/2021 Recorded influenza virus vaccine, inactivated 04/01/2021 Recorded SARS-CoV-2 (COVID-19) mRNA (more content not included)... [facility] Comment on above: Result Comment: Elec tronically Signed By: Jean Paul URBAN MD\.br\Date and Time Signed: 10/16/23 11:13 EDT\.br\Electronically Co-Signed By: Katiuska Hobbs.br\Date and Time Co-Signed: 10/16/23 11:11 EDT Consent for Procedure/Surger yon 07-28-2023 Consent for Procedure/Surgery [id number]# 1.00TIFF [facility] Consent for Treatmenton 07-16 Consent for Treatment [id number]#1 .00TIFF [facility] IntraOperative Documentson 0 07-28-2023 IntraOperative Documents [id number]# 1.00TIFF [facility] IntraOperative Documents [id number]# 1.00TIFF [facility] [place] Intraoperative Recor don 07-28-2023 Main [place] Intraoperative Record IntraOp Document Type FTURO Summary Primary Physician: Jean Paul URBAN MD Finalized Date/Time: 07/28/23 11:03:27 Pt. Name: PEBBLES JOHNSON Dioni/Sex: 1955 Female Med Rec #: [id number] Physician: Jean Paul URBAN MD Financial #: [id number] Pt. Type: O Room/Bed: / Admit/Disch: 07/28/23 [...] Reina Hurtado Role Performed Surgeon - Primary Steam Fitter - Primary Scrub - Primary Time In [...] As Preop No HEMATURIA Postop Diagnosis urethral [id number] Outcomes Met? Yes Last Modified By: KAY [...] JOHNSON /Sex: 1955 Female Med Rec #: [id number] Physician: Jean Paul URBAN MD Financial #: [id number] Pt. Type: O Room/Bed: / Admit/Disch: 07/28/23 [...] Complaints of Pain: No Skin Integrity Intact, [place], Warm, & Dry Vitals - EU Blood [...] urine. The Urethra was dilated to: 30 [place] w/ sounds. Devices Implanted: None. Removal: Cystoscope is removed, The patient tolerated it well. Postoperative Information Discharge: Patient is discharged home with antibiotic coverage, Follow up arranged. [facility] Comment on above: Result Comment: Elec tronically Signed By: Jean Paul URBAN MD\.br\Date and Time Signed: 07/28/23 11:10 EST COVID + FLU Quick Testingon 07-18-2023 SARS-CoV-2 (COVID-19) RNA ALEXA+probe Ql (Unsp spec) Negative [facility] Other COVID + FLU Quick Testing Negative [facility] Other Formson 06-30-2023 Forms [id number]#1 .00TIFF [facility] Screenson 06-30-2023 Screens [id number] 1.00TIFF [facility] Ambulatory Visit Summaryon 0 06-29-2023 Ambulatory Visit Summary PEBBLES JOHNSON :1955 Visit Date:06/29/2023 Ambulatory Visit Instructions Your Diagnosis Mixed incontinence Incontinence without sensory awareness Asymptomatic microscopic hematuria History of UTI Tests Performed Urnls Dip Stick Auto w/o Microscopy POC 28979 Your Care Team Attending Physician - MARYAM [...] [facility] [address], [place] [phone] Medications What How Much When Instructions New ciprofloxacin (Cipro 500 mg Tab) 1 Tablets By Mouth Every day take one tab day before procedure and one tab after procedure Pickup at [facility] #[id number] Unchanged aspirin (aspirin 81 mg oral tablet) [...] physician if questions or concerns Pharmacy Information [facility] #[id number]: [address], [place] [id number] [phone] Test Results Urnls Dip Stick Auto w/o Microscopy POC 37779 (06/29/2023) Bilirubin Urine Dipstick - Negative Blood Urine Dipstick - 1+ Small Leukocytes Urine Dipstick - Negative Nitrite Urine Dipstick - Negative Protein Urine Dipstick - Trace Specific [place] Urine Dipstick - >=1.030 Urine Appearance Urine [...] including vitamins, herbs, eye drops, creams, and mlut-urw-vqwzedt medicines. ? Whether you are or may [...] be (more content not included)... Normal [facility] Urology Office/Clinic Noteon 06-29-2023 Urology Office/Clinic [...] [facility] [address] , [place] [phone] Additional Instructions: sched cysto/urodynamics Patient Education Urodynamic [...] : DR JEFFY RAMOS M.D. Admission #: [id number] Family : Order #: [id number] CLICK HERE TO VIEW EXAM RADIOLOGY REPORT [...] kidney cancer at age 31. LOCATION: [facility] BREAST COMPOSITION: Heterogeneously dense,which may obscure small [...] M.D. on 09/24/2022 at 13:25 Normal [facility] Urinalysis - DIPSTICKon 09-13 Appearance (U) clear [facility] Other Bilirubin Ql (U) small [facility] Other Color (U) yellow [facility] Other Glucose Ql (U) Negative [facility] Other Hemoglobin Ql (U) Negative [employer] Other Ketones Ql (U) off chart [facility] Other Leukocyte esterase Test strip Ql (U) Negative [facility] Other Nitrite Ql (U) Negative [facility] Other pH (U) 5.0 [pH] [facility] Other Protein Ql (U) Negative [facility] Other Specific gravity (U) [Rel density] 1.010 [facility] Other Urobilinogen (U) [Mass/Vol] 0.2 mg/dL [facility] Other Urinalysis - DIPSTICK Nor [employer] Other LIPID PROFILEon 07-05-2022 CHOL-HDL RATIO NORM SEE BELOW Normal [facility] Comment on above: Result Comment: 3.3 - 4.4 LOW RISK 4.4 - 7.1 AVERAGE RISK 7.1 - 11.0 MODERATE RISK >11.0 HIGH RISK Performed By: #### L IPID #### [facility] [address] [address] [address] Carlos Barlow Cholesterol [Mass/Vol] 181 mg/dL Normal <=200 Th [facility] Comment on above: Performed By: #### L IPID #### [facility] [address] [address] [address] Carlos Barlow Cholesterol in HDL [Mass/Vol] 63 mg/dL Critically high 40-60 [facility] Comment on above: Performed By: #### L IPID #### [facility] [address] [address] [address] Carlos Barlow Cholesterol in LDL [Mass/Vol] 88.0 mg/dL Normal [facility] Comment on above: Performed By: #### L IPID #### [facility] [address] [address] [address] Carlos Barlow Cholesterol.total/Sharita sterol in HDL [Mass ratio] 2.9 {ratio} Normal [facility] Comment on above: Performed By: #### L IPID #### [facility] [address] [address] [address] Carlos Barlow HDL NORMAL > or = 60 mg/dl - LO W CARDIOVASCULAR RISK <40 mg/dl - HIGH CARDIOVASCULAR RISK Normal [facility] Comment on above: Performed By: #### L IPID #### [facility] [address] [address] [address] Carlos Barlow LDL CALC NORMAL SEE BELOW Normal [facility] Comment on above: Result Comment: <100 mg/dl OPTIMAL 100 - 129 mg/dl NEAR OR ABOVE OPTIMAL 130 - 159 mg/dl BORDERLINE HIGH 160 - 189 mg/dl HIGH >190 mg/dl VERY HIGH Performed By: #### L IPID #### [facility] [address] [address] [address] Carlos Barlow Triglyceride [Mass/Vol] 150 mg/dL Normal <=150 T he [facility] Comment on above: Performed By: #### L IPID #### [facility] [address] [address] [address] Carlos Barlow VLDL CALC 30.0 mg/dL Normal [facility] Comment on above: Performed By: #### L IPID #### [facility] [address] [place], [place] [address] Dr. Carlos Barlow XR CHEST 1 Von [...] by: RO BONILLA Date: 2022-05-05 06:41 Normal [facility] XR NECK SOFT TISSUEon 2021 XR NECK [...] by: RO BONILLA Date: 2022-05-05 06:42 Normal [facility] XR LSPINE MIN 4 VIEWSon 03-15 XR [...] by: KIRK CESAR Date: 2022-04-01 06:49 Normal [facility] LIPID PROFILEon 03-10-2022 CHOL-HDL RATIO NORM SEE BELOW Normal [facility] Comment on above: Result Comment: 3.3 - 4.4 LOW RISK 4.4 - 7.1 AVERAGE RISK 7.1 - 11.0 MODERATE RISK >11.0 HIGH RISK Performed By: #### B MP, LIPID, LIVER #### [facility] [address] [address] [address] Carlos Barlow Cholesterol [Mass/Vol] 186 mg/dL Normal <=200 Th [facility] Comment on above: Performed By: #### B MP, LIPID, LIVER #### [facility] [address] [address] [address] Carlos Barlow Cholesterol in HDL [Mass/Vol] 61 mg/dL Critically high 40-60 [facility] Comment on above: Performed By: #### B MP, LIPID, LIVER #### [facility] [address] [address] [address] Carlos Barlow Cholesterol in LDL [Mass/Vol] 90.4 mg/dL Normal [facility] Comment on above: Performed By: #### B MP, LIPID, LIVER #### [facility] [address] [address] [address] Carlos Barlow Cholesterol.total/Sharita sterol in HDL [Mass ratio] 3.0 {ratio} Normal [facility] Comment on above: Performed By: #### B MP, LIPID, LIVER #### [facility] [address] [address] [address] Carlos Barlow HDL NORMAL > or = 60 mg/dl - LO W CARDIOVASCULAR RISK <40 mg/dl - HIGH CARDIOVASCULAR RISK Normal [facility] Comment on above: Performed By: #### B MP, LIPID, LIVER #### [facility] [address] [address] [address] Carlos Barlow LDL CALC NORMAL SEE BELOW Normal [facility] Comment on above: Result Comment: <100 mg/dl OPTIMAL 100 - 129 mg/dl NEAR OR ABOVE OPTIMAL 130 - 159 mg/dl BORDERLINE HIGH 160 - 189 mg/dl HIGH >190 mg/dl VERY HIGH Performed By: #### B MP, LIPID, LIVER #### [facility] [address] [address] [address] Carlos Barlow Triglyceride [Mass/Vol] 173 mg/dL Critically high <=150 [facility] Comment on above: Performed By: #### B MP, LIPID, LIVER #### [facility] [address] [address] [address] Carlos Barlow VLDL CALC 34.6 mg/dL Normal [facility] Comment on above: Performed By: #### B MP, LIPID, LIVER #### [facility] [address] [place] [address] Dr. Carlos Barlow LIVER PROFILEon 03-10-2022 Albumin [Mass/Vol] 3.6 g/dL Normal 3.4-5.0 [facility] Comment on above: Performed By: #### B MP, LIPID, LIVER #### [facility] [address] [place] [address] Dr. Carlos Barlow Albumin/Globulin [Mass ratio] 1.1 {ratio} Normal [facility] Comment on above: Performed By: #### B MP, LIPID, LIVER #### [facility] [address] [address] [address] Carlos Barlow ALP [Catalytic activity/Vol] 92 U/L Normal 46-116 [facility] Comment on above: Performed By: #### B MP, LIPID, LIVER #### [facility] [address] [place] [address] Dr. Carlos Barlow ALT [Catalytic activity/Vol] 20 U/L Normal 14-59 [facility] Comment on above: Performed By: #### B MP, LIPID, LIVER #### [facility] [address] [address] [address] Carlos Barlow AST [Catalytic activity/Vol] 16 U/L Normal 15-37 [facility] Comment on above: Performed By: #### B MP, LIPID, LIVER #### [facility] [address] [address] [address] Carlos Barlow BILI, CONJUGATED 0.1 mg/dL Normal 0.0-0.2 [facility] Comment on above: Performed By: #### B MP, LIPID, LIVER #### [facility] [address] [address] [address] Carlos Barlow Bilirubin [Mass/Vol] 0.3 mg/dL Normal 0.2-1.0 [facility] Comment on above: Performed By: #### B MP, LIPID, LIVER #### [facility] [address] [address] [address] Carlos Barlow Globulin (S) [Mass/Vol] 3.4 g/dL Normal T [facility] Comment on above: Performed By: #### B MP, LIPID, LIVER #### [facility] [address] [address] [address] Carlos Barlow Protein [Mass/Vol] 7.0 g/dL Normal 6.4-8.2 [facility] Comment on above: Performed By: #### B MP, LIPID, LIVER #### [facility] [address] [address] [address] Carlos Barlwo PROF CHEM 8 (BAS METB)on Anion gap [Moles/Vol] 12.0 mmol/L Normal [facility] Comment on above: Performed By: #### B MP, LIPID, LIVER ####[facility] [address] [address]Dr. Carlos Barlow Calcium [Mass/Vol] 9.6 mg/dL Normal 8.5-10.1 [facility] Comment on above: Performed By: #### B MP, LIPID, LIVER ####[facility] [address] [address]Dr. Carlos Barlow Chloride [Moles/Vol] 105 mmol/L Normal 98-107 [facility] Comment on above: Performed By: #### B MP, LIPID, LIVER ####[facility] [address] [id number]. Carlos Barlow CO2 [Moles/Vol] 26.5 mmol/L Normal 21.0-32.0 [facility] Comment on above: Performed By: #### B MP, LIPID, LIVER ####[facility] [address] [phone]. Carlos Barlow Creatinine [Mass/Vol] 0.89 mg/dL Normal 0.55-1.02 [facility] Comment on above: Performed By: #### B MP, LIPID, LIVER ####[facility] [address] [id number]. Carlos Barlow EGFR-AF COMORAN >60 Normal >=60 [facility] Comment on above: Performed By: #### B MP, LIPID, LIVER ####[facility] [address] [id number]. Carlos Barlow EGFR-NON AF COMORAN >60 Normal >=60 [facility] Comment on above: Performed By: #### B MP, LIPID, LIVER ####[facility] [address] [phone]. Carlos Barlow Glucose [Mass/Vol] 116 mg/dL Critically high 74-106 [facility] Comment on above: Performed By: #### B MP, LIPID, LIVER ####[facility] [address] [phone]. Carlos Barlow Potassium [Moles/Vol] 4.0 mmol/L Normal 3.5-5.1 [facility] Comment on above: Performed By: #### B MP, LIPID, LIVER ####[facility] [address] [phone]. Carlos Barlow Sodium [Moles/Vol] 139 mmol/L Normal 136-145 [facility] Comment on above: Performed By: #### B MP, LIPID, LIVER ####[facility] [address] [phone]. Carlos Barlow Urea nitrogen [Mass/Vol] 24.0 mg/dL Critically high 7.0-18.0 [facility] Comment on above: Performed By: #### B MP, LIPID, LIVER ####[facility] [address] [address]Dr. Carlos Barlow Urea nitrogen/Creatinine [Mass ratio] 26.9 mg/mg Normal [facility] Comment on above: Performed By: #### B MP, LIPID, LIVER ####[facility] [address] [place], [place] [address]Dr. Carlos Barlow CBC AUTO DIFFon 02-19-2022 BASO # 0.0 103/ul Normal 0.0-0.1 [facility] Comment on above: Performed By: #### C BC ####[facility] [address] [place], [place] [address]Dr. Carlos Barlow Basophils/100 WBC (Bld) 0.4 % Normal 0.2-2.0 [facility] Comment on above: Performed By: #### C BC ####[facility] [address] [place], [place] [address]DrVidal Barlow EO # 0.2 103/ul Normal 0.0-0.7 [facility] Comment on above: Performed By: #### C BC ####[facility] [address] [place], [place] [address]DrVidal Barlow Eosinophils/100 WBC (Bld) 4.1 % Normal 0.9-7.0 [facility] Comment on above: Performed By: #### C BC ####[facility] [address] [place], [place] [address]Dr. Carlos Barlow Erythrocyte distribution width (RBC) [Ratio] 13.2 % Normal 11.0-15.0 [facility] Comment on above: Performed By: #### C BC ####[facility] [address] [place], [place] [address]DrVidal Barlow Hematocrit (Bld) [Volume fraction] 37.9 % Normal 36.0-48.0 [facility] Comment on above: Performed By: #### C BC ####[facility] [address] [place], [place] [address]Dr. Carlos Barlow Hemoglobin (Bld) [Mass/Vol] 12.7 g/dL Normal 12.0-16.0 [facility] Comment on above: Performed By: #### C BC ####[facility] [address] [address]Dr. Carlos Barlow IG # 0.02 10e3/ul Normal 0.00-0.03 [facility] Comment on above: Performed By: #### C BC ####[facility] [address] [address]Dr. Carlos Barlow IG % 0.4 % Normal 0.0-0.5 [facility] Comment on above: Performed By: #### C BC ####[facility] [address] [place], [place] [address]DrVidal Barlow LYMPH # 0.9 103/ul Critically low 1.2-3.[address] [facility] Comment on above: Performed By: #### C BC ####[facility] [address] [place], [place] [address]Dr. Carlos Barlow Lymphocytes/100 WBC (Bld) 17.7 % Critically low 20.5-60.0 [facility] Comment on above: Performed By: #### C BC ####[facility] [address] [place], [place] [address]DrVidal Barlow MANUAL DIFF REQ NO Normal [facility] Comment on above: Performed By: #### C BC ####[facility] [address] [place], [place] [address]DrVidal Barlow MCH (RBC) [Entitic mass] 28.4 pg Normal 26.7-34.0 [facility] Comment on above: Performed By: #### C BC ####[facility] [address] [place], [place] [address]Dr. Cralos Barlow MCHC (RBC) [Mass/Vol] 33.5 g/dL Normal 29.9-35.2 [facility] Comment on above: Performed By: #### C BC ####[facility] [address] [place], [place] [address]Dr. Cralos Barlow MCV (RBC) [Entitic vol] 84.8 fL Normal 81.0-99.0 [facility] Comment on above: Performed By: #### C BC ####[facility] [address] [place], [place] [address]DrVidal Barlow MONO # 0.7 103/ul Normal 0.3-0.8 [facility] Comment on above: Performed By: #### C BC ####[facility] [address] [place], [place] [address]DrVidal Carlos Barlow Monocytes/100 WBC (Bld) 13.4 % Critically high 1.7-12. 0 [facility] Comment on above: Performed By: #### C BC ####[facility] [address] [place], [place] [address]DrVidal Carlos Barlow NEUT # 3.3 103/ul Normal 1.4-6.5 [facility] Comment on above: Performed By: #### C BC ####[facility] [address] [place], [place] [address]DrVidal Carlos Barlow Neutrophils/100 WBC (Bld) 64.0 % Normal 43.0-75.0 [facility] Comment on above: Performed By: #### C BC ####[facility] [address] [place], [place] [address]DrVidal Carlos Barlow Platelet mean volume (Bld) [Entitic vol] 10.5 fL Normal 9.5-13.5 [facility] Comment on above: Performed By: #### C BC ####[facility] [address] [place], [place] [address]DrVidal Carlos Barlow PLT 252 103/ul Normal 150-450 [facility] Comment on above: Performed By: #### C BC ####[facility] [address] [place], [place] [address]DrVidal Carlos Cain RBC 4.47 106/ul Normal 4.20-5.40 [facility] Comment on above: Performed By: #### C BC ####[facility] [address] [place], [place] [address]Dr. Carlos Barlow WBC 5.2 103/ul Normal 4.0-11.0 [facility] Comment on above: Performed By: #### C BC ####[facility] [address] [place], [place] [address]TmDr. Carlos Barlow LIPID PROFILEon 02-19-2022 CHOL-HDL RATIO NORM SEE BELOW Normal [facility] Comment on above: Result Comment: 3.3 - 4.4 LOW RISK 4.4 - 7.1 AVERAGE RISK 7.1 - 11.0 MODERATE RISK >11.0 HIGH RISK Performed By: #### C MP, LIPID #### [facility] [address] [place], [place] [address] Dr. Carlos Barlow Cholesterol [Mass/Vol] 241 mg/dL Critically high <=200 [facility] Comment on above: Performed By: #### C MP, LIPID #### [facility] [address] [place], [place] [address] Dr. Carlos Barlow Cholesterol in HDL [Mass/Vol] 51 mg/dL Normal 40-60 [facility] Comment on above: Performed By: #### C MP, LIPID #### [facility] [address] [place], [place] [address] Dr. Carlos Barlow Cholesterol in LDL [Mass/Vol] 133.8 mg/dL Normal [facility] Comment on above: Performed By: #### C MP, LIPID #### [facility] [address] [place], [place] [address] Dr. Carlos Barlow Cholesterol.total/Sharita sterol in HDL [Mass ratio] 4.7 {ratio} Normal [facility] Comment on above: Performed By: #### C MP, LIPID #### [facility] [address] [place], [place] [address] Dr. Carlos Barlow HDL NORMAL > or = 60 mg/dl - LO W CARDIOVASCULAR RISK <40 mg/dl - HIGH CARDIOVASCULAR RISK Normal [facility] Comment on above: Performed By: #### C MP, LIPID #### [facility] [address] [place], [place] [address] Dr. Carlos Barlow LDL CALC NORMAL SEE BELOW Normal [facility] Comment on above: Result Comment: <100 mg/dl OPTIMAL 100 - 129 mg/dl NEAR OR ABOVE OPTIMAL 130 - 159 mg/dl BORDERLINE HIGH 160 - 189 mg/dl HIGH >190 mg/dl VERY HIGH Performed By: #### C MP, LIPID #### [facility] [address] [place] [address] Dr. Carlos Barlow Triglyceride [Mass/Vol] 281 mg/dL Critically high <=150 [facility] Comment on above: Performed By: #### C MP, LIPID #### [facility] [address] [place] [address] Dr. Carlos Barlow VLDL CALC 56.2 mg/dL Normal [facility] Comment on above: Performed By: #### C MP, LIPID #### [facility] [address] [place] [address] Dr. Carlos Barlow PROF 14(COMP METB)on 022 Albumin [Mass/Vol] 3.3 g/dL Critically low 3.4-5.0 Th e [facility] Comment on above: Performed By: #### C MP, LIPID #### [facility] [address] [place] [address] Dr. Carlos Barlow Albumin/Globulin [Mass ratio] 0.9 {ratio} Normal [facility] Comment on above: Performed By: #### C MP, LIPID #### [facility] [address] [place] [address] Dr. Carlos Barlow ALP [Catalytic activity/Vol] 96 U/L Normal 46-116 [facility] Comment on above: Performed By: #### C MP, LIPID #### [facility] [address] [place] [address] Dr. Carlos Barlow ALT [Catalytic activity/Vol] 21 U/L Normal 14-59 [facility] Comment on above: Performed By: #### C MP, LIPID #### [facility] [address] [place] [address] Dr. Carlos Barlow Anion gap [Moles/Vol] 7.2 mmol/L Normal [facility] Comment on above: Performed By: #### C MP, LIPID #### [facility] [address] [place] [address] Dr. Carlos Barlow AST [Catalytic activity/Vol] 14 U/L Critically low 15-37 [facility] Comment on above: Performed By: #### C MP, LIPID #### [facility] [address] [place] [address] Dr. Carlos Barlow Bilirubin [Mass/Vol] 0.2 mg/dL Normal 0.2-1.0 [facility] Comment on above: Performed By: #### C MP, LIPID #### [facility] [address] [place] [address] Dr. Carlos Barlow Calcium [Mass/Vol] 9.5 mg/dL Normal 8.5-10.1 [facility] Comment on above: Performed By: #### C MP, LIPID #### [facility] [address] [place] [address] Dr. Carlos Barlow Chloride [Moles/Vol] 103 mmol/L Normal 98-107 [facility] Comment on above: Performed By: #### C MP, LIPID #### [facility] [address] [place] [address] Dr. Carlos Barlow CO2 [Moles/Vol] 32.1 mmol/L Critically high 21.0-32.0 [facility] Comment on above: Performed By: #### C MP, LIPID #### [facility] [address] [place] [address] Dr. Carlos Barlow Creatinine [Mass/Vol] 0.80 mg/dL Normal 0.55-1.02 [facility] Comment on above: Performed By: #### C MP, LIPID #### [facility] [address] [place] [address] Dr. Carlos Barlow EGFR-AF COMORAN >60 Normal >=60 [facility] Comment on above: Performed By: #### C MP, LIPID #### [facility] [address] [place] [address] Dr. Carlos Barlow EGFR-NON AF COMORAN >60 Normal >=60 [facility] Comment on above: Performed By: #### C MP, LIPID #### [facility] [facility] [address] [place] [address] Dr. Carlos Barlow Globulin (S) [Mass/Vol] 3.5 g/dL Normal [facility] Comment on above: Performed By: #### C MP, LIPID #### [facility] [address] [place] [address] Dr. Carlos Barlow Glucose [Mass/Vol] 110 mg/dL Critically high 74-106 [facility] Comment on above: Performed By: #### C MP, LIPID #### [facility] [address] [place] [address] Dr. Carlos Barlow Potassium [Moles/Vol] 4.3 mmol/L Normal 3.5-5.1 [facility] Comment on above: Performed By: #### C MP, LIPID #### [facility] [address] [place] [address] Dr. Carlos Barlow Protein [Mass/Vol] 6.8 g/dL Normal 6.4-8.2 [facility] Comment on above: Performed By: #### C MP, LIPID #### [facility] [address] [place] [address] Dr. Carlos Barlow Sodium [Moles/Vol] 138 mmol/L Normal 136-145 [facility] Comment on above: Performed By: #### C MP, LIPID #### [facility] [address] [place] [address] Dr. Carlos Barlow Urea nitrogen [Mass/Vol] 15.0 mg/dL Normal 7.0-18.0 [facility] Comment on above: Performed By: #### C MP, LIPID #### [facility] [address] [place] [address] Dr. Carlos Barlow Urea nitrogen/Creatinine [Mass ratio] 18.8 mg/mg Normal [facility] Comment on above: Performed By: #### C MP, LIPID #### [facility] [address] [place], [place] [id number] Dr. Carlos Barlow Vital Signs Date Time Vital Sign Value Performing Clinician Faith felton 02-20-2025 14:31-0400 Body height 149.86 cm Jeffy Ramos MD Work Phone: [facility] 02-20-2025 14:31-0400 Body mass index (BMI) [Ratio] 34.4 kg/m2 Jeffy Ramos MD Work Phone: [facility] 02-20-2025 14:31-0400 Body temperature 98.1 [degF] Jeffy Ramos MD Work Phone: [facility] 02-20-2025 14:31-0400 Body weight 77.33 kg Jeffy Ramos MD Work Phone: [facility] 02-20-2025 14:31-0400 Diastolic blood pressure 55 mm[Hg] Jeffy Ramos MD Work Phone: [facility] 02-20-2025 14:31-0400 Heart rate 68 /min Jeffy Ramos MD Work Phone: [facility] 02-20-2025 14:31-0400 SaO2% (BldA) [Mass fraction] 97 % Jeffy Ramos MD Work Phone: [facility] 02-20-2025 14:31-0400 Systolic blood pressure 88 mm[Hg] Jeffy Ramos MD Work Phone: [facility] 02-02-2025 14:58-0400 Body height 149.86 cm Jeffy Ramos MD Work Phone: [facility] 02-02-2025 14:58-0400 Body mass index (BMI) [Ratio] 34.5 kg/m2 Jeffy Ramos MD Work Phone: [facility] 02-02-2025 14:58-0400 Body weight 77.56 kg Jeffy Ramos MD Work Phone: [facility] 02-02-2025 14:58-0400 Diastolic blood pressure 72 mm[Hg] Jeffy Ramos MD Work Phone: [facility] 02-02-2025 14:58-0400 Heart rate 61 /min Jeffy Ramos MD Work Phone: [facility] 02-02-2025 14:58-0400 Systolic blood pressure 121 mm[Hg] Jeffy Ramos MD Work Phone: [facility] 01-31-2025 13:51-0400 Diastolic blood pressure 82 mm[Hg] Jeffy Ramos MD Work Phone: [facility] 01-31-2025 13:51-0400 Heart rate 73 /min Jeffy Ramos MD Work Phone: [facility] 01-31-2025 13:51-0400 SaO2% (BldA) [Mass fraction] 97 % Jeffy Ramos MD Work Phone: [facility] 01-31-2025 13:51-0400 Systolic blood pressure 136 mm[Hg] Jeffy Ramos MD Work Phone: [facility] 01-23-2025 08:35-0400 Body height 149.86 cm Jeffy Ramos MD Work Phone: [facility] 01-23-2025 08:35-0400 Body mass index (BMI) [Ratio] 34.5 kg/m2 Jeffy Ramos MD Work Phone: [facility] 01-23-2025 08:35-0400 Body weight 77.56 kg Jeffy Ramos MD Work Phone: [facility] 01-23-2025 08:35-0400 Diastolic blood pressure 82 mm[Hg] Jeffy Ramos MD Work Phone: [facility] 01-23-2025 08:35-0400 Heart rate 71 /min Jeffy Ramos MD Work Phone: [facility] 01-23-2025 08:35-0400 Respiratory rate 16 /min Jeffy Ramos MD Work Phone: [facility] 01-23-2025 08:35-0400 SaO2% (BldA) [Mass fraction] 98 % Jeffy Ramos MD Work Phone: [facility] 01-23-2025 08:35-0400 Systolic blood pressure 130 mm[Hg] Jeffy Ramos MD Work Phone: [facility] 12-27-2024 09:28-0400 Body height 149.86 cm Jeffy Ramos MD Work Phone: [facility] 12-27-2024 09:28-0400 Body mass index (BMI) [Ratio] 35.3 kg/m2 Jfefy Ramos MD Work Phone: [facility] 12-27-2024 09:28-0400 Body weight 79.37 kg Jeffy Ramos MD Work Phone: [facility] 12-27-2024 09:28-0400 Diastolic blood pressure 60 mm[Hg] Jeffy Ramos MD Work Phone: [facility] 12-27-2024 09:28-0400 Heart rate 77 /min Jeffy Ramos MD Work Phone: [facility] 12-27-2024 09:28-0400 Systolic blood pressure 100 mm[Hg] Jeffy Ramos MD Work Phone: [facility] 10-11-2024 11:51-0400 Diastolic blood pressure 79 mm[Hg] Christopher Garrick DO Work Phone: [facility] 10-11-2024 11:51-0400 Heart rate 75 /min Christopher Garrick DO Work Phone: [facility] 10-11-2024 11:51-0400 Systolic blood pressure 136 mm[Hg] Christopher Garrick DO Work Phone: [facility] 09-13-2024 14:13-0400 Body height 149.9 cm Paula Benson RURAL SOCIOLOGIST Work Phone: [facility] 09-13-2024 14:13-0400 Body mass index (BMI) [Ratio] 35.14 kg/m2 Paula Benson RURAL SOCIOLOGIST Work Phone: [facility] 09-13-2024 14:13-0400 Body weight 78.93 kg Paula Benson RURAL SOCIOLOGIST Work Phone: [facility] 09-13-2024 14:13-0400 Diastolic blood pressure 78 mm[Hg] Paula Besnon RURAL SOCIOLOGIST Work Phone: [facility] 09-13-2024 14:13-0400 Systolic blood pressure 132 mm[Hg] Paula Marquisoll RURAL SOCIOLOGIST Work Phone: [facility] 08-16-2024 14:04-0500 Body height 149.86 cm [facility] 08-16-2024 14:04-0500 Body mass index (BMI) [Ratio] 35.1 kg/m2 [facility] 08-16-2024 14:04-0500 Body weight 78.92 kg [facility] 08-16-2024 14:04-0500 Diastolic blood pressure 73 mm[Hg] [facility] 08-16-2024 14:04-0500 Heart rate 64 /min [facility] 08-16-2024 14:04-0500 Systolic blood pressure 116 mm[Hg] [facility] 05-24-2024 16:04-0500 Body mass index (BMI) [Ratio] 38.17 kg/m2 Christopher Garrick DO Work Phone: [facility] 05-24-2024 16:04-0500 Body weight 85.73 kg Christopher Garrick DO Work Phone: [facility] 05-24-2024 16:04-0500 Diastolic blood pressure 76 mm[Hg] Christopher Garrick DO Work Phone: [facility] 05-24-2024 16:04-0500 Heart rate 67 /min Christopher Garrick DO Work Phone: [facility] 05-24-2024 16:04-0500 SaO2% (BldA) [Mass fraction] 97 % Christopher Garrick DO Work Phone: [facility] 05-24-2024 16:04-0500 Systolic blood pressure 128 mm[Hg] Christopher Garrick DO Work Phone: [facility] 05-03-2024 14:38-0500 Blood Pressure Location SARANYA WAYNE [facility] 05-03-2024 14:38-0500 Body temperature 98.6 [degF] SARANYA WAYNE [facility] 05-03-2024 14:38-0500 Diastolic blood pressure 67 mm[Hg] SARANYA PERAZARY [facility] 05-03-2024 14:38-0500 Heart rate 73 /min SARANYA WAYNE [facility] 05-03-2024 14:38-0500 Respiratory rate 18 /min SARANYA WAYNE [facility] 05-03-2024 14:38-0500 Systolic blood pressure 123 mm[Hg] SARANYA WAYNE [facility] 04-19-2024 08:47-0500 Body mass index (BMI) [Ratio] 35.31 kg/m2 Christopher Garrick DO Work Phone: [facility] 04-19-2024 08:47-0500 Body weight 79.29 kg Christopher Garrick DO Work Phone: [facility] 04-19-2024 08:47-0500 Diastolic blood pressure 82 mm[Hg] Christopher Garrick DO Work Phone: [facility] 04-19-2024 08:47-0500 Heart rate 73 /min Christopher Garrick DO Work Phone: [facility] 04-19-2024 08:47-0500 SaO2% (BldA) [Mass fraction] 93 % Christopher Garrick DO Work Phone: [facility] 04-19-2024 08:47-0500 Systolic blood pressure 143 mm[Hg] Christopher Garrick DO Work Phone: [facility] 10-16-2023 10:31-0400 Blood Pressure Location Jean Paul URBAN [facility] 10-16-2023 10:31-0400 Diastolic blood pressure 78 mm[Hg] Jean Paul URBAN [facility] 10-16-2023 10:31-0400 Heart rate 80 /min Jean Paul URBAN [facility] 10-16-2023 10:31-0400 Respiratory rate 16 /min Jean Paul URBAN [facility] 10-16-2023 10:31-0400 Systolic blood pressure 134 mm[Hg] Jean Paul URBAN [facility] 07-18-2023 10:05-0500 Body height 149.86 cm Lissa Prather Other [facility] Other 07-18-2023 10:05-0500 Body mass index (BMI) [Ratio] 33.42 kg/m2 Lissa Prather Other [facility] Other 07-18-2023 10:05-0500 Body temperature 96.2 [degF] Lissa Prather Other [facility] Other 07-18-2023 10:05-0500 Body weight 75.07 kg Lissa Yamilka Other [facility] Other 07-18-2023 10:05-0500 Diastolic blood pressure 81 mm[Hg] Lissa Prather Other [facility] Other 07-18-2023 10:05-0500 Respiratory rate 18 /min Lissa Prather Other [facility] Other 07-18-2023 10:05-0500 SaO2% (BldA) [Mass fraction] 96 % Lissa Prather Other [facility] Other 07-18-2023 10:05-0500 Systolic blood pressure 181 mm[Hg] Lissa Prather Other [facility] Other 06-29-2023 11:17-0500 Blood Pressure Location Jean Paul URBAN [facility] 06-29-2023 11:17-0500 Diastolic blood pressure 78 mm[Hg] Jean Paul URBAN [facility] 06-29-2023 11:17-0500 Heart rate 69 /min Jean Paul URBAN [facility] 06-29-2023 11:17-0500 Respiratory rate 16 /min Jean Paul URBAN [facility] 06-29-2023 11:17-0500 Systolic blood pressure 134 mm[Hg] Jean Paul URBAN [facility] 06-03-2023 09:00-0500 Body height 149.86 cm Marine Watson Other [facility] Other 06-03-2023 09:00-0500 Body mass index (BMI) [Ratio] 33.93 kg/m2 Marine Watson Other [facility] Other 06-03-2023 09:00-0500 Body temperature 96.7 [degF] Marine Watson Other [facility] Other 06-03-2023 09:00-0500 Body weight 76.2 kg Marine Watson Other [facility] Other 06-03-2023 09:00-0500 Diastolic blood pressure 80 mm[Hg] Marine Watson Other [facility] Other 06-03-2023 09:00-0500 SaO2% (BldA) [Mass fraction] 96 % Marine Watson Other [facility] Other 06-03-2023 09:00-0500 Systolic blood pressure 142 mm[Hg] Marine Watson Other [facility] Other 05-05-2023 09:45-0500 Body height 149.86 cm Jeffy Ramos Other [facility] Other 05-05-2023 09:45-0500 Body mass index (BMI) [Ratio] 33.93 kg/m2 Jeffy Ramos Other [facility] Other 05-05-2023 09:45-0500 Body weight 76.2 kg Jeffy Ramos Other [facility] Other 05-05-2023 09:45-0500 Diastolic blood pressure 76 mm[Hg] Jeffy Ramos Other [facility] Other 05-05-2023 09:45-0500 Systolic blood pressure 142 mm[Hg] Jeffy Ramos Other [facility] Other 04-29-2023 09:45-0500 Body height 149.86 cm Gucci Meyers Other [facility] Other 04-29-2023 09:45-0500 Body mass index (BMI) [Ratio] 34.53 kg/m2 Gucci Lowryjair Other [facility] Other 04-29-2023 09:45-0500 Body temperature 97.4 [degF] Gucci Luigi Other [facility] Other 04-29-2023 09:45-0500 Body weight 77.57 kg Gucci Luigi Other [facility] Other 04-29-2023 09:45-0500 Diastolic blood pressure 62 mm[Hg] Gucci Luigi Other [facility] Other 04-29-2023 09:45-0500 SaO2% (BldA) [Mass fraction] 99 % Gucci Luigi Other [facility] Other 04-29-2023 09:45-0500 Systolic blood pressure 140 mm[Hg] Gucci Luigi Other [facility] Other 04-09-2023 09:15-0400 Body height 149.86 cm Jeffy Ramos Other [facility] Other 04-09-2023 09:15-0400 Body mass index (BMI) [Ratio] 34.53 kg/m2 Jeffy Ramos Other [facility] Other 04-09-2023 09:15-0400 Body weight 77.57 kg Jeffy Ramos Other [facility] Other 04-09-2023 09:15-0400 Diastolic blood pressure 78 mm[Hg] Jeffy Ramos Other [facility] Other 04-09-2023 09:15-0400 Systolic blood pressure 151 mm[Hg] Jeffy Ramos Other [facility] Other 03-27-2023 10:30-0400 Body height 149.86 cm Jeffy Ramos Other [facility] Other 03-27-2023 10:30-0400 Body mass index (BMI) [Ratio] 35.75 kg/m2 Jeffy Ramos Other [facility] Other 03-27-2023 10:30-0400 Body weight 80.29 kg Jeffy Ramos Other [facility] Other 03-27-2023 10:30-0400 Diastolic blood pressure 81 mm[Hg] Jeffy Ramos Other [facility] Other 03-27-2023 10:30-0400 Systolic blood pressure 147 mm[Hg] Jeffy Ramos Other [facility] Other 03-11-2023 11:00-0400 Body height 149.86 cm Jeffy Ramos Other [facility] Other 03-11-2023 11:00-0400 Body mass index (BMI) [Ratio] 33.73 kg/m2 Jeffy Ramos Other [facility] Other 03-11-2023 11:00-0400 Body weight 75.75 kg Jeffy Ramos Other [facility] Other 03-11-2023 11:00-0400 Diastolic blood pressure 66 mm[Hg] eJffy Ramos Other [facility] Other 03-11-2023 11:00-0400 Systolic blood pressure 109 mm[Hg] Jeffy Ramos Other [facility] Other 11-21-2022 10:45-0400 Body height 149.86 cm Jeffy Ramos Other [facility] Other 11-21-2022 10:45-0400 Body mass index (BMI) [Ratio] 33.12 kg/m2 Jeffy Ramos Other [facility] Other 11-21-2022 10:45-0400 Body weight 74.39 kg Jeffy Ramos Other [facility] Other 11-21-2022 10:45-0400 Diastolic blood pressure 70 mm[Hg] Jeffy Ramos Other [facility] Other 11-21-2022 10:45-0400 Systolic blood pressure 112 mm[Hg] Jeffy Ramos Other [facility] Other 10-14-2021 10:45-0400 Body height 149.86 cm Alex Horton Other [facility] Other 10-14-2021 10:45-0400 Body mass index (BMI) [Ratio] 33.93 kg/m2 Alex Horton Other [facility] Other 10-14-2021 10:45-0400 Body weight 76.2 kg Alex Horton Other [facility] Other 09-23-2021 11:15-0400 Body height 149.86 cm Alex Sol Other [facility] Other 09-23-2021 11:15-0400 Body mass index (BMI) [Ratio] 33.12 kg/m2 Alex Sol Other [facility] Other 09-23-2021 11:15-0400 Body weight 74.39 kg Alex Horton Other [facility] Other Encounters Encounter Date Encounter Type Care Provider Facility Start: 02-20-2025 End: 02-20-2025 ambulatory Jeffy Ramos MD Work Phone: [facility] Work Phone: Start: 02-20-2025 End: 02-20-2025 Patient encounter procedure Jeffy Ramos MD -[facility] Work Phone: Start: 02-02-2025 End: 02-02-2025 ambulatory Jeffy Ramos MD Work Phone: [facility] Work Phone: Start: 02-02-2025 End: 02-02-2025 Patient encounter procedure Jeffy Ramos MD -[facility] Work Phone: Start: 01-31-2025 End: 01-31-2025 ambulatory Jeffy Ramos MD Work Phone: [facility] Work Phone: Start: 01-31-2025 End: 01-31-2025 Patient encounter procedure Mustapha Conner DO -[facility] Work Phone: Start: 01-23-2025 End: 01-23-2025 ambulatory Jeffy Ramos MD Work Phone: [facility] Work Phone: Start: 01-23-2025 End: 01-23-2025 Patient encounter procedure Paula Benson APRN-[employer]ER [employer]ER-C -[facility] [place] Work Phone: Start: 01-16-2025 Non-patient / Non-visit Cristela Godoy CMA -[facility] Work Phone: Start: 01-14-2025 Non-patient / Non-visit Christian Loja DO -[facility] Work Phone: Start: 12-27-2024 End: 12-27-2024 ambulatory Jeffy Ramos MD Work Phone: [facility] Work Phone: Start: 12-27-2024 End: 12-27-2024 Patient encounter procedure Jeffy Ramos MD -[facility] Work Phone: Start: 12-15-2024 End: 12-15-2024 ambulatory [facility] Start: 11-10-2024 Non-patient / Non-visit Cynthia giraldo [facility] Work Phone: Start: 11-10-2024 End: 11-10-2024 ambulatory [facility] Start: 10-18-2024 End: 10-18-2024 ambulatory [facility] Start: 10-11-2024 End: 10-11-2024 Bamboo flowsheet Mustapha [...] 09-13-2024 End: 09-13-2024 Bamboo flowsheet Paula Benson RURAL SOCIOLOGIST Work Phone: [facility] Start: 09-13-2024 End: 09-13-2024 Bamboo flowsheet Paula Benson RURAL SOCIOLOGIST Work Phone: [facility] Start: 09-06-2024 End: 09-06-2024 Patient encounter procedure Jeffy Ramos MD Work Phone: [facility] [place] Work Phone: Start: 09-06-2024 End: 09-06-2024 ambulatory Jeffy Ramos MD Work Phone: [facility] Work Phone: Start: 08-16-2024 End: 08-16-2024 ambulatory [facility] Work Phone: Start: 08-16-2024 End: 08-16-2024 Patient encounter procedure [facility] Work Phone: Start: 05-24-2024 End: 05-24-2024 [...] Start: 05-18-2024 End: 05-18-2024 ambulatory Angela [place] TRANSITION OF CARE SPECIALIST [facility] Comment on above: Paresthesia (Primary Dx); Radiculopathy, lumbar region Start: 05-17-2024 End: 05-17-2024 Bamboo flowsheet Mustapha Mccauley DO Work Phone: [facility] [address] Start: 05-17-2024 End: 05-17-2024 Bamboo flowsheet Mustapha Mccauley DO Work Phone: [facility] [address] Start: 05-17-2024 End: 05-17-2024 Patient encounter procedure Mustapha Mccauley DO Work Phone: [facility] Comment on above: Lumbosacral radiculo bhumika (Primary Dx); Paresthesia Start: 05-17-2024 End: 05-17-2024 ambulatory MUSTAPHA MCCAULEY Not Available Start: 05-10-2024 End: 05-10-2024 ambulatory Angela [place] TRANSITION OF CARE SPECIALIST [facility] Comment on above: Paresthesia (Primary Dx); Radiculopathy, lumbar region Start: 05-05-2024 End: 05-05-2024 Bamboo flowsheet Angela [place] TRANSITION OF CARE SPECIALIST [facility] Start: 05-05-2024 End: 05-05-2024 Bamboo flowsheet Angela [place] TRANSITION OF CARE SPECIALIST [facility] Start: 05-05-2024 End: 05-05-2024 ambulatory Angela [place] TRANSITION OF CARE SPECIALIST [facility] Comment on above: Paresthesia (Primary Dx); Radiculopathy, lumbar region Start: 05-03-2024 End: 05-03-2024 Patient encounter procedure SARANYA WAYNE [facility] Start: 05-03-2024 End: 05-03-2024 Bamboo flowsheet Angela [place] TRANSITION OF CARE SPECIALIST [facility] Start: 05-03-2024 End: 05-03-2024 Bamboo flowsheet Angela [place] TRANSITION OF CARE SPECIALIST [facility] Start: 05-03-2024 End: 05-03-2024 ambulatory Angela Looney TRANSITION OF CARE SPECIALIST [facility] Comment on above: Paresthesia [...] Bamboo flowsheet Mustapha Mccauley DO Work Phone: [facility] [place] [address] Start: 04-19-2024 End: 04-19-2024 Bamboo flowsheet Mustapha Mccauley DO Work Phone: [employer] [facility] [place] [address] Start: 04-19-2024 End: 04-19-2024 Office outpatient new 45 minutes Mustapha Mccauley DO Work Phone: [facility] [place] [facility] Comment on above: Paresthesia (Primary Dx) Start: 04-19-2024 End: 04-19-2024 ambulatory MUSTAPAH MCCAULEY Not Available Start: 02-16-2024 End: 02-16-2024 ambulatory [facility] Start: 10-16-2023 End: 10-16-2023 ambulatory Jean Paul URBAN Facility:[facility] Start: 10-16-2023 End: 10-16-2023 Patient encounter procedure Jean Paul URBAN [facility] [place] Start: 07-28-2023 End: 07-28-2023 ambulatory Jean Paul URBAN [place] Start: 07-28-2023 End: 07-28-2023 Patient encounter procedure Jean Paul URBAN [facility] Start: 07-18-2023 End: 07-18-2023 ambulatory Lissa Prather Other [facility] Other Start: 07-18-2023 Office outpatient vi sit 15 minutes Lissa Prather [facility] Start: 06-29-2023 End: 06-29-2023 ambulatory Jean Paul URBAN Facility:[facility] Start: 06-29-2023 End: 06-29-2023 Patient encounter procedure Jean Paul URBAN [facility] Start: 06-03-2023 End: 06-03-2023 Patient encounter procedure Marine Watson [facility] Vascular Surgery Start: 06-03-2023 End: 06-03-2023 ambulatory NON STAFF [facility] Other Start: 05-20-2023 End: 05-20-2023 ambulatory Jeffy Ramos Other [facility] Other Start: 05-20-2023 Telephone encounter Jeffy Ramos [facility] Start: 05-05-2023 End: 05-05-2023 ambulatory Jeffy Ramos Other [facility] Other Start: 05-05-2023 Office outpatient vi sit 15 minutes Jeffy Ramos [facility] Start: 04-29-2023 End: 04-29-2023 ambulatory Gucci Luigi Other [facility] Other Start: 04-29-2023 Office outpatient ne w 30 minutes Gucci Meyers [facility] Start: 04-29-2023 Telephone encounter Gucci sexton [facility] [employer] Start: 04-21-2023 End: 04-21-2023 ambulatory Alex Horton Other [facility] Other Start: 04-21-2023 Telephone encounter [facility] Start: 04-09-2023 End: 04-09-2023 ambulatory Jeffy Ramos Other [facility] Other Start: 04-09-2023 Office outpatient vi sit 15 minutes Jeffy Ramos [facility] Start: 03-30-2023 End: 03-30-2023 ambulatory Jeffy Ramos Other [facility] Other Start: 03-30-2023 Telephone encounter Jeffy Ramos [facility] Start: 03-27-2023 End: 03-27-2023 ambulatory Jeffy Ramos Other [facility] Other Start: 03-27-2023 Office outpatient vi sit 15 minutes Jeffy Ramos [facility] Start: 03-24-2023 End: 03-24-2023 ambulatory Jeffy Ramos Other [facility] Other Start: 03-24-2023 Telephone encounter Jeffy Ramos [facility] Start: 03-11-2023 End: 03-11-2023 ambulatory Jeffy Ramos Other [facility] Other Start: 03-11-2023 Office outpatient vi sit 15 minutes Jeffy Ramos [facility] Start: 02-23-2023 End: 02-23-2023 ambulatory NON STAFF [facility] Work Phone: Start: 02-23-2023 End: 02-23-2023 Patient encounter procedure [facility] Start: 02-03-2023 End: 02-03-2023 ambulatory Jeffy Ramos Other [facility] Other Start: 02-03-2023 Telephone encounter Jeffy Ramos [facility] Start: 11-21-2022 End: 11-21-2022 ambulatory Jeffy Ramos Other [facility] Other Start: 11-21-2022 Office outpatient vi sit 15 minutes Jeffy Ramos [facility] Start: 09-26-2022 End: 09-26-2022 ambulatory Jeffy Ramos Other [facility] Other Start: 09-26-2022 Telephone encounter Jeffy Ramos [facility] Start: 09-24-2022 Nursing evaluation o f patient and report Jeffy Ramos [facility] Start: 09-24-2022 End: 09-25-[address] JEFFY RAMOS [facility] Work Phone: Start: 09-24-2022 End: 09-24-2022 Departed Referred MD Jeffy Ramos Work Phone: [facility] [address] [place] Work Phone: Start: 07-07-2022 (Televisit) Televisit Jeffy De [facility] Start: 07-07-2022 End: 07-07-2022 ambulatory Jeffy Ramos Other [facility] Other Start: 07-05-2022 End: 07-06-[address] DOCTOR MCCULLOUGH Facility:[facility] Start: 05-13-2022 Adult health examination Zaina Ramos Other [facility] Other Start: 05-05-2022 End: 05-05-[address] JEFFY RAMOS Facility:[facility] Start: 04-02-2022 End: 04-02-2022 ambulatory Alex Horton Other [facility] Other Start: 04-02-2022 Office outpatient vi sit 15 minutes Alex Horton [facility] Start: 03-31-2022 End: 04-01-[address] JEFFY RAMOS Facility:[facility] Start: 03-10-2022 End: 03-11-[address] CYNTHIA BARRY Facility:[facility] Start: 02-19-2022 End: 02-20-2022 ambulatory ANGELA BRAND Facility:[facility] Start: 11-13-2021 End: 11-13-2021 ambulatory Alex Horton Other [facility] Other Start: 11-13-2021 Telephone encounter Alex Horton [facility] Start: 10-28-2021 End: 10-28-2021 ambulatory Alex Horton Other [facility] Other Start: 10-28-2021 Telephone encounter Alex Horton [facility] Start: 10-23-2021 End: 10-23-2021 ambulatory Alex Horton Other [facility] Other Start: 10-23-2021 Telephone encounter Alex Horton [facility] Start: 10-14-2021 End: 10-14-2021 ambulatory Alex Horton Other [facility] Other Start: 10-14-2021 Office outpatient vi sit 25 minutes Alex Horton [facility] Start: 09-23-2021 End: 09-23-2021 ambulatory Alex Horton Other [facility] Other Start: 09-23-2021 Office outpatient vi sit [...] Visit [facility] [place] [address] [place] [address] Mustapha Mccauley DO [address] [place] [address] [facility] [place] Start: 01-23-2025 End: 01-23-2025 Patient encounter procedure 01/23/2025 9:00 AM EDT Office Visit [facility] [place] [address] [place] [address] Paula Benson, QUINTON [address] [place] [phone] [facility] [place] Start: 10-11-2024 End: 09-13-2025 Nerve Block Nerve Block Procedures Routine Lumbar spondylosis Lumbosacral radiculopathy Paresthesia Expected: 10/11/2024 (Approximate), Expires: 09/13/2025 [facility] Work Phone: Comment on above: Expected: 10/11/2024 (Approximate), Expires: 09/13/2025 Start: 10-11-2024 End: 10-11-2024 Patient encounter procedure 10/11/2024 11:45 AM EDT Office Visit [facility] [place] [address] [place] [address] Mustapha Mccauley DO [address] [place] [address] [facility] [place] Start: 09-13-2024 End: 09-13-2024 Patient encounter procedure 09/13/2024 2:20 PM EDT Office Visit [facility] [place] [address] [place] [address] Paula Benson NP [address] [place] [phone] Arrived [facility] [place] Comment on above: Arrived Start: 06-21-2024 End: 06-21-2024 Patient encounter procedure 06/21/2024 12:30 PM EST Office Visit [facility] [place] [address] [place] [address] Mustapha Mccauley DO [address] [place] [address] [facility] [place] [address] [facility] Start: 05-24-2024 End: 05-24-2024 Patient encounter procedure 05/24/2024 4:15 PM EST Office Visit [facility] [place] [address] [place] [address] Mustapha Mccauley, [address] [place] [address] [facility] [place] [facility] Start: 05-24-2024 End: 05-24-2025 MR [...] [address] [place] [address] Tess Lopez, PT [address] [facility] [address] [place] [address] [facility] Start: 05-19-2024 End: 05-19-2024 ambulatory 05/19/2024 11:00 AM EST Treatment [facility] [address] [place] [address] Tess Lopez, PT [address] [place] [address] [facility] Start: 05-18-2024 End: 05-18-2024 ambulatory 05/18/2024 9:30 AM EST Treatment [facility] [address] [place] [address] Angela Looney, TRANSITION OF CARE SPECIALIST [facility] Start: 05-17-2024 End: 05-17-2024 Patient encounter procedure [facility] [place] [facility] Comment on above: Arrived Start: 05-17-2024 End: 05-17-2024 ambulatory 05/17/2024 10:30 AM EST Treatment [facility] [address] [place] [address] Angela Looney, TRANSITION OF CARE SPECIALIST [facility] Start: 05-10-2024 End: 05-10-2024 ambulatory 05/10/2024 11:00 AM EST Treatment [facility] [address] [place] [address] Angela Looney, TRANSITION OF CARE SPECIALIST [facility] Start: 05-05-2024 End: 05-05-2024 ambulatory [facility] Comment on above: Arrived Start: 05-03-2024 End: 05-03-2024 ambulatory 05/03/2024 11:00 AM EST Treatment [facility] [address] [place] [address] Angela Looney, TRANSITION OF CARE SPECIALIST Arrived [facility] Comment on above: Arrived Start: 04-28-2024 End: 04-28-2024 ambulatory 04/28/2024 2:00 PM EST Evaluation [facility] [address] [place] [address] Tess Lopez, PT [address] [place] [address] [facility] Start: 04-28-2024 End: 04-28-2024 Patient encounter procedure 04/28/2024 8:30 AM EST Procedure Visit [facility] [place] [address] [facility] [place] [phone] Mustapha Mccauley DO [address] [place] [address] [facility] [place] [address] [facility] Start: 04-19-2024 End: 04-19-2025 EMG 2 Extremities EMG 2 Extremities Neurology Routine Paresthesia Expected: 04/19/2024, Expires: 04/19/2025 [facility] Work Phone: Comment on above: Expected: 04/19/2024 , Expires: 04/19/2025 Start: 04-19-2024 End: 04-19-2024 Patient encounter procedure 04/19/2024 9:00 AM EST Office Visit [facility] [place] [address] Mustapha Mccauley, DO [address] [place] [address] Arrived [facility] Comment on above: Arrived Start: 09-24-2022 Bacteria identified in Urine by Culture Urine Culture [facility] Start: 01-28-2021 Pneumococcal Vaccine : 65+ Years (1 of 1 - PCV) Pneumococcal Vaccine: 65+ Years (1 of 1 - PCV) [facility] Start: 01-28-2006 Pneumococcal Vaccine : 65+ Years (1 of 1 - PCV) Pneumococcal Vaccine: 65+ Years (1 of 1 - PCV) [facility] Start: 1996 Screening for malign ant neoplasm of breast Mammogram [facility] Start: 1956 Screening for malign ant neoplasm of colon [facility] Patient Education [facility] Work Phone: XR Hip - right 2 Views [facility] XR Lumbar spine 2 or 3 Views [facility] Immunizations Immunization Date Immunization Notes Care Provider Fa cility 04-05-2024 influenza virus vaccine, unspecified formulation SARANYA WAYNE [facility] 04-05-2024 influenza, high dose seasonal, preservative-free [facility] 04-08-2023 influenza virus vaccine, unspecified formulation Jean Paul URBAN [facility] 07-23-2022 Prevnar 20 Jeffy Ramos Other [facility] 03-22-2022 COVID-19 Vaccine Moderna - Documentation Purposes Only Jeffy Ramos Other [facility] 03-22-2022 influenza virus vaccine, split virus (incl. purified surface antigen) Jeffy Ramos Other [facility] Other 03-22-2022 influenza virus vaccine, unspecified formulation Jean Paul URBAN [facility] 03-22-2022 SARS-CoV-2 (COVID-19 ) [id number] Jean Paul URBAN [facility] 06-05-2021 pneumococcal conjuga te vaccine, 13 valent Jeffy Ramos Other [facility] 05-23-2021 Do not use COVID-19 Pfizer 2 dose Alex Sol Other [facility] 04-01-2021 influenza virus vaccine, unspecified formulation Jean Paul URBAN [facility] 09-28-2020 COVID-19 mRNA, Comirnaty (Pfizer) MD Jeffy Ramos Work Phone: [facility] 09-18-2020 Do not use COVID-19 Pfizer 2 dose Alex Sol Other [facility] 08-28-2020 Do not use COVID-19 Pfizer 2 dose Alex Sol Other [facility] 02-29-2020 influenza virus vaccine, unspecified formulation Jean Paul URBAN [facility] 03-25-2019 influenza virus vaccine, unspecified formulation Jean Paul URBAN [facility] 06-28-2018 zoster vaccine recombinant Jean Paul URBAN [facility] 03-30-2018 zoster vaccine recombinant Jean Paul URBAN [facility] 03-09-2018 influenza virus vaccine, split virus (incl. purified surface antigen) Jeffy Ramos Other [facility] Other 03-09-2018 influenza virus vaccine, unspecified formulation Jean Paul URBAN [facility] 02-29-2016 tetanus and diphther ia toxoids, adsorbed, preservative free, for adult use (5 Lf of tetanus toxoid and 2 Lf of diphtheria toxoid) Jeffy Ramos Other [facility] 04-09-2015 influenza virus vaccine, unspecified formulation Jean Paul URBAN [facility] 04-09-2015 tetanus and diphther ia toxoids, adsorbed, preservative free, for adult use (5 Lf of tetanus toxoid and 2 Lf of diphtheria toxoid) Jeffy Ramos Other [facility] Payers Date Payer Category Payer Self-pay [id number] 2021 Medicare (Managed Care) [facility] [id number] 2020 Unknown [id number] 1956 Unknown [id number] 2.16.840.1.966727.3.579. 2.593 1956 Unknown [id number] 2.16.840.1.289307.3.579. 2.593 1956 Unknown [id number] 2.16.840.1.579810.3.579. 2.593 1956 Unknown [id number] 2.16.840.1.071603.3.579. 2.593 1956 Unknown [id number] 2.16.840.1.697557.3.579. 2.593 1956 Unknown [id number] 2..840.1.457475.3.579. 2.593 1956 Unknown [id number] 2..840.1.075789.3.579. 2.727 1956 Unknown [id number] 2..840.1.206164.3.579. 2.727 1956 Unknown [id number] 2..840.1.551239.3.579. 2.727 1956 Unknown [id number] 2..840.1.438549.3.579. 2.727 1956 Unknown [id number] 2..840.1.706428.3.579. 2.125 1956 Unknown [id number] 2..840.1.716868.3.579. 2.125 1956 Unknown [id number] 2..840.1.226197.3.579. 2.125 1956 Unknown [id number] 2.16.840.1.071329.3.579. 2.125 1956 Unknown [id number] 2.16.840.1.852110.3.579. 2.1259 1956 Unknown [id number] 2.16.840.1.346188.3.579. 2.1259 1956 Unknown [id number] 2.16.840.1.966838.3.579. 2.1259 1956 Unknown [id number] 2.16.840.1.065463.3.579. 2.1259 1956 Unknown [id number] 2.16.840.1.751238.3.579. 2.9 1956 Unknown [id number] 2.16.840.1.750574.3.579. 2.1259 1956 Unknown [id number] 2.16.840.1.907726.3.579. 2.1259 Unknown [facility] [id number] Unknown [id number] 2.16.840.1.950409.3.579. 2.531 Social History Date Type Detail Facility Unknown if ever smoked [facility] Other Sex Assigned At [facility] Start: 10-22-2021 End: 04-15-2024 Tobacco smoking status NHIS Never smoked tobacco (finding) [facility] Start: 1955 Sex Assigned At Female F [facility] Tobacco smoking status Never [facility] Tobacco smoking status [facility] Tobacco smoking consumption unknown [facility] Start: 03-23-2024 Gender identity Identifies as female gender (finding) [facility] Start: 08-16-2024 End: 09-07-2024 Sex Female (finding) [facility] Functional Status Date Assessment Result Facility 05-03-2024 Functional Status N/A [facility] 10-16-2023 Functional Status N/A [facility] 07-28-2023 Functional Status N/A [facility] 06-29-2023 Functional Status N/A [facility] Clinical Notes 09-23-2021 to 12-27-2024 Note Date & Type Note Facility 12-27-2024 Evaluation note Diagnosis Onset Date Resolution Disorder of right middle ear acute December 27, 2024 9:27am Excessive cerumen in left ear canal acute December 27, 2024 9:27am DDD (degenerative disc disease), lumbar chronic January 23 8:27am Lumbosacral radiculopathy chronic January 23 8:27am [facility] Work Phone: 1(715) 797-259507-15-2025 Evaluation note* Diagnosis Onset Date Resolution Status Admit Date Disorder of right middle ear acute December 27, 2024 9:27am Excessive cerumen in left ea r canal acute December 27, 2024 9:27am DDD (degenerative disc disease), lumbar chronic January 23 8:27am Lumbosacral radiculopathy chronic January 23, 2025 8:27am Lumbar radiculopathy acute 2024 1:15pm [facility] Work Phone: 1(176) 920-460407-15-2025 Evaluation note* Diagnosis Onset Date Resolution Status [...] abscess w/o bleeding acute February 02 2:48pm [facility] Work Phone: 1(505) 107-491807-03-20[facility] Chief Complaint: [...] Last Recorded Vitals BP (more content not included)...[facility]05-29-20[facility] Chief [...] present. CARDIAC: S1, S2 (more content not included)...[facility]05-06-20[facility] Chief Complaint: Patient [...] 4.3, BUN 15, serum (more content not included)...[facility]04-29-2025 History of Present illness Narrative* Mustapha [...] monitoredafter the procedure. The patient (or responsible republican) was given post-procedure and discharge instructions to follow at home. The patient was discharged in stable condition. A follow-up appointment was made. The patient was instructed to avoid activities that would normally worsen the pain. Pre-procedure pain score: 5-6 /10 Billing Representative: RT Neville(Micheal) kVp: 103 Time (sec): 10 mA: 3.0 Patient ID: Pebbles Johnson is a 69 y.o. female. Nerve Block Date/Time: 10/11/2024 12:34 PM Performed by: Mustapha Mccauley DO Authorized by: Mustapha Mccauley DO Consent: Consent obtained: Written Consent given by: Patient [place] protocol: Procedure explained and questions answered to patient or proxy's satisfaction: yes Patient identity confirmed: Verbally with patient Location: Body area: Trunk Trunk nerve: Lumbar Procedure details: Guidance: fluoroscopy Steroid injected: Dexamethasone Post-procedure details: Procedure completion: Tolerated documented in this encounterSaint Luke's East [id number] History of Present illness Narrative* Paula Benson [...] 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 LUE strength deltoid , biceps , triceps , wrist extensors , wrist flexor , and record maker strength 5/5. RLE strength iliopsoas, quadriceps, tibialis [...] knee reflex 1+. Crockett's sign negative. Coordination: Obkgbp-gz-dhqf testing normal. Rapid alternating movements are normal. Gait: Appears mildly antalgic. Review and summary of old records: MRI of the lumbar spine with and without contrast at [facility] on 09/06/2024: 2 mm anterolisthesis of L4-L5. [...] At L3-L4, broad- based disc bulge with epak-sx-znxobvfc facet arthropathy. Mild to moderate centralcanal stenosis. [...] NP [facility] documented in this encounterSaint Luke's East HospitalQmevrllplj05-57-7021 Chief complaint+Reason for visit Narrative* Chief Complaint Admit Date hip pain talk about referral, ear lavage August 16, 2024 1:59pm r29.898 September 06, 2024 3:0 0pm Reason for Visit Admit Date Impacted cerumen of both ears August 16, 2024 1:59pm Lumbar pain August 16, 2024 1:59 pm [facility] Work Phone: 1(569) 316-227603-04-2025 Evaluation note* Diagnosis Onset Date Resolution Status Admit Date Impacted cerumen of both ears acute August 16, 2024 1:59pm Lumbar pain acute August 16 1:59pm [facility] Work Phone: 1(226) 335-303912-10-2024 History of Present illness Narrative* Mustapha Mccauley, [...] , wrist extensors , wrist flexor , record maker strength 5/5. LUE Strength deltoid , biceps , triceps , wrist extensors , wrist flexor , record maker strength 5/5. RLE Strength illopsoas, quadriceps, tibialis [...] reflex 1+ . Crockett's sign negative. Coordination: Qgjjdy-ix-lyhl testing and rapid alternating movements are normal [...] plan, and return instructions documented in this encounterSaint Luke's East HospitalDenvmuiapr33-01-0531 History of Present illness Narrative* Tess Lopez, [...] to be instructed in home exercise program. Fpc Goals: To be met in 10 weeks [...] Please sign below. Date: documented in this [facility]12-03-2024 History of Present illness Narrative* ROYER Lozada - 05/17/2024 12:30 PM EST Images from the original note were not included. Reason for Appointment: EMG Patient: Pebbles Johnson : 1955 EMG Computer: [employer] Referring Physician: Dr. Mustapha Mccauley EMG: BLE yoker: Brian Liao RT(R) Office Location: [place] Reason for EMG: c/o numbness/tingling in bilateral feet, low back pain. No hx of DM. Taking ASA. Comments: Procedure was explained to the patient who expressed understanding. Patient appeared to have tolerated the test well despite some discomfort due to the nature of the test. documented in this [facility]11-19-2024 Hospital Discharge instructions Patient Education 05/03/2024 [...] your health care provider. General instructions Take vcgx-blk-zxpyhbx and prescription medicines only as told by [...] provider. Document Revised: 02/18/2021 Document Reviewed: 02/18/2021 [employer] Patient Education 2023 [employer]. Follow Up Care 10/16/2023 11:19:56 With:SARANYA WAYNE PA-C, URL Address: When:1 year [facility]-19-2024 NotePatient Education Obstetrics and Gynecology Overactive [...] health care provider. General instructions ??? Take buyo-uca-bjgbnsn and prescription medicines only as told by [...] you drink, and whe (more content not included)...[facility]11-14-2024 History of Present illness Narrative* Tess Lopez, [...] to be instructed in home exercise program. Fpc Goals: To be met in 10 weeks [...] 04/28/2024 3:02 PM EST documented in this encounterSaint Luke's East HospitalZkwbtfjazm27-75-8201 History of Present illness Narrative* Mustapha Mccauley [...] , wrist extensors , wrist flexor , record maker strength 5/5. LUE Strength deltoid , biceps , triceps , wrist extensors , wrist flexor , record maker strength 5/5. RLE Strength illopsoas, quadriceps, tibialis [...] reflex 1+ . Crockett's sign negative. Coordination: Lgdqlx-am-qmny testing and rapid alternating movements are normal [...] plan, and return instructions documented in this encounterSaint Luke's East HospitalQhkvjsvacs38-31-4336 [facility] Note Chief Complaint: Patient [...] dysfunction (abnormal relaxation). Normal (more content not included)...[facility] 10-16-2023 Hospital Discharge instructions Patient Education [...] rectum to the vagina. General instructions Take mtpn-svu-euoukhw and prescription medicines only as told by [...] provider. Document Revised: 11/29/2020 Document Reviewed: 11/29/2020 [employer] Patient Education 2022 [employer]. Follow Up Care 07/28/2023 11:08:09 With:MARYAM BEAVERS, Jean Paul Burton, URL Address: [address] [place] [address] [place] [address]- When: Unknown [facility] 02-13-2024 Hospital Discharge instructions Patient Education 07/28/2023 [...] [facility] [address] [place] [address]- Business (1) When:10/26/2023 11:01:17 [facility]02-13-2024 Note [id number] 07-28-2023 NoteCustom Cystoscopy with Urethral Dilation [...] you have a fever over 100 degreesFisher [facility]02[facility] Evaluation note* Encounter Date Diagnosis Assessment Notes Treatment Notes Treatment Clinical Notes Jul, Contact with and (suspected) exposure to covid-19 (ICD-10 - Z20.822) Jul, Viral URI (ICD-10 - J06.9) Drink plenty of fluids, get plenty of rest. Take Tylenol or Motrin as needed for aches pains or fevers. Follow-up with your family physician if no improvement in 2 to 3 days [facility] Other 01-15-2024 Hospital Discharge instructions Patient Education [...] including vitamins, herbs, eye drops, creams, and cmry-hkl-lbdwnfm medicines. ?Whether you are or may be [...] provider. Document Revised: 02/12/2022 Document Reviewed: 01/04/2021 [employer] Patient Education 2022 [employer] 06/29/2023 11:52:01 Urinary Incontinence Urinary Incontinence [...] nerve stimulation). ?For women, using a medical secretary receptionist to prevent urine leaks. This is a [...] right after experiencing incontinence. General instructions Take hwmb-vbx-nhtqdui and prescription medicines only as told by [...] important. Where to find more information National [place] of Diabetes and Digestive and Kidney Diseases: www.niddk.nih.gov [place] Urology Association: www.urologyhealth.org Contact a health care [...] provider. Document Revised: 01/04/2021 Document Reviewed: 01/04/2021 [employer] Patient Education 2022 [employer]. Follow Up Care 03/23/2023 10:22:20 With:MARYAM BEAVERS, Jean Paul Burton, URL Address: [facility] [address] , [place] [phone] When: Unknown Comments:sched cysto/urodynamics [facility] 12-20-2023 Evaluation note* Encounter Date [...] Edema of right ankle (ICD-10 - M25.471) [facility] Other 12-06-2023 Evaluation note* Encounter Date Diagnosis Assessment Notes Treatment Notes Treatment Clinical Notes May, Lumbar radiculopathy (ICD-10 - M54.16) [facility] Other 11-21-2023 Evaluation note* Encounter Date Diagnosis Assessment Notes Treatment Notes Treatment Clinical Notes Apr, Lumbar pain (ICD-10 - M54.50) Continue followup w chiropractor in 1 hr. XR order given. Discussed potential referral to pain management if needed. Will call w update. Taking motrin tid for pain. [facility] Other 11-15-2023 Evaluation note* Encounter Date Diagnosis [...] few weeks to go over the results. [facility] Other 10-26-2023 Evaluation note* Encounter Date Diagnosis Assessment Notes Treatment Notes Treatment Clinical Notes Mar, Anxiety, generalized (ICD-10 - F41.1) Skin exam normal. Suspect her anxiety is causing the itching sensation. Discussed medication and counseling. Followup in 1 month. [facility] Other 10-13-2023 Evaluation note* Encounter Date Diagnosis Assessment Notes Treatment Notes Treatment Clinical Notes Mar, Right ankle swelling (ICD-10 - M25.471) Discussed importance to r/o DVT. Consider referral based on US results. [facility] Other 09-27-2023 Evaluation note* Encounter Date Diagnosis Assessment Notes Treatment Notes Treatment Clinical Notes Feb, Essential hypertension (ICD-10 - I10) Discussed low bp today and how this can be linked to her symptoms of lightheadedness. Will hold chlorthalidone. Check bp daily. Call with readings. Followup in 1 month. [facility] Other 06-09-2023 Evaluation note* Encounter Date Diagnosis Assessment Notes Treatment Notes Treatment Clinical Notes Nov, Pruritus (ICD-10 - L29.9) Med could relieve itching and help her sleep Nov, Situational anxiety (ICD-10 - F41.8) Discussed medications and stress relief. Continue present chronic medications. [facility] Other 04-12-2023 Evaluation note* Encounter Date Diagnosis Assessment Notes Treatment Notes Treatment Clinical Notes Sep, Dysuria (ICD-10 - R30.0) [facility] Other 01-23-2023 Evaluation note* Encounter Date Diagnosis Assessment Notes Treatment Notes Treatment Clinical Notes Jun, Allergic cough (ICD-10 - R05.8) Discussed symptom management with Coricidin and Claritin. Call if fevers or shortness of breath occurs. Discussed masking at work for her own wellness as well as her coworkers and customers. [facility] Other 10-19-2022 Evaluation note* Encounter Date Diagnosis [...] get an MRI of the lumbar spine [facility] Other 10-18-2022 NotePROCEDURE: XR HIP LT 2 3V W PELVIS HISTORY: Left side sciatica ; low back and left hip pain for 2 weeks COMPARISON: None. FINDINGS: BONES:No fracture, acute abnormality, or significant arthropathy. SOFT TISSUES:No visible soft tissue swelling. EFFUSION:None visible. OTHER: Negative. IMPRESSION: 1. No acute bone abnormality or significant degenerative joint disease. Electronically authenticated by: KIRK CESAR Date: 2022-04-01 06:49[facility]06-01-20[facility] Evaluation note* Encounter Date Diagnosis Assessment Notes Treatment Notes Treatment Clinical Notes Nov, Other specified postprocedural states (ICD-10 - Z98.890) [facility] Other 05-16-2022 Evaluation note* Encounter Date Diagnosis Assessment Notes Treatment Notes Treatment Clinical Notes October, Primary osteoarthritis of left knee (ICD-10 - M17.12) [facility] Other 05-02-2022 Evaluation note* Encounter Date Diagnosis [...] healing. 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 I have [...] follow-up after this for further treatment options. [facility] Other 04-11-2022 Evaluation note* Encounter Date Diagnosis [...] follow-up after this for further treatment options. [facility] Other Chief complaint+Reason for visit Narrative* Chief Complaint Admit Date hip pain talk about referral, ear lavage August 16, 2024 1:59pm Reason for Visit Admit Date Lumbar pain August 16, 2024 1:59 pm Right hip pain August 16, 2024 1:59 pm [facility] Work Phone: Evaluation + Plan note Future Appointments Appointment Date:07/28/2023 09:00:00 AM Scheduled Provider: Location:[facility] Appointment Type:Urology FT Appointment Date:07/28/2023 10:15:00 AM Scheduled Provider: Location:[facility] Appointment Type:Urology FT [facility] evaluation + Plan note Future Appointments Appointment Date:10/16/2023 10:30:00 AM Scheduled Provider:Jean Paul URBAN MD Location:[facility] Future Appointments Appointment Date:04/22/2024 09:45:00 AM Scheduled Provider:Jean Paul URBAN MD Location:[facility] Appointment Type:URO Office Visit [facility] evaluation noteNo [employer] Other evaluation noteNo assessment information available [facility] Work Phone: [email or web address] note* Diagnosis Paresthesia- Primary Disturbance of skin [...] or radiculitis, unspecified documented in this encounter [facility] HealthcareEvaluation note* Diagnosis Lumbosacral radiculopathy- Primary Thoracic or lumbosacral neuritis or radiculitis, unspecified Paresthesia Disturbance of skin sensation documented in this encounter [facility] HealthcareEvaluation note* Diagnosis Paresthesia- Primary Disturbance of skin sensation Radiculopathy, lumbar region Thoracic or lumbosacral neuritis or radiculitis, unspecified documented in this encounter [facility] HealthcareEvaluation note* Diagnosis Weakness of both lower extremities- Primary Lumbosacral radiculopathy Thoracic or lumbosacral neuritis or radiculitis, unspecified documented in this encounter [facility] HealthcareEvaluation note* Diagnosis Onset Date Resolution Status Admit Date Lumbar pain acute August 16 1:59pm Right hip pain acute August 16, 2024 1:59pm [facility] Work Phone: Evaluation note* Diagnosis Lumbar spondylosis- Primary Lumbosacral spondylosis without myelopathy Lumbosacral radiculopathy Thoracic or lumbosacral neuritis or radiculitis, unspecified Paresthesia Disturbance of skin sensation documented in this encounter [facility] HealthcareEvaluation note* Diagnosis Lumbar radiculopathy- Primary Thoracic or lumbosacral neuritis or radiculitis, unspecified Lumbar spondylosis Lumbosacral spondylosis without myelopathy Lumbosacral radiculopathy Thoracic or lumbosacral neuritis or radiculitis, unspecified Paresthesia Disturbance of skin sensation [facility] - [facility]* Type Description Date Medical History Benign essential HTN Medical History Hypercholesterolemia Surgical History colonoscopy Surgical History partial hysterectomy Hospitalization History see above [employer] Other History general Narrative - Reported* Type [...] knee surgery 10/2021 Hospitalization History see above [facility] [employer] Other Hospital course Narrative No data available for this section [facility] progress note No data available for this section [facility] reason for referral (narrative)No reason for [facility] Work [facility]: Reason for visit NarrativeLOWER BACK - REFERRAL FOR [facility] [employer] Other Reason for visit Narrative* Consultation (Routine) - Closed Specialty Diagnoses / Procedures Referred By Gemma andrew Referred To Contact Neurology Diagnoses Polyneuropathy, unspecified Procedures CT OFFICE/OUTPATIENT NEW LOW MDM 30 MINUTES Jeffy Ramos MD [address] [place] [address] Phone: tel: fax: Mustapha Mccauley, DO [address] [address] Phone: tel: fax: Referral ID Status Reason Start Date Expiration Date V isits Requested Visits Authorized [id number] Closed Consult and Treat 03/22/2024 09/18/2024 1 1 [facility] N[facility]ative* Consultation (Routine) - Authorized Specialty Diagnoses / Procedures Referred By Gemma andrew Referred To Contact Physical Therapy Diagnoses Paresthesia Procedures CT OFFICE/OUTPATIENT NEW HIGH MDM 60 MINUTES Mustapha Mccauley DO [address] [place] [address] Phone: tel: fax: [facility] [address] [address] Phone: tel: fax: Referral ID Status Reason Start Date Expiration Date Visits Requested Visits Authorized [id number] Authorized Specialty Services Required 04/19/2024 10/16/2024 99 99 [facility] Narrative* Consultation (Routine) - Authorized Specialty Diagnoses / Procedures Referred By Contac t Referred To Contact Physical Therapy Diagnoses Paresthesia Procedures CT OFFICE/OUTPATIENT [facility] HIGH MDM 60 MINUTES Mustapha Mccauley DO [address] [place] [address] Phone: tel: fax: [facility] [address] [facility] [address] [place] [address] Phone: tel: fax: Referral ID Status Reason Start Date Expiration Date Visits Requested Visits Authorized [id number] Authorized Specialty Services Required 04/19/2024 06/14/2024 99 99 [facility] for [facility] Narrative* Injection (Routine) - Closed Specialty Diagnoses / Procedures Referred By Contac t Referred To Contact Neurology Diagnoses Lumbar spondylosis Lumbosacral radiculopathy Paresthesia Procedures Nerve Block Paula Benson, QUINTON [address] [place] [phone] Phone: tel: Referral ID Status Reason Start Date Expiration Date Visits Re quested Visits Authorized [id number] Closed 10/11/2024 01/05/2025 1 1 [facility] Healthcare Family History Relationship Condition Age at [...] Lumbar radiculopathy (M54.16) Referral Organization [facility] kavin Referring Provider First Name Jeffy Referring Provider Last Name Richard Referring Provider Specialty Family Medi cine Referred Organization [facility] Referred Address [address] [place], [place],[address] Referred Provider Specialty Pain Medicin e Referral Priority Routine Reason *Waiting for appt swelling and varicosities Diagnosis 1 Right ankle swelling (M25.471) Referral Organization [facility] Referring Provider First Name Jeffy Referring Provider Last Name Richard Referring Provider Specialty Family Medi cine Referred Organization [facility] Vascular Surge ry Referred Provider Gucci Meyers Referred Address [address] [facility] [address],[place], [place],[address] Referred Provider Specialty Vascular Navjot soledad Referral [...] 23, 2025 8: 27am EPI- BILAT L5-- APPROVED#[id number] A ugust 2024 1:15pm Chief Complaint Admit Date Ear Cleaning December 27, 2024 9:27 am Amb Documentation January 16, 2025 10: 25am 3-4 month follow up January 23, 2025 8: 27am EPI- BILAT L5-- APPROVED#[id number] A ugust 2024 1:15pm [facility] ER f/u February 02, 2025 2: [...] 23, 2025 8: 27am EPI- BILAT L5-- APPROVED#[id number] A ugust 2024 1:15pm [facility] ER f/u [...] call back. Call Back 04/20/2024 She called ym g she is off / and ; [...] Team Status: Active Member Role Status Dates Jefyf Ramos MD Primary Care Provider Active Start: [...] End: January 23, 2025 Paula Benson , [employer] Attending Provider Active Start: January 23, 2025 [...] Active Gucci Meyers MD Attending Provider Active Office Support Relationship Specialty Start Date End Date Jeffy Ramso MD [address] [facility] [place] [address] PCP - General Family Medicine 02/25/24 Office Support Relationship Specialty Start Date End Date Jeffy Ramos MD [address] [facility] [place] [address] PCP - General Family Medicine 02/25/24 Office Support Relationship Specialty Start Date End Date Jeffy Ramos MD [address] [facility] [place] [address] PCP - General Family Medicine 02/25/24 Office Support Relationship Specialty Start Date End Date Jeffy Ramos MD [address] [facility] [place] [address] PCP - General Family Medicine 02/25/24 Office Support Relationship Specialty Start Date End Date Jeffy Ramos MD [address] [facility] [place] [address] PCP - General Family Medicine 02/25/24 Office Support Relationship Specialty Start Date End Date Jeffy Ramos MD [address] [facility] [place] [address] PCP - General Family Medicine 02/25/24 Office Support Relationship Specialty Start Date End Date Jeffy Ramos MD [address] [facility] [place] [address] PCP - General Family Medicine 02/25/24 Office Support Relationship Specialty Start Date End Date Jeffy Ramos MD [address] [facility] [place] [address] PCP - General Family Medicine 02/25/24 Office Support Relationship Specialty Start Date End Date Jeffy Ramos MD [address] [facility] [place] [address] PCP - General Family Medicine 02/25/24 Office Support Relationship Specialty Start Date End Date Jeffy Ramos MD [address] [facility] [place] [address] PCP - General Family Medicine 02/25/24 Mustapha Mccauley DO [address] [place] [address] Referring Physician Neurology 05/17/24 Mer Rodriguez NP [address] [place] [address] Nurse Practitioner Neurology 05/17/24 Office Support Relationship Specialty Start Date End Date Jeffy Ramos MD [address] [facility] [place] [address] PCP - General Family Medicine 02/25/24 Mustapha Mccauley DO [address] [place] [address] Referring Physician Neurology 05/17/24 Mer Rodriguez NP [address] [place] [address] Nurse Practitioner Neurology 05/17/24 Paula Benson NP [address] [place] [address] Nurse Practitioner Neurology 05/17/24 Office Support Relationship Specialty Start Date End Date Jeffy Ramos MD [address] [facility] [place] [address] PCP - General Family Medicine 02/25/24 Mustapha Mccauley DO [address] [place] [address] Referring Physician Neurology 05/17/24 Mer Rodriguez NP [address] [place] [address] Nurse Practitioner Neurology 05/17/24 Paula Benson NP [address] [place] [phone] Nurse Practitioner Neurology 05/17/24 Office Support Relationship Specialty Start Date End Date Jeffy Ramos MD [address] [facility] [place] [address] PCP - General Family Medicine 02/25/24 Mustapha Mccauley DO [address] [place] [address] Referring Physician Neurology 05/17/24 Mer Rodriguez NP [address] [place] [address] Nurse Practitioner Neurology 05/17/24 Paula Benson NP [address] [place] [phone] Nurse Practitioner Neurology 05/17/24 Office Support Relationship Specialty Start Date End Date Jeffy Ramos MD [address] [facility] [place] [address] PCP - General Family Medicine 02/25/24 Mustapha Mccauley DO [address] [phone] Referring Physician Neurology 05/17/24 Mer Rodriguez NP [address] [phone] Nurse Practitioner Neurology 05/17/24 Paula Benson NP [address] [phone] Nurse Practitioner Neurology 05/17/24 Team [...] September 06, 2024 End: September 06, 2024 Office Support Relationship Specialty Start Date End Date Jeffy Ramos MD [address] [place], [place] [address], [place] [address] PCP - General Family Medicine 02/25/24 Mustapha Mccauley DO [address], [facility] Referring Physician Neurology 05/17/24 Mer Rodriguez NP [address] [place] [address] Nurse Practitioner Neurology 05/17/24 Paula Benson NP [address] [phone] Nurse Practitioner Neurology 05/17/24 Office Support Relationship Specialty Start Date End Date Jeffy Ramos MD [address] [facility] [place] [address] PCP - General Family Medicine 02/25/24 Mustapha Mccauley DO [address] [address] [place] [address] Referring Physician Neurology 05/17/24 Mer Rodriguez NP [address] [address] [place] [address] Nurse Practitioner Neurology 05/17/24 Paula Benson NP [address] [address] [place] [phone] Nurse Practitioner Neurology 05/17/24 Office Support Relationship Specialty Start Date End Date Jeffy Ramos MD PCP - General Family Medicine 02/25/24 Mustapha Mccauley DO [address] [address] [place] [address] Referring Physician Neurology 05/17/24 Mer Rodriguez NP [address] [address] [place] [address] Nurse Practitioner Neurology 05/17/24 Paula Benson NP [address] [address] [place] [phone] Nurse Practitioner Neurology 05/17/24 Office Support Relationship Specialty Start Date End Date Jeffy Ramos MD PCP - General Family Medicine 02/25/24 Mustapha Mccauley DO [address] [address] [place] [address] Referring Physician Neurology 05/17/24 Mer Rodriguez, QUINTON [address] [place] [address] Nurse Practitioner Neurology 05/17/24 Paula Benson, QUINTON [address] [place] [phone] Nurse Practitioner Neurology 05/17/24 Team Status: [...] End: January 23, 2025 Paula Benson , [employer] Attending Provider Active Start: January 23, 2025 [...] and content) DATE CREATED [facility]22 [facility] DATE CREATED AUTHOR AUTHOR'S ORGANIZ ATION 05/06/2024 [facility] DATE CREATED AUTHOR AUTHOR'S ORGANIZ ATION 09/10/2024 [facility] DATE CREATED AUTHOR AUTHOR'S ORGANIZ ATION 10/12/2024 [facility] DATE CREATED AUTHOR AUTHOR'S ORGANIZ ATION 12/18/2024 [facility] FOR RECORDS PERTAINING TO PATIENTS [...] BE BASED ON THE PRIMARY CLINICAL RECORDS. [employer] provides no warranty or guarantee of the accuracy or completeness of information in this document.
[2025-03-02 10:06] LABS: Microalbum Creatinine Ratio Ur 6.4 mg/g (0.0-29.9)
[2025-03-02 11:18] LABS: Anion Gap 13.6; Blood Urea Nitrogen 19.0 mg/dL (7.0-18.0); Calcium 9.4 mg/dL (8.5-10.1); Carbon Dioxide 30.0 mmol/L (21.0-32.0); Chloride 102 mmol/L (98-107); Estimated GFR (African America >60 (>=60 mL/min/1.73m^2); Estimated GFR (Non-African Ame 58 (>=60 mL/min/1.73m^2); Glucose 111 mg/dL (74-106); Potassium 3.6 mmol/L (3.5-5.1); Sodium 142 mmol/L (136-145)
== END 2025-03-02 09:05 | disposition home or self-care (01) ==
LOC: LAB 09:05
PROVIDERS: PCP Family Medicine; Visit Provider Family Medicine
DX: E78.2 Mixed hyperlipidemia (principal); I10 Essential (primary) hypertension
CPT/HCPCS: 36415; 80048; 80061; 80076; 82043; 82570